=== PATIENT | female | born 1935 | race Caucasian/White ===

== ENCOUNTER 2017-11-04 09:06 | Observation (INO) | payer OTHER ==
[2017-11-04 09:49] LABS: Absolute Lymphocytes (CBC) 2.8 K/uL (0.7-4.9); Absolute Monocytes 0.6 K/uL (0.1-1.3); Absolute Neutrophil 5.5 K/uL (1.8-8.0); Basophils % 1.1 % (0-1.3); Eosinophils % 2.1 % (0-4.4); Hematocrit 38.8 % (36.0-45.0); Lymphocytes % 30.4 % (15.3-44.8); MCH 32.3 pg (27.0-35.0); MCV 93.9 fL (80-100); MPV 10.6 fL (7.6-11.3); Monocytes % 6.3 % (3.3-12.3); RBC Red Blood Cell Count 4.13 M/uL (3.86-4.86)
[2017-11-04 10:21] LABS: Bilirubin Direct 0.1 mg/dL (0-0.2); Bilirubin Total 0.7 mg/dL (0.2-1.0); Potassium 4.9 mmol/L (3.5-5.1); Protein, Total 7.3 g/dL (6.4-8.2)
--- NOTE | 2017-11-04 11:09 | RAD REPORT ---
EXAM DESCRIPTION: CT - Abdomen Pelvis W Contrast - 11/04/2017 10:52 am CLINICAL HISTORY: Abdominal pain, bloody stools, history of diverticulitis, hemorrhoids and renal ca lculi. Patient is status post hysterectomy, ovarian cyst removal and bladder suspension COMPARISON: CT study November 2016 TECHNIQUE: Biphasic, helical CT imaging of the abdomen and pelvis was performed following 100 ml non -ionic IV contrast. No oral contrast given. All CT scans are performed using dose optimization technique as appropriate and may include automated exposure control or mA/KV adjustment according to patient size. FINDINGS: No acute lung base pleural or parenchymal process. No pericardial effusion seen. Again not ed is the very large hiatal hernia with the majority of the stomach intrathoracic. This is similar to the examination of 11 months earlier. The liver, spleen, and pancreas show no suspicious findings. Gallbladder and biliary tree are also wi thout suspicious finding. Symmetric renal function is seen with no hydronephrosis or suspicious renal mass. Patient has numerou s variably sized cysts throughout the kidneys. A few have mildly complex characteristics. No clear ch clifford from almost 1 year earlier. No urinary bladder abnormality. Uterus is absent. Ovaries may be abs ent or obscured by the pelvic floor bowel pattern. An ovarian based mass is not suspected. No wall thickening or mass seen in the herniated and intraabdominal portions of the stomach. No dilat ed small bowel loops. There is a loop of small bowel that is herniated into the left inguinal canal. This matches the examination of 1 year earlier. No wall thickening, edema or other findings of an acu te nature. Patient has a large amount of stool throughout the colon. Patient has a very tortuous and redundant r ectosigmoid colon with very extensive diverticulosis. No clearly defined diverticulitis. Mild mucosal level inflammatory changes could be occult on this study. The hiatal hernia contains a very small po rtion of the left-side transverse colon. No acute process. No free air, free fluid or inflammatory stranding. No mass or bulky lymphadenopathy. No adrenal abno rmality. Disc and bony degenerative changes are present. No pathologic bone process or significant change from comparison. IMPRESSION: Very extensive diverticulosis within an extremely tortuous and redundant rectosigmoid co yoav. An active colon process is not seen though more mild mucosal level inflammatory process could be occu lt on this study. Very large hiatal hernia containing most of the stomach and a small portion of the transverse colon. Left inguinal hernia contains a short segment of small bowel. Neither hernia shows evidence for an ac ashlyn process in the findings are stable from comparison.
--- NOTE | 2017-11-04 11:37 | EDPHYS ---
Physician Documentation [facility] Name: Kevin Andujar Age: 82 yrs Sex: Female : 1935 Arrival Date: 11/04/2017 Time: 09:09 Bed 20 Private MD: Gold Florence ED Physician Justin Khalil HPI: 11/04 16:46 This 82 yrs old Female presents to ER via Ambulatory with complaints of kdr Rectal Bleeding. 16:46 The patient presents to the emergency department with bleeding from the rectum/anus, kdr that is mild. Onset: The symptoms/episode began/occurred suddenly, this morning, This is a chronic, intermittent problem that is again recurrent. Her stools have had dark blood but minor rectal pain. She has hemorrhoids . Context: the patient has no known special context relating to the rectal area complaint(s). Modifying factors: The symptoms are alleviated by nothing, The symptoms are aggravated by nothing. Associate signs and symptoms: Pertinent positives: abdominal pain in the abdomen diffusely. The patient has experienced similar episodes in the past, chronically. The patient has not recently seen a physician. Historical: - Allergies: 09:24 No Known Allergies; sv - Home Meds: 09:24 amlodipine 10 mg tab 1 tab once daily for Hypertension [Active]; valsartan 160 mg Oral sv tab 1 tab once daily for Hypertension [Active]; 09:29 tamsulosin 0.4 mg Oral cp24 1 cap once daily for Urolithiasis [Active]; tw2 - PMHx: 09:24 Diverticulitis; hemorrhoids; Hypertension; Urolithiasis; sv - PSHx: 09:24 Hysterectomy; Tonsillectomy; Bladder suspension; ovarian cyst removed from R ovary; L sv arm leasion; - Immunization history:: Adult Immunizations up to date. - Social history:: Smoking status: Patient/guardian denies using tobacco. - Ebola Screening: : No symptoms or risks identified at this time. ROS: 16:46 Constitutional: Negative for fever, chills, and weight loss, Eyes: Negative for injury, kdr pain, redness, and discharge, Neck: Negative for injury, pain, and swelling, Cardiovascular: Negative for chest pain, palpitations, and edema, Respiratory: Negative for shortness of breath, cough, wheezing, and pleuritic chest pain, Back: Negative for injury and pain, : Negative for injury, bleeding, discharge, and swelling, MS/Extremity: Negative for injury and deformity, Skin: Negative for injury, rash, and discoloration, Neuro: Negative for headache, weakness, numbness, tingling, and seizure activity. Psych: Negative for depression, anxiety, suicide ideation, homicidal ideation, and hallucinations, Allergy/Immunology: Negative for hives, rash, and allergies, Endocrine: Negative for neck swelling, polydipsia, polyuria, polyphagia, and marked weight changes, Hematologic/Lymphatic: Negative for swollen nodes, abnormal bleeding, and unusual bruising. 16:46 Abdomen/GI: Positive for abdominal pain, rectal bleeding, Negative for nausea and vomiting, nausea, vomiting, and diarrhea, abdominal distension, dysphagia, hematemesis, black/tarry stool, rectal pain, bowel incontinence. Exam: 16:46 Constitutional: This is a well developed, well nourished patient who is awake, alert, kdr and in no acute distress. Head/Face: Normocephalic, atraumatic. Eyes: Pupils equal round and reactive to light, extra-ocular motions intact. Lids and lashes normal. Conjunctiva and sclera are non-icteric and not injected. Cornea within normal limits. Periorbital areas with no swelling, redness, or edema. Neck: Trachea midline, no thyromegaly or masses palpated, and no cervical lymphadenopathy. Supple, full range of motion without nuchal rigidity, or vertebral point tenderness. No Meningismus. Chest/axilla: Normal chest wall appearance and motion. Nontender with no deformity. No lesions are appreciated. Cardiovascular: Regular rate and rhythm with a normal S1 and S2. No gallops, murmurs, or rubs. Normal PMI, no JVD. No pulse deficits. Respiratory: Lungs have equal breath sounds bilaterally, clear to auscultation and percussion. No rales, rhonchi or wheezes noted. No increased work of breathing, no retractions or nasal flaring. Back: No spinal tenderness. No costovertebral tenderness. Full range of motion. Skin: Warm, dry with normal turgor. Normal color with no rashes, no lesions, and no evidence of cellulitis. MS/ Extremity: Pulses equal, no cyanosis. Neurovascular intact. Full, normal range of motion. Neuro: Awake and alert, GCS 15, oriented to person, place, time, and situation. Cranial nerves II-XII grossly intact. Motor strength 5/5 in all extremities. Sensory grossly intact. Cerebellar exam normal. Normal gait. Psych: Awake, alert, with orientation to person, place and time. Behavior, mood, and affect are within normal limits. 16:46 Abdomen/GI: Inspection: abdomen appears normal, Bowel sounds: normal, active, Palpation: soft, nontender, in all quadrants, Rectal exam: rectal tone normal, Stool: brown, guaiac positive. Vital Signs: 09:24 BP 159 / 111; Pulse 96; Resp 18; Temp 98.5; Pulse Ox 96% ; Weight 49.9 kg; Height 5 ft. sv 2 in. (157.48 cm); Pain 0/10; 09:28 BP 146 / 74; Pulse 90; Resp 19; Pulse Ox 95% on R/A; tw2 11:14 BP 150 / 65; Pulse 96; Resp 17; Pulse Ox 97% on R/A; aj 13:16 BP 151 / 77; Pulse 78; Resp 18; Pulse Ox 98% on R/A; aj 09:24 Body Mass Index 20.12 (49.90 kg, 157.48 cm) sv MDM: 11:36 Patient medically screened. kdr 16:46 Data reviewed: vital signs, nurses notes, lab test result(s), radiologic studies. kdr Counseling: I had a detailed discussion with the patient and/or guardian regarding: the historical points, exam findings, and any diagnostic results supporting the discharge/admit diagnosis, lab results, radiology results, the need for further work-up and treatment in the hospital. 11/04 09:23 Order name: Amylase, Serum; Complete Time: 11:28 kdr 11/04 09:23 Order name: Basic Metabolic Panel; Complete Time: 11:28 kdr 11/04 09:23 Order name: CBC with Diff; Complete Time: 11:28 kdr 11/04 09:23 Order name: Creatinine for Radiology; Complete Time: 11:28 kdr 11/04 09:23 Order name: Hepatic Function; Complete Time: 11:28 kdr 11/04 09:23 Order name: Lipase; Complete Time: 11:28 kdr 11/04 09:23 Order name: Urine Microscopic Only kdr 11/04 11:54 Order name: Urine Dipstick--Ancillary (enter results) eb 11/04 11:59 Order name: Basic Metabolic Panel EDMS 11/04 11:59 Order name: Basic Metabolic Panel EDMS 11/04 11:59 Order name: Basic Metabolic Panel EDMS 11/04 11:59 Order name: Basic Metabolic Panel EDMS 11/04 11:59 Order name: Magnesium EDMS 11/04 11:59 Order name: Magnesium EDMS 11/04 09:23 Order name: IV Saline Lock; Complete Time: 09:30 kdr 11/04 09:23 Order name: Labs collected and sent; Complete Time: 09:30 kdr 11/04 09:23 Order name: Urine Dipstick-Ancillary (obtain specimen); Complete Time: 11:27 kdr 11/04 09:41 Order name: CT Abd/Pelvis - W/Contrast; Complete Time: 11:28 kdr 11/04 11:59 Order name: Magnesium EDMS 11/04 11:59 Order name: Magnesium EDMS 11/04 11:59 Order name: Full Liquid EDMS 11/04 11:59 Order name: Urinalysis EDMS 11/04 11:59 Order name: CBC with Automated Diff EDMS 11/04 11:59 Order name: CBC with Automated Diff EDMS 11/04 11:59 Order name: CBC with Automated Diff EDMS 11/04 11:59 Order name: CBC with Automated Diff EDMS 11/04 12:00 Order name: Urine Culture EDMS Administered Medications: No medications were administered Disposition: 11/04/17 11:36 Hospitalization ordered by Wilder Galaviz for Observation. Preliminary diagnosis is Rectal bleeding, abdominal pain, GI bleeding. - Bed requested for Telemetry/MedSurg (observation). - Status is Observation. aj - Condition is Fair. - Problem is an acute exacerbation. - Symptoms are unchanged. UTI on Admission? No Signatures: Dispatcher [employer] EDMS Roma Davila RN RN sv Woody, Diana, RN RN dw Myers, Amanda, RN RN aj Rittger, Kevin, MD MD kdr Wise, Tara, RN RN tw2 Corrections: (The following items were deleted from the chart) 13:01 11:36 Hospitalization Ordered by Wilder Galaviz DO for Observation. Preliminary monica diagnosis is Rectal bleeding, abdominal pain, GI bleeding. Bed requested for Telemetry/MedSurg (observation). Status is Observation. Condition is Fair. Problem is an acute exacerbation. Symptoms are unchanged. UTI on Admission? No. kdr 13:43 13:01 11/04/2017 11:36 Hospitalization Ordered by Wilder Galaviz DO for Observation. aj Preliminary diagnosis is Rectal bleeding, abdominal pain, GI bleeding. Bed requested for Telemetry/MedSurg (observation). Status is Observation. Condition is Fair. Problem is an acute exacerbation. Symptoms are unchanged. UTI on Admission? No. dw
--- NOTE | 2017-11-04 11:37 | ER ---
Nurse's Notes [facility] Name: Kevin Andujar Age: 82 yrs Sex: Female : 1935 Arrival Date: 11/04/2017 Time: 09:09 Bed 20 Private MD: Gold Florence Diagnosis: Rectal bleeding, abdominal pain, GI bleeding Presentation: 11/04 09:17 Presenting complaint: Patient states: intermittent bloody stool x "couple weeks" , sv "dark" in color. Increased flatulence, c/o dizziness. Transition of care: patient was not received from another setting of care. Onset of symptoms was September 2017. Care prior to arrival: None. 09:17 Method Of Arrival: Ambulatory sv 09:17 Acuity: NOE 3 sv 09:28 Risk Assessment: Do you want to hurt yourself or someone else? Patient reports no tw2 desire to harm self or others. Initial Sepsis Screen: Does the patient meet any 2 criteria? No. Patient's initial sepsis screen is negative. Does the patient have a suspected source of infection? No. Patient's initial sepsis screen is negative. Historical: - Allergies: 09:24 No Known Allergies; sv - Home Meds: 09:24 amlodipine 10 mg tab 1 tab once daily for Hypertension [Active]; valsartan 160 mg Oral sv tab 1 tab once daily for Hypertension [Active]; 09:29 tamsulosin 0.4 mg Oral cp24 1 cap once daily for Urolithiasis [Active]; tw2 - PMHx: 09:24 Diverticulitis; hemorrhoids; Hypertension; Urolithiasis; sv - PSHx: 09:24 Hysterectomy; Tonsillectomy; Bladder suspension; ovarian cyst removed from R ovary; L sv arm leasion; - Immunization history:: Adult Immunizations up to date. - Social history:: Smoking status: Patient/guardian denies using tobacco. - Ebola Screening: : No symptoms or risks identified at this time. Screenin:28 Abuse screen: Denies threats or abuse. Nutritional screening: No deficits noted. tw2 Tuberculosis screening: No symptoms or risk factors identified. Fall Risk None identified. Assessment: 09:40 General: Appears in no apparent distress. comfortable, Behavior is calm, cooperative, aj appropriate for age. Pain: Denies pain. Neuro: Level of Consciousness is awake, alert, obeys commands, Oriented to person, place, time, situation, Appropriate for age. Cardiovascular: Denies chest pain. Respiratory: Airway is patent Respiratory effort is even, unlabored, Respiratory pattern is regular, symmetrical. GI: Abdomen is flat, non-distended, Reports cramping, bloody stool. Derm: Skin is intact, is healthy with good turgor, Skin is pink, warm \\T\\ dry. normal. 11:42 Reassessment: Dr. Galaviz at bedside at this time. tw2 13:25 Reassessment: Patient appears in no apparent distress at this time. No changes from aj previously documented assessment. Patient and/or family updated on plan of care and expected duration. Pain level reassessed. Patient is alert, oriented x 3, equal unlabored respirations, skin warm/dry/pink. Vital Signs: 09:24 BP 159 / 111; Pulse 96; Resp 18; Temp 98.5; Pulse Ox 96% ; Weight 49.9 kg; Height 5 ft. sv 2 in. (157.48 cm); Pain 0/10; 09:28 BP 146 / 74; Pulse 90; Resp 19; Pulse Ox 95% on R/A; tw2 11:14 BP 150 / 65; Pulse 96; Resp 17; Pulse Ox 97% on R/A; aj 13:16 BP 151 / 77; Pulse 78; Resp 18; Pulse Ox 98% on R/A; aj 09:24 Body Mass Index 20.12 (49.90 kg, 157.48 cm) sv ED Course: 09:09 Patient arrived in ED. mr 09:09 Gold Florence MD is Private Physician. mr 09:09 Justin Khalil MD is Attending Physician. kdr 09:17 Arm band placed on right wrist. Patient placed in an exam room, on a stretcher. sv 09:23 Triage completed. sv 09:28 Placed in gown. Bed in low position. Call light in reach. Side rails up X 1. Cardiac tw2 monitor on. Pulse ox on. NIBP on. Warm blanket given. 09:40 Sol Mcdonnell, GEETHA is Primary Nurse. aj 09:40 Initial lab(s) drawn, by ct, sent to lab. Inserted saline lock: 20 gauge in right aj antecubital area, using aseptic technique. Blood collected. 10:[address] via wheelchair. 2 10:51 CT completed. Patient tolerated procedure well. Patient moved back from CT. 2 10:52 CT Abd/Pelvis - W/Contrast In Process Unspecified. EDMS 11:27 Urine Microscopic Only Sent. 5 11:27 Urine collected: clean catch specimen, clear. [facility] 11:35 Wilder Galaviz DO is Hospitalizing Provider. kdr 13:25 No provider procedures requiring assistance completed. Patient admitted, IV remains in aj place. Administered Medications: No medications were administered Outcome: 11:36 Decision to Hospitalize by Provider. kdr 13:25 Admitted to Med/surg aj 13:25 Condition: good 13:25 Instructed on the need for admit. 13:43 Patient left the ED. aj Signatures: Dispatcher [employer] EDRoma Rosales, RN Sol Martínez RN RN aj Rittger, Kevin, MD MD [facility] Kathleen Davila Tara, RN RN tw2 Martinez, Maria [facility] Farnaz Dorantes 2
[2017-11-04] MEDS ORDERED: TRAMADOL HCL 50 MG TAB PO PRN (11:53)
[2017-11-04] MEDS ORDERED: ONDANSETRON 4 MG/2 ML VIAL IV PRN (11:53)
[2017-11-04] MEDS ORDERED: HYDROCODONE/APAP 7.5/325 MG TAB PO PRN (11:53)
[2017-11-04 11:58] LABS: Urine Bacteria 20-50 /HPF (<20); Urine Culture Reflex Order REFLEXED
--- NOTE | 2017-11-04 12:40 | P.HP ---
Certification for Inpatient Patient admitted to: Observation With expected LOS: <2 Midnights Patient will require the following post-hospital care: None Practitioner: I am a practitioner with admitting privileges, knowledge of patient current condition, hospital course, and medical plan of care. Services: Services provided to patient in accordance with Admission requirements found in Title 42 Section 412.3 of the Code of Federal Regulations Patient History Date of Service: 11/04/17 Primary Care Provider: Dr. Florence; GI-Dr. Donohue/Dr. Walter Reason for admission: Melena History of Present Illness: 82-year-old female presented emergency room with melena. Patient reports melena over the past week. She also reports some episodes of cramping to the abdominal region last week. Patient reports a history of severe diverticulitis and diverticulosis. She was last seen by GI about a year ago. She was last hospitalized for diverticulitis about a year ago. Patient not feeling well. She denied any significant nausea, vomiting. No rectal bleeding was noted. She came to the ER for further evaluation. In the ER patient was evaluated. Hemoglobin 13.3. White count 9.1. Sodium 141 , potassium 4.9, BUN of 38, creatinine 1.2 with a GFR 43. Glucose 109. Lipase 397, amylase 80. CT abdomen showed extensive diverticulosis. No definitive diverticulitis was noted showed bacteria. The patient has a large hiatal hernia. Left inguinal hernia noted. The patient was admitted for further evaluation. When I saw the patient ER, she appeared comfortable. No significant abdominal pain noted. No nausea vomiting noted. Patient with history of diverticulosis and diverticulitis in the past. She reports seen by a GI. Her last colonoscopy was a year ago. She also saw all surgery in the past for possible need for colectomy. Surgery did not recommend colectomy at that time. Patient with history of hypertension, GERD with hiatal hernia. She does not smoke or drink. Allergies No Known Drug Allergies Allergy (Verified 11/30/16 02:56) Unknown No Know Allergy (Uncoded 11/30/16 03:08) Unknown Home medications list reviewed: Yes Home Medications: Amlodipine Besylate 10 mg PO DAILY 03/05/16 Tamsulosin [Flomax*] 0.4 mg PO BEDTIME 03/05/16 Valsartan [Diovan*] 160 mg PO DAILY 03/05/16 Ciprofloxacin HCl [Cipro 500 MG Tablet] 500 mg PO BID #20 tab 12/01/16 metroNIDAZOLE [Flagyl] 500 mg PO Q8H #30 tablet 12/01/16 - Past Medical/Surgical History Diabetic: No -: Diverticulosis, history diverticulitis -: HTN -: History of bladder retention, status post bladder suspension -: Frequent UTI -: GERD with hiatal hernia -: Hemorrhoids -: Chronic renal disease -: Bladder suspension -: Hysterectomy -: Removal of cyst to the right ovary -: Removal of cyst to the left wrist -: Tonsillectomy Psychosocial/ Personal History: Patient is a . She lives by herself. She has 2 children. - Family History Mother -: Lung disease, GI disease Notes: diverticulosis Father Notes: of nephritis at age of 45 - Social History Smoking Status: Never smoker Alcohol use: No CD- Drugs: No Caffeine use: Yes Place of Residence: Home Review of Systems General: Weakness, As per HPI Eyes: Unremarkable ENT: Unremarkable Respiratory: Unremarkable Cardiovascular: Unremarkable Gastrointestinal: Abdominal Pain, Melena, As per HPI Genitourinary: Frequency, Incontinence, As per HPI Musculoskeletal: Unremarkable Integumentary: Unremarkable Neurological: Unremarkable Lymphatics: Unremarkable Physical Examination - Physical Exam General: Alert, In no apparent distress, Oriented x3, Cooperative HEENT: Atraumatic, Normocephalic, PERRLA, Mucous membr. moist/pink Neck: Supple, No Thyromegaly Respiratory: Clear to auscultation bilaterally, Normal air movement Cardiovascular: Normal pulses, Regular rate/rhythm Gastrointestinal: Normal bowel sounds, Soft and benign, Non-distended, No ascites, No tenderness, No masses, No rebound, No guarding Musculoskeletal: No erythema, No tenderness, No warmth Integumentary: No tenderness/swelling, No erythema, No warmth, No cyanosis Neurological: Normal speech, Normal strength at 5/5 x4 extr, Normal tone, Normal affect - Studies Laboratory Data (last 24 hrs) 11/04/17 09:30: Creatinine 1.20 11/04/17 09:30: WBC 9.1, Hgb 13.3, Hct 38.8, Plt Count 232 11/04/17 09:30: Sodium 141, Potassium 4.9, BUN 38 H, Creatinine 1.20, Glucose 109 H, Total Bilirubin 0.7, AST 21, ALT 21, Alkaline Phosphatase 87, Amylase 80 , Lipase 397 H Assessment and Plan - Problems (Diagnosis) (1) Melena Current Visit: Yes Status: Acute Plan: Melena likely related to her diverticulosis. CT scan shows no diverticulitis but will start IV antibiotic therapy. Will provide IV fluids. Will monitor closely. Anticipate discharge tomorrow if without any significant pain or melena. Hemoglobin stable at this time. Patient will likely need to follow up with GI as an outpatient. Patient has seen surgery in the past. Surgery did not recommend intervention. Patient does not desire any surgical intervention. (2) Diverticulitis Current Visit: Yes Status: Suspected Plan: Patient may have mild diverticulitis. Will start IV antibiotic therapy. Will monitor closely. Continue IV fluids. (3) Hiatal hernia with GERD Current Visit: Yes Status: Chronic Plan: Will provide PPI. (4) Chronic renal disease Current Visit: Yes Status: Acute Plan: Acute on chronic renal disease. Will monitor closely. Will provide IV fluids. Qualifiers: Chronic kidney disease stage: stage 3 (moderate) Qualified Code(s): N18.3 - Chronic kidney disease, stage 3 (moderate) (5) Diverticulosis Onset Date: 11/30/16 Current Visit: No Status: Chronic Plan: Patient has known history of diverticulosis. CT scan reviewed. Continue as above. Anticipate discharge tomorrow. Qualifiers: Diverticulosis bleeding: diverticulosis without bleeding (6) UTI (urinary tract infection) Current Visit: No Status: Acute Plan: Will cover with IV antibiotic therapy. Will send for urine culture. Qualifiers: Urinary tract infection type: site unspecified Hematuria presence: without hematuria Qualified Code(s): N39.0 - Urinary tract infection, site not specified (7) HTN (hypertension) Onset Date: 11/30/16 Current Visit: No Status: Chronic Plan: Will provide medication. Qualifiers: Hypertension type: essential hypertension Discharge Plan: Home Plan to discharge in: 24 Hours - Advance Directives Does patient have a Living Will: Yes Does patient have a Durable POA for Healthcare: Yes - Code Status/Comfort Care Code Status Assessed: Yes (Patient wishes to be DNR) Time Spent Managing Pts Care (In Minutes): 55
[2017-11-04 12:42] LABS: Urine Blood 2+ (NEG); Urine Glucose NEGATIVE (NEG); Urine Protein 1+ (NEG); Urine Specific Gravity 1.005 (1.005-1.030); Urine pH 5.5 (5.0-7.0)
[2017-11-04] MEDS: CIPROFLOXACIN 400mg IV 400 MG/200 ML BAG IV SCH ×2 (14:13→21:28)
[2017-11-04] MEDS: METRONIDAZOLE 500mg IVPB 500 MG/100 ML BAG IV SCH ×2 (14:14→17:00)
[2017-11-04] MEDS: ENOXAPARIN 30 MG/0.3 ML SQ SCH (14:15)
[2017-11-04] MEDS: NA CHLORIDE 0.9% 1,000 ML IV SCH ×2 (14:15→21:28)
[2017-11-04] MEDS: ACETAMINOPHEN 500 MG TAB PO PRN ×2 (14:27→23:13)
[2017-11-04 16:32] VITALS: BMI 20.1
[2017-11-04] MEDS ORDERED: AMLODIPINE 10 MG TAB PO SCH (21:00)
[2017-11-05] MEDS: METRONIDAZOLE 500mg IVPB 500 MG/100 ML BAG IV SCH ×2 (00:09→10:21)
[2017-11-05 00:36] VITALS: O2SAT 94
[2017-11-05] MEDS: ACETAMINOPHEN 500 MG TAB PO PRN (05:04)
[2017-11-05 05:27] LABS: Absolute Lymphocytes (CBC) 2.8 K/uL (0.7-4.9); Absolute Monocytes 0.8 K/uL (0.1-1.3); Absolute Neutrophil 5.8 K/uL (1.8-8.0); Basophils % 0.6 % (0-1.3); Eosinophils % 1.9 % (0-4.4); Hematocrit 38.9 % (36.0-45.0); Lymphocytes % 29.3 % (15.3-44.8); MCV 94.8 fL (80-100); MPV 10.5 fL (7.6-11.3); Monocytes % 7.9 % (3.3-12.3)
[2017-11-05 05:31] LABS: Magnesium 2.1 mg/dL (1.8-2.4); Potassium 4.2 mmol/L (3.5-5.1)
[2017-11-05] MEDS ORDERED: PANTOPRAZOLE 40MG TABLET PO SCH (07:30)
[2017-11-05] MEDS: NA CHLORIDE 0.9% 1,000 ML IV SCH (08:00)
[2017-11-05] MEDS ORDERED: AMLODIPINE 10 MG TAB PO SCH (09:00)
[2017-11-05 09:04] VITALS: BP 131/60; TEMP 97.4
--- NOTE | 2017-11-05 10:04 | P.DS ---
Admission Date: 11/04/17 Discharge Date: 11/05/17 Primary Care Provider: Dr. Florence; GI-Dr. Donohue/Dr. Walter Disposition: ROUTINE DISCHARGE Discharge Condition: GOOD Reason for Admission: Melena Procedures: CT Scan: COMPARISON: CT study November 2016 TECHNIQUE: Biphasic, helical CT imaging of the abdomen and pelvis was performed following 100 ml non-ionic IV contrast. No oral contrast given. All CT scans are performed using dose optimization technique as appropriate and may include automated exposure control or mA/KV adjustment according to patient size. FINDINGS: No acute lung base pleural or parenchymal process. No pericardial effusion seen. Again noted is the very large hiatal hernia with the majority of the stomach intrathoracic. This is similar to the examination of 11 months earlier. The liver, spleen, and pancreas show no suspicious findings. Gallbladder and biliary tree are also without suspicious finding. Symmetric renal function is seen with no hydronephrosis or suspicious renal mass. Patient has numerous variably sized cysts throughout the kidneys. A few have mildly complex characteristics. No clear change from almost 1 year earlier. No urinary bladder abnormality. Uterus is absent. Ovaries may be absent or obscured by the pelvic floor bowel pattern. An ovarian based mass is not suspected. No wall thickening or mass seen in the herniated and intraabdominal portions of the stomach. No dilated small bowel loops. There is a loop of small bowel that is herniated into the left inguinal canal. This matches the examination of 1 year earlier. No wall thickening, edema or other findings of an acute nature. Patient has a large amount of stool throughout the colon. Patient has a very tortuous and redundant rectosigmoid colon with very extensive diverticulosis. No clearly defined diverticulitis. Mild mucosal level inflammatory changes could be occult on this study. The hiatal hernia contains a very small portion of the left-side transverse colon. No acute process. No free air, free fluid or inflammatory stranding. No mass or bulky lymphadenopathy. No adrenal abnormality. Disc and bony degenerative changes are present. No pathologic bone process or significant change from comparison. IMPRESSION: Very extensive diverticulosis within an extremely tortuous and redundant rectosigmoid colon. An active colon process is not seen though more mild mucosal level inflammatory process could be occult on this study. Very large hiatal hernia containing most of the stomach and a small portion of the transverse colon. Left inguinal hernia contains a short segment of small bowel. Neither hernia shows evidence for an acute process in the findings are stable from comparison. - Problems (1) Melena Onset Date: 11/05/17 Current Visit: Yes Status: Acute (2) Diverticulitis Onset Date: 11/05/17 Current Visit: Yes Status: Suspected (3) Hiatal hernia with GERD Onset Date: 11/05/17 Current Visit: Yes Status: Chronic (4) Chronic renal disease Onset Date: 11/05/17 Current Visit: Yes Status: Acute Qualifiers: Chronic kidney disease stage: stage 2 (mild) Qualified Code(s): N18.2 - Chronic kidney disease, stage 2 (mild) (5) Diverticulosis Onset Date: 11/30/16 Current Visit: No Status: Chronic Qualifiers: Diverticulosis bleeding: diverticulosis without bleeding (6) UTI (urinary tract infection) Onset Date: 11/05/17 Current Visit: Yes Status: Suspected Qualifiers: Urinary tract infection type: site unspecified Hematuria presence: without hematuria Qualified Code(s): N39.0 - Urinary tract infection, site not specified (7) HTN (hypertension) Onset Date: 11/30/16 Current Visit: No Status: Chronic Qualifiers: Hypertension type: essential hypertension Brief History of Present Illness: 82-year-old female presented emergency room with melena. Patient reports melena over the past week. She also reports some episodes of cramping to the abdominal region last week. Patient reports a history of severe diverticulitis and diverticulosis. She was last seen by GI about a year ago. She was last hospitalized for diverticulitis about a year ago. Patient not feeling well. She denied any significant nausea, vomiting. No rectal bleeding was noted. She came to the ER for further evaluation. In the ER patient was evaluated. Hemoglobin 13.3. White count 9.1. Sodium 141 , potassium 4.9, BUN of 38, creatinine 1.2 with a GFR 43. Glucose 109. Lipase 397, amylase 80. CT abdomen showed extensive diverticulosis. No definitive diverticulitis was noted showed bacteria. The patient has a large hiatal hernia. Left inguinal hernia noted. The patient was admitted for further evaluation. When I saw the patient ER, she appeared comfortable. No significant abdominal pain noted. No nausea vomiting noted. Patient with history of diverticulosis and diverticulitis in the past. She reports seen by a GI. Her last colonoscopy was a year ago. She also saw all surgery in the past for possible need for colectomy. Surgery did not recommend colectomy at that time. Patient with history of hypertension, GERD with hiatal hernia. She does not smoke or drink. Hospital Course: During the course of her stay patient reported no further melena, abdominal pain or nausea and vomiting. CT scan did not show any diverticulitis. Patient has significant history of diverticulosis. CT scan revealed this along with a large hiatal hernia. Patient was started on antibiotic therapy. White count remained normal. Hemoglobin remained within normal range. Due to her history, the patient will continue with antibiotics at discharge. At discharge she will continue with Cipro 500 mg twice daily and Flagyl 500 mg 3 times a day for 10 days. Recommendation is for the patient follow up with her GI specialist in 2- 4 weeks. Patient may require colonoscopy in 4-6 weeks to further address her condition. Patient has seen surgery in the past. No surgical intervention was recommended at that time. Education on diverticulitis will be provided. Recommendation is to recheck lab-CBC, BMP in 2-4 weeks to monitor her progress. Patient has hypertension. Patient takes Norvasc and valsartan. I will discontinue valsartan at discharge, as this has been recalled. Patient will continue with Norvasc 10 mg daily at discharge. Recommendation is to maintain blood pressures less 150/80. Further adjustment can be done by her PCP. Patient has a large hiatal hernia. Patient likely has GERD is well. Patient will continue with Protonix 40 mg 1 pill once daily. Recommendation is for the patient follow up with GI as an outpatient to further evaluate. Patient presented with acute on chronic renal disease. This is likely from mild dehydration. This improved. Recommendation is to recheck lab-BMP in 1-2 weeks to monitor progress. Recommendation is for the patient to follow up with nephrology as an outpatient to monitor. UTI was suspected. Urine culture shows mixed jose alfredo. Patient did not report any significant symptoms of UTI. No need for antibiotics at this time. Patient will need to have her PCP follow up on urine culture results. Patient takes Flomax 0.4 mg daily, I suspect for urinary retention. This can be continued. Further adjustment can be done by her PCP or urology. Vital Signs/Physical Exam: Temp Pulse Resp BP Pulse Ox 97.4 F 79 17 131/60 93 11/05/17 08:00 11/05/17 08:00 11/05/17 08:00 11/05/17 08:00 11/05/17 08:00 General: Alert, In no apparent distress, Oriented x3, Cooperative HEENT: Atraumatic Neck: Supple Respiratory: Clear to auscultation bilaterally, Normal air movement Cardiovascular: Normal pulses, Regular rate/rhythm Gastrointestinal: Normal bowel sounds, Soft and benign, Non-distended, No tenderness, No masses, No rebound, No guarding Musculoskeletal: No erythema, No tenderness, No warmth Integumentary: No tenderness/swelling, No erythema, No warmth, No cyanosis Neurological: Normal speech, Normal strength at 5/5 x4 extr, Normal tone, Normal affect Laboratory Data at Discharge: WBC 9.7 K/uL (4.3-10.9) 11/05/17 04:33 Hgb 13.1 g/dL (12.0-15.0) 11/05/17 04:33 Hct 38.9 % (36.0-45.0) 11/05/17 04:33 Plt Count 230 K/uL (152-406) 11/05/17 04:33 Sodium 143 mmol/L (136-145) 11/05/17 04:33 Potassium 4.2 mmol/L (3.5-5.1) 11/05/17 04:33 BUN 23 mg/dL (7-18) H 11/05/17 04:33 Creatinine 1.10 mg/dL (0.55-1.3) 11/05/17 04:33 Glucose 105 mg/dL (74-106) 11/05/17 04:33 Magnesium 2.1 mg/dL (1.8-2.4) 11/05/17 04:33 Total Bilirubin 0.7 mg/dL (0.2-1.0) 11/04/17 09:30 AST 21 U/L (15-37) 11/04/17 09:30 ALT 21 U/L (12-78) 11/04/17 09:30 Alkaline Phosphatase 87 U/L (45-117) 11/04/17 09:30 Amylase 80 U/L (25-115) 11/04/17 09:30 Lipase 397 U/L (73-393) H 11/04/17 09:30 Home Medications: Amlodipine Besylate 10 mg PO BEDTIME 03/05/16 Tamsulosin [Flomax*] 0.4 mg PO DAILY 03/05/16 Ciprofloxacin HCl [Cipro 500 MG Tablet] 500 mg PO BID #14 tab 11/05/17 Pantoprazole [Protonix Tab*] 40 mg PO DAILY #30 tab 11/05/17 metroNIDAZOLE [Flagyl] 500 mg PO Q8H #21 tablet 11/05/17 New Medications: Ciprofloxacin HCl [Cipro 500 MG Tablet] 500 mg PO BID #14 tab metroNIDAZOLE [Flagyl] 500 mg PO Q8H #21 tablet Pantoprazole [Protonix Tab*] 40 mg PO DAILY #30 tab Patient Discharge Instructions: 1. Patient will need a follow up with her PCP in 1 week to follow up this hospitalization. 2. Patient presented with melena , abdominal pain or nausea and vomiting. CT scan did not show any significant diverticulitis. Patient has significant history of diverticulosis. CT scan also revealed a large hiatal hernia. Patient was started on antibiotic therapy for early diverticulitis. White count remained normal. Hemoglobin was within normal range. Due to her history, the patient will continue with antibiotics at discharge. At discharge she will continue with Cipro 500 mg twice daily and Flagyl 500 mg 3 times a day for 10 days. Recommendation is for the patient follow up with her GI specialist in 2-4 weeks. Patient may require colonoscopy in 4-6 weeks to further address her condition. Patient has seen surgery in the past. No surgical intervention was recommended at that time. Education on diverticulitis will be provided. Recommendation is to recheck lab-CBC, BMP in 2 -4 weeks to monitor her progress. 3. Patient has hypertension. Patient takes Norvasc and valsartan. I will discontinue valsartan at discharge, as this has been recalled. Patient will continue with Norvasc 10 mg daily at discharge. Recommendation is to maintain blood pressures less 150/80. Further adjustment can be done by her PCP. 4. Patient has a large hiatal hernia. Patient likely has GERD is well. Patient will continue with Protonix 40 mg 1 pill once daily. Recommendation is for the patient follow up with GI as an outpatient to further evaluate. 5. Patient presented with acute on chronic renal disease. This is likely from mild dehydration. This improved. Recommendation is to recheck lab-BMP in 1-2 weeks to monitor progress. Recommendation is for the patient to follow up with nephrology as an outpatient to monitor. 6. UTI was suspected. Urine culture shows mixed jose alfredo. Patient did not report any significant symptoms of UTI. No need for antibiotics at this time. Recommendation is for the patient to have her PCP follow up on urine culture results. Patient takes Flomax 0.4 mg daily, I suspect for urinary retention. This can be continued. Further adjustment can be done by her PCP or urology. Diet: AHA Activity: Fall precautions Time spent managing pt's care (in minutes): 55
[2017-11-05] MEDS: ENOXAPARIN 30 MG/0.3 ML SQ SCH (10:20)
[2017-11-05] MEDS: CIPROFLOXACIN 400mg IV 400 MG/200 ML BAG IV SCH (10:20)
== END 2017-11-05 11:53 | disposition home or self-care (01) ==
LOC: ER 09:06 → ERHOLD 11:33 → 4TH 13:26
PROVIDERS: ADMIT Family Medicine; ATTEND Family Medicine
DX: K92.1 Melena (principal); K44.9 Diaphragmatic hernia without obstruction or gangrene; K21.9 Gastro-esophageal reflux disease without esophagitis; N18.2 Chronic kidney disease, stage 2 (mild); K57.30 Diverticulosis of large intestine without perforation or abscess without bleeding; N39.0 Urinary tract infection, site not specified; I12.9 Hypertensive chronic kidney disease with stage 1 through stage 4 chronic kidney disease, or unspecified chronic kidney disease
CPT/HCPCS: 36415; 74177; 80048 ×2; 80076; 82150; 83690; 83735; 85025 ×2; 87086; 87088; 99285; G0378 ×2; J0744 ×3; J1650 ×2; J2405; J7030 ×2; Q9967; 81003; 81015

== ENCOUNTER 2018-12-19 08:36 | Emergency (ER) | payer OTHER ==
[2018-12-19 09:19] LABS: Absolute Lymphocytes (CBC) 2.1 K/uL (0.7-4.9); Basophils % 1.2 % (0-1.3); Hematocrit 36.8 % (36.0-45.0); Lymphocytes % 25.5 % (15.3-44.8); MPV 10.4 fL (7.6-11.3); RBC Red Blood Cell Count 3.95 M/uL (3.86-4.86)
[2018-12-19 09:35] LABS: Albumin 3.7 g/dL (3.4-5.0); Bilirubin Direct 0.2 mg/dL (0-0.2); Bilirubin Total 0.7 mg/dL (0.2-1.0); Potassium 4.1 mmol/L (3.5-5.1); Protein, Total 6.8 g/dL (6.4-8.2)
--- NOTE | 2018-12-19 11:41 | ER ---
Nurse's Notes [facility] Name: Kevin Andujar Age: 83 yrs Sex: Female : 1935 Arrival Date: 12/19/2018 Time: 08:39 Bed 6 Private MD: Gold Florence Diagnosis: Rectal Bleeding Presentation: 12/19 08:56 Presenting complaint: Dark and bright red blood in stool today. Denies pain. On Cipro hb and Flagyl for diverticulitis. Transition of care: patient was not received from another setting of care. Onset of symptoms was December 19, 2018. Risk Assessment: Do you want to hurt yourself or someone else? Patient reports no desire to harm self or others. Initial Sepsis Screen: Does the patient meet any 2 criteria? No. Patient's initial sepsis screen is negative. Does the patient have a suspected source of infection? No. Patient's initial sepsis screen is negative. Care prior to arrival: None. 08:56 Method Of Arrival: Ambulatory hb 08:56 Acuity: NOE 3 hb Historical: - Allergies: 08:57 No Known Allergies; hb - Home Meds: 08:57 amlodipine 10 mg tab 1 tab once daily for Hypertension [Active]; tamsulosin 0.4 mg Oral hb cp24 1 cap once daily for Urolithiasis [Active]; valsartan 160 mg Oral tab 1 tab once daily for Hypertension [Active]; - PMHx: 08:57 Diverticulitis; hemorrhoids; Hypertension; Urolithiasis; hb - PSHx: 08:57 Hysterectomy; Tonsillectomy; Bladder suspension; ovarian cyst removed from R ovary; L hb arm leasion; - Immunization history:: Adult Immunizations up to date. - Social history:: Smoking status: Patient/guardian denies using tobacco. - Ebola Screening: : No symptoms or risks identified at this time. Screenin:30 Abuse screen: Denies threats or abuse. Denies injuries from another. Nutritional sv screening: No deficits noted. Tuberculosis screening: No symptoms or risk factors identified. Fall Risk None identified. Assessment: 09:30 General: Appears in no apparent distress. comfortable, well groomed, well developed, sv Behavior is calm, cooperative, appropriate for age. Pain: Denies pain. Neuro: Level of Consciousness is awake, alert, obeys commands, Oriented to person, place, time, situation, Moves all extremities. Full function Gait is steady. Respiratory: Airway is patent Respiratory effort is even, unlabored, Respiratory pattern is regular, symmetrical. GI: Reports rectal bleeding. Derm: Skin is pink, warm \T\ dry. 10:30 Reassessment: Patient appears in no apparent distress at this time. No changes from sv previously documented assessment. Patient and/or family updated on plan of care and expected duration. Pain level reassessed. Patient is alert, oriented x 3, equal unlabored respirations, skin warm/dry/pink. 12:43 Reassessment: Patient appears in no apparent distress at this time. No changes from sv previously documented assessment. Patient and/or family updated on plan of care and expected duration. Pain level reassessed. Patient is alert, oriented x 3, equal unlabored respirations, skin warm/dry/pink. Vital Signs: 08:57 BP 137 / 91; Pulse 97; Resp 16; Temp 97.9; Pulse Ox 95% on R/A; Weight 47.17 kg; Height hb 5 ft. 2 in. (157.48 cm); Pain 0/10; 10:25 BP 130 / 74; Pulse 73; Resp 17; Pulse Ox 97% on R/A; jb1 11:42 BP 125 / 86; Pulse 75; Resp 16; Pulse Ox 95% ; sv 12:40 BP 122 / 88; Pulse 77; Resp 16; Pulse Ox 99% ; sv 08:57 Body Mass Index 19.02 (47.17 kg, 157.48 cm) hb ED Course: 08:39 Patient arrived in ED. as 08:39 Gold Florence MD is Private Physician. as 08:50 Justin Khalil MD is Attending Physician. kdr 08:54 Roma Davila, GEETHA is Primary Nurse. hb 08:57 Triage completed. hb 08:57 Arm band placed on. hb 09:30 Patient has correct armband on for positive identification. Placed in gown. Bed in low sv position. Call light in reach. Pulse ox on. NIBP on. Door closed. Warm blanket given. Head of bed elevated. 09:35 Missed attempt(s): 20 gauge in right forearm. Bleeding controlled, band aid applied, sv catheter tip intact. 09:40 Inserted saline lock: 20 gauge in right forearm, using aseptic technique. Blood sv collected. Flushed right forearm with 5 ml normal saline. 10:50 ED physician to see patient. sv 11:36 Gold Florence MD is Referral Physician. kdr 11:57 Ivan Donohue MD is Referral Physician. kdr 12:43 No provider procedures requiring assistance completed. IV discontinued, intact, sv bleeding controlled, No redness/swelling at site. Pressure dressing applied. Administered Medications: No medications were administered Outcome: 11:37 Discharge ordered by MD. kdr 12:43 Discharged to home ambulatory, with family. sv 12:43 Condition: stable 12:43 Discharge instructions given to patient, Instructed on discharge instructions, follow up and referral plans. Demonstrated understanding of instructions, follow-up care. 13:06 Patient left the ED. hb Signatures: Sukumar Espinoza1 Roma Davila, RN RN sv Justin Khalil MD MD kdr Indy Birch as Ijeoma Novoa, RN RN hb
--- NOTE | 2018-12-19 11:42 | EDPHYS ---
Physician Documentation [facility] Name: Kevin Andujar Age: 83 yrs Sex: Female : 1935 Arrival Date: 12/19/2018 Time: 08:39 Bed 6 Private MD: Gold Florence ED Physician Justin Khalil HPI: 12/19 11:38 This 83 yrs old Female presents to ER via Ambulatory with complaints of kdr Rectal Bleeding. 11:38 The patient presents to the emergency department with bleeding from the rectum/anus, kdr that is mild. Onset: The symptoms/episode began/occurred at an unknown time. This has been an ongoing problem for some time - she has been seeing Dr. Arzate for treatment. They had asked her to see a GI doctor in [place] for further treatment. Context: the patient Polyp on a recent Colonoscopy . Modifying factors: The symptoms are alleviated by nothing, The symptoms are aggravated by nothing. Associate signs and symptoms: Pertinent positives: diarrhea, lower GI bleeding, in toilet bowl, Pertinent negatives: abdominal pain, constipation, dysuria, fever, vomiting. The patient has experienced similar episodes in the past, chronically. The patient has been recently seen by a physician: Dr. Donohue. Historical: - Allergies: 08:57 No Known Allergies; hb - Home Meds: 08:57 amlodipine 10 mg tab 1 tab once daily for Hypertension [Active]; tamsulosin 0.4 mg Oral hb cp24 1 cap once daily for Urolithiasis [Active]; valsartan 160 mg Oral tab 1 tab once daily for Hypertension [Active]; - PMHx: 08:57 Diverticulitis; hemorrhoids; Hypertension; Urolithiasis; hb - PSHx: 08:57 Hysterectomy; Tonsillectomy; Bladder suspension; ovarian cyst removed from R ovary; L hb arm leasion; - Immunization history:: Adult Immunizations up to date. - Social history:: Smoking status: Patient/guardian denies using tobacco. - Ebola Screening: : No symptoms or risks identified at this time. ROS: 11:38 Constitutional: Negative for fever, chills, and weight loss, Eyes: Negative for injury, kdr pain, redness, and discharge, ENT: Negative for injury, pain, and discharge, Neck: Negative for injury, pain, and swelling, Cardiovascular: Negative for chest pain, palpitations, and edema, Respiratory: Negative for shortness of breath, cough, wheezing, and pleuritic chest pain, Back: Negative for injury and pain, : Negative for injury, bleeding, discharge, and swelling, MS/Extremity: Negative for injury and deformity, Skin: Negative for injury, rash, and discoloration, Neuro: Negative for headache, weakness, numbness, tingling, and seizure activity. Psych: Negative for depression, anxiety, suicide ideation, homicidal ideation, and hallucinations, Allergy/Immunology: Negative for hives, rash, and allergies, Endocrine: Negative for neck swelling, polydipsia, polyuria, polyphagia, and marked weight changes, Hematologic/Lymphatic: Negative for swollen nodes, abnormal bleeding, and unusual bruising. 11:38 Abdomen/GI: Positive for diarrhea, rectal bleeding, Negative for nausea and vomiting, constipation, abdominal distension, anorexia, hematemesis, black/tarry stool, bowel incontinence. Exam: 11:38 Constitutional: This is a well developed, well nourished patient who is awake, alert, kdr and in no acute distress. Head/Face: Normocephalic, atraumatic. Eyes: Pupils equal round and reactive to light, extra-ocular motions intact. Lids and lashes normal. Conjunctiva and sclera are non-icteric and not injected. Cornea within normal limits. Periorbital areas with no swelling, redness, or edema. Neck: Trachea midline, no thyromegaly or masses palpated, and no cervical lymphadenopathy. Supple, full range of motion without nuchal rigidity, or vertebral point tenderness. No Meningismus. Chest/axilla: Normal chest wall appearance and motion. Nontender with no deformity. No lesions are appreciated. Cardiovascular: Regular rate and rhythm with a normal S1 and S2. No gallops, murmurs, or rubs. Normal PMI, no JVD. No pulse deficits. Respiratory: Lungs have equal breath sounds bilaterally, clear to auscultation and percussion. No rales, rhonchi or wheezes noted. No increased work of breathing, no retractions or nasal flaring. Back: No spinal tenderness. No costovertebral tenderness. Full range of motion. Skin: Warm, dry with normal turgor. Normal color with no rashes, no lesions, and no evidence of cellulitis. MS/ Extremity: Pulses equal, no cyanosis. Neurovascular intact. Full, normal range of motion. Neuro: Awake and alert, GCS 15, oriented to person, place, time, and situation. Cranial nerves II-XII grossly intact. Motor strength 5/5 in all extremities. Sensory grossly intact. Cerebellar exam normal. Normal gait. Psych: Awake, alert, with orientation to person, place and time. Behavior, mood, and affect are within normal limits. 11:38 Abdomen/GI: Inspection: abdomen appears normal, Bowel sounds: normal, Palpation: abdomen is soft and non-tender, soft, nontender. Vital Signs: 08:57 BP 137 / 91; Pulse 97; Resp 16; Temp 97.9; Pulse Ox 95% on R/A; Weight 47.17 kg; Height hb 5 ft. 2 in. (157.48 cm); Pain 0/10; 10:25 BP 130 / 74; Pulse 73; Resp 17; Pulse Ox 97% on R/A; jb1 11:42 BP 125 / 86; Pulse 75; Resp 16; Pulse Ox 95% ; sv 12:40 BP 122 / 88; Pulse 77; Resp 16; Pulse Ox 99% ; sv 08:57 Body Mass Index 19.02 (47.17 kg, 157.48 cm) hb MDM: 11:00 Data reviewed: vital signs, nurses notes. ED course: D/w Dr. Donohue [employer] - they will confer kdr about patient in office for plan of care.. 11:37 Patient medically screened. kdr 12/19 08:51 Order name: Basic Metabolic Panel; Complete Time: 10:56 kdr 12/19 08:51 Order name: CBC with Diff; Complete Time: 10:56 kdr 12/19 08:51 Order name: Creatinine for Radiology; Complete Time: 10:56 kdr 12/19 08:51 Order name: Hepatic Function; Complete Time: 10:56 kdr 12/19 08:51 Order name: Lipase; Complete Time: 10:56 kdr 12/19 08:51 Order name: Type And Screen; Complete Time: 10:56 kdr 12/19 08:51 Order name: IV Saline Lock; Complete Time: 10:18 kdr 12/19 08:51 Order name: Labs collected and sent; Complete Time: 10:18 kdr Administered Medications: No medications were administered Disposition: 12/19/18 11:37 Discharged to Home. Impression: Rectal Bleeding. - Condition is Stable. - Discharge Instructions: Diarrhea, Adult, [id number], Rectal Bleeding, [id number]. - Medication Reconciliation Form, Thank You Letter, Antibiotic Education, Prescription Opioid Use form. - Follow up: Gold Florence MD; When: 2 - 3 days; Reason: If symptoms return, Further diagnostic work-up, Recheck today's complaints, Continuance of care, Re-evaluation by your physician. Follow up: Ivan Donohue MD; When: 1 - 2 days; Reason: If symptoms return, Further diagnostic work-up, Recheck today's complaints, Continuance of care, Re-evaluation by your physician. - Problem is an ongoing problem. - Symptoms are unchanged. - Notes: Follow-up as soon as possible with Dr. Miles in [place] at [phone] Signatures: Dispatcher [employer] EDVT Justin Khalil MD MD kdr Ijeoma Novoa RN RN hb Corrections: (The following items were deleted from the chart) 11:58 11:37 12/19/2018 11:37 Discharged to Home. Impression: Rectal Bleeding. Condition is kdr Stable. Forms are Medication Reconciliation Form, Thank You Letter, Antibiotic Education, Prescription Opioid Use. Follow up: Gold Florence; When: 2 - 3 days; Reason: If symptoms return, Further diagnostic work-up, Recheck today's complaints, Continuance of care, Re-evaluation by your physician. Problem is an ongoing problem. Symptoms are unchanged. kdr 13:06 11:58 12/19/2018 11:37 Discharged to Home. Impression: Rectal Bleeding. Condition is hb Stable. Forms are Medication Reconciliation Form, Thank You Letter, Antibiotic Education, Prescription Opioid Use. Follow up: Gold Florence; When: 2 - 3 days; Reason: If symptoms return, Further diagnostic work-up, Recheck today's complaints, Continuance of care, Re-evaluation by your physician. Follow up: Ivan Donohue; When: 1 - 2 days; Reason: If symptoms return, Further diagnostic work-up, Recheck today's complaints, Continuance of care, Re-evaluation by your physician. Problem is an ongoing problem. Symptoms are unchanged. kdr
[2018-12-19 13:12] VITALS: TEMP 97.9
[2018-12-19 13:16] VITALS: BP 122/88; O2SAT 99
== END 2018-12-19 13:06 | disposition home or self-care (01) ==
LOC: ER 08:36
DX: K62.5 Hemorrhage of anus and rectum (principal); I10 Essential (primary) hypertension
CPT/HCPCS: 36415; 80048; 80076; 83690; 85025; 86850; 86900; 86901; 99284

== ENCOUNTER 2018-12-24 07:12 | Emergency (ER) | payer OTHER ==
[2018-12-24 07:57] LABS: Absolute Lymphocytes (CBC) 2.2 K/uL (0.7-4.9); Basophils % 1.2 % (0-1.3); Hematocrit 35.9 % (36.0-45.0); Lymphocytes % 33.5 % (15.3-44.8); MPV 10.6 fL (7.6-11.3); RBC Red Blood Cell Count 3.87 M/uL (3.86-4.86)
[2018-12-24 08:09] LABS: Albumin 3.6 g/dL (3.4-5.0); Bilirubin Direct 0.2 mg/dL (0-0.2); Bilirubin Total 0.7 mg/dL (0.2-1.0); Potassium 4.1 mmol/L (3.5-5.1); Protein, Total 6.4 g/dL (6.4-8.2)
--- NOTE | 2018-12-24 09:34 | EDPHYS ---
Physician Documentation [facility] Name: Kevin Andujar Age: 83 yrs Sex: Female : 1935 Arrival Date: 12/24/2018 Time: 07:15 Bed 6 Private MD: Gold Florence ED Physician Justin Khalil HPI: 12/24 07:40 This 83 yrs old Female presents to ER via Ambulatory with complaints of kdr Rectal Bleeding. 07:40 The patient presents to the emergency department with bleeding from the rectum/anus, kdr that is mild. Onset: The symptoms/episode began/occurred suddenly, this morning. Context: the patient has a known history of hemorrhoids, possible. Modifying factors: The symptoms are alleviated by nothing, The symptoms are aggravated by bowel movement. Associate signs and symptoms: The patient has no apparent associated signs or symptoms. The patient has experienced similar episodes in the past, a few times. The patient has been recently seen by a physician: The patient has been recently seen at the [facility] Emergency Department, last week, for similar complaints labs were performed. Historical: - Allergies: 07:34 No Known Allergies; iw - Home Meds: 07:34 amlodipine 10 mg tab 1 tab once daily for Hypertension [Active]; losartan 50 mg oral iw tab 1 tab once daily [Active]; Zofran (as hydrochloride) 4 mg Oral tab as needed [Active]; Cipro 500 mg Oral tab 1 tab every 12 hours [Active]; Flagyl 500 mg Oral tab 1 tab 3 times per day [Active]; - PMHx: 07:34 Diverticulitis; hemorrhoids; Hypertension; Urolithiasis; iw - PSHx: 07:34 Hysterectomy; Tonsillectomy; Bladder suspension; ovarian cyst removed from R ovary; L iw arm lesion removed; - Immunization history:: Adult Immunizations up to date. - Social history:: Smoking status: Patient/guardian denies using tobacco. - Ebola Screening: : Patient negative for fever greater than or equal to 101.5 degrees Fahrenheit, and additional compatible Ebola Virus Disease symptoms Patient denies exposure to infectious person Patient denies travel to an Ebola-affected area in the 21 days before illness onset No symptoms or risks identified at this time. ROS: 07:40 Constitutional: Negative for fever, chills, and weight loss, Eyes: Negative for injury, kdr pain, redness, and discharge, ENT: Negative for injury, pain, and discharge, Neck: Negative for injury, pain, and swelling, Cardiovascular: Negative for chest pain, palpitations, and edema, Respiratory: Negative for shortness of breath, cough, wheezing, and pleuritic chest pain, Back: Negative for injury and pain, : Negative for injury, bleeding, discharge, and swelling, MS/Extremity: Negative for injury and deformity, Skin: Negative for injury, rash, and discoloration, Neuro: Negative for headache, weakness, numbness, tingling, and seizure activity. Psych: Negative for depression, anxiety, suicide ideation, homicidal ideation, and hallucinations, Allergy/Immunology: Negative for hives, rash, and allergies, Endocrine: Negative for neck swelling, polydipsia, polyuria, polyphagia, and marked weight changes, Hematologic/Lymphatic: Negative for swollen nodes, abnormal bleeding, and unusual bruising. 07:40 Abdomen/GI: Positive for rectal pain, rectal bleeding. Exam: 07:40 Constitutional: This is a well developed, well nourished patient who is awake, alert, kdr and in no acute distress. Head/Face: Normocephalic, atraumatic. Eyes: Pupils equal round and reactive to light, extra-ocular motions intact. Lids and lashes normal. Conjunctiva and sclera are non-icteric and not injected. Cornea within normal limits. Periorbital areas with no swelling, redness, or edema. Neck: Trachea midline, no thyromegaly or masses palpated, and no cervical lymphadenopathy. Supple, full range of motion without nuchal rigidity, or vertebral point tenderness. No Meningismus. Chest/axilla: Normal chest wall appearance and motion. Nontender with no deformity. No lesions are appreciated. Cardiovascular: Regular rate and rhythm with a normal S1 and S2. No gallops, murmurs, or rubs. Normal PMI, no JVD. No pulse deficits. Respiratory: Lungs have equal breath sounds bilaterally, clear to auscultation and percussion. No rales, rhonchi or wheezes noted. No increased work of breathing, no retractions or nasal flaring. Back: No spinal tenderness. No costovertebral tenderness. Full range of motion. Skin: Warm, dry with normal turgor. Normal color with no rashes, no lesions, and no evidence of cellulitis. MS/ Extremity: Pulses equal, no cyanosis. Neurovascular intact. Full, normal range of motion. Neuro: Awake and alert, GCS 15, oriented to person, place, time, and situation. Cranial nerves II-XII grossly intact. Motor strength 5/5 in all extremities. Sensory grossly intact. Cerebellar exam normal. Normal gait. Psych: Awake, alert, with orientation to person, place and time. Behavior, mood, and affect are within normal limits. Vital Signs: 07:34 BP 148 / 91; Pulse 74; Resp 16 S; Temp 98.6(TE); Pulse Ox 98% on R/A; Pain 0/10; iw 08:19 BP 131 / 69; Pulse 70; Resp 16; Pulse Ox 96% ; sv 09:31 BP 142 / 84; Pulse 75; Resp 16; Pulse Ox 96% ; sv MDM: 09:33 Patient medically screened. kdr 14:16 Data reviewed: vital signs, nurses notes, lab test result(s), radiologic studies. kdr Counseling: I had a detailed discussion with the patient and/or guardian regarding: the historical points, exam findings, and any diagnostic results supporting the discharge/admit diagnosis, lab results, radiology results, the need for outpatient follow up. 12/24 07:29 Order name: Basic Metabolic Panel; Complete Time: 08:41 kdr 12/24 07:29 Order name: CBC with Diff; Complete Time: 08:41 kdr 12/24 07:29 Order name: Creatinine for Radiology; Complete Time: 08:41 kdr 12/24 07:29 Order name: Hepatic Function; Complete Time: 08:41 kdr 12/24 07:29 Order name: IV Saline Lock; Complete Time: 07:55 kdr 12/24 07:29 Order name: Labs collected and sent; Complete Time: 07:55 kdr Administered Medications: No medications were administered Disposition: 12/24/18 09:33 Discharged to Home. Impression: Hemorrhoids and perianal venous thrombosis, Rectal pain. - Condition is Stable. - Discharge Instructions: How to Take a Sitz Bath, Hemorrhoids, [id number]. - Prescriptions for Tucks - apply 1 patch by RECTAL route as directed As directed on the box; 1 box. Tramadol 50 mg Oral Tablet - take 1 tablet by ORAL route every 8 hours as needed; 12 tablet. - Medication Reconciliation Form, Thank You Letter form. - Follow up: Gold Florence MD; When: 2 - 3 days; Reason: If symptoms return, Further diagnostic work-up, Recheck today's complaints, Continuance of care, Re-evaluation by your physician. Follow up: Ivan Donohue MD; When: 2 - 3 days; Reason: If symptoms return, Further diagnostic work-up, Recheck today's complaints, Continuance of care, Re-evaluation by your physician. - Problem is new. - Symptoms have improved. - Notes: Keep your appointment this week with GI as scheduled Signatures: Dispatcher [employer] Roma Delgado RN RN sv Justin Khalil MD MD kdr Brandi Galvan RN RN iw Corrections: (The following items were deleted from the chart) 09:52 09:33 12/24/2018 09:33 Discharged to Home. Impression: Hemorrhoids and perianal venous sv thrombosis; Rectal pain. Condition is Stable. Forms are Medication Reconciliation Form, Thank You Letter, Antibiotic Education, Prescription Opioid Use. Follow up: Gold Florence; When: 2 - 3 days; Reason: If symptoms return, Further diagnostic work-up, Recheck today's complaints, Continuance of care, Re-evaluation by your physician. Follow up: Ivan Donohue; When: 2 - 3 days; Reason: If symptoms return, Further diagnostic work-up, Recheck today's complaints, Continuance of care, Re-evaluation by your physician. Problem is new. Symptoms have improved. kdr
--- NOTE | 2018-12-24 09:34 | ER ---
Nurse's Notes [facility] Name: Kevin Andujar Age: 83 yrs Sex: Female : 1935 Arrival Date: 12/24/2018 Time: 07:15 Bed 6 Private MD: Gold Florence Diagnosis: Hemorrhoids and perianal venous thrombosis;Rectal pain Presentation: 12/24 07:25 Presenting complaint: Patient states: has hx of diverticulitis and hemorrhoids, was iw seen in ER recently and started on antibiotics, this morning had an episode of diarrhea with bright red blood in it, denies abd pain. Initial Sepsis Screen: Does the patient meet any 2 criteria? No. Patient's initial sepsis screen is negative. Does the patient have a suspected source of infection? No. Patient's initial sepsis screen is negative. 07:25 Acuity: NOE 3 iw 07:26 Transition of care: patient was not received from another setting of care. Onset of sv symptoms. Risk Assessment: Do you want to hurt yourself or someone else? Patient reports no desire to harm self or others. Care prior to arrival: None. 07:26 Method Of Arrival: Ambulatory sv Historical: - Allergies: 07:34 No Known Allergies; iw - Home Meds: 07:34 amlodipine 10 mg tab 1 tab once daily for Hypertension [Active]; losartan 50 mg oral iw tab 1 tab once daily [Active]; Zofran (as hydrochloride) 4 mg Oral tab as needed [Active]; Cipro 500 mg Oral tab 1 tab every 12 hours [Active]; Flagyl 500 mg Oral tab 1 tab 3 times per day [Active]; - PMHx: 07:34 Diverticulitis; hemorrhoids; Hypertension; Urolithiasis; iw - PSHx: 07:34 Hysterectomy; Tonsillectomy; Bladder suspension; ovarian cyst removed from R ovary; L iw arm lesion removed; - Immunization history:: Adult Immunizations up to date. - Social history:: Smoking status: Patient/guardian denies using tobacco. - Ebola Screening: : Patient negative for fever greater than or equal to 101.5 degrees Fahrenheit, and additional compatible Ebola Virus Disease symptoms Patient denies exposure to infectious person Patient denies travel to an Ebola-affected area in the 21 days before illness onset No symptoms or risks identified at this time. Screenin:25 Abuse screen: Denies threats or abuse. Denies injuries from another. Nutritional sv screening: No deficits noted. Tuberculosis screening: No symptoms or risk factors identified. Fall Risk None identified. Assessment: 07:40 General: Appears in no apparent distress. comfortable, slender, Behavior is calm, sv cooperative, appropriate for age. Pain: Denies pain. Neuro: Level of Consciousness is awake, alert, obeys commands, Oriented to person, place, time, situation, Moves all extremities. Full function Gait is steady. Respiratory: Airway is patent Respiratory effort is even, unlabored, Respiratory pattern is regular, symmetrical. GI: Reports diarrhea, rectal bleeding, hemorrhoids. Derm: Skin is normal. 09:31 Reassessment: Patient appears in no apparent distress at this time. No changes from sv previously documented assessment. Patient and/or family updated on plan of care and expected duration. Pain level reassessed. Patient is alert, oriented x 3, equal unlabored respirations, skin warm/dry/pink. 09:52 Reassessment: Patient appears in no apparent distress at this time. No changes from sv previously documented assessment. Patient and/or family updated on plan of care and expected duration. Pain level reassessed. Patient is alert, oriented x 3, equal unlabored respirations, skin warm/dry/pink. Vital Signs: 07:34 BP 148 / 91; Pulse 74; Resp 16 S; Temp 98.6(TE); Pulse Ox 98% on R/A; Pain 0/10; iw 08:19 BP 131 / 69; Pulse 70; Resp 16; Pulse Ox 96% ; sv 09:31 BP 142 / 84; Pulse 75; Resp 16; Pulse Ox 96% ; sv ED Course: 07:15 Patient arrived in ED. as 07:16 Gold Florence MD is Private Physician. as 07:22 Roma Davila, GEETHA is Primary Nurse. sv 07:24 Sylvain Reynolds PA is PHCP. cp 07:24 Justin Khalil MD is Attending Physician. cp 07:24 Arm band placed on. sv 07:25 Patient has correct armband on for positive identification. Bed in low position. Call sv light in reach. Side rails up X2. Pulse ox on. NIBP on. Door closed. Head of bed elevated. 07:32 Triage completed. iw 07:40 Inserted saline lock: 20 gauge in left forearm, using aseptic technique. Blood sv collected. Flushed left forearm with 5 ml normal saline. 09:31 Served as a pharmacy operations coordinator during rectal exam. sv 09:32 Gold Florence MD is Referral Physician. kdr 09:32 Ivan Donohue MD is Referral Physician. kdr 09:52 IV discontinued, intact, bleeding controlled, No redness/swelling at site. Pressure sv dressing applied. Administered Medications: No medications were administered Outcome: 09:33 Discharge ordered by . kdr 09:52 Discharged to home ambulatory, with family. sv 09:52 Condition: stable 09:52 Discharge instructions given to patient, Instructed on discharge instructions, follow up and referral plans. medication usage, Demonstrated understanding of instructions, follow-up care, medications, Prescriptions given X 2. 09:52 Patient left the ED. sv Signatures: Roma Davila RN RN sv Rittger, Kevin, MD MD kdr Indy Birch Irene, RN RN iw Sylvain Reynolds PA PA cp
[2018-12-24 10:34] VITALS: TEMP 98.6
[2018-12-24 10:35] VITALS: O2SAT 96
[2018-12-24 10:36] VITALS: BP 142/84
== END 2018-12-24 09:52 | disposition home or self-care (01) ==
LOC: ER 07:12
DX: K64.5 Perianal venous thrombosis (principal); K64.9 Unspecified hemorrhoids; I10 Essential (primary) hypertension
CPT/HCPCS: 36415; 80048; 80076; 85025; 99284

== ENCOUNTER 2018-12-27 16:34 | Inpatient (IN) | payer OTHER ==
[2018-12-27] MEDS ORDERED: NA CHLORIDE 0.9% 1,000 ML ONE (16:57)
[2018-12-27] MEDS ORDERED: CIPROFLOXACIN 400mg IV 400 MG/200 ML BAG IV ONE (16:57)
[2018-12-27] MEDS ORDERED: METRONIDAZOLE 500mg IVPB 500 MG/100 ML BAG IV ONE (16:58)
[2018-12-27 17:17] LABS: Absolute Lymphocytes (CBC) 2.7 K/uL (0.7-4.9); Basophils % 1.1 % (0-1.3); Hematocrit 37.9 % (36.0-45.0); Lymphocytes % 33.9 % (15.3-44.8); MPV 10.9 fL (7.6-11.3); RBC Red Blood Cell Count 4.01 M/uL (3.86-4.86)
[2018-12-27 17:34] LABS: ALT/SGPT 17 U/L (12-78); AST/SGOT 16 U/L (15-37); Albumin 3.7 g/dL (3.4-5.0); Alkaline Phosphatase 92 U/L (45-117); BUN Blood Urea Nitrogen 41 mg/dL (7-18); Bicarbonate 26 mmol/L (21-32); Bilirubin Direct 0.1 mg/dL (0-0.2); Bilirubin Total 0.4 mg/dL (0.2-1.0); Glucose Level 101 mg/dL (74-106); Lipase 426 U/L (73-393); Magnesium 2.2 mg/dL (1.8-2.4); NT PRO-BNP 269 pg/mL (<450); Potassium 4.4 mmol/L (3.5-5.1); Protein, Total 6.9 g/dL (6.4-8.2); Sodium Level 141 mmol/L (136-145); Troponin (Emerg Dept Use Only) < 0.02 ng/mL (0.0-0.045)
[2018-12-27 17:37] LABS: Protime INR 0.88
[2018-12-27] MEDS ORDERED: ONDANSETRON 4 MG/2 ML VIAL ONE (18:13)
[2018-12-27] MEDS ORDERED: MORPHINE 2 MG/ML SYR ONE ×2 (18:13→20:28)
--- NOTE | 2018-12-27 18:15 | RAD REPORT ---
EXAM DESCRIPTION: CT - Abdomen Pelvis W Contrast - 12/27/2018 6:00 pm CLINICAL HISTORY: Abdominal pain COMPARISON: 2017 and 2015 TECHNIQUE: Computed axial tomography of the abdomen pelvis was obtained. 100 cc Isovue-300 was admin istered intravenously. Oral contrast was not requested which limits evaluation of bowel. All CT scans are performed using dose optimization technique as appropriate and may include automated exposure control or mA/KV adjustment according to patient size. FINDINGS: Large hiatal hernia The liver, spleen, pancreas, and adrenals appear unremarkable. Simple and complex renal cysts without significant change There is no evidence of diverticulitis. Left inguinal hernia contains nondilated small bowel Moderate amount stool within the colon IMPRESSION: Left inguinal hernia contains nondilated small bowel Large hiatal hernia
--- NOTE | 2018-12-27 18:34 | RAD REPORT ---
EXAM DESCRIPTION: Fer Single View12/27/2018 5:08 pm CLINICAL HISTORY: abd pain COMPARISON: none FINDINGS: Large hiatal hernia Lungs are hyperaerated The lungs appear clear of acute infiltrate. The heart is mildly enlarged IMPRESSION: No acute abnormalities displayed
--- NOTE | 2018-12-27 18:37 | ER ---
Nurse's Notes [facility] Name: Kevin Andujar Age: 83 yrs Sex: Female : 1935 Arrival Date: 12/27/2018 Time: 16:38 Bed 24 Private MD: Diagnosis: Abdominal tenderness;Gastrointestinal hemorrhage, unspecified-lower;Unspecified kidney failure-insufficency Presentation: 12/27 16:40 Presenting complaint: Patient states: "I was seen here the other day and I was aa5 diagnosed with hemorrhoids and I've been doing the tucks and the sitz bath and I even followed-up at the GI center yesterday and they told me to continue the sitz bath and tucks but today I started passing clots". Pt reports she has a colonoscopy scheduled. Transition of care: patient was not received from another setting of care. Onset of symptoms was November 2018. Risk Assessment: Do you want to hurt yourself or someone else? Patient reports no desire to harm self or others. Initial Sepsis Screen: Does the patient meet any 2 criteria? No. Patient's initial sepsis screen is negative. Does the patient have a suspected source of infection? No. Patient's initial sepsis screen is negative. Care prior to arrival: None. 16:40 Acuity: NOE 3 aa5 16:40 Method Of Arrival: Ambulatory aa5 Historical: - Allergies: 16:42 No Known Allergies; aa5 - Home Meds: 17:20 amlodipine 10 mg tab 1 tab once daily for Hypertension [Active]; Cipro 500 mg Oral tab mg2 1 tab every 12 hours [Active]; losartan 50 mg Oral tab 1 tab once daily [Active]; Flagyl 500 mg Oral tab 1 tab 3 times per day [Active]; tamsulosin 0.4 mg Oral cp24 1 cap once daily for Urolithiasis [Active]; Zofran (as hydrochloride) 4 mg Oral tab as needed [Active]; valsartan 160 mg Oral tab 1 tab once daily for Hypertension [Active]; - PMHx: 16:42 Diverticulitis; hemorrhoids; Hypertension; Urolithiasis; aa5 - PSHx: 16:42 Hysterectomy; Tonsillectomy; Bladder suspension; ovarian cyst removed from R ovary; L aa5 arm lesion removed; - Immunization history:: Flu vaccine is up to date. - Social history:: Smoking status: Patient/guardian denies using tobacco. - Ebola Screening: : No symptoms or risks identified at this time. - Family history:: not pertinent. Screenin:19 Abuse screen: Denies threats or abuse. Denies injuries from another. Nutritional mg2 screening: No deficits noted. Tuberculosis screening: No symptoms or risk factors identified. Fall Risk IV access (20 points). Assessment: 17:17 General: Appears in no apparent distress. comfortable, Behavior is calm, cooperative. mg2 Pain: Complains of pain in anal area. Neuro: Level of Consciousness is awake, alert, obeys commands, Oriented to person, place, time, situation. Cardiovascular: Capillary refill < 3 seconds Patient's skin is warm and dry. Respiratory: Airway is patent Respiratory effort is even, unlabored, Respiratory pattern is regular, symmetrical. GI: Reports rectal bleeding. : No signs and/or symptoms were reported regarding the genitourinary system. EENT: No deficits noted. Derm: Skin is intact, is healthy with good turgor, Skin is pink, warm \\T\\ dry. normal. Musculoskeletal: Circulation, motion, and sensation intact. Capillary refill < 3 seconds. 18:17 Reassessment: patient came back from ct scan. pain addressed. mg2 20:31 Reassessment: Morphine given for pain at this time. Reassessment: Patient and/or family ad1 updated on plan of care and expected duration. Pain level reassessed. Pain: Complains of pain in to bottom and legs and knees from arthritis. Vital Signs: 16:42 BP 156 / 91; Pulse 95; Resp 16 S; Temp 98.8(O); Pulse Ox 96% on R/A; aa5 18:18 BP 143 / 69; Pulse 94; Resp 18; Pulse Ox 96% on R/A; mg2 20:30 BP 152 / 75; Pulse 72; Resp 21; Pulse Ox 95% ; ad1 ED Course: 16:38 Patient arrived in ED. mr 16:40 Arm band placed on. aa5 16:41 Triage completed. aa5 16:50 Sylvain Mattson MD is Attending Physician. stevenson 17:00 Inserted saline lock: 20 gauge in right antecubital area, using aseptic technique. jp3 Blood collected. Patient maintains SpO2 saturation greater than 95% on room air. 17:00 Initial lab(s) drawn, by me, sent to lab. EKG done, by ED staff, reviewed by Sylvain Mattson MD T\\T\\S collected, blood band applied to patient. 17:06 Boom Patterson RN is Primary Nurse. mg2 17:07 XRAY Chest (1 view) In Process Unspecified. EDMS 17:18 Placed in gown. Bed in low position. Call light in reach. Side rails up X 1. Side rails jp3 up X2. Warm blanket given. Pillow given. Verbal reassurance given. hospital monitor on. Pulse ox on. NIBP on. 17:47 Assisted to bathroom. tr5 18:00 CT completed. Patient tolerated procedure well. Patient moved back from CT. mw3 18:02 CT Abd/Pelvis - PO and IV Contrast In Process Unspecified. EDMS 18:32 Rehan Green MD is Hospitalizing Provider. stevenson 21:35 No provider procedures requiring assistance completed. Patient admitted, IV remains in tr5 place. Administered Medications: 17:16 Drug: Flagyl 500 mg Volume: 100 ml; Route: IVPB; Rate: 200 ml/hr; Infused Over: 30 mg2 mins; Site: right antecubital; 17:17 Drug: NS 0.9% 500 ml Route: IV; Rate: bolus; Site: right antecubital; mg2 17:47 Drug: NS 0.9% 1000 ml Route: IV; Rate: 125 ml/hr; Site: right antecubital; tr5 21:36 Follow up: IV Status: Infusion continued upon admission tr5 17:47 Drug: Cipro 400 mg Volume: 200 ml; Route: IVPB; Infused Over: 60 mins; Site: right tr5 antecubital; 18:17 Drug: morphine 2 mg Route: IVP; Site: right antecubital; mg2 18:17 Drug: Zofran 4 mg Route: IVP; Site: right antecubital; mg2 20:30 Drug: morphine 2 mg Route: IVP; Site: right antecubital; ad1 Outcome: 18:36 Decision to Hospitalize by Provider. stevenson 20:42 Admitted to Med/surg accompanied by tech, family with patient, via wheelchair, room ad1 202, Report called to GEETHA Ashford 20:42 Condition: good 20:42 Instructed on the need for admit, Demonstrated understanding of instructions. 21:36 Patient left the ED. tr5 Signatures: Dispatcher [employer] EDSylvain East MD MD cha Rivera, Rosey mr Bundy, Teresa, RN RN aa5 Poornima Aviles RN RN ad1 Boom Patterson RN RN mg2 Lisa Orozco 3 Nick Hernandez 3 Sagar Garcia RN RN tr5
--- NOTE | 2018-12-27 18:38 | EDPHYS ---
Physician Documentation [facility] Name: Kevin Andujar Age: 83 yrs Sex: Female : 1935 Arrival Date: 12/27/2018 Time: 16:38 Bed 24 Private MD: ED Physician Sylvain Mattson HPI: 12/27 17:34 This 83 yrs old Female presents to ER via Ambulatory with complaints of stevenson Rectal Bleeding. 17:34 The patient presents to the emergency department with bleeding from the rectum/anus, stevenson that is mild. Onset: The symptoms/episode began/occurred 2 day(s) ago. Context: the patient has a known history of hemorrhoids. Modifying factors: The symptoms are alleviated by nothing, The symptoms are aggravated by nothing. Associate signs and symptoms: The patient has no apparent associated signs or symptoms. The patient has experienced similar episodes in the past, several times. Historical: - Allergies: 16:42 No Known Allergies; aa5 - Home Meds: 17:20 amlodipine 10 mg tab 1 tab once daily for Hypertension [Active]; Cipro 500 mg Oral tab mg2 1 tab every 12 hours [Active]; losartan 50 mg Oral tab 1 tab once daily [Active]; Flagyl 500 mg Oral tab 1 tab 3 times per day [Active]; tamsulosin 0.4 mg Oral cp24 1 cap once daily for Urolithiasis [Active]; Zofran (as hydrochloride) 4 mg Oral tab as needed [Active]; valsartan 160 mg Oral tab 1 tab once daily for Hypertension [Active]; - PMHx: 16:42 Diverticulitis; hemorrhoids; Hypertension; Urolithiasis; aa5 - PSHx: 16:42 Hysterectomy; Tonsillectomy; Bladder suspension; ovarian cyst removed from R ovary; L aa5 arm lesion removed; - Immunization history:: Flu vaccine is up to date. - Social history:: Smoking status: Patient/guardian denies using tobacco. - Ebola Screening: : No symptoms or risks identified at this time. - Family history:: not pertinent. ROS: 17:34 Constitutional: Negative for fever, chills, and weight loss, Eyes: Negative for injury, stevenson pain, redness, and discharge, ENT: Negative for injury, pain, and discharge, Neck: Negative for injury, pain, and swelling, Cardiovascular: Negative for chest pain, palpitations, and edema, Respiratory: Negative for shortness of breath, cough, wheezing, and pleuritic chest pain, Back: Negative for injury and pain, : Negative for injury, bleeding, discharge, and swelling, MS/Extremity: Negative for injury and deformity, Skin: Negative for injury, rash, and discoloration, Neuro: Negative for headache, weakness, numbness, tingling, and seizure, Psych: Negative for depression, anxiety, suicide ideation, homicidal ideation, and hallucinations, Allergy/Immunology: Negative for hives, rash, and allergies, Endocrine: Negative for neck swelling, polydipsia, polyuria, polyphagia, and marked weight changes, Hematologic/Lymphatic: Negative for swollen nodes, abnormal bleeding, and unusual bruising. 17:34 Abdomen/GI: Positive for abdominal pain, rectal bleeding. Exam: 17:34 Constitutional: This is a well developed, well nourished patient who is awake, alert, stevenson and in no acute distress. Head/Face: Normocephalic, atraumatic. Eyes: Pupils equal round and reactive to light, extra-ocular motions intact. Lids and lashes normal. Conjunctiva and sclera are non-icteric and not injected. Cornea within normal limits. Periorbital areas with no swelling, redness, or edema. ENT: Nares patent. No nasal discharge, no septal abnormalities noted. Tympanic membranes are normal and external auditory canals are clear. Oropharynx with no redness, swelling, or masses, exudates, or evidence of obstruction, uvula midline. Mucous membranes moist. Neck: Trachea midline, no thyromegaly or masses palpated, and no cervical lymphadenopathy. Supple, full range of motion without nuchal rigidity, or vertebral point tenderness. No Meningismus. Chest/axilla: Normal chest wall appearance and motion. Nontender with no deformity. No lesions are appreciated. Cardiovascular: Regular rate and rhythm with a normal S1 and S2. No gallops, murmurs, or rubs. Normal PMI, no JVD. No pulse deficits. Respiratory: Lungs have equal breath sounds bilaterally, clear to auscultation and percussion. No rales, rhonchi or wheezes noted. No increased work of breathing, no retractions or nasal flaring. Back: No spinal tenderness. No costovertebral tenderness. Full range of motion. Female : Normal external genitalia. Skin: Warm, dry with normal turgor. Normal color with no rashes, no lesions, and no evidence of cellulitis. MS/ Extremity: Pulses equal, no cyanosis. Neurovascular intact. Full, normal range of motion. Neuro: Awake and alert, GCS 15, oriented to person, place, time, and situation. Cranial nerves II-XII grossly intact. Motor strength 5/5 in all extremities. Sensory grossly intact. Cerebellar exam normal. Normal gait. Psych: Awake, alert, with orientation to person, place and time. Behavior, mood, and affect are within normal limits. 17:34 Abdomen/GI: Inspection: abdomen appears normal, Bowel sounds: normal, Palpation: mild abdominal tenderness, in the left upper quadrant and left lower quadrant. Vital Signs: 16:42 BP 156 / 91; Pulse 95; Resp 16 S; Temp 98.8(O); Pulse Ox 96% on R/A; aa5 18:18 BP 143 / 69; Pulse 94; Resp 18; Pulse Ox 96% on R/A; mg2 20:30 BP 152 / 75; Pulse 72; Resp 21; Pulse Ox 95% ; ad1 MDM: 16:50 Patient medically screened. [facility] 17:34 Data reviewed: vital signs, nurses notes, lab test result(s), EKG, radiologic studies, [facility] CT scan, plain films. 12/27 16:46 Order name: Basic Metabolic Panel; Complete Time: 17:49 [facility] 12/27 16:46 Order name: CBC with Diff; Complete Time: 17:49 [facility] 12/27 16:46 Order name: LFT's; Complete Time: 17:49 [facility] 12/27 16:46 Order name: Magnesium; Complete Time: 17:49 [facility] 12/27 16:46 Order name: NT PRO-BNP; Complete Time: 17:49 [facility] 12/27 16:46 Order name: PT-INR; Complete Time: 18:30 [facility] 12/27 16:46 Order name: Troponin (emerg Dept Use Only); Complete Time: 17:49 [facility] 12/27 16:46 Order name: Lipase; Complete Time: 17:49 [facility] 12/27 16:46 Order name: Urine Culture [facility] 12/27 16:46 Order name: Type And Screen; Complete Time: 18:30 [facility] 12/27 19:45 Order name: Basic Metabolic Panel EDMT 12/27 19:45 Order name: Basic Metabolic Panel EDMS 12/27 19:45 Order name: CBC with Automated Diff EDMS 12/27 19:45 Order name: CBC with Automated Diff EDMT 12/27 16:46 Order name: XRAY Chest (1 view); Complete Time: 19:22 [facility] 12/27 16:46 Order name: CT Abd/Pelvis - PO and IV Contrast; Complete Time: 18:30 [facility] 12/27 19:45 Order name: Hematocrit EDMS 12/27 19:45 Order name: Hematocrit EDMS 12/27 19:45 Order name: Hematocrit EDMS 12/27 19:45 Order name: Hemoglobin EDMS 12/27 19:45 Order name: Hemoglobin EDMT 12/27 19:45 Order name: Hemoglobin EDMT 12/27 19:45 Order name: Protime (+INR) EDMT 12/27 19:45 Order name: Protime (+INR) EDMT 12/27 19:45 Order name: PTT, Activated Partial Thromb EDMT 12/27 19:45 Order name: PTT, Activated Partial Thromb EDMT 12/27 20:06 Order name: Urine Dipstick--[facility]) [facility] 12/27 16:46 Order name: EKG; Complete Time: 16:48 [facility] 12/27 16:46 Order name: Cardiac monitoring; Complete Time: 17:17 [facility] 12/27 16:46 Order name: EKG - Nurse/Tech; Complete Time: 17:17 [facility] 12/27 16:46 Order name: IV Saline Lock; Complete Time: 17:17 [facility] 12/27 16:46 Order name: Labs collected and sent; Complete Time: 17:17 [facility] 12/27 16:46 Order name: O2 Per Protocol; Complete Time: 17:17 [facility] 12/27 16:46 Order name: O2 Sat Monitoring; Complete Time: 17:17 [facility] 12/27 19:44 Order name: CONS Pharmacy Consult [facility] 12/27 19:44 Order name: CONS Physician Consult [facility] 12/27 19:44 Order name: NPO [facility] 12/27 19:44 Order name: EKG Electrocardiogram [facility] 12/27 19:44 Order name: EKG Electrocardiogram [facility] 12/27 19:44 Order name: EKG Electrocardiogram [facility] 12/27 19:45 Order name: EKG Electrocardiogram [facility] 12/27 19:45 Order name: EKG Electrocardiogram EDMT 12/27 19:45 Order name: EKG Electrocardiogram EDMS 12/27 19:45 Order name: EKG Electrocardiogram EDMS 12/27 19:45 Order name: EKG Electrocardiogram EDMS 12/27 19:45 Order name: EKG Electrocardiogram EDMS 12/27 19:45 Order name: EKG Electrocardiogram EDMS 12/27 19:45 Order name: EKG Electrocardiogram EDMS Administered Medications: 17:16 Drug: Flagyl 500 mg Volume: 100 ml; Route: IVPB; Rate: 200 ml/hr; Infused Over: 30 mg2 mins; Site: right antecubital; 17:17 Drug: NS 0.9% 500 ml Route: IV; Rate: bolus; Site: right antecubital; mg2 17:47 Drug: NS 0.9% 1000 ml Route: IV; Rate: 125 ml/hr; Site: right antecubital; tr5 21:36 Follow up: IV Status: Infusion continued upon admission tr5 17:47 Drug: Cipro 400 mg Volume: 200 ml; Route: IVPB; Infused Over: 60 mins; Site: right tr5 antecubital; 18:17 Drug: morphine 2 mg Route: IVP; Site: right antecubital; mg2 18:17 Drug: Zofran 4 mg Route: IVP; Site: right antecubital; mg2 20:30 Drug: morphine 2 mg Route: IVP; Site: right antecubital; ad1 Disposition: 12/27/18 18:36 Hospitalization ordered by Rehan Green for Inpatient Admission. Preliminary diagnosis are Abdominal tenderness, Gastrointestinal hemorrhage, unspecified - lower, Unspecified kidney failure - insufficency. - Bed requested for Telemetry/MedSurg (Inpatient). - Status is Inpatient Admission. tr5 - Condition is Stable. - Problem is new. - Symptoms have improved. UTI on Admission? No Signatures: Dispatcher [employer] EDMT Sylvain Mattson MD MD cha Calderon, Audri RN RN aa5 Poornima Aviles RN RN ad1 Enmanuel Souza mw2 Boom Patterson RN RN mg2 Sagar Garcia RN RN tr5 Corrections: (The following items were deleted from the chart) 19:59 18:36 Hospitalization Ordered by Rehan Green MD for Inpatient Admission. Preliminary mw2 diagnosis is Abdominal tenderness; Gastrointestinal hemorrhage, unspecified - lower; Unspecified kidney failure - insufficency. Bed requested for Telemetry/MedSurg (Inpatient). Status is Inpatient Admission. Condition is Stable. Problem is new. Symptoms have improved. UTI on Admission? No. stevenson 21:36 19:59 12/27/2018 18:36 Hospitalization Ordered by Rehan Green MD for Inpatient tr5 Admission. Preliminary diagnosis is Abdominal tenderness; Gastrointestinal hemorrhage, unspecified - lower; Unspecified kidney failure - insufficency. Bed requested for Telemetry/MedSurg (Inpatient). Status is Inpatient Admission. Condition is Stable. Problem is new. Symptoms have improved. UTI on Admission? No. mw2
[2018-12-27] MEDS ORDERED: ACETAMINOPHEN 500 MG TAB PO PRN (19:37)
[2018-12-27] MEDS ORDERED: SODIUM CHLORIDE 0.9% 10ML INJ IV PRN (19:37)
[2018-12-27] MEDS ORDERED: NA CHLORIDE 0.9% 250 ML IV SCH (20:00)
[2018-12-27 20:13] LABS: Urine Glucose NEGATIVE (NEG)
[2018-12-27 20:14] LABS: Urine Blood 2+ (NEG); Urine Protein 1+ (NEG)
[2018-12-27] MEDS: NA CHLORIDE 0.9% 1,000 ML IV SCH (21:54)
[2018-12-27 21:55] VITALS: BMI 18.8
[2018-12-27] MEDS: PANTOPRAZOLE 40 MG INJ IVP SCH (21:55)
[2018-12-28 01:16] LABS: Hematocrit 31.3 % (36.0-45.0)
[2018-12-28] MEDS ORDERED: INFLUENZA VACCINE (for 3y+) 0.5 ML DOSE IMVAC ONE (06:00)
[2018-12-28 06:03] LABS: Absolute Lymphocytes (CBC) 1.2 K/uL (0.7-4.9); Basophils % 0.9 % (0-1.3); Hematocrit 31.9 % (36.0-45.0); Lymphocytes % 21.7 % (15.3-44.8); MPV 10.2 fL (7.6-11.3); RBC Red Blood Cell Count 3.41 M/uL (3.86-4.86)
[2018-12-28] MEDS: NA CHLORIDE 0.9% 1,000 ML IV SCH (06:07)
[2018-12-28 06:15] LABS: Protime INR 0.96
[2018-12-28 06:19] LABS: Potassium 4.6 mmol/L (3.5-5.1)
[2018-12-28] MEDS: MORPHINE 2 MG/ML SYR IV PRN (07:53)
--- NOTE | 2018-12-28 08:17 | P.HP ---
Certification for Inpatient Patient admitted to: Inpatient With expected LOS: >2 Midnights Patient will require the following post-hospital care: None Practitioner: I am a practitioner with admitting privileges, knowledge of patient current condition, hospital course, and medical plan of care. Services: Services provided to patient in accordance with Admission requirements found in Title 42 Section 412.3 of the Code of Federal Regulations Patient History Date of Service: 12/27/18 Reason for admission: Lower GI bleeding History of Present Illness: Patient is an 83-year-old female who comes into the hospital with lower GI bleeding. This been going on for the last week and half. She followed up at that GI center. She was started on antibiotics. She was also advised to take Sitz baths. This helped her hemorrhoidal bleeding. However, this afternoon she started noticing bright red blood again. She decided to come into the emergency room for further evaluation. This is her 2nd or 3rd visit in the emergency room. She has continued to have some bleeding. Spoke to GI and they plan on doing a colonoscopy on Saturday morning. They want her admitted for further observation and treatment of the lower GI bleeding. Allergies No Known Drug Allergies Allergy (Verified 12/27/18 22:01) Unknown No Know Allergy (Uncoded 11/30/16 03:08) Unknown No Known Allergi Allergy (Uncoded 11/04/17 13:47) Unknown Home Medications: Amlodipine [Norvasc*] 1 tab PO DAILY 12/27/18 Losartan Potassium 1 tab PO DAILY 12/27/18 - Past Medical/Surgical History Has patient received pneumonia vaccine in the past: Yes Diabetic: No -: Diverticulosis, history diverticulitis -: HTN -: History of bladder retention, status post bladder suspension -: Frequent UTI -: GERD with hiatal hernia -: Hemorrhoids -: Chronic renal disease -: Bladder suspension -: Hysterectomy -: Removal of cyst to the right ovary -: Removal of cyst to the left wrist -: Tonsillectomy Psychosocial/ Personal History: Patient is a . She lives by herself. She has 2 children. - Family History Mother Medical History: Lung disease, GI disease Notes: diverticulosis Father Notes: of nephritis at age of 45 - Social History Smoking Status: Never smoker Alcohol use: No CD- Drugs: No Caffeine use: Yes Place of Residence: Home Review of Systems 10-point ROS is otherwise unremarkable Physical Examination - Vital Signs Temperature: 97.5 F Blood Pressure: 129/71 Pulse: 74 Respirations: 18 Pulse Ox (%): 97 - Physical Exam General: Alert, In no apparent distress, Oriented x3 HEENT: Atraumatic, PERRLA, Mucous membr. moist/pink, EOMI, Sclerae nonicteric Neck: Supple, 2+ carotid pulse no bruit, No LAD, Without JVD or thyroid abnormality Respiratory: Clear to auscultation bilaterally, Normal air movement Cardiovascular: Regular rate/rhythm, Normal S1 S2, No murmurs Gastrointestinal: Normal bowel sounds, Soft and benign, Non-distended, No tenderness Musculoskeletal: No clubbing, No swelling, No tenderness Integumentary: No rashes Neurological: Normal gait, Normal speech, Normal strength at 5/5 x4 extr, Normal tone, Sensation intact, Cranial nerves 3-12 intact, Normal affect Lymphatics: No axilla or inguinal lymphadenopathy - Studies Laboratory Data (last 24 hrs) 12/27/18 17:00: PT 10.4, INR 0.88 12/27/18 17:00: WBC 8.1 D, Hgb 12.7, Hct 37.9, Plt Count 250 12/27/18 17:00: Sodium 141, Potassium 4.4, BUN 41 H, Creatinine 1.33 H, Glucose 101, Magnesium 2.2, Total Bilirubin 0.4, AST 16, ALT 17, Alkaline Phosphatase 92 , Lipase 426 H Assessment & Plan - Problems (Diagnosis) (1) Lower GI bleeding Current Visit: Yes Status: Acute (2) Bleeding hemorrhoid Current Visit: Yes Status: Acute (3) Diverticulosis Onset Date: 11/30/16 Current Visit: No Status: Chronic (4) HTN (hypertension) Onset Date: 11/30/16 Current Visit: No Status: Chronic Qualifiers: (5) Diverticulitis Onset Date: 11/05/17 Current Visit: No Status: Suspected - Plan 1. Continue with IV hydration and IV Protonix 2. Continue with IV antibiotics 3. Continue with pain control 4. NPO 5. GI consultation; possible colonoscopy in a.m.; prep per GI 6. Serial H&H, and we will monitor CBC, BMP, LFTs and lipase along with electrolytes. 7. GI and DVT prophylaxis Discharge Plan: Home Plan to discharge in: Greater than 2 days - Advance Directives Does patient have a Living Will: Yes Does patient have a Durable POA for Healthcare: Yes - Code Status/Comfort Care Code Status Assessed: Yes Code Status: Full Code Critical Care: No Time Spent Managing PTS Care (In Minutes): 45
[2018-12-28] MEDS: PANTOPRAZOLE 40 MG INJ IVP SCH ×2 (08:22→20:15)
[2018-12-28] MEDS: NACHLORIDE 0.45% 1,000 ML IV SCH ×2 (08:33→22:29)
--- NOTE | 2018-12-28 09:04 | EKG ---
Test Date: 2018-12-27 Test Time: 17:12:36 Table Hand: OTIS MEASUREMENT RESULTS: Intervals: Rate: 95 KS: 188 QRSD: 74 QT: 332 QTc: 417 [place]: P: 61 KS: 188 QRS: 70 T: 67 INTERPRETIVE STATEMENTS: Normal sinus rhythm Normal ECG Compared to ECG 03/04/2016 23:01:16 Sinus arrhythmia no longer present Electronically Signed On 12-28-18 09:03:27 CDT by Papito Mensah
--- NOTE | 2018-12-28 12:56 | P.PN ---
Subjective Date of Service: 12/28/18 Chief Complaint: Lower GI bleeding Subjective: No new changes Patient seen and examined at bedside. No family at bedside. Chart reviewed and case discussed with nursing staff. Denies any further bleeding in the stool at this time. Continues to complain of not feeling well Review of Systems 10-point ROS is otherwise unremarkable Physical Examination - Vital Signs Temperature: 97.5 F Blood Pressure: 129/71 Pulse: 74 Respirations: 18 Pulse Ox (%): 97 - Physical Exam General: Alert, In no apparent distress, Oriented x3 HEENT: Atraumatic, PERRLA, EOMI Neck: Supple, JVD not distended Respiratory: Clear to auscultation bilaterally, Normal air movement Cardiovascular: Regular rate/rhythm, Normal S1 S2 Gastrointestinal: Normal bowel sounds, No tenderness Musculoskeletal: No tenderness Integumentary: No rashes Neurological: Normal speech, Normal tone, Normal affect Lymphatics: No axilla or inguinal lymphadenopathy - Studies Laboratory Data (last 24 hrs) 12/27/18 17:00: PT 10.4, INR 0.88 12/27/18 17:00: WBC 8.1 D, Hgb 12.7, Hct 37.9, Plt Count 250 12/27/18 17:00: Sodium 141, Potassium 4.4, BUN 41 H, Creatinine 1.33 H, Glucose 101, Magnesium 2.2, Total Bilirubin 0.4, AST 16, ALT 17, Alkaline Phosphatase 92 , Lipase 426 H Assessment And Plan - Plan 1. Continue with IV hydration and IV Protonix 2. Continue with IV antibiotics 3. Continue with pain control 4. NPO 5. GI consultation; possible colonoscopy in a.m.; prep per GI 6. Serial H&H, and we will monitor CBC, BMP, LFTs and lipase along with electrolytes. 7. GI and DVT prophylaxis
[2018-12-28] MEDS ORDERED: GOLYTELY 4000 ML PO SCH (15:00)
[2018-12-28] MEDS: ONDANSETRON 4 MG/2 ML VIAL IV PRN (20:15)
[2018-12-29] MEDS ORDERED: GOLYTELY 4000 ML PO SCH (07:24)
[2018-12-29] MEDS ORDERED: FLEET ENEMA ADULT PR ONE (07:25)
[2018-12-29] MEDS: PANTOPRAZOLE 40 MG INJ IVP SCH ×2 (09:00→20:54)
[2018-12-29] MEDS: MORPHINE 2 MG/ML SYR IV PRN (09:57)
[2018-12-29] MEDS: ONDANSETRON 4 MG/2 ML VIAL IV PRN (10:01)
--- NOTE | 2018-12-29 11:08 | P.PN ---
Subjective Date of Service: 12/29/18 Chief Complaint: Lower GI bleeding Subjective: No new changes Patient seen and examined at bedside. No family at bedside. Chart reviewed and case discussed with nursing staff. Denies any further bleeding in the stool at this time. Continues to complain of not feeling well, working on colon prep Review of Systems 10-point ROS is otherwise unremarkable Physical Examination - Vital Signs Temperature: 98.1 F Blood Pressure: 144/76 Pulse: 70 Respirations: 18 Pulse Ox (%): 94 - Physical Exam General: Alert, In no apparent distress, Oriented x3 HEENT: Atraumatic, PERRLA, EOMI Neck: Supple, JVD not distended Respiratory: Clear to auscultation bilaterally, Normal air movement Cardiovascular: Regular rate/rhythm, Normal S1 S2 Gastrointestinal: Normal bowel sounds, No tenderness Musculoskeletal: No tenderness Integumentary: No rashes Neurological: Normal speech, Normal tone, Normal affect Lymphatics: No axilla or inguinal lymphadenopathy Assessment And Plan - Plan 1. Continue with IV hydration and IV Protonix 2. Continue with IV antibiotics 3. Continue with pain control 4. NPO 5. GI consultation; colonoscopy pending today. 6. Serial H&H, and we will monitor CBC, BMP, LFTs and lipase along with electrolytes. 7. GI and DVT prophylaxis
[2018-12-29] MEDS: NACHLORIDE 0.45% 1,000 ML IV SCH (11:40)
[2018-12-29 12:13] LABS: Absolute Lymphocytes (CBC) 0.9 K/uL (0.7-4.9); Basophils % 0.9 % (0-1.3); Lymphocytes % 15.8 % (15.3-44.8); MPV 10.6 fL (7.6-11.3); RBC Red Blood Cell Count 3.76 M/uL (3.86-4.86)
[2018-12-29 12:20] LABS: Potassium 4.5 mmol/L (3.5-5.1)
[2018-12-30] MEDS: NACHLORIDE 0.45% 1,000 ML IV SCH ×3 (00:01→16:03)
[2018-12-30] MEDS ORDERED: FLEET ENEMA ADULT PR ONE (03:00)
[2018-12-30 05:47] LABS: Basophils % 0.9 % (0-1.3); Hematocrit 31.9 % (36.0-45.0); Lymphocytes % 16.1 % (15.3-44.8)
[2018-12-30 06:36] LABS: Potassium 4.2 mmol/L (3.5-5.1)
[2018-12-30] MEDS ORDERED: D5 0.9 NS 1,000 ML IV ONE (07:34)
[2018-12-30] MEDS ORDERED: LIDOCAINE 1% MPF 30 ML VIAL ONE (07:52)
[2018-12-30] MEDS ORDERED: PROPOFOL 200 MG/20 ML VIAL IV ONE ×2 (07:52→08:50)
[2018-12-30] MEDS ORDERED: EPINEPHRINE/PF 1 MG/ML AMP ONE (07:58)
[2018-12-30] MEDS ORDERED: NA CHLORIDE 0.9% 1,000 ML ONE (08:06)
[2018-12-30] MEDS ORDERED: GLYCOPYRROLATE 0.2 MG/ML SYR ONE (08:36)
[2018-12-30] MEDS ORDERED: ONDANSETRON 4 MG/2 ML VIAL ONE (09:24)
[2018-12-30] MEDS: MORPHINE 2 MG/ML SYR IV PRN (10:19)
[2018-12-30] MEDS: PANTOPRAZOLE 40 MG INJ IVP SCH ×2 (10:19→21:36)
[2018-12-30] MEDS ORDERED: SIMETHICONE 80 MG TAB PO PRN (13:29)
--- NOTE | 2018-12-30 13:34 | P.PN ---
Subjective Date of Service: 12/30/18 Chief Complaint: Lower GI bleeding Patient seen and examined at bedside. No family at bedside. Chart reviewed and case discussed with nursing staff. Denies any further bleeding in the stool at this time. s/p colonoscopy; complaining of abdominal pain and gas. Review of Systems 10-point ROS is otherwise unremarkable Physical Examination - Vital Signs Temperature: 98.6 F Blood Pressure: 135/69 Pulse: 97 Respirations: 18 Pulse Ox (%): 91 - Physical Exam General: Alert, In no apparent distress, Oriented x3 HEENT: Atraumatic, PERRLA, EOMI Neck: Supple, JVD not distended Respiratory: Clear to auscultation bilaterally, Normal air movement Cardiovascular: Regular rate/rhythm, Normal S1 S2 Gastrointestinal: Normal bowel sounds, Tenderness Musculoskeletal: No tenderness Integumentary: No rashes Neurological: Normal speech, Normal tone, Normal affect Lymphatics: No axilla or inguinal lymphadenopathy - Studies Microbiology Data (last 24 hrs): 12/27/18 19:55 Clean Catch Urine [place] Count - Final <10,000 CFU/ML. 12/27/18 19:55 Clean Catch Urine - Final MIXED JAY. Assessment And Plan - Plan 1. Continue with IV hydration and IV Protonix 2. Continue with IV antibiotics 3. Continue with pain control 4. Full liquid diet. 5. GI consultation; s/p colonoscopy - colonoscopy with a large sigmoid mass. Discussed case with Dr. Walter and Dr. Shelton - patient will FU with Dr. Walter for biopsy results and then she may need general surgery follow up as an outpatient. 6. Serial H&H, and we will monitor CBC, BMP, LFTs and lipase along with electrolytes. 7. GI and DVT prophylaxis Disposition: Pending symptomatic improvement; anticipate discharge home tomorrow.
--- NOTE | 2018-12-30 18:58 | OP ---
Surgeon: Bogdan Walter MD Procedure To Be Performed: Colonoscopy. Performing Physician: Bogdan Walter MD Indication For Procedure: Persistent rectal bleeding. Plan For Anesthesia: Monitored anesthesia care. Complexity: Average. Technique: After obtaining informed consent from the patient, explaining risks and complications, wh ich include but are not limited to bleeding, infection, perforation, and anesthesia complication. Pa tient was placed in the left lateral position. Sedation was given. From then on, digital rectal exa m was performed. Subsequently, scope inserted into the rectum and carefully advanced up till the cec um. The cecum was identified by the appendiceal orifice and ileocecal valve. Scope was gradually wi thdrawn while trying to examine the mucosa. The exam was limited due to poor prep in the whole colon . Also, there was significant redundancy. Scope withdrawal time was 8 minutes. Findings: Digital rectal exam revealed medium-sized external hemorrhoids. Extensive diverticulosis seen from the sigmoid to the transverse colon. Numerous large mouth diverticula were visualized as w ell as numerous medium and large diverticula were visualized. The visualization in most of the colon was not good. However, in the distal sigmoid colon, an area of tattoo was seen immediately adjacent to it masslike lesion versus polyp was seen. It is unclear if this is malignant or a very large joie yp due to the acute angulation in that region, however, I was not able to find a definitive base. Al so, it seemed to involve part of a diverticulum. First, we did attempt to see if this could be resec renee; however, due to the tortuosity and deformity and diverticulosis, was not able to have a good vie w. I do a partial resection with snare at least to get a tissue diagnosis. Also, I proceeded to tat too the lesion both proximal and distal area so that we have a pretty clear marking. Retroflexion re vealed grade 2 internal hemorrhoids. Complications: None. Tolerance To Anesthesia: Excellent. Postoperative Diagnosis: Sigmoid mass versus very large polyp, unable to be resected due to proximit y to diverticula and tortuosity. Plan: 1.Await pathology results. 2.Would consult Surgery for them to give input in regard to this. US/JHONATHANL Voice ID: [id number] Report ID: [id number]
[2018-12-31] MEDS: NACHLORIDE 0.45% 1,000 ML IV SCH ×2 (03:40→06:42)
[2018-12-31 05:55] LABS: Absolute Lymphocytes (CBC) 1.3 K/uL (0.7-4.9); Basophils % 0.9 % (0-1.3); Lymphocytes % 13.8 % (15.3-44.8); MPV 10.4 fL (7.6-11.3); RBC Red Blood Cell Count 3.26 M/uL (3.86-4.86)
[2018-12-31 06:19] LABS: Potassium 3.8 mmol/L (3.5-5.1)
[2018-12-31] MEDS: PANTOPRAZOLE 40 MG INJ IVP SCH (08:56)
[2018-12-31 10:24] VITALS: O2SAT 93
[2018-12-31 12:50] VITALS: BP 183/84; TEMP 98.7
--- NOTE | 2019-01-09 14:17 | P.DS ---
Admission Date: 12/27/18 Discharge Date: 12/31/18 Disposition: ROUTINE DISCHARGE Discharge Condition: GOOD Reason for Admission: Lower GI bleeding Consultations: Dr. Walter Procedures: Colonoscopy Brief History of Present Illness: Patient is an 83-year-old female who comes into the hospital with lower GI bleeding. This been going on for the last week and half. She followed up at that GI center. She was started on antibiotics. She was also advised to take Sitz baths. This helped her hemorrhoidal bleeding. However, this afternoon she started noticing bright red blood again. She decided to come into the emergency room for further evaluation. This is her 2nd or 3rd visit in the emergency room. She has continued to have some bleeding. Spoke to GI and they plan on doing a colonoscopy on Saturday morning. They want her admitted for further observation and treatment of the lower GI bleeding. Hospital Course: Patient was admitted for observation of her GI bleed. GI was consulted. Patient underwent a colonoscopy. colonoscopy with a large sigmoid mass. Discussed case with Dr. Walter and Dr. Shelton - patient will FU with Dr. Walter for biopsy results and then she may need general surgery follow up as an outpatient. She otherwise did well throughout the stay. She was tolerating a PO diet prior to discharge and she was hemodynamically stable. Her symptoms had resolved. Her diagnosis and treatment plan was explained to her, all questions were answered. She verbalized understanding She was cleared for discharge by GI. She was then discharged in a safe and stable manner. She will follow up with GI for further interventions/management. She may also require general surgery. Information for Dr. Shelton provided to patient. Vital Signs/Physical Exam: Temp Pulse Resp BP Pulse Ox 98.7 F 81 16 183/84 H 93 12/31/18 12:00 12/31/18 12:00 12/31/18 12:00 12/31/18 12:00 12/31/18 12:00 General: Alert, In no apparent distress, Oriented x3 HEENT: Atraumatic, PERRLA, EOMI Neck: Supple, JVD not distended Respiratory: Clear to auscultation bilaterally, Normal air movement Cardiovascular: Regular rate/rhythm, Normal S1 S2 Gastrointestinal: Normal bowel sounds, No tenderness Musculoskeletal: No tenderness Integumentary: No rashes Neurological: Normal speech, Normal tone, Normal affect Lymphatics: No axilla or inguinal lymphadenopathy Laboratory Data at Discharge: WBC 9.5 K/uL (4.3-10.9) D 12/31/18 05:31 Hgb 10.4 g/dL (12.0-15.0) L 12/31/18 05:31 Hct 30.0 % (36.0-45.0) L 12/31/18 05:31 Plt Count 196 K/uL (152-406) 12/31/18 05:31 PT 11.3 SECONDS (9.5-12.5) 12/28/18 05:54 INR 0.96 12/28/18 05:54 APTT 27.5 SECONDS (24.3-36.9) 12/28/18 05:54 Sodium 140 mmol/L (136-145) 12/31/18 05:31 Potassium 3.8 mmol/L (3.5-5.1) 12/31/18 05:31 BUN 13 mg/dL (7-18) 12/31/18 05:31 Creatinine 0.99 mg/dL (0.55-1.3) 12/31/18 05:31 Glucose 85 mg/dL (74-106) 12/31/18 05:31 Magnesium 2.2 mg/dL (1.8-2.4) 12/27/18 17:00 Total Bilirubin 0.4 mg/dL (0.2-1.0) 12/27/18 17:00 AST 16 U/L (15-37) 12/27/18 17:00 ALT 17 U/L (12-78) 12/27/18 17:00 Alkaline Phosphatase 92 U/L (45-117) 12/27/18 17:00 Lipase 426 U/L (73-393) H 12/27/18 17:00 Home Medications: Amlodipine [Norvasc*] 1 tab PO DAILY 12/27/18 Losartan Potassium 1 tab PO DAILY 12/27/18 Pantoprazole [Protonix Tab] 40 mg PO DAILY #30 tab 12/31/18 New Medications: Pantoprazole [Protonix Tab] 40 mg PO DAILY #30 tab Patient Discharge Instructions: Please call and schedule an appointment to follow up with Dr. Walter in 2-3 days. Please follow up with your primary care physician in 1 week. Return to the ER for worsening symptoms. Diet: as tolerated Activity: Ad luli Followup: Gold Florence MD [Primary Care Provider] - Bogdan Walter MD [ACTIVE - CAN ADMIT] - Time spent managing pt's care (in minutes): 55
== END 2018-12-31 13:05 | disposition home or self-care (01) | DRG 395 ==
LOC: ER 16:34 → 2ND 20:47
PROVIDERS: ADMIT Hospitalist; ATTEND Hospitalist
PROC: 0DBN8ZX Excision of Sigmoid Colon, Via Natural or Artificial Opening Endoscopic, Diagnostic (ICD-10-PCS; principal; 2018-12-30 08:00)
DX: K63.89 Other specified diseases of intestine (principal); I10 Essential (primary) hypertension; K57.30 Diverticulosis of large intestine without perforation or abscess without bleeding; K64.8 Other hemorrhoids
CPT/HCPCS: 36415; 71045; 74177; 80048; 80076; 81003; 82962; 83690; 83735; 83880; 84484; 85014; 85018; 85025; 85610; 85730; 86850; 86900; 86901; 87086; 87088; 88305; 90471; 93005; 96361; 96374; 96375; 99285; C9113; J0171; J0744; J2270; J2405; J2704; J7030; Q2035; Q9967

== ENCOUNTER 2019-04-11 16:09 | Emergency (ER) | payer OTHER ==
--- OUTSIDE RECORDS SUMMARY | 2019-04-11 16:12 | XMS REPORT ---
:1935 [facility] Address [address] [place] [address] Care Team Providers Name Role Phone ASHWINI ELI Unavailable Unavailable Problems This patient has no known problems. Allergies, Adverse Reactions, Alerts This patient has no known allergies or adverse reactions. Medications This patient has no known medications. Results Test Description Test Time Test Comments Text Results Atomic Results Result Comments CBC W/PLT COUNT & AUTO DIFFERENTIAL 2019-03-30 14:26:00 Test Item Value Reference Range Comments WHITE BLOOD CELL COUNT (BEAKER) (test qjuq=129) 9.0 K/ L 3.5-10.5 RED BLOOD CELL COUNT (BEAKER) (test ifip=631) 4.23 M/ L 3.93-5.22 HEMOGLOBIN (BEAKER) (test tisy=860) 13.3 GM/DL 11.2-15.7 HEMATOCRIT (BEAKER) (test aamy=970) 40.1 % 34.1-44.9 MEAN CORPUSCULAR VOLUME (BEAKER) (test auup=493) 94.8 fL 79.4-94.8 MEAN CORPUSCULAR HEMOGLOBIN (BEAKER) (test jajd=982) 31.4 pg 25.6-32.2 MEAN CORPUSCULAR HEMOGLOBIN CONC (BEAKER) (test iuoc=243) 33.2 GM/DL 32.2- 35.5 RED CELL DISTRIBUTION WIDTH (BEAKER) (test jhnv=894) 12.3 % 11.7-14.4 PLATELET COUNT (BEAKER) (test qsrv=513) 294 K/CU MM 150-450 MEAN PLATELET VOLUME (BEAKER) (test fsix=737) 11.4 fL 9.4-12.3 NUCLEATED RED BLOOD CELLS (BEAKER) (test ignl=456) 0 /100 WBC 0-0 NEUTROPHILS RELATIVE PERCENT (BEAKER) (test uifn=157) 72 % LYMPHOCYTES RELATIVE PERCENT (BEAKER) (test nntm=079) 19 % MONOCYTES RELATIVE PERCENT (BEAKER) (test fvkq=773) 7 % EOSINOPHILS RELATIVE PERCENT (BEAKER) (test yozg=912) 1 % BASOPHILS RELATIVE PERCENT (BEAKER) (test ycht=322) 1 % NEUTROPHILS ABSOLUTE COUNT (BEAKER) (test wmvu=841) 6.53 K/ L 1.56-6.13 LYMPHOCYTES ABSOLUTE COUNT (BEAKER) (test qxtw=955) 1.70 K/ L 1.18-3.74 MONOCYTES ABSOLUTE COUNT (BEAKER) (test winr=840) 0.65 K/ L 0.24-0.36 EOSINOPHILS ABSOLUTE COUNT (BEAKER) (test wcxg=462) 0.05 K/ L 0.04-0.36 BASOPHILS ABSOLUTE COUNT (BEAKER) (test qwez=923) 0.05 K/ L 0.01-0.08 IMMATURE GRANULOCYTES-RELATIVE PERCENT (BEAKER) (test 0 % 0-1 arnd=1717) HEPATIC FUNCTION [id number] 11:28:00 Test Item Value Reference Range Comments TOTAL PROTEIN (BEAKER) (test hwja=305) 7.0 gm/dL 6.0-8.3 ALBUMIN (BEAKER) (test aaqe=4810) 4.1 g/dL 3.5-5.0 BILIRUBIN TOTAL (BEAKER) (test osod=641) 0.7 mg/dL 0.2-1.2 BILIRUBIN DIRECT (BEAKER) (test jbig=164) 0.2 mg/dL 0.1-0.5 ALKALINE PHOSPHATASE (BEAKER) (test bofs=877) 86 U/L 40-150 AST (SGOT) (BEAKER) (test ibmv=443) 21 U/L 5-34 ALT (SGPT) (BEAKER) (test hdsq=816) 13 U/L 6-55 [id number] 11:28:00 Test Item Value Reference Range Comments LIPASE (BEAKER) (test ywfw=452) 153 U/L 8-78 BASIC METABOLIC [id number] 11:27:00 Test Item Value Reference Range Comments SODIUM (BEAKER) (test 142 meq/L 136-145 kxzx=131) POTASSIUM (BEAKER) (test 4.6 meq/L 3.5-5.1 bntk=920) CHLORIDE (BEAKER) (test 104 meq/L 98-107 jlzn=360) CO2 (BEAKER) (test 28 meq/L 22-29 waxz=822) BLOOD UREA NITROGEN 27 mg/dL 7-21 (BEAKER) (test hjhz=315) CREATININE (BEAKER) 1.10 mg/dL 0.57-1.25 (test ykce=462) GLUCOSE RANDOM (BEAKER) 109 mg/dL 70-105 (test jxky=219) CALCIUM (BEAKER) (test 10.1 mg/dL 8.4-10.2 vhoq=148) EGFR (BEAKER) (test 47 mL/min/1.73 sq m INSUFFICIENT CLINICAL DATA jced=3111) TO CALCULATE ESTIMATED GFR. PT/[id number] 11:19:00 Test Item Value Reference Range Comments PROTIME (BEAKER) (test clbl=181) 12.4 seconds 11.9-14.2 INR (BEAKER) (test iiku=971) 1.0 <=5.9 PARTIAL THROMBOPLASTIN TIME (BEAKER) (test 27.3 seconds 22.5-36.0 fycd=357) Effective 08/27/2018: PT Reference Range ChangeNew: 11.9-14.2 Previous: 11.7- 14.7RECOMMENDED COUMADIN/WARFARIN INR THERAPY RANGESSTANDARD DOSE: 2.0-3.0 Includes: PROPHYLAXIS for venous thrombosis, systemic embolization; TREATMENT for venous thrombosis and/or pulmonary embolus.HIGH RISK: Target INR is2.5-3.5 for patients wiht mechanical heart valves.RAD, ABDOMEN SERIES W/ UPRIGHT PA [id number] 10:43:00Reason for exam:->ABDOMINAL PAINReason for exam:-> RECTAL BLEEDINGFINAL REPORT RAD, ABDOMEN SERIES W/ UPRIGHT PA CHEST CLINICAL INDICATION: ABDOMINAL PAINRECTAL BLEEDING COMPARISON: None FINDINGS: An upright view the chest and upright and supine views of the abdomen. Frontal view of the chest reveals no free subdiaphragmatic air. There is no focal consolidation. The costophrenic sulci are clear. Mediastinal contours are unremarkable. There is no bowel dilation. Moderate colonic stool burden is present. There is no visible pneumatosis. Advanced scoliotic deformity noted in the lumbar spine. IMPRESSION: Nonobstructed bowel gas pattern. Unremarkable frontal view of the chest. Signed: JR Maxim, Harsha Vincent Verified Date/Time: 03/30/2019 10:43:48 Reading Location: [facility] Radiology Reading Room
[2019-04-11 17:14] LABS: Absolute Lymphocytes (CBC) 1.8 K/uL (0.7-4.9); Basophils % 1.5 % (0-1.3); Hematocrit 37.7 % (36.0-45.0); MPV 10.4 fL (7.6-11.3); RBC Red Blood Cell Count 4.03 M/uL (3.86-4.86)
[2019-04-11 17:29] LABS: Protime INR 0.87
[2019-04-11 17:42] LABS: ALT/SGPT 30 U/L (12-78); AST/SGOT 23 U/L (15-37); Albumin 3.7 g/dL (3.4-5.0); Alkaline Phosphatase 82 U/L (45-117); BUN Blood Urea Nitrogen 39 mg/dL (7-18); Bicarbonate 26 mmol/L (21-32); Bilirubin Direct < 0.1 mg/dL (0-0.2); Bilirubin Total 0.5 mg/dL (0.2-1.0); Glucose Level 94 mg/dL (74-106); Potassium 4.5 mmol/L (3.5-5.1); Protein, Total 6.9 g/dL (6.4-8.2); Sodium Level 144 mmol/L (136-145)
--- NOTE | 2019-04-11 18:06 | EDPHYS ---
Physician Documentation [facility] Name: Kevin Andujar Age: 83 yrs Sex: Female : 1935 Arrival Date: 04/11/2019 Time: 16:11 Bed 14 Private MD: Gold Florence ED Physician Geoff [address] HPI: 04/11 16:58 This 83 yrs old Female presents to ER via Ambulatory with complaints of GI rn Bleeding. 16:58 The patient presents to the emergency department with rectal bleeding, a small amount, rn on toilet paper. Onset: The symptoms/episode began/occurred 1 week(s) ago. Abdominal pain: none is appreciated. Modifying factors: The symptoms are alleviated by nothing. Severity of symptoms: At their worst the symptoms were very mild in the emergency department the symptoms are unchanged. The patient has experienced similar episodes in the past. The patient has been recently seen by a physician:. Reports seen last week for mild rectal bleeding at [facility], told hemorrhoidal bleeding but given abx because of her diverticulitis hx, still taking abx, requests that bloodwork be drawn to compare because still having rectal bleed only when wiping, small amount. No abd pain.. Historical: - Allergies: 16:21 No Known Drug Allergies; sv - PMHx: 16:21 Diverticulitis; hemorrhoids; Hypertension; Urolithiasis; sv - PSHx: 16:21 Hysterectomy; Tonsillectomy; Bladder suspension; ovarian cyst removed from R ovary; L sv arm lesion removed; - Immunization history:: Flu vaccine status is unknown. - Social history:: Smoking status: unknown. - Ebola Screening: : No symptoms or risks identified at this time. - Family history:: not pertinent. - Hospitalizations: : No recent hospitalization is reported. ROS: 16:58 Constitutional: Negative for fever, chills, and weight loss, Cardiovascular: Negative rn for chest pain, palpitations, and edema, Respiratory: Negative for shortness of breath, cough, wheezing, and pleuritic chest pain, Abdomen/GI: Negative for abdominal pain, nausea, vomiting, diarrhea, and constipation, Back: Negative for injury and pain, MS/Extremity: Negative for injury and deformity, Skin: Negative for injury, rash, and discoloration, Neuro: Negative for headache, weakness, numbness, tingling, and seizure. Exam: 16:58 Constitutional: This is a well developed, well nourished patient who is awake, alert, rn and in no acute distress. Head/Face: Normocephalic, atraumatic. ENT: MMM Cardiovascular: Tachycardic, regular Respiratory: No increased work of breathing, no retractions or nasal flaring. Abdomen/GI: soft, non-tender Skin: Warm, dry with normal turgor. Normal color with no rashes, no lesions, and no evidence of cellulitis. MS/ Extremity: Pulses equal, no cyanosis. Neurovascular intact. Full, normal range of motion. Equal circumference. Neuro: Awake and alert, GCS 15, oriented to person, place, time, and situation. Cranial nerves II-XII grossly intact. Motor strength 5/5 in all extremities. Sensory grossly intact. Cerebellar exam normal. Vital Signs: 16:21 BP 137 / 83; Pulse 107; Resp 16; Temp 98.5(TE); Pulse Ox 95% ; Weight 47.17 kg; Height sv 5 ft. 2 in. (157.48 cm); 19:06 BP 125 / 78; Pulse 89; Resp 18; Temp 98; Pulse Ox 100% on R/A; mg2 16:21 Body Mass Index 19.02 (47.17 kg, 157.48 cm) sv MDM: 16:29 Patient medically screened. rn 18:02 Differential diagnosis: diverticulitis, hemorrhoids. Data reviewed: vital signs, nurses rn notes, lab test result(s), and as a result, I will discharge patient. Counseling: I had a detailed discussion with the patient and/or guardian regarding: the historical points, exam findings, and any diagnostic results supporting the discharge/admit diagnosis, lab results, the need for outpatient follow up, to return to the emergency department if symptoms worsen or persist or if there are any questions or concerns that arise at home. Special discussion: I discussed with the patient/guardian in detail that at this point there is no indication for admission to the hospital. It is understood, however, that if the symptoms persist or worsen the patient needs to return immediately for re-evaluation. ED course: Normal hemoglobin, bleeding most likely from external hemorrhoids, recommend still take abx and pcp f/u.. 04/11 16:39 Order name: CBC with Diff rn 04/11 16:39 Order name: Basic Metabolic Panel; Complete Time: 17:45 rn 04/11 16:39 Order name: Protime (+inr); Complete Time: 17:45 rn 04/11 16:39 Order name: Ptt, Activated; Complete Time: 17:45 rn 04/11 16:39 Order name: LFT's; Complete Time: 17:45 rn 04/11 16:40 Order name: CBC with Automated Diff; Complete Time: 17:45 EDWA 04/11 16:39 Order name: IV Start; Complete Time: 16:56 rn Administered Medications: 18:14 Drug: NS 0.9% 500 ml Route: IV; Rate: bolus; Site: left antecubital; mg2 19:05 Follow up: Response: No adverse reaction; IV Status: Completed infusion; IV Intake: mg2 500ml Disposition: 04/11/19 18:06 Discharged to Home. Impression: Bleeding hemorrhoids. - Condition is Stable. - Discharge Instructions: Hemorrhoids. - Medication Reconciliation Form, Thank You Letter, Antibiotic Education, Prescription Opioid Use form. - Follow up: Private Physician; When: As needed; Reason: Recheck today's complaints, Re-evaluation by your physician. - Problem is new. - Symptoms have improved. Signatures: Dispatcher [employer] EDRoma Rosales RN RN sv Nieto, Roman, MD MD rn Gardose, Michele, RN RN mg2 Corrections: (The following items were deleted from the chart) 19:07 18:06 04/11/2019 18:06 Discharged to Home. Impression: Bleeding hemorrhoids. Condition mg2 is Stable. Forms are Medication Reconciliation Form, Thank You Letter, Antibiotic Education, Prescription Opioid Use. Follow up: Private Physician; When: As needed; Reason: Recheck today's complaints, Re-evaluation by your physician. Problem is new. Symptoms have improved. rn
--- NOTE | 2019-04-11 18:06 | ER ---
Nurse's Notes [facility] Name: Kevin Andujar Age: 83 yrs Sex: Female : 1935 Arrival Date: 04/11/2019 Time: 16:11 Bed 14 Private MD: Gold Florence Diagnosis: Bleeding hemorrhoids Presentation: 04/11 16:18 Presenting complaint: Patient states: reports that she was at [facility] for rectal sv bleeding and discharged, states she is still having "some" rectal bleeding and her stools are partly white as well, bleeding is noted on her wipe only when she has a BM. c/o LLQ pain, dizziness. Has been on antibiotics as well since then. Transition of care: patient was not received from another setting of care. Onset of symptoms was April 2019. Care prior to arrival: None. 16:18 Method Of Arrival: Ambulatory sv 16:18 Acuity: NOE 3 sv 16:22 Initial Sepsis Screen: Does the patient meet any 2 criteria? HR > 90 bpm. No. Patient's sv initial sepsis screen is negative. Does the patient have a suspected source of infection? No. Patient's initial sepsis screen is negative. 16:58 Risk Assessment: Do you want to hurt yourself or someone else? Patient reports no mg2 desire to harm self or others. Historical: - Allergies: 16:21 No Known Drug Allergies; sv - PMHx: 16:21 Diverticulitis; hemorrhoids; Hypertension; Urolithiasis; sv - PSHx: 16:21 Hysterectomy; Tonsillectomy; Bladder suspension; ovarian cyst removed from R ovary; L sv arm lesion removed; - Immunization history:: Flu vaccine status is unknown. - Social history:: Smoking status: unknown. - Ebola Screening: : No symptoms or risks identified at this time. - Family history:: not pertinent. - Hospitalizations: : No recent hospitalization is reported. Screenin:41 Abuse screen: Denies threats or abuse. Denies injuries from another. Nutritional mg2 screening: No deficits noted. Tuberculosis screening: No symptoms or risk factors identified. Fall Risk IV access (20 points). Assessment: 16:41 General: Appears in no apparent distress. comfortable, Behavior is calm, cooperative. mg2 Pain: Denies pain. Neuro: Level of Consciousness is awake, alert, obeys commands, Oriented to person, place, time, situation. Cardiovascular: Capillary refill < 3 seconds Patient's skin is warm and dry. Respiratory: Airway is patent Respiratory effort is even, unlabored, Respiratory pattern is regular, symmetrical. GI: Reports rectal bleeding. : No signs and/or symptoms were reported regarding the genitourinary system. EENT: No signs and/or symptoms were reported regarding the EENT system. Derm: Skin is intact, is healthy with good turgor, Skin is pink, warm \\T\\ dry. normal. Musculoskeletal: Circulation, motion, and sensation intact. Capillary refill < 3 seconds. Vital Signs: 16:21 BP 137 / 83; Pulse 107; Resp 16; Temp 98.5(TE); Pulse Ox 95% ; Weight 47.17 kg; Height sv 5 ft. 2 in. (157.48 cm); 19:06 BP 125 / 78; Pulse 89; Resp 18; Temp 98; Pulse Ox 100% on R/A; mg2 16:21 Body Mass Index 19.02 (47.17 kg, 157.48 cm) sv ED Course: 16:11 Patient arrived in ED. ag5 16:11 Gold Florence MD is Private Physician. ag5 16:20 Triage completed. sv 16:21 Arm band placed on. sv 16:29 Geoff Aguilar MD is Attending Physician. rn 16:33 Boom Patterson, GEETHA is Primary Nurse. mg2 16:42 Patient has correct armband on for positive identification. mg2 16:57 No provider procedures requiring assistance completed. Inserted saline lock: 20 gauge [facility] Blood collected. by Ayad Callahan. 17:02 Initial lab(s) drawn, by wa, sent to lab. Inserted saline lock: 22 gauge in left 5 antecubital area, using aseptic technique. Blood collected. 17:03 CBC with Automated Diff Sent. [facility] 17:03 LFT's Sent. [facility] 17:03 Protime (+inr) Sent. [facility] 17:03 Ptt, Activated Sent. [facility] 17:03 Basic Metabolic Panel Sent. [facility] 17:03 CBC with Diff Sent. [facility] 19:06 IV discontinued, intact, bleeding controlled, No redness/swelling at site. Pressure mg2 dressing applied. Administered Medications: 18:14 Drug: NS 0.9% 500 ml Route: IV; Rate: bolus; Site: left antecubital; mg2 19:05 Follow up: Response: No adverse reaction; IV Status: Completed infusion; IV Intake: mg2 500ml Intake: 19:05 IV: 500ml; Total: 500ml. mg2 Outcome: 18:06 Discharge ordered by . rn 19:06 Discharged to home ambulatory. mg2 19:06 Condition: stable 19:06 Discharge instructions given to patient, Instructed on discharge instructions, follow up and referral plans. Demonstrated understanding of instructions, follow-up care. 19:07 Patient left the ED. mg2 Signatures: Roma Davila RN RN sv Geoff Aguilar MD MD rn Martinez, Maria 5 Boom Patterson RN RN mg2 Desi Valdivia ag5 Corrections: (The following items were deleted from the chart) 16:21 16:18 Presenting complaint: Patient states: reports that she was at [facility] for sv rectal bleeding and discharged, states she is still having "some" rectal bleeding and her stools are partly white as well. c/o LLQ pain. Has been on antibiotics as well since then. sv 16:23 16:18 Presenting complaint: Patient states: reports that she was at [facility] for sv rectal bleeding and discharged, states she is still having "some" rectal bleeding and her stools are partly white as well, bleeding is noted on her wipe only when she has a BM. c/o LLQ pain. Has been on antibiotics as well since then. sv 16:23 16:21 Pulse 107bpm; Resp 16bpm; Pulse Ox 95%; Temp 98.5F Temporal; 47.17 kg; Height 5 sv ft. 2 in.; BMI: 19.0; sv
[2019-04-11] MEDS ORDERED: NA CHLORIDE 0.9% 500 ML ONE (18:13)
[2019-04-11 19:18] VITALS: BP 125/78; TEMP 98; O2SAT 100
== END 2019-04-11 19:07 | disposition home or self-care (01) ==
LOC: ER 16:09
DX: K64.9 Unspecified hemorrhoids (principal); I10 Essential (primary) hypertension
CPT/HCPCS: 85025; 80048; 36415; 85610; 80076; 85730; 96360; 99283; J7040

== ENCOUNTER 2019-05-10 12:18 | Emergency (ER) | payer OTHER ==
--- OUTSIDE RECORDS SUMMARY | 2019-05-10 12:20 | XMS REPORT ---
:1935 [facility] Address [address] [place] [address] Care Team Providers Name Role Phone PRAVEEN GEORGIE BARROS Unavailable Unavailable ASHWINI ELI Unavailable Unavailable Problems This patient has no known problems. Allergies, Adverse Reactions, Alerts This patient has no known allergies or adverse reactions. Medications This patient has no known medications. Results Test Description Test Time Test Comments Text Results Atomic Results Result Comments CARCINOEMBRYONIC ANTIGEN (CEA) 2019-05-07 19:31:00 Test Item Value Reference Range Comments CARCINOEMBRYONIC ANTIGEN (BEAKER) (test zmxm=413) 3.6 ng/mL 0.0-5.0 [employer] ID - JORDYN [id number] 17:04:00 Test Item Value Reference Range Comments MAGNESIUM (BEAKER) (test pgkt=677) 1.9 mg/dL 1.6-2.6 [employer] ID - BSBASIC METABOLIC [id number] 17:04:00 Test Item Value Reference Range Comments SODIUM (BEAKER) (test 147 meq/L 136-145 ytwg=126) POTASSIUM (BEAKER) (test 3.7 meq/L 3.5-5.1 djzi=204) CHLORIDE (BEAKER) (test 109 meq/L 98-107 keta=614) CO2 (BEAKER) (test 25 meq/L 22-29 daec=810) BLOOD UREA NITROGEN 31 mg/dL 7-21 (BEAKER) (test ijmn=011) CREATININE (BEAKER) (test 1.05 mg/dL 0.57-1.25 rfwc=367) GLUCOSE RANDOM (BEAKER) 84 mg/dL 70-105 (test jbkw=965) CALCIUM (BEAKER) (test 9.1 mg/dL 8.4-10.2 fuqh=729) EGFR (BEAKER) (test 50 mL/min/1.73 sq m ESTIMATED GFR IS NOT pvyw=6566) ACCURATE CREATININE CLEARANCE IN PREDICTING GLOMERULAR FILTRATION RATE. ESTIMATED GFR IS NOT APPLICABLE FOR DIALYSIS PATIENTS. [employer] ID - BSHEPATIC FUNCTION [id number] 17:04:00 Test Item Value Reference Range Comments TOTAL PROTEIN (BEAKER) (test axwa=577) 5.7 gm/dL 6.0-8.3 ALBUMIN (BEAKER) (test pbiw=2522) 3.6 g/dL 3.5-5.0 BILIRUBIN TOTAL (BEAKER) (test njmj=438) 0.5 mg/dL 0.2-1.2 BILIRUBIN DIRECT (BEAKER) (test czqn=417) 0.2 mg/dL 0.1-0.5 ALKALINE PHOSPHATASE (BEAKER) (test ofvt=150) 73 U/L 40-150 AST (SGOT) (BEAKER) (test uats=055) 14 U/L 5-34 ALT (SGPT) (BEAKER) (test zkgx=738) 11 U/L 6-55 [employer] ID - [id number] 16:56:00 Test Item Value Reference Range Comments PROTIME (BEAKER) (test qufp=721) 13.9 seconds 11.9-14.2 INR (BEAKER) (test qbnp=244) 1.1 <=5.9 Effective 08/27/2018: PT Reference Range ChangeNew: 11.9-14.2 Previous: 11.7- 14.7RECOMMENDED COUMADIN/WARFARIN INR THERAPY RANGESSTANDARD DOSE: 2.0-3.0 Includes: PROPHYLAXIS for venous thrombosis, systemic embolization; TREATMENT for venous thrombosis and/or pulmonary embolus.HIGH RISK: Target INR is2.5-3.5 for patients wiht mechanical heart valves.[id number] 16:56:00 Test Item Value Reference Range Comments PARTIAL THROMBOPLASTIN TIME (BEAKER) (test 26.1 seconds 22.5-36.0 indk=248) CBC W/PLT COUNT & AUTO [id number] 16:43:00 Test Item Value Reference Range Comments WHITE BLOOD CELL COUNT (BEAKER) (test yldj=675) 7.8 K/ L 3.5-10.5 RED BLOOD CELL COUNT (BEAKER) (test beut=454) 3.61 M/ L 3.93-5.22 HEMOGLOBIN (BEAKER) (test haoc=036) 11.2 GM/DL 11.2-15.7 HEMATOCRIT (BEAKER) (test uenf=847) 33.5 % 34.1-44.9 MEAN CORPUSCULAR VOLUME (BEAKER) (test anpm=130) 92.8 fL 79.4-94.8 MEAN CORPUSCULAR HEMOGLOBIN (BEAKER) (test 31.0 pg 25.6-32.2 eino=729) MEAN CORPUSCULAR HEMOGLOBIN CONC (BEAKER) (test 33.4 GM/DL 32.2-35.5 hbtg=825) RED CELL DISTRIBUTION WIDTH (BEAKER) (test 12.1 % 11.7-14.4 vujr=963) PLATELET COUNT (BEAKER) (test oiwd=865) 212 K/CU MM 150-450 MEAN PLATELET VOLUME (BEAKER) (test cnsz=414) 11.7 fL 9.4-12.3 NUCLEATED RED BLOOD CELLS (BEAKER) (test 0 /100 WBC 0-0 tefr=747) NEUTROPHILS RELATIVE PERCENT (BEAKER) (test 77 % pnrl=866) LYMPHOCYTES RELATIVE PERCENT (BEAKER) (test 16 % jaea=649) MONOCYTES RELATIVE PERCENT (BEAKER) (test 6 % dvzd=112) EOSINOPHILS RELATIVE PERCENT (BEAKER) (test 0 % wfgt=211) BASOPHILS RELATIVE PERCENT (BEAKER) (test 1 % rprk=084) NEUTROPHILS ABSOLUTE COUNT (BEAKER) (test 6.01 K/ L 1.56-6.13 zmhc=583) LYMPHOCYTES ABSOLUTE COUNT (BEAKER) (test 1.24 K/ L 1.18-3.74 nylg=887) MONOCYTES ABSOLUTE COUNT (BEAKER) (test 0.46 K/ L 0.24-0.36 jmcu=773) EOSINOPHILS ABSOLUTE COUNT (BEAKER) (test 0.03 K/ L 0.04-0.36 comx=930) BASOPHILS ABSOLUTE COUNT (BEAKER) (test 0.04 K/ L 0.01-0.08 gjly=987) IMMATURE GRANULOCYTES-RELATIVE PERCENT (BEAKER) 1 % 0-1 (test kvrf=5571) CBC W/PLT COUNT & AUTO [id number] 14:26:00 Test Item Value Reference Range Comments WHITE BLOOD CELL COUNT (BEAKER) (test gdfb=357) 9.0 K/ L 3.5-10.5 RED BLOOD CELL COUNT (BEAKER) (test kchc=578) 4.23 M/ L 3.93-5.22 HEMOGLOBIN (BEAKER) (test sgml=647) 13.3 GM/DL 11.2-15.7 HEMATOCRIT (BEAKER) (test iazq=797) 40.1 % 34.1-44.9 MEAN CORPUSCULAR VOLUME (BEAKER) (test bngk=971) 94.8 fL 79.4-94.8 MEAN CORPUSCULAR HEMOGLOBIN (BEAKER) (test 31.4 pg 25.6-32.2 mjaq=824) MEAN CORPUSCULAR HEMOGLOBIN CONC (BEAKER) (test 33.2 GM/DL 32.2-35.5 iuaf=150) RED CELL DISTRIBUTION WIDTH (BEAKER) (test 12.3 % 11.7-14.4 kyau=723) PLATELET COUNT (BEAKER) (test akhq=076) 294 K/CU MM 150-450 MEAN PLATELET VOLUME (BEAKER) (test nato=223) 11.4 fL 9.4-12.3 NUCLEATED RED BLOOD CELLS (BEAKER) (test 0 /100 WBC 0-0 leps=329) NEUTROPHILS RELATIVE PERCENT (BEAKER) (test 72 % hiql=936) LYMPHOCYTES RELATIVE PERCENT (BEAKER) (test 19 % nwkh=719) MONOCYTES RELATIVE PERCENT (BEAKER) (test 7 % yfzy=177) EOSINOPHILS RELATIVE PERCENT (BEAKER) (test 1 % nvpp=214) BASOPHILS RELATIVE PERCENT (BEAKER) (test 1 % dgsg=470) NEUTROPHILS ABSOLUTE COUNT (BEAKER) (test 6.53 K/ L 1.56-6.13 drjv=342) LYMPHOCYTES ABSOLUTE COUNT (BEAKER) (test 1.70 K/ L 1.18-3.74 gwfz=804) MONOCYTES ABSOLUTE COUNT (BEAKER) (test 0.65 K/ L 0.24-0.36 ised=372) EOSINOPHILS ABSOLUTE COUNT (BEAKER) (test 0.05 K/ L 0.04-0.36 rfay=117) BASOPHILS ABSOLUTE COUNT (BEAKER) (test 0.05 K/ L 0.01-0.08 ewae=681) IMMATURE GRANULOCYTES-RELATIVE PERCENT (BEAKER) 0 % 0-1 (test icet=0351) HEPATIC FUNCTION [id number] 11:28:00 Test Item Value Reference Range Comments TOTAL PROTEIN (BEAKER) (test awch=685) 7.0 gm/dL 6.0-8.3 ALBUMIN (BEAKER) (test eujt=8536) 4.1 g/dL 3.5-5.0 BILIRUBIN TOTAL (BEAKER) (test yfzm=916) 0.7 mg/dL 0.2-1.2 BILIRUBIN DIRECT (BEAKER) (test gkme=372) 0.2 mg/dL 0.1-0.5 ALKALINE PHOSPHATASE (BEAKER) (test cywp=023) 86 U/L 40-150 AST (SGOT) (BEAKER) (test mxvf=676) 21 U/L 5-34 ALT (SGPT) (BEAKER) (test wgzs=386) 13 U/L 6-55 [id number] 11:28:00 Test Item Value Reference Range Comments LIPASE (BEAKER) (test npqv=987) 153 U/L 8-78 BASIC METABOLIC [id number] 11:27:00 Test Item Value Reference Range Comments SODIUM (BEAKER) (test 142 meq/L 136-145 fjng=127) POTASSIUM (BEAKER) (test 4.6 meq/L 3.5-5.1 qxqf=749) CHLORIDE (BEAKER) (test 104 meq/L 98-107 wkly=771) CO2 (BEAKER) (test 28 meq/L 22-29 armz=448) BLOOD UREA NITROGEN 27 mg/dL 7-21 (BEAKER) (test pwbl=080) CREATININE (BEAKER) 1.10 mg/dL 0.57-1.25 (test ztmk=356) GLUCOSE RANDOM (BEAKER) 109 mg/dL 70-105 (test bttp=868) CALCIUM (BEAKER) (test 10.1 mg/dL 8.4-10.2 sppp=575) EGFR (BEAKER) (test 47 mL/min/1.73 sq m INSUFFICIENT CLINICAL DATA slwc=2289) TO CALCULATE ESTIMATED GFR. PT/[id number] 11:19:00 Test Item Value Reference Range Comments PROTIME (BEAKER) (test fsdc=937) 12.4 seconds 11.9-14.2 INR (BEAKER) (test aqus=995) 1.0 <=5.9 PARTIAL THROMBOPLASTIN TIME (BEAKER) (test 27.3 seconds 22.5-36.0 mqxp=335) Effective 08/27/2018: PT Reference Range ChangeNew: 11.9-14.2 Previous: 11.7- 14.7RECOMMENDED COUMADIN/WARFARIN INR THERAPY RANGESSTANDARD DOSE: 2.0-3.0 Includes: PROPHYLAXIS for venous thrombosis, systemic embolization; TREATMENT for venous thrombosis and/or pulmonary embolus.HIGH RISK: Target INR is2.5-3.5 for patients wiht mechanical heart valves.RAD, ABDOMEN SERIES W/ UPRIGHT PA [id number] 10:43:00Reason for exam:->ABDOMINAL PAINReason for exam:-> RECTAL [...] frontal view of the chest. Signed: JR Pan Robert MDReport Verified Date/Time: 03/30/2019 10:43:48 Reading Location: [facility] Radiology Reading Room
[2019-05-10 13:23] LABS: Absolute Lymphocytes (CBC) 1.1 K/uL (0.7-4.9); Basophils % 0.9 % (0-1.3); Hematocrit 36.1 % (36.0-45.0); Lymphocytes % 16.6 % (15.3-44.8); MPV 10.8 fL (7.6-11.3)
[2019-05-10 13:38] LABS: Potassium 4.1 mmol/L (3.5-5.1)
--- NOTE | 2019-05-10 14:40 | RAD REPORT ---
EXAM DESCRIPTION: CTAbdomen Pelvis W Contrast - 05/10/2019 2:31 pm CLINICAL HISTORY: Abdominal pain. ABD PAIN COMPARISON: Abdomen Pelvis W Contrast dated 12/27/2018; Abdomen Pelvis W Contrast dated 11/04/2017; Abdomen Pelvis W Contrast dated 11/30/2016; Abdomen Pelvis W Contrast dated 09/17/2016 TECHNIQUE: Biphasic CT imaging of the abdomen and pelvis was performed with 100 ml non-ionic IV cont rast. All CT scans are performed using dose optimization technique as appropriate and may include automated exposure control or mA/KV adjustment according to patient size. FINDINGS: The lung bases are clear.Large hiatal hernia. The liver demonstrates mild fatty infiltration. No aggressive liver lesion seen. No biliary dilatatio n. The spleen and pancreas appear unremarkable. Multiple cysts are present in both kidneys without hy dronephrosis. Very redundant colon is present. There is marked diverticulosis identified. Significant retained stoo l is also present throughout the colon. The appendix is not identified as a discrete structure, alfaro ananda, no secondary findings of appendicitis are identified. No evidence of significant lymphadenopat hy. Left-sided inguinal hernia containing a short segment of the small intestine noted. Prominent degenerative spondylosis of the lumbar spine. IMPRESSION: Very redundant colon with significant diverticulosis and retained stool. Further assessm ent of the colon is not possible by CT. An acute process is not identified in the abdomen or pelvis. Large hiatal hernia.
[2019-05-10] MEDS ORDERED: NA CHLORIDE 0.9% 500 ML ONE (14:46)
--- NOTE | 2019-05-10 14:51 | ER ---
Nurse's Notes [facility] Name: Kevin Andujar Age: 84 yrs Sex: Female : 1935 Arrival Date: 05/10/2019 Time: 12:20 Bed 13 Private MD: Gold Florence Diagnosis: Gastrointestinal hemorrhage, unspecified;Hemorrhoids and perianal venous thrombosis Presentation: 05/10 12:29 Presenting complaint: Patient states: Had a colonoscopy done last and was told ss that she had a polyp that was too large to remove and she needed colorectal surgery. Pt was told that she should stay in the hospital to have the procedure the next day but she refused and went home to get a few things done. Pt had blood in stool this morning and is just wants to make sure that it's not a large enough amount to be concerned and that it is safe to wait for her surgery on 05/25. Transition of care: patient was not received from another setting of care. Onset of symptoms was May 10, 2019. Risk Assessment: Do you want to hurt yourself or someone else? Patient reports no desire to harm self or others. Initial Sepsis Screen: Does the patient meet any 2 criteria? No. Patient's initial sepsis screen is negative. Does the patient have a suspected source of infection? No. Patient's initial sepsis screen is negative. Care prior to arrival: None. 12:29 Method Of Arrival: Ambulatory 12:29 Acuity: NOE 3 ss Historical: - Allergies: 12:28 No Known Allergies; ss - Home Meds: 12:28 amlodipine 10 mg tab 1 tab once daily for Hypertension [Active]; Cipro 500 mg Oral tab ss 1 tab every 12 hours [Active]; Flagyl 500 mg Oral tab 1 tab 3 times per day [Active]; losartan 50 mg Oral tab 1 tab once daily [Active]; tamsulosin 0.4 mg Oral cp24 1 cap once daily for Urolithiasis [Active]; valsartan 160 mg Oral tab 1 tab once daily for Hypertension [Active]; Zofran (as hydrochloride) 4 mg Oral tab as needed [Active]; - PMHx: 12:28 Diverticulitis; hemorrhoids; Hypertension; Urolithiasis; ss - PSHx: 12:28 Hysterectomy; Tonsillectomy; Bladder suspension; ovarian cyst removed from R ovary; L ss arm lesion removed; - Immunization history:: Adult Immunizations up to date. - Coronavirus screen:: The patient has NOT traveled to [place], [place], or [place] in the past 14 days. Proceed with normal triage process as indicated. - Social history:: Smoking status: Patient denies any tobacco usage or history of. - Ebola Screening: : Patient denies exposure to infectious person Patient denies travel to an Ebola-affected area in the 21 days before illness onset. Screenin:35 Abuse screen: Denies threats or abuse. Nutritional screening: No deficits noted. rb1 Tuberculosis screening: No symptoms or risk factors identified. Fall Risk None identified. Assessment: 12:35 General: Appears in no apparent distress. comfortable, slender, Behavior is calm, rb1 cooperative, Denies fever. Pain: Denies pain. Neuro: Level of Consciousness is awake, alert, obeys commands, Oriented to person, place, time, situation. Cardiovascular: Capillary refill < 3 seconds is brisk in bilateral fingers. Respiratory: Airway is patent Respiratory effort is even, unlabored, Respiratory pattern is regular, symmetrical. GI: Reports Last bowel movement was this morning, stool was hard and pt. reports blood in stool. : No signs and/or symptoms were reported regarding the genitourinary system. Derm: Skin is pink, warm \T\ dry. Musculoskeletal: Range of motion: intact in all extremities. 13:35 Reassessment: Patient and/or family updated on plan of care and expected duration. Pain vc level reassessed. Patient is alert, oriented x 3, equal unlabored respirations, skin warm/dry/pink. Patient denies pain at this time. 14:35 Reassessment: Patient and/or family updated on plan of care and expected duration. Pain vc level reassessed. Patient is alert, oriented x 3, equal unlabored respirations, skin warm/dry/pink. Patient denies pain at this time. 15:35 Reassessment: Patient and/or family updated on plan of care and expected duration. Pain vc level reassessed. Patient is alert, oriented x 3, equal unlabored respirations, skin warm/dry/pink. Patient denies pain at this time. Neuro: Level of Consciousness is awake, alert, obeys commands, Oriented to person, place, time, situation. Vital Signs: 12:28 BP 140 / 79; Pulse 89; Resp 18; Temp 98.1(TE); Pulse Ox 98% on R/A; Weight 45.81 kg; ss Height 5 ft. 2 in. (157.48 cm); Pain 0/10; 13:21 BP 139 / 79; Pulse 80; Resp 18; Temp 98.3(TE); Pulse Ox 97% on R/A; mh5 13:30 BP 143 / 70; Pulse 85; Resp 18; Pulse Ox 96% on R/A; vc 14:23 BP 128 / 82; Pulse 79; Resp 17; Temp 98.0(TE); Pulse Ox 96% on R/A; mh5 15:28 BP 151 / 86; Pulse 94; Resp 17; Temp 98.2(TE); Pulse Ox 96% on R/A; mh5 12:28 Body Mass Index 18.47 (45.81 kg, 157.48 cm) ss ED Course: 12:20 Patient arrived in ED. as 12:20 Gold Florence MD is Private Physician. as 12:28 Arm band placed on left wrist. ss 12:32 Triage completed. ss 12:35 Patient has correct armband on for positive identification. Bed in low position. Call rb1 light in reach. Side rails up X 1. Pulse ox on. NIBP on. Warm blanket given. 12:36 Janki Sow FNP-C is PHCP. kb 12:36 Geoff Aguilar MD is Attending Physician. kb 12:37 Tracie Watt, GEETHA is Primary Nurse. rb1 13:00 Report given to GEETHA Doe. rb1 14:48 CT In Process Unspecified. EDMS 15:58 No provider procedures requiring assistance completed. IV discontinued, intact, vc bleeding controlled, No redness/swelling at site. Pressure dressing applied. Administered Medications: 14:48 Drug: NS 0.9% 500 ml Route: IV; Rate: bolus; Site: right antecubital; vc 15:18 Follow up: IV Status: Completed infusion; IV Intake: 500ml vc Intake: 15:18 IV: 500ml; Total: 500ml. vc Outcome: 14:50 Discharge ordered by . kb 15:59 Discharged to home ambulatory, with family. vc 15:59 Condition: good 15:59 Discharge instructions given to patient, family, Instructed on discharge instructions, follow up and referral plans. Demonstrated understanding of instructions, follow-up care. 16:02 Patient left the ED. vc Signatures: Dispatcher [employer] Janki Yeager, HARRIETT-Sea LORENZANA-Indy Carter Shelby, GEETHA RN Tracie Watt RN RN [facility] Kathleen Birch [facility] Brook Abraham RN RN vc
--- NOTE | 2019-05-10 14:51 | EDPHYS ---
Physician Documentation [facility] Name: Kevin Andujar Age: 84 yrs Sex: Female : 1935 Arrival Date: 05/10/2019 Time: 12:20 Bed 13 Private MD: [facility] [place] ED Physician Geoff Aguilar HPI: 05/10 13:23 This 84 yrs old Female presents to ER via Ambulatory with complaints of GI kb Bleeding. 13:21 Pt reports she had a colonoscopy on . She has had some cramping since then, no kb BM yesterday so she was constipated and had to strain to have a BM today. States she noticed blood in the toilet after that. Son reports he called pt's colorectal surgeon and was told to bring her in to make sure her blood counts are good. Pt is scheduled for surgery on 05/25. 13:23 The patient presents to the emergency department with rectal bleeding, a small amount, kb bright red blood with bowel movement. Onset: The symptoms/episode began/occurred this morning. Abdominal pain: none is appreciated. Modifying factors: The symptoms are alleviated by nothing, the symptoms are aggravated by nothing. Associated signs and symptoms:. Severity of symptoms: At their worst the symptoms were mild moderate in the emergency department the symptoms have improved. The patient has experienced similar episodes in the past, a few times. The patient has not recently seen a physician. Historical: - Allergies: 12:28 No Known Allergies; ss - Home Meds: 12:28 amlodipine 10 mg tab 1 tab once daily for Hypertension [Active]; Cipro 500 mg Oral tab ss 1 tab every 12 hours [Active]; Flagyl 500 mg Oral tab 1 tab 3 times per day [Active]; losartan 50 mg Oral tab 1 tab once daily [Active]; tamsulosin 0.4 mg Oral cp24 1 cap once daily for Urolithiasis [Active]; valsartan 160 mg Oral tab 1 tab once daily for Hypertension [Active]; Zofran (as hydrochloride) 4 mg Oral tab as needed [Active]; - PMHx: 12:28 Diverticulitis; hemorrhoids; Hypertension; Urolithiasis; ss - PSHx: 12:28 Hysterectomy; Tonsillectomy; Bladder suspension; ovarian cyst removed from R ovary; L ss arm lesion removed; - Immunization history:: Adult Immunizations up to date. - Coronavirus screen:: The patient has NOT traveled to [place], [place], or [place] in the past 14 days. Proceed with normal triage process as indicated. - Social history:: Smoking status: Patient denies any tobacco usage or history of. - Ebola Screening: : Patient denies exposure to infectious person Patient denies travel to an Ebola-affected area in the 21 days before illness onset. ROS: 13:26 Constitutional: Negative for fever, chills, and weight loss, ENT: Negative for injury, kb pain, and discharge, Neck: Negative for injury, pain, and swelling, Cardiovascular: Negative for chest pain, palpitations, and edema, Respiratory: Negative for shortness of breath, cough, wheezing, and pleuritic chest pain, Back: Negative for injury and pain, : Negative for injury, bleeding, discharge, and swelling, MS/Extremity: Negative for injury and deformity, Skin: Negative for injury, rash, and discoloration, Neuro: Negative for headache, weakness, numbness, tingling, and seizure. 13:26 Abdomen/GI: Positive for rectal bleeding. Exam: 13:26 Constitutional: This is a well developed, well nourished patient who is awake, alert, kb and in no acute distress. Head/Face: Normocephalic, atraumatic. Neck: Trachea midline, no thyromegaly or masses palpated, and no cervical lymphadenopathy. Supple, full range of motion without nuchal rigidity, or vertebral point tenderness. No Meningismus. Chest/axilla: Normal chest wall appearance and motion. Nontender with no deformity. No lesions are appreciated. Cardiovascular: Regular rate and rhythm with a normal S1 and S2. No gallops, murmurs, or rubs. Normal PMI, no JVD. No pulse deficits. Respiratory: Lungs have equal breath sounds bilaterally, clear to auscultation and percussion. No rales, rhonchi or wheezes noted. No increased work of breathing, no retractions or nasal flaring. Abdomen/GI: Soft, non-tender, with normal bowel sounds. No distension or tympany. No guarding or rebound. No evidence of tenderness throughout. Skin: Warm, dry with normal turgor. Normal color with no rashes, no lesions, and no evidence of cellulitis. MS/ Extremity: Pulses equal, no cyanosis. Neurovascular intact. Full, normal range of motion. Neuro: Awake and alert, GCS 15, oriented to person, place, time, and situation. Cranial nerves II-XII grossly intact. Motor strength 5/5 in all extremities. Sensory grossly intact. Cerebellar exam normal. Normal gait. 13:53 Abdomen/GI: Rectal exam: rectal tone normal, Stool: guaiac positive, claribel muniz hemorrhoid(s), external, with associated bleeding, with inflammation, without thrombosis, without pain. Vital Signs: 12:28 BP 140 / 79; Pulse 89; Resp 18; Temp 98.1(TE); Pulse Ox 98% on R/A; Weight 45.81 kg; ss Height 5 ft. 2 in. (157.48 cm); Pain 0/10; 13:21 BP 139 / 79; Pulse 80; Resp 18; Temp 98.3(TE); Pulse Ox 97% on R/A; mh5 13:30 BP 143 / 70; Pulse 85; Resp 18; Pulse Ox 96% on R/A; vc 14:23 BP 128 / 82; Pulse 79; Resp 17; Temp 98.0(TE); Pulse Ox 96% on R/A; mh5 15:28 BP 151 / 86; Pulse 94; Resp 17; Temp 98.2(TE); Pulse Ox 96% on R/A; mh5 12:28 Body Mass Index 18.47 (45.81 kg, 157.48 cm) ss MDM: 12:36 Patient medically screened. kb 13:21 Data reviewed: vital signs, nurses notes. Data interpreted: Pulse oximetry: on room air kb is 98 %. Interpretation: normal. 13:52 ED course: Pt now reports some intermittent pain to lower abd that started today. . kb 14:48 Data reviewed: lab test result(s), radiologic studies, CT scan. 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 ED course: Discussed pt history, exam and diagnostics with ERP. Agrees with outpatient follow up with colorectal surgeon. . 02/09 12:50 Order name: CBC with Diff; Complete Time: 13:26 kb 05/10 12:50 Order name: Basic Metabolic Panel; Complete Time: 13:51 kb 05/10 12:50 Order name: IV Start; Complete Time: 13:19 kb 05/10 13:52 Order name: CT Abd/Pelvis - IV Contrast Only kb 05/10 14:45 Order name: CT EDMS Administered Medications: 14:48 Drug: NS 0.9% 500 ml Route: IV; Rate: bolus; Site: right antecubital; vc 15:18 Follow up: IV Status: Completed infusion; IV Intake: 500ml vc Disposition: 17:40 Co-signature as Attending Physician, Geoff Aguilar MD. rn Disposition: 05/10/19 14:50 Discharged to Home. Impression: Gastrointestinal hemorrhage, unspecified, Hemorrhoids and perianal venous thrombosis. - Condition is Stable. - Discharge Instructions: Hemorrhoids, Fusg-bn-Tvkm, Rectal Bleeding, Ygxx-yf-Sfos. - Medication Reconciliation Form, Thank You Letter, Antibiotic Education, Prescription Opioid Use form. - Follow up: Private Physician; When: 2 - 3 days; Reason: Recheck today's complaints, Continuance of care, Re-evaluation by your physician. Follow up: Emergency Department; When: As needed; Reason: Worsening of condition. Signatures: Dispatcher [employer] EDJanki Mathis, COMPLIANCE ADVISOR-C COMPLIANCE ADVISOR-Ckb Geoff Aguilar MD MD rn Smirch, Shelby, RN RN ss Brook Abraham RN RN vc Corrections: (The following items were deleted from the chart) 16:02 14:50 05/10/2019 14:50 Discharged to Home. Impression: Gastrointestinal hemorrhage, vc unspecified; Hemorrhoids and perianal venous thrombosis. Condition is Stable. Forms are Medication Reconciliation Form, Thank You Letter, Antibiotic Education, Prescription Opioid Use. Follow up: Private Physician; When: 2 - 3 days; Reason: Recheck today's complaints, Continuance of care, Re-evaluation by your physician. Follow up: Emergency Department; When: As needed; Reason: Worsening of condition. kb
[2019-05-10 16:11] VITALS: O2SAT 96
[2019-05-10 16:13] VITALS: BP 151/86; TEMP 98.2
== END 2019-05-10 16:02 | disposition home or self-care (01) ==
LOC: ER 12:18
DX: K92.2 Gastrointestinal hemorrhage, unspecified (principal); K64.9 Unspecified hemorrhoids; K64.5 Perianal venous thrombosis; I10 Essential (primary) hypertension
CPT/HCPCS: 85025; 80048; 36415; 74177; 99284; J7040

== ENCOUNTER 2019-05-11 09:47 | Emergency (ER) | payer OTHER ==
--- OUTSIDE RECORDS SUMMARY | 2019-05-11 09:50 | XMS REPORT ---
:1935 [facility] Address [address] [place] [address] Care Team Providers Name Role Phone DORAPITAENRIQUE GEORGIE BARROS Unavailable Unavailable ASHWINI ELI Unavailable Unavailable Problems This patient has no known problems. Allergies, Adverse Reactions, Alerts This patient has no known allergies or adverse reactions. Medications This patient has no known medications. Results Test Description Test Time Test Comments Text Results Atomic Results Result Comments CARCINOEMBRYONIC ANTIGEN (CEA) 2019-05-07 19:31:00 Test Item Value Reference Range Comments CARCINOEMBRYONIC ANTIGEN (BEAKER) (test kyjx=256) 3.6 ng/mL 0.0-5.0 Weight Loss Physician ID - JORDYN [id number] 17:04:00 Test Item Value Reference Range Comments MAGNESIUM (BEAKER) (test rpor=155) 1.9 mg/dL 1.6-2.6 Weight Loss Physician ID - BSBASIC METABOLIC [id number] 17:04:00 Test Item Value Reference Range Comments SODIUM (BEAKER) (test 147 meq/L 136-145 hino=438) POTASSIUM (BEAKER) (test 3.7 meq/L 3.5-5.1 npnw=753) CHLORIDE (BEAKER) (test 109 meq/L 98-107 rjkw=820) CO2 (BEAKER) (test 25 meq/L 22-29 sqqe=371) BLOOD UREA NITROGEN 31 mg/dL 7-21 (BEAKER) (test mjpa=147) CREATININE (BEAKER) (test 1.05 mg/dL 0.57-1.25 ukdf=699) GLUCOSE RANDOM (BEAKER) 84 mg/dL 70-105 (test pule=797) CALCIUM (BEAKER) (test 9.1 mg/dL 8.4-10.2 igjj=398) EGFR (BEAKER) (test 50 mL/min/1.73 sq m ESTIMATED GFR IS NOT venb=9318) ACCURATE CREATININE CLEARANCE IN PREDICTING GLOMERULAR FILTRATION RATE. ESTIMATED GFR IS NOT APPLICABLE FOR DIALYSIS PATIENTS. Weight Loss Physician ID - BSHEPATIC FUNCTION [id number] 17:04:00 Test Item Value Reference Range Comments TOTAL PROTEIN (BEAKER) (test zuro=821) 5.7 gm/dL 6.0-8.3 ALBUMIN (BEAKER) (test qwxb=9548) 3.6 g/dL 3.5-5.0 BILIRUBIN TOTAL (BEAKER) (test kpuv=183) 0.5 mg/dL 0.2-1.2 BILIRUBIN DIRECT (BEAKER) (test vfei=781) 0.2 mg/dL 0.1-0.5 ALKALINE PHOSPHATASE (BEAKER) (test ezxk=982) 73 U/L 40-150 AST (SGOT) (BEAKER) (test dofi=370) 14 U/L 5-34 ALT (SGPT) (BEAKER) (test fubt=757) 11 U/L 6-55 Weight Loss Physician ID - BSPROTHROMBIN [id number] 16:56:00 Test Item Value Reference Range Comments PROTIME (BEAKER) (test hmqe=290) 13.9 seconds 11.9-14.2 INR (BEAKER) (test wamo=888) 1.1 <=5.9 Effective 08/27/2018: PT Reference Range ChangeNew: 11.9-14.2 Previous: 11.7- 14.7RECOMMENDED COUMADIN/WARFARIN INR THERAPY RANGESSTANDARD DOSE: 2.0-3.0 Includes: PROPHYLAXIS for venous thrombosis, systemic embolization; TREATMENT for venous thrombosis and/or pulmonary embolus.HIGH RISK: Target INR is2.5-3.5 for patients wiht mechanical heart valves.[id number] 16:56:00 Test Item Value Reference Range Comments PARTIAL THROMBOPLASTIN TIME (BEAKER) (test 26.1 seconds 22.5-36.0 mdwc=556) CBC W/PLT COUNT & AUTO [id number] 16:43:00 Test Item Value Reference Range Comments WHITE BLOOD CELL COUNT (BEAKER) (test ecwd=576) 7.8 K/ L 3.5-10.5 RED BLOOD CELL COUNT (BEAKER) (test yzei=047) 3.61 M/ L 3.93-5.22 HEMOGLOBIN (BEAKER) (test lmne=920) 11.2 GM/DL 11.2-15.7 HEMATOCRIT (BEAKER) (test grhy=686) 33.5 % 34.1-44.9 MEAN CORPUSCULAR VOLUME (BEAKER) (test ndyr=637) 92.8 fL 79.4-94.8 MEAN CORPUSCULAR HEMOGLOBIN (BEAKER) (test 31.0 pg 25.6-32.2 bzjf=690) MEAN CORPUSCULAR HEMOGLOBIN CONC (BEAKER) (test 33.4 GM/DL 32.2-35.5 hjcj=362) RED CELL DISTRIBUTION WIDTH (BEAKER) (test 12.1 % 11.7-14.4 zapp=578) PLATELET COUNT (BEAKER) (test ewpf=932) 212 K/CU MM 150-450 MEAN PLATELET VOLUME (BEAKER) (test umjg=212) 11.7 fL 9.4-12.3 NUCLEATED RED BLOOD CELLS (BEAKER) (test 0 /100 WBC 0-0 xfvj=027) NEUTROPHILS RELATIVE PERCENT (BEAKER) (test 77 % lgge=283) LYMPHOCYTES RELATIVE PERCENT (BEAKER) (test 16 % dmoy=554) MONOCYTES RELATIVE PERCENT (BEAKER) (test 6 % lutu=239) EOSINOPHILS RELATIVE PERCENT (BEAKER) (test 0 % rnfa=114) BASOPHILS RELATIVE PERCENT (BEAKER) (test 1 % uous=627) NEUTROPHILS ABSOLUTE COUNT (BEAKER) (test 6.01 K/ L 1.56-6.13 oqiq=237) LYMPHOCYTES ABSOLUTE COUNT (BEAKER) (test 1.24 K/ L 1.18-3.74 affg=784) MONOCYTES ABSOLUTE COUNT (BEAKER) (test 0.46 K/ L 0.24-0.36 vvqz=596) EOSINOPHILS ABSOLUTE COUNT (BEAKER) (test 0.03 K/ L 0.04-0.36 cliv=806) BASOPHILS ABSOLUTE COUNT (BEAKER) (test 0.04 K/ L 0.01-0.08 lkhq=494) IMMATURE GRANULOCYTES-RELATIVE PERCENT (BEAKER) 1 % 0-1 (test xwfi=8683) CBC W/PLT COUNT & AUTO [id number] 14:26:00 Test Item Value Reference Range Comments WHITE BLOOD CELL COUNT (BEAKER) (test mjqv=462) 9.0 K/ L 3.5-10.5 RED BLOOD CELL COUNT (BEAKER) (test ifxo=341) 4.23 M/ L 3.93-5.22 HEMOGLOBIN (BEAKER) (test aysn=411) 13.3 GM/DL 11.2-15.7 HEMATOCRIT (BEAKER) (test yjyw=933) 40.1 % 34.1-44.9 MEAN CORPUSCULAR VOLUME (BEAKER) (test jdwe=049) 94.8 fL 79.4-94.8 MEAN CORPUSCULAR HEMOGLOBIN (BEAKER) (test 31.4 pg 25.6-32.2 jkbq=636) MEAN CORPUSCULAR HEMOGLOBIN CONC (BEAKER) (test 33.2 GM/DL 32.2-35.5 dvqc=507) RED CELL DISTRIBUTION WIDTH (BEAKER) (test 12.3 % 11.7-14.4 jxcd=218) PLATELET COUNT (BEAKER) (test nyqx=482) 294 K/CU MM 150-450 MEAN PLATELET VOLUME (BEAKER) (test qqwo=560) 11.4 fL 9.4-12.3 NUCLEATED RED BLOOD CELLS (BEAKER) (test 0 /100 WBC 0-0 yyat=588) NEUTROPHILS RELATIVE PERCENT (BEAKER) (test 72 % bgco=425) LYMPHOCYTES RELATIVE PERCENT (BEAKER) (test 19 % aadd=695) MONOCYTES RELATIVE PERCENT (BEAKER) (test 7 % uxey=885) EOSINOPHILS RELATIVE PERCENT (BEAKER) (test 1 % rpfy=922) BASOPHILS RELATIVE PERCENT (BEAKER) (test 1 % swfu=092) NEUTROPHILS ABSOLUTE COUNT (BEAKER) (test 6.53 K/ L 1.56-6.13 butq=696) LYMPHOCYTES ABSOLUTE COUNT (BEAKER) (test 1.70 K/ L 1.18-3.74 gksb=728) MONOCYTES ABSOLUTE COUNT (BEAKER) (test 0.65 K/ L 0.24-0.36 jwyl=880) EOSINOPHILS ABSOLUTE COUNT (BEAKER) (test 0.05 K/ L 0.04-0.36 hgul=468) BASOPHILS ABSOLUTE COUNT (BEAKER) (test 0.05 K/ L 0.01-0.08 snjn=894) IMMATURE GRANULOCYTES-RELATIVE PERCENT (BEAKER) 0 % 0-1 (test jstb=5407) HEPATIC FUNCTION [id number] 11:28:00 Test Item Value Reference Range Comments TOTAL PROTEIN (BEAKER) (test myxp=826) 7.0 gm/dL 6.0-8.3 ALBUMIN (BEAKER) (test ludx=0038) 4.1 g/dL 3.5-5.0 BILIRUBIN TOTAL (BEAKER) (test xylk=902) 0.7 mg/dL 0.2-1.2 BILIRUBIN DIRECT (BEAKER) (test jjbr=082) 0.2 mg/dL 0.1-0.5 ALKALINE PHOSPHATASE (BEAKER) (test rptw=593) 86 U/L 40-150 AST (SGOT) (BEAKER) (test ujxv=223) 21 U/L 5-34 ALT (SGPT) (BEAKER) (test wtsq=070) 13 U/L 6-55 [id number] 11:28:00 Test Item Value Reference Range Comments LIPASE (BEAKER) (test rvxn=269) 153 U/L 8-78 BASIC METABOLIC [id number] 11:27:00 Test Item Value Reference Range Comments SODIUM (BEAKER) (test 142 meq/L 136-145 nyyd=281) POTASSIUM (BEAKER) (test 4.6 meq/L 3.5-5.1 smbw=454) CHLORIDE (BEAKER) (test 104 meq/L 98-107 eoga=004) CO2 (BEAKER) (test 28 meq/L 22-29 prse=048) BLOOD UREA NITROGEN 27 mg/dL 7-21 (BEAKER) (test xkkz=268) CREATININE (BEAKER) 1.10 mg/dL 0.57-1.25 (test wyuz=859) GLUCOSE RANDOM (BEAKER) 109 mg/dL 70-105 (test mopa=536) CALCIUM (BEAKER) (test 10.1 mg/dL 8.4-10.2 khzx=293) EGFR (BEAKER) (test 47 mL/min/1.73 sq m INSUFFICIENT CLINICAL DATA hknu=3946) TO CALCULATE ESTIMATED GFR. [id number] 11:19:00 Test Item Value Reference Range Comments PROTIME (BEAKER) (test ofzz=082) 12.4 seconds 11.9-14.2 INR (BEAKER) (test fubz=909) 1.0 <=5.9 PARTIAL THROMBOPLASTIN TIME (BEAKER) (test 27.3 seconds 22.5-36.0 uqxi=005) Effective 08/27/2018: PT Reference Range ChangeNew: 11.9-14.2 Previous: 11.7- 14.7RECOMMENDED COUMADIN/WARFARIN INR THERAPY RANGESSTANDARD DOSE: 2.0-3.0 Includes: PROPHYLAXIS for venous thrombosis, systemic embolization; TREATMENT for venous thrombosis and/or pulmonary embolus.HIGH RISK: Target INR is2.5-3.5 for patients wiht mechanical heart valves.RAD, ABDOMEN SERIES W/ UPRIGHT PA [id number] 10:43:00Reason for exam:->ABDOMINAL PAINReason for exam:-> RECTAL [...] MDReport Verified Date/Time: 03/30/2019 10:43:48 Reading Location: [facility] Reading Room
[2019-05-11] MEDS ORDERED: NA CHLORIDE 0.9% 1,000 ML ONE (10:40)
[2019-05-11] MEDS ORDERED: METRONIDAZOLE 500mg IVPB 500 MG/100 ML BAG IV ONE (10:41)
[2019-05-11] MEDS ORDERED: CEFTRIAXONE/SWI 1gm 1 GM/10 ML SYR ONE (10:41)
[2019-05-11 11:03] LABS: Absolute Lymphocytes (CBC) 1.6 K/uL (0.7-4.9); Basophils % 0.9 % (0-1.3); Hematocrit 38.5 % (36.0-45.0); Lymphocytes % 21.8 % (15.3-44.8); MPV 10.9 fL (7.6-11.3); RBC Red Blood Cell Count 4.14 M/uL (3.86-4.86)
[2019-05-11 11:23] LABS: Albumin 3.7 g/dL (3.4-5.0); Bilirubin Direct 0.2 mg/dL (0-0.2); Bilirubin Total 0.7 mg/dL (0.2-1.0); Potassium 4.2 mmol/L (3.5-5.1); Protein, Total 6.8 g/dL (6.4-8.2)
--- NOTE | 2019-05-11 13:14 | RAD REPORT ---
EXAM DESCRIPTION: CT - Abdomen Pelvis W Contrast - 05/11/2019 12:56 pm CLINICAL HISTORY: Abdominal pain COMPARISON: May 10, 2019 TECHNIQUE: Computed axial tomography of the abdomen pelvis was obtained. 100 cc [id number] was admin istered intravenously. Oral contrast was given All CT scans are performed using dose optimization technique as appropriate and may include automated exposure control or mA/KV adjustment according to patient size. FINDINGS: A large hiatal hernia containing stomach and transverse colon Liver, spleen, pancreas and adrenals unremarkable. Bilateral renal cysts are unchanged There is no evidence of diverticulitis. The colon is redundant. The area of narrowing involves the as cending colon. On the prior exam this appears normal so this likely represent spasm Bilateral inguinal hernias contain nondilated bowel IMPRESSION: No acute abnormality is displayed.
--- NOTE | 2019-05-11 14:12 | EDPHYS ---
Physician Documentation [facility] Name: Kevin Andujar Age: 84 yrs Sex: Female : 1935 Arrival Date: 05/11/2019 Time: 09:50 Bed 3 Private MD: ED Physician Rehan Felix HPI: 05/11 14:09 This 84 yrs old Female presents to ER via Wheelchair with complaints of GI ma2 Bleeding. 14:09 The patient presents to the emergency department with rectal bleeding. Onset: The ma2 symptoms/episode began/occurred gradually. Abdominal pain: located in the umbilical area. Associated signs and symptoms: Pertinent negatives: chest pain, dizziness at rest, dizziness when standing. Severity of symptoms: At their worst the symptoms were mild in the emergency department the symptoms are unchanged. The patient has not experienced similar symptoms in the past, The patient has experienced similar episodes in the past, a few times. she had colonoscopy 4 days ago and scheduled to see colorctal surgeon tomorrow, here for abd pain, no gi bleeding . Historical: - Allergies: 10:18 No Known Allergies; iw - Home Meds: 10:18 amlodipine 10 mg tab 1 tab once daily for Hypertension [Active]; Cipro 500 mg Oral tab iw 1 tab every 12 hours [Active]; Flagyl 500 mg Oral tab 1 tab 3 times per day [Active]; losartan 50 mg Oral tab 1 tab once daily [Active]; tamsulosin 0.4 mg Oral cp24 1 cap once daily for Urolithiasis [Active]; valsartan 160 mg Oral tab 1 tab once daily for Hypertension [Active]; Zofran (as hydrochloride) 4 mg Oral tab as needed [Active]; - PMHx: 10:18 Diverticulitis; hemorrhoids; Hypertension; Urolithiasis; iw - PSHx: 10:18 Hysterectomy; Bladder suspension; Tonsillectomy; ovarian cyst removed from R ovary; L iw arm lesion removed; - Immunization history:: Adult Immunizations. - Coronavirus screen:: The patient has NOT traveled to [place], [place], or [place] in the past 14 days. Proceed with normal triage process as indicated. - Social history:: Patient/guardian denies using alcohol, street drugs, The patient lives with family, Smoking status: Patient denies any tobacco usage or history of. - Family history:: not pertinent. - Ebola Screening: : Patient negative for fever greater than or equal to 101.5 degrees Fahrenheit, and additional compatible Ebola Virus Disease symptoms Patient denies exposure to infectious person Patient denies travel to an Ebola-affected area in the 21 days before illness onset No symptoms or risks identified at this time. ROS: 14:09 Constitutional: Negative for fever, chills, and weight loss. ma2 14:09 All other systems are negative. Exam: 14:09 Constitutional: This is a well developed, well nourished patient who is awake, alert, ma2 and in no acute distress. Eyes: Pupils equal round and reactive to light, extra-ocular motions intact. Lids and lashes normal. Conjunctiva and sclera are non-icteric and not injected. Cornea within normal limits. Periorbital areas with no swelling, redness, or edema. ENT: Nares patent. No nasal discharge, no septal abnormalities noted. Tympanic membranes are normal and external auditory canals are clear. Oropharynx with no redness, swelling, or masses, exudates, or evidence of obstruction, uvula midline. Mucous membranes moist. Chest/axilla: Normal chest wall appearance and motion. Nontender with no deformity. No lesions are appreciated. Cardiovascular: Regular rate and rhythm with a normal S1 and S2. No gallops, murmurs, or rubs. Normal PMI, no JVD. No pulse deficits. Respiratory: Lungs have equal breath sounds bilaterally, clear to auscultation and percussion. No rales, rhonchi or wheezes noted. No increased work of breathing, no retractions or nasal flaring. Abdomen/GI: Soft, non-tender, with normal bowel sounds. No distension or tympany. No guarding or rebound. No evidence of tenderness throughout. Vital Signs: 10:18 BP 141 / 90; Pulse 78; Resp 16; Temp 97.5; Pulse Ox 96% on R/A; Weight 45.81 kg; Height iw 5 ft. 2 in. (157.48 cm); Pain 6/10; 11:15 BP 141 / 84; Pulse 96; Resp 16; Pulse Ox 99% on R/A; Pain 3/10; em 13:17 BP 129 / 69; Pulse 93; Resp 16; Pulse Ox 97% on R/A; Pain 2/10; em 14:00 BP 131 / 81; Pulse 84; Resp 16; Pulse Ox 95% on R/A; Pain 3/10; em 10:18 Body Mass Index 18.47 (45.81 kg, 157.48 cm) iw MDM: 10:20 Patient medically screened. ma2 14:09 Differential diagnosis: gastritis, diverticulitis, hemorrhoids, varices. Data reviewed: [facility] vital signs, nurses notes. Counseling: I had a detailed discussion with the patient and/or guardian regarding: the historical points, exam findings, and any diagnostic results supporting the discharge/admit diagnosis, the presence of at least one elevated blood pressure reading (>120/80) during this emergency department visit, the need for outpatient follow up. Response to treatment: the patient's symptoms have markedly improved after treatment. 05/11 10:23 Order name: Basic Metabolic Panel [facility] 05/11 10:23 Order name: CBC with Diff [facility] 05/11 10:23 Order name: Creatinine for Radiology [facility] 05/11 10:23 Order name: Hepatic Function [facility] 05/11 10:23 Order name: Lipase [facility] 05/11 10:23 Order name: Type And Screen [facility] 05/11 10:33 Order name: CT Abd/Pelvis - PO and IV Contrast [facility] 05/11 11:05 Order name: CBC with Automated Diff; Complete Time: 11:40 EDMS 05/11 11:17 Order name: Creatinine (Radiology Only); Complete Time: 11:40 EDMS 05/11 11:23 Order name: Basic Metabolic Panel; Complete Time: 11:40 EDMS 05/11 11:23 Order name: Liver (Hepatic) Function; Complete Time: 11:40 EDMS 05/11 11:23 Order name: Lipase; Complete Time: 11:40 EDMS 05/11 11:43 Order name: Type and Screen; Complete Time: 13:08 EDMS 05/11 13:51 Order name: CT; Complete Time: 14:08 EDMS 05/11 10:23 Order name: IV Saline Lock; Complete Time: 11:10 [facility] 05/11 10:23 Order name: Labs collected and sent; Complete Time: 11:10 ma2 05/11 10:33 Order name: Urine Dipstick-Ancillary (obtain specimen); Complete Time: 11:09 [facility] Administered Medications: 10:45 Drug: Rocephin 1 grams Route: IV; Rate: calculated rate; Site: right forearm; em 10:45 Drug: NS 0.9% 1000 ml Route: IV; Rate: 1 bolus; Site: right forearm; em 12:08 Follow up: Response: No adverse reaction; IV Status: Completed infusion; IV Intake: sg 1000ml 10:48 Drug: Flagyl 500 mg Volume: 100 ml; Route: IVPB; Rate: 200 ml/hr; Infused Over: 30 em mins; Site: right forearm; 12:08 Follow up: Response: No adverse reaction; IV Status: Completed infusion sg 11:14 Not Given (Physician Discretion): Gastrografin Liquid 60 ml PO once em Disposition: 05/11/19 14:11 Discharged to Home. Impression: Diverticulosis of both small and large intestine without perforation or abscess with bleeding. - Condition is Stable. - Discharge Instructions: Diverticulosis. - Prescriptions for Flagyl 500 mg Oral Tablet - take 4 tablet by ORAL route one time for 1 day; 4 tablet. Cipro 500 mg Oral Tablet - take 1 tablet by ORAL route every 12 hours for 7 days; 14 tablet. - Medication Reconciliation Form, Thank You Letter, Antibiotic Education, Prescription Opioid Use form. - Follow up: Private Physician; When: Tomorrow; Reason: Continuance of care. Signatures: Dispatcher [employer] Loco Shane RN RN em Brandi Galvan RN RN Rehan Felix MD MD ma2 Ashwin Smith RN sg Corrections: (The following items were deleted from the chart) 14:49 14:11 05/11/2019 14:11 Discharged to Home. Impression: Diverticulosis of both small and em large intestine without perforation or abscess with bleeding. Condition is Stable. Prescriptions for Flagyl 500 mg Oral Tablet - take 4 tablet by ORAL route one time for 1 day; 4 tablet, Cipro 500 mg Oral Tablet - take 1 tablet by ORAL route every 12 hours for 7 days; 14 tablet. and Forms are Medication Reconciliation Form, Thank You Letter, Antibiotic Education, Prescription Opioid Use. Follow up: Private Physician; When: Tomorrow; Reason: Continuance of care. hernan
--- NOTE | 2019-05-11 14:12 | ER ---
Nurse's Notes [facility] Name: Kevin Andujar Age: 84 yrs Sex: Female : 1935 Arrival Date: 05/11/2019 Time: 09:50 Bed 3 Private MD: Diagnosis: Diverticulosis of both small and large intestine without perforation or abscess with bleeding Presentation: 05/11 10:15 Presenting complaint: Patient states: was in here yesterday for GI bleeding , was told iw she has hemorrhoids, still having bleeding and thinks it's her diverticulitis, also has pain in lower abd, described as cramping and gas, pt states she is having dark bleeding every time she goes to the bathroom and feels weak and dizzy. Transition of care: patient was not received from another setting of care. Onset of symptoms was May 11, 2019. Risk Assessment: Do you want to hurt yourself or someone else? Patient reports no desire to harm self or others. Initial Sepsis Screen: Does the patient meet any 2 criteria? No. Patient's initial sepsis screen is negative. Does the patient have a suspected source of infection? No. Patient's initial sepsis screen is negative. Care prior to arrival: None. 10:15 Method Of Arrival: Wheelchair iw 10:15 Acuity: NOE 3 iw Historical: - Allergies: 10:18 No Known Allergies; iw - Home Meds: 10:18 amlodipine 10 mg tab 1 tab once daily for Hypertension [Active]; Cipro 500 mg Oral tab iw 1 tab every 12 hours [Active]; Flagyl 500 mg Oral tab 1 tab 3 times per day [Active]; losartan 50 mg Oral tab 1 tab once daily [Active]; tamsulosin 0.4 mg Oral cp24 1 cap once daily for Urolithiasis [Active]; valsartan 160 mg Oral tab 1 tab once daily for Hypertension [Active]; Zofran (as hydrochloride) 4 mg Oral tab as needed [Active]; - PMHx: 10:18 Diverticulitis; hemorrhoids; Hypertension; Urolithiasis; iw - PSHx: 10:18 Hysterectomy; Bladder suspension; Tonsillectomy; ovarian cyst removed from R ovary; L iw arm lesion removed; - Immunization history:: Adult Immunizations. - Coronavirus screen:: The patient has NOT traveled to [place], [place], or [place] in the past 14 days. Proceed with normal triage process as indicated. - Social history:: Patient/guardian denies using alcohol, street drugs, The patient lives with family, Smoking status: Patient denies any tobacco usage or history of. - Family history:: not pertinent. - Ebola Screening: : Patient negative for fever greater than or equal to 101.5 degrees Fahrenheit, and additional compatible Ebola Virus Disease symptoms Patient denies exposure to infectious person Patient denies travel to an Ebola-affected area in the 21 days before illness onset No symptoms or risks identified at this time. Screenin:30 Abuse screen: Denies threats or abuse. Nutritional screening: No deficits noted. em Tuberculosis screening: No symptoms or risk factors identified. Fall Risk None identified. Assessment: 10:30 General: Appears in no apparent distress. comfortable, slender, well groomed, well em developed, Behavior is calm, cooperative, appropriate for age. Pain: Complains of pain in abdomen Pain currently is 3 out of 10 on a pain scale. Neuro: Level of Consciousness is awake, alert, obeys commands, Oriented to person, place, time, situation, Appropriate for age. Cardiovascular: Capillary refill < 3 seconds Patient's skin is warm and dry. Respiratory: Airway is patent Respiratory effort is even, unlabored, Respiratory pattern is regular, symmetrical. GI: Abdomen is flat, Bowel sounds present X 4 quads. Abd is soft X 4 quads Abdomen is tender to palpation X 4 quads. Reports cramping, rectal bleeding, hemorrhoids. Derm: Skin is intact, is thin, Skin is pink, warm \T\ dry. Musculoskeletal: Capillary refill < 3 seconds, Range of motion: intact in all extremities. 11:08 Reassessment: finished drinking PO contrast, tolerated well, CT notified. em 12:29 Reassessment: Patient appears in no apparent distress at this time. Patient and/or em family updated on plan of care and expected duration. Pain level reassessed. Patient is alert, oriented x 3, equal unlabored respirations, skin warm/dry/pink. 13:30 Reassessment: Patient appears in no apparent distress at this time. Patient and/or em family updated on plan of care and expected duration. Pain level reassessed. Patient is alert, oriented x 3, equal unlabored respirations, skin warm/dry/pink. 14:48 Reassessment: Patient appears in no apparent distress at this time. Patient and/or em family updated on plan of care and expected duration. Pain level reassessed. Patient is alert, oriented x 3, equal unlabored respirations, skin warm/dry/pink. Vital Signs: 10:18 BP 141 / 90; Pulse 78; Resp 16; Temp 97.5; Pulse Ox 96% on R/A; Weight 45.81 kg; Height iw 5 ft. 2 in. (157.48 cm); Pain 6/10; 11:15 BP 141 / 84; Pulse 96; Resp 16; Pulse Ox 99% on R/A; Pain 3/10; em 13:17 BP 129 / 69; Pulse 93; Resp 16; Pulse Ox 97% on R/A; Pain 2/10; em 14:00 BP 131 / 81; Pulse 84; Resp 16; Pulse Ox 95% on R/A; Pain 3/10; em 10:18 Body Mass Index 18.47 (45.81 kg, 157.48 cm) iw ED Course: 09:50 Patient arrived in ED. fj1 10:17 Triage completed. iw 10:20 Rehan Felix MD is Attending Physician. ma2 10:25 Loco Veronica, GEETHA is Primary Nurse. em 10:30 Patient has correct armband on for positive identification. Placed in gown. Bed in low em position. Call light in reach. Side rails up X2. Pulse ox on. NIBP on. 10:45 Initial lab(s) drawn, by me, sent to lab. T\T\S collected, blood band applied to patient. em Inserted saline lock: 22 gauge in right forearm, using aseptic technique. Blood collected. 11:40 Assisted to bathroom. sg 12:47 Assisted to bathroom. pt reports bright red blood from bottom after wiping, ,Dr.Alzahri arguello notified. 14:48 No provider procedures requiring assistance completed. IV discontinued, intact, em bleeding controlled, No redness/swelling at site. Pressure dressing applied. Administered Medications: 10:45 Drug: Rocephin 1 grams Route: IV; Rate: calculated rate; Site: right forearm; em 10:45 Drug: NS 0.9% 1000 ml Route: IV; Rate: 1 bolus; Site: right forearm; em 12:08 Follow up: Response: No adverse reaction; IV Status: Completed infusion; IV Intake: sg 1000ml 10:48 Drug: Flagyl 500 mg Volume: 100 ml; Route: IVPB; Rate: 200 ml/hr; Infused Over: 30 em mins; Site: right forearm; 12:08 Follow up: Response: No adverse reaction; IV Status: Completed infusion sg 11:14 Not Given (Physician Discretion): Gastrografin Liquid 60 ml PO once em Intake: 12:08 IV: 1000ml; Total: 1000ml. sg Outcome: 14:11 Discharge ordered by MD. becerra 14:48 Discharged to home ambulatory, with family. em 14:48 Condition: good 14:48 Discharge instructions given to patient, family, Instructed on discharge instructions, follow up and referral plans. no drinking with medication, medication usage, Demonstrated understanding of instructions, follow-up care, medications, Prescriptions given X 2. 14:49 Patient left the ED. em Signatures: Ashwin Smith RN RN Loco Veronica RN RN em Williams, Irene, RN RN Rehan Felix MD MD ma2 James, Frank fj1
[2019-05-11 15:18] VITALS: TEMP 97.5
[2019-05-11 15:22] VITALS: BP 131/81; O2SAT 95
== END 2019-05-11 14:49 | disposition home or self-care (01) ==
LOC: ER 09:47
DX: K57.30 Diverticulosis of large intestine without perforation or abscess without bleeding (principal); K57.10 Diverticulosis of small intestine without perforation or abscess without bleeding; I10 Essential (primary) hypertension
CPT/HCPCS: 96365; 85025; 80048; 36415; 86900; 86850; 86901; 80076; 83690; 74177; 96375; 99284; Q9967; J0696; J7030

== ENCOUNTER 2019-07-02 14:38 | Inpatient (IN) | payer OTHER ==
--- NOTE | 2019-07-09 13:58 | R.PREADM ---
SCREENING DATE AND TIME 07/01/2019 15:32 (CDT) ANTICIPATED REHAB ADMISSION DATE 07/03/2019 REFERRING FACILITY [facility] REFERRAL DATE AND TIME 07/01/2019 15:32 (CDT) ACUTE ADMIT DATE 06/21/2019 Previous Rehabilitation(s): No. REFERRING PHYSICIAN DR. VICKI RIVAS REHAB FACILITY [facility] CLINICAL LIAISON Cece Hernandez PHYSICIAN REVIEWER Dr. Ryan Medina M.D. [facility]# [id number] [id number] NAME YAMILKA GIORDANO ADDRESS [address] [place] [address] [place]IP [id number] DATE OF 1935 AGE 84 SSN# [id number] GENDER female MARITAL STATUS RACE white PREF. LANGUAGE (IF NON-ARMENIAN) [place] ADMIT FROM [facility] ([facility]) PRE-HOSPITAL LIVING SETTING 01 - Home (private home/apt. board/care, assisted living, shelter, transitional living) HOME TYPE AND DETAILS Type of home: single family house # of steps within the residence: 0 # of steps to enter the residence: 0 PRE-HOSPITAL LIVING WITH Alone FAMILY SUPPORT Yes PRIMARY FAMILY CONTACT NAME LANEY JOHNS PRIMARY FAMILY CONTACT PHONE PRIMARY FAMILY CONTACT RELATIONSHIP son PHONE PRIMARY FAMILY CONTACT ON ADM.? no IS PRIMARY FAMILY CONTACT AUTH. REP.? no 1ST EMERGENCY CONTACT LANEY JOHNS 1ST CONTACT PHONE 1ST CONTACT RELATIONSHIP son PHONE 1ST CONTACT ON ADM. no IS 1ST CONTACT AUTH. REP.? no PHONE 2ND CONTACT ON ADM.? no PATIENT EMPLOYMENT STATUS Retired (for age) PATIENT EMPLOYER No Employer PAYOR INFORMATION: 1ST PAYOR NAME MEDICARE 1ST PAYOR PHONE 1ST PAYOR INJURY/ILLNESS DUE TO ACCIDENT? No ANOTHER REPUBLICAN RESPONSIBLE? No PRIMARY REHAB/ACUTE DIAGNOSIS: BOWEL RESECTION/BOWEL OBSTRUCTION ONSET DATE 05/25/2019 REHAB IMPAIRMENT CATEGORY (GÓMEZ): 20 Miscellaneous (Misc) does NOT meet 60% rule PRIMARY DIAGNOSIS-RELATED SURGERIES: ROBOTIC LOW ANTERIOR BOWEL RESECTION, W/ COLO-RECTAL ANASTOMOSIS, SPLENIC FLEXURE MOBILIZATION, EN BL OC LEFT OOPHORECTOMY AND INCISIONAL VAC PLACEMENT. IR DRAINAGE OF NEW LARGE PERIPANCREATIC FLUID COLLECTION. PLACEMENT OF PERCUTANEOUS DRAINAGE CATHETER. SUMMARY OF ACUTE HOSPITALIZATION: Pt. is a 84 yo Right-handed white female. On 05/25/2019 she was admitted to [facility] with diagnosis BOWEL RESECTION/BOWEL OBSTRUCTION. Her impairment category is Debility 16 - Debility (16). Pre-morbidly, Pt. was independent/mod-I in Locomotion, Transfers Control, Self-Care, and Endurance; a nd she had good Safety Awareness, Social Cognition, Sphincter Control, Communication, Endurance, and Balance. Currently, she has deficits of Locomotion, Balance, Transfers Control, Self-Care, Endurance, Safety A wareness, Social Cognition, and Sphincter Control. Pt. is now referred to [facility] for acute in-patient rehabilitation in order to maximize patient's functional independence in activities of daily living, strength, ROM, and mobi lity. Patient has realistic goal of being discharged at assistance level 6-Odell to reside at Home with Fam martha/Relatives. Mrs. Yamilka Giordano is an 84 year old female who prior to her current illness lived at home, in a private one story home with no steps, independently. Mrs. Giordano was independent and active both in the community and in the household. Mrs. Giordano was also driving. Mrs. Giordano underwent a scheduled robotic low anterior bowel resection on 05/25/19 with colo-rectal anastomosis, splenic flexure mobilization, en bloc left oophorectomy, and incisional VAC placement and was taken to PACU for recovery. Mrs. Giordano was reintubated due to hypotension in PACU. Pt was extubated 05/27/19. Abdominal CT performed 05/29/19 revealed a high-grade small bowel obstruction. At that time NGT was placed and and TPN was later started 05/30. Subsequent SBFT on 05/31 showed passage of contrast into colon and NGT was removed. A repeat CTAP obtained 06/09 revealed a new large peripancreatic fluid collection and Mrs. Giordano underwent IR drainage 06/10 with positive fluid amylase consistent with pancreas leak. A percutaneous drainage catheter was placed. Mrs. Giordano was discharged to LTAC facility 06/20 to continue TPN for severe protein-caloric malnutrition. At this time Mrs. Giordano was afebrile with normal vitals, making adequate urine output via indwelling catheter, and tolerating a GI soft diet. Patient has now completed her TPN therapy, is medically stable but in need of 24-hour nursing, doctor supervision and oversight while receiving active and ongoing intensive (PT, OT and/or SPT). The patient is reasonably expected to participate in 3 hours of therapy a day/15 hours per week and receive care with intensive interdisciplinary approach. COVID-19 screening performed with nurse caring for patient at [facility]. She denies patient having any new onset of fever, cough, difficulty breathing, sore throat, body aches or non-allergy nasal congestion in the past 24 hours. Patient has not traveled outside of [place] in the past 14 days. Patient has had no contact with someone who has a confirmed diagnosis of or is under investigation for COVID-19 in the past 14 days. PAST MEDICAL HISTORY Feeling of incomplete bladder emptying (R39.14) UTI anxiety HTN Diverticulitis GERD MEDICATION ALLERGIES: No Known Drug Allergies (NKDA) ENVIRONMENTAL ALLERGIES: - Substance Allergies None Known - Other Allergies None Known CODE STATUS: Full code WEIGHT/HEIGHT/BMI: WEIGHT 114 lbs HEIGHT 5' 2" BMI 20.8 DIET: - Diet Type Regular - Diet - Solid Texture Regular - Diet - Liquid Texture Regular - Tube Feed N/A SKIN DIAGRAM: on Abdomen; extent - small; stage - NS(Not Stageable). Treatment - Per Physician's Orders. REVIEW OF SYSTEMS: - Gen Alert and awake Lying in bed No apparent distress Oriented to: person, time, and place - Vital Signs Temperature: 98.1 F SBP/DBP: 136/72 Pulse: 97 Resp: 20 Vital signs stable, afebrile - CVS RRR VITAL SIGNS Temperature: 98.1 F SBP/DBP: 136/72 Pulse: 97 Resp: 20 Vital signs stable, afebrile MEDICATIONS/TREATMENT: Other- See attached MAR (Medication Administration Record). CURRENT SPHINCTER CONTROL: Pre-hospital bladder status: incontinent # of bladder accidents in the last 7 days prior to screenin Pre-hospital bowel status: continent # of bowel accidents in the last 7 days prior to screenin Last Bowel Movement Date: 07/01/2019 CURRENT LOCOMOTION STATUS: distance walked 100 feet QI SCORES: - Self-Care A. Eating 05-Setup or clean-up assistance B. Oral hygiene 05-Setup or clean-up assistance C. Toileting hygiene 01-Dependent E. Shower/bathe self 03-Partial/moderate assistance F. Upper body dressing 04-Supervision or touching assistance G. Lower body dressing 03-Partial/moderate assistance H. Putting on/taking off footwear 02-Substantial/maximal assistance - Mobility A. Roll left and right 04-Supervision or touching assistance B. Sit to lying 04-Supervision or touching assistance C. Lying to sitting on side of bed 04-Supervision or touching assistance D. Sit to stand 04-Supervision or touching assistance E. Chair/tde-nt-wlutq transfer 04-Supervision or touching assistance F. Toilet transfer 04-Supervision or touching assistance G. Car transfer 88-Not attempted due to medical condition or safety concerns I. Walk 10 feet 03-Partial/moderate assistance E. Chair/jhf-lo-eilwg transfer 03-Partial/moderate assistance K. Walk 150 feet 88-Not attempted due to medical condition or safety concerns L. Walking 10 feet on uneven surfaces 88-Not attempted due to medical condition or safety concerns M. 1 step (curb) 88-Not attempted due to medical condition or safety concerns N. 4 steps 88-Not attempted due to medical condition or safety concerns O. 12 steps 88-Not attempted due to medical condition or safety concerns P. Picking up object 88-Not attempted due to medical condition or safety concerns R. Wheel 50 feet with two turns S. Wheel 150 feet - Bladder and Bowel Bladder continence 4-Always incontinent Bowel continence 9-Not rated - Endurance Poor - Balance Poor - Safety Awareness Poor CURRENT FUNC. DEFICITS: Self-Care, Mobility, Endurance, Balance, and Safety Awareness HISTORY OF FALLS. HAS THE PATIENT HAD TWO OR MORE FALLS IN THE PAST YEAR OR ANY FALL WITH INJURY IN T HE PAST YEAR?: Yes PRIOR SURGERY. DID THE PATIENT HAVE MAJOR SURGERY DURING THE 100 DAYS PRIOR TO ADMISSION?: No THERAPY NOTES FROM ACUTE CARE: Attached. SPECIAL NEEDS: - Safety Concerns Skin breakdown precautions needed due to skin breakdown risk PATIENT NEEDS ACTIVE AND ONGOING THERAPEUTIC INTERVENTION OF MULTIPLE THERAPY DISCIPLINES, INCLUDING: - Dietary and Nutrition Adequate Nutrition. Nutritional Education. Nutritional Supplements. PATIENT NEEDS CLOSE MEDICAL SUPERVISION BY A REHABILITATION PHYSICIAN FOR: Coordination of Treatment Team Wound Care PATIENT REQUIRES 24X7 REHAB NURSING FOR MEDICAL AND FUNCTIONAL MGT. OF THE FOLLOWING DEFICITS: Disease Management Medication Management Patient/Family Education Providing Safe Environment Skin Integrity PATIENT REQUIRES INTENSIVE, COORDINATED INTERDISCIPLINARY APPROACH TO REHAB: Arranging Home Equipment/Services Discharge Planning Family Intervention/Training Freezer Unloader/Case Management PATIENT REHAB POTENTIAL: Mickey GIORDANO is able and expected to receive 3 hours of individualized therapy daily on at least 5 of e very 7 days Mickey SALAZARs prognosis for significant practical improvement within a reasonable period of time appea rs Good Expected level of measurable improvement will be of a practical value to Mickey GIORDANO's functional [place] or adaptations to impairments Has a viable Discharge Plan Medically appropriate; condition is sufficiently stable to participate in intensive rehab program DISCHARGE PLAN: - Estimated Length of Stay (days) 13. - Consensus on plan Discharge plan has been discussed with primary caregiver. Patient/Family is in agreement with the konstantin n. Primary caregiver is in agreement with the plan. - Patient/Family Goals Return home independently. - Planned Living Setting Upon Discharge Home, to live alone. RECOMMENDED CARE LEVEL: IRF RECOMMENDATION DETAILS: Recommended Admission to Comprehensive Rehabilitation Program to Increase Functional [place] SCREENER'S COMPLETENESS CONFIRMATION: - Screening Confirmation The patient data collection on this preadmission screening form is finished PHYSICIANS REVIEW AND ADMISSION DETERMINATION Admit - Based on my review of the Pre-Admission Screening results, in my medical judgment and experie nce, I concur with the findings and recommend admission to [facility], as this patient requires an IRF level of care. SIGNATURE PANEL: Clinical Liaison - [electronically] signed by Leeanna Pritchard Medical Housekeeper on 07/09/2019 at 13:52 (C DT) Physician Reviewer - [electronically] signed by Dr. Ryan Medina M.D. on 07/09/2019 at 13:57 (CDT )
--- OUTSIDE RECORDS SUMMARY | 2019-07-09 18:39 | XMS REPORT ---
:1935 Author Organization [facility] t Address [facility] [address] [place] [address] Care Team Providers Name Role Phone DANG Unavailable Unavailable OTHMAN, OTHMAN ALI Unavailable Unavailable SREEDHAR, ABDULLAHI Unavailable Unavailable Problems This patient has no known problems. Allergies, Adverse Reactions, Alerts This patient has no known allergies or adverse reactions. Medications This patient has no known medications. Results Test Description Test Time Test Comments Text Results Atomic Results Result Comments POCT-GLUCOSE METER 2019-06-21 12:33:00 Test Item Value Reference Range Comments POC-GLUCOSE METER (BEAKER) 134 mg/dL 70-110 : ADELITA RENEE AT [address] (test code = 1538) [place], [address]: Op erator/Keno Writer ID = [id number] for PRINCESS KISHAN [id number] 06:02:00 Test Item Value Reference Range Comments PREALBUMIN (BEAKER) (test code = 586) 23 mg/dL 14-45 Ammunition Officer ID - PIAYA [id number] 05:57:00 Test Item Value Reference Range Comments TRIGLYCERIDES (BEAKER) (test code = 540) 37 mg/dL TRIGLYCERIDE REFERENCE RANGELow Risk <150Borderline Risk 150-199High Risk 200-499Very High Risk>=500Operator ID - PIAYA [id number] 05:57:00 Test Item Value Reference Range Comments MAGNESIUM (BEAKER) (test code = 627) 2.2 mg/dL 1.6-2.6 Ammunition Officer ID - PIAYA [id number] 05:57:00 Test Item Value Reference Range Comments PHOSPHORUS (BEAKER) (test code = 604) 2.9 mg/dL 2.3-4.7 Ammunition Officer ID - PIAYA LBASIC METABOLIC [id number] 05:57:00 Test Item Value Reference Range Comments SODIUM (BEAKER) (test 138 meq/L 136-145 code = 381) POTASSIUM (BEAKER) (test 3.5 meq/L 3.5-5.1 code = 379) CHLORIDE (BEAKER) (test 102 meq/L 98-107 code = 382) CO2 (BEAKER) (test code = 29 meq/L 22-29 355) BLOOD UREA NITROGEN 71 mg/dL 7-21 (BEAKER) (test code = 354) CREATININE (BEAKER) (test 0.82 mg/dL 0.57-1.25 code = 358) GLUCOSE RANDOM (BEAKER) 109 mg/dL 70-105 (test code = 652) CALCIUM (BEAKER) (test 8.9 mg/dL 8.4-10.2 code = 697) EGFR (BEAKER) (test code 66 mL/min/1.73 sq m EST IMATED GFR IS NOT = 1092) ACCURATE CREA TININE CLEARANCE IN PRE DICTING GLOMERULAR FILTR ATION RATE. ESTIMATED GFR IS NOT APPLICABLE F OR DIALYSIS PATIENT S. Ammunition Officer ID - PIAYA LHEPATIC FUNCTION [id number] 05:57:00 Test Item Value Reference Range Comments TOTAL PROTEIN (BEAKER) (test code = 770) 4.5 gm/dL 6.0-8.3 ALBUMIN (BEAKER) (test code = 1145) 2.2 g/dL 3.5-5.0 BILIRUBIN TOTAL (BEAKER) (test code = 377) 0.3 mg/dL 0.2-1 .2 BILIRUBIN DIRECT (BEAKER) (test code = 706) 0.1 mg/dL 0.1- 0.5 ALKALINE PHOSPHATASE (BEAKER) (test code = 346) 103 U/L 40-150 AST (SGOT) (BEAKER) (test code = 353) 12 U/L 5-34 ALT (SGPT) (BEAKER) (test code = 347) 13 U/L 6-55 Ammunition Officer ID - PIAYA LC-REACTIVE [id number] 05:57:00 Test Item Value Reference Range Comments C-REACTIVE PROTEIN (BEAKER) (test code = 676) 1.49 mg/dL 0. 00-0.50 Ammunition Officer ID - PIAYA LPT/[id number] 05:47:00 Test Item Value Reference Range Comments PROTIME (BEAKER) (test code = 759) 14.4 seconds 11.9-14.2 INR (BEAKER) (test code = 370) 1.2 <=5.9 PARTIAL THROMBOPLASTIN TIME (BEAKER) (test code 29.3 seconds 22.5-36.0 = 760) Effective 08/27/2018: PT Reference Range ChangeNew: 11.9-14.2 Previous: 11.7- 14.7RECOMMENDED COUMADIN/WARFARIN INR THERAPY RANGESSTANDARD DOSE: 2.0-3.0 Includes: PROPHYLAXIS for venous thrombosis, systemic embolization; TREATMENT for venous thrombosis and/or pulmonary embolus.HIGH RISK: Target INR is2.5-3.5 for patients wiht mechanical heart valves.CBC W/PLT COUNT & AUTO [id number] 05:29:00 Test Item Value Reference Range Comments WHITE BLOOD CELL COUNT (BEAKER) (test code = 9.4 K/ L 3.5 -10.5 775) RED BLOOD CELL COUNT (BEAKER) (test code = 761) 2.83 M/ L 3.93-5.22 HEMOGLOBIN (BEAKER) (test code = 410) 8.2 GM/DL 11.2-15.7 HEMATOCRIT (BEAKER) (test code = 411) 26.1 % 34.1-44.9 MEAN CORPUSCULAR VOLUME (BEAKER) (test code = 92.2 fL 79 .4-94.8 753) MEAN CORPUSCULAR HEMOGLOBIN (BEAKER) (test code 29.0 pg 25.6-32.2 = 751) MEAN CORPUSCULAR HEMOGLOBIN CONC (BEAKER) (test 31.4 GM/DL 32.2-35.5 code = 752) RED CELL DISTRIBUTION WIDTH (BEAKER) (test code 15.0 % 11.7-14.4 = 412) PLATELET COUNT (BEAKER) (test code = 756) 272 K/CU MM 150-45 0 MEAN PLATELET VOLUME (BEAKER) (test code = 754) 12.3 fL 9.4-12.3 NUCLEATED RED BLOOD CELLS (BEAKER) (test code = 0 /100 WBC 0-0 413) NEUTROPHILS RELATIVE PERCENT (BEAKER) (test code 72 % = 429) LYMPHOCYTES RELATIVE PERCENT (BEAKER) (test code 11 % = 430) MONOCYTES RELATIVE PERCENT (BEAKER) (test code = 9 % 431) EOSINOPHILS RELATIVE PERCENT (BEAKER) (test code 3 % = 432) BASOPHILS RELATIVE PERCENT (BEAKER) (test code = 0 % 437) NEUTROPHILS ABSOLUTE COUNT (BEAKER) (test code = 6.78 K/ L 1.56-6.13 670) LYMPHOCYTES ABSOLUTE COUNT (BEAKER) (test code = 1.06 K/ L 1.18-3.74 414) MONOCYTES ABSOLUTE COUNT (BEAKER) (test code = 0.85 K/ L 0 .24-0.36 415) EOSINOPHILS ABSOLUTE COUNT (BEAKER) (test code = 0.27 K/ L 0.04-0.36 416) BASOPHILS ABSOLUTE COUNT (BEAKER) (test code = 0.04 K/ L 0 .01-0.08 417) IMMATURE GRANULOCYTES-RELATIVE PERCENT (BEAKER) 4 % 0-1 (test code = 2801) POCT-GLUCOSE [id number] 05:23:00 Test Item Value Reference Range Comments POC-GLUCOSE METER (BEAKER) 112 mg/dL 70-110 : ADELITA RENEE AT [address] (test code = 1538) [facility], [address]: Ammunition Officer/Technic shanthi ID = [id number] for CHIKA, PADMINI NANCY POCT-GLUCOSE [id number] 23:11:00 Test Item Value Reference Range Comments POC-GLUCOSE METER (BEAKER) 121 mg/dL 70-110 : ADELITA RENEE AT [address] (test code = 1538) [facility], [address]: Ammunition Officer/Technic shanthi ID = [id number] for CHIKA, PADMINI NANCY POCT-GLUCOSE [id number] 17:33:00 Test Item Value Reference Range Comments POC-GLUCOSE METER (BEAKER) 136 mg/dL 70-110 : ADELITA RENEE AT [address] (test code = 1538) [facility], [address]: Ammunition Officer/Technic shanthi ID = [id number] for ALVARENGA, ISABE L POCT-GLUCOSE [id number] 12:24:00 Test Item Value Reference Range Comments POC-GLUCOSE METER (BEAKER) 119 mg/dL 70-110 : ADELITA RENEE AT [address] (test code = 1538) [facility], [address]: Ammunition Officer/Technic shanthi ID = [id number] for KATTY ALVARENGA CBC W/PLT COUNT & AUTO [id number] 10:43:00 Test Item Value Reference Range Comments WHITE BLOOD CELL COUNT (BEAKER) (test code = 10.5 K/ L 3.5 -10.5 775) RED BLOOD CELL COUNT (BEAKER) (test code = 761) 2.78 M/ L 3.93-5.22 HEMOGLOBIN (BEAKER) (test code = 410) 8.3 GM/DL 11.2-15.7 HEMATOCRIT (BEAKER) (test code = 411) 25.8 % 34.1-44.9 MEAN CORPUSCULAR VOLUME (BEAKER) (test code = 92.8 fL 79 .4-94.8 753) MEAN CORPUSCULAR HEMOGLOBIN (BEAKER) (test code 29.9 pg 25.6-32.2 = 751) MEAN CORPUSCULAR HEMOGLOBIN CONC (BEAKER) (test 32.2 GM/DL 32.2-35.5 code = 752) RED CELL DISTRIBUTION WIDTH (BEAKER) (test code 15.0 % 11.7-14.4 = 412) PLATELET COUNT (BEAKER) (test code = 756) 297 K/CU MM 150-45 0 MEAN PLATELET VOLUME (BEAKER) (test code = 754) 12.5 fL 9.4-12.3 NUCLEATED RED BLOOD CELLS (BEAKER) (test code = 0 /100 WBC 0-0 413) (CELLAVISION MANUAL DIFF)2019-06-20 10:43:00 Test Item Value Reference Range Comments NEUTROPHILS - REL (CELLAVISION)(BEAKER) (test code 86 % = 2816) LYMPHOCYTES - REL (CELLAVISION)(BEAKER) (test code 6 % = 2817) MONOCYTES - REL (CELLAVISION)(BEAKER) (test code = 3 % 2818) EOSINOPHILS - REL (CELLAVISION)(BEAKER) (test code 1 % = 2819) BANDS - REL (CELLAVISION)(BEAKER) (test code = 4 % 0 -10 2826) NEUTROPHILS - ABS (CELLAVISION)(BEAKER) (test code 9.03 K/ul 1.56-6.13 = 2830) LYMPHOCYTES - ABS (CELLAVISION)(BEAKER) (test code 0.63 K/ul 1.18-3.74 = 2831) MONOCYTES - ABS (CELLAVISION)(BEAKER) (test code = 0.32 K/uL 0.24-0.36 2832) EOSINOPHILS - ABS (CELLAVISION)(BEAKER) (test code 0.11 K/uL 0.04-0.36 = 2834) BANDS - ABS (CELLAVISION)(BEAKER) (test code = 0.42 K/uL 0 .00-0.80 2840) TOTAL COUNTED (BEAKER) (test code = 1351) 100 WBC MORPHOLOGY (BEAKER) (test code = 487) Normal LARGE PLT(BEAKER) (test code = 2156) Present POLYCHROMATOPHILLIC RBCS(BEAKER) (test code = 478) 1+ few ARTIFACT (CELLAVISION)(BEAKER) (test code = 3432) Present PLATELET CONCENTRATION (CELLAVISION)(BEAKER) (test Adequate code = 3438) Ammunition Officer ID - Trudi Tidwell comments: Slide comments:[id number] 05:52:00 Test Item Value Reference Range Comments PROTIME (BEAKER) (test code = 759) 14.3 seconds 11.9-14.2 INR (BEAKER) (test code = 370) 1.1 <=5.9 PARTIAL THROMBOPLASTIN TIME (BEAKER) (test code 31.1 seconds 22.5-36.0 = 760) Effective 08/27/2018: PT Reference Range ChangeNew: 11.9-14.2 Previous: 11.7- 14.7RECOMMENDED COUMADIN/WARFARIN INR THERAPY RANGESSTANDARD DOSE: 2.0-3.0 Includes: PROPHYLAXIS for venous thrombosis, systemic embolization; TREATMENT for venous thrombosis and/or pulmonary embolus.HIGH RISK: Target INR is2.5-3.5 for patients wiht mechanical heart valves.[id number] 05:46:00 Test Item Value Reference Range Comments PHOSPHORUS (BEAKER) (test code = 604) 2.8 mg/dL 2.3-4.7 Ammunition Officer ID - YSOSI [id number] 05:46:00 Test Item Value Reference Range Comments MAGNESIUM (BEAKER) (test code = 627) 2.2 mg/dL 1.6-2.6 Ammunition Officer ID - YOSSI MBASIC METABOLIC [id number] 05:46:00 Test Item Value Reference Range Comments SODIUM (BEAKER) (test 137 meq/L 136-145 code = 381) POTASSIUM (BEAKER) (test 3.5 meq/L 3.5-5.1 code = 379) CHLORIDE (BEAKER) (test 102 meq/L 98-107 code = 382) CO2 (BEAKER) (test code = 29 meq/L 22-29 355) BLOOD UREA NITROGEN 74 mg/dL 7-21 (BEAKER) (test code = 354) CREATININE (BEAKER) (test 0.79 mg/dL 0.57-1.25 code = 358) GLUCOSE RANDOM (BEAKER) 125 mg/dL 70-105 (test code = 652) CALCIUM (BEAKER) (test 8.7 mg/dL 8.4-10.2 code = 697) EGFR (BEAKER) (test code 69 mL/min/1.73 sq m EST IMATED GFR IS NOT = 1092) ACCURATE CREA TININE CLEARANCE IN PRE DICTING GLOMERULAR FILTR ATION RATE. ESTIMATED GFR IS NOT APPLICABLE F OR DIALYSIS PATIENT S. Ammunition Officer ID - YOSSI MPOCT-GLUCOSE [id number] 05:42:00 Test Item Value Reference Range Comments POC-GLUCOSE METER (BEAKER) 141 mg/dL 70-110 : ADELITA RENEE AT [facility] [address] [facility] (test code = 1538) [facility], [address]: Ammunition Officer/Technic shanthi ID = [id number] for PADMINI FARRA POCT-GLUCOSE [id number] 23:49:00 Test Item Value Reference Range Comments POC-GLUCOSE METER (BEAKER) 123 mg/dL 70-110 : ADELITA RENEE AT [facility] [address] [facility] (test code = 1538) [facility], [address]: Ammunition Officer/Technic shanthi ID = [id number] for PADMINI FARR NANCY POCT-GLUCOSE [id number] 16:59:00 Test Item Value Reference Range Comments POC-GLUCOSE METER (BEAKER) 136 mg/dL 70-110 : ADELITA RENEE AT [place] [id number] [facility] (test code = 1538) [facility], [address]: Ammunition Officer/Technic shanthi ID = [id number] for BELKIS PEREZ BLOOD [id number] 12:19:00 Test Item Value Reference Range Comments CULTURE (BEAKER) (test code = 1095) No growth in 5 days POCT-GLUCOSE [id number] 11:29:00 Test Item Value Reference Range Comments POC-GLUCOSE METER (BEAKER) 110 mg/dL 70-110 : ADELITA RENEE AT [facility] [address] (test code = 1538) [facility], [address]: Ammunition Officer/Technic shanthi ID = [id number] for BELKIS PEREZ CBC W/PLT COUNT & AUTO [id number] 08:59:00 Test Item Value Reference Range Comments WHITE BLOOD CELL COUNT (BEAKER) (test code = 14.4 K/ L 3.5 -10.5 775) RED BLOOD CELL COUNT (BEAKER) (test code = 761) 2.92 M/ L 3.93-5.22 HEMOGLOBIN (BEAKER) (test code = 410) 8.5 GM/DL 11.2-15.7 HEMATOCRIT (BEAKER) (test code = 411) 27.3 % 34.1-44.9 MEAN CORPUSCULAR VOLUME (BEAKER) (test code = 93.5 fL 79 .4-94.8 753) MEAN CORPUSCULAR HEMOGLOBIN (BEAKER) (test code 29.1 pg 25.6-32.2 = 751) MEAN CORPUSCULAR HEMOGLOBIN CONC (BEAKER) (test 31.1 GM/DL 32.2-35.5 code = 752) RED CELL DISTRIBUTION WIDTH (BEAKER) (test code 15.1 % 11.7-14.4 = 412) PLATELET COUNT (BEAKER) (test code = 756) 335 K/CU MM 150-45 0 MEAN PLATELET VOLUME (BEAKER) (test code = 754) 12.6 fL 9.4-12.3 NUCLEATED RED BLOOD CELLS (BEAKER) (test code = 0 /100 WBC 0-0 413) (CELLAVISION MANUAL DIFF)2019-06-19 08:59:00 Test Item Value Reference Range Comments NEUTROPHILS - REL (CELLAVISION)(BEAKER) (test 84 % code = 2816) LYMPHOCYTES - REL (CELLAVISION)(BEAKER) (test 9 % code = 2817) MONOCYTES - REL (CELLAVISION)(BEAKER) (test code 4 % = 2818) EOSINOPHILS - REL (CELLAVISION)(BEAKER) (test 1 % code = 2819) METAMYELOCYTES - REL (CELLAVISION)(BEAKER) (test 1 % 0-0 code = 2821) BANDS - REL (CELLAVISION)(BEAKER) (test code = 1 % 0 -10 2826) NEUTROPHILS - ABS (CELLAVISION)(BEAKER) (test 12.10 K/ul 1. 56-6.13 code = 2830) LYMPHOCYTES - ABS (CELLAVISION)(BEAKER) (test 1.30 K/ul 1. 18-3.74 code = 2831) MONOCYTES - ABS (CELLAVISION)(BEAKER) (test code 0.58 K/uL 0.24-0.36 = 2832) EOSINOPHILS - ABS (CELLAVISION)(BEAKER) (test 0.14 K/uL 0. 04-0.36 code = 2834) METAMYELOCYTES - ABS (CELLAVISION)(BEAKER) (test 0.14 K/uL 0.00-0.00 code = 2836) BANDS - ABS (CELLAVISION)(BEAKER) (test code = 0.14 K/uL 0 .00-0.80 2840) TOTAL COUNTED (BEAKER) (test code = 1351) 100 SMUDGE CELLS (BEAKER) (test code = 1371) Present GIANT PLATELETS (BEAKER) (test code = 313) Present ANISOCYTOSIS (BEAKER) (test code = 961) 1+ few MICROCYTES (BEAKER) (test code = 965) 1+ few PLATELET CONCENTRATION (CELLAVISION)(BEAKER) Adequate (test code = 3438) Ammunition Officer ID - Julio Santos comments: Slide comments:POCT-GLUCOSE [id number] 06:10:00 Test Item Value Reference Range Comments POC-GLUCOSE METER (BEAKER) 134 mg/dL 70-110 : ADELITA RENEE AT [facility] [address] (test code = 1538) [place], [address]: Ammunition Officer/Technic shanthi ID = [id number] for CHIKA, PADMINI NANCY [id number] 04:42:00 Test Item Value Reference Range Comments MAGNESIUM (BEAKER) (test code = 2.1 mg/dL 1.6-2.6 Specimen slightly hemolyzed 627) Ammunition Officer JUAN SY [id number] 04:42:00 Test Item Value Reference Range Comments PHOSPHORUS (BEAKER) (test code 2.7 mg/dL 2.3-4.7 S pecimen slightly hemolyzed = 604) Ammunition Officer JUAN SY MBASIC METABOLIC [id number] 04:42:00 Test Item Value Reference Range Comments SODIUM (BEAKER) (test 137 meq/L 136-145 code = 381) POTASSIUM (BEAKER) (test 3.9 meq/L 3.5-5.1 Specime n slightly code = 379) hemolyzed CHLORIDE (BEAKER) (test 103 meq/L 98-107 code = 382) CO2 (BEAKER) (test code = 26 meq/L 22-29 355) BLOOD UREA NITROGEN 74 mg/dL 7-21 (BEAKER) (test code = 354) CREATININE (BEAKER) (test 0.87 mg/dL 0.57-1.25 Specim en slightly code = 358) hemolyzed GLUCOSE RANDOM (BEAKER) 109 mg/dL 70-105 (test code = 652) CALCIUM (BEAKER) (test 8.7 mg/dL 8.4-10.2 code = 697) EGFR (BEAKER) (test code 62 mL/min/1.73 sq m EST IMATED GFR IS NOT = 1092) ACCURATE CREA TININE CLEARANCE IN PRE DICTING GLOMERULAR FILTR ATION RATE. ESTIMATED GFR IS NOT APPLICABLE F OR DIALYSIS PATIENT S. Ammunition Officer ID Roderick SY MPT/[id number] 04:41:00 Test Item Value Reference Range Comments PROTIME (BEAKER) (test code = 759) 14.3 seconds 11.9-14.2 INR (BEAKER) (test code = 370) 1.1 <=5.9 PARTIAL THROMBOPLASTIN TIME (BEAKER) (test code 32.1 seconds 22.5-36.0 = 760) Effective 08/27/2018: PT Reference Range ChangeNew: 11.9-14.2 Previous: 11.7- 14.7RECOMMENDED COUMADIN/WARFARIN INR THERAPY RANGESSTANDARD DOSE: 2.0-3.0 Includes: PROPHYLAXIS for venous thrombosis, systemic embolization; TREATMENT for venous thrombosis and/or pulmonary embolus.HIGH RISK: Target INR is2.5-3.5 for patients wiht mechanical heart valves.POCT-GLUCOSE [id number] 01:13:00 Test Item Value Reference Range Comments POC-GLUCOSE METER (BEAKER) 141 mg/dL 70-110 : ADELITA RENEE AT [facility] [address] [facility] (test code = 1538) [facility], [address]: Ammunition Officer/Technic shanthi ID = [id number] for PADMINI FARR POCT-GLUCOSE [id number] 18:19:00 Test Item Value Reference Range Comments POC-GLUCOSE METER (BEAKER) 130 mg/dL 70-110 : ADELITA RENEE AT [address] (test code = 1538) [facility], [address]: Ammunition Officer/Technic shanthi ID = [id number] for KATTY ALVARENGA CT, ABDOMEN - PELVIS, PANCREAS [id number] 13:25:00Anesthesia:->None FINAL REPORT ABDOMINAL AND PELVIS CT DATED 06/18/2019 COMPARISON: June 11, 2019 CLINICAL INFORMATION: s/p robotic LAR c/b pancreatic fistula TECHNIQUE: Axial images of the abdomen and pelvis were obtained from diaphragm to the pubic symphysis without GI or intravenous contrast. This exam was performed according to our departmental dose-optimization program, which includes automated exposure control, adjustment of the mA and/or kV according to patient size and/or use of interactive reconstruction technique. COMMENT: There is small bilateral pleural effusion with bibasilar subsegmental atelectasis. A large hiatal hernia is present. There is interval decrease in size of the pseudocysts the region of the tail of the pancreas, left lateroconal fascia, and left pararenal space for drainage catheter placement. Pancreas is normal in caliber. No pancreatic duct dilatation seen.Liver and spleen are normal in size without focal abnormality. Gallbladder is contracted. No gallstone or biliary dilatation is noted. There adrenals are unremarkable. Both kidneys are normal in size. Hyperdense lesions are seen in both kidneys consistent with hemorrhagic renal cyst and is stable since prior examination. Diverticular disease is seen in the large bowel without diverticulitis. The small bowel is normal in caliber. Appendix is not visualized. A left renal hernia is seen with herniation a segment of the bowel. Uterus is surgically absent. Both ovaries are not seen. IMPRESSION: 1. Interval decrease the in size of a cirrhosis is seen in the upper abdomen.2. Bilateral pleural effusion with bibasilar subsegmental atelectasis.3. Hiatal hernia.4. Hemorrhagic bilateral renal cysts.5. Di verticulosis without diverticulitis. Signed: Daphne Alford MDReport Verified Date/Time: 06/18/2019 13:25:11 Reading Location: [facility] B1 C013Y CT Body Reading Room -GLUCOSE [id number] 12:13:00 Test Item Value Reference Range Comments POC-GLUCOSE METER (BEAKER) 181 mg/dL 70-110 : ADELITA RENEE AT [facility] [address] [facility] (test code = 1538) [facility], [address]: Ammunition Officer/Technic shanthi ID = [id number] for KATTY ALVARENGA L CBC W/PLT COUNT & AUTO [id number] 10:15:00 Test Item Value Reference Range Comments WHITE BLOOD CELL COUNT (BEAKER) (test code = 13.7 K/ L 3.5 -10.5 775) RED BLOOD CELL COUNT (BEAKER) (test code = 761) 3.11 M/ L 3.93-5.22 HEMOGLOBIN (BEAKER) (test code = 410) 8.8 GM/DL 11.2-15.7 HEMATOCRIT (BEAKER) (test code = 411) 28.5 % 34.1-44.9 MEAN CORPUSCULAR VOLUME (BEAKER) (test code = 91.6 fL 79 .4-94.8 753) MEAN CORPUSCULAR HEMOGLOBIN (BEAKER) (test code 28.3 pg 25.6-32.2 = 751) MEAN CORPUSCULAR HEMOGLOBIN CONC (BEAKER) (test 30.9 GM/DL 32.2-35.5 code = 752) RED CELL DISTRIBUTION WIDTH (BEAKER) (test code 15.1 % 11.7-14.4 = 412) PLATELET COUNT (BEAKER) (test code = 756) 356 K/CU MM 150-45 0 MEAN PLATELET VOLUME (BEAKER) (test code = 754) 12.0 fL 9.4-12.3 NUCLEATED RED BLOOD CELLS (BEAKER) (test code = 0 /100 WBC 0-0 413) (CELLAVISION MANUAL DIFF)2019-06-18 10:15:00 Test Item Value Reference Range Comments NEUTROPHILS - REL (CELLAVISION)(BEAKER) (test 88 % code = 2816) LYMPHOCYTES - REL (CELLAVISION)(BEAKER) (test 5 % code = 2817) MONOCYTES - REL (CELLAVISION)(BEAKER) (test code 1 % = 2818) EOSINOPHILS - REL (CELLAVISION)(BEAKER) (test 3 % code = 2819) BASOPHILS - REL (CELLAVISION)(BEAKER) (test code 1 % = 2820) MYELOCYTES - REL (CELLAVISION)(BEAKER) (test code 2 % 0-0 = 2822) NEUTROPHILS - ABS (CELLAVISION)(BEAKER) (test 12.06 K/ul 1. 56-6.13 code = 2830) LYMPHOCYTES - ABS (CELLAVISION)(BEAKER) (test 0.69 K/ul 1. 18-3.74 code = 2831) MONOCYTES - ABS (CELLAVISION)(BEAKER) (test code 0.14 K/uL 0.24-0.36 = 2832) EOSINOPHILS - ABS (CELLAVISION)(BEAKER) (test 0.41 K/uL 0. 04-0.36 code = 2834) BASOPHILS - ABS (CELLAVISION)(BEAKER) (test code 0.14 K/uL 0.01-0.08 = 2835) MYELOCYTES-ABS (CELLAVISION)(BEAKER) (test code = 0.27 K/uL 0.00-0.00 2837) TOTAL COUNTED (BEAKER) (test code = 1351) 100 PLT MORPHOLOGY (BEAKER) (test code = 486) Normal TOXIC GRANULATION (BEAKER) (test code = 771) Present HYPOCHROMIA (BEAKER) (test code = 963) 1+ few ANISOCYTOSIS (BEAKER) (test code = 961) 1+ few ARTIFACT (CELLAVISION)(BEAKER) (test code = 3432) Present PLATELET CONCENTRATION (CELLAVISION)(BEAKER) Adequate (test code = 3438) Ammunition Officer ID - Yanet Huertas comments: Slide comments:[id number] 07:45:00 Test Item Value Reference Range Comments PHOSPHORUS (BEAKER) (test code = 604) 2.8 mg/dL 2.3-4.7 Ammunition Officer ID - NELLIE [id number] 07:45:00 Test Item Value Reference Range Comments MAGNESIUM (BEAKER) (test code = 627) 2.1 mg/dL 1.6-2.6 Ammunition Officer ID - NELLIE FBASIC METABOLIC [id number] 07:45:00 Test Item Value Reference Range Comments SODIUM (BEAKER) (test 134 meq/L 136-145 code = 381) POTASSIUM (BEAKER) (test 3.7 meq/L 3.5-5.1 code = 379) CHLORIDE (BEAKER) (test 102 meq/L 98-107 code = 382) CO2 (BEAKER) (test code = 25 meq/L 22-29 355) BLOOD UREA NITROGEN 68 mg/dL 7-21 (BEAKER) (test code = 354) CREATININE (BEAKER) (test 0.79 mg/dL 0.57-1.25 code = 358) GLUCOSE RANDOM (BEAKER) 150 mg/dL 70-105 (test code = 652) CALCIUM (BEAKER) (test 8.6 mg/dL 8.4-10.2 code = 697) EGFR (BEAKER) (test code 69 mL/min/1.73 sq m EST IMATED GFR IS NOT = 1092) ACCURATE CREA TININE CLEARANCE IN PRE DICTING GLOMERULAR FILTR ATION RATE. ESTIMATED GFR IS NOT APPLICABLE F OR DIALYSIS PATIENT S. Ammunition Officer ID - NELLIE [id number] 06:24:00 Test Item Value Reference Range Comments PROTIME (BEAKER) (test code = 759) 14.6 seconds 11.9-14.2 INR (BEAKER) (test code = 370) 1.2 <=5.9 PARTIAL THROMBOPLASTIN TIME (BEAKER) (test code 31.2 seconds 22.5-36.0 = 760) Effective 08/27/2018: PT Reference Range ChangeNew: 11.9-14.2 Previous: 11.7- 14.7RECOMMENDED COUMADIN/WARFARIN INR THERAPY RANGESSTANDARD DOSE: 2.0-3.0 Includes: PROPHYLAXIS for venous thrombosis, systemic embolization; TREATMENT for venous thrombosis and/or pulmonary embolus.HIGH RISK: Target INR is2.5-3.5 for patients wiht mechanical heart valves.POCT-GLUCOSE [id number] 06:16:00 Test Item Value Reference Range Comments POC-GLUCOSE METER (BEAKER) 143 mg/dL 70-110 : ADELITA RENEE AT [address] (test code = 1538) [facility], [address]: Ammunition Officer/Technic shanthi ID = [id number] for GREGOR ZHANG POCT-GLUCOSE [id number] 01:18:00 Test Item Value Reference Range Comments POC-GLUCOSE METER (BEAKER) 156 mg/dL 70-110 : ADELITA RENEE AT [address] (test code = 1538) [facility], [address]: Ammunition Officer/Technic shanthi ID = [id number] for GREGOR ZHANG ANAEROBIC [id number] 19:12:00 Test Item Value Reference Range Comments CULTURE (BEAKER) (test code = 1095) No anaerobes isolated POCT-GLUCOSE [id number] 18:03:00 Test Item Value Reference Range Comments POC-GLUCOSE METER (BEAKER) 110 mg/dL 70-110 : ADELITA RENEE AT [address] (test code = 1538) [facility], [address]: Ammunition Officer/Technic shanthi ID = [id number] for Paul Avila POCT-GLUCOSE [id number] 12:42:00 Test Item Value Reference Range Comments POC-GLUCOSE METER (BEAKER) 183 mg/dL 70-110 : ADELITA RENEE AT [address] (test code = 1538) [facility], [address]: Ammunition Officer/Technic shanthi ID = [id number] for Paul Avila VANCOMYCIN LEVEL, [id number] 11:55:00 Test Item Value Reference Range Comments VANCOMYCIN TROUGH (BEAKER) (test code = 522) 19.4 ug/mL 10. 0-20.0 Ammunition Officer ID - MARY [facility] W/PLT COUNT & AUTO [id number] 10:14:00 Test Item Value Reference Range Comments WHITE BLOOD CELL COUNT (BEAKER) (test code = 16.5 K/ L 3.5 -10.5 775) RED BLOOD CELL COUNT (BEAKER) (test code = 761) 3.21 M/ L 3.93-5.22 HEMOGLOBIN (BEAKER) (test code = 410) 9.2 GM/DL 11.2-15.7 HEMATOCRIT (BEAKER) (test code = 411) 29.5 % 34.1-44.9 MEAN CORPUSCULAR VOLUME (BEAKER) (test code = 91.9 fL 79 .4-94.8 753) MEAN CORPUSCULAR HEMOGLOBIN (BEAKER) (test code 28.7 pg 25.6-32.2 = 751) MEAN CORPUSCULAR HEMOGLOBIN CONC (BEAKER) (test 31.2 GM/DL 32.2-35.5 code = 752) RED CELL DISTRIBUTION WIDTH (BEAKER) (test code 15.2 % 11.7-14.4 = 412) PLATELET COUNT (BEAKER) (test code = 756) 370 K/CU MM 150-45 0 MEAN PLATELET VOLUME (BEAKER) (test code = 754) 12.0 fL 9.4-12.3 NUCLEATED RED BLOOD CELLS (BEAKER) (test code = 0 /100 WBC 0-0 413) (CELLAVISION MANUAL DIFF)2019-06-17 10:14:00 Test Item Value Reference Range Comments NEUTROPHILS - REL (CELLAVISION)(BEAKER) (test 85 % code = 2816) LYMPHOCYTES - REL (CELLAVISION)(BEAKER) (test 4 % code = 2817) MONOCYTES - REL (CELLAVISION)(BEAKER) (test code 6 % = 2818) BASOPHILS - REL (CELLAVISION)(BEAKER) (test code 1 % = 2820) METAMYELOCYTES - REL (CELLAVISION)(BEAKER) (test 3 % 0-0 code = 2821) MYELOCYTES - REL (CELLAVISION)(BEAKER) (test code 1 % 0-0 = 2822) NEUTROPHILS - ABS (CELLAVISION)(BEAKER) (test 14.03 K/ul 1. 56-6.13 code = 2830) LYMPHOCYTES - ABS (CELLAVISION)(BEAKER) (test 0.66 K/ul 1. 18-3.74 code = 2831) MONOCYTES - ABS (CELLAVISION)(BEAKER) (test code 0.99 K/uL 0.24-0.36 = 2832) BASOPHILS - ABS (CELLAVISION)(BEAKER) (test code 0.17 K/uL 0.01-0.08 = 2835) METAMYELOCYTES - ABS (CELLAVISION)(BEAKER) (test 0.50 K/uL 0.00-0.00 code = 2836) MYELOCYTES-ABS (CELLAVISION)(BEAKER) (test code = 0.17 K/uL 0.00-0.00 2837) TOTAL COUNTED (BEAKER) (test code = 1351) 100 PLT MORPHOLOGY (BEAKER) (test code = 486) Normal TOXIC GRANULATION (BEAKER) (test code = 771) Present HYPOCHROMIA (BEAKER) (test code = 963) 1+ few ANISOCYTOSIS (BEAKER) (test code = 961) 1+ few ARTIFACT (CELLAVISION)(BEAKER) (test code = 3432) Present PLATELET CONCENTRATION (CELLAVISION)(BEAKER) Adequate (test code = 3438) Ammunition Officer ID - Yanet Huertas comments: Slide comments:POCT-GLUCOSE [id number] 05:38:00 Test Item Value Reference Range Comments POC-GLUCOSE METER (BEAKER) 150 mg/dL 70-110 : ADELITA RENEE AT [facility] [address] [facility] (test code = 1538) [facility], [address]: Ammunition Officer/Technic shanthi ID = [id number] for Parson, I lcibeth [id number] 05:32:00 Test Item Value Reference Range Comments MAGNESIUM (BEAKER) (test code = 2.0 mg/dL 1.6-2.6 Specimen slightly hemolyzed 627) Ammunition Officer ID - YOSSI [id number] 05:32:00 Test Item Value Reference Range Comments PHOSPHORUS (BEAKER) (test code 2.5 mg/dL 2.3-4.7 S pecimen slightly hemolyzed = 604) Ammunition Officer ID - YOSSI MBASIC METABOLIC [id number] 05:32:00 Test Item Value Reference Range Comments SODIUM (BEAKER) (test 138 meq/L 136-145 code = 381) POTASSIUM (BEAKER) (test 4.1 meq/L 3.5-5.1 Specime n slightly code = 379) hemolyzed CHLORIDE (BEAKER) (test 107 meq/L 98-107 code = 382) CO2 (BEAKER) (test code = 26 meq/L 22-29 355) BLOOD UREA NITROGEN 67 mg/dL 7-21 (BEAKER) (test code = 354) CREATININE (BEAKER) (test 0.83 mg/dL 0.57-1.25 Specim en slightly code = 358) hemolyzed GLUCOSE RANDOM (BEAKER) 112 mg/dL 70-105 (test code = 652) CALCIUM (BEAKER) (test 9.0 mg/dL 8.4-10.2 code = 697) EGFR (BEAKER) (test code 65 mL/min/1.73 sq m EST IMATED GFR IS NOT = 1092) ACCURATE CREA TININE CLEARANCE IN PRE DICTING GLOMERULAR FILTR ATION RATE. ESTIMATED GFR IS NOT APPLICABLE F OR DIALYSIS PATIENT S. Ammunition Officer ID - YOSSI MPT/[id number] 04:58:00 Test Item Value Reference Range Comments PROTIME (BEAKER) (test code = 759) 14.6 seconds 11.9-14.2 INR (BEAKER) (test code = 370) 1.2 <=5.9 PARTIAL THROMBOPLASTIN TIME (BEAKER) (test code 31.1 seconds 22.5-36.0 = 760) Effective 08/27/2018: PT Reference Range ChangeNew: 11.9-14.2 Previous: 11.7- 14.7RECOMMENDED COUMADIN/WARFARIN INR THERAPY RANGESSTANDARD DOSE: 2.0-3.0 Includes: PROPHYLAXIS for venous thrombosis, systemic embolization; TREATMENT for venous thrombosis and/or pulmonary embolus.HIGH RISK: Target INR is2.5-3.5 for patients wiht mechanical heart valves.POCT-GLUCOSE [id number] 00:03:00 Test Item Value Reference Range Comments POC-GLUCOSE METER (BEAKER) 149 mg/dL 70-110 : ADELITA RENEE AT [facility] [address] (test code = 1538) [place], [address]: Ammunition Officer/Technic shanthi ID = [id number] for Parson, I lcibeth POCT-GLUCOSE [id number] 17:50:00 Test Item Value Reference Range Comments POC-GLUCOSE METER (BEAKER) 158 mg/dL 70-110 : ADELITA RIOS AT [facility] [address] (test code = 1538) [facility], [address]: Ammunition Officer/Technic shanthi ID = [id number] for PRIN MARY GOODEN POCT-GLUCOSE [id number] 13:03:00 Test Item Value Reference Range Comments POC-GLUCOSE METER (BEAKER) 146 mg/dL 70-110 : ADELITA RIOS AT [facility] [address] (test code = 1538) [facility], [address]: Ammunition Officer/Technic shanthi ID = [id number] for PRIN MARY GOODEN CBC W/PLT COUNT & AUTO [id number] 09:53:00 Test Item Value Reference Range Comments WHITE BLOOD CELL COUNT (BEAKER) (test code = 21.2 K/ L 3.5 -10.5 775) RED BLOOD CELL COUNT (BEAKER) (test code = 761) 3.04 M/ L 3.93-5.22 HEMOGLOBIN (BEAKER) (test code = 410) 9.0 GM/DL 11.2-15.7 HEMATOCRIT (BEAKER) (test code = 411) 28.2 % 34.1-44.9 MEAN CORPUSCULAR VOLUME (BEAKER) (test code = 92.8 fL 79 .4-94.8 753) MEAN CORPUSCULAR HEMOGLOBIN (BEAKER) (test code 29.6 pg 25.6-32.2 = 751) MEAN CORPUSCULAR HEMOGLOBIN CONC (BEAKER) (test 31.9 GM/DL 32.2-35.5 code = 752) RED CELL DISTRIBUTION WIDTH (BEAKER) (test code 15.5 % 11.7-14.4 = 412) PLATELET COUNT (BEAKER) (test code = 756) 352 K/CU MM 150-45 0 MEAN PLATELET VOLUME (BEAKER) (test code = 754) 12.2 fL 9.4-12.3 NUCLEATED RED BLOOD CELLS (BEAKER) (test code = 0 /100 WBC 0-0 413) (CELLAVISION MANUAL DIFF)2019-06-16 09:53:00 Test Item Value Reference Range Comments NEUTROPHILS - REL (CELLAVISION)(BEAKER) (test 84 % code = 2816) LYMPHOCYTES - REL (CELLAVISION)(BEAKER) (test 5 % code = 2817) MONOCYTES - REL (CELLAVISION)(BEAKER) (test code 4 % = 2818) EOSINOPHILS - REL (CELLAVISION)(BEAKER) (test 2 % code = 2819) METAMYELOCYTES - REL (CELLAVISION)(BEAKER) (test 2 % 0-0 code = 2821) MYELOCYTES - REL (CELLAVISION)(BEAKER) (test code 2 % 0-0 = 2822) BANDS - REL (CELLAVISION)(BEAKER) (test code = 1 % 0 -10 2826) NEUTROPHILS - ABS (CELLAVISION)(BEAKER) (test 17.81 K/ul 1. 56-6.13 code = 2830) LYMPHOCYTES - ABS (CELLAVISION)(BEAKER) (test 1.06 K/ul 1. 18-3.74 code = 2831) MONOCYTES - ABS (CELLAVISION)(BEAKER) (test code 0.85 K/uL 0.24-0.36 = 2832) EOSINOPHILS - ABS (CELLAVISION)(BEAKER) (test 0.42 K/uL 0. 04-0.36 code = 2834) METAMYELOCYTES - ABS (CELLAVISION)(BEAKER) (test 0.42 K/uL 0.00-0.00 code = 2836) MYELOCYTES-ABS (CELLAVISION)(BEAKER) (test code = 0.42 K/uL 0.00-0.00 2837) BANDS - ABS (CELLAVISION)(BEAKER) (test code = 0.21 K/uL 0 .00-0.80 2840) TOTAL COUNTED (BEAKER) (test code = 1351) 100 WBC MORPHOLOGY (BEAKER) (test code = 487) Normal GIANT PLATELETS (BEAKER) (test code = 313) Present POLYCHROMATOPHILLIC RBCS(BEAKER) (test code = 1+ few 478) HYPOCHROMIA (BEAKER) (test code = 963) 1+ few ANISOCYTOSIS (BEAKER) (test code = 961) 1+ few OVALOCYTES (BEAKER) (test code = 477) 1+ few ARTIFACT (CELLAVISION)(BEAKER) (test code = 3432) Present PLATELET CONCENTRATION (CELLAVISION)(BEAKER) Adequate (test code = 3438) Ammunition Officer ID - Nellie Soto comments: Slide comments:POCT-GLUCOSE METER 2019-06-16 06:15:00 Test Item Value Reference Range Comments POC-GLUCOSE METER (BEAKER) 166 mg/dL 70-110 : ADELITA RENEE AT [facility] [address] (test code = 1538) [place], [address]: Ammunition Officer/Technic shanthi ID = [id number] for HOLGUIN, STAC Y [id number] 05:25:00 Test Item Value Reference Range Comments PHOSPHORUS (BEAKER) (test code = 604) 2.8 mg/dL 2.3-4.7 Ammunition Officer ID - YOSSI [id number] 05:25:00 Test Item Value Reference Range Comments MAGNESIUM (BEAKER) (test code = 627) 2.2 mg/dL 1.6-2.6 Ammunition Officer ID - YOSSI MBASIC METABOLIC [id number] 05:25:00 Test Item Value Reference Range Comments SODIUM (BEAKER) (test 136 meq/L 136-145 code = 381) POTASSIUM (BEAKER) (test 3.6 meq/L 3.5-5.1 code = 379) CHLORIDE (BEAKER) (test 104 meq/L 98-107 code = 382) CO2 (BEAKER) (test code = 23 meq/L 22-29 355) BLOOD UREA NITROGEN 67 mg/dL 7-21 (BEAKER) (test code = 354) CREATININE (BEAKER) (test 0.83 mg/dL 0.57-1.25 code = 358) GLUCOSE RANDOM (BEAKER) 165 mg/dL 70-105 (test code = 652) CALCIUM (BEAKER) (test 8.6 mg/dL 8.4-10.2 code = 697) EGFR (BEAKER) (test code 65 mL/min/1.73 sq m EST IMATED GFR IS NOT = 1092) ACCURATE CREA TININE CLEARANCE IN PRE DICTING GLOMERULAR FILTR ATION RATE. ESTIMATED GFR IS NOT APPLICABLE F OR DIALYSIS PATIENT S. Ammunition Officer ID - YOSSI MPT/[id number] 04:37:00 Test Item Value Reference Range Comments PROTIME (BEAKER) (test code = 759) 14.6 seconds 11.9-14.2 INR (BEAKER) (test code = 370) 1.2 <=5.9 PARTIAL THROMBOPLASTIN TIME (BEAKER) (test code 31.4 seconds 22.5-36.0 = 760) Effective 08/27/2018: PT Reference Range ChangeNew: 11.9-14.2 Previous: 11.7- 14.7RECOMMENDED COUMADIN/WARFARIN INR THERAPY RANGESSTANDARD DOSE: 2.0-3.0 Includes: PROPHYLAXIS for venous thrombosis, systemic embolization; TREATMENT for venous thrombosis and/or pulmonary embolus.HIGH RISK: Target INR is2.5-3.5 for patients wiht mechanical heart valves.POCT-GLUCOSE [id number] 23:59:00 Test Item Value Reference Range Comments POC-GLUCOSE METER (BEAKER) 192 mg/dL 70-110 : ADELITA ROIS AT [address] (test code = 1538) [facility], [address]: Ammunition Officer/Technic shanthi ID = [id number] for DB HOLGUIN Y POCT-GLUCOSE [id number] 18:36:00 Test Item Value Reference Range Comments POC-GLUCOSE METER (BEAKER) 170 mg/dL 70-110 : ADELITA RENEE AT [address] (test code = 1538) [facility], [address]: Ammunition Officer/Technic shanthi ID = [id number] for PRIN MARY GOODEN POCT-GLUCOSE [id number] 12:08:00 Test Item Value Reference Range Comments POC-GLUCOSE METER (BEAKER) 171 mg/dL 70-110 : ADELITA RIOS AT [address] (test code = 1538) [facility], [address]: Ammunition Officer/Technic shanthi ID = [id number] for PRIN MARY GOODEN CBC W/PLT COUNT & AUTO [id number] 10:15:00 Test Item Value Reference Range Comments WHITE BLOOD CELL COUNT (BEAKER) (test code = 20.5 K/ L 3.5 -10.5 775) RED BLOOD CELL COUNT (BEAKER) (test code = 761) 3.32 M/ L 3.93-5.22 HEMOGLOBIN (BEAKER) (test code = 410) 9.2 GM/DL 11.2-15.7 HEMATOCRIT (BEAKER) (test code = 411) 30.3 % 34.1-44.9 MEAN CORPUSCULAR VOLUME (BEAKER) (test code = 91.3 fL 79 .4-94.8 753) MEAN CORPUSCULAR HEMOGLOBIN (BEAKER) (test code 27.7 pg 25.6-32.2 = 751) MEAN CORPUSCULAR HEMOGLOBIN CONC (BEAKER) (test 30.4 GM/DL 32.2-35.5 code = 752) RED CELL DISTRIBUTION WIDTH (BEAKER) (test code 15.7 % 11.7-14.4 = 412) PLATELET COUNT (BEAKER) (test code = 756) 402 K/CU MM 150-45 0 MEAN PLATELET VOLUME (BEAKER) (test code = 754) 12.3 fL 9.4-12.3 NUCLEATED RED BLOOD CELLS (BEAKER) (test code = 0 /100 WBC 0-0 413) (CELLAVISION MANUAL DIFF)2019-06-15 10:15:00 Test Item Value Reference Range Comments NEUTROPHILS - REL (CELLAVISION)(BEAKER) (test 90 % code = 2816) LYMPHOCYTES - REL (CELLAVISION)(BEAKER) (test 2 % code = 2817) MONOCYTES - REL (CELLAVISION)(BEAKER) (test code 3 % = 2818) MYELOCYTES - REL (CELLAVISION)(BEAKER) (test code 1 % 0-0 = 2822) BANDS - REL (CELLAVISION)(BEAKER) (test code = 2 % 0 -10 2826) ATYPICAL LYMPHOCYTES - REL (CELLAVISION)(BEAKER) 2 % 0-0 (test code = 2829) NEUTROPHILS - ABS (CELLAVISION)(BEAKER) (test 18.45 K/ul 1. 56-6.13 code = 2830) LYMPHOCYTES - ABS (CELLAVISION)(BEAKER) (test 0.41 K/ul 1. 18-3.74 code = 2831) MONOCYTES - ABS (CELLAVISION)(BEAKER) (test code 0.62 K/uL 0.24-0.36 = 2832) MYELOCYTES-ABS (CELLAVISION)(BEAKER) (test code = 0.21 K/uL 0.00-0.00 2837) BANDS - ABS (CELLAVISION)(BEAKER) (test code = 0.41 K/uL 0 .00-0.80 2840) ATYPICAL LYMPHOCYTES - ABS (CELLAVISION)(BEAKER) 0.41 K/uL 0.00-0.00 (test code = 2858) TOTAL COUNTED (BEAKER) (test code = 1351) 100 RBC MORPHOLOGY (BEAKER) (test code = 762) Normal WBC MORPHOLOGY (BEAKER) (test code = 487) Normal PLT MORPHOLOGY (BEAKER) (test code = 486) Normal ANISOCYTOSIS (BEAKER) (test code = 961) 1+ few MICROCYTES (BEAKER) (test code = 965) 1+ few ARTIFACT (CELLAVISION)(BEAKER) (test code = 3432) Present PLATELET CONCENTRATION (CELLAVISION)(BEAKER) Adequate (test code = 3438) Ammunition Officer ID Roderick Rosario OverholtUser comments: Slide comments:[id number] 07:03:00 Test Item Value Reference Range Comments MAGNESIUM (BEAKER) (test code = 2.3 mg/dL 1.6-2.6 Specimen slightly hemolyzed 627) Ammunition Officer ID Roderick GOULD [id number] 07:03:00 Test Item Value Reference Range Comments PHOSPHORUS (BEAKER) (test code 3.2 mg/dL 2.3-4.7 S pecimen slightly hemolyzed = 604) Ammunition Officer ID Roderick GOULD FBASIC METABOLIC [id number] 07:03:00 Test Item Value Reference Range Comments SODIUM (BEAKER) (test 134 meq/L 136-145 code = 381) POTASSIUM (BEAKER) (test 3.8 meq/L 3.5-5.1 Specime n slightly code = 379) hemolyzed CHLORIDE (BEAKER) (test 102 meq/L 98-107 code = 382) CO2 (BEAKER) (test code = 23 meq/L 22-29 355) BLOOD UREA NITROGEN 60 mg/dL 7-21 (BEAKER) (test code = 354) CREATININE (BEAKER) (test 0.83 mg/dL 0.57-1.25 Specim en slightly code = 358) hemolyzed GLUCOSE RANDOM (BEAKER) 195 mg/dL 70-105 (test code = 652) CALCIUM (BEAKER) (test 8.8 mg/dL 8.4-10.2 code = 697) EGFR (BEAKER) (test code 65 mL/min/1.73 sq m EST IMATED GFR IS NOT = 1092) ACCURATE CREA TININE CLEARANCE IN PRE DICTING GLOMERULAR FILTR ATION RATE. ESTIMATED GFR IS NOT APPLICABLE F OR DIALYSIS PATIENT S. Ammunition Officer ID - NELLIE FVANCOMYCIN LEVEL, [id number] 06:33:00 Test Item Value Reference Range Comments VANCOMYCIN RANDOM (AFIA) (test code = 523) 18.2 ug/mL Reference Range: No NormalsOperator ID - NELLIE FPT/[id number] 06:32:00 Test Item Value Reference Range Comments PROTIME (BEAKER) (test code = 759) 14.5 seconds 11.9-14.2 INR (BEAKER) (test code = 370) 1.2 <=5.9 PARTIAL THROMBOPLASTIN TIME (ROSELINEAKER) (test code 31.2 seconds 22.5-36.0 = 760) Effective 08/27/2018: PT Reference Range ChangeNew: 11.9-14.2 Previous: 11.7- 14.7RECOMMENDED COUMADIN/WARFARIN INR THERAPY RANGESSTANDARD DOSE: 2.0-3.0 Includes: PROPHYLAXIS for venous thrombosis, systemic embolization; TREATMENT for venous thrombosis and/or pulmonary embolus.HIGH RISK: Target INR is2.5-3.5 for patients wiht mechanical heart valves.POCT-GLUCOSE [id number] 06:22:00 Test Item Value Reference Range Comments POC-GLUCOSE METER (BEAKER) 182 mg/dL 70-110 : ADELITA RIOS AT [address] (test code = 1538) [facility], [address]: Ammunition Officer/Technic shanthi ID = [id number] for HOLGUIN, STAC Y POCT-GLUCOSE [id number] 00:16:00 Test Item Value Reference Range Comments POC-GLUCOSE METER (BEAKER) 183 mg/dL 70-110 : ADELITA RIOS AT [address] (test code = 1538) [facility], [address]: Ammunition Officer/Technic shanthi ID = [id number] for HOLGUIN, STAC Y BLOOD [id number] 19:00:00 Test Item Value Reference Range Comments CULTURE (BEAKER) (test code = 1095) No growth in 5 days POCT-GLUCOSE [id number] 17:50:00 Test Item Value Reference Range Comments POC-GLUCOSE METER (BEAKER) 151 mg/dL 70-110 : ADELITA RENEE AT [facility] [address] [facility] (test code = 1538) [facility], [address]: Ammunition Officer/Technic shanthi ID = [id number] for PRIN MARY GOODEN BODY FLUID CULTURE + GRAM [id number] 14:34:00 Test Item Value Reference Range Comments CULTURE (BEAKER) (test code = No growth 1095) GRAM STAIN RESULT (BEAKER) (test No White blood cells seen code = 1123) GRAM STAIN RESULT (BEAKER) (test No organisms seen code = 17183) POCT-GLUCOSE [id number] 13:21:00 Test Item Value Reference Range Comments POC-GLUCOSE METER (BEAKER) 143 mg/dL 70-110 : ADELITA RENEE AT [facility] [address] [facility] (test code = 1538) [facility], [address]: Ammunition Officer/Technic shanthi ID = [id number] for PRIN MARY GOODEN CBC W/PLT COUNT & AUTO [id number] 08:06:00 Test Item Value Reference Range Comments WHITE BLOOD CELL COUNT (BEAKER) (test code = 22.6 K/ L 3.5 -10.5 775) RED BLOOD CELL COUNT (BEAKER) (test code = 761) 3.24 M/ L 3.93-5.22 HEMOGLOBIN (BEAKER) (test code = 410) 9.5 GM/DL 11.2-15.7 HEMATOCRIT (BEAKER) (test code = 411) 29.1 % 34.1-44.9 MEAN CORPUSCULAR VOLUME (BEAKER) (test code = 89.8 fL 79 .4-94.8 753) MEAN CORPUSCULAR HEMOGLOBIN (BEAKER) (test code 29.3 pg 25.6-32.2 = 751) MEAN CORPUSCULAR HEMOGLOBIN CONC (BEAKER) (test 32.6 GM/DL 32.2-35.5 code = 752) RED CELL DISTRIBUTION WIDTH (BEAKER) (test code 16.1 % 11.7-14.4 = 412) PLATELET COUNT (BEAKER) (test code = 756) 408 K/CU MM 150-45 0 MEAN PLATELET VOLUME (BEAKER) (test code = 754) 12.3 fL 9.4-12.3 NUCLEATED RED BLOOD CELLS (BEAKER) (test code = 0 /100 WBC 0-0 413) (CELLAVISION MANUAL DIFF)2019-06-14 08:06:00 Test Item Value Reference Range Comments NEUTROPHILS - REL (CELLAVISION)(BEAKER) (test 78 % code = 2816) LYMPHOCYTES - REL (CELLAVISION)(BEAKER) (test 6 % code = 2817) MONOCYTES - REL (CELLAVISION)(BEAKER) (test code 5 % = 2818) METAMYELOCYTES - REL (CELLAVISION)(BEAKER) (test 6 % 0-0 code = 2821) MYELOCYTES - REL (CELLAVISION)(BEAKER) (test 1 % 0-0 code = 2822) PROMYELOCYTES - REL (CELLAVSION)(BEAKER) (test 1 % 0 -0 code = 2825) BANDS - REL (CELLAVISION)(BEAKER) (test code = 2 % 0 -10 2826) ATYPICAL LYMPHOCYTES - REL (CELLAVISION)(BEAKER) 1 % 0-0 (test code = 2829) NEUTROPHILS - ABS (CELLAVISION)(BEAKER) (test 17.63 K/ul 1. 56-6.13 code = 2830) LYMPHOCYTES - ABS (CELLAVISION)(BEAKER) (test 1.36 K/ul 1. 18-3.74 code = 2831) MONOCYTES - ABS (CELLAVISION)(BEAKER) (test code 1.13 K/uL 0.24-0.36 = 2832) METAMYELOCYTES - ABS (CELLAVISION)(BEAKER) (test 1.36 K/uL 0.00-0.00 code = 2836) MYELOCYTES-ABS (CELLAVISION)(BEAKER) (test code 0.23 K/uL 0.00-0.00 = 2837) PROMYELOCYTES - ABS (CELLAVISION)(BEAKER) (test 0.23 K/uL 0.00-0.00 code = 2838) BANDS - ABS (CELLAVISION)(BEAKER) (test code = 0.45 K/uL 0 .00-0.80 2840) ATYPICAL LYMPHOCYTES - ABS (CELLAVISION)(BEAKER) 0.23 K/uL 0.00-0.00 (test code = 2858) TOTAL COUNTED (BEAKER) (test code = 1351) 100 SMUDGE CELLS (BEAKER) (test code = 1371) Present GIANT PLATELETS (BEAKER) (test code = 313) Present POLYCHROMATOPHILLIC RBCS(BEAKER) (test code = 1+ few 478) ANISOCYTOSIS (BEAKER) (test code = 961) 1+ few POIKILOCYTES (BEAKER) (test code = 966) 2+ moderate CHOLO CELLS (BEAKER) (test code = 474) 1+ few PLATELET CONCENTRATION (CELLAVISION)(BEAKER) Adequate (test code = 3438) Ammunition Officer ID - Gaby Ashley comments: Slide comments:[id number] 05:45:00 Test Item Value Reference Range Comments PREALBUMIN (BEAKER) (test code = 586) 14 mg/dL 14-45 Ammunition Officer ID - YOSSI [id number] 05:41:00 Test Item Value Reference Range Comments TRIGLYCERIDES (BEAKER) (test code = 540) 75 mg/dL TRIGLYCERIDE REFERENCE RANGELow Risk <150Borderline Risk 150-199High Risk 200-499Very High Risk>=500Operator ID - YOSSI [id number] 05:41:00 Test Item Value Reference Range Comments MAGNESIUM (BEAKER) (test code = 627) 2.4 mg/dL 1.6-2.6 Ammunition Officer ID - YOSSI [id number] 05:41:00 Test Item Value Reference Range Comments PHOSPHORUS (BEAKER) (test code = 604) 2.6 mg/dL 2.3-4.7 Ammunition Officer ID - YOSSI MBASIC METABOLIC [id number] 05:41:00 Test Item Value Reference Range Comments SODIUM (BEAKER) (test 133 meq/L 136-145 code = 381) POTASSIUM (BEAKER) (test 3.5 meq/L 3.5-5.1 code = 379) CHLORIDE (BEAKER) (test 102 meq/L 98-107 code = 382) CO2 (BEAKER) (test code = 21 meq/L 22-29 355) BLOOD UREA NITROGEN 53 mg/dL 7-21 (BEAKER) (test code = 354) CREATININE (BEAKER) (test 0.78 mg/dL 0.57-1.25 code = 358) GLUCOSE RANDOM (BEAKER) 152 mg/dL 70-105 (test code = 652) CALCIUM (BEAKER) (test 8.6 mg/dL 8.4-10.2 code = 697) EGFR (BEAKER) (test code 70 mL/min/1.73 sq m EST IMATED GFR IS NOT = 1092) ACCURATE CREA TININE CLEARANCE IN PRE DICTING GLOMERULAR FILTR ATION RATE. ESTIMATED GFR IS NOT APPLICABLE F OR DIALYSIS PATIENT S. Ammunition Officer ID - YOSSI MHEPATIC FUNCTION [id number] 05:41:00 Test Item Value Reference Range Comments TOTAL PROTEIN (BEAKER) (test code = 770) 4.7 gm/dL 6.0-8.3 ALBUMIN (BEAKER) (test code = 1145) 2.1 g/dL 3.5-5.0 BILIRUBIN TOTAL (BEAKER) (test code = 377) 0.5 mg/dL 0.2-1 .2 BILIRUBIN DIRECT (BEAKER) (test code = 706) 0.2 mg/dL 0.1- 0.5 ALKALINE PHOSPHATASE (BEAKER) (test code = 346) 130 U/L 40-150 AST (SGOT) (BEAKER) (test code = 353) 26 U/L 5-34 ALT (SGPT) (BEAKER) (test code = 347) 42 U/L 6-55 Ammunition Officer ID - YOSSI MC-REACTIVE [id number] 05:41:00 Test Item Value Reference Range Comments C-REACTIVE PROTEIN (BEAKER) (test code = 676) 9.67 mg/dL 0. 00-0.50 Ammunition Officer ID - YOSSI [id number]/[id number] 05:26:00 Test Item Value Reference Range Comments PROTIME (BEAKER) (test code = 759) 14.8 seconds 11.9-14.2 INR (BEAKER) (test code = 370) 1.2 <=5.9 PARTIAL THROMBOPLASTIN TIME (BEAKER) (test code 32.8 seconds 22.5-36.0 = 760) Effective 08/27/2018: PT Reference Range ChangeNew: 11.9-14.2 Previous: 11.7- 14.7RECOMMENDED COUMADIN/WARFARIN INR THERAPY RANGESSTANDARD DOSE: 2.0-3.0 Includes: PROPHYLAXIS for venous thrombosis, systemic embolization; TREATMENT for venous thrombosis and/or pulmonary embolus.HIGH RISK: Target INR is2.5-3.5 for patients wiht mechanical heart valves.VANCOMYCIN LEVEL, [id number] 23:10:00 Test Item Value Reference Range Comments VANCOMYCIN TROUGH (BEAKER) (test code = 522) 30.2 ug/mL 10. 0-20.0 Ammunition Officer ID - JORDYN EPOCT-GLUCOSE [id number] 18:33:00 Test Item Value Reference Range Comments POC-GLUCOSE METER (BEAKER) 171 mg/dL 70-110 : ADELITA RENEE AT [address] (test code = 1538) [facility], [address]: Ammunition Officer/Technic shanthi ID = [id number] for Diana Mcduffie POCT-GLUCOSE [id number] 12:56:00 Test Item Value Reference Range Comments POC-GLUCOSE METER (BEAKER) 163 mg/dL 70-110 : ADELITA RENEE AT [address] (test code = 1538) [facility], [address]: Ammunition Officer/Technic shanthi ID = [id number] for Diana Mcduffie CBC W/PLT COUNT & AUTO [id number] 09:40:00 Test Item Value Reference Range Comments WHITE BLOOD CELL COUNT (BEAKER) (test code = 22.5 K/ L 3.5 -10.5 775) RED BLOOD CELL COUNT (BEAKER) (test code = 761) 3.31 M/ L 3.93-5.22 HEMOGLOBIN (BEAKER) (test code = 410) 9.5 GM/DL 11.2-15.7 HEMATOCRIT (BEAKER) (test code = 411) 29.1 % 34.1-44.9 MEAN CORPUSCULAR VOLUME (BEAKER) (test code = 87.9 fL 79 .4-94.8 753) MEAN CORPUSCULAR HEMOGLOBIN (BEAKER) (test code 28.7 pg 25.6-32.2 = 751) MEAN CORPUSCULAR HEMOGLOBIN CONC (BEAKER) (test 32.6 GM/DL 32.2-35.5 code = 752) RED CELL DISTRIBUTION WIDTH (BEAKER) (test code 16.1 % 11.7-14.4 = 412) PLATELET COUNT (BEAKER) (test code = 756) 428 K/CU MM 150-45 0 MEAN PLATELET VOLUME (BEAKER) (test code = 754) 12.0 fL 9.4-12.3 NUCLEATED RED BLOOD CELLS (BEAKER) (test code = 0 /100 WBC 0-0 413) (CELLAVISION MANUAL DIFF)[id number] 09:40:00 Test Item Value Reference Range Comments NEUTROPHILS - REL (CELLAVISION)(BEAKER) (test 81 % code = 2816) LYMPHOCYTES - REL (CELLAVISION)(BEAKER) (test 2 % code = 2817) MONOCYTES - REL (CELLAVISION)(BEAKER) (test code 5 % = 2818) EOSINOPHILS - REL (CELLAVISION)(BEAKER) (test 1 % code = 2819) METAMYELOCYTES - REL (CELLAVISION)(BEAKER) (test 5 % 0-0 code = 2821) MYELOCYTES - REL (CELLAVISION)(BEAKER) (test code 3 % 0-0 = 2822) BANDS - REL (CELLAVISION)(BEAKER) (test code = 2 % 0 -10 2826) ATYPICAL LYMPHOCYTES - REL (CELLAVISION)(BEAKER) 1 % 0-0 (test code = 2829) NEUTROPHILS - ABS (CELLAVISION)(BEAKER) (test 18.23 K/ul 1. 56-6.13 code = 2830) LYMPHOCYTES - ABS (CELLAVISION)(BEAKER) (test 0.45 K/ul 1. 18-3.74 code = 2831) MONOCYTES - ABS (CELLAVISION)(BEAKER) (test code 1.13 K/uL 0.24-0.36 = 2832) EOSINOPHILS - ABS (CELLAVISION)(BEAKER) (test 0.23 K/uL 0. 04-0.36 code = 2834) METAMYELOCYTES - ABS (CELLAVISION)(BEAKER) (test 1.13 K/uL 0.00-0.00 code = 2836) MYELOCYTES-ABS (CELLAVISION)(BEAKER) (test code = 0.68 K/uL 0.00-0.00 2837) BANDS - ABS (CELLAVISION)(BEAKER) (test code = 0.45 K/uL 0 .00-0.80 2840) ATYPICAL LYMPHOCYTES - ABS (CELLAVISION)(BEAKER) 0.23 K/uL 0.00-0.00 (test code = 2858) TOTAL COUNTED (BEAKER) (test code = 1351) 100 PLT MORPHOLOGY (BEAKER) (test code = 486) Normal TOXIC GRANULATION (BEAKER) (test code = 771) Present POLYCHROMATOPHILLIC RBCS(BEAKER) (test code = 1+ few 478) ANISOCYTOSIS (BEAKER) (test code = 961) 1+ few ARTIFACT (CELLAVISION)(BEAKER) (test code = 3432) Present PLATELET CONCENTRATION (CELLAVISION)(BEAKER) Adequate (test code = 3438) Ammunition Officer ID - Yanet Huertas comments: Slide comments:POCT-GLUCOSE [id number] 07:07:00 Test Item Value Reference Range Comments POC-GLUCOSE METER (BEAKER) 162 mg/dL 70-110 : ADELITA RENEE AT [facility] [address] [facility] (test code = 1538) [facility], [address]: Ammunition Officer/Technic shanthi ID = [id number] for GREGOR ZHANG [id number] 05:35:00 Test Item Value Reference Range Comments PHOSPHORUS (BEAKER) (test code = 604) 2.5 mg/dL 2.3-4.7 Ammunition Officer ID - YOSSI [id number] 05:35:00 Test Item Value Reference Range Comments MAGNESIUM (BEAKER) (test code = 627) 2.0 mg/dL 1.6-2.6 Ammunition Officer ID - YOSSI MBASIC METABOLIC [id number] 05:35:00 Test Item Value Reference Range Comments SODIUM (BEAKER) (test 135 meq/L 136-145 code = 381) POTASSIUM (BEAKER) (test 3.6 meq/L 3.5-5.1 code = 379) CHLORIDE (BEAKER) (test 107 meq/L 98-107 code = 382) CO2 (BEAKER) (test code = 20 meq/L 22-29 355) BLOOD UREA NITROGEN 52 mg/dL 7-21 (BEAKER) (test code = 354) CREATININE (BEAKER) (test 0.79 mg/dL 0.57-1.25 code = 358) GLUCOSE RANDOM (BEAKER) 165 mg/dL 70-105 (test code = 652) CALCIUM (BEAKER) (test 8.4 mg/dL 8.4-10.2 code = 697) EGFR (BEAKER) (test code 69 mL/min/1.73 sq m EST IMATED GFR IS NOT = 1092) ACCURATE CREA TININE CLEARANCE IN PRE DICTING GLOMERULAR FILTR ATION RATE. ESTIMATED GFR IS NOT APPLICABLE F OR DIALYSIS PATIENT S. Ammunition Officer ID - YOSSI MPT/[id number] 05:32:00 Test Item Value Reference Range Comments PROTIME (BEAKER) (test code = 759) 14.9 seconds 11.9-14.2 INR (BEAKER) (test code = 370) 1.2 <=5.9 PARTIAL THROMBOPLASTIN TIME (BEAKER) (test code 30.6 seconds 22.5-36.0 = 760) Effective 08/27/2018: PT Reference Range ChangeNew: 11.9-14.2 Previous: 11.7- 14.7RECOMMENDED COUMADIN/WARFARIN INR THERAPY RANGESSTANDARD DOSE: 2.0-3.0 Includes: PROPHYLAXIS for venous thrombosis, systemic embolization; TREATMENT for venous thrombosis and/or pulmonary embolus.HIGH RISK: Target INR is2.5-3.5 for patients wiht mechanical heart valves.POCT-GLUCOSE [id number] 23:54:00 Test Item Value Reference Range Comments POC-GLUCOSE METER (BEAKER) 175 mg/dL 70-110 : ADELITA RIOS AT [address] (test code = 1538) [facility], [address]: Ammunition Officer/Technic shanthi ID = [id number] for GREGOR ZHANG POCT-GLUCOSE [id number] 18:25:00 Test Item Value Reference Range Comments POC-GLUCOSE METER (BEAKER) 182 mg/dL 70-110 : ADELITA RENEE AT [facility] [address] [facility] (test code = 1538) [facility], [address]: Ammunition Officer/Technic shanthi ID = [id number] for KATTY ALVARENGA POCT-GLUCOSE [id number] 13:26:00 Test Item Value Reference Range Comments POC-GLUCOSE METER (BEAKER) 176 mg/dL 70-110 : ADELITA RENEE AT [facility] [address] (test code = 1538) [place], [address]: Ammunition Officer/Technic shanthi ID = [id number] for BELKIS PEREZ CBC W/PLT COUNT & AUTO [id number] 12:41:00 Test Item Value Reference Range Comments WHITE BLOOD CELL COUNT (BEAKER) (test code = 23.4 K/ L 3.5 -10.5 775) RED BLOOD CELL COUNT (BEAKER) (test code = 761) 2.33 M/ L 3.93-5.22 HEMOGLOBIN (BEAKER) (test code = 410) 6.7 GM/DL 11.2-15.7 HEMATOCRIT (BEAKER) (test code = 411) 21.3 % 34.1-44.9 MEAN CORPUSCULAR VOLUME (BEAKER) (test code = 91.4 fL 79 .4-94.8 753) MEAN CORPUSCULAR HEMOGLOBIN (BEAKER) (test code 28.8 pg 25.6-32.2 = 751) MEAN CORPUSCULAR HEMOGLOBIN CONC (BEAKER) (test 31.5 GM/DL 32.2-35.5 code = 752) RED CELL DISTRIBUTION WIDTH (BEAKER) (test code 17.1 % 11.7-14.4 = 412) PLATELET COUNT (BEAKER) (test code = 756) 401 K/CU MM 150-45 0 MEAN PLATELET VOLUME (BEAKER) (test code = 754) 12.2 fL 9.4-12.3 NUCLEATED RED BLOOD CELLS (BEAKER) (test code = 0 /100 WBC 0-0 413) (CELLAVISION MANUAL DIFF)2019-06-12 12:41:00 Test Item Value Reference Range Comments NEUTROPHILS - REL (CELLAVISION)(BEAKER) (test 80 % code = 2816) LYMPHOCYTES - REL (CELLAVISION)(BEAKER) (test 2 % code = 2817) MONOCYTES - REL (CELLAVISION)(BEAKER) (test code 7 % = 2818) EOSINOPHILS - REL (CELLAVISION)(BEAKER) (test 1 % code = 2819) METAMYELOCYTES - REL (CELLAVISION)(BEAKER) (test 2 % 0-0 code = 2821) MYELOCYTES - REL (CELLAVISION)(BEAKER) (test code 6 % 0-0 = 2822) BANDS - REL (CELLAVISION)(BEAKER) (test code = 2 % 0 -10 2826) NEUTROPHILS - ABS (CELLAVISION)(BEAKER) (test 18.72 K/ul 1. 56-6.13 code = 2830) LYMPHOCYTES - ABS (CELLAVISION)(BEAKER) (test 0.47 K/ul 1. 18-3.74 code = 2831) MONOCYTES - ABS (CELLAVISION)(BEAKER) (test code 1.64 K/uL 0.24-0.36 = 2832) EOSINOPHILS - ABS (CELLAVISION)(BEAKER) (test 0.23 K/uL 0. 04-0.36 code = 2834) METAMYELOCYTES - ABS (CELLAVISION)(BEAKER) (test 0.47 K/uL 0.00-0.00 code = 2836) MYELOCYTES-ABS (CELLAVISION)(BEAKER) (test code = 1.40 K/uL 0.00-0.00 2837) BANDS - ABS (CELLAVISION)(BEAKER) (test code = 0.47 K/uL 0 .00-0.80 2840) TOTAL COUNTED (BEAKER) (test code = 1351) 100 RBC MORPHOLOGY (BEAKER) (test code = 762) Normal SMUDGE CELLS (BEAKER) (test code = 1371) Present GIANT PLATELETS (BEAKER) (test code = 313) Present ARTIFACT (CELLAVISION)(BEAKER) (test code = 3432) Present PLATELET CONCENTRATION (CELLAVISION)(BEAKER) Adequate (test code = 3438) Ammunition Officer ID - Gaby Ashley comments: Slide comments:[id number] 06:07:00 Test Item Value Reference Range Comments PHOSPHORUS (BEAKER) (test code = 604) 3.1 mg/dL 2.3-4.7 Ammunition Officer ID - YOSSI [id number] 06:07:00 Test Item Value Reference Range Comments MAGNESIUM (BEAKER) (test code = 627) 2.3 mg/dL 1.6-2.6 Ammunition Officer ID Roderick SY MBASIC METABOLIC [id number] 06:07:00 Test Item Value Reference Range Comments SODIUM (BEAKER) (test 136 meq/L 136-145 code = 381) POTASSIUM (BEAKER) (test 4.0 meq/L 3.5-5.1 code = 379) CHLORIDE (BEAKER) (test 108 meq/L 98-107 code = 382) CO2 (BEAKER) (test code = 21 meq/L 22-29 355) BLOOD UREA NITROGEN 55 mg/dL 7-21 (BEAKER) (test code = 354) CREATININE (BEAKER) (test 0.88 mg/dL 0.57-1.25 code = 358) GLUCOSE RANDOM (BEAKER) 193 mg/dL 70-105 (test code = 652) CALCIUM (BEAKER) (test 8.2 mg/dL 8.4-10.2 code = 697) EGFR (BEAKER) (test code 61 mL/min/1.73 sq m EST IMATED GFR IS NOT = 1092) ACCURATE CREA TININE CLEARANCE IN PRE DICTING GLOMERULAR FILTR ATION RATE. ESTIMATED GFR IS NOT APPLICABLE F OR DIALYSIS PATIENT S. Ammunition Officer ID - YOSSI MPT/[id number] 05:57:00 Test Item Value Reference Range Comments PROTIME (BEAKER) (test code = 759) 15.2 seconds 11.9-14.2 INR (BEAKER) (test code = 370) 1.2 <=5.9 PARTIAL THROMBOPLASTIN TIME (BEAKER) (test code 31.6 seconds 22.5-36.0 = 760) Effective 08/27/2018: PT Reference Range ChangeNew: 11.9-14.2 Previous: 11.7- 14.7RECOMMENDED COUMADIN/WARFARIN INR THERAPY RANGESSTANDARD DOSE: 2.0-3.0 Includes: PROPHYLAXIS for venous thrombosis, systemic embolization; TREATMENT for venous thrombosis and/or pulmonary embolus.HIGH RISK: Target INR is2.5-3.5 for patients wiht mechanical heart valves.POCT-GLUCOSE [id number] 05:04:00 Test Item Value Reference Range Comments POC-GLUCOSE METER (BEAKER) 178 mg/dL 70-110 : ADELITA RENEE AT [facility] [address] (test code = 1538) [facility], [address]: Ammunition Officer/Technic shanthi ID = [id number] for PADMINI FARR POCT-GLUCOSE [id number] 00:19:00 Test Item Value Reference Range Comments POC-GLUCOSE METER (BEAKER) 197 mg/dL 70-110 : ADELITA RENEE AT [facility] [address] (test code = 1538) [facility], [address]: Ammunition Officer/Technic shanthi ID = [id number] for PADMINI FARR CT, DRAINAGE W/ CATH [id number] 20:01:00Please send fluid for cultures and drain amylase (ordered). Thank you!Reason for exam:->peripancreatic fluid collectionAnesthesia:->NoneFINAL REPORT CT- guided drainage catheter placement dated 06/11/2019 Name of practitioner performing procedure:Daphne Alford M.D. Names of assistant basketball coach:None Procedure: Drainage catheter placement into the peripancreatic pseudocyst Pre-procedure diagnosis:Peripancreatic pseudocyst Post-procedure diagnosis:Peripancreatic pseudocyst Specimens removed:10 cc of cloudy fluid removed Estimated blood loss:None Complication:None Sedation: Moderate sedation was administered. 1 mg of Versed and 50 mcg fentanyl IV was used for moderate sedation monitored under my direction. Total intraservice time of the sedation was 20 minutes. The patient's vital signs were monitored throughout the procedure and recorded in the patient's medical record by the nurse. Anesthesia: 1% Xylocaine local anesthesia. Graft/Implants:None Technique: This exam was performed according to our departmental dose-optimization program, which includes automated exposure control, adjustment of the mA and/or kV according to patient size and/or use of interactive reconstruction technique. After obtaining informed consent, CT- guided contrast placement into the pelvic perinephric fluid collection was performed under usual sterile technique. After placing introducer needle and guidewire, the tract was dilated with a 6 and 8 Ghanaian dilators. An 8 Ghanaian drainage catheter was placed. This catheter was left in place, secured skin with suture, and connected to bulb suction. Impression: Successful CT-guided drainage placement into the mid abdominal peripancreatic pseudocyst. Signed: Daphne Alford MDReport Verified Date/Time: 06/11/2019 20:01:30 Reading Location: [address] Body Reading Room AMYLASE, BODY [id number] 18:57:00 Test Item Value Reference Range Comments AMYLASE FLUID (BEAKER) (test code = 350) > U/L Absence of reference range indicates that normals have not been defined.Assay performance has not been validated for this type of specimen.POCT-GLUCOSE METER 2019-06-11 12:40:00 Test Item Value Reference Range Comments POC-GLUCOSE METER (BEAKER) 197 mg/dL 70-110 : ADELITA RENEE AT [facility] [address] [facility] (test code = 1538) [place], [address]: Ammunition Officer/Technic shanthi ID = [id number] for BELKIS PEREZ CBC W/PLT COUNT & AUTO [id number] 10:41:00 Test Item Value Reference Range Comments WHITE BLOOD CELL COUNT (BEAKER) (test code = 28.7 K/ L 3.5 -10.5 775) RED BLOOD CELL COUNT (BEAKER) (test code = 761) 2.51 M/ L 3.93-5.22 HEMOGLOBIN (BEAKER) (test code = 410) 7.1 GM/DL 11.2-15.7 HEMATOCRIT (BEAKER) (test code = 411) 22.8 % 34.1-44.9 MEAN CORPUSCULAR VOLUME (BEAKER) (test code = 90.8 fL 79 .4-94.8 753) MEAN CORPUSCULAR HEMOGLOBIN (BEAKER) (test code 28.3 pg 25.6-32.2 = 751) MEAN CORPUSCULAR HEMOGLOBIN CONC (BEAKER) (test 31.1 GM/DL 32.2-35.5 code = 752) RED CELL DISTRIBUTION WIDTH (BEAKER) (test code 17.2 % 11.7-14.4 = 412) PLATELET COUNT (BEAKER) (test code = 756) 445 K/CU MM 150-45 0 MEAN PLATELET VOLUME (BEAKER) (test code = 754) 11.7 fL 9.4-12.3 NUCLEATED RED BLOOD CELLS (BEAKER) (test code = 0 /100 WBC 0-0 413) (CELLAVISION MANUAL DIFF)2019-06-11 10:41:00 Test Item Value Reference Range Comments NEUTROPHILS - REL (CELLAVISION)(BEAKER) (test 78 % code = 2816) LYMPHOCYTES - REL (CELLAVISION)(BEAKER) (test 3 % code = 2817) MONOCYTES - REL (CELLAVISION)(BEAKER) (test code 8 % = 2818) METAMYELOCYTES - REL (CELLAVISION)(BEAKER) (test 3 % 0-0 code = 2821) MYELOCYTES - REL (CELLAVISION)(BEAKER) (test code 4 % 0-0 = 2822) PROMYELOCYTES - REL (CELLAVSION)(BEAKER) (test 1 % 0 -0 code = 2825) BANDS - REL (CELLAVISION)(BEAKER) (test code = 3 % 0 -10 2826) NEUTROPHILS - ABS (CELLAVISION)(BEAKER) (test 22.39 K/ul 1. 56-6.13 code = 2830) LYMPHOCYTES - ABS (CELLAVISION)(BEAKER) (test 0.86 K/ul 1. 18-3.74 code = 2831) MONOCYTES - ABS (CELLAVISION)(BEAKER) (test code 2.30 K/uL 0.24-0.36 = 2832) METAMYELOCYTES - ABS (CELLAVISION)(BEAKER) (test 0.86 K/uL 0.00-0.00 code = 2836) MYELOCYTES-ABS (CELLAVISION)(BEAKER) (test code = 1.15 K/uL 0.00-0.00 2837) PROMYELOCYTES - ABS (CELLAVISION)(BEAKER) (test 0.29 K/uL 0.00-0.00 code = 2838) BANDS - ABS (CELLAVISION)(BEAKER) (test code = 0.86 K/uL 0 .00-0.80 2840) TOTAL COUNTED (BEAKER) (test code = 1351) 100 PLT MORPHOLOGY (BEAKER) (test code = 486) Normal TOXIC GRANULATION (BEAKER) (test code = 771) Present HYPOCHROMIA (BEAKER) (test code = 963) 1+ few ANISOCYTOSIS (BEAKER) (test code = 961) 1+ few ARTIFACT (CELLAVISION)(BEAKER) (test code = 3432) Present PLATELET CONCENTRATION (CELLAVISION)(BEAKER) Adequate (test code = 3438) Ammunition Officer ID - Yanet Huertas comments: Slide comments:[id number] 06:38:00 Test Item Value Reference Range Comments PHOSPHORUS (BEAKER) (test code = 604) 3.2 mg/dL 2.3-4.7 Ammunition Officer ID - AVERY [id number] 06:38:00 Test Item Value Reference Range Comments MAGNESIUM (BEAKER) (test code = 627) 2.3 mg/dL 1.6-2.6 Ammunition Officer ID - AVERY WBASIC METABOLIC [id number] 06:38:00 Test Item Value Reference Range Comments SODIUM (BEAKER) (test 137 meq/L 136-145 code = 381) POTASSIUM (BEAKER) (test 4.4 meq/L 3.5-5.1 code = 379) CHLORIDE (BEAKER) (test 108 meq/L 98-107 code = 382) CO2 (BEAKER) (test code = 19 meq/L 22-29 355) BLOOD UREA NITROGEN 53 mg/dL 7-21 (BEAKER) (test code = 354) CREATININE (BEAKER) (test 0.95 mg/dL 0.57-1.25 code = 358) GLUCOSE RANDOM (BEAKER) 182 mg/dL 70-105 (test code = 652) CALCIUM (BEAKER) (test 8.3 mg/dL 8.4-10.2 code = 697) EGFR (BEAKER) (test code 56 mL/min/1.73 sq m EST IMATED GFR IS NOT = 1092) ACCURATE CREA TININE CLEARANCE IN PRE DICTING GLOMERULAR FILTR ATION RATE. ESTIMATED GFR IS NOT APPLICABLE F OR DIALYSIS PATIENT S. Ammunition Officer ID - AVERY WPOCT-GLUCOSE [id number] 05:47:00 Test Item Value Reference Range Comments POC-GLUCOSE METER (BEAKER) 177 mg/dL 70-110 : ADELITA RENEE AT [facility] [address] (test code = 1538) [place], [address]: Ammunition Officer/Technic shanthi ID = [id number] for PADMINI FARR PT/[id number] 05:14:00 Test Item Value Reference Range Comments PROTIME (BEAKER) (test code = 759) 16.4 seconds 11.9-14.2 INR (BEAKER) (test code = 370) 1.4 <=5.9 PARTIAL THROMBOPLASTIN TIME (AFIA) (test code 31.7 seconds 22.5-36.0 = 760) Effective 08/27/2018: PT Reference Range ChangeNew: 11.9-14.2 Previous: 11.7- 14.7RECOMMENDED COUMADIN/WARFARIN INR THERAPY RANGESSTANDARD DOSE: 2.0-3.0 Includes: PROPHYLAXIS for venous thrombosis, systemic embolization; TREATMENT for venous thrombosis and/or pulmonary embolus.HIGH RISK: Target INR is2.5-3.5 for patients wiht mechanical heart valves.POCT-GLUCOSE [id number] 23:51:00 Test Item Value Reference Range Comments POC-GLUCOSE METER (AFIA) 185 mg/dL 70-110 : ADELITA RENEE AT [facility] [address] [facility] (test code = 1538) [facility], [address]: Ammunition Officer/Technic shanthi ID = [id number] for PADMINI FARR CT, [id number] 21:27:00PO contrast pleaseFINAL REPORT TECHNIQUE: CT of the abdomen and pelvis WITH intravenous contrast and WITHOUT oral contrast. Dose modulation, iterative reconstruction, and/or weight- based adjustment of the mA/kV was utilized to reduce the radiation dose to as low as reasonably achievable. INDICATION: evaluate for infectious processes. COMPARISON: CT from 06/04/2019. FINDINGS: LOWER THORAX: Small right and likely moderate sized left pleural effusions with bibasilar atelectasis. But nodular opacities in the right middle lobe are similar to the prior chest CT and measure up to 0.6 cm. Elevation of the left mid diaphragm. HEPATOBILIARY: No focal hepatic lesions. Gallbladder is unremarkable. No biliary ductal dilatation.SPLEEN: No splenomegaly.PANCREAS: No focal masses or ductal dilatation. ADRENALS: No adrenal nodules.KIDNEYS/URETERS: A stone in the left upper pole measures 0.2 cm and is nonobstructing. Stones in the right kidney measure up to 0.2 cm in the right lower pole and are nonobstructing. There are several bilateral renal cysts which measure up to 2.2 cm in the right lower pole. Additional indeterminate lesions measure 1.2 cm in the left upper pole and 1.7 cm in the right upper pole. The left ureteral urothelium is mildly thickened, likely reactive to the adjacent fluid collections. PELVIC ORGANS/BLADDER: Prior hysterectomy. PERITONEUM/RETROPERITONEUM: A left indirect inguinal hernia contains a nonobstructed loop of small bowel. An extensive fluid collection in the left upper quadrant is multiloculated and has increased in size. 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 GI TRACT: Prior low anterior resection with anastomosis. The inflammatory changes adjacent to the rectum are likely postsurgical. A large hiatal hernia is partially visualized. 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 Leftward convex curvature of the lumbar spine with moderate degenerative disc changes. Old, healed right parasymphyseal pubic bone fracture., Healed right inferior pubic ramus fracture. IMPRESSION: 1.There is a multiloculated fluid collection in the left upper quadrant which extends down the left retroperitoneum. 2.The nodular densities in the right middle lobe may be due to aspiration. Given the nodularity, consider a follow-up chest CT in 6-12 months to document resolution. 3.There are indeterminate renal lesions in both renal upper poles. Further evaluation with a CT of the abdomen with and without intravenous contrast, renal mass protocol, is recommended on a nonemergent basis. 4.A left indirect inguinal hernia containsa nonobstructed loop of small bowel. 5.A large hiatal hernia is partially visualized. 6.There are small right and moderate left pleural effusions with bilateral atelectasis. Signed: Brenda Nunez MDReportVerified Date/Time: 06/10/2019 21:27:15 Reading Location: [facility] [id number] Consult Reading Room Zohra ctronically signed by: BRENDA NUNEZ MD on 06/10/2019 09:27 [facility] MET[facility]OLIC [id number] 21:01:00 Test Item Value Reference Range Comments SODIUM (BEAKER) (test 137 meq/L 136-145 code = 381) POTASSIUM (BEAKER) (test 4.7 meq/L 3.5-5.1 code = 379) CHLORIDE (BEAKER) (test 107 meq/L 98-107 code = 382) CO2 (BEAKER) (test code = 25 meq/L 22-29 355) BLOOD UREA NITROGEN 53 mg/dL 7-21 (BEAKER) (test code = 354) CREATININE (BEAKER) (test 0.98 mg/dL 0.57-1.25 code = 358) GLUCOSE RANDOM (BEAKER) 191 mg/dL 70-105 (test code = 652) CALCIUM (BEAKER) (test 8.2 mg/dL 8.4-10.2 code = 697) EGFR (BEAKER) (test code 54 mL/min/1.73 sq m EST IMATED GFR IS NOT = 1092) ACCURATE CREA TININE CLEARANCE IN PRE DICTING GLOMERULAR FILTR ATION RATE. ESTIMATED GFR IS NOT APPLICABLE F OR DIALYSIS PATIENT S. Ammunition Officer ID - DBPROTHROMBIN TIME/[id number] 20:49:00 Test Item Value Reference Range Comments PROTIME (BEAKER) (test code = 759) 17.0 seconds 11.9-14.2 INR (BEAKER) (test code = 370) 1.4 <=5.9 Effective 08/27/2018: PT Reference Range ChangeNew: 11.9-14.2 Previous: 11.7- 14.7RECOMMENDED COUMADIN/WARFARIN INR THERAPY RANGESSTANDARD DOSE: 2.0-3.0 Includes: PROPHYLAXIS for venous thrombosis, systemic embolization; TREATMENT for venous thrombosis and/or pulmonary embolus.HIGH RISK: Target INR is2.5-3.5 for patients wiht mechanical heart valves.POCT-GLUCOSE [id number] 17:30:00 Test Item Value Reference Range Comments POC-GLUCOSE METER (BEAKER) 158 mg/dL 70-110 : ADELITA RENEE AT [facility] [address] [facility] (test code = 1538) [facility], [address]: Ammunition Officer/Technic shanthi ID = [id number] for WINSTON ANAYA BASIC METABOLIC [id number] 12:29:00 Test Item Value Reference Range Comments SODIUM (BEAKER) (test 139 meq/L 136-145 code = 381) POTASSIUM (BEAKER) (test 4.8 meq/L 3.5-5.1 Specime n slightly code = 379) hemolyzed CHLORIDE (BEAKER) (test 108 meq/L 98-107 code = 382) CO2 (BEAKER) (test code = 24 meq/L 22-29 355) BLOOD UREA NITROGEN 52 mg/dL 7-21 (BEAKER) (test code = 354) CREATININE (BEAKER) (test 1.03 mg/dL 0.57-1.25 Specim en slightly code = 358) hemolyzed GLUCOSE RANDOM (BEAKER) 199 mg/dL 70-105 (test code = 652) CALCIUM (BEAKER) (test 8.1 mg/dL 8.4-10.2 code = 697) EGFR (BEAKER) (test code 51 mL/min/1.73 sq m EST IMATED GFR IS NOT = 1092) ACCURATE CREA TININE CLEARANCE IN PRE DICTING GLOMERULAR FILTR ATION RATE. ESTIMATED GFR IS NOT APPLICABLE F OR DIALYSIS PATIENT S. Ammunition Officer ID - YOSSI MPOCT-GLUCOSE [id number] 10:57:00 Test Item Value Reference Range Comments POC-GLUCOSE METER (BEAKER) 233 mg/dL 70-110 : ADELITA RENEE AT [facility] [address] [facility] (test code = 1538) [facility], [address]: Ammunition Officer/Technic shanthi ID = [id number] for HÉCTOR WINSTON CBC W/PLT COUNT & AUTO [id number] 08:38:00 Test Item Value Reference Range Comments WHITE BLOOD CELL COUNT (BEAKER) (test code = 28.5 K/ L 3.5 -10.5 775) RED BLOOD CELL COUNT (BEAKER) (test code = 761) 2.64 M/ L 3.93-5.22 HEMOGLOBIN (BEAKER) (test code = 410) 7.7 GM/DL 11.2-15.7 HEMATOCRIT (BEAKER) (test code = 411) 23.4 % 34.1-44.9 MEAN CORPUSCULAR VOLUME (BEAKER) (test code = 88.6 fL 79 .4-94.8 753) MEAN CORPUSCULAR HEMOGLOBIN (BEAKER) (test code 29.2 pg 25.6-32.2 = 751) MEAN CORPUSCULAR HEMOGLOBIN CONC (BEAKER) (test 32.9 GM/DL 32.2-35.5 code = 752) RED CELL DISTRIBUTION WIDTH (BEAKER) (test code 17.4 % 11.7-14.4 = 412) PLATELET COUNT (BEAKER) (test code = 756) 430 K/CU MM 150-45 0 MEAN PLATELET VOLUME (BEAKER) (test code = 754) 11.7 fL 9.4-12.3 NUCLEATED RED BLOOD CELLS (BEAKER) (test code = 0 /100 WBC 0-0 413) (CELLAVISION MANUAL DIFF)2019-06-10 08:38:00 Test Item Value Reference Range Comments NEUTROPHILS - REL (CELLAVISION)(BEAKER) (test 80 % code = 2816) LYMPHOCYTES - REL (CELLAVISION)(BEAKER) (test 3 % code = 2817) MONOCYTES - REL (CELLAVISION)(BEAKER) (test code 6 % = 2818) METAMYELOCYTES - REL (CELLAVISION)(BEAKER) (test 2 % 0-0 code = 2821) MYELOCYTES - REL (CELLAVISION)(BEAKER) (test code 3 % 0-0 = 2822) PROMYELOCYTES - REL (CELLAVSION)(BEAKER) (test 1 % 0 -0 code = 2825) BANDS - REL (CELLAVISION)(BEAKER) (test code = 3 % 0 -10 2826) ATYPICAL LYMPHOCYTES - REL (CELLAVISION)(BEAKER) 2 % 0-0 (test code = 2829) NEUTROPHILS - ABS (CELLAVISION)(BEAKER) (test 22.80 K/ul 1. 56-6.13 code = 2830) LYMPHOCYTES - ABS (CELLAVISION)(BEAKER) (test 0.86 K/ul 1. 18-3.74 code = 2831) MONOCYTES - ABS (CELLAVISION)(BEAKER) (test code 1.71 K/uL 0.24-0.36 = 2832) METAMYELOCYTES - ABS (CELLAVISION)(BEAKER) (test 0.57 K/uL 0.00-0.00 code = 2836) MYELOCYTES-ABS (CELLAVISION)(BEAKER) (test code = 0.86 K/uL 0.00-0.00 2837) PROMYELOCYTES - ABS (CELLAVISION)(BEAKER) (test 0.29 K/uL 0.00-0.00 code = 2838) BANDS - ABS (CELLAVISION)(BEAKER) (test code = 0.86 K/uL 0 .00-0.80 2840) ATYPICAL LYMPHOCYTES - ABS (CELLAVISION)(BEAKER) 0.57 K/uL 0.00-0.00 (test code = 2858) TOTAL COUNTED (BEAKER) (test code = 1351) 100 RBC MORPHOLOGY (BEAKER) (test code = 762) Normal WBC MORPHOLOGY (BEAKER) (test code = 487) Normal PLT MORPHOLOGY (BEAKER) (test code = 486) Normal ARTIFACT (CELLAVISION)(BEAKER) (test code = 3432) Present PLATELET CONCENTRATION (CELLAVISION)(BEAKER) Adequate (test code = 3438) Ammunition Officer ID - Rosario OverholtUser comments: Slide comments:RAD, CHEST, 1 VIEW, NON [id number] 08:00:00Reason for exam:->evaluate for pulmonary edemaShould this be performed at the bedside?->YesFINAL REPORT RAD, CHEST, 1 VIEW, NON DEPT INDICATION: evaluate for pulmonary edema COMPARISON: Prior day's exam FINDINGS: Portable frontal view of the chest. IMPRESSION: Support Lines: PICC tip overlies the intracaval junction Lungs and pleura: Increased airspace and pleural opacities. No pneumothorax.Heart and mediastinum: Stable contours. Stable surgical changes.Additionalfindings: None. Signed: Belinda Durán Verified Date/Time: 06/10/2019 08:00:14 Reading Location: [facility] Radiology Reading Room POCT-GLUCOSE METER 2019-06-10 05:43:00 Test Item Value Reference Range Comments POC-GLUCOSE METER (BEAKER) 114 mg/dL 70-110 : ADELITA RENEE AT [facility] [address] [facility] (test code = 1538) [place], [address]: Ammunition Officer/Technic shanthi ID = [id number] for DIANA SHAH [id number] 03:51:00 Test Item Value Reference Range Comments PHOSPHORUS (BEAKER) (test code = 604) 3.9 mg/dL 2.3-4.7 Ammunition Officer ID - YOSSI [id number] 03:51:00 Test Item Value Reference Range Comments MAGNESIUM (BEAKER) (test code = 627) 2.2 mg/dL 1.6-2.6 Ammunition Officer ID - YOSSI MBASIC METABOLIC [id number] 03:51:00 Test Item Value Reference Range Comments SODIUM (BEAKER) (test 139 meq/L 136-145 code = 381) POTASSIUM (BEAKER) (test 4.8 meq/L 3.5-5.1 code = 379) CHLORIDE (BEAKER) (test 109 meq/L 98-107 code = 382) CO2 (BEAKER) (test code = 24 meq/L 22-29 355) BLOOD UREA NITROGEN 48 mg/dL 7-21 (BEAKER) (test code = 354) CREATININE (BEAKER) (test 0.91 mg/dL 0.57-1.25 code = 358) GLUCOSE RANDOM (BEAKER) 133 mg/dL 70-105 (test code = 652) CALCIUM (BEAKER) (test 8.3 mg/dL 8.4-10.2 code = 697) EGFR (BEAKER) (test code 59 mL/min/1.73 sq m EST IMATED GFR IS NOT = 1092) ACCURATE CREA TININE CLEARANCE IN PRE DICTING GLOMERULAR FILTR ATION RATE. ESTIMATED GFR IS NOT APPLICABLE F OR DIALYSIS PATIENT S. Ammunition Officer ID - YOSSI [id number] 03:43:00 Test Item Value Reference Range Comments PROTIME (BEAKER) (test code = 759) 15.8 seconds 11.9-14.2 INR (BEAKER) (test code = 370) 1.3 <=5.9 PARTIAL THROMBOPLASTIN TIME (BEAKER) (test code 30.0 seconds 22.5-36.0 = 760) Effective 08/27/2018: PT Reference Range ChangeNew: 11.9-14.2 Previous: 11.7- 14.7RECOMMENDED COUMADIN/WARFARIN INR THERAPY RANGESSTANDARD DOSE: 2.0-3.0 Includes: PROPHYLAXIS for venous thrombosis, systemic embolization; TREATMENT for venous thrombosis and/or pulmonary embolus.HIGH RISK: Target INR is2.5-3.5 for patients wiht mechanical heart valves.POCT-GLUCOSE [id number] 02:42:00 Test Item Value Reference Range Comments POC-GLUCOSE METER (BEAKER) 177 mg/dL 70-110 : ADELITA RENEE AT [place] [address] [address] (test code = 1538) [facility], [address]: Ammunition Officer/Technic shanthi ID = [id number] for DIANA SHAH POCT-GLUCOSE [id number] 00:56:00 Test Item Value Reference Range Comments POC-GLUCOSE METER (BEAKER) 130 mg/dL 70-110 : ADELITA RENEE AT [facility] [address] (test code = 1538) [facility], [address]: Ammunition Officer/Technic shanthi ID = [id number] for DIANA SHAH BASIC METABOLIC [id number] 22:14:00 Test Item Value Reference Range Comments SODIUM (BEAKER) (test 139 meq/L 136-145 code = 381) POTASSIUM (BEAKER) (test 5.3 meq/L 3.5-5.1 code = 379) CHLORIDE (BEAKER) (test 109 meq/L 98-107 code = 382) CO2 (BEAKER) (test code = 23 meq/L 22-29 355) BLOOD UREA NITROGEN 50 mg/dL 7-21 (BEAKER) (test code = 354) CREATININE (BEAKER) (test 0.95 mg/dL 0.57-1.25 code = 358) GLUCOSE RANDOM (BEAKER) 136 mg/dL 70-105 (test code = 652) CALCIUM (BEAKER) (test 8.0 mg/dL 8.4-10.2 code = 697) EGFR (BEAKER) (test code 56 mL/min/1.73 sq m EST IMATED GFR IS NOT = 1092) ACCURATE CREA TININE CLEARANCE IN PRE DICTING GLOMERULAR FILTR ATION RATE. ESTIMATED GFR IS NOT APPLICABLE F OR DIALYSIS PATIENT S. Ammunition Officer ID - DBBLOOD [id number] 20:00:00 Test Item Value Reference Range Comments CULTURE (BEAKER) (test code = 1095) No growth in 5 days BLOOD [id number] 20:00:00 Test Item Value Reference Range Comments CULTURE (BEAKER) (test code = 1095) No growth in 5 days VANCOMYCIN LEVEL, [id number] 19:44:00 Test Item Value Reference Range Comments VANCOMYCIN TROUGH (BEAKER) (test code = 522) 11.6 ug/mL 10. 0-20.0 Ammunition Officer ID - [id number] 18:57:00 Test Item Value Reference Range Comments HAPTOGLOBIN (BEAKER) (test code = 366) 421 mg/dL 14-258 Ammunition Officer ID - DBPOCT-GLUCOSE [id number] 18:28:00 Test Item Value Reference Range Comments POC-GLUCOSE METER (BEAKER) 193 mg/dL 70-110 : ADELITA RENEE AT [facility] [address] (test code = 1538) [place], [address]: Ammunition Officer/Technic shanthi ID = [id number] for ANNA RUIZ I URINALYSIS W/ REFLEX URINE [id number] 17:28:00 Test Item Value Reference Range Comments COLOR (BEAKER) (test code = 470) Light Yellow CLARITY (BEAKER) (test code = 469) Clear SPECIFIC GRAVITY UA (BEAKER) (test code = 468) 1.011 1 .001-1.035 PH UA (BEAKER) (test code = 467) 6.5 5.0-8.0 PROTEIN UA (BEAKER) (test code = 464) 50 mg/dL Negative GLUCOSE UA (BEAKER) (test code = 365) 150 mg/dL Negative KETONES UA (BEAKER) (test code = 371) Negative Negative BILIRUBIN UA (BEAKER) (test code = 462) Negative Negative BLOOD UA (BEAKER) (test code = 461) Small Negative NITRITE UA (BEAKER) (test code = 465) Negative Negative LEUKOCYTE ESTERASE UA (BEAKER) (test code = Negative Nega tive 466) UROBILINOGEN UA (BEAKER) (test code = 463) 0.2 mg/dL 0.2-1 .0 RBC UA (BEAKER) (test code = 519) 19 /HPF WBC UA (BEAKER) (test code = 520) 3 /HPF SQUAMOUS EPITHELIAL (BEAKER) (test code = 516) < /HPF YEAST (BEAKER) (test code = 1585) Moderate SOURCE(BEAKER) (test code = 3645) Ammunition Officer ID - [auto]Ammunition Officer ID - techBASIC METABOLIC [id number] 16:34:00 Test Item Value Reference Range Comments SODIUM (BEAKER) (test 139 meq/L 136-145 code = 381) POTASSIUM (BEAKER) (test 5.6 meq/L 3.5-5.1 Specime n slightly code = 379) hemolyzed CHLORIDE (BEAKER) (test 109 meq/L 98-107 code = 382) CO2 (BEAKER) (test code = 25 meq/L 22-29 355) BLOOD UREA NITROGEN 49 mg/dL 7-21 (BEAKER) (test code = 354) CREATININE (BEAKER) (test 0.98 mg/dL 0.57-1.25 Specim en slightly code = 358) hemolyzed GLUCOSE RANDOM (BEAKER) 170 mg/dL 70-105 (test code = 652) CALCIUM (BEAKER) (test 8.0 mg/dL 8.4-10.2 code = 697) EGFR (BEAKER) (test code 54 mL/min/1.73 sq m EST IMATED GFR IS NOT = 1092) ACCURATE CREA TININE CLEARANCE IN PRE DICTING GLOMERULAR FILTR ATION RATE. ESTIMATED GFR IS NOT APPLICABLE F OR DIALYSIS PATIENT S. Ammunition Officer ID - BSLACTATE DEHYDROGENASE (LDH)2019-06-09 16:00:00 Test Item Value Reference Range Comments LACTATE DEHYDROGENASE (BEAKER) 426 U/L 125-220 S pecimen slightly hemolyzed (test code = 635) Ammunition Officer ID - BS(CELLAVISION MANUAL DIFF)2019-06-09 15:14:00 Test Item Value Reference Range Comments NEUTROPHILS - REL (CELLAVISION)(BEAKER) (test 64 % code = 2816) LYMPHOCYTES - REL (CELLAVISION)(BEAKER) (test 5 % code = 2817) MONOCYTES - REL (CELLAVISION)(BEAKER) (test code 9 % = 2818) METAMYELOCYTES - REL (CELLAVISION)(BEAKER) (test 8 % 0-0 code = 2821) MYELOCYTES - REL (CELLAVISION)(BEAKER) (test code 3 % 0-0 = 2822) BANDS - REL (CELLAVISION)(BEAKER) (test code = 10 % 0 -10 2826) NEUTROPHILS - ABS (CELLAVISION)(BEAKER) (test 16.51 K/ul 1. 56-6.13 code = 2830) LYMPHOCYTES - ABS (CELLAVISION)(BEAKER) (test 1.29 K/ul 1. 18-3.74 code = 2831) MONOCYTES - ABS (CELLAVISION)(BEAKER) (test code 2.32 K/uL 0.24-0.36 = 2832) METAMYELOCYTES - ABS (CELLAVISION)(BEAKER) (test 2.06 K/uL 0.00-0.00 code = 2836) MYELOCYTES-ABS (CELLAVISION)(BEAKER) (test code = 0.77 K/uL 0.00-0.00 2837) BANDS - ABS (CELLAVISION)(BEAKER) (test code = 2.58 K/uL 0 .00-0.80 2840) TOTAL COUNTED (BEAKER) (test code = 1351) 100 RBC MORPHOLOGY (BEAKER) (test code = 762) Normal GIANT PLATELETS (BEAKER) (test code = 313) Present VACUOLATED NEUTROPHILS (BEAKER) (test code = 483) Present ARTIFACT (CELLAVISION)(BEAKER) (test code = 3432) Present PLATELET CONCENTRATION (CELLAVISION)(BEAKER) Increased (test code = 3438) Ammunition Officer ID - MazinPaulette comments: Slide comments:CBC W/PLT COUNT & AUTO [id number] 15:14:00 Test Item Value Reference Range Comments WHITE BLOOD CELL COUNT (BEAKER) (test code = 25.8 K/ L 3.5 -10.5 775) RED BLOOD CELL COUNT (BEAKER) (test code = 761) 2.54 M/ L 3.93-5.22 HEMOGLOBIN (BEAKER) (test code = 410) 8.0 GM/DL 11.2-15.7 HEMATOCRIT (BEAKER) (test code = 411) 23.3 % 34.1-44.9 MEAN CORPUSCULAR VOLUME (BEAKER) (test code = 91.7 fL 79 .4-94.8 753) MEAN CORPUSCULAR HEMOGLOBIN (BEAKER) (test code 31.5 pg 25.6-32.2 = 751) MEAN CORPUSCULAR HEMOGLOBIN CONC (BEAKER) (test 34.3 GM/DL 32.2-35.5 code = 752) RED CELL DISTRIBUTION WIDTH (BEAKER) (test code 18.3 % 11.7-14.4 = 412) PLATELET COUNT (BEAKER) (test code = 756) 423 K/CU MM 150-45 0 MEAN PLATELET VOLUME (BEAKER) (test code = 754) 12.4 fL 9.4-12.3 NUCLEATED RED BLOOD CELLS (BEAKER) (test code = 0 /100 WBC 0-0 413) POCT-GLUCOSE [id number] 12:21:00 Test Item Value Reference Range Comments POC-GLUCOSE METER (BEAKER) 201 mg/dL 70-110 : ADELITA RENEE AT [facility] [address] (test code = 1538) [place], [address]: Ammunition Officer/Technic shanthi ID = [id number] for ANNA RUIZ I CBC W/PLT COUNT & AUTO [id number] 07:10:00 Test Item Value Reference Range Comments WHITE BLOOD CELL COUNT (BEAKER) (test code = 27.2 K/ L 3.5 -10.5 775) RED BLOOD CELL COUNT (BEAKER) (test code = 761) 2.29 M/ L 3.93-5.22 HEMOGLOBIN (BEAKER) (test code = 410) 6.7 GM/DL 11.2-15.7 HEMATOCRIT (BEAKER) (test code = 411) 21.2 % 34.1-44.9 MEAN CORPUSCULAR VOLUME (BEAKER) (test code = 92.6 fL 79 .4-94.8 753) MEAN CORPUSCULAR HEMOGLOBIN (BEAKER) (test code 29.3 pg 25.6-32.2 = 751) MEAN CORPUSCULAR HEMOGLOBIN CONC (BEAKER) (test 31.6 GM/DL 32.2-35.5 code = 752) RED CELL DISTRIBUTION WIDTH (BEAKER) (test code 16.2 % 11.7-14.4 = 412) PLATELET COUNT (BEAKER) (test code = 756) 425 K/CU MM 150-45 0 MEAN PLATELET VOLUME (BEAKER) (test code = 754) 12.4 fL 9.4-12.3 NUCLEATED RED BLOOD CELLS (BEAKER) (test code = 0 /100 WBC 0-0 413) (CELLAVISION MANUAL DIFF)2019-06-09 07:10:00 Test Item Value Reference Range Comments NEUTROPHILS - REL (CELLAVISION)(BEAKER) (test 72 % code = 2816) LYMPHOCYTES - REL (CELLAVISION)(BEAKER) (test 7 % code = 2817) MONOCYTES - REL (CELLAVISION)(BEAKER) (test code 13 % = 2818) METAMYELOCYTES - REL (CELLAVISION)(BEAKER) (test 4 % 0-0 code = 2821) MYELOCYTES - REL (CELLAVISION)(BEAKER) (test 2 % 0-0 code = 2822) PROMYELOCYTES - REL (CELLAVSION)(BEAKER) (test 2 % 0 -0 code = 2825) NEUTROPHILS - ABS (CELLAVISION)(BEAKER) (test 19.58 K/ul 1. 56-6.13 code = 2830) LYMPHOCYTES - ABS (CELLAVISION)(BEAKER) (test 1.90 K/ul 1. 18-3.74 code = 2831) MONOCYTES - ABS (CELLAVISION)(BEAKER) (test code 3.54 K/uL 0.24-0.36 = 2832) METAMYELOCYTES - ABS (CELLAVISION)(BEAKER) (test 1.09 K/uL 0.00-0.00 code = 2836) MYELOCYTES-ABS (CELLAVISION)(BEAKER) (test code 0.54 K/uL 0.00-0.00 = 2837) PROMYELOCYTES - ABS (CELLAVISION)(BEAKER) (test 0.54 K/uL 0.00-0.00 code = 2838) TOTAL COUNTED (BEAKER) (test code = 1351) 100 SMUDGE CELLS (BEAKER) (test code = 1371) Present GIANT PLATELETS (BEAKER) (test code = 313) Present POLYCHROMATOPHILLIC RBCS(BEAKER) (test code = 1+ few 478) HYPOCHROMIA (BEAKER) (test code = 963) 2+ moderate ANISOCYTOSIS (BEAKER) (test code = 961) 1+ few POIKILOCYTES (BEAKER) (test code = 966) 1+ few ELLIPTOCYTES (BEAKER) (test code = 962) 1+ few OVALOCYTES (BEAKER) (test code = 477) 1+ few CHOLO CELLS (BEAKER) (test code = 474) 2+ moderate PLATELET CONCENTRATION (CELLAVISION)(BEAKER) Increased (test code = 3438) Ammunition Officer ID - Nellie Soto comments: Slide comments:RAD, CHEST, 1 VIEW, NON [id number] 05:14:00Reason for exam:->evaluate for pulmonary edemaShould this be performed at the bedside?->YesFINAL REPORT RAD, CHEST, 1 VIEW, NON DEPT INDICATION: evaluate for pulmonary edema COMPARISON: Prior day's exam FINDINGS: Portable frontal view of the chest. IMPRESSION: Support Lines: Stable right PICC Lungs and pleura: Unchanged airspace and pleural opacities. No pneumothorax.Heart and mediastinum: Stable contours. Additional findings: None. Signed: Daphne Gardner MDReport Verified Date/Time: 06/09/2019 05:14:59 [id number] 04:35:00 Test Item Value Reference Range Comments PHOSPHORUS (BEAKER) (test code = 604) 4.2 mg/dL 2.3-4.7 Ammunition Officer ID - YOSSI [id number] 04:35:00 Test Item Value Reference Range Comments MAGNESIUM (BEAKER) (test code = 627) 2.3 mg/dL 1.6-2.6 Ammunition Officer ID - YOSSI MBASIC METABOLIC [id number] 04:35:00 Test Item Value Reference Range Comments SODIUM (BEAKER) (test 141 meq/L 136-145 code = 381) POTASSIUM (BEAKER) (test 5.1 meq/L 3.5-5.1 code = 379) CHLORIDE (BEAKER) (test 110 meq/L 98-107 code = 382) CO2 (BEAKER) (test code = 23 meq/L 22-29 355) BLOOD UREA NITROGEN 49 mg/dL 7-21 (BEAKER) (test code = 354) CREATININE (BEAKER) (test 0.97 mg/dL 0.57-1.25 code = 358) GLUCOSE RANDOM (BEAKER) 176 mg/dL 70-105 (test code = 652) CALCIUM (BEAKER) (test 8.6 mg/dL 8.4-10.2 code = 697) EGFR (BEAKER) (test code 55 mL/min/1.73 sq m EST IMATED GFR IS NOT = 1092) ACCURATE CREA TININE CLEARANCE IN PRE DICTING GLOMERULAR FILTR ATION RATE. ESTIMATED GFR IS NOT APPLICABLE F OR DIALYSIS PATIENT S. Ammunition Officer ID - YOSSI [id number] 04:26:00 Test Item Value Reference Range Comments PROTIME (BEAKER) (test code = 759) 15.9 seconds 11.9-14.2 INR (BEAKER) (test code = 370) 1.3 <=5.9 PARTIAL THROMBOPLASTIN TIME (BEAKER) (test code 29.9 seconds 22.5-36.0 = 760) Effective 08/27/2018: PT Reference Range ChangeNew: 11.9-14.2 Previous: 11.7- 14.7RECOMMENDED COUMADIN/WARFARIN INR THERAPY RANGESSTANDARD DOSE: 2.0-3.0 Includes: PROPHYLAXIS for venous thrombosis, systemic embolization; TREATMENT for venous thrombosis and/or pulmonary embolus.HIGH RISK: Target INR is2.5-3.5 for patients wiht mechanical heart valves.CALCIUM, [id number] 03:50:00 Test Item Value Reference Range Comments CALCIUM IONIZED (BEAKER) (test code = 698) 1.19 mmol/L 1.12- 1.27 PH, BLOOD (BEAKER) (test code = 1810) 7.47 POCT-GLUCOSE [id number] 00:40:00 Test Item Value Reference Range Comments POC-GLUCOSE METER (BEAKER) 167 mg/dL 70-110 : ADELITA RENEE AT [facility] [address] [facility] (test code = 1538) [facility], [address]: Ammunition Officer/Technic shanthi ID = [id number] for Giuseppe Dunlap BASIC METABOLIC [id number] 21:58:00 Test Item Value Reference Range Comments SODIUM (BEAKER) (test 144 meq/L 136-145 code = 381) POTASSIUM (BEAKER) (test 4.4 meq/L 3.5-5.1 code = 379) CHLORIDE (BEAKER) (test 116 meq/L 98-107 code = 382) CO2 (BEAKER) (test code = 21 meq/L 22-29 355) BLOOD UREA NITROGEN 43 mg/dL 7-21 (BEAKER) (test code = 354) CREATININE (BEAKER) (test 0.78 mg/dL 0.57-1.25 code = 358) GLUCOSE RANDOM (BEAKER) 133 mg/dL 70-105 (test code = 652) CALCIUM (BEAKER) (test 6.6 mg/dL 8.4-10.2 code = 697) EGFR (BEAKER) (test code 70 mL/min/1.73 sq m EST IMATED GFR IS NOT = 1092) ACCURATE CREA TININE CLEARANCE IN PRE DICTING GLOMERULAR FILTR ATION RATE. ESTIMATED GFR IS NOT APPLICABLE F OR DIALYSIS PATIENT S. Ammunition Officer ID - BSBASIC METABOLIC [id number] 18:46:00 Test Item Value Reference Range Comments SODIUM (BEAKER) (test 140 meq/L 136-145 code = 381) POTASSIUM (BEAKER) (test 5.1 meq/L 3.5-5.1 code = 379) CHLORIDE (BEAKER) (test 110 meq/L 98-107 code = 382) CO2 (BEAKER) (test code = 23 meq/L 22-29 355) BLOOD UREA NITROGEN 49 mg/dL 7-21 (BEAKER) (test code = 354) CREATININE (BEAKER) (test 0.99 mg/dL 0.57-1.25 code = 358) GLUCOSE RANDOM (BEAKER) 200 mg/dL 70-105 (test code = 652) CALCIUM (BEAKER) (test 7.7 mg/dL 8.4-10.2 code = 697) EGFR (BEAKER) (test code 53 mL/min/1.73 sq m EST IMATED GFR IS NOT = 1092) ACCURATE CREA TININE CLEARANCE IN PRE DICTING GLOMERULAR FILTR ATION RATE. ESTIMATED GFR IS NOT APPLICABLE F OR DIALYSIS PATIENT S. Ammunition Officer ID - BSPOCT-GLUCOSE [id number] 18:06:00 Test Item Value Reference Range Comments POC-GLUCOSE METER (BEAKER) 203 mg/dL 70-110 : ADELITA RENEE AT [facility] [address] [facility] (test code = 1538) [place], [address]: Ammunition Officer/Technic shanthi ID = [id number] for GERARDO STORY POCT-GLUCOSE [id number] 11:43:00 Test Item Value Reference Range Comments POC-GLUCOSE METER (BEAKER) 172 mg/dL 70-110 : Not ified RN/MD: TESTED AT (test code = 1538) [facility] [address] [facility], [address]: Ammunition Officer/ Keno Writer ID = [id number] for MERLINE MAX CBC W/PLT COUNT & AUTO [id number] 10:50:00 Test Item Value Reference Range Comments WHITE BLOOD CELL COUNT (BEAKER) (test code = 25.7 K/ L 3.5 -10.5 775) RED BLOOD CELL COUNT (BEAKER) (test code = 761) 2.46 M/ L 3.93-5.22 HEMOGLOBIN (BEAKER) (test code = 410) 7.3 GM/DL 11.2-15.7 HEMATOCRIT (BEAKER) (test code = 411) 22.6 % 34.1-44.9 MEAN CORPUSCULAR VOLUME (BEAKER) (test code = 91.9 fL 79 .4-94.8 753) MEAN CORPUSCULAR HEMOGLOBIN (BEAKER) (test code 29.7 pg 25.6-32.2 = 751) MEAN CORPUSCULAR HEMOGLOBIN CONC (BEAKER) (test 32.3 GM/DL 32.2-35.5 code = 752) RED CELL DISTRIBUTION WIDTH (BEAKER) (test code 15.9 % 11.7-14.4 = 412) PLATELET COUNT (BEAKER) (test code = 756) 361 K/CU MM 150-45 0 MEAN PLATELET VOLUME (BEAKER) (test code = 754) 12.3 fL 9.4-12.3 NUCLEATED RED BLOOD CELLS (BEAKER) (test code = 0 /100 WBC 0-0 413) (CELLAVISION MANUAL DIFF)2019-06-08 10:50:00 Test Item Value Reference Range Comments NEUTROPHILS - REL (CELLAVISION)(BEAKER) (test 77 % code = 2816) LYMPHOCYTES - REL (CELLAVISION)(BEAKER) (test 1 % code = 2817) MONOCYTES - REL (CELLAVISION)(BEAKER) (test code 8 % = 2818) EOSINOPHILS - REL (CELLAVISION)(BEAKER) (test 2 % code = 2819) METAMYELOCYTES - REL (CELLAVISION)(BEAKER) (test 4 % 0-0 code = 2821) MYELOCYTES - REL (CELLAVISION)(BEAKER) (test code 3 % 0-0 = 2822) BANDS - REL (CELLAVISION)(BEAKER) (test code = 5 % 0 -10 2826) NEUTROPHILS - ABS (CELLAVISION)(BEAKER) (test 19.79 K/ul 1. 56-6.13 code = 2830) LYMPHOCYTES - ABS (CELLAVISION)(BEAKER) (test 0.26 K/ul 1. 18-3.74 code = 2831) MONOCYTES - ABS (CELLAVISION)(BEAKER) (test code 2.06 K/uL 0.24-0.36 = 2832) EOSINOPHILS - ABS (CELLAVISION)(BEAKER) (test 0.51 K/uL 0. 04-0.36 code = 2834) METAMYELOCYTES - ABS (CELLAVISION)(BEAKER) (test 1.03 K/uL 0.00-0.00 code = 2836) MYELOCYTES-ABS (CELLAVISION)(BEAKER) (test code = 0.77 K/uL 0.00-0.00 2837) BANDS - ABS (CELLAVISION)(BEAKER) (test code = 1.29 K/uL 0 .00-0.80 2840) TOTAL COUNTED (BEAKER) (test code = 1351) 100 RBC MORPHOLOGY (BEAKER) (test code = 762) Normal WBC MORPHOLOGY (BEAKER) (test code = 487) Normal PLT MORPHOLOGY (BEAKER) (test code = 486) Normal ARTIFACT (CELLAVISION)(BEAKER) (test code = 3432) Present PLATELET CONCENTRATION (CELLAVISION)(BEAKER) Adequate (test code = 3438) Ammunition Officer ID - Rosario OverholtUser comments: Slide comments:C. DIFFICILE GDH TOXIN 2019-06-08 10:35:00 Test Item Value Reference Range Comments CDT TOXIN (test code = Negative Negative [id number]) CDT GDH ANTIGEN (test code = Negative Negative No indication of Clostridium [id number]) difficile infect ion and no colonization. D iscontinue enteric isolatio n and therapy. Testing performed by [employer] Rapid Cassette Assay. For GDH, published sensitivity of the assay is 98.7% compared to cytotoxicity testing. For Toxin AB, published sensitivity is 87.8% and specificity 99.4% compared to cytotoxicity testing.Verification of kit performance was done by the [facility] Microbiology Lab prior to clinical use.POCT-GLUCOSE [id number] 06:20:00 Test Item Value Reference Range Comments POC-GLUCOSE METER (BEAKER) 178 mg/dL 70-110 : ADELITA RIOS AT [facility] [address] (test code = 1538) [place], [address]: Ammunition Officer/Technic shanthi ID = [id number] for TASHA LAYTON BASIC METABOLIC [id number] 06:01:00 Test Item Value Reference Range Comments SODIUM (BEAKER) (test 142 meq/L 136-145 code = 381) POTASSIUM (BEAKER) (test 5.0 meq/L 3.5-5.1 code = 379) CHLORIDE (BEAKER) (test 112 meq/L 98-107 code = 382) CO2 (BEAKER) (test code = 22 meq/L 22-29 355) BLOOD UREA NITROGEN 52 mg/dL 7-21 (BEAKER) (test code = 354) CREATININE (BEAKER) (test 0.99 mg/dL 0.57-1.25 code = 358) GLUCOSE RANDOM (BEAKER) 159 mg/dL 70-105 (test code = 652) CALCIUM (BEAKER) (test 7.9 mg/dL 8.4-10.2 code = 697) EGFR (BEAKER) (test code 53 mL/min/1.73 sq m EST IMATED GFR IS NOT = 1092) ACCURATE CREA TININE CLEARANCE IN PRE DICTING GLOMERULAR FILTR ATION RATE. ESTIMATED GFR IS NOT APPLICABLE F OR DIALYSIS PATIENT S. Ammunition Officer ID - SHANON [id number] 05:56:00 Test Item Value Reference Range Comments PHOSPHORUS (BEAKER) (test code = 604) 4.2 mg/dL 2.3-4.7 Ammunition Officer ID - SHANON [id number] 05:56:00 Test Item Value Reference Range Comments MAGNESIUM (BEAKER) (test code = 627) 2.5 mg/dL 1.6-2.6 Ammunition Officer ID - SHANON LRAD, CHEST, 1 VIEW, NON [id number] 05:14:00Reason for exam:->evaluate for pulmonary edemaShould this be performed at the bedside?->YesFINAL REPORT RAD, CHEST, 1 VIEW, NON DEPT INDICATION: evaluate for pulmonary edema COMPARISON: Prior day's exam FINDINGS: Portable frontal view of the chest. IMPRESSION: Support Lines: Stable. Lungs and pleura: Unchanged scattered parenchymal opacities compatible with edema and bilateral left greater than right small pleural effusions. No pneumothorax.Heart and mediastinum: Stable contours. Additional findings: None. Signed: Daphne Gardner MDReport Verified Date/Time: 06/08/2019 05:14:39 PT/APTT 2019-06-08 04:39:00 Test Item Value Reference Range Comments PROTIME (BEAKER) (test code = 759) 15.6 seconds 11.9-14.2 INR (BEAKER) (test code = 370) 1.3 <=5.9 PARTIAL THROMBOPLASTIN TIME (BEAKER) (test code 27.6 seconds 22.5-36.0 = 760) Effective 08/27/2018: PT Reference Range ChangeNew: 11.9-14.2 Previous: 11.7- 14.7RECOMMENDED COUMADIN/WARFARIN INR THERAPY RANGESSTANDARD DOSE: 2.0-3.0 Includes: PROPHYLAXIS for venous thrombosis, systemic embolization; TREATMENT for venous thrombosis and/or pulmonary embolus.HIGH RISK: Target INR is2.5-3.5 for patients wiht mechanical heart valves.POCT-GLUCOSE [id number] 00:12:00 Test Item Value Reference Range Comments POC-GLUCOSE METER (BEAKER) 205 mg/dL 70-110 : ADELITA RENEE AT [facility] [address] [facility] (test code = 1538) [facility], [address]: Ammunition Officer/Technic shanthi ID = [id number] for TASHA LAYTON [employer] MET[employer]OLIC [id number] 21:51:00 Test Item Value Reference Range Comments SODIUM (BEAKER) (test 139 meq/L 136-145 code = 381) POTASSIUM (BEAKER) (test 4.6 meq/L 3.5-5.1 code = 379) CHLORIDE (BEAKER) (test 111 meq/L 98-107 code = 382) CO2 (BEAKER) (test code = 21 meq/L 22-29 355) BLOOD UREA NITROGEN 52 mg/dL 7-21 (BEAKER) (test code = 354) CREATININE (BEAKER) (test 1.02 mg/dL 0.57-1.25 code = 358) GLUCOSE RANDOM (BEAKER) 211 mg/dL 70-105 (test code = 652) CALCIUM (BEAKER) (test 7.8 mg/dL 8.4-10.2 code = 697) EGFR (BEAKER) (test code 52 mL/min/1.73 sq m EST IMATED GFR IS NOT = 1092) ACCURATE CREA TININE CLEARANCE IN PRE DICTING GLOMERULAR FILTR ATION RATE. ESTIMATED GFR IS NOT APPLICABLE F OR DIALYSIS PATIENT S. Ammunition Officer ID - DBPOCT-GLUCOSE [id number] 18:32:00 Test Item Value Reference Range Comments POC-GLUCOSE METER (BEAKER) 194 mg/dL 70-110 : ADELITA RENEE AT [facility] [address] (test code = 1538) [facility], [address]: Ammunition Officer/Technic shanthi ID = [id number] for FLORI MORGAN [employer]IC MET[employer]OLIC [id number] 15:14:00 Test Item Value Reference Range Comments SODIUM (BEAKER) (test 141 meq/L 136-145 code = 381) POTASSIUM (BEAKER) (test 4.6 meq/L 3.5-5.1 code = 379) CHLORIDE (BEAKER) (test 112 meq/L 98-107 code = 382) CO2 (BEAKER) (test code = 21 meq/L 22-29 355) BLOOD UREA NITROGEN 51 mg/dL 7-21 (BEAKER) (test code = 354) CREATININE (BEAKER) (test 0.97 mg/dL 0.57-1.25 code = 358) GLUCOSE RANDOM (BEAKER) 159 mg/dL 70-105 (test code = 652) CALCIUM (BEAKER) (test 7.8 mg/dL 8.4-10.2 code = 697) EGFR (BEAKER) (test code 55 mL/min/1.73 sq m EST IMATED GFR IS NOT = 1092) ACCURATE CREA TININE CLEARANCE IN PRE DICTING GLOMERULAR FILTR ATION RATE. ESTIMATED GFR IS NOT APPLICABLE F OR DIALYSIS PATIENT S. Ammunition Officer ID - PIAYA LCBC W/PLT COUNT & AUTO [id number] 14:07:00 Test Item Value Reference Range Comments WHITE BLOOD CELL COUNT (BEAKER) (test code = 21.9 K/ L 3.5 -10.5 775) RED BLOOD CELL COUNT (BEAKER) (test code = 761) 2.46 M/ L 3.93-5.22 HEMOGLOBIN (BEAKER) (test code = 410) 7.7 GM/DL 11.2-15.7 HEMATOCRIT (BEAKER) (test code = 411) 23.4 % 34.1-44.9 MEAN CORPUSCULAR VOLUME (BEAKER) (test code = 95.1 fL 79 .4-94.8 753) MEAN CORPUSCULAR HEMOGLOBIN (BEAKER) (test code 31.3 pg 25.6-32.2 = 751) MEAN CORPUSCULAR HEMOGLOBIN CONC (BEAKER) (test 32.9 GM/DL 32.2-35.5 code = 752) RED CELL DISTRIBUTION WIDTH (BEAKER) (test code 16.2 % 11.7-14.4 = 412) PLATELET COUNT (BEAKER) (test code = 756) 307 K/CU MM 150-45 0 MEAN PLATELET VOLUME (BEAKER) (test code = 754) 12.5 fL 9.4-12.3 NUCLEATED RED BLOOD CELLS (BEAKER) (test code = 0 /100 WBC 0-0 413) (CELLAVISION MANUAL DIFF)2019-06-07 14:07:00 Test Item Value Reference Range Comments NEUTROPHILS - REL (CELLAVISION)(BEAKER) (test 76 % code = 2816) LYMPHOCYTES - REL (CELLAVISION)(BEAKER) (test 7 % code = 2817) MONOCYTES - REL (CELLAVISION)(BEAKER) (test code 7 % = 2818) EOSINOPHILS - REL (CELLAVISION)(BEAKER) (test 1 % code = 2819) METAMYELOCYTES - REL (CELLAVISION)(BEAKER) (test 3 % 0-0 code = 2821) MYELOCYTES - REL (CELLAVISION)(BEAKER) (test code 2 % 0-0 = 2822) BANDS - REL (CELLAVISION)(BEAKER) (test code = 2 % 0 -10 2826) ATYPICAL LYMPHOCYTES - REL (CELLAVISION)(BEAKER) 2 % 0-0 (test code = 2829) NEUTROPHILS - ABS (CELLAVISION)(BEAKER) (test 16.64 K/ul 1. 56-6.13 code = 2830) LYMPHOCYTES - ABS (CELLAVISION)(BEAKER) (test 1.53 K/ul 1. 18-3.74 code = 2831) MONOCYTES - ABS (CELLAVISION)(BEAKER) (test code 1.53 K/uL 0.24-0.36 = 2832) EOSINOPHILS - ABS (CELLAVISION)(BEAKER) (test 0.22 K/uL 0. 04-0.36 code = 2834) METAMYELOCYTES - ABS (CELLAVISION)(BEAKER) (test 0.66 K/uL 0.00-0.00 code = 2836) MYELOCYTES-ABS (CELLAVISION)(BEAKER) (test code = 0.44 K/uL 0.00-0.00 2837) BANDS - ABS (CELLAVISION)(BEAKER) (test code = 0.44 K/uL 0 .00-0.80 2840) ATYPICAL LYMPHOCYTES - ABS (CELLAVISION)(BEAKER) 0.44 K/uL 0.00-0.00 (test code = 2858) TOTAL COUNTED (BEAKER) (test code = 1351) 100 RBC MORPHOLOGY (BEAKER) (test code = 762) Normal WBC MORPHOLOGY (BEAKER) (test code = 487) Normal PLT MORPHOLOGY (BEAKER) (test code = 486) Normal POCT-GLUCOSE [id number] 13:31:00 Test Item Value Reference Range Comments POC-GLUCOSE METER (BEAKER) 185 mg/dL 70-110 : ADEL[facility] RENEE AT [facility] [address] [facility] (test code = 1538) [facility], [address]: Ammunition Officer/Technic shanthi ID = [id number] for FLORI MORGAN CBC W/PLT COUNT & AUTO [id number] 08:17:00 Test Item Value Reference Range Comments WHITE BLOOD CELL COUNT (BEAKER) (test code = 22.3 K/ L 3.5 -10.5 775) RED BLOOD CELL COUNT (BEAKER) (test code = 761) 2.41 M/ L 3.93-5.22 HEMOGLOBIN (BEAKER) (test code = 410) 7.1 GM/DL 11.2-15.7 HEMATOCRIT (BEAKER) (test code = 411) 22.1 % 34.1-44.9 MEAN CORPUSCULAR VOLUME (BEAKER) (test code = 91.7 fL 79 .4-94.8 753) MEAN CORPUSCULAR HEMOGLOBIN (BEAKER) (test code 29.5 pg 25.6-32.2 = 751) MEAN CORPUSCULAR HEMOGLOBIN CONC (BEAKER) (test 32.1 GM/DL 32.2-35.5 code = 752) RED CELL DISTRIBUTION WIDTH (BEAKER) (test code 15.7 % 11.7-14.4 = 412) PLATELET COUNT (BEAKER) (test code = 756) 272 K/CU MM 150-45 0 MEAN PLATELET VOLUME (BEAKER) (test code = 754) 12.5 fL 9.4-12.3 NUCLEATED RED BLOOD CELLS (BEAKER) (test code = 0 /100 WBC 0-0 413) (CELLAVISION MANUAL DIFF)2019-06-07 08:17:00 Test Item Value Reference Range Comments NEUTROPHILS - REL (CELLAVISION)(BEAKER) (test 87 % code = 2816) MONOCYTES - REL (CELLAVISION)(BEAKER) (test code 6 % = 2818) MYELOCYTES - REL (CELLAVISION)(BEAKER) (test 3 % 0-0 code = 2822) BANDS - REL (CELLAVISION)(BEAKER) (test code = 4 % 0 -10 2826) NEUTROPHILS - ABS (CELLAVISION)(BEAKER) (test 19.40 K/ul 1. 56-6.13 code = 2830) MONOCYTES - ABS (CELLAVISION)(BEAKER) (test code 1.34 K/uL 0.24-0.36 = 2832) MYELOCYTES-ABS (CELLAVISION)(BEAKER) (test code 0.67 K/uL 0.00-0.00 = 2837) BANDS - ABS (CELLAVISION)(BEAKER) (test code = 0.89 K/uL 0 .00-0.80 2840) TOTAL COUNTED (BEAKER) (test code = 1351) 100 SMUDGE CELLS (BEAKER) (test code = 1371) Present GIANT PLATELETS (BEAKER) (test code = 313) Present ANISOCYTOSIS (BEAKER) (test code = 961) 2+ moderate MACROCYTES (BEAKER) (test code = 964) 2+ moderate PLATELET CONCENTRATION (CELLAVISION)(BEAKER) Adequate (test code = 3438) Ammunition Officer ID - Julio Santos comments: Slide comments:[id number] 05:28:00 Test Item Value Reference Range Comments PREALBUMIN (BEAKER) (test code = 586) 8 mg/dL 14-45 Ammunition Officer ID - SHANON LBASIC METABOLIC [id number] 05:06:00 Test Item Value Reference Range Comments SODIUM (BEAKER) (test 141 meq/L 136-145 code = 381) POTASSIUM (BEAKER) (test 4.0 meq/L 3.5-5.1 code = 379) CHLORIDE (BEAKER) (test 110 meq/L 98-107 code = 382) CO2 (BEAKER) (test code = 23 meq/L 22-29 355) BLOOD UREA NITROGEN 52 mg/dL 7-21 (BEAKER) (test code = 354) CREATININE (BEAKER) (test 1.05 mg/dL 0.57-1.25 code = 358) GLUCOSE RANDOM (BEAKER) 171 mg/dL 70-105 (test code = 652) CALCIUM (BEAKER) (test 7.5 mg/dL 8.4-10.2 code = 697) EGFR (BEAKER) (test code 50 mL/min/1.73 sq m EST IMATED GFR IS NOT = 1092) ACCURATE CREA TININE CLEARANCE IN PRE DICTING GLOMERULAR FILTR ATION RATE. ESTIMATED GFR IS NOT APPLICABLE F OR DIALYSIS PATIENT S. Ammunition Officer ID - SHANON [id number] 04:47:00 Test Item Value Reference Range Comments TRIGLYCERIDES (BEAKER) (test code = 540) 159 mg/dL TRIGLYCERIDE REFERENCE RANGELow Risk <150Borderline Risk 150-199High Risk 200-499Very High Risk>=500Operator ID - PIAYA [id number] 04:47:00 Test Item Value Reference Range Comments MAGNESIUM (BEAKER) (test code = 627) 2.4 mg/dL 1.6-2.6 Ammunition Officer ID - PICARMEN [id number] 04:47:00 Test Item Value Reference Range Comments PHOSPHORUS (BEAKER) (test code = 604) 4.0 mg/dL 2.3-4.7 Ammunition Officer ID - PICARMEN LHEPATIC FUNCTION [id number] 04:47:00 Test Item Value Reference Range Comments TOTAL PROTEIN (BEAKER) (test code = 770) 4.5 gm/dL 6.0-8.3 ALBUMIN (BEAKER) (test code = 1145) 2.2 g/dL 3.5-5.0 BILIRUBIN TOTAL (BEAKER) (test code = 377) 0.4 mg/dL 0.2-1 .2 BILIRUBIN DIRECT (BEAKER) (test code = 706) 0.2 mg/dL 0.1- 0.5 ALKALINE PHOSPHATASE (BEAKER) (test code = 346) 81 U/L 40-150 AST (SGOT) (BEAKER) (test code = 353) 50 U/L 5-34 ALT (SGPT) (BEAKER) (test code = 347) 44 U/L 6-55 Ammunition Officer ID - SHANON [id number] 04:46:00 Test Item Value Reference Range Comments PROTIME (BEAKER) (test code = 759) 15.7 seconds 11.9-14.2 INR (BEAKER) (test code = 370) 1.3 <=5.9 PARTIAL THROMBOPLASTIN TIME (BEAKER) (test code 28.6 seconds 22.5-36.0 = 760) Effective 08/27/2018: PT Reference Range ChangeNew: 11.9-14.2 Previous: 11.7- 14.7RECOMMENDED COUMADIN/WARFARIN INR THERAPY RANGESSTANDARD DOSE: 2.0-3.0 Includes: PROPHYLAXIS for venous thrombosis, systemic embolization; TREATMENT for venous thrombosis and/or pulmonary embolus.HIGH RISK: Target INR is2.5-3.5 for patients wiht mechanical heart valves.RAD, CHEST, 1 VIEW, NON [id number] 03:20:00Reason for exam:->evaluate for pulmonary edemaShould this be performed at the bedside?->YesFINAL REPORT RAD, CHEST, 1 VIEW, NON DEPT INDICATION: evaluate for pulmonary edema COMPARISON: Prior day's exam FINDINGS: Portable frontal view of the chest. IMPRESSION: Support Lines: Stable right PICC Lungs and pleura: Unchanged scattered bibasilar parenchymal opacities andsmall left pleural effusion. No pneumothorax.Heart and mediastinum: Stable contours. Additional findings: None. Signed: Daphne Gardner MDReport Verified Date/Time: 06/07/2019 03:20:09 POCT-GLUCOSE [id number] 23:59:00 Test Item Value Reference Range Comments POC-GLUCOSE METER (BEAKER) 167 mg/dL 70-110 : ADELITA RENEE AT [facility] [address] [facility] (test code = 1538) [facility], [address]: Ammunition Officer/Technic shanthi ID = [id number] for MEHREEN, SENRAINE BASIC METABOLIC [id number] 21:20:00 Test Item Value Reference Range Comments SODIUM (BEAKER) (test 141 meq/L 136-145 code = 381) POTASSIUM (BEAKER) (test 3.9 meq/L 3.5-5.1 code = 379) CHLORIDE (BEAKER) (test 108 meq/L 98-107 code = 382) CO2 (BEAKER) (test code = 23 meq/L 22-29 355) BLOOD UREA NITROGEN 55 mg/dL 7-21 (BEAKER) (test code = 354) CREATININE (BEAKER) (test 1.07 mg/dL 0.57-1.25 code = 358) GLUCOSE RANDOM (BEAKER) 169 mg/dL 70-105 (test code = 652) CALCIUM (BEAKER) (test 7.6 mg/dL 8.4-10.2 code = 697) EGFR (BEAKER) (test code 49 mL/min/1.73 sq m EST IMATED GFR IS NOT = 1092) ACCURATE CREA TININE CLEARANCE IN PRE DICTING GLOMERULAR FILTR ATION RATE. ESTIMATED GFR IS NOT APPLICABLE F OR DIALYSIS PATIENT S. Ammunition Officer ID - YOSSI MC-REACTIVE [id number] 21:16:00 Test Item Value Reference Range Comments C-REACTIVE PROTEIN (BEAKER) (test code = 676) 19.41 mg/dL 0. 00-0.50 Ammunition Officer ID - YOSSI MVANCOMYCIN LEVEL, [id number] 19:05:00 Test Item Value Reference Range Comments VANCOMYCIN TROUGH (BEAKER) (test code = 522) 10.4 ug/mL 10. 0-20.0 Ammunition Officer ID - YOSSI MPOCT-GLUCOSE [id number] 18:34:00 Test Item Value Reference Range Comments POC-GLUCOSE METER (BEAKER) 154 mg/dL 70-110 : ADELITA RENEE AT [facility] [address] (test code = 1538) [place], [address]: Ammunition Officer/Technic shanthi ID = [id number] for FLORI MORGAN OCCULT BLOOD, [id number] 17:57:00 Test Item Value Reference Range Comments FECAL OCCULT BLOOD (BEAKER) (test code = 618) Positive Ne gative [id number] 14:45:00 Test Item Value Reference Range Comments AMYLASE (BEAKER) (test code = 349) 209 U/L 25-125 Ammunition Officer ID - [id number] 14:45:00 Test Item Value Reference Range Comments LIPASE (BEAKER) (test code = 749) 100 U/L 8-78 Ammunition Officer ID - ROSIANGCOMPREHENSIVE METABOLIC [id number] 13:36:00 Test Item Value Reference Range Comments TOTAL PROTEIN (BEAKER) 4.7 gm/dL 6.0-8.3 (test code = 770) ALBUMIN (BEAKER) (test 2.4 g/dL 3.5-5.0 code = 1145) ALKALINE PHOSPHATASE 66 U/L 40-150 (BEAKER) (test code = 346) BILIRUBIN TOTAL (BEAKER) 0.5 mg/dL 0.2-1.2 (test code = 377) SODIUM (BEAKER) (test code 141 meq/L 136-145 = 381) POTASSIUM (BEAKER) (test 3.9 meq/L 3.5-5.1 code = 379) CHLORIDE (BEAKER) (test 108 meq/L 98-107 code = 382) CO2 (BEAKER) (test code = 22 meq/L 22-29 355) BLOOD UREA NITROGEN 45 mg/dL 7-21 (BEAKER) (test code = 354) CREATININE (BEAKER) (test 1.07 mg/dL 0.57-1.25 code = 358) GLUCOSE RANDOM (BEAKER) 178 mg/dL 70-105 (test code = 652) CALCIUM (BEAKER) (test 7.7 mg/dL 8.4-10.2 code = 697) AST (SGOT) (BEAKER) (test 36 U/L 5-34 code = 353) ALT (SGPT) (BEAKER) (test 30 U/L 6-55 code = 347) EGFR (BEAKER) (test code = 49 mL/min/1.73 sq m E STIMATED GFR IS NOT 1092) ACCURATE CREA TININE CLEARANCE IN PRE DICTING GLOMERULAR FILTR ATION RATE. ESTIMATED GFR IS NOT APPLICABLE F OR DIALYSIS PATIENT S. Ammunition Officer ID - ROSIANGOperator ID - YOSSI MBASIC METABOLIC [id number] 13:12:00 Test Item Value Reference Range Comments SODIUM (BEAKER) (test 140 meq/L 136-145 code = 381) POTASSIUM (BEAKER) (test 3.9 meq/L 3.5-5.1 code = 379) CHLORIDE (BEAKER) (test 108 meq/L 98-107 code = 382) CO2 (BEAKER) (test code = 23 meq/L 22-29 355) BLOOD UREA NITROGEN 43 mg/dL 7-21 (BEAKER) (test code = 354) CREATININE (BEAKER) (test 1.06 mg/dL 0.57-1.25 code = 358) GLUCOSE RANDOM (BEAKER) 179 mg/dL 70-105 (test code = 652) CALCIUM (BEAKER) (test 7.6 mg/dL 8.4-10.2 code = 697) EGFR (BEAKER) (test code 49 mL/min/1.73 sq m EST IMATED GFR IS NOT = 1092) ACCURATE CREA TININE CLEARANCE IN PRE DICTING GLOMERULAR FILTR ATION RATE. ESTIMATED GFR IS NOT APPLICABLE F OR DIALYSIS PATIENT S. CBC (HEMOGRAM ONLY)2019-06-06 12:38:00 Test Item Value Reference Range Comments WHITE BLOOD CELL COUNT (BEAKER) (test code = 21.8 K/ L 3.5 -10.5 775) RED BLOOD CELL COUNT (BEAKER) (test code = 761) 2.71 M/ L 3.93-5.22 HEMOGLOBIN (BEAKER) (test code = 410) 8.1 GM/DL 11.2-15.7 HEMATOCRIT (BEAKER) (test code = 411) 25.0 % 34.1-44.9 MEAN CORPUSCULAR VOLUME (BEAKER) (test code = 92.3 fL 79 .4-94.8 753) MEAN CORPUSCULAR HEMOGLOBIN (BEAKER) (test code 29.9 pg 25.6-32.2 = 751) MEAN CORPUSCULAR HEMOGLOBIN CONC (BEAKER) (test 32.4 GM/DL 32.2-35.5 code = 752) RED CELL DISTRIBUTION WIDTH (BEAKER) (test code 14.8 % 11.7-14.4 = 412) PLATELET COUNT (BEAKER) (test code = 756) 240 K/CU MM 150-45 0 MEAN PLATELET VOLUME (BEAKER) (test code = 754) 12.4 fL 9.4-12.3 NUCLEATED RED BLOOD CELLS (BEAKER) (test code = 0 /100 WBC 0-0 413) POCT-GLUCOSE [id number] 12:24:00 Test Item Value Reference Range Comments POC-GLUCOSE METER (BEAKER) 160 mg/dL 70-110 : ADELITA RENEE AT [facility] [address] [facility] (test code = 1538) [facility], [address]: Ammunition Officer/Technic shanthi ID = [id number] for FLORI MORGAN KELLY CBC W/PLT COUNT & AUTO [id number] 07:10:00 Test Item Value Reference Range Comments WHITE BLOOD CELL COUNT (BEAKER) (test code = 22.3 K/ L 3.5 -10.5 775) RED BLOOD CELL COUNT (BEAKER) (test code = 761) 2.09 M/ L 3.93-5.22 HEMOGLOBIN (BEAKER) (test code = 410) 6.5 GM/DL 11.2-15.7 HEMATOCRIT (BEAKER) (test code = 411) 19.5 % 34.1-44.9 MEAN CORPUSCULAR VOLUME (BEAKER) (test code = 93.3 fL 79 .4-94.8 753) MEAN CORPUSCULAR HEMOGLOBIN (BEAKER) (test code 31.1 pg 25.6-32.2 = 751) MEAN CORPUSCULAR HEMOGLOBIN CONC (BEAKER) (test 33.3 GM/DL 32.2-35.5 code = 752) RED CELL DISTRIBUTION WIDTH (BEAKER) (test code 14.5 % 11.7-14.4 = 412) PLATELET COUNT (BEAKER) (test code = 756) 214 K/CU MM 150-45 0 MEAN PLATELET VOLUME (BEAKER) (test code = 754) 12.6 fL 9.4-12.3 NUCLEATED RED BLOOD CELLS (BEAKER) (test code = 0 /100 WBC 0-0 413) (CELLAVISION MANUAL DIFF)2019-06-06 07:10:00 Test Item Value Reference Range Comments NEUTROPHILS - REL (CELLAVISION)(BEAKER) (test 85 % code = 2816) LYMPHOCYTES - REL (CELLAVISION)(BEAKER) (test 3 % code = 2817) MONOCYTES - REL (CELLAVISION)(BEAKER) (test code 4 % = 2818) METAMYELOCYTES - REL (CELLAVISION)(BEAKER) (test 1 % 0-0 code = 2821) BANDS - REL (CELLAVISION)(BEAKER) (test code = 7 % 0 -10 2826) NEUTROPHILS - ABS (CELLAVISION)(BEAKER) (test 18.96 K/ul 1. 56-6.13 code = 2830) LYMPHOCYTES - ABS (CELLAVISION)(BEAKER) (test 0.67 K/ul 1. 18-3.74 code = 2831) MONOCYTES - ABS (CELLAVISION)(BEAKER) (test code 0.89 K/uL 0.24-0.36 = 2832) METAMYELOCYTES - ABS (CELLAVISION)(BEAKER) (test 0.22 K/uL 0.00-0.00 code = 2836) BANDS - ABS (CELLAVISION)(BEAKER) (test code = 1.56 K/uL 0 .00-0.80 2840) TOTAL COUNTED (BEAKER) (test code = 1351) 100 WBC MORPHOLOGY (BEAKER) (test code = 487) Normal GIANT PLATELETS (BEAKER) (test code = 313) Present LARGE PLT(BEAKER) (test code = 2156) Present POLYCHROMATOPHILLIC RBCS(BEAKER) (test code = 1+ few 478) HYPOCHROMIA (BEAKER) (test code = 963) 1+ few ANISOCYTOSIS (BEAKER) (test code = 961) 1+ few MACROCYTES (BEAKER) (test code = 964) 1+ few POIKILOCYTES (BEAKER) (test code = 966) 1+ few OVALOCYTES (BEAKER) (test code = 477) 1+ few ARTIFACT (CELLAVISION)(BEAKER) (test code = 3432) Present PLATELET CONCENTRATION (CELLAVISION)(BEAKER) Adequate (test code = 3438) Ammunition Officer ID - Risa Santos comments: Slide comments:RAD, CHEST, 1 VIEW, NON [id number] 07:06:00Reason for exam:->evaluate for pulmonary edemaShould this be performed at the bedside?->YesFINAL REPORT RAD, CHEST, 1 VIEW, NON DEPT INDICATION: evaluate for pulmonary edema COMPARISON: Prior day's exam FINDINGS: Portable frontal view of the chest. IMPRESSION: Support Lines: Unchanged right PICC. Lungs and pleura: Unchanged interstitial and pleural opacities. No pneumothorax.Heart and mediastinum: Stable contours. Additional findings: None. Signed: JR Pan Robert MDReport Verified Date/Time: 06/06/2019 07:06:37 Reading Location: [address] Neuro Reading Room BASIC METABOLIC [id number] 04:12:00 Test Item Value Reference Range Comments SODIUM (BEAKER) (test 140 meq/L 136-145 code = 381) POTASSIUM (BEAKER) (test 3.6 meq/L 3.5-5.1 code = 379) CHLORIDE (BEAKER) (test 106 meq/L 98-107 code = 382) CO2 (BEAKER) (test code = 26 meq/L 22-29 355) BLOOD UREA NITROGEN 44 mg/dL 7-21 (BEAKER) (test code = 354) CREATININE (BEAKER) (test 1.09 mg/dL 0.57-1.25 code = 358) GLUCOSE RANDOM (BEAKER) 160 mg/dL 70-105 (test code = 652) CALCIUM (BEAKER) (test 7.5 mg/dL 8.4-10.2 code = 697) EGFR (BEAKER) (test code 48 mL/min/1.73 sq m EST IMATED GFR IS NOT = 1092) ACCURATE CREA TININE CLEARANCE IN PRE DICTING GLOMERULAR FILTR ATION RATE. ESTIMATED GFR IS NOT APPLICABLE F OR DIALYSIS PATIENT S. Ammunition Officer ID - YOSSI [id number] 03:47:00 Test Item Value Reference Range Comments PHOSPHORUS (BEAKER) (test code = 604) 4.0 mg/dL 2.3-4.7 Ammunition Officer ID - YOSSI [id number] 03:47:00 Test Item Value Reference Range Comments MAGNESIUM (BEAKER) (test code = 627) 2.3 mg/dL 1.6-2.6 Ammunition Officer ID - YOSSI [id number] 03:47:00 Test Item Value Reference Range Comments PROTIME (BEAKER) (test code = 759) 15.9 seconds 11.9-14.2 INR (BEAKER) (test code = 370) 1.3 <=5.9 PARTIAL THROMBOPLASTIN TIME (BEAKER) (test code 29.7 seconds 22.5-36.0 = 760) Effective 08/27/2018: PT Reference Range ChangeNew: 11.9-14.2 Previous: 11.7- 14.7RECOMMENDED COUMADIN/WARFARIN INR THERAPY RANGESSTANDARD DOSE: 2.0-3.0 Includes: PROPHYLAXIS for venous thrombosis, systemic embolization; TREATMENT for venous thrombosis and/or pulmonary embolus.HIGH RISK: Target INR is2.5-3.5 for patients wiht mechanical heart valves.POCT-GLUCOSE [id number] 00:37:00 Test Item Value Reference Range Comments POC-GLUCOSE METER (BEAKER) 174 mg/dL 70-110 : ADELITA RENEE AT [facility] [address] [facility] (test code = 1538) [facility], [address]: Ammunition Officer/Technic shanthi ID = [id number] for MEHREEN, SENORA [id number] 20:33:00 Test Item Value Reference Range Comments AMYLASE (BEAKER) (test code = 239 U/L 25-125 Sp ecimen slightly hemolyzed 349) Ammunition Officer ID - JORDYN [id number] 20:33:00 Test Item Value Reference Range Comments LIPASE (BEAKER) (test code = 749) 102 U/L 8-78 Ammunition Officer ID - JORDYN EBASIC METABOLIC [id number] 20:01:00 Test Item Value Reference Range Comments SODIUM (BEAKER) (test 141 meq/L 136-145 code = 381) POTASSIUM (BEAKER) (test 3.7 meq/L 3.5-5.1 code = 379) CHLORIDE (BEAKER) (test 106 meq/L 98-107 code = 382) CO2 (BEAKER) (test code = 27 meq/L 22-29 355) BLOOD UREA NITROGEN 42 mg/dL 7-21 (BEAKER) (test code = 354) CREATININE (BEAKER) (test 1.12 mg/dL 0.57-1.25 code = 358) GLUCOSE RANDOM (BEAKER) 192 mg/dL 70-105 (test code = 652) CALCIUM (BEAKER) (test 7.6 mg/dL 8.4-10.2 code = 697) EGFR (BEAKER) (test code 46 mL/min/1.73 sq m EST IMATED GFR IS NOT = 1092) ACCURATE CREA TININE CLEARANCE IN PRE DICTING GLOMERULAR FILTR ATION RATE. ESTIMATED GFR IS NOT APPLICABLE F OR DIALYSIS PATIENT S. Ammunition Officer ID - JORDYN ERESPIRATORY PANEL [id number] 19:17:00 Test Item Value Reference Range Comments HUMAN METAPNEUMOVIRUS (BEAKER) (test Not detected Not detecte d, Equivocal code = 2683) RHINOVIRUS (BEAKER) (test code = 2684) Not detected Not detec renee, Equivocal INFLUENZA A (BEAKER) (test code = 2685) Not detected Not dete cted, Equivocal INFLUENZA A (NO SUBTYPE) (test code = 3606) INFLUENZA A SUBTYPE H1 (BEAKER) (test code = 2686) INFLUENZA A SUBTYPE H3 (BEAKER) (test code = 2687) INFLUENZA A SUBTYPE H1-2009 (BEAKER) (test code = 3198) INFLUENZA B (BEAKER) (test code = 2688) Not detected Not dete cted, Equivocal RESPIRATORY SYNCYTIAL VIRUS (BEAKER) Not detected Not detecte d, Equivocal (test code = 3199) PARAINFLUENZA VIRUS 1 (BEAKER) (test Not detected Not detecte d, Equivocal code = 2691) PARAINFLUENZA VIRUS 2 (BEAKER) (test Not detected Not detecte d, Equivocal code = 2692) PARAINFLUENZA VIRUS 3 (BEAKER) (test Not detected Not detecte d, Equivocal code = 2693) PARAINFLUENZA VIRUS 4 (BEAKER) (test Not detected Not detecte d, Equivocal code = 3200) ADENOVIRUS (BEAKER) (test code = 2694) Not detected Not detec renee, Equivocal CORONAVIRUS 229E (BEAKER) (test code = Not detected Not detec renee, Equivocal 3201) CORONAVIRUS HKU1 (BEAKER) (test code = Not detected Not detec renee, Equivocal 3202) CORONAVIRUS NL63 (BEAKER) (test code = Not detected Not detec renee, Equivocal 3203) CORONAVIRUS OC43 (BEAKER) (test code = Not detected Not detec renee, Equivocal 3204) BORDETELLA PERTUSSIS (BEAKER) (test Not detected Not detected , Equivocal code = 3205) CHLAMYDOPHILA PNEUMONIAE (BEAKER) (test Not detected Not dete cted, Equivocal code = 3206) MYCOPLASMA PNEUMONIAE (BEAKER) (test Not detected Not detecte d, Equivocal code = 3207) Other viruses and bacteria not targeted by this PCR panel cannot be excluded; therefore clinical correlation and follow up of serology, culture results, and other molecular studies is required. The results are not intended to be used as the sole means for clinical diagnosis or patient management decisions. This sample was tested at the [facility] using the [employer]Array Respiratory Panel. It is FDA cleared and has been verified and approved by the [facility] for clinical use on nasopharyngeal swab specimens.The performance of the FilmArrayRP has not been established in individuals who received influenza vaccine. Recent administration ofa nasal influenza vaccine may cause false positive results for Influenza A and/orInfluenza B.RESPIRATORY PANEL [id number] 17:56:00 Test Item Value Reference Range Comments HUMAN METAPNEUMOVIRUS (BEAKER) (test Not detected Not detecte d, Equivocal code = 2683) RHINOVIRUS (BEAKER) (test code = 2684) Not detected Not detec renee, Equivocal INFLUENZA A (BEAKER) (test code = 2685) Not detected Not dete cted, Equivocal INFLUENZA A (NO SUBTYPE) (test code = 3606) INFLUENZA A SUBTYPE H1 (BEAKER) (test code = 2686) INFLUENZA A SUBTYPE H3 (BEAKER) (test code = 2687) INFLUENZA A SUBTYPE H1-2009 (BEAKER) (test code = 3198) INFLUENZA B (BEAKER) (test code = 2688) Not detected Not dete cted, Equivocal RESPIRATORY SYNCYTIAL VIRUS (BEAKER) Not detected Not detecte d, Equivocal (test code = 3199) PARAINFLUENZA VIRUS 1 (BEAKER) (test Not detected Not detecte d, Equivocal code = 2691) PARAINFLUENZA VIRUS 2 (BEAKER) (test Not detected Not detecte d, Equivocal code = 2692) PARAINFLUENZA VIRUS 3 (BEAKER) (test Not detected Not detecte d, Equivocal code = 2693) PARAINFLUENZA VIRUS 4 (BEAKER) (test Not detected Not detecte d, Equivocal code = 3200) ADENOVIRUS (BEAKER) (test code = 2694) Not detected Not detec renee, Equivocal CORONAVIRUS 229E (BEAKER) (test code = Not detected Not detec renee, Equivocal 3201) CORONAVIRUS HKU1 (BEAKER) (test code = Not detected Not detec renee, Equivocal 3202) CORONAVIRUS NL63 (BEAKER) (test code = Not detected Not detec renee, Equivocal 3203) CORONAVIRUS OC43 (BEAKER) (test code = Not detected Not detec renee, Equivocal 3204) BORDETELLA PERTUSSIS (BEAKER) (test Not detected Not detected , Equivocal code = 3205) CHLAMYDOPHILA PNEUMONIAE (BEAKER) (test Not detected Not dete cted, Equivocal code = 3206) MYCOPLASMA PNEUMONIAE (BEAKER) (test Not detected Not detecte d, Equivocal code = 3207) Other viruses and bacteria not targeted by this PCR panel cannot be excluded; therefore clinical correlation and follow up of serology, culture results, and other molecular studies is required. The results are not intended to be used as the sole means for clinical diagnosis or patient management decisions. This sample was tested at the [facility] using the [employer] Respiratory Panel. It is FDA cleared and has been verified and approved by the [facility] for clinical use on nasopharyngeal swab specimens.The performance of the FilmArrayRP has not been established in individuals who received influenza vaccine. Recent administration ofa nasal influenza vaccine may cause false positive results for Influenza A and/orInfluenza B.BASIC METABOLIC [id number] 16:34:00 Test Item Value Reference Range Comments SODIUM (BEAKER) (test 140 meq/L 136-145 code = 381) POTASSIUM (BEAKER) (test 4.2 meq/L 3.5-5.1 Specime n slightly code = 379) hemolyzed CHLORIDE (BEAKER) (test 106 meq/L 98-107 code = 382) CO2 (BEAKER) (test code = 26 meq/L 22-29 355) BLOOD UREA NITROGEN 40 mg/dL 7-21 (BEAKER) (test code = 354) CREATININE (BEAKER) (test 1.12 mg/dL 0.57-1.25 Specim en slightly code = 358) hemolyzed GLUCOSE RANDOM (BEAKER) 124 mg/dL 70-105 (test code = 652) CALCIUM (BEAKER) (test 8.2 mg/dL 8.4-10.2 code = 697) EGFR (BEAKER) (test code 46 mL/min/1.73 sq m EST IMATED GFR IS NOT = 1092) ACCURATE CREA TININE CLEARANCE IN PRE DICTING GLOMERULAR FILTR ATION RATE. ESTIMATED GFR IS NOT APPLICABLE F OR DIALYSIS PATIENT S. Ammunition Officer ID - JORDYN CURIELDillon INFLUENZA A&B [id number] 15:55:00 Test Item Value Reference Range Comments RAPID INFLUENZA A AG (BEAKER) (test code = Negative Negat george, Inconclusive 1622) RAPID INFLUENZA B AG (BEAKER) (test code = Negative Negat george, Inconclusive 1623) CBC W/PLT COUNT & AUTO [id number] 13:43:00 Test Item Value Reference Range Comments WHITE BLOOD CELL COUNT (BEAKER) (test code = 27.9 K/ L 3.5 -10.5 775) RED BLOOD CELL COUNT (BEAKER) (test code = 761) 2.43 M/ L 3.93-5.22 HEMOGLOBIN (BEAKER) (test code = 410) 7.8 GM/DL 11.2-15.7 HEMATOCRIT (BEAKER) (test code = 411) 23.9 % 34.1-44.9 MEAN CORPUSCULAR VOLUME (BEAKER) (test code = 98.4 fL 79 .4-94.8 753) MEAN CORPUSCULAR HEMOGLOBIN (BEAKER) (test code 32.1 pg 25.6-32.2 = 751) MEAN CORPUSCULAR HEMOGLOBIN CONC (BEAKER) (test 32.6 GM/DL 32.2-35.5 code = 752) RED CELL DISTRIBUTION WIDTH (BEAKER) (test code 15.0 % 11.7-14.4 = 412) PLATELET COUNT (BEAKER) (test code = 756) 214 K/CU MM 150-45 0 MEAN PLATELET VOLUME (BEAKER) (test code = 754) 12.9 fL 9.4-12.3 NUCLEATED RED BLOOD CELLS (BEAKER) (test code = 0 /100 WBC 0-0 413) POCT-GLUCOSE [id number] 13:40:00 Test Item Value Reference Range Comments POC-GLUCOSE METER (BEAKER) 170 mg/dL 70-110 : [facility] [address] [facility] (test code = 1538) [place], [address]: Ammunition Officer/Technic shanthi ID = [id number] for RITESH URIBE BLOOD GAS, [id number] 13:21:00 Test Item Value Reference Range Comments PH VENOUS (BEAKER) (test code = 701) 7.33 7.32-7.42 PCO2 VENOUS (BEAKER) (test code = 755) 50 mmHg 41-51 PO2 VENOUS (BEAKER) (test code = 702) 42 mmHg 25-40 O2 SATURATION VENOUS (BEAKER) (test code = 703) 72.6 % 40.0-70.0 HCO3 VENOUS (BEAKER) (test code = 705) 26 mmol/L 21-29 BASE EXCESS VENOUS (BEAKER) (test code = 704) -0.4 mmol/L -2 .0-3.0 PATIENT TEMPERATURE (BEAKER) (test code = 1818) 37.4 C FIO2 (BEAKER) (test code = 1819) 21.0 % TISSUE [id number] 11:49:00Surgical Pathology Report Case: [id number] Authorizing Provider: Mohsen Dang MD Collected: 05/25/2019 1124 Ordering Location: [facility] PERIOPERATIVE Received: 05/25/2019 1132 SERVICES Pathologist: Edward Iverson MD Specimens: A) - Large Intestine, Colon - Rectosigmoid, Sigmoid, Upper Rectum for Show and Tell B) -Large Intestine, NOS, Distal Anastomotic Ring A. COLON, SIGMOID, RO BOTIC-ASSISTED LAPAROSCOPIC LOW ANTERIOR RESECTION:TUBULOVILLOUS ADENOMA, 4 CM, COMPLETELY EXCISED.NEGATIVE FOR HIGH GRADE DYSPLASIA OR INVASIVE CARCINOMA.DIVERTICULAR DISEASE WITH SEROSAL ADHESIONS TOADNEXA AND OVARY.SURGICAL MARGINS ARE UNINVOLVED BY TUBULOVILLOUS ADENOMA.TWENTY FOUR BENIGN LYMPH NODES (0/24)B. COLON, DISTAL ANASTOMOTIC RING:CONGESTED BENIGN COLONIC TISSUE. Signing Pathologist Direct Phone Line: [phone] signed by Edward Iverson MD on 06/05/2019 at 11:49 [id number] and postop diagnosis: mass of colon. Procedure: Robotic laparoscopy-assisted low anterior resection.A. Large intestine, colon - rectosigmoid. Sigmoid, upper rectum; large intestinePart A is received fresh for intraoperative consultation labeled with the patient's name, accession number and "rectosigmoid colon" with the additional description "sigmoid, upper rectum for show and tell" and consists of a 29 cm long and 2.5 cm in diameter segment of colon with a 3.0 x 1.5 x 1.0 cm attached ovary and a 15.0 x 5.0 x 1.0 cm attached fat.The serosa is horan-pink per surgeon designated area abutting the attached ovary that was adhesed to the pelvic wall. Tattoo dye is present proxi luanne and distally to the mass. On opening, a 4.0 x 2.5 cm fungating, polypoid lesion 18.5 cm from the proximal margin, 5.5 cm from the distal margin is seen, and 5.0 cm from the mesenteric margin. Thedistal margin includes a 5.0 cm staple line. The tumor projects 1.7 cm into the lumen of the colon. On cross sectioning, the tumor is 2.5 cm thick and does not appear to grossly penetrate through the wall into the attached fat. In sections overlying the attached ovary, the tumor does not appear to penetrate through the colonic wall.The remaining mucosa is horan with the normal folds. Multiple lymph nodes within the attached fat, from 0.2 x 0.2 x 0.2 to 1.5 x 0.8 x 0.5 cm, are identified. The cut surface of the largest lymph node displays a nodular, hemorrhagic cut surface. [employer] Hand sections aresubmitted.Multiple diverticula are identified throughout the specimen. [employer] Hand sections are submitted.Ink code:Blue-area per surgeon adhesed to pelvic wallSection code:A1, proximal margin A2, distal margin A3-A4, mesenteric margin, yellow machado proximal, red machado distal A5, ovarian/adenxal marginA6-A7, contiguous section of lesion overlying ovary, full-thickness sectionA8-A9, contiguous full-thickness sections of ujrnajL20, full-thickness section of gxewreF22, full-thickness section of azmslbT52, full-thickness section of axblvgF92, proximal uninvolved ftdliR93, distal uninvolved znbfmM05, medical service representative section diverticulum A16, largest lymph node ajxkazbpithhI98, two possible lymph hrfcaQ25, three possible lymph yyvsaE28, five possible lymph bvlxfQ33, six possible lymph nodesJP/ewAfter initial microscopic review, the following additional cassettes were submitted:A21-A23, 5 lymph node candidates in each cassette.A24-A35, remainder of area of adhesions inked blue (A25-A26 contiguous sections, A27-A29 and A30- A32 contiguous mirrored sections)Part B is received in formalin labeled with the patient's name, accession number and "colon, NOS" with the additional description "distal anastomotic ring" and consists of a 0.7 cm long x 1.4 x 1.0 cm ring of large intestine. The margin is inked blue and the specimen is radially sectioned. [employer] Hand sections are submitted in cassette B1. BRUNO /plSshimon and tell is requested by Dr. Dang. PART A1, INTRAOPERATIVE GROSS EXAM:COLON, RECTOSIGMOID, LOW ANTERIOR SECTION: - DISTAL MARGIN GROSSLY NEGATIVE FOR TUMORReported by Dr. Iverson to Dr. Dang at 11:47 a.m., on May 25, 2019.Performed.[facility], Department of Pathology,[address] [place] [id number], [facility], [facility], [address] [place] [id number], [facility], [facility] of [facility], [address] [place] [id number], OBW, CHEST, 1 VIEW, NON DEPT 2019-06-05 08:40:00Reason for exam:->evaluate for pulmonary edemaShould this be performed at the bedside?->YesFINAL REPORT RAD, CHEST, 1 VIEW, NON DEPT INDICATION: evaluate for pulmonary edema COMPARISON: Prior day's exam FINDINGS: Portable frontal view of the chest. IMPRESSION: Support Lines: PICC tip overlies the atriocaval junction Lungs and pleura: Bilateral effusions and adjacent compressive atelectasis No pneumothorax.Heart and mediastinum: Stable contours. Stable surgical changes.Additional findings: None. Signed: Belinda Durán MDRepjevon Verified Date/Time: 06/05/2019 08:40:29 Reading Location: [facility] Radiology Reading Room CBC W/PLT COUNT & AUTO [id number] 07:43:00 Test Item Value Reference Range Comments WHITE BLOOD CELL COUNT 28.3 K/ L 3.5-10.5 (BEAKER) (test code = 775) RED BLOOD CELL COUNT (BEAKER) 2.40 M/ L 3.93-5.22 (test code = 761) HEMOGLOBIN (BEAKER) (test 7.4 GM/DL 11.2-15.7 code = 410) HEMATOCRIT (BEAKER) (test 22.5 % 34.1-44.9 code = 411) MEAN CORPUSCULAR VOLUME 93.8 fL 79.4-94.8 Discorda nt MCV results (BEAKER) (test code = 753) vadim red to previous results; clinica l correlation requ ired. MEAN CORPUSCULAR HEMOGLOBIN 30.8 pg 25.6-32.2 (BEAKER) (test code = 751) MEAN CORPUSCULAR HEMOGLOBIN 32.9 GM/DL 32.2-35.5 CONC (BEAKER) (test code = 752) RED CELL DISTRIBUTION WIDTH 14.5 % 11.7-14.4 (BEAKER) (test code = 412) PLATELET COUNT (BEAKER) (test 191 K/CU MM 150-450 code = 756) MEAN PLATELET VOLUME (BEAKER) 12.9 fL 9.4-12.3 (test code = 754) NUCLEATED RED BLOOD CELLS 0 /100 WBC 0-0 (BEAKER) (test code = 413) (CELLAVISION MANUAL DIFF)2019-06-05 07:43:00 Test Item Value Reference Range Comments NEUTROPHILS - REL (CELLAVISION)(BEAKER) (test 92 % code = 2816) LYMPHOCYTES - REL (CELLAVISION)(BEAKER) (test 1 % code = 2817) MONOCYTES - REL (CELLAVISION)(BEAKER) (test code 3 % = 2818) METAMYELOCYTES - REL (CELLAVISION)(BEAKER) (test 1 % 0-0 code = 2821) BANDS - REL (CELLAVISION)(BEAKER) (test code = 3 % 0 -10 2826) NEUTROPHILS - ABS (CELLAVISION)(BEAKER) (test 26.04 K/ul 1. 56-6.13 code = 2830) LYMPHOCYTES - ABS (CELLAVISION)(BEAKER) (test 0.28 K/ul 1. 18-3.74 code = 2831) MONOCYTES - ABS (CELLAVISION)(BEAKER) (test code 0.85 K/uL 0.24-0.36 = 2832) METAMYELOCYTES - ABS (CELLAVISION)(BEAKER) (test 0.28 K/uL 0.00-0.00 code = 2836) BANDS - ABS (CELLAVISION)(BEAKER) (test code = 0.85 K/uL 0 .00-0.80 2840) TOTAL COUNTED (BEAKER) (test code = 1351) 100 WBC MORPHOLOGY (BEAKER) (test code = 487) Normal PLT MORPHOLOGY (BEAKER) (test code = 486) Normal ANISOCYTOSIS (BEAKER) (test code = 961) 1+ few MICROCYTES (BEAKER) (test code = 965) 1+ few ARTIFACT (CELLAVISION)(BEAKER) (test code = 3432) Present PLATELET CONCENTRATION (CELLAVISION)(BEAKER) Adequate (test code = 3438) Ammunition Officer ID - Rosario OverholtUser comments: Slide comments:[id number] 06:05:00 Test Item Value Reference Range Comments PROTIME (BEAKER) (test code = 759) 15.6 seconds 11.9-14.2 INR (BEAKER) (test code = 370) 1.3 <=5.9 PARTIAL THROMBOPLASTIN TIME (BEAKER) (test code 32.3 seconds 22.5-36.0 = 760) Effective 08/27/2018: PT Reference Range ChangeNew: 11.9-14.2 Previous: 11.7- 14.7RECOMMENDED COUMADIN/WARFARIN INR THERAPY RANGESSTANDARD DOSE: 2.0-3.0 Includes: PROPHYLAXIS for venous thrombosis, systemic embolization; TREATMENT for venous thrombosis and/or pulmonary embolus.HIGH RISK: Target INR is2.5-3.5 for patients wiht mechanical heart valves.BASIC METABOLIC [id number] 05:45:00 Test Item Value Reference Range Comments SODIUM (BEAKER) (test 141 meq/L 136-145 code = 381) POTASSIUM (BEAKER) (test 3.4 meq/L 3.5-5.1 code = 379) CHLORIDE (BEAKER) (test 103 meq/L 98-107 code = 382) CO2 (BEAKER) (test code = 31 meq/L 22-29 355) BLOOD UREA NITROGEN 39 mg/dL 7-21 (BEAKER) (test code = 354) CREATININE (BEAKER) (test 1.08 mg/dL 0.57-1.25 code = 358) GLUCOSE RANDOM (BEAKER) 134 mg/dL 70-105 (test code = 652) CALCIUM (BEAKER) (test 7.6 mg/dL 8.4-10.2 code = 697) EGFR (BEAKER) (test code 48 mL/min/1.73 sq m EST IMATED GFR IS NOT = 1092) ACCURATE CREA TININE CLEARANCE IN PRE DICTING GLOMERULAR FILTR ATION RATE. ESTIMATED GFR IS NOT APPLICABLE F OR DIALYSIS PATIENT S. Ammunition Officer ID - YOSSI [id number] 05:20:00 Test Item Value Reference Range Comments PHOSPHORUS (BEAKER) (test code = 604) 3.5 mg/dL 2.3-4.7 Ammunition Officer ID - YOSSI [id number] 05:20:00 Test Item Value Reference Range Comments MAGNESIUM (BEAKER) (test code = 627) 2.1 mg/dL 1.6-2.6 Ammunition Officer ID - YOSSI [facility]BC (HEMOGRAM ONLY)2019-06-04 19:17:00 Test Item Value Reference Range Comments WHITE BLOOD CELL COUNT (BEAKER) (test code = 28.7 K/ L 3.5 -10.5 775) RED BLOOD CELL COUNT (BEAKER) (test code = 761) 2.53 M/ L 3.93-5.22 HEMOGLOBIN (BEAKER) (test code = 410) 8.2 GM/DL 11.2-15.7 HEMATOCRIT (BEAKER) (test code = 411) 25.4 % 34.1-44.9 MEAN CORPUSCULAR VOLUME (BEAKER) (test code = 100.4 fL 79 .4-94.8 753) MEAN CORPUSCULAR HEMOGLOBIN (BEAKER) (test code 32.4 pg 25.6-32.2 = 751) MEAN CORPUSCULAR HEMOGLOBIN CONC (BEAKER) (test 32.3 GM/DL 32.2-35.5 code = 752) RED CELL DISTRIBUTION WIDTH (BEAKER) (test code 15.5 % 11.7-14.4 = 412) PLATELET COUNT (BEAKER) (test code = 756) 182 K/CU MM 150-45 0 MEAN PLATELET VOLUME (BEAKER) (test code = 754) 13.2 fL 9.4-12.3 NUCLEATED RED BLOOD CELLS (BEAKER) (test code = 0 /100 WBC 0-0 413) BASIC METABOLIC [id number] 18:21:00 Test Item Value Reference Range Comments SODIUM (BEAKER) (test 138 meq/L 136-145 code = 381) POTASSIUM (BEAKER) (test 3.7 meq/L 3.5-5.1 Specime n slightly code = 379) hemolyzed CHLORIDE (BEAKER) (test 100 meq/L 98-107 code = 382) CO2 (BEAKER) (test code = 28 meq/L 22-29 355) BLOOD UREA NITROGEN 38 mg/dL 7-21 (BEAKER) (test code = 354) CREATININE (BEAKER) (test 1.09 mg/dL 0.57-1.25 Specim en slightly code = 358) hemolyzed GLUCOSE RANDOM (BEAKER) 157 mg/dL 70-105 (test code = 652) CALCIUM (BEAKER) (test 7.4 mg/dL 8.4-10.2 code = 697) EGFR (BEAKER) (test code 48 mL/min/1.73 sq m EST IMATED GFR IS NOT = 1092) ACCURATE CREA TININE CLEARANCE IN PRE DICTING GLOMERULAR FILTR ATION RATE. ESTIMATED GFR IS NOT APPLICABLE F OR DIALYSIS PATIENT S. Ammunition Officer ID - BSURINALYSIS W/ REFLEX URINE [id number] 18:13:00 Test Item Value Reference Range Comments COLOR (BEAKER) (test code = 470) Light Yellow CLARITY (BEAKER) (test code = 469) Clear SPECIFIC GRAVITY UA (BEAKER) (test code = 468) 1.029 1 .001-1.035 PH UA (BEAKER) (test code = 467) 8.5 5.0-8.0 PROTEIN UA (BEAKER) (test code = 464) 70 mg/dL Negative GLUCOSE UA (BEAKER) (test code = 365) Negative Negative KETONES UA (BEAKER) (test code = 371) Negative Negative BILIRUBIN UA (BEAKER) (test code = 462) Negative Negative BLOOD UA (BEAKER) (test code = 461) Moderate Negative NITRITE UA (BEAKER) (test code = 465) Negative Negative LEUKOCYTE ESTERASE UA (BEAKER) (test code = Negative Nega tive 466) UROBILINOGEN UA (BEAKER) (test code = 463) 0.2 mg/dL 0.2-1 .0 RBC UA (BEAKER) (test code = 519) 14 /HPF WBC UA (BEAKER) (test code = 520) 3 /HPF BACTERIA (BEAKER) (test code = 517) Rare SQUAMOUS EPITHELIAL (BEAKER) (test code = 516) < /HPF SOURCE(BEAKER) (test code = 2795) Ammunition Officer ID - [auto]Ammunition Officer ID - techPOCT-GLUCOSE [id number] 17:31:00 Test Item Value Reference Range Comments POC-GLUCOSE METER (BEAKER) 131 mg/dL 70-110 : ADEL[facility] RENEE AT [facility] [address] [facility] (test code = 1538) [place], [address]: Ammunition Officer/Technic shanthi ID = [id number] for HENRIQUEZKYAW IVIA CT, [id number] 17:08:00IV and PO contrastFINAL REPORT CT, CHEST, WITH CONTRAST, CT, ABDOMEN \\T\\ PELVIS, WITH IV CONTRAST INDICATION: Pneumonia COMPARISON: CT abdomen pelvis dated 05/29/2019 TECHNIQUE: Post contrast axially oriented images were obtained from the thoracic inlet through the pelvis. Coronal and sagittal reformats were provided. DOSE REDUCTION: Dose modulation, iterative reconstruction, and/or weight-based adjustment of the mA/kV was utilized to reduce the radiation dose to as low as reasonably achievable. FINDINGS: Chest:Lungs and Pleura: Small right and moderate left pleural effusion with adjacent consolidative airspace opacities in the bilateral lower lobe favored represent atelectasis. Scattered bilateral Tree-in-bud groundglass airspace opacities predominantly in the right upper lobe and right middle lobe concerning for atypical infection. Mild centrilobular emphysematous changes. No pneumothorax. Airspace opacities limits evaluation for suspicious pulmonary nodules.Central airways: Patent.Mediastinum: No adenopathy. Heterogeneous appearance of bilateral thyroid glands with 1.6 cm left thyroid nodule associated coarse calcification. Moderate hiatal hernia with thickening of the distal esophageal wall, incompletely evaluated on this examination.Heart and pericardium: Normal.Great vessels: Normal in caliber Right upper extremity PICC with tip terminating in the cavoatrial junction. Regional skeletal structures: Intact. Abdomen and Pelvis:Liver: No parenchymal abnormality.Gallbladder and biliary tree: The gallbladder is contracted. No ductal dilation or stones.Pancreas: No acute findings.Spleen: Subcentimeter splenic lesion is too small to characterize and remains indeterminate.Adrenal Glands: No acute findings.Kidneys and ureters: Multiple subcentimeter hypodense bilateral renal lesions are again seen, incompletely characterized on this examination. Right lower pole simple renal cyst measuring 1.5 cm right upper pole isodense 1.6 cm nodule is indeterminate. No nephrolithiasis. No hydronep hrosis or hydroureter.Bladder and reproductive organs: The bladder is decompressed with Fang catheter present. Gas in the anterior bladder lumen may be related to instrumentation. Postsurgical changesof a hysterectomy. No suspicious adnexal lesions. Stomach and Duodenum: No acute findings.Small and l arge intestine: Postsurgical changes of the lower anterior resection with surgical chain sutures therectosigmoid junction. There is thickening of the wall of the descending colon, somewhat improved inthe interval. Interval resolution of the previously seen distended loops of small bowel throughout the abdomen. Small bowel containing left inguinal hernia.Appendix: Not identified.Major vascular structures: Normal aortic caliber. 5 mm calcified splenic artery aneurysm.Peritoneum and retroperitoneum: New organizing fluid collections in the left upper quadrant, adjacent to the anterior aspect of the left kidney and inferior pancreas measuring 5.8 x 4.0 cm medially and 4.5 x 2.8 cm laterally. Inflammatory changes extend into the left paracolic gutter. No definite extraluminal contrast material is identified no pneumoperitoneum.. Skeleton: Multilevel degenerative changes of the lumbar spine. No acute fracture or aggressive osseous lesion. Severe degenerative changes of the right hip.. AdditionalFindings: Total body anasarca. Surgical skin darlene over the anterior pelvis. Minimal subcutaneous emphysema over the left lateral anterior abdominal wall may be postsurgical however correlate clinically. IMPRESSION:Small right and moderate left pleural effusion with adjacent consolidative airspace o pacities in the bilateral lower lobe favored represent atelectasis. Scattered bilateral Vuwa-du-vhnnsehfixuwki airspace opacities predominantly in the right upper lobe and right middle lobe concerning for atypical infection such as aspiration. 1.6 cm left thyroid nodule associated coarse calcification recommend further evaluation with dedicated thyroid ultrasound on a nonemergent basis.. Moderatehiatal hernia with thickening of the distal esophageal wall, concerning for esophagitis. Correlate clinically. Right upper pole isodense 1.6 cm nodule is indeterminate however recommend further evaluation dedicated renal protocol cross-sectional imaging to exclude renal cell carcinoma.. Postsurgicalchanges of the lower anterior resection with interval improvement in wall thickening of the descending colon, and resolution of the previously seen distended loops of small bowel throughout the abdomen. New organizing fluid collections in the left upper quadrant, adjacent to the anterior aspect of the left kidney and inferior pancreas measuring 5.8 x 4.0 cm medially and 4.5 x 2.8 cm laterally. Inflammatory changes extend into the left paracolic gutter. Fluid collections are likely not drainable currently however recommend continued close attention on follow-up imaging. Signed: Lisa Page [facility] Verified Date/Time: 06/04/2019 17:08:30 CT, CHEST, WITH [id number] 17:08:00 Anesthesia:->NoneFINAL REPORT CT, CHEST, WITH CONTRAST, CT, ABDOMEN \\T\\ PELVIS, WITH IV CONTRAST INDICATION: Pneumonia COMPARISON: CT abdomen pelvis dated 05/29/2019 TECHNIQUE: Post contrast axially oriented images were obtained from the thoracic inlet through the pelvis. Coronal and sagittal reformats were provided. DOSE REDUCTION: Dose modulation, iterative reconstruction, and/or weight-basedadjustment of the mA/kV was utilized to reduce the radiation dose to as low as reasonably achievable. FINDINGS: Chest:Lungs and Pleura: Small right and moderate left pleural effusion with adjacent consolidative airspace opacities in the bilateral lower lobe favored represent atelectasis. Scattered bilateral Tree-in-bud groundglass airspace opacities predominantly in the right upper lobe and right middle lobe concerning for atypical infection. Mild centrilobular emphysematous changes. No pneumothorax. Airspace opacities limits evaluation for suspicious pulmonary nodules.Central airways: Patent.Mediastinum: No adenopathy. Heterogeneous appearance of bilateral thyroid glands with 1.6 cm left thyroid nodule associated coarse calcification. Moderate hiatal hernia with thickening of the distal esophageal wall, incompletely evaluated on this examination.Heart and pericardium: Normal.Great vessels: Normal in caliber Right upper extremity PICC with tip terminating in the cavoatrial junction. Regional skeletal structures: Intact. Abdomen and Pelvis:Liver: No parenchymal abnormality.Gallbladder and biliary tree: The gallbladder is contracted. No ductal dilation or stones.Pancreas: No acute findings.Spleen: Subcentimeter splenic lesion is too small to characterize and remains indeterminate.Adrenal Glands: No acute findings.Kidneys and ureters: Multiple subcentimeter hypodense bilateral renal lesions are again seen, incompletely characterized on this examination. Right lower pole simple renal cyst measuring 1.5 cm right upper pole isodense 1.6 cm nodule is indeterminate. No nephrolithiasis. No hydronephrosis or hydroureter.Bladder and reproductive organs: The bladder is decompressed with Fang catheter present. Gas in the anterior bladder lumen may be related to instrumentation. Postsurgical changesof a hysterectomy. No suspicious adnexal lesions. Stomach and Duodenum: No acute findings.Small and large intestine: Postsurgical changes of the lower anterior resection with surgical chain sutures therectosigmoid junction. There is thickening of the wall of the descending colon, somewhat improved inthe interval. Interval resolution of the previously seen distended loops of small bowel throughout the abdomen. Small bowel containing left inguinal hernia.Appendix: Not identified.Major vascular struct ures: Normal aortic caliber. 5 mm calcified splenic artery aneurysm.Peritoneum and retroperitoneum: New organizing fluid collections in the left upper quadrant, adjacent to the anterior aspect of the left kidney and inferior pancreas measuring 5.8 x 4.0 cm medially and 4.5 x 2.8 cm laterally. Inflammat ory changes extend into the left paracolic gutter. No definite extraluminal contrast material is identified no pneumoperitoneum.. Skeleton: Multilevel degenerative changes of the lumbar spine. No acute fracture or aggressive osseous lesion. Severe degenerative changes of the right hip.. Additional Findings: Total body anasarca. Surgical skin darlene over the anterior pelvis. Minimal subcutaneous emphysema over the left lateral anterior abdominal wall may be postsurgical however correlate clinically. IMPRESSION:Small right and moderate left pleural effusion with adjacent consolidative airspace opacities in the bilateral lower lobe favored represent atelectasis. Scattered bilateral Ujng-cf-wqqrfnmagxadpk airspace opacities predominantly in the right upper lobe and right middle lobe concerning for atypical infection such as aspiration. 1.6 cm left thyroid nodule associated coarse calcification recommend further evaluation with dedicated thyroid ultrasound on a nonemergent basis.. Moderate hiatal hernia with thickening of the distal esophageal wall, concerning for esophagitis. Correlate clinically. Right upper pole isodense 1.6 cm nodule is indeterminate however recommend further evaluation dedicated renal protocol cross-sectional imaging to exclude renal cell carcinoma.. Postsurgicalchanges of the lower anterior resection with interval improvement in wall thickening of the descending colon, and resolution of the previously seen distended loops of small bowel throughout the abdomen. New organizing fluid collections in the left upper quadrant, adjacent to the anterior aspect of the left kidney and inferior pancreas measuring 5.8 x 4.0 cm medially and 4.5 x 2.8 cm laterally. Inflammatory changes extend into the left paracolic gutter. Fluid collections are likely not drainable currently however recommend continued close attention on follow-up imaging. Signed: Lisa Page [facility] Verified Date/Time: 06/04/2019 17:08:30 [facility] METABOLIC [id number] 15:26:00 Test Item Value Reference Range Comments SODIUM (BEAKER) (test 144 meq/L 136-145 code = 381) POTASSIUM (BEAKER) (test 3.6 meq/L 3.5-5.1 code = 379) CHLORIDE (BEAKER) (test 103 meq/L 98-107 code = 382) CO2 (BEAKER) (test code = 35 meq/L 22-29 355) BLOOD UREA NITROGEN 37 mg/dL 7-21 (BEAKER) (test code = 354) CREATININE (BEAKER) (test 1.18 mg/dL 0.57-1.25 code = 358) GLUCOSE RANDOM (BEAKER) 140 mg/dL 70-105 (test code = 652) CALCIUM (BEAKER) (test 7.6 mg/dL 8.4-10.2 code = 697) EGFR (BEAKER) (test code 44 mL/min/1.73 sq m EST IMATED GFR IS NOT = 1092) ACCURATE CREA TININE CLEARANCE IN PRE DICTING GLOMERULAR FILTR ATION RATE. ESTIMATED GFR IS NOT APPLICABLE F OR DIALYSIS PATIENT S. Ammunition Officer ID - AAHAMIDBASIC METABOLIC [id number] 13:54:00 Test Item Value Reference Range Comments SODIUM (BEAKER) (test 132 meq/L 136-145 code = 381) POTASSIUM (BEAKER) (test 6.5 meq/L 3.5-5.1 Specime n slightly code = 379) hemolyzed CHLORIDE (BEAKER) (test 94 meq/L 98-107 code = 382) CO2 (BEAKER) (test code = 27 meq/L 22-29 355) BLOOD UREA NITROGEN 34 mg/dL 7-21 (BEAKER) (test code = 354) CREATININE (BEAKER) (test 1.47 mg/dL 0.57-1.25 Specim en slightly code = 358) hemolyzed GLUCOSE RANDOM (BEAKER) 785 mg/dL 70-105 (test code = 652) CALCIUM (BEAKER) (test 6.9 mg/dL 8.4-10.2 code = 697) EGFR (BEAKER) (test code 34 mL/min/1.73 sq m EST IMATED GFR IS NOT = 1092) ACCURATE CREA TININE CLEARANCE IN PRE DICTING GLOMERULAR FILTR ATION RATE. ESTIMATED GFR IS NOT APPLICABLE F OR DIALYSIS PATIENT S. Ammunition Officer ID - [id number] 13:48:00 Test Item Value Reference Range Comments MAGNESIUM (BEAKER) (test code = 2.5 mg/dL 1.6-2.6 Specimen slightly hemolyzed 627) Ammunition Officer ID - AAHAMIDPOCT-GLUCOSE [id number] 11:57:00 Test Item Value Reference Range Comments POC-GLUCOSE METER (BEAKER) 161 mg/dL 70-110 : ADELITA RENEE AT [facility] [address] (test code = 1538) [place], [address]: Ammunition Officer/Technic shanthi ID = [id number] for KYAW HENRIQUEZ CBC (HEMOGRAM ONLY)2019-06-04 11:25:00 Test Item Value Reference Range Comments WHITE BLOOD CELL COUNT (BEAKER) (test code = 27.8 K/ L 3.5 -10.5 775) RED BLOOD CELL COUNT (BEAKER) (test code = 761) 2.56 M/ L 3.93-5.22 HEMOGLOBIN (BEAKER) (test code = 410) 8.2 GM/DL 11.2-15.7 HEMATOCRIT (BEAKER) (test code = 411) 25.0 % 34.1-44.9 MEAN CORPUSCULAR VOLUME (BEAKER) (test code = 97.7 fL 79 .4-94.8 753) MEAN CORPUSCULAR HEMOGLOBIN (BEAKER) (test code 32.0 pg 25.6-32.2 = 751) MEAN CORPUSCULAR HEMOGLOBIN CONC (BEAKER) (test 32.8 GM/DL 32.2-35.5 code = 752) RED CELL DISTRIBUTION WIDTH (BEAKER) (test code 14.8 % 11.7-14.4 = 412) PLATELET COUNT (BEAKER) (test code = 756) 195 K/CU MM 150-45 0 MEAN PLATELET VOLUME (BEAKER) (test code = 754) 12.7 fL 9.4-12.3 NUCLEATED RED BLOOD CELLS (BEAKER) (test code = 0 /100 WBC 0-0 413) (CELLAVISION MANUAL DIFF)2019-06-04 07:47:00 Test Item Value Reference Range Comments NEUTROPHILS - REL (CELLAVISION)(BEAKER) (test 94 % code = 2816) LYMPHOCYTES - REL (CELLAVISION)(BEAKER) (test 3 % code = 2817) MONOCYTES - REL (CELLAVISION)(BEAKER) (test code 3 % = 2818) NEUTROPHILS - ABS (CELLAVISION)(BEAKER) (test 22.94 K/ul 1. 56-6.13 code = 2830) LYMPHOCYTES - ABS (CELLAVISION)(BEAKER) (test 0.73 K/ul 1. 18-3.74 code = 2831) MONOCYTES - ABS (CELLAVISION)(BEAKER) (test code 0.73 K/uL 0.24-0.36 = 2832) TOTAL COUNTED (BEAKER) (test code = 1351) 100 PLT MORPHOLOGY (BEAKER) (test code = 486) Normal TOXIC GRANULATION (BEAKER) (test code = 771) Present POLYCHROMATOPHILLIC RBCS(BEAKER) (test code = 1+ few 478) HYPOCHROMIA (BEAKER) (test code = 963) 1+ few MACROCYTES (BEAKER) (test code = 964) 1+ few ARTIFACT (CELLAVISION)(BEAKER) (test code = 3432) Present PLATELET CONCENTRATION (CELLAVISION)(BEAKER) Adequate (test code = 3438) Ammunition Officer ID - [id number] ID - Yanet Huertas comments: Slide comments:RAD, CHEST, 1 VIEW, NON [id number] 06:17:00Reason for exam:->evaluate for pulmonary edemaShould this be performed at the bedside?->YesFINAL REPORT RAD, CHEST, 1 VIEW, NON DEPT INDICATION: evaluate for pulmonary edema COMPARISON: Prior day's exam FINDINGS: Portable frontal view of the chest. IMPRESSION: Support Lines: Stable right PICC Lungs and pleura: Unchanged airspace and pleural opacities. No pneumothorax.Heart and mediastinum: Stable contours. Additional findings: None. Signed: Daphne Gardner MDReport Verified Date/Time: 06/04/2019 06:17:19 POCT-GLUCOSE [id number] 06:13:00 Test Item Value Reference Range Comments POC-GLUCOSE METER (BEAKER) 160 mg/dL 70-110 : ADELITA RENEE AT [facility] [address] [facility] (test code = 1538) [facility], [address]: Ammunition Officer/Technic shanthi ID = [id number] for GBOBOH, OVIG UE BASIC METABOLIC [id number] 04:38:00 Test Item Value Reference Range Comments SODIUM (BEAKER) (test 144 meq/L 136-145 code = 381) POTASSIUM (BEAKER) (test 3.1 meq/L 3.5-5.1 code = 379) CHLORIDE (BEAKER) (test 98 meq/L 98-107 code = 382) CO2 (BEAKER) (test code = 39 meq/L 22-29 355) BLOOD UREA NITROGEN 37 mg/dL 7-21 (BEAKER) (test code = 354) CREATININE (BEAKER) (test 1.20 mg/dL 0.57-1.25 code = 358) GLUCOSE RANDOM (BEAKER) 173 mg/dL 70-105 (test code = 652) CALCIUM (BEAKER) (test 7.4 mg/dL 8.4-10.2 code = 697) EGFR (BEAKER) (test code 43 mL/min/1.73 sq m EST IMATED GFR IS NOT = 1092) ACCURATE CREA TININE CLEARANCE IN PRE DICTING GLOMERULAR FILTR ATION RATE. ESTIMATED GFR IS NOT APPLICABLE F OR DIALYSIS PATIENT S. Ammunition Officer ID - AVERY [id number] 04:26:00 Test Item Value Reference Range Comments PHOSPHORUS (BEAKER) (test code = 604) 3.7 mg/dL 2.3-4.7 Ammunition Officer ID - AVERY [id number] 04:26:00 Test Item Value Reference Range Comments MAGNESIUM (BEAKER) (test code = 627) 2.0 mg/dL 1.6-2.6 Ammunition Officer ID - AVERY [id number] 04:19:00 Test Item Value Reference Range Comments PROTIME (BEAKER) (test code = 759) 15.3 seconds 11.9-14.2 INR (BEAKER) (test code = 370) 1.2 <=5.9 PARTIAL THROMBOPLASTIN TIME (BEAKER) (test code 28.8 seconds 22.5-36.0 = 760) Effective 08/27/2018: PT Reference Range ChangeNew: 11.9-14.2 Previous: 11.7- 14.7RECOMMENDED COUMADIN/WARFARIN INR THERAPY RANGESSTANDARD DOSE: 2.0-3.0 Includes: PROPHYLAXIS for venous thrombosis, systemic embolization; TREATMENT for venous thrombosis and/or pulmonary embolus.HIGH RISK: Target INR is2.5-3.5 for patients wiht mechanical heart valves.CBC W/PLT COUNT & AUTO [id number] 04:10:00 Test Item Value Reference Range Comments WHITE BLOOD CELL COUNT (BEAKER) (test code = 24.1 K/ L 3.5 -10.5 775) RED BLOOD CELL COUNT (BEAKER) (test code = 761) 2.05 M/ L 3.93-5.22 HEMOGLOBIN (BEAKER) (test code = 410) 6.3 GM/DL 11.2-15.7 HEMATOCRIT (BEAKER) (test code = 411) 20.2 % 34.1-44.9 MEAN CORPUSCULAR VOLUME (BEAKER) (test code = 98.5 fL 79 .4-94.8 753) MEAN CORPUSCULAR HEMOGLOBIN (BEAKER) (test code 30.7 pg 25.6-32.2 = 751) MEAN CORPUSCULAR HEMOGLOBIN CONC (BEAKER) (test 31.2 GM/DL 32.2-35.5 code = 752) RED CELL DISTRIBUTION WIDTH (BEAKER) (test code 13.6 % 11.7-14.4 = 412) PLATELET COUNT (BEAKER) (test code = 756) 176 K/CU MM 150-45 0 MEAN PLATELET VOLUME (BEAKER) (test code = 754) 13.1 fL 9.4-12.3 NUCLEATED RED BLOOD CELLS (BEAKER) (test code = 0 /100 WBC 0-0 413) BASIC METABOLIC [id number] 19:15:00 Test Item Value Reference Range Comments SODIUM (BEAKER) (test 145 meq/L 136-145 code = 381) POTASSIUM (BEAKER) (test 3.5 meq/L 3.5-5.1 code = 379) CHLORIDE (BEAKER) (test 97 meq/L 98-107 code = 382) CO2 (BEAKER) (test code = 41 meq/L 22-29 355) BLOOD UREA NITROGEN 36 mg/dL 7-21 (BEAKER) (test code = 354) CREATININE (BEAKER) (test 1.16 mg/dL 0.57-1.25 code = 358) GLUCOSE RANDOM (BEAKER) 170 mg/dL 70-105 (test code = 652) CALCIUM (BEAKER) (test 7.7 mg/dL 8.4-10.2 code = 697) EGFR (BEAKER) (test code 44 mL/min/1.73 sq m EST IMATED GFR IS NOT = 1092) ACCURATE CREA TININE CLEARANCE IN PRE DICTING GLOMERULAR FILTR ATION RATE. ESTIMATED GFR IS NOT APPLICABLE F OR DIALYSIS PATIENT S. Ammunition Officer ID - [id number] 19:14:00 Test Item Value Reference Range Comments PHOSPHORUS (BEAKER) (test code = 604) 4.0 mg/dL 2.3-4.7 Ammunition Officer ID - [id number] 19:14:00 Test Item Value Reference Range Comments MAGNESIUM (BEAKER) (test code = 627) 2.1 mg/dL 1.6-2.6 Ammunition Officer ID - DBPOCT-GLUCOSE [id number] 18:38:00 Test Item Value Reference Range Comments POC-GLUCOSE METER (BEAKER) 160 mg/dL 70-110 : ADELITA RENEE AT [facility] [address] [facility] (test code = 1538) [facility], [address]: Ammunition Officer/Technic shanthi ID = [id number] for KATIE HUSTON BASIC METABOLIC [id number] 18:13:00 Test Item Value Reference Range Comments SODIUM (BEAKER) (test 142 meq/L 136-145 code = 381) POTASSIUM (BEAKER) (test 5.4 meq/L 3.5-5.1 Specime n moderately code = 379) hemolyzed CHLORIDE (BEAKER) (test 95 meq/L 98-107 code = 382) CO2 (BEAKER) (test code = 39 meq/L 22-29 355) BLOOD UREA NITROGEN 33 mg/dL 7-21 (BEAKER) (test code = 354) CREATININE (BEAKER) (test 1.28 mg/dL 0.57-1.25 Specim en moderately code = 358) hemolyzed GLUCOSE RANDOM (BEAKER) 567 mg/dL 70-105 (test code = 652) CALCIUM (BEAKER) (test 7.5 mg/dL 8.4-10.2 code = 697) EGFR (BEAKER) (test code 40 mL/min/1.73 sq m EST IMATED GFR IS NOT = 1092) ACCURATE CREA TININE CLEARANCE IN PRE DICTING GLOMERULAR FILTR ATION RATE. ESTIMATED GFR IS NOT APPLICABLE F OR DIALYSIS PATIENT S. Ammunition Officer ID - BAKARIGBLOOD [id number] 18:01:00 Test Item Value Reference Range Comments CULTURE (BEAKER) (test code = 1095) No growth in 5 days BLOOD [id number] 18:01:00 Test Item Value Reference Range Comments CULTURE (BEAKER) (test code = 1095) No growth in 5 days URINALYSIS W/ REFLEX URINE [id number] 13:09:00 Test Item Value Reference Range Comments COLOR (BEAKER) (test code = 470) Yellow CLARITY (BEAKER) (test code = 469) Hazy SPECIFIC GRAVITY UA (BEAKER) (test code = 468) 1.015 1 .001-1.035 PH UA (BEAKER) (test code = 467) 6.5 5.0-8.0 PROTEIN UA (BEAKER) (test code = 464) 100 mg/dL Negative GLUCOSE UA (BEAKER) (test code = 365) 200 mg/dL Negative KETONES UA (BEAKER) (test code = 371) Negative Negative BILIRUBIN UA (BEAKER) (test code = 462) Negative Negative BLOOD UA (BEAKER) (test code = 461) Moderate Negative NITRITE UA (BEAKER) (test code = 465) Negative Negative LEUKOCYTE ESTERASE UA (BEAKER) (test code = 466) Negative Negative UROBILINOGEN UA (BEAKER) (test code = 463) 0.2 mg/dL 0.2-1 .0 RBC UA (BEAKER) (test code = 519) 3 /HPF WBC UA (BEAKER) (test code = 520) 3 /HPF SQUAMOUS EPITHELIAL (BEAKER) (test code = 516) 1 /HPF HYALINE CASTS (BEAKER) (test code = 514) 1 /LPF SOURCE(BEAKER) (test code = 2795) Ammunition Officer ID - [auto]Ammunition Officer ID - hankPOCT-GLUCOSE [id number] 12:43:00 Test Item Value Reference Range Comments POC-GLUCOSE METER (BEAKER) 229 mg/dL 70-110 : ADELITA RENEE AT [facility] [address] (test code = 1538) [place], [address]: Ammunition Officer/Technic shanthi ID = [id number] for KATIE HUSTON CBC W/PLT COUNT & AUTO [id number] 06:12:00 Test Item Value Reference Range Comments WHITE BLOOD CELL COUNT (BEAKER) (test code = 20.8 K/ L 3.5 -10.5 775) RED BLOOD CELL COUNT (BEAKER) (test code = 761) 2.50 M/ L 3.93-5.22 HEMOGLOBIN (BEAKER) (test code = 410) 7.6 GM/DL 11.2-15.7 HEMATOCRIT (BEAKER) (test code = 411) 25.5 % 34.1-44.9 MEAN CORPUSCULAR VOLUME (BEAKER) (test code = 102.0 fL 79 .4-94.8 753) MEAN CORPUSCULAR HEMOGLOBIN (BEAKER) (test code 30.4 pg 25.6-32.2 = 751) MEAN CORPUSCULAR HEMOGLOBIN CONC (BEAKER) (test 29.8 GM/DL 32.2-35.5 code = 752) RED CELL DISTRIBUTION WIDTH (BEAKER) (test code 13.6 % 11.7-14.4 = 412) PLATELET COUNT (BEAKER) (test code = 756) 235 K/CU MM 150-45 0 MEAN PLATELET VOLUME (BEAKER) (test code = 754) 12.6 fL 9.4-12.3 NUCLEATED RED BLOOD CELLS (BEAKER) (test code = 0 /100 WBC 0-0 413) NEUTROPHILS RELATIVE PERCENT (BEAKER) (test code 85 % = 429) LYMPHOCYTES RELATIVE PERCENT (BEAKER) (test code 6 % = 430) MONOCYTES RELATIVE PERCENT (BEAKER) (test code = 6 % 431) EOSINOPHILS RELATIVE PERCENT (BEAKER) (test code 1 % = 432) BASOPHILS RELATIVE PERCENT (BEAKER) (test code = 0 % 437) NEUTROPHILS ABSOLUTE COUNT (BEAKER) (test code = 17.69 K/ L 1.56-6.13 670) LYMPHOCYTES ABSOLUTE COUNT (BEAKER) (test code = 1.14 K/ L 1.18-3.74 414) MONOCYTES ABSOLUTE COUNT (BEAKER) (test code = 1.18 K/ L 0 .24-0.36 415) EOSINOPHILS ABSOLUTE COUNT (BEAKER) (test code = 0.15 K/ L 0.04-0.36 416) BASOPHILS ABSOLUTE COUNT (BEAKER) (test code = 0.03 K/ L 0 .01-0.08 417) IMMATURE GRANULOCYTES-RELATIVE PERCENT (BEAKER) 3 % 0-1 (test code = 2801) RAD, CHEST, 1 VIEW, NON [id number] 05:47:00Reason for exam:->evaluate for pulmonary edemaShould this be performed at the bedside?->YesFINAL REPORT RAD, CHEST, 1 VIEW, NON DEPT INDICATION: evaluate for pulmonary edema COMPARISON: June 02, 2019 FINDINGS: Portable frontal view of the chest. IMPRESSION: Support Lines: Removal of enteric tube. Stable right PICC. Lungs and pleura: Airspace and pleural opacities are unchanged. No pneumothorax.Heart and mediastinum: Stable contours. Additional findings: None. Signed: Chas Hampton MDReport Verified Date/Time: 06/03/2019 05:47:02 PT/APTT 2019-06-03 05:41:00 Test Item Value Reference Range Comments PROTIME (BEAKER) (test code = 759) 14.1 seconds 11.9-14.2 INR (BEAKER) (test code = 370) 1.1 <=5.9 PARTIAL THROMBOPLASTIN TIME (BEAKER) (test code 27.3 seconds 22.5-36.0 = 760) Effective 08/27/2018: PT Reference Range ChangeNew: 11.9-14.2 Previous: 11.7- 14.7RECOMMENDED COUMADIN/WARFARIN INR THERAPY RANGESSTANDARD DOSE: 2.0-3.0 Includes: PROPHYLAXIS for venous thrombosis, systemic embolization; TREATMENT for venous thrombosis and/or pulmonary embolus.HIGH RISK: Target INR is2.5-3.5 for patients wiht mechanical heart valves.BASIC METABOLIC [id number] 05:40:00 Test Item Value Reference Range Comments SODIUM (BEAKER) (test 154 meq/L 136-145 code = 381) POTASSIUM (BEAKER) (test 3.7 meq/L 3.5-5.1 Specime n slightly code = 379) hemolyzed CHLORIDE (BEAKER) (test 103 meq/L 98-107 code = 382) CO2 (BEAKER) (test code = 46 meq/L 22-29 355) BLOOD UREA NITROGEN 29 mg/dL 7-21 (BEAKER) (test code = 354) CREATININE (BEAKER) (test 1.01 mg/dL 0.57-1.25 Specim en slightly code = 358) hemolyzed GLUCOSE RANDOM (BEAKER) 226 mg/dL 70-105 (test code = 652) CALCIUM (BEAKER) (test 8.1 mg/dL 8.4-10.2 code = 697) EGFR (BEAKER) (test code 52 mL/min/1.73 sq m EST IMATED GFR IS NOT = 1092) ACCURATE CREA TININE CLEARANCE IN PRE DICTING GLOMERULAR FILTR ATION RATE. ESTIMATED GFR IS NOT APPLICABLE F OR DIALYSIS PATIENT S. Ammunition Officer ID - AVERY [id number] 05:25:00 Test Item Value Reference Range Comments MAGNESIUM (BEAKER) (test code = 2.0 mg/dL 1.6-2.6 Specimen slightly hemolyzed 627) Ammunition Officer ID - AVERY [id number] 05:25:00 Test Item Value Reference Range Comments PHOSPHORUS (BEAKER) (test code 3.4 mg/dL 2.3-4.7 S pecimen slightly hemolyzed = 604) Ammunition Officer ID - AVERY WBASIC METABOLIC [id number] 22:12:00 Test Item Value Reference Range Comments SODIUM (BEAKER) (test 156 meq/L 136-145 code = 381) POTASSIUM (BEAKER) (test 3.9 meq/L 3.5-5.1 code = 379) CHLORIDE (BEAKER) (test 104 meq/L 98-107 code = 382) CO2 (BEAKER) (test code = 46 meq/L 22-29 355) BLOOD UREA NITROGEN 29 mg/dL 7-21 (BEAKER) (test code = 354) CREATININE (BEAKER) (test 1.01 mg/dL 0.57-1.25 code = 358) GLUCOSE RANDOM (BEAKER) 179 mg/dL 70-105 (test code = 652) CALCIUM (BEAKER) (test 8.1 mg/dL 8.4-10.2 code = 697) EGFR (BEAKER) (test code 52 mL/min/1.73 sq m EST IMATED GFR IS NOT = 1092) ACCURATE CREA TININE CLEARANCE IN PRE DICTING GLOMERULAR FILTR ATION RATE. ESTIMATED GFR IS NOT APPLICABLE F OR DIALYSIS PATIENT S. Ammunition Officer ID - [id number] 21:51:00 Test Item Value Reference Range Comments MAGNESIUM (BEAKER) (test code = 627) 2.2 mg/dL 1.6-2.6 Ammunition Officer ID - [id number] 21:51:00 Test Item Value Reference Range Comments PHOSPHORUS (BEAKER) (test code = 604) 3.2 mg/dL 2.3-4.7 Ammunition Officer ID - BSCALCIUM, [id number] 21:38:00 Test Item Value Reference Range Comments CALCIUM IONIZED (BEAKER) (test code = 698) 0.94 mmol/L 1.12- 1.27 PH, BLOOD (BEAKER) (test code = 1810) 7.54 POCT-GLUCOSE [id number] 18:01:00 Test Item Value Reference Range Comments POC-GLUCOSE METER (BEAKER) 165 mg/dL 70-110 : ADELITA RENEE AT [facility] [address] [facility] (test code = 1538) [facility], [address]: Ammunition Officer/Technic shanthi ID = [id number] for JACK ZHANG [id number] 17:56:00 Test Item Value Reference Range Comments MAGNESIUM (BEAKER) (test code = 2.1 mg/dL 1.6-2.6 Specimen slightly hemolyzed 627) Ammunition Officer ID - [id number] 17:56:00 Test Item Value Reference Range Comments PHOSPHORUS (BEAKER) (test code 3.7 mg/dL 2.3-4.7 S pecimen slightly hemolyzed = 604) Ammunition Officer ID - BSBASIC METABOLIC [id number] 16:52:00 Test Item Value Reference Range Comments SODIUM (BEAKER) (test 159 meq/L 136-145 code = 381) POTASSIUM (BEAKER) (test 4.4 meq/L 3.5-5.1 Specime n slightly code = 379) hemolyzed CHLORIDE (BEAKER) (test 105 meq/L 98-107 code = 382) CO2 (BEAKER) (test code = 48 meq/L 22-29 355) BLOOD UREA NITROGEN 31 mg/dL 7-21 (BEAKER) (test code = 354) CREATININE (BEAKER) (test 0.99 mg/dL 0.57-1.25 Specim en slightly code = 358) hemolyzed GLUCOSE RANDOM (BEAKER) 223 mg/dL 70-105 (test code = 652) CALCIUM (BEAKER) (test 8.2 mg/dL 8.4-10.2 code = 697) EGFR (BEAKER) (test code 53 mL/min/1.73 sq m EST IMATED GFR IS NOT = 1092) ACCURATE CREA TININE CLEARANCE IN PRE DICTING GLOMERULAR FILTR ATION RATE. ESTIMATED GFR IS NOT APPLICABLE F OR DIALYSIS PATIENT S. Ammunition Officer ID - BSFL, UGI, AIR CONTRAST, WITH SMALL [id number] 12:53:00 Reason for exam:->obstructionFINAL REPORT Small bowel follow through: Comparison: CT dated May 29, 2019Clinical History: Obstruction After Gastrografin was given orally, multiple images were obtained over the abdomen. FINDINGS: There is a large hiatal hernia. Stomach is distended. An NG tube has been placed. A catheter projects over the pelvis. Multiple images were obtained with contrast in the small bowel. The colon was visualized in 60 minutes. There is mild dilation of proximal small bowel. The small bowel is decompressed. Findings may reflect low-grade obstruction. There is nonspecific distention of the colon. Fluoro time: Zero minutes Number of images obtained: Nine Impression: Mild dilation of proximal small bowel may reflect low-grade small bowel obstruction. Large hiatal hernia. Stomach is distended. Signed: Bertram Umanzor MDReport Verified Date/Time: 06/02/2019 12:53:53 Reading Location: [facility] [id number] Ortho Consult Reading Room BASIC METABOLIC [id number] 12:35:00 Test Item Value Reference Range Comments SODIUM (BEAKER) (test 158 meq/L 136-145 code = 381) POTASSIUM (BEAKER) (test 4.5 meq/L 3.5-5.1 code = 379) CHLORIDE (BEAKER) (test 105 meq/L 98-107 code = 382) CO2 (BEAKER) (test code = 47 meq/L 22-29 355) BLOOD UREA NITROGEN 30 mg/dL 7-21 (BEAKER) (test code = 354) CREATININE (BEAKER) (test 0.96 mg/dL 0.57-1.25 code = 358) GLUCOSE RANDOM (BEAKER) 220 mg/dL 70-105 (test code = 652) CALCIUM (BEAKER) (test 8.5 mg/dL 8.4-10.2 code = 697) EGFR (BEAKER) (test code 55 mL/min/1.73 sq m EST IMATED GFR IS NOT = 1092) ACCURATE CREA TININE CLEARANCE IN PRE DICTING GLOMERULAR FILTR ATION RATE. ESTIMATED GFR IS NOT APPLICABLE F OR DIALYSIS PATIENT S. Ammunition Officer ID - NTPPOCT-GLUCOSE [id number] 12:01:00 Test Item Value Reference Range Comments POC-GLUCOSE METER (BEAKER) 197 mg/dL 70-110 : ADELITA RENEE AT [address] (test code = 1538) [facility], [address]: Ammunition Officer/Technic shanthi ID = [id number] for JACK ZHANG RAD, CHEST, 1 VIEW, NON [id number] 08:53:00Reason for exam:->evaluate for pulmonary edemaShould this be performed at the bedside?->YesFINAL REPORT RAD, CHEST, 1 VIEW, NON DEPT INDICATION: evaluate for pulmonary edema COMPARISON: Prior day's exam FINDINGS: Portable frontal view of the chest. IMPRESSION: Limited by patient rotation.Support Lines: Stable. Lungs and pleura: Unchanged airspace and pleural opacities. No pneumothorax.Heart and mediastinum: Stable contours. Stable surgical changes.Additional findings: Enteric contrast in the stomach has moved retrograde into the retrocardiac region, suggesting thepresence of sliding hiatal hernia. Signed: JR Maxim, Harsha HEBERTepjevon Verified Date/Time: 06/02/2019 08:53:36 Reading Location: [address] Neuro Reading Room POCT- GLUCOSE [id number] 06:15:00 Test Item Value Reference Range Comments POC-GLUCOSE METER (BEAKER) 216 mg/dL 70-110 : ADELITA RENEE AT [address] (test code = 1538) [facility], 7 7030: Ammunition Officer/Technic shanthi ID = [id number] for TASHA LAYTON CBC W/PLT COUNT & AUTO [id number] 05:17:00 Test Item Value Reference Range Comments WHITE BLOOD CELL COUNT 15.1 K/ L 3.5-10.5 (BEAKER) (test code = 775) RED BLOOD CELL COUNT (BEAKER) 2.47 M/ L 3.93-5.22 (test code = 761) HEMOGLOBIN (BEAKER) (test 7.8 GM/DL 11.2-15.7 code = 410) HEMATOCRIT (BEAKER) (test 25.4 % 34.1-44.9 code = 411) MEAN CORPUSCULAR VOLUME 102.8 fL 79.4-94.8 Discorda nt MCV results (BEAKER) (test code = 753) vadim red to previous results; clinica l correlation requ ired. MEAN CORPUSCULAR HEMOGLOBIN 31.6 pg 25.6-32.2 (BEAKER) (test code = 751) MEAN CORPUSCULAR HEMOGLOBIN 30.7 GM/DL 32.2-35.5 CONC (BEAKER) (test code = 752) RED CELL DISTRIBUTION WIDTH 13.1 % 11.7-14.4 (BEAKER) (test code = 412) PLATELET COUNT (BEAKER) (test 208 K/CU MM 150-450 code = 756) MEAN PLATELET VOLUME (BEAKER) 12.6 fL 9.4-12.3 (test code = 754) NUCLEATED RED BLOOD CELLS 0 /100 WBC 0-0 (BEAKER) (test code = 413) NEUTROPHILS RELATIVE PERCENT 86 % (BEAKER) (test code = 429) LYMPHOCYTES RELATIVE PERCENT 4 % (BEAKER) (test code = 430) MONOCYTES RELATIVE PERCENT 7 % (BEAKER) (test code = 431) EOSINOPHILS RELATIVE PERCENT 0 % (BEAKER) (test code = 432) BASOPHILS RELATIVE PERCENT 0 % (BEAKER) (test code = 437) NEUTROPHILS ABSOLUTE COUNT 12.96 K/ L 1.56-6.13 (BEAKER) (test code = 670) LYMPHOCYTES ABSOLUTE COUNT 0.66 K/ L 1.18-3.74 (BEAKER) (test code = 414) MONOCYTES ABSOLUTE COUNT 1.08 K/ L 0.24-0.36 (BEAKER) (test code = 415) EOSINOPHILS ABSOLUTE COUNT 0.03 K/ L 0.04-0.36 (BEAKER) (test code = 416) BASOPHILS ABSOLUTE COUNT 0.02 K/ L 0.01-0.08 (BEAKER) (test code = 417) IMMATURE 2 % 0-1 GRANULOCYTES-RELATIVE PERCENT (BEAKER) (test code = 2801) BASIC METABOLIC [id number] 05:03:00 Test Item Value Reference Range Comments SODIUM (BEAKER) (test 162 meq/L 136-145 code = 381) POTASSIUM (BEAKER) (test 3.2 meq/L 3.5-5.1 code = 379) CHLORIDE (BEAKER) (test 107 meq/L 98-107 code = 382) CO2 (BEAKER) (test code = 49 meq/L 22-29 355) BLOOD UREA NITROGEN 31 mg/dL 7-21 (BEAKER) (test code = 354) CREATININE (BEAKER) (test 0.99 mg/dL 0.57-1.25 code = 358) GLUCOSE RANDOM (BEAKER) 294 mg/dL 70-105 (test code = 652) CALCIUM (BEAKER) (test 8.5 mg/dL 8.4-10.2 code = 697) EGFR (BEAKER) (test code 53 mL/min/1.73 sq m EST IMATED GFR IS NOT = 1092) ACCURATE CREA TININE CLEARANCE IN PRE DICTING GLOMERULAR FILTR ATION RATE. ESTIMATED GFR IS NOT APPLICABLE F OR DIALYSIS PATIENT S. Ammunition Officer ID - AVERY [id number] 05:03:00 Test Item Value Reference Range Comments PHOSPHORUS (BEAKER) (test code = 604) 1.1 mg/dL 2.3-4.7 Ammunition Officer ID - AVERY [id number] 04:55:00 Test Item Value Reference Range Comments MAGNESIUM (BEAKER) (test code = 627) 2.1 mg/dL 1.6-2.6 Ammunition Officer ID - AVERY WPT/[id number] 04:49:00 Test Item Value Reference Range Comments PROTIME (BEAKER) (test code = 759) 14.3 seconds 11.9-14.2 INR (BEAKER) (test code = 370) 1.1 <=5.9 PARTIAL THROMBOPLASTIN TIME (BEAKER) (test code 28.2 seconds 22.5-36.0 = 760) Effective 08/27/2018: PT Reference Range ChangeNew: 11.9-14.2 Previous: 11.7- 14.7RECOMMENDED COUMADIN/WARFARIN INR THERAPY RANGESSTANDARD DOSE: 2.0-3.0 Includes: PROPHYLAXIS for venous thrombosis, systemic embolization; TREATMENT for venous thrombosis and/or pulmonary embolus.HIGH RISK: Target INR is2.5-3.5 for patients wiht mechanical heart valves.POCT-GLUCOSE [id number] 00:15:00 Test Item Value Reference Range Comments POC-GLUCOSE METER (BEAKER) 224 mg/dL 70-110 : ADELITA RENEE AT [facility] [address] (test code = 1538) [facility], [address]: Ammunition Officer/Technic shanthi ID = [id number] for TASHA LAYTON BASIC METABOLIC [id number] 23:24:00 Test Item Value Reference Range Comments SODIUM (BEAKER) (test 164 meq/L 136-145 code = 381) POTASSIUM (BEAKER) (test 3.0 meq/L 3.5-5.1 code = 379) CHLORIDE (BEAKER) (test 108 meq/L 98-107 code = 382) CO2 (BEAKER) (test code = 43 meq/L 22-29 355) BLOOD UREA NITROGEN 32 mg/dL 7-21 (BEAKER) (test code = 354) CREATININE (BEAKER) (test 1.00 mg/dL 0.57-1.25 code = 358) GLUCOSE RANDOM (BEAKER) 225 mg/dL 70-105 (test code = 652) CALCIUM (BEAKER) (test 9.0 mg/dL 8.4-10.2 code = 697) EGFR (BEAKER) (test code 53 mL/min/1.73 sq m EST IMATED GFR IS NOT = 1092) ACCURATE CREA TININE CLEARANCE IN PRE DICTING GLOMERULAR FILTR ATION RATE. ESTIMATED GFR IS NOT APPLICABLE F OR DIALYSIS PATIENT S. Ammunition Officer ID - DBBASI METABOLIC [id number] 16:27:00 Test Item Value Reference Range Comments SODIUM (BEAKER) (test 158 meq/L 136-145 code = 381) POTASSIUM (BEAKER) (test 3.5 meq/L 3.5-5.1 code = 379) CHLORIDE (BEAKER) (test 105 meq/L 98-107 code = 382) CO2 (BEAKER) (test code = 47 meq/L 22-29 355) BLOOD UREA NITROGEN 33 mg/dL 7-21 (BEAKER) (test code = 354) CREATININE (BEAKER) (test 1.00 mg/dL 0.57-1.25 code = 358) GLUCOSE RANDOM (BEAKER) 166 mg/dL 70-105 (test code = 652) CALCIUM (BEAKER) (test 8.8 mg/dL 8.4-10.2 code = 697) EGFR (BEAKER) (test code 53 mL/min/1.73 sq m EST IMATED GFR IS NOT = 1092) ACCURATE CREA TININE CLEARANCE IN PRE DICTING GLOMERULAR FILTR ATION RATE. ESTIMATED GFR IS NOT APPLICABLE F OR DIALYSIS PATIENT S. Ammunition Officer ID - BSLACTIC ACID, [id number] 16:11:00 Test Item Value Reference Range Comments LACTATE BLOOD VENOUS (2) (BEAKER) (test code = 0.7 mmol/L 0 .5-2.2 6412) Ammunition Officer ID - BSPOCT-GLUCOSE [id number] 14:15:00 Test Item Value Reference Range Comments POC-GLUCOSE METER (BEAKER) 114 mg/dL 70-110 : ADELITA RENEE AT [facility] [address] [facility] (test code = 1538) [place], [address]: Ammunition Officer/Technic shanthi ID = [id number] for KYAW HENRIQUEZ BASIC METABOLIC [id number] 05:50:00 Test Item Value Reference Range Comments SODIUM (BEAKER) (test 159 meq/L 136-145 code = 381) POTASSIUM (BEAKER) (test 3.5 meq/L 3.5-5.1 code = 379) CHLORIDE (BEAKER) (test 106 meq/L 98-107 code = 382) CO2 (BEAKER) (test code = 48 meq/L 22-29 355) BLOOD UREA NITROGEN 37 mg/dL 7-21 (BEAKER) (test code = 354) CREATININE (BEAKER) (test 1.04 mg/dL 0.57-1.25 code = 358) GLUCOSE RANDOM (BEAKER) 191 mg/dL 70-105 (test code = 652) CALCIUM (BEAKER) (test 9.2 mg/dL 8.4-10.2 code = 697) EGFR (BEAKER) (test code 50 mL/min/1.73 sq m EST IMATED GFR IS NOT = 1092) ACCURATE CREA TININE CLEARANCE IN PRE DICTING GLOMERULAR FILTR ATION RATE. ESTIMATED GFR IS NOT APPLICABLE F OR DIALYSIS PATIENT S. Ammunition Officer ID - YOSSI [id number] 05:43:00 Test Item Value Reference Range Comments PHOSPHORUS (BEAKER) (test code = 604) 2.2 mg/dL 2.3-4.7 Ammunition Officer ID - YOSSI [id number] 05:43:00 Test Item Value Reference Range Comments MAGNESIUM (BEAKER) (test code = 627) 2.1 mg/dL 1.6-2.6 Ammunition Officer ID - YOSSI MCBC W/PLT COUNT & AUTO [id number] 05:17:00 Test Item Value Reference Range Comments WHITE BLOOD CELL COUNT (BEAKER) (test code = 12.9 K/ L 3.5 -10.5 775) RED BLOOD CELL COUNT (BEAKER) (test code = 761) 2.60 M/ L 3.93-5.22 HEMOGLOBIN (BEAKER) (test code = 410) 8.1 GM/DL 11.2-15.7 HEMATOCRIT (BEAKER) (test code = 411) 25.6 % 34.1-44.9 MEAN CORPUSCULAR VOLUME (BEAKER) (test code = 98.5 fL 79 .4-94.8 753) MEAN CORPUSCULAR HEMOGLOBIN (BEAKER) (test code 31.2 pg 25.6-32.2 = 751) MEAN CORPUSCULAR HEMOGLOBIN CONC (BEAKER) (test 31.6 GM/DL 32.2-35.5 code = 752) RED CELL DISTRIBUTION WIDTH (BEAKER) (test code 13.1 % 11.7-14.4 = 412) PLATELET COUNT (BEAKER) (test code = 756) 207 K/CU MM 150-45 0 MEAN PLATELET VOLUME (BEAKER) (test code = 754) 12.1 fL 9.4-12.3 NUCLEATED RED BLOOD CELLS (BEAKER) (test code = 0 /100 WBC 0-0 413) NEUTROPHILS RELATIVE PERCENT (BEAKER) (test code 84 % = 429) LYMPHOCYTES RELATIVE PERCENT (BEAKER) (test code 6 % = 430) MONOCYTES RELATIVE PERCENT (BEAKER) (test code = 8 % 431) EOSINOPHILS RELATIVE PERCENT (BEAKER) (test code 0 % = 432) BASOPHILS RELATIVE PERCENT (BEAKER) (test code = 0 % 437) NEUTROPHILS ABSOLUTE COUNT (BEAKER) (test code = 10.85 K/ L 1.56-6.13 670) LYMPHOCYTES ABSOLUTE COUNT (BEAKER) (test code = 0.71 K/ L 1.18-3.74 414) MONOCYTES ABSOLUTE COUNT (BEAKER) (test code = 0.97 K/ L 0 .24-0.36 415) EOSINOPHILS ABSOLUTE COUNT (BEAKER) (test code = 0.01 K/ L 0.04-0.36 416) BASOPHILS ABSOLUTE COUNT (BEAKER) (test code = 0.02 K/ L 0 .01-0.08 417) IMMATURE GRANULOCYTES-RELATIVE PERCENT (BEAKER) 3 % 0-1 (test code = 2801) [id number] 05:15:00 Test Item Value Reference Range Comments PROTIME (BEAKER) (test code = 759) 14.3 seconds 11.9-14.2 INR (BEAKER) (test code = 370) 1.1 <=5.9 PARTIAL THROMBOPLASTIN TIME (BEAKER) (test code 26.7 seconds 22.5-36.0 = 760) Effective 08/27/2018: PT Reference Range ChangeNew: 11.9-14.2 Previous: 11.7- 14.7RECOMMENDED COUMADIN/WARFARIN INR THERAPY RANGESSTANDARD DOSE: 2.0-3.0 Includes: PROPHYLAXIS for venous thrombosis, systemic embolization; TREATMENT for venous thrombosis and/or pulmonary embolus.HIGH RISK: Target INR is2.5-3.5 for patients wiht mechanical heart valves.RAD, CHEST, 1 VIEW, NON [id number] 04:37:00Reason for exam:->evaluate for pulmonary edemaShould this be performed at the bedside?->YesFINAL REPORT RAD, CHEST, 1 VIEW, NON DEPT INDICATION: evaluate for pulmonary edema COMPARISON: Prior day's exam FINDINGS: Portable frontal view of the chest. IMPRESSION: Support Lines: Stable. Lungs and pleura: Unchanged airspace and pleural opacities. No pneumothorax.Heart and mediastinum: Stable contours. Additional findings: None. Signed: Lisa Pageort Verified Date/Time: 06/01/2019 04:37:06 -GLUCOSE [id number] 00:38:00 Test Item Value Reference Range Comments POC-GLUCOSE METER (BEAKER) 139 mg/dL 70-110 : ADELITA RENEE AT [address] (test code = 1538) [facility], [address]: Ammunition Officer/Technic shanthi ID = [id number] for CHRISTIANE JARA POCT-GLUCOSE [id number] 18:44:00 Test Item Value Reference Range Comments POC-GLUCOSE METER (BEAKER) 84 mg/dL 70-110 : ADELITA RENEE AT [address] (test code = 1538) [facility], [address]: Ammunition Officer/Technic shanthi ID = [id number] for KATIE HUSTON [id number] 14:05:00 Test Item Value Reference Range Comments PHOSPHORUS (BEAKER) (test code = 604) 2.0 mg/dL 2.3-4.7 Ammunition Officer ID - GORDO [id number] 14:05:00 Test Item Value Reference Range Comments MAGNESIUM (BEAKER) (test code = 627) 2.1 mg/dL 1.6-2.6 Ammunition Officer ID - GORDO CBASIC METABOLIC [id number] 14:05:00 Test Item Value Reference Range Comments SODIUM (BEAKER) (test 154 meq/L 136-145 code = 381) POTASSIUM (BEAKER) (test 3.8 meq/L 3.5-5.1 code = 379) CHLORIDE (BEAKER) (test 107 meq/L 98-107 code = 382) CO2 (BEAKER) (test code = 32 meq/L 22-29 355) BLOOD UREA NITROGEN 33 mg/dL 7-21 (BEAKER) (test code = 354) CREATININE (BEAKER) (test 1.00 mg/dL 0.57-1.25 code = 358) GLUCOSE RANDOM (BEAKER) 84 mg/dL 70-105 (test code = 652) CALCIUM (BEAKER) (test 9.4 mg/dL 8.4-10.2 code = 697) EGFR (AFIA) (test code 53 mL/min/1.73 sq m EST IMATED GFR IS NOT = 1092) ACCURATE CREA TININE CLEARANCE IN PRE DICTING GLOMERULAR FILTR ATION RATE. ESTIMATED GFR IS NOT APPLICABLE F OR DIALYSIS PATIENT S. Ammunition Officer ID - GORDO CPOCT-GLUCOSE [id number] 12:30:00 Test Item Value Reference Range Comments POC-GLUCOSE METER (AFIA) 89 mg/dL 70-110 : ADELITA RENEE AT [facility] [address] (test code = 1538) [place], [address]: Ammunition Officer/Technic shanthi ID = [id number] for KATIE HUSTON, CHEST, 1 VIEW, NON [id number] 10:13:00Reason for exam:->check picc placementShould this be performed at the bedside?->YesFINAL REPORT History: Pulmonary edema. FINDINGS: Compared with May 31, 2019, the heart and mediastinum are stable. As before, the heart is mildly enlarged. Sqqbc-ly-ekwrmbnx bilateral pleural effusions persists. More focal opacity seen in the lung bases, possibly atelectasis. Right upper extremity PICC line in place, its tip overlies the cavoatrial junction. Nasogastric tube is again noted, the distal tip which is not visible. Bones are unremarkable. IMPRESSION: 1. New right upper extremity PICC line appears in expected position. No pneumothorax. 2. Persistent focal lower lobe airspace opacity and probable moderate bilateral pleural effusions. Signed: Waleska Mojica MDReportVerified Date/Time: 05/31/2019 10:13:41 Reading Location: [facility] C0T Transitional Reading Room [id number] 08:56:00 Test Item Value Reference Range Comments PREALBUMIN (AFIA) (test code = 586) 11 mg/dL 14-45 Ammunition Officer ID - GORDO [id number] 07:54:00 Test Item Value Reference Range Comments TRIGLYCERIDES (AFIA) (test code = 540) 105 mg/dL TRIGLYCERIDE REFERENCE RANGELow Risk <150Borderline Risk 150-199High Risk 200-499Very High Risk>=500Operator ID - GORDO CRAD, CHEST, 1 VIEW, NON DEPT 2019-05-31 07:25:00Reason for exam:->evaluate for pulmonary edemaShould this be performed at the bedside?->YesFINAL REPORT History: Pulmonary edema. FINDINGS: Compared with 05/30/2019, theheart and mediastinum are stable. Mild lung edema persist. Small to moderate bilateral pleural effusi ons are unchanged. No pneumothorax. Nasogastric tube is again noted, its distal tip is not visible on this radiograph. Bones are diffusely osteopenic but otherwise unremarkable. IMPRESSION: 1. Stable chest. Mild lung edema persists. Signed: Waleska Mojica MDReport Verified Date/Time: 05/31/2019 07:25:27 Reading Location: [address] Transitional Reading Room BASIC METABOLIC [id number] 05:03:00 Test Item Value Reference Range Comments SODIUM (BEAKER) (test 156 meq/L 136-145 code = 381) POTASSIUM (BEAKER) (test 3.3 meq/L 3.5-5.1 code = 379) CHLORIDE (BEAKER) (test 108 meq/L 98-107 code = 382) CO2 (BEAKER) (test code = 37 meq/L 22-29 355) BLOOD UREA NITROGEN 34 mg/dL 7-21 (BEAKER) (test code = 354) CREATININE (BEAKER) (test 1.08 mg/dL 0.57-1.25 code = 358) GLUCOSE RANDOM (BEAKER) 100 mg/dL 70-105 (test code = 652) CALCIUM (BEAKER) (test 9.6 mg/dL 8.4-10.2 code = 697) EGFR (BEAKER) (test code 48 mL/min/1.73 sq m EST IMATED GFR IS NOT = 1092) ACCURATE CREA TININE CLEARANCE IN PRE DICTING GLOMERULAR FILTR ATION RATE. ESTIMATED GFR IS NOT APPLICABLE F OR DIALYSIS PATIENT S. Ammunition Officer ID - YOSSI [id number] 05:01:00 Test Item Value Reference Range Comments PHOSPHORUS (BEAKER) (test code = 604) 2.6 mg/dL 2.3-4.7 Ammunition Officer ID - YOSSI [id number] 05:01:00 Test Item Value Reference Range Comments MAGNESIUM (BEAKER) (test code = 627) 2.0 mg/dL 1.6-2.6 Ammunition Officer ID - YOSSI MCBC W/PLT COUNT & AUTO [id number] 04:54:00 Test Item Value Reference Range Comments WHITE BLOOD CELL COUNT (BEAKER) (test code = 11.4 K/ L 3.5 -10.5 775) RED BLOOD CELL COUNT (BEAKER) (test code = 761) 2.71 M/ L 3.93-5.22 HEMOGLOBIN (BEAKER) (test code = 410) 8.4 GM/DL 11.2-15.7 HEMATOCRIT (BEAKER) (test code = 411) 26.0 % 34.1-44.9 MEAN CORPUSCULAR VOLUME (BEAKER) (test code = 95.9 fL 79 .4-94.8 753) MEAN CORPUSCULAR HEMOGLOBIN (BEAKER) (test code 31.0 pg 25.6-32.2 = 751) MEAN CORPUSCULAR HEMOGLOBIN CONC (BEAKER) (test 32.3 GM/DL 32.2-35.5 code = 752) RED CELL DISTRIBUTION WIDTH (BEAKER) (test code 13.2 % 11.7-14.4 = 412) PLATELET COUNT (BEAKER) (test code = 756) 210 K/CU MM 150-45 0 MEAN PLATELET VOLUME (BEAKER) (test code = 754) 12.3 fL 9.4-12.3 NUCLEATED RED BLOOD CELLS (BEAKER) (test code = 0 /100 WBC 0-0 413) NEUTROPHILS RELATIVE PERCENT (BEAKER) (test code 84 % = 429) LYMPHOCYTES RELATIVE PERCENT (BEAKER) (test code 6 % = 430) MONOCYTES RELATIVE PERCENT (BEAKER) (test code = 8 % 431) EOSINOPHILS RELATIVE PERCENT (BEAKER) (test code 0 % = 432) BASOPHILS RELATIVE PERCENT (BEAKER) (test code = 0 % 437) NEUTROPHILS ABSOLUTE COUNT (BEAKER) (test code = 9.56 K/ L 1.56-6.13 670) LYMPHOCYTES ABSOLUTE COUNT (BEAKER) (test code = 0.70 K/ L 1.18-3.74 414) MONOCYTES ABSOLUTE COUNT (BEAKER) (test code = 0.90 K/ L 0 .24-0.36 415) EOSINOPHILS ABSOLUTE COUNT (BEAKER) (test code = 0.01 K/ L 0.04-0.36 416) BASOPHILS ABSOLUTE COUNT (BEAKER) (test code = 0.02 K/ L 0 .01-0.08 417) IMMATURE GRANULOCYTES-RELATIVE PERCENT (BEAKER) 1 % 0-1 (test code = 2801) [id number] 04:54:00 Test Item Value Reference Range Comments PROTIME (BEAKER) (test code = 759) 13.9 seconds 11.9-14.2 INR (BEAKER) (test code = 370) 1.1 <=5.9 PARTIAL THROMBOPLASTIN TIME (BEAKER) (test code 30.1 seconds 22.5-36.0 = 760) Effective 08/27/2018: PT Reference Range ChangeNew: 11.9-14.2 Previous: 11.7- 14.7RECOMMENDED COUMADIN/WARFARIN INR THERAPY RANGESSTANDARD DOSE: 2.0-3.0 Includes: PROPHYLAXIS for venous thrombosis, systemic embolization; TREATMENT for venous thrombosis and/or pulmonary embolus.HIGH RISK: Target INR is2.5-3.5 for patients wiht mechanical heart valves.POCT-GLUCOSE [id number] 22:18:00 Test Item Value Reference Range Comments POC-GLUCOSE METER (BEAKER) 91 mg/dL 70-110 : ADELITA RENEE AT [address] (test code = 1538) [facility], [address]: Ammunition Officer/Technic shanthi ID = [id number] for Ja Baltazar POCT-GLUCOSE [id number] 18:42:00 Test Item Value Reference Range Comments POC-GLUCOSE METER (BEAKER) 84 mg/dL 70-110 : ADELITA RENEE AT [address] (test code = 1538) [facility], [address]: Ammunition Officer/Technic shanthi ID = [id number] for KATIE HUSTON POCT-GLUCOSE [id number] 13:13:00 Test Item Value Reference Range Comments POC-GLUCOSE METER (BEAKER) 99 mg/dL 70-110 : ADELITA RENEE AT [address] (test code = 1538) [facility], [address]: Ammunition Officer/Technic shanthi ID = [id number] for KATIE HUSTON RAD, CHEST, 1 VIEW, NON [id number] 12:04:00Reason for exam:->evaluate for pulmonary edemaShould this be performed at the bedside?->YesFINAL REPORT Technique: Single view of the chest COMPARISON: 05/29/2019 FINDINGS: Increased interstitial markings bilateral may represent vascular congestion. Small to moderate pleural effusions, left greater than right. No pneumothorax. Interval placement of a nasogastric tube which projects below the diaphragm. Cardiac silhouette is prominent. No acute skeletal abnormality. Sig megan: Eric Snoweport Verified Date/Time: 05/30/2019 12:04:45 Reading Location: [place] [address] Transitional Reading Room RAD, ABDOMEN/KUB, 1 VIEW [id number] 09:28:00Reason for exam:->evaluate bowel distension post NGT placementShould this be performed at the bedside?->YesFINAL REPORT History: Bowel distention, nasogastric tube placement. FINDINGS:Compared with 05/29/2019, supine of view of the abdomen again demonstrates mildly dilated gas- filled loops of small bowel in the lower abdomen. Moderate colonic gas and minimal stool are present. Nasogastric tube tip overlies expected location of the gastric body. There is no visible free air. Moderatebilateral pleural effusions are suspected. Drainage catheter is seen overlying the right lower pelvis. Surgical darlene are noted in this area as well. Overall, there has been no significant change in the bowel gas pattern since the previous day's study. IMPRESSION: 1. Stable abdomen since the previous day's study. Mildly dilated gas-filled small bowel loops persist consistent with patient's known bowel obstruction is described by recent CT of the abdomen performed yesterday. Signed: Waleska Mojica Verified Date/Time: 05/30/2019 09:28:32 Reading Location: [address] Consult Reading Room [id number] 07:47:00 Test Item Value Reference Range Comments PHOSPHORUS (BEAKER) (test code = 604) 2.7 mg/dL 2.3-4.7 Ammunition Officer ID - GORDO [id number] 07:47:00 Test Item Value Reference Range Comments MAGNESIUM (BEAKER) (test code = 627) 2.2 mg/dL 1.6-2.6 Ammunition Officer ID - GORDO CBASIC METABOLIC [id number] 07:47:00 Test Item Value Reference Range Comments SODIUM (BEAKER) (test 148 meq/L 136-145 code = 381) POTASSIUM (BEAKER) (test 3.7 meq/L 3.5-5.1 code = 379) CHLORIDE (BEAKER) (test 109 meq/L 98-107 code = 382) CO2 (BEAKER) (test code = 25 meq/L 22-29 355) BLOOD UREA NITROGEN 30 mg/dL 7-21 (BEAKER) (test code = 354) CREATININE (BEAKER) (test 1.08 mg/dL 0.57-1.25 code = 358) GLUCOSE RANDOM (BEAKER) 98 mg/dL 70-105 (test code = 652) CALCIUM (BEAKER) (test 9.6 mg/dL 8.4-10.2 code = 697) EGFR (BEAKER) (test code 48 mL/min/1.73 sq m EST IMATED GFR IS NOT = 1092) ACCURATE CREA TININE CLEARANCE IN PRE DICTING GLOMERULAR FILTR ATION RATE. ESTIMATED GFR IS NOT APPLICABLE F OR DIALYSIS PATIENT S. Ammunition Officer ID - GORDO [id number] 05:32:00 Test Item Value Reference Range Comments PROTIME (BEAKER) (test code = 759) 13.9 seconds 11.9-14.2 INR (BEAKER) (test code = 370) 1.1 <=5.9 PARTIAL THROMBOPLASTIN TIME (BEAKER) (test code 30.3 seconds 22.5-36.0 = 760) Effective 08/27/2018: PT Reference Range ChangeNew: 11.9-14.2 Previous: 11.7- 14.7RECOMMENDED COUMADIN/WARFARIN INR THERAPY RANGESSTANDARD DOSE: 2.0-3.0 Includes: PROPHYLAXIS for venous thrombosis, systemic embolization; TREATMENT for venous thrombosis and/or pulmonary embolus.HIGH RISK: Target INR is2.5-3.5 for patients wiht mechanical heart valves.CBC W/PLT COUNT & AUTO [id number] 05:17:00 Test Item Value Reference Range Comments WHITE BLOOD CELL COUNT (BEAKER) (test code = 12.6 K/ L 3.5 -10.5 775) RED BLOOD CELL COUNT (BEAKER) (test code = 761) 2.80 M/ L 3.93-5.22 HEMOGLOBIN (BEAKER) (test code = 410) 8.9 GM/DL 11.2-15.7 HEMATOCRIT (BEAKER) (test code = 411) 26.8 % 34.1-44.9 MEAN CORPUSCULAR VOLUME (BEAKER) (test code = 95.7 fL 79 .4-94.8 753) MEAN CORPUSCULAR HEMOGLOBIN (BEAKER) (test code 31.8 pg 25.6-32.2 = 751) MEAN CORPUSCULAR HEMOGLOBIN CONC (BEAKER) (test 33.2 GM/DL 32.2-35.5 code = 752) RED CELL DISTRIBUTION WIDTH (BEAKER) (test code 13.2 % 11.7-14.4 = 412) PLATELET COUNT (BEAKER) (test code = 756) 250 K/CU MM 150-45 0 MEAN PLATELET VOLUME (BEAKER) (test code = 754) 11.7 fL 9.4-12.3 NUCLEATED RED BLOOD CELLS (BEAKER) (test code = 0 /100 WBC 0-0 413) NEUTROPHILS RELATIVE PERCENT (BEAKER) (test code 86 % = 429) LYMPHOCYTES RELATIVE PERCENT (BEAKER) (test code 5 % = 430) MONOCYTES RELATIVE PERCENT (BEAKER) (test code = 8 % 431) EOSINOPHILS RELATIVE PERCENT (BEAKER) (test code 0 % = 432) BASOPHILS RELATIVE PERCENT (BEAKER) (test code = 0 % 437) NEUTROPHILS ABSOLUTE COUNT (BEAKER) (test code = 10.85 K/ L 1.56-6.13 670) LYMPHOCYTES ABSOLUTE COUNT (BEAKER) (test code = 0.60 K/ L 1.18-3.74 414) MONOCYTES ABSOLUTE COUNT (BEAKER) (test code = 1.02 K/ L 0 .24-0.36 415) EOSINOPHILS ABSOLUTE COUNT (BEAKER) (test code = 0.01 K/ L 0.04-0.36 416) BASOPHILS ABSOLUTE COUNT (BEAKER) (test code = 0.03 K/ L 0 .01-0.08 417) IMMATURE GRANULOCYTES-RELATIVE PERCENT (BEAKER) 1 % 0-1 (test code = 2801) POCT-GLUCOSE [id number] 22:03:00 Test Item Value Reference Range Comments POC-GLUCOSE METER (BEAKER) 102 mg/dL 70-110 : ADELITA RENEE AT [facility] [address] [facility] (test code = 1538) [facility], [address]: Ammunition Officer/Technic shanthi ID = [id number] for Ja Baltazar POCT-GLUCOSE [id number] 18:20:00 Test Item Value Reference Range Comments POC-GLUCOSE METER (BEAKER) 122 mg/dL 70-110 : ADELITA RENEE AT [facility] [address] [place] [address] (test code = 1538) [facility], [address]: Ammunition Officer/Technic shanthi ID = [id number] for KATIE HUSTON RAD, ABDOMEN/KUB, 1 VIEW [id number] 16:49:00Please note: per CT scan, partial stomach has herniated into chestReason for exam:->evaluate for NGT placement FINAL REPORT TECHNIQUE: Supine radiographs of the abdomen dated 05/29/2019 HISTORY: Evaluate for NG tube placement Comparison: Abdominal radiograph performed earlier the same day IMPRESSION:Enteric tube is seen with the tip in the region of the stomach. There is stable distentionof the stomach. No change in dilated loops of small bowel concerning for obstruction. No free intraperitoneal air. Subcutaneous emphysema is again visualized. Signed: Bharti Neireport Verified Date/Time: 05/29/2019 16:49:27 Reading Location: [address] Transitional Reading Room URINALYSIS W/ REFLEX URINE [id number] 15:22:00 Test Item Value Reference Range Comments COLOR (BEAKER) (test code = 470) Yellow CLARITY (BEAKER) (test code = 469) Clear SPECIFIC GRAVITY UA (BEAKER) (test code = 468) 1.041 1 .001-1.035 PH UA (BEAKER) (test code = 467) 5.5 5.0-8.0 PROTEIN UA (BEAKER) (test code = 464) 100 mg/dL Negative GLUCOSE UA (BEAKER) (test code = 365) Negative Negative KETONES UA (BEAKER) (test code = 371) 80 mg/dL Negative BILIRUBIN UA (BEAKER) (test code = 462) Negative Negative BLOOD UA (BEAKER) (test code = 461) Moderate Negative NITRITE UA (BEAKER) (test code = 465) Negative Negative LEUKOCYTE ESTERASE UA (BEAKER) (test code = 466) Negative Negative UROBILINOGEN UA (BEAKER) (test code = 463) 0.2 mg/dL 0.2-1 .0 RBC UA (BEAKER) (test code = 519) 12 /HPF WBC UA (BEAKER) (test code = 520) 3 /HPF MUCUS (BEAKER) (test code = 1574) Occasional SQUAMOUS EPITHELIAL (BEAKER) (test code = 516) 1 /HPF SOURCE(BEAKER) (test code = 2795) Ammunition Officer ID - [auto]Ammunition Officer ID - techRAD, ABDOMEN/KUB, 1 VIEW [id number] 15:21:00Reason for exam:->NGT placementFINAL REPORT RAD, ABDOMEN/KUB, 1 VIEW AP CLINICAL INDICATION: NGT placement COMPARISON: None TECHNIQUE: Single, frontal radiograph of the abdomen. IMPRESSION: The examinationis limited by patient positioning and linear artifact. A nasogastric tube projects down the right mainstem bronchus near the right base. Careful removal is advised. These findings were communicated to the nurse caring for the patient at the time of dictation. Signed: JR Maxim, Harsha Vincent V erified Date/Time: 05/29/2019 15:21:28 Reading Location: [facility] Radiology Reading Room VANCOMYCIN LEVEL, [id number] 13:13:00 Test Item Value Reference Range Comments VANCOMYCIN TROUGH (BEAKER) (test code = 522) 11.1 ug/mL 10. 0-20.0 Ammunition Officer ID - SHANON LCT, CHEST WITH IV CONTRAST- PE TEST [id number] 12:56:00FINAL REPORT CT of the chest, pulmonary embolism protocol, and CT of the abdomen and pelvis, with contrast Clinical History: Tachycardia, hypoxia, shortness of breath Technique: Precontrast axial images at the level of the pulmonary outflow tract are obtained for the purpose of contrast bolus tracking. Postcontrast axial images of the chest are subsequently obtained with optimal pulmonary arterial enhancement followed by delayed postcontrast images. Coronal reformatted images are obtained. CT of the abdomen and pelvis is also obtained after intravenous contrast administration. This exam was performed according to our departmental dose optimization program which includes automated exposure control, adjustment of the mA and/or kV according to patient's size and/or use of iterative reconstructive technique. Comparison Film: Radiograph dated May 29, 2019 Discussion: No filling defects are identified within the pulmonary arteries to suggest acute pulmonary embolism. There is no supraclavicular, axillary, mediastinal or hilar lymphadenopathy. Heart is mildly enlarged. No pericardial effusion. Esophagus is distended. There is a large hiatal hernia, which is massively distended, anteriorly displacing the heart. There are small to moderate bilateral pleural effusions, with bilateral lower lobe atelectasis. There are several small foci of groundglass opacities in the right lung, which may be infectious or inflammatory etiology. A bleb is seen in the medial left upper lobe. Central airways appear patent. No liver lesion is identified. No biliary ductal dilatation,gallbladder appears normal. Spleen contains a few calcified granulomas. The pancreas, and adrenal glands are also unremarkable. Kidneys are atrophic. At the right upper pole, there is a 1.5 cm lesion, unclear whether it represents a enhancing mass versus hyperdense cyst. A similarly indeterminate lesion is seen in the interpolar left kidney, measuring 1.1 cm. There is no hydronephrosis or radiopaque stone. Multiple loops of small bowel are distended, and distal small bowel is decompressed. Findings are compatible with high-grade small bowel obstruction. A transition point is identified in mid to lower central abdomen (axial image 53, coronal image 37). Patient is also status post recent low anterior resection. Rectal contrast has been administered. There is no evidence of stricture at the anastomosis, no contrast extravasation. Note is made of mild colonic diverticulosis. Colon is essentially decompressed. In the pelvis, bladder is decompressed. Uterus is absent. No adnexal mass. There is a right lower quadrant catheter, no associated fluid collection. There is no free intraperitoneal air. No ascites or lymphadenopathy. There is subcutaneous emphysema in the anterior chest, and abdominal pelvic wall, extending to the inguinal region bilaterally. There is anasarca. Osseous structures demonstrate degenerative changes. Bony mineralization is decreased. There is a chronic fracture deformity of the right superior pubic ramus. Impression: Findings compatible with high-grade small bowel obstruction. A transition point is noted in the mid small bowel in central abdomen. Markedly distended stomach, including the herniated portion in lower chest, causing anterior displacement of the heart. No PE is identified. Small to moderate bilateral pleural effusions. There is bilateral lower lobe atelectasis/consolidation. Small foci of groundglass opacities in the right lung are likely infectious or inflammatory in etiology. Status post low anterior resection. No contrast extravasation. No anastomotic stricture. There is mild colonic diverticulosis. Anasarca. Subcutaneous emphysema in anterior chest, abdomen and pelvic wall. Kidneys appear atrophic. There is a indeterminate lesion in each kidney that may represent hyperdense cyst versus enhancing mass. Suggest correlation with dedicated renal mass prot ocol CT or MRI when clinically appropriate. Signed: Bertram Umanzor MDReport Verified Date/Time: 05/29/2019 12:56:19 Reading Location: [address] Ortho Consult Reading Room CT, [id number] 12:56:00Rectal contrastFINAL REPORT CT of the chest, pulmonary embolism protocol, and CT of the abdomen and pelvis, with contrast Clinical History: Tachycardia, hypoxia, shortness of breath Technique: Precontrast axial images at the level of the pulmonary outflow tract are obtained for the purpose of contrast bolus tracking. Postcontrast axial images of the chest are subsequently obtained with optimal pulmonary arterial enhancement followed by delayed postcontrast images. Coronal reformatted images are obtained. CT of the abdomen and pelvis is also obtained after intravenous contrast administration. This exam was performed according to our departmental dose optimization program which includes automated exposure control, adjustment of the mA and/or kV according to patient's size and/or use of iterative reconstructive technique. Comparison Film: Radiograph dated May 29, 2019 Discussion: No filling defects are identified within the pulmonary arteries to suggest acute pulmonary embolism. There is no supraclavicular, axillary, mediastinal or hilar lymphadenopathy. Heart is mildly enlarged. No pericardial effusion. Esophagus is distended. There is a large hiatal hernia, which is massively distended, anteriorly displacing the heart. There are small to moderate bilateral pleural effusions, with bilateral lower lobe atelectasis. There are several small foci of groundglass opacities in the right lung, which may be infectious or inflammatory etiology. A bleb is seen in the medial left upper lobe. Central airways appear patent. No liver lesion is identified. No biliary ductal dilatation,gallbladder appears normal. Spleen contains a few calcified granulomas. The pancreas, and adrenal glands are also unremarkable. Kidneys are atrophic. At the right upper pole, there is a 1.5 cm lesion, unclear whether it represents a enhancing mass versus hyperdense cyst. A similarly indeterminate lesion is seen in the interpolar left kidney, measuring 1.1 cm. There is no hydronephrosis or radiopaque stone. Multiple loops of small bowel are distended, and distal small bowel is decompressed. Findings are compatible with high-grade small bowel obstruction. A transition point is identified in mid to lower central abdomen (axial image 53, coronal image 37). Patient is also status post recent low anterior resection. Rectal contrast has been administered. There is no evidence of stricture at the anastomosis, no contrast extravasation. Note is made of mild colonic diverticulosis. Colon is essentially decompressed. In the pelvis, bladder is decompressed. Uterus is absent. No adnexal mass. There is a right lower quadrant catheter, no associated fluid collection. There is no free intraperitoneal air. No ascites or lymphadenopathy. There is subcutaneous emphysema in the anterior chest, and abdominal pelvic wall, extending to the inguinal region bilaterally. There is anasarca. Osseous structures demonstrate degenerative changes. Bony mineralization is decreased. There is a chronic fracture deformity of the right superior pubic ramus. Impression: Findings compatible with high-grade small bowel obstruction. A transition point is noted in the mid small bowel in central abdomen. Markedly distended stomach, including the herniated portion in lower chest, causing anterior displacement of the heart. No PE is identified. Small to moderate bilateral pleural effusions. There is bilateral lower lobe atelectasis /consolidation. Small foci of groundglass opacities in the right lung are likely infectious or inflammatory in etiology. Status post low anterior resection. No contrast extravasation. No anastomotic stricture. There is mild colonic diverticulosis. Anasarca. Subcutaneous emphysema in anterior chest, abdomen and pelvic wall. Kidneys appear atrophic. There is a indeterminate lesion in each kidney that may represent hyperdense cyst versus enhancing mass. Suggest correlation with dedicated renal mass protocol CT or MRI when clinically appropriate. Signed: Bertram Umanzor MDReport Verified Date/Time: 05/29/2019 12:56:19 Reading Location: [place] [id number] Ortho Consult Reading Room POCT-GLUCOSE [id number] 12:43:00 Test Item Value Reference Range Comments POC-GLUCOSE METER (BEAKER) 104 mg/dL 70-110 : ADELITA RENEE AT [facility] [address] [facility] (test code = 1538) [facility], [address]: Ammunition Officer/Technic shanthi ID = [id number] for KATIE HUSTON BRONCHIAL CULTURE + GRAM [id number] 11:23:00 Test Item Value Reference Range Comments CULTURE (BEAKER) (test code = 1095) See comment GRAM STAIN RESULT (BEAKER) (test code = 1+ WBCs 1123) GRAM STAIN RESULT (BEAKER) (test code = No organisms seen 72920) RAD, ABDOMEN/KUB, 1 VIEW [id number] 10:14:00Reason for exam:->evaluate for ileusFINAL REPORT Technique: Supine radiographs of the abdomen dated 05/29/2019 HISTORY: Evaluate for ileus. COMPARISON: Abdominal radiographs dated 03/30/2019 IMPRESSION:Surgical drain is seen in the right lower quadrant. Subcutaneous emphysema is seen along the lateral abdominal abraham and both proximal thighs. Mildly dilated loops of small bowel are seen in the lower abdomen measuring up to 4.2 cm. No free intraperitoneal air. Scoliosis of the lumbar spine is visualized. Signed: Bharti Neri MDReport Verified Date/Time: 05/29/2019 10:14:44 Reading Location: [place] [id number] Transitional Reading Room POCT-GLUCOSE [id number] 10:05:00 Test Item Value Reference Range Comments POC-GLUCOSE METER (BEAKER) 108 mg/dL 70-110 : ADELITA RENEE AT [facility] [address] (test code = 1538) [place], [address]: Ammunition Officer/Technic shanthi ID = [id number] for KATIE HUSTON TROPONIN [id number] 09:47:00 Test Item Value Reference Range Comments TROPONIN I (BEAKER) (test code = 397) 0.04 ng/mL 0.00-0.03 Troponin I (TnI) levels must be interpreted in the context of the presenting symptoms and the clinical findings. Elevated TnI levels indicate myocardial damage, but are not specific for ischemic heart disease. Elevated TnI levels are seen in patients with other cardiac conditions (including myocarditis and congestive heart failure), and slight TnI elevations occur in patients with other conditions, including sepsis, renal failure, acidosis, acute neurological disease, and persistent tachyarrhythmia.Ammunition Officer ID - PIAYA LRAD, CHEST, 1 VIEW, NON [id number] 07:41:00Reason for exam:->intubatedShould this be performed at the bedside?->YesFINAL REPORT RAD, CHEST, 1 VIEW, NON DEPT INDICATION: intubated COMPARISON: Prior day's exam FINDINGS: Portable frontal view of the chest. IMPRESSION: Support Lines: Left IJ ce ntral venous catheter has been removed. Lungs and pleura: Unchanged airspace and pleural opacities. No pneumothorax.Heart and mediastinum: Stable contours. Additional findings: Evolving subcutaneous emphysema bilaterally over the hemithoraces. Signed: JR Pan Robert MDReport Verified Date/Time: 05/29/2019 07:41:28 Reading Location: [facility] Radiology Reading Room BLOOD GAS, [id number] 05:24:00 Test Item Value Reference Range Comments PH VENOUS (BEAKER) (test code = 701) 7.40 7.32-7.42 PCO2 VENOUS (BEAKER) (test code = 755) 37 mmHg 41-51 PO2 VENOUS (BEAKER) (test code = 702) 74 mmHg 25-40 O2 SATURATION VENOUS (BEAKER) (test code = 703) 95.0 % 40.0-70.0 HCO3 VENOUS (BEAKER) (test code = 705) 22 mmol/L 21-29 BASE EXCESS VENOUS (BEAKER) (test code = 704) -2.0 mmol/L -2 .0-3.0 PATIENT TEMPERATURE (BEAKER) (test code = 1818) 37.0 C FIO2 (BEAKER) (test code = 1819) 100.0 % [id number] 04:54:00 Test Item Value Reference Range Comments MAGNESIUM (BEAKER) (test code = 2.1 mg/dL 1.6-2.6 Specimen slightly hemolyzed 627) Ammunition Officer ID Roderick CLAUDIO [id number] 04:54:00 Test Item Value Reference Range Comments PHOSPHORUS (BEAKER) (test code 2.7 mg/dL 2.3-4.7 S pecimen slightly hemolyzed = 604) Ammunition Officer JUAN CLAUDIO LBASIC METABOLIC [id number] 04:54:00 Test Item Value Reference Range Comments SODIUM (BEAKER) (test 143 meq/L 136-145 code = 381) POTASSIUM (BEAKER) (test 4.1 meq/L 3.5-5.1 Specime n slightly code = 379) hemolyzed CHLORIDE (BEAKER) (test 109 meq/L 98-107 code = 382) CO2 (BEAKER) (test code = 21 meq/L 22-29 355) BLOOD UREA NITROGEN 21 mg/dL 7-21 (BEAKER) (test code = 354) CREATININE (BEAKER) (test 0.89 mg/dL 0.57-1.25 Specim en slightly code = 358) hemolyzed GLUCOSE RANDOM (BEAKER) 105 mg/dL 70-105 (test code = 652) CALCIUM (BEAKER) (test 9.5 mg/dL 8.4-10.2 code = 697) EGFR (BEAKER) (test code 60 mL/min/1.73 sq m EST IMATED GFR IS NOT = 1092) ACCURATE CREA TININE CLEARANCE IN PRE DICTING GLOMERULAR FILTR ATION RATE. ESTIMATED GFR IS NOT APPLICABLE F OR DIALYSIS PATIENT S. Ammunition Officer JUAN CLAUDIO LCBC W/PLT COUNT & AUTO [id number] 04:39:00 Test Item Value Reference Range Comments WHITE BLOOD CELL COUNT (BEAKER) (test code = 15.7 K/ L 3.5 -10.5 775) RED BLOOD CELL COUNT (BEAKER) (test code = 761) 2.96 M/ L 3.93-5.22 HEMOGLOBIN (BEAKER) (test code = 410) 9.3 GM/DL 11.2-15.7 HEMATOCRIT (BEAKER) (test code = 411) 28.8 % 34.1-44.9 MEAN CORPUSCULAR VOLUME (BEAKER) (test code = 97.3 fL 79 .4-94.8 753) MEAN CORPUSCULAR HEMOGLOBIN (BEAKER) (test code 31.4 pg 25.6-32.2 = 751) MEAN CORPUSCULAR HEMOGLOBIN CONC (BEAKER) (test 32.3 GM/DL 32.2-35.5 code = 752) RED CELL DISTRIBUTION WIDTH (BEAKER) (test code 13.2 % 11.7-14.4 = 412) PLATELET COUNT (BEAKER) (test code = 756) 159 K/CU MM 150-45 0 MEAN PLATELET VOLUME (BEAKER) (test code = 754) 12.5 fL 9.4-12.3 NUCLEATED RED BLOOD CELLS (BEAKER) (test code = 0 /100 WBC 0-0 413) NEUTROPHILS RELATIVE PERCENT (BEAKER) (test code 93 % = 429) LYMPHOCYTES RELATIVE PERCENT (BEAKER) (test code 2 % = 430) MONOCYTES RELATIVE PERCENT (BEAKER) (test code = 4 % 431) EOSINOPHILS RELATIVE PERCENT (BEAKER) (test code 0 % = 432) BASOPHILS RELATIVE PERCENT (BEAKER) (test code = 0 % 437) NEUTROPHILS ABSOLUTE COUNT (BEAKER) (test code = 14.50 K/ L 1.56-6.13 670) LYMPHOCYTES ABSOLUTE COUNT (BEAKER) (test code = 0.37 K/ L 1.18-3.74 414) MONOCYTES ABSOLUTE COUNT (BEAKER) (test code = 0.64 K/ L 0 .24-0.36 415) EOSINOPHILS ABSOLUTE COUNT (BEAKER) (test code = 0.00 K/ L 0.04-0.36 416) BASOPHILS ABSOLUTE COUNT (BEAKER) (test code = 0.03 K/ L 0 .01-0.08 417) IMMATURE GRANULOCYTES-RELATIVE PERCENT (BEAKER) 1 % 0-1 (test code = 2801) [id number] 04:37:00 Test Item Value Reference Range Comments PROTIME (BEAKER) (test code = 759) 14.0 seconds 11.9-14.2 INR (BEAKER) (test code = 370) 1.1 <=5.9 PARTIAL THROMBOPLASTIN TIME (BEAKER) (test code 33.1 seconds 22.5-36.0 = 760) Effective 08/27/2018: PT Reference Range ChangeNew: 11.9-14.2 Previous: 11.7- 14.7RECOMMENDED COUMADIN/WARFARIN INR THERAPY RANGESSTANDARD DOSE: 2.0-3.0 Includes: PROPHYLAXIS for venous thrombosis, systemic embolization; TREATMENT for venous thrombosis and/or pulmonary embolus.HIGH RISK: Target INR is2.5-3.5 for patients wiht mechanical heart valves.POCT-GLUCOSE [id number] 01:37:00 Test Item Value Reference Range Comments POC-GLUCOSE METER (BEAKER) 95 mg/dL 70-110 : ADELITA RENEE AT [address] (test code = 1538) [facility], [address]: Ammunition Officer/Technic shanthi ID = [id number] for Giuseppe Dunlap haashley POCT-GLUCOSE [id number] 17:55:00 Test Item Value Reference Range Comments POC-GLUCOSE METER (BEAKER) 100 mg/dL 70-110 : ADELITA RENEE AT [address] (test code = 1538) [facility], [address]: Ammunition Officer/Technic shanthi ID = [id number] for HENRIQUEZ, OL IVIA POCT-GLUCOSE [id number] 15:11:00 Test Item Value Reference Range Comments POC-GLUCOSE METER (BEAKER) 117 mg/dL 70-110 : ADELITA RENEE AT [address] (test code = 1538) [facility], [address]: Ammunition Officer/Technic shanthi ID = [id number] for HENRIQUEZ, OL IVIA POCT-GLUCOSE [id number] 11:56:00 Test Item Value Reference Range Comments POC-GLUCOSE METER (BEAKER) 63 mg/dL 70-110 : ADELITA RENEE AT [address] (test code = 1538) [facility], [address]: Ammunition Officer/Technic shanthi ID = [id number] for KYAW HENRIQUEZ POCT-GLUCOSE [id number] 09:28:00 Test Item Value Reference Range Comments POC-GLUCOSE METER (BEAKER) 66 mg/dL 70-110 : ADELITA RENEE AT [facility] [address] (test code = 1538) [facility], [address]: Ammunition Officer/Technic shanthi ID = [id number] for Giuseppe Dunlap RAD, CHEST, 1 VIEW, NON [id number] 08:47:00Reason for exam:- >intubatedShould this be performed at the bedside?->YesFINAL REPORT Comparison: 05/27/2019 TECHNIQUE: Single view of the chest FINDINGS: Interval removal of endotracheal tube and nasogastric tube. Left internal jugular central line isstable. Bilateral interstitial and airspace opacities and pleural effusions are stable. There is subcutaneous emphysema. Cardiac silhouette is enlarged. No acute skeletal abnormality. Signed: Eric [facility] Verified Date/Time: 05/28/2019 08:47:01 Reading Location: [facility] Radiology Reading Room [id number] 04:25:00 Test Item Value Reference Range Comments PHOSPHORUS (BEAKER) (test code = 604) 3.0 mg/dL 2.3-4.7 Ammunition Officer ID - SHANON [id number] 04:25:00 Test Item Value Reference Range Comments MAGNESIUM (BEAKER) (test code = 627) 2.2 mg/dL 1.6-2.6 Ammunition Officer ID - PICARMEN LBASIC METABOLIC [id number] 04:25:00 Test Item Value Reference Range Comments SODIUM (BEAKER) (test 142 meq/L 136-145 code = 381) POTASSIUM (BEAKER) (test 4.0 meq/L 3.5-5.1 code = 379) CHLORIDE (BEAKER) (test 113 meq/L 98-107 code = 382) CO2 (BEAKER) (test code = 22 meq/L 22-29 355) BLOOD UREA NITROGEN 20 mg/dL 7-21 (BEAKER) (test code = 354) CREATININE (BEAKER) (test 0.76 mg/dL 0.57-1.25 code = 358) GLUCOSE RANDOM (BEAKER) 68 mg/dL 70-105 (test code = 652) CALCIUM (BEAKER) (test 8.5 mg/dL 8.4-10.2 code = 697) EGFR (BEAKER) (test code 72 mL/min/1.73 sq m EST IMATED GFR IS NOT = 1092) ACCURATE CREA TININE CLEARANCE IN PRE DICTING GLOMERULAR FILTR ATION RATE. ESTIMATED GFR IS NOT APPLICABLE F OR DIALYSIS PATIENT S. Ammunition Officer ID - SHANON [id number] 04:25:00 Test Item Value Reference Range Comments AMYLASE (BEAKER) (test code = 349) 146 U/L 25-125 Ammunition Officer ID - SHANON [id number] 04:25:00 Test Item Value Reference Range Comments LIPASE (ROSELINEAKER) (test code = 749) 102 U/L 8-78 Ammunition Officer ID - SHANON [id number] 03:54:00 Test Item Value Reference Range Comments PROTIME (BEAKER) (test code = 759) 14.5 seconds 11.9-14.2 INR (BEAKER) (test code = 370) 1.2 <=5.9 PARTIAL THROMBOPLASTIN TIME (BEAKER) (test code 35.3 seconds 22.5-36.0 = 760) Effective 08/27/2018: PT Reference Range ChangeNew: 11.9-14.2 Previous: 11.7- 14.7RECOMMENDED COUMADIN/WARFARIN INR THERAPY RANGESSTANDARD DOSE: 2.0-3.0 Includes: PROPHYLAXIS for venous thrombosis, systemic embolization; TREATMENT for venous thrombosis and/or pulmonary embolus.HIGH RISK: Target INR is2.5-3.5 for patients wiht mechanical heart valves.CBC W/PLT COUNT & AUTO [id number] 03:54:00 Test Item Value Reference Range Comments WHITE BLOOD CELL COUNT (BEAKER) (test code = 12.2 K/ L 3.5 -10.5 775) RED BLOOD CELL COUNT (BEAKER) (test code = 761) 2.66 M/ L 3.93-5.22 HEMOGLOBIN (BEAKER) (test code = 410) 8.2 GM/DL 11.2-15.7 HEMATOCRIT (BEAKER) (test code = 411) 25.9 % 34.1-44.9 MEAN CORPUSCULAR VOLUME (BEAKER) (test code = 97.4 fL 79 .4-94.8 753) MEAN CORPUSCULAR HEMOGLOBIN (BEAKER) (test code 30.8 pg 25.6-32.2 = 751) MEAN CORPUSCULAR HEMOGLOBIN CONC (BEAKER) (test 31.7 GM/DL 32.2-35.5 code = 752) RED CELL DISTRIBUTION WIDTH (BEAKER) (test code 13.2 % 11.7-14.4 = 412) PLATELET COUNT (BEAKER) (test code = 756) 160 K/CU MM 150-45 0 MEAN PLATELET VOLUME (BEAKER) (test code = 754) 12.1 fL 9.4-12.3 NUCLEATED RED BLOOD CELLS (BEAKER) (test code = 0 /100 WBC 0-0 413) NEUTROPHILS RELATIVE PERCENT (BEAKER) (test code 88 % = 429) LYMPHOCYTES RELATIVE PERCENT (BEAKER) (test code 5 % = 430) MONOCYTES RELATIVE PERCENT (BEAKER) (test code = 5 % 431) EOSINOPHILS RELATIVE PERCENT (BEAKER) (test code 0 % = 432) BASOPHILS RELATIVE PERCENT (BEAKER) (test code = 0 % 437) NEUTROPHILS ABSOLUTE COUNT (BEAKER) (test code = 10.75 K/ L 1.56-6.13 670) LYMPHOCYTES ABSOLUTE COUNT (BEAKER) (test code = 0.61 K/ L 1.18-3.74 414) MONOCYTES ABSOLUTE COUNT (BEAKER) (test code = 0.66 K/ L 0 .24-0.36 415) EOSINOPHILS ABSOLUTE COUNT (BEAKER) (test code = 0.03 K/ L 0.04-0.36 416) BASOPHILS ABSOLUTE COUNT (BEAKER) (test code = 0.04 K/ L 0 .01-0.08 417) IMMATURE GRANULOCYTES-RELATIVE PERCENT (BEAKER) 1 % 0-1 (test code = 2801) POCT-GLUCOSE [id number] 18:59:00 Test Item Value Reference Range Comments POC-GLUCOSE METER (BEAKER) 87 mg/dL 70-110 : ADELITA RENEE AT [facility] [address] (test code = 1538) [facility], [address]: Ammunition Officer/Technic shanthi ID = [id number] for DIANA ALBERT CBC W/PLT COUNT & AUTO [id number] 12:08:00 Test Item Value Reference Range Comments WHITE BLOOD CELL COUNT (BEAKER) (test code = 9.0 K/ L 3.5 -10.5 775) RED BLOOD CELL COUNT (BEAKER) (test code = 761) 2.61 M/ L 3.93-5.22 HEMOGLOBIN (BEAKER) (test code = 410) 8.0 GM/DL 11.2-15.7 HEMATOCRIT (BEAKER) (test code = 411) 25.2 % 34.1-44.9 MEAN CORPUSCULAR VOLUME (BEAKER) (test code = 96.6 fL 79 .4-94.8 753) MEAN CORPUSCULAR HEMOGLOBIN (BEAKER) (test code 30.7 pg 25.6-32.2 = 751) MEAN CORPUSCULAR HEMOGLOBIN CONC (BEAKER) (test 31.7 GM/DL 32.2-35.5 code = 752) RED CELL DISTRIBUTION WIDTH (BEAKER) (test code 13.3 % 11.7-14.4 = 412) PLATELET COUNT (BEAKER) (test code = 756) 174 K/CU MM 150-45 0 MEAN PLATELET VOLUME (BEAKER) (test code = 754) 11.5 fL 9.4-12.3 NUCLEATED RED BLOOD CELLS (BEAKER) (test code = 0 /100 WBC 0-0 413) NEUTROPHILS RELATIVE PERCENT (BEAKER) (test code 86 % = 429) LYMPHOCYTES RELATIVE PERCENT (BEAKER) (test code 6 % = 430) MONOCYTES RELATIVE PERCENT (BEAKER) (test code = 7 % 431) EOSINOPHILS RELATIVE PERCENT (BEAKER) (test code 0 % = 432) BASOPHILS RELATIVE PERCENT (BEAKER) (test code = 0 % 437) NEUTROPHILS ABSOLUTE COUNT (BEAKER) (test code = 7.75 K/ L 1.56-6.13 670) LYMPHOCYTES ABSOLUTE COUNT (BEAKER) (test code = 0.52 K/ L 1.18-3.74 414) MONOCYTES ABSOLUTE COUNT (BEAKER) (test code = 0.67 K/ L 0 .24-0.36 415) EOSINOPHILS ABSOLUTE COUNT (BEAKER) (test code = 0.01 K/ L 0.04-0.36 416) BASOPHILS ABSOLUTE COUNT (BEAKER) (test code = 0.03 K/ L 0 .01-0.08 417) IMMATURE GRANULOCYTES-RELATIVE PERCENT (BEAKER) 1 % 0-1 (test code = 2801) POCT-GLUCOSE [id number] 12:03:00 Test Item Value Reference Range Comments POC-GLUCOSE METER (BEAKER) 77 mg/dL 70-110 : ADELITA RENEE AT [place] [id number] [facility] (test code = 1538) [facility], [address]: Ammunition Officer/Technic shanthi ID = [id number] for DIANA ALBERT RAD, CHEST, 1 VIEW, NON [id number] 09:12:00Reason for exam:- >intubatedShould this be performed at the bedside?->YesFINAL REPORT RAD, CHEST, 1 VIEW, NON DEPT INDICATION: intubated COMPARISON: Prior day's exam FINDINGS: Portable frontal view of the chest. IMPRESSION: Limited by underpenetration.Support Lines: Stable. Lungs and pleura: Increasing interstitial markings may reflect worsening edema or be artifactual due to technique. Trace left effusion suspected. There is apical pleural capping on the left. No pneumothorax.Heart and mediastinum: Stable contours.Additional findings: Involving subcutaneous emphysema bilaterally. Signed: JR Pan Robert MDReport Verified Date/Time: 05/27/2019 09:12:00 Reading Location: [facility] Radiology Reading Room POCT-GLUCOSE [id number] 06:00:00 Test Item Value Reference Range Comments POC-GLUCOSE METER (BEAKER) 83 mg/dL 70-110 : ADELITA RENEE AT [address] (test code = 1538) [facility], [address]: Ammunition Officer/Technic shanthi ID = [id number] for MAREK CHRISTIANE CBC W/PLT COUNT & AUTO [id number] 04:16:00 Test Item Value Reference Range Comments WHITE BLOOD CELL COUNT (BEAKER) (test code = 10.1 K/ L 3.5 -10.5 775) RED BLOOD CELL COUNT (BEAKER) (test code = 761) 2.38 M/ L 3.93-5.22 HEMOGLOBIN (BEAKER) (test code = 410) 7.5 GM/DL 11.2-15.7 HEMATOCRIT (BEAKER) (test code = 411) 23.2 % 34.1-44.9 MEAN CORPUSCULAR VOLUME (BEAKER) (test code = 97.5 fL 79 .4-94.8 753) MEAN CORPUSCULAR HEMOGLOBIN (BEAKER) (test code 31.5 pg 25.6-32.2 = 751) MEAN CORPUSCULAR HEMOGLOBIN CONC (BEAKER) (test 32.3 GM/DL 32.2-35.5 code = 752) RED CELL DISTRIBUTION WIDTH (BEAKER) (test code 13.3 % 11.7-14.4 = 412) PLATELET COUNT (BEAKER) (test code = 756) 192 K/CU MM 150-45 0 MEAN PLATELET VOLUME (BEAKER) (test code = 754) 12.0 fL 9.4-12.3 NUCLEATED RED BLOOD CELLS (BEAKER) (test code = 0 /100 WBC 0-0 413) NEUTROPHILS RELATIVE PERCENT (BEAKER) (test code 82 % = 429) LYMPHOCYTES RELATIVE PERCENT (BEAKER) (test code 10 % = 430) MONOCYTES RELATIVE PERCENT (BEAKER) (test code = 7 % 431) EOSINOPHILS RELATIVE PERCENT (BEAKER) (test code 0 % = 432) BASOPHILS RELATIVE PERCENT (BEAKER) (test code = 0 % 437) NEUTROPHILS ABSOLUTE COUNT (BEAKER) (test code = 8.24 K/ L 1.56-6.13 670) LYMPHOCYTES ABSOLUTE COUNT (BEAKER) (test code = 1.04 K/ L 1.18-3.74 414) MONOCYTES ABSOLUTE COUNT (BEAKER) (test code = 0.74 K/ L 0 .24-0.36 415) EOSINOPHILS ABSOLUTE COUNT (BEAKER) (test code = 0.01 K/ L 0.04-0.36 416) BASOPHILS ABSOLUTE COUNT (BEAKER) (test code = 0.03 K/ L 0 .01-0.08 417) IMMATURE GRANULOCYTES-RELATIVE PERCENT (BEAKER) 0 % 0-1 (test code = 2801) [id number] 04:03:00 Test Item Value Reference Range Comments PHOSPHORUS (BEAKER) (test code = 604) 2.0 mg/dL 2.3-4.7 Ammunition Officer ID - YOSSI [id number] 04:03:00 Test Item Value Reference Range Comments MAGNESIUM (BEAKER) (test code = 627) 1.9 mg/dL 1.6-2.6 Ammunition Officer ID - YOSSI MBASIC METABOLIC [id number] 04:03:00 Test Item Value Reference Range Comments SODIUM (BEAKER) (test 145 meq/L 136-145 code = 381) POTASSIUM (BEAKER) (test 3.8 meq/L 3.5-5.1 code = 379) CHLORIDE (BEAKER) (test 116 meq/L 98-107 code = 382) CO2 (BEAKER) (test code = 25 meq/L 22-29 355) BLOOD UREA NITROGEN 20 mg/dL 7-21 (BEAKER) (test code = 354) CREATININE (BEAKER) (test 0.82 mg/dL 0.57-1.25 code = 358) GLUCOSE RANDOM (BEAKER) 94 mg/dL 70-105 (test code = 652) CALCIUM (BEAKER) (test 8.4 mg/dL 8.4-10.2 code = 697) EGFR (BEAKER) (test code 66 mL/min/1.73 sq m EST IMATED GFR IS NOT = 1092) ACCURATE CREA TININE CLEARANCE IN PRE DICTING GLOMERULAR FILTR ATION RATE. ESTIMATED GFR IS NOT APPLICABLE F OR DIALYSIS PATIENT S. Ammunition Officer ID - YOSSI [id number] 03:54:00 Test Item Value Reference Range Comments PROTIME (BEAKER) (test code = 759) 15.3 seconds 11.9-14.2 INR (BEAKER) (test code = 370) 1.2 <=5.9 PARTIAL THROMBOPLASTIN TIME (BEAKER) (test code 33.3 seconds 22.5-36.0 = 760) Effective 08/27/2018: PT Reference Range ChangeNew: 11.9-14.2 Previous: 11.7- 14.7RECOMMENDED COUMADIN/WARFARIN INR THERAPY RANGESSTANDARD DOSE: 2.0-3.0 Includes: PROPHYLAXIS for venous thrombosis, systemic embolization; TREATMENT for venous thrombosis and/or pulmonary embolus.HIGH RISK: Target INR is2.5-3.5 for patients wiht mechanical heart valves.BLOOD GAS, [id number] 03:52:00 Test Item Value Reference Range Comments PH VENOUS (BEAKER) (test code = 701) 7.39 7.32-7.42 PCO2 VENOUS (BEAKER) (test code = 755) 44 mmHg 41-51 PO2 VENOUS (BEAKER) (test code = 702) 68 mmHg 25-40 O2 SATURATION VENOUS (BEAKER) (test code = 703) 93.4 % 40.0-70.0 HCO3 VENOUS (BEAKER) (test code = 705) 26 mmol/L 21-29 BASE EXCESS VENOUS (BEAKER) (test code = 704) 0.8 mmol/L -2 .0-3.0 PATIENT TEMPERATURE (BEAKER) (test code = 1818) 37.0 C POCT-GLUCOSE [id number] 00:14:00 Test Item Value Reference Range Comments POC-GLUCOSE METER (BEAKER) 89 mg/dL 70-110 : ADELITA RENEE AT [facility] [address] [facility] (test code = 1538) [facility], [address]: Ammunition Officer/Technic shanthi ID = [id number] for DIANA SHAH [id number] 23:52:00 Test Item Value Reference Range Comments PHOSPHORUS (BEAKER) (test code = 604) 2.3 mg/dL 2.3-4.7 Ammunition Officer ID - [id number] 23:52:00 Test Item Value Reference Range Comments MAGNESIUM (BEAKER) (test code = 627) 2.0 mg/dL 1.6-2.6 Ammunition Officer ID - DBBASIC METABOLIC [id number] 23:52:00 Test Item Value Reference Range Comments SODIUM (BEAKER) (test 144 meq/L 136-145 code = 381) POTASSIUM (BEAKER) (test 3.7 meq/L 3.5-5.1 code = 379) CHLORIDE (BEAKER) (test 116 meq/L 98-107 code = 382) CO2 (BEAKER) (test code = 22 meq/L 22-29 355) BLOOD UREA NITROGEN 20 mg/dL 7-21 (BEAKER) (test code = 354) CREATININE (BEAKER) (test 0.79 mg/dL 0.57-1.25 code = 358) GLUCOSE RANDOM (BEAKER) 99 mg/dL 70-105 (test code = 652) CALCIUM (BEAKER) (test 8.2 mg/dL 8.4-10.2 code = 697) EGFR (BEAKER) (test code 69 mL/min/1.73 sq m EST IMATED GFR IS NOT = 1092) ACCURATE CREA TININE CLEARANCE IN PRE DICTING GLOMERULAR FILTR ATION RATE. ESTIMATED GFR IS NOT APPLICABLE F OR DIALYSIS PATIENT S. Ammunition Officer ID - DBHEMOGLOBIN AND [id number] 23:18:00 Test Item Value Reference Range Comments HEMOGLOBIN (BEAKER) (test code = 410) 7.7 GM/DL 11.2-15.7 HEMATOCRIT (BEAKER) (test code = 411) 23.6 % 34.1-44.9 Ammunition Officer ID - [id number], [id number] 23:09:00 Test Item Value Reference Range Comments CALCIUM IONIZED (BEAKER) (test code = 698) 1.17 mmol/L 1.12- 1.27 PH, BLOOD (BEAKER) (test code = 1810) 7.40 POCT-GLUCOSE [id number] 18:40:00 Test Item Value Reference Range Comments POC-GLUCOSE METER (BEAKER) 92 mg/dL 70-110 : ADELITA RENEE AT [address] (test code = 1538) [facility], [address]: Ammunition Officer/Technic shanthi ID = [id number] for KATIE HUSTON POCT-GLUCOSE [id number] 13:08:00 Test Item Value Reference Range Comments POC-GLUCOSE METER (BEAKER) 93 mg/dL 70-110 : ADELITA RENEE AT [address] (test code = 1538) [facility], [address]: Ammunition Officer/Technic shanthi ID = [id number] for KATIE HUSTON RAD, CHEST, 1 VIEW, NON [id number] 10:19:00Reason for exam:- >intubatedShould this be performed at the bedside?->YesFINAL REPORT RAD, CHEST, 1 VIEW, NON DEPT INDICATION: intubated COMPARISON: Prior day's exam FINDINGS: Portable frontal view of the chest. IMPRESSION: Support Lines: Stable. Nasogastric tube side port projects well above the GE junction, similar to the prior examination.Lungsand pleura: Increasing right basilar congestion and small right effusion. Left lung is clear. No pneumothorax.Heart and mediastinum: Contours are grossly stable. No distinct surgical changes are identified over the mediastinal shadows, however the air-fluid level seen in the examination of March 30, 2019 is no longer present. This represents either sequela of hernia repair or collapse of a large sliding hiatal hernia.Additional findings: Subcutaneous emphysema noted along the thoracic abraham bilaterally. Correlation for recent abdominal surgical intervention advised. Signed: JR Maxim, Harsha MDReport Verified Date/Time: 05/26/2019 10:19:35 Reading Location: [facility] [id number] 03:59:00 Test Item Value Reference Range Comments PHOSPHORUS (BEAKER) (test code = 604) 3.7 mg/dL 2.3-4.7 Ammunition Officer ID - YOSSI [id number] 03:59:00 Test Item Value Reference Range Comments MAGNESIUM (BEAKER) (test code = 627) 2.2 mg/dL 1.6-2.6 Ammunition Officer ID - YOSSI MBASIC METABOLIC [id number] 03:59:00 Test Item Value Reference Range Comments SODIUM (BEAKER) (test 146 meq/L 136-145 code = 381) POTASSIUM (BEAKER) (test 4.0 meq/L 3.5-5.1 code = 379) CHLORIDE (BEAKER) (test 115 meq/L 98-107 code = 382) CO2 (BEAKER) (test code = 23 meq/L 22-29 355) BLOOD UREA NITROGEN 21 mg/dL 7-21 (BEAKER) (test code = 354) CREATININE (BEAKER) (test 0.80 mg/dL 0.57-1.25 code = 358) GLUCOSE RANDOM (BEAKER) 113 mg/dL 70-105 (test code = 652) CALCIUM (BEAKER) (test 8.5 mg/dL 8.4-10.2 code = 697) EGFR (BEAKER) (test code 68 mL/min/1.73 sq m EST IMATED GFR IS NOT = 1092) ACCURATE CREA TININE CLEARANCE IN PRE DICTING GLOMERULAR FILTR ATION RATE. ESTIMATED GFR IS NOT APPLICABLE F OR DIALYSIS PATIENT S. Ammunition Officer ID - YOSSI [id number] 03:59:00 Test Item Value Reference Range Comments AMYLASE (BEAKER) (test code = 349) 148 U/L 25-125 Ammunition Officer ID - YOSSI [id number] 03:59:00 Test Item Value Reference Range Comments LIPASE (BEAKER) (test code = 749) 153 U/L 8-78 Ammunition Officer ID - YOSSI MTROPONIN [id number] 03:59:00 Test Item Value Reference Range Comments TROPONIN I (BEAKER) (test code = 397) 0.05 ng/mL 0.00-0.03 Troponin I (TnI) levels must be interpreted in the context of the presenting symptoms and the clinical findings. Elevated TnI levels indicate myocardial damage, but are not specific for ischemic heart disease. Elevated TnI levels are seen in patients with other cardiac conditions (including myocarditis and congestive heart failure), and slight TnI elevations occur in patients with other conditions, including sepsis, renal failure, acidosis, acute neurological disease, and persistent tachyarrhythmia.Ammunition Officer ID - YOSSI [id number] 03:52:00 Test Item Value Reference Range Comments PROTIME (BEAKER) (test code = 759) 14.4 seconds 11.9-14.2 INR (BEAKER) (test code = 370) 1.2 <=5.9 PARTIAL THROMBOPLASTIN TIME (BEAKER) (test code 27.5 seconds 22.5-36.0 = 760) Effective 08/27/2018: PT Reference Range ChangeNew: 11.9-14.2 Previous: 11.7- 14.7RECOMMENDED COUMADIN/WARFARIN INR THERAPY RANGESSTANDARD DOSE: 2.0-3.0 Includes: PROPHYLAXIS for venous thrombosis, systemic embolization; TREATMENT for venous thrombosis and/or pulmonary embolus.HIGH RISK: Target INR is2.5-3.5 for patients wiht mechanical heart valves.BLOOD GAS, [id number] 03:40:00 Test Item Value Reference Range Comments PH ARTERIAL (BEAKER) (test code = 383) 7.37 7.35-7.45 PCO2 ARTERIAL (BEAKER) (test code = 384) 44 mmHg 35-45 PO2 ARTERIAL (BEAKER) (test code = 385) 114 mmHg 80-90 O2 SATURATION ARTERIAL (BEAKER) (test code = 98.1 % 96. 0-97.0 386) HCO3 ARTERIAL (BEAKER) (test code = 388) 25 mmol/L 21-29 BASE EXCESS ARTERIAL (BEAKER) (test code = 387) -0.7 mmol/L -2.0-3.0 PATIENT TEMPERATURE (BEAKER) (test code = 1818) 36.5 C FIO2 (BEAKER) (test code = 1819) 60.0 % CBC W/PLT COUNT & AUTO [id number] 03:38:00 Test Item Value Reference Range Comments WHITE BLOOD CELL COUNT (BEAKER) (test code = 7.9 K/ L 3.5 -10.5 775) RED BLOOD CELL COUNT (BEAKER) (test code = 761) 2.88 M/ L 3.93-5.22 HEMOGLOBIN (BEAKER) (test code = 410) 9.0 GM/DL 11.2-15.7 HEMATOCRIT (BEAKER) (test code = 411) 27.9 % 34.1-44.9 MEAN CORPUSCULAR VOLUME (BEAKER) (test code = 96.9 fL 79 .4-94.8 753) MEAN CORPUSCULAR HEMOGLOBIN (BEAKER) (test code 31.3 pg 25.6-32.2 = 751) MEAN CORPUSCULAR HEMOGLOBIN CONC (BEAKER) (test 32.3 GM/DL 32.2-35.5 code = 752) RED CELL DISTRIBUTION WIDTH (BEAKER) (test code 12.7 % 11.7-14.4 = 412) PLATELET COUNT (BEAKER) (test code = 756) 191 K/CU MM 150-45 0 MEAN PLATELET VOLUME (BEAKER) (test code = 754) 11.6 fL 9.4-12.3 NUCLEATED RED BLOOD CELLS (BEAKER) (test code = 0 /100 WBC 0-0 413) NEUTROPHILS RELATIVE PERCENT (BEAKER) (test code 90 % = 429) LYMPHOCYTES RELATIVE PERCENT (BEAKER) (test code 7 % = 430) MONOCYTES RELATIVE PERCENT (BEAKER) (test code = 4 % 431) EOSINOPHILS RELATIVE PERCENT (BEAKER) (test code 0 % = 432) BASOPHILS RELATIVE PERCENT (BEAKER) (test code = 0 % 437) NEUTROPHILS ABSOLUTE COUNT (BEAKER) (test code = 7.02 K/ L 1.56-6.13 670) LYMPHOCYTES ABSOLUTE COUNT (BEAKER) (test code = 0.51 K/ L 1.18-3.74 414) MONOCYTES ABSOLUTE COUNT (BEAKER) (test code = 0.30 K/ L 0 .24-0.36 415) EOSINOPHILS ABSOLUTE COUNT (BEAKER) (test code = 0.00 K/ L 0.04-0.36 416) BASOPHILS ABSOLUTE COUNT (BEAKER) (test code = 0.01 K/ L 0 .01-0.08 417) IMMATURE GRANULOCYTES-RELATIVE PERCENT (BEAKER) 0 % 0-1 (test code = 2801) POCT-GLUCOSE [id number] 00:01:00 Test Item Value Reference Range Comments POC-GLUCOSE METER (BEAKER) 105 mg/dL 70-110 : ADELITA RENEE AT [facility] [address] [facility] (test code = 1538) [facility], [address]: Ammunition Officer/Technic shanthi ID = [id number] for Cesar Moseley [id number] 23:26:00 Test Item Value Reference Range Comments PHOSPHORUS (BEAKER) (test code = 604) 4.0 mg/dL 2.3-4.7 Ammunition Officer ID - [id number] 23:26:00 Test Item Value Reference Range Comments MAGNESIUM (BEAKER) (test code = 627) 1.6 mg/dL 1.6-2.6 Ammunition Officer ID - BSBASIC METABOLIC [id number] 23:26:00 Test Item Value Reference Range Comments SODIUM (BEAKER) (test 146 meq/L 136-145 code = 381) POTASSIUM (BEAKER) (test 3.8 meq/L 3.5-5.1 code = 379) CHLORIDE (BEAKER) (test 115 meq/L 98-107 code = 382) CO2 (BEAKER) (test code = 23 meq/L 22-29 355) BLOOD UREA NITROGEN 23 mg/dL 7-21 (BEAKER) (test code = 354) CREATININE (BEAKER) (test 0.84 mg/dL 0.57-1.25 code = 358) GLUCOSE RANDOM (BEAKER) 135 mg/dL 70-105 (test code = 652) CALCIUM (BEAKER) (test 8.4 mg/dL 8.4-10.2 code = 697) EGFR (BEAKER) (test code 64 mL/min/1.73 sq m EST IMATED GFR IS NOT = 1092) ACCURATE CREA TININE CLEARANCE IN PRE DICTING GLOMERULAR FILTR ATION RATE. ESTIMATED GFR IS NOT APPLICABLE F OR DIALYSIS PATIENT S. Ammunition Officer ID - BSLACTIC ACID, [id number] 23:23:00 Test Item Value Reference Range Comments LACTATE BLOOD ARTERIAL (2) (BEAKER) (test code = 0.8 mmol/L 0.5-2.2 2874) Ammunition Officer ID - BSHEMOGLOBIN AND [id number] 23:05:00 Test Item Value Reference Range Comments HEMOGLOBIN (BEAKER) (test code = 410) 8.9 GM/DL 11.2-15.7 HEMATOCRIT (BEAKER) (test code = 411) 27.0 % 34.1-44.9 Ammunition Officer ID - [id number] GAS, [id number] 23:03:00 Test Item Value Reference Range Comments PH ARTERIAL (BEAKER) (test code = 383) 7.34 7.35-7.45 PCO2 ARTERIAL (BEAKER) (test code = 384) 45 mmHg 35-45 PO2 ARTERIAL (BEAKER) (test code = 385) 206 mmHg 80-90 O2 SATURATION ARTERIAL (BEAKER) (test code = 99.3 % 96. 0-97.0 386) HCO3 ARTERIAL (BEAKER) (test code = 388) 24 mmol/L 21-29 BASE EXCESS ARTERIAL (BEAKER) (test code = 387) -2.0 mmol/L -2.0-3.0 PATIENT TEMPERATURE (BEAKER) (test code = 1818) 36.5 C FIO2 (BEAKER) (test code = 1819) 60.0 % TROPONIN [id number] 19:33:00 Test Item Value Reference Range Comments TROPONIN I (BEAKER) (test code = 397) 0.04 ng/mL 0.00-0.03 Troponin I (TnI) levels must be interpreted in the context of the presenting symptoms and the clinical findings. Elevated TnI levels indicate myocardial damage, but are not specific for ischemic heart disease. Elevated TnI levels are seen in patients with other cardiac conditions (including myocarditis and congestive heart failure), and slight TnI elevations occur in patients with other conditions, including sepsis, renal failure, acidosis, acute neurological disease, and persistent tachyarrhythmia.Ammunition Officer JUAN COBB EBASIC METABOLIC [id number] 19:25:00 Test Item Value Reference Range Comments SODIUM (BEAKER) (test 146 meq/L 136-145 code = 381) POTASSIUM (BEAKER) (test 3.8 meq/L 3.5-5.1 code = 379) CHLORIDE (BEAKER) (test 114 meq/L 98-107 code = 382) CO2 (BEAKER) (test code = 21 meq/L 22-29 355) BLOOD UREA NITROGEN 23 mg/dL 7-21 (BEAKER) (test code = 354) CREATININE (BEAKER) (test 1.06 mg/dL 0.57-1.25 code = 358) GLUCOSE RANDOM (BEAKER) 164 mg/dL 70-105 (test code = 652) CALCIUM (BEAKER) (test 8.8 mg/dL 8.4-10.2 code = 697) EGFR (BEAKER) (test code 49 mL/min/1.73 sq m EST IMATED GFR IS NOT = 1092) ACCURATE CREA TININE CLEARANCE IN PRE DICTING GLOMERULAR FILTR ATION RATE. ESTIMATED GFR IS NOT APPLICABLE F OR DIALYSIS PATIENT S. Ammunition Officer JUAN COBB [id number] 19:24:00 Test Item Value Reference Range Comments MAGNESIUM (BEAKER) (test code 1.5 mg/dL 1.6-2.6 Sp ecimen moderately hemolyzed = 627) Ammunition Officer ID - JORDYN [id number] 19:24:00 Test Item Value Reference Range Comments PHOSPHORUS (BEAKER) (test code 3.8 mg/dL 2.3-4.7 S pecimen moderately hemolyzed = 604) Ammunition Officer ID Roderick COBB EPROTHROMBIN TIME/[id number] 19:21:00 Test Item Value Reference Range Comments PROTIME (BEAKER) (test code = 759) 14.6 seconds 11.9-14.2 INR (BEAKER) (test code = 370) 1.2 <=5.9 Effective 08/27/2018: PT Reference Range ChangeNew: 11.9-14.2 Previous: 11.7- 14.7RECOMMENDED COUMADIN/WARFARIN INR THERAPY RANGESSTANDARD DOSE: 2.0-3.0 Includes: PROPHYLAXIS for venous thrombosis, systemic embolization; TREATMENT for venous thrombosis and/or pulmonary embolus.HIGH RISK: Target INR is2.5-3.5 for patients wiht mechanical heart valves.CBC (HEMOGRAM ONLY)[id number] 19:13:00 Test Item Value Reference Range Comments WHITE BLOOD CELL COUNT (BEAKER) (test code = 14.0 K/ L 3.5 -10.5 775) RED BLOOD CELL COUNT (BEAKER) (test code = 761) 3.06 M/ L 3.93-5.22 HEMOGLOBIN (BEAKER) (test code = 410) 9.6 GM/DL 11.2-15.7 HEMATOCRIT (BEAKER) (test code = 411) 29.2 % 34.1-44.9 MEAN CORPUSCULAR VOLUME (BEAKER) (test code = 95.4 fL 79 .4-94.8 753) MEAN CORPUSCULAR HEMOGLOBIN (BEAKER) (test code 31.4 pg 25.6-32.2 = 751) MEAN CORPUSCULAR HEMOGLOBIN CONC (BEAKER) (test 32.9 GM/DL 32.2-35.5 code = 752) RED CELL DISTRIBUTION WIDTH (BEAKER) (test code 12.6 % 11.7-14.4 = 412) PLATELET COUNT (BEAKER) (test code = 756) 212 K/CU MM 150-45 0 MEAN PLATELET VOLUME (BEAKER) (test code = 754) 11.3 fL 9.4-12.3 NUCLEATED RED BLOOD CELLS (BEAKER) (test code = 0 /100 WBC 0-0 413) BLOOD GAS, [id number] 19:10:00 Test Item Value Reference Range Comments PH ARTERIAL (BEAKER) (test code = 383) 7.32 7.35-7.45 PCO2 ARTERIAL (BEAKER) (test code = 384) 45 mmHg 35-45 PO2 ARTERIAL (BEAKER) (test code = 385) 150 mmHg 80-90 O2 SATURATION ARTERIAL (BEAKER) (test code = 98.8 % 96. 0-97.0 386) HCO3 ARTERIAL (BEAKER) (test code = 388) 22 mmol/L 21-29 BASE EXCESS ARTERIAL (BEAKER) (test code = 387) -3.8 mmol/L -2.0-3.0 PATIENT TEMPERATURE (BEAKER) (test code = 1818) 36.5 C FIO2 (BEAKER) (test code = 1819) 60.0 % BLOOD GAS, [id number] 17:31:00 Test Item Value Reference Range Comments PH ARTERIAL (BEAKER) (test code = 383) 7.31 7.35-7.45 PCO2 ARTERIAL (BEAKER) (test code = 384) 46 mmHg 35-45 PO2 ARTERIAL (BEAKER) (test code = 385) 188 mmHg 80-90 O2 SATURATION ARTERIAL (BEAKER) (test code = 99.2 % 96. 0-97.0 386) HCO3 ARTERIAL (BEAKER) (test code = 388) 23 mmol/L 21-29 BASE EXCESS ARTERIAL (BEAKER) (test code = 387) -3.8 mmol/L -2.0-3.0 PATIENT TEMPERATURE (BEAKER) (test code = 1818) 36.4 C FIO2 (BEAKER) (test code = 1819) 50.0 % RAD, CHEST, 1 VIEW, NON [id number] 16:26:00Reason for exam:->central line insertionShould this be performed at the bedside?->YesFINAL REPORT Chest, one view History: Central line insertion Comparison: 03/30 Findings:Satisfactory position of endotracheal tube. Left internal jugular central venous catheter terminates in the superior vena cava. No pneumothorax is apparent. Nasogastric tube terminates either within a hiatal hernia or gastric pull-through. The lungs are clear. No pleural effusion. Normal size heart. Impression:Lines and life support tubes as described above. Signed: Raza Hernandez MDReport Verified Date/Time: 05/25/2019 16:26:34 Reading Location: [facility] Radiology Reading Room TROPONIN [id number] 15:47:00 Test Item Value Reference Range Comments TROPONIN I (BEAKER) (test code = 397) < ng/mL 0.00-0.03 Troponin I (TnI) levels must be interpreted in the context of the presenting symptoms and the clinical findings. Elevated TnI levels indicate myocardial damage, but are not specific for ischemic heart disease. Elevated TnI levels are seen in patients with other cardiac conditions (including myocarditis and congestive heart failure), and slight TnI elevations occur in patients with other conditions, including sepsis, renal failure, acidosis, acute neurological disease, and persistent tachyarrhythmia.Sidra COBB ECOMPREHENSIVE METABOLIC [id number] 15:41:00 Test Item Value Reference Range Comments TOTAL PROTEIN (BEAKER) 5.0 gm/dL 6.0-8.3 Specimen moderately (test code = 770) hemolyzed ALBUMIN (BEAKER) (test 3.6 g/dL 3.5-5.0 Specimen moderately code = 1145) hemolyzed ALKALINE PHOSPHATASE 38 U/L 40-150 (BEAKER) (test code = 346) BILIRUBIN TOTAL (BEAKER) 0.5 mg/dL 0.2-1.2 Specime n moderately (test code = 377) hemolyzed SODIUM (BEAKER) (test code 147 meq/L 136-145 = 381) POTASSIUM (BEAKER) (test 3.6 meq/L 3.5-5.1 Specime n moderately code = 379) hemolyzed CHLORIDE (BEAKER) (test 113 meq/L 98-107 code = 382) CO2 (BEAKER) (test code = 24 meq/L 22-29 355) BLOOD UREA NITROGEN 24 mg/dL 7-21 (BEAKER) (test code = 354) CREATININE (BEAKER) (test 1.35 mg/dL 0.57-1.25 Specim en moderately code = 358) hemolyzed GLUCOSE RANDOM (BEAKER) 127 mg/dL 70-105 (test code = 652) CALCIUM (BEAKER) (test 8.5 mg/dL 8.4-10.2 code = 697) AST (SGOT) (BEAKER) (test 16 U/L 5-34 Specim en moderately code = 353) hemolyzed ALT (SGPT) (BEAKER) (test 10 U/L 6-55 Specim en moderately code = 347) hemolyzed EGFR (BEAKER) (test code = 37 mL/min/1.73 sq m E STIMATED GFR IS NOT 1092) ACCURATE CREA TININE CLEARANCE IN PRE DICTING GLOMERULAR FILTR ATION RATE. ESTIMATED GFR IS NOT APPLICABLE F OR DIALYSIS PATIENT S. Sidra COBB ECBC W/PLT COUNT & AUTO [id number] 15:23:00 Test Item Value Reference Range Comments WHITE BLOOD CELL COUNT (BEAKER) (test code = 9.6 K/ L 3.5 -10.5 775) RED BLOOD CELL COUNT (BEAKER) (test code = 761) 2.58 M/ L 3.93-5.22 HEMOGLOBIN (BEAKER) (test code = 410) 8.0 GM/DL 11.2-15.7 HEMATOCRIT (BEAKER) (test code = 411) 24.6 % 34.1-44.9 MEAN CORPUSCULAR VOLUME (BEAKER) (test code = 95.3 fL 79 .4-94.8 753) MEAN CORPUSCULAR HEMOGLOBIN (BEAKER) (test code 31.0 pg 25.6-32.2 = 751) MEAN CORPUSCULAR HEMOGLOBIN CONC (BEAKER) (test 32.5 GM/DL 32.2-35.5 code = 752) RED CELL DISTRIBUTION WIDTH (BEAKER) (test code 12.4 % 11.7-14.4 = 412) PLATELET COUNT (BEAKER) (test code = 756) 167 K/CU MM 150-45 0 MEAN PLATELET VOLUME (BEAKER) (test code = 754) 11.4 fL 9.4-12.3 NUCLEATED RED BLOOD CELLS (BEAKER) (test code = 0 /100 WBC 0-0 413) NEUTROPHILS RELATIVE PERCENT (BEAKER) (test code 92 % = 429) LYMPHOCYTES RELATIVE PERCENT (BEAKER) (test code 3 % = 430) MONOCYTES RELATIVE PERCENT (BEAKER) (test code = 4 % 431) EOSINOPHILS RELATIVE PERCENT (BEAKER) (test code 0 % = 432) BASOPHILS RELATIVE PERCENT (BEAKER) (test code = 0 % 437) NEUTROPHILS ABSOLUTE COUNT (BEAKER) (test code = 8.84 K/ L 1.56-6.13 670) LYMPHOCYTES ABSOLUTE COUNT (BEAKER) (test code = 0.33 K/ L 1.18-3.74 414) MONOCYTES ABSOLUTE COUNT (BEAKER) (test code = 0.38 K/ L 0 .24-0.36 415) EOSINOPHILS ABSOLUTE COUNT (BEAKER) (test code = 0.00 K/ L 0.04-0.36 416) BASOPHILS ABSOLUTE COUNT (BEAKER) (test code = 0.02 K/ L 0 .01-0.08 417) IMMATURE GRANULOCYTES-RELATIVE PERCENT (BEAKER) 0 % 0-1 (test code = 2801) BLOOD GAS, [id number] 15:12:00 Test Item Value Reference Range Comments PH ARTERIAL (BEAKER) (test code = 383) 7.28 7.35-7.45 PCO2 ARTERIAL (BEAKER) (test code = 384) 54 mmHg 35-45 PO2 ARTERIAL (BEAKER) (test code = 385) 166 mmHg 80-90 O2 SATURATION ARTERIAL (BEAKER) (test code = 98.9 % 96. 0-97.0 386) HCO3 ARTERIAL (BEAKER) (test code = 388) 25 mmol/L 21-29 BASE EXCESS ARTERIAL (BEAKER) (test code = 387) -1.9 mmol/L -2.0-3.0 PATIENT TEMPERATURE (BEAKER) (test code = 1818) 37.0 C FIO2 (BEAKER) (test code = 1819) 100.0 % POCT-GLUCOSE [id number] 14:47:00 Test Item Value Reference Range Comments POC-GLUCOSE METER (BEAKER) 116 mg/dL 70-110 : Not ified RN/MD: TESTED AT (test code = 1538) [facility] [address], [address]: [employer] Officer/ Keno Writer ID = [id number] for GUY BANSAL BLOOD GAS, [id number] 14:39:00 Test Item Value Reference Range Comments PH ARTERIAL (BEAKER) (test code = 383) 7.27 7.35-7.45 PCO2 ARTERIAL (BEAKER) (test code = 384) 49 mmHg 35-45 PO2 ARTERIAL (BEAKER) (test code = 385) 206 mmHg 80-90 O2 SATURATION ARTERIAL (BEAKER) (test code = 99.3 % 96. 0-97.0 386) HCO3 ARTERIAL (BEAKER) (test code = 388) 22 mmol/L 21-29 BASE EXCESS ARTERIAL (BEAKER) (test code = 387) -4.9 mmol/L -2.0-3.0 PATIENT TEMPERATURE (BEAKER) (test code = 1818) 35.5 C FIO2 (BEAKER) (test code = 1819) 40.0 % CBC W/PLT COUNT & AUTO [id number] 14:20:00 Test Item Value Reference Range Comments WHITE BLOOD CELL COUNT (BEAKER) (test code = 11.3 K/ L 3.5 -10.5 775) RED BLOOD CELL COUNT (BEAKER) (test code = 761) 2.60 M/ L 3.93-5.22 HEMOGLOBIN (BEAKER) (test code = 410) 8.3 GM/DL 11.2-15.7 HEMATOCRIT (BEAKER) (test code = 411) 25.1 % 34.1-44.9 MEAN CORPUSCULAR VOLUME (BEAKER) (test code = 96.5 fL 79 .4-94.8 753) MEAN CORPUSCULAR HEMOGLOBIN (BEAKER) (test code 31.9 pg 25.6-32.2 = 751) MEAN CORPUSCULAR HEMOGLOBIN CONC (BEAKER) (test 33.1 GM/DL 32.2-35.5 code = 752) RED CELL DISTRIBUTION WIDTH (BEAKER) (test code 12.4 % 11.7-14.4 = 412) PLATELET COUNT (BEAKER) (test code = 756) 156 K/CU MM 150-45 0 MEAN PLATELET VOLUME (BEAKER) (test code = 754) 10.5 fL 9.4-12.3 NUCLEATED RED BLOOD CELLS (BEAKER) (test code = 0 /100 WBC 0-0 413) NEUTROPHILS RELATIVE PERCENT (BEAKER) (test code 92 % = 429) LYMPHOCYTES RELATIVE PERCENT (BEAKER) (test code 4 % = 430) MONOCYTES RELATIVE PERCENT (BEAKER) (test code = 3 % 431) EOSINOPHILS RELATIVE PERCENT (BEAKER) (test code 0 % = 432) BASOPHILS RELATIVE PERCENT (BEAKER) (test code = 0 % 437) NEUTROPHILS ABSOLUTE COUNT (BEAKER) (test code = 10.35 K/ L 1.56-6.13 670) LYMPHOCYTES ABSOLUTE COUNT (BEAKER) (test code = 0.48 K/ L 1.18-3.74 414) MONOCYTES ABSOLUTE COUNT (BEAKER) (test code = 0.37 K/ L 0 .24-0.36 415) EOSINOPHILS ABSOLUTE COUNT (BEAKER) (test code = 0.01 K/ L 0.04-0.36 416) BASOPHILS ABSOLUTE COUNT (BEAKER) (test code = 0.02 K/ L 0 .01-0.08 417) IMMATURE GRANULOCYTES-RELATIVE PERCENT (BEAKER) 0 % 0-1 (test code = 2801) BLOOD GAS, [id number] 12:07:00 Test Item Value Reference Range Comments PH ARTERIAL (BEAKER) (test code = 383) 7.33 7.35-7.45 PCO2 ARTERIAL (BEAKER) (test code = 384) 45 mmHg 35-45 PO2 ARTERIAL (BEAKER) (test code = 385) 197 mmHg 80-90 O2 SATURATION ARTERIAL (BEAKER) (test code = 99.3 % 96. 0-97.0 386) HCO3 ARTERIAL (BEAKER) (test code = 388) 24 mmol/L 21-29 BASE EXCESS ARTERIAL (BEAKER) (test code = 387) -2.4 mmol/L -2.0-3.0 PATIENT TEMPERATURE (BEAKER) (test code = 1818) 37.0 C FIO2 (BEAKER) (test code = 1819) 50.0 % POTASSIUM-STAT [id number] 12:07:00 Test Item Value Reference Range Comments POTASSIUM (BEAKER) (test code = 379) 3.2 meq/L 3.6-5.5 GLUCOSE-STAT [id number] 12:07:00 Test Item Value Reference Range Comments GLUCOSE RANDOM (BEAKER) (test code = 652) 148 mg/dL 70-110 HGB/HCT (H&H) - STAT [id number] 12:07:00 Test Item Value Reference Range Comments HEMOGLOBIN (BEAKER) (test code = 410) 10.1 g/dL 12.0-15.0 HEMATOCRIT (BEAKER) (test code = 411) 30.0 % 36.0-45.0 PH, [id number] 12:07:00 Test Item Value Reference Range Comments PH ARTERIAL (BEAKER) (test code = 383) 7.33 7.35-7.45 SODIUM NA-STAT [id number] 12:06:00 Test Item Value Reference Range Comments SODIUM (BEAKER) (test code = 381) 143 meq/L 135-148 CALCIUM, [id number] 11:40:00 Test Item Value Reference Range Comments CALCIUM IONIZED (BEAKER) (test code = 698) 1.10 mmol/L 1.12- 1.27 PH, BLOOD (BEAKER) (test code = 1810) 7.19 CALCIUM, [id number] 11:37:00 Test Item Value Reference Range Comments CALCIUM IONIZED (BEAKER) (test code = 698) 1.10 mmol/L 1.12- 1.27 PH, BLOOD (BEAKER) (test code = 1810) 7.19 BLOOD GAS, [id number] 11:14:00 Test Item Value Reference Range Comments PH ARTERIAL (BEAKER) (test code = 383) 7.19 7.35-7.45 PCO2 ARTERIAL (BEAKER) (test code = 384) 60 mmHg 35-45 PO2 ARTERIAL (BEAKER) (test code = 385) 229 mmHg 80-90 O2 SATURATION ARTERIAL (BEAKER) (test code = 99.3 % 96. 0-97.0 386) HCO3 ARTERIAL (BEAKER) (test code = 388) 23 mmol/L 21-29 BASE EXCESS ARTERIAL (BEAKER) (test code = 387) -6.1 mmol/L -2.0-3.0 PATIENT TEMPERATURE (BEAKER) (test code = 1818) 37.0 C FIO2 (BEAKER) (test code = 1819) 50.0 % PH, [id number] 11:13:00 Test Item Value Reference Range Comments PH ARTERIAL (BEAKER) (test code = 383) 7.19 7.35-7.45 POTASSIUM-STAT [id number] 11:12:00 Test Item Value Reference Range Comments POTASSIUM (BEAKER) (test code = 379) 3.3 meq/L 3.6-5.5 GLUCOSE-STAT [id number] 11:12:00 Test Item Value Reference Range Comments GLUCOSE RANDOM (BEAKER) (test code = 652) 130 mg/dL 70-110 HGB/HCT (H&H) - STAT [id number] 11:12:00 Test Item Value Reference Range Comments HEMOGLOBIN (BEAKER) (test code = 410) 10.9 g/dL 12.0-15.0 HEMATOCRIT (BEAKER) (test code = 411) 32.0 % 36.0-45.0 SODIUM NA-STAT [id number] 11:05:00 Test Item Value Reference Range Comments SODIUM (BEAKER) (test code = 381) 140 meq/L 135-148 TISSUE [id number] 15:12:00Surgical Pathology Report Case: [id number] Authorizing Provider: Darwin Miles Collected: 05/07/2019 1442 MD Michelle Ordering Location: [facility] Endoscopy Received: 05/08/2019 0821 Services Pathologist: Juanita Norman MD Specimen: Large Intestine, Colon - Left/Descending, biopsy of mass COLON, LEFT/DESCENDING, BIOPSIES OF MASS- COLON MUCOSA WITH LOW GRADE DYSPLASIA- see comment Signing Pathologist Dire ct Phone Line: [phone] signed by Juanita Norman MD on 05/12/2019 at 3:12 PMNo high grade dysplasia or carcinoma is seen in the sampled tissue. 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 Considering this information, the biopsy could be superficial and focal sampling of a tubular adenoma with an invasive carcinoma or could just be a large tubular adenoma. [id number] and postop diagnosis: Adenomatous polyp of sigmoid colon Per endoscopy report dated 05/07/2019: Likely malignant partially obstructing tumor in the sigmoid colonA. Large intestine, colon, left/descending biopsy of massReceived in formalin labeled with the patient's name, accession number and "large intestine, colon - left/descending" are three horan-pink tissues ranging from 0.2 to 0.4 cm in greatest dimension. The specimen is submittedin toto following filtration in cassette A1. KM/plMicroscopic examination is performed and the findings are incorporated in the diagnostic line.CARCINOEMBRYONIC ANTIGEN (CEA) 2019-05-07 19:31:00 Test Item Value Reference Range Comments CARCINOEMBRYONIC ANTIGEN (BEAKER) (test code = 3.6 ng/mL 0 .0-5.0 685) Ammunition Officer ID - JORDYN [id number] 17:04:00 Test Item Value Reference Range Comments MAGNESIUM (BEAKER) (test code = 627) 1.9 mg/dL 1.6-2.6 Ammunition Officer ID - BASIC METABOLIC [id number] 17:04:00 Test Item Value Reference Range Comments SODIUM (BEAKER) (test 147 meq/L 136-145 code = 381) POTASSIUM (BEAKER) (test 3.7 meq/L 3.5-5.1 code = 379) CHLORIDE (BEAKER) (test 109 meq/L 98-107 code = 382) CO2 (BEAKER) (test code = 25 meq/L 22-29 355) BLOOD UREA NITROGEN 31 mg/dL 7-21 (BEAKER) (test code = 354) CREATININE (BEAKER) (test 1.05 mg/dL 0.57-1.25 code = 358) GLUCOSE RANDOM (BEAKER) 84 mg/dL 70-105 (test code = 652) CALCIUM (BEAKER) (test 9.1 mg/dL 8.4-10.2 code = 697) EGFR (BEAKER) (test code 50 mL/min/1.73 sq m EST IMATED GFR IS NOT = 1092) ACCURATE CREA TININE CLEARANCE IN PRE DICTING GLOMERULAR FILTR ATION RATE. ESTIMATED GFR IS NOT APPLICABLE F OR DIALYSIS PATIENT S. Ammunition Officer ID - BSHEPATIC FUNCTION [id number] 17:04:00 Test Item Value Reference Range Comments TOTAL PROTEIN (BEAKER) (test code = 770) 5.7 gm/dL 6.0-8.3 ALBUMIN (BEAKER) (test code = 1145) 3.6 g/dL 3.5-5.0 BILIRUBIN TOTAL (BEAKER) (test code = 377) 0.5 mg/dL 0.2-1 .2 BILIRUBIN DIRECT (BEAKER) (test code = 706) 0.2 mg/dL 0.1- 0.5 ALKALINE PHOSPHATASE (BEAKER) (test code = 346) 73 U/L 40-150 AST (SGOT) (BEAKER) (test code = 353) 14 U/L 5-34 ALT (SGPT) (BEAKER) (test code = 347) 11 U/L 6-55 Ammunition Officer ID - BSPROTHROMBIN [id number] 16:56:00 Test Item Value Reference Range Comments PROTIME (BEAKER) (test code = 759) 13.9 seconds 11.9-14.2 INR (BEAKER) (test code = 370) 1.1 <=5.9 Effective 08/27/2018: PT Reference Range ChangeNew: 11.9-14.2 Previous: 11.7- 14.7RECOMMENDED COUMADIN/WARFARIN INR THERAPY RANGESSTANDARD DOSE: 2.0-3.0 Includes: PROPHYLAXIS for venous thrombosis, systemic embolization; TREATMENT for venous thrombosis and/or pulmonary embolus.HIGH RISK: Target INR is2.5-3.5 for patients wiht mechanical heart valves.[id number] 16:56:00 Test Item Value Reference Range Comments PARTIAL THROMBOPLASTIN TIME (BEAKER) (test code 26.1 seconds 22.5-36.0 = 760) CBC W/PLT COUNT & AUTO [id number] 16:43:00 Test Item Value Reference Range Comments WHITE BLOOD CELL COUNT (BEAKER) (test code = 7.8 K/ L 3.5 -10.5 775) RED BLOOD CELL COUNT (BEAKER) (test code = 761) 3.61 M/ L 3.93-5.22 HEMOGLOBIN (BEAKER) (test code = 410) 11.2 GM/DL 11.2-15.7 HEMATOCRIT (BEAKER) (test code = 411) 33.5 % 34.1-44.9 MEAN CORPUSCULAR VOLUME (BEAKER) (test code = 92.8 fL 79 .4-94.8 753) MEAN CORPUSCULAR HEMOGLOBIN (BEAKER) (test code 31.0 pg 25.6-32.2 = 751) MEAN CORPUSCULAR HEMOGLOBIN CONC (BEAKER) (test 33.4 GM/DL 32.2-35.5 code = 752) RED CELL DISTRIBUTION WIDTH (BEAKER) (test code 12.1 % 11.7-14.4 = 412) PLATELET COUNT (BEAKER) (test code = 756) 212 K/CU MM 150-45 0 MEAN PLATELET VOLUME (BEAKER) (test code = 754) 11.7 fL 9.4-12.3 NUCLEATED RED BLOOD CELLS (BEAKER) (test code = 0 /100 WBC 0-0 413) NEUTROPHILS RELATIVE PERCENT (BEAKER) (test code 77 % = 429) LYMPHOCYTES RELATIVE PERCENT (BEAKER) (test code 16 % = 430) MONOCYTES RELATIVE PERCENT (BEAKER) (test code = 6 % 431) EOSINOPHILS RELATIVE PERCENT (BEAKER) (test code 0 % = 432) BASOPHILS RELATIVE PERCENT (BEAKER) (test code = 1 % 437) NEUTROPHILS ABSOLUTE COUNT (BEAKER) (test code = 6.01 K/ L 1.56-6.13 670) LYMPHOCYTES ABSOLUTE COUNT (BEAKER) (test code = 1.24 K/ L 1.18-3.74 414) MONOCYTES ABSOLUTE COUNT (BEAKER) (test code = 0.46 K/ L 0 .24-0.36 415) EOSINOPHILS ABSOLUTE COUNT (BEAKER) (test code = 0.03 K/ L 0.04-0.36 416) BASOPHILS ABSOLUTE COUNT (BEAKER) (test code = 0.04 K/ L 0 .01-0.08 417) IMMATURE GRANULOCYTES-RELATIVE PERCENT (BEAKER) 1 % 0-1 (test code = 2801) CBC W/PLT COUNT & AUTO [id number] 14:26:00 Test Item Value Reference Range Comments WHITE BLOOD CELL COUNT (BEAKER) (test code = 9.0 K/ L 3.5 -10.5 775) RED BLOOD CELL COUNT (BEAKER) (test code = 761) 4.23 M/ L 3.93-5.22 HEMOGLOBIN (BEAKER) (test code = 410) 13.3 GM/DL 11.2-15.7 HEMATOCRIT (BEAKER) (test code = 411) 40.1 % 34.1-44.9 MEAN CORPUSCULAR VOLUME (BEAKER) (test code = 94.8 fL 79 .4-94.8 753) MEAN CORPUSCULAR HEMOGLOBIN (BEAKER) (test code 31.4 pg 25.6-32.2 = 751) MEAN CORPUSCULAR HEMOGLOBIN CONC (BEAKER) (test 33.2 GM/DL 32.2-35.5 code = 752) RED CELL DISTRIBUTION WIDTH (BEAKER) (test code 12.3 % 11.7-14.4 = 412) PLATELET COUNT (BEAKER) (test code = 756) 294 K/CU MM 150-45 0 MEAN PLATELET VOLUME (BEAKER) (test code = 754) 11.4 fL 9.4-12.3 NUCLEATED RED BLOOD CELLS (BEAKER) (test code = 0 /100 WBC 0-0 413) NEUTROPHILS RELATIVE PERCENT (BEAKER) (test code 72 % = 429) LYMPHOCYTES RELATIVE PERCENT (BEAKER) (test code 19 % = 430) MONOCYTES RELATIVE PERCENT (BEAKER) (test code = 7 % 431) EOSINOPHILS RELATIVE PERCENT (BEAKER) (test code 1 % = 432) BASOPHILS RELATIVE PERCENT (BEAKER) (test code = 1 % 437) NEUTROPHILS ABSOLUTE COUNT (BEAKER) (test code = 6.53 K/ L 1.56-6.13 670) LYMPHOCYTES ABSOLUTE COUNT (BEAKER) (test code = 1.70 K/ L 1.18-3.74 414) MONOCYTES ABSOLUTE COUNT (BEAKER) (test code = 0.65 K/ L 0 .24-0.36 415) EOSINOPHILS ABSOLUTE COUNT (BEAKER) (test code = 0.05 K/ L 0.04-0.36 416) BASOPHILS ABSOLUTE COUNT (BEAKER) (test code = 0.05 K/ L 0 .01-0.08 417) IMMATURE GRANULOCYTES-RELATIVE PERCENT (BEAKER) 0 % 0-1 (test code = 2801) HEPATIC FUNCTION [id number] 11:28:00 Test Item Value Reference Range Comments TOTAL PROTEIN (BEAKER) (test code = 770) 7.0 gm/dL 6.0-8.3 ALBUMIN (BEAKER) (test code = 1145) 4.1 g/dL 3.5-5.0 BILIRUBIN TOTAL (BEAKER) (test code = 377) 0.7 mg/dL 0.2-1 .2 BILIRUBIN DIRECT (BEAKER) (test code = 706) 0.2 mg/dL 0.1- 0.5 ALKALINE PHOSPHATASE (BEAKER) (test code = 346) 86 U/L 40-150 AST (SGOT) (BEAKER) (test code = 353) 21 U/L 5-34 ALT (SGPT) (BEAKER) (test code = 347) 13 U/L 6-55 [id number] 11:28:00 Test Item Value Reference Range Comments LIPASE (BEAKER) (test code = 749) 153 U/L 8-78 BASIC METABOLIC [id number] 11:27:00 Test Item Value Reference Range Comments SODIUM (BEAKER) (test 142 meq/L 136-145 code = 381) POTASSIUM (BEAKER) (test 4.6 meq/L 3.5-5.1 code = 379) CHLORIDE (BEAKER) (test 104 meq/L 98-107 code = 382) CO2 (BEAKER) (test code 28 meq/L 22-29 = 355) BLOOD UREA NITROGEN 27 mg/dL 7-21 (BEAKER) (test code = 354) CREATININE (BEAKER) 1.10 mg/dL 0.57-1.25 (test code = 358) GLUCOSE RANDOM (BEAKER) 109 mg/dL 70-105 (test code = 652) CALCIUM (BEAKER) (test 10.1 mg/dL 8.4-10.2 code = 697) EGFR (BEAKER) (test code 47 mL/min/1.73 sq m INS UFFICIENT CLINICAL DATA = 1092) TO CALCULATE EST IMATED GFR. [id number] 11:19:00 Test Item Value Reference Range Comments PROTIME (BEAKER) (test code = 759) 12.4 seconds 11.9-14.2 INR (BEAKER) (test code = 370) 1.0 <=5.9 PARTIAL THROMBOPLASTIN TIME (BEAKER) (test code 27.3 seconds 22.5-36.0 = 760) Effective 08/27/2018: PT Reference Range ChangeNew: 11.9-14.2 Previous: 11.7- 14.7RECOMMENDED COUMADIN/WARFARIN INR THERAPY RANGESSTANDARD DOSE: 2.0-3.0 Includes: PROPHYLAXIS for venous thrombosis, systemic embolization; TREATMENT for venous thrombosis and/or pulmonary embolus.HIGH RISK: Target INR is2.5-3.5 for patients wiht mechanical heart valves.RAD, ABDOMEN SERIES W/ UPRIGHT PA [id number] 10:43:00Reason for exam:->ABDOMINAL PAINReason for exam:- >RECTAL BLEEDINGFINAL REPORT RAD, ABDOMEN SERIES W/ UPRIGHT [...] lumbar spine. IMPRESSION: Nonobstructed bowel gas pattern. Unr emarkable frontal view of the chest. Signed: JR Pan Robert MDReport Verified Date/Time: 03/30/2019 10:43:48 Reading Location: [facility] Radiology Reading Room
--- OUTSIDE RECORDS SUMMARY | 2019-07-09 18:40 | XMS REPORT | Summary of Care ---
:1935 Author Organization [facility] [place] [address] Care Team Providers Name Role Phone Unavailable Primary Care Provider Unavailable Reason for Visit Reason Comments Post-op Follow-up Encounter Details Date Type Department Care Team Description 07/01/2019 Office Visit [facility] Mohsen Johnston MD Post-op Follow-up [id number] [place] [address] [address] [facility] [phone] 7[address] Floor, [address] [place] [address] Allergies No Known Allergiesdocumented as of this encounter (statuses as of 07/07/2019) Medications Medication Sig Dispensed Refills Start Date End Date Status Na Sulfate-K Sulfate-Mg [SUPREP] Take as 1 Bottle 0 9 Active Sulf (SUPREP BOWEL PREP directed. KIT) 17.5-3.13-1.6 GM/177ML SOLN losartan (COZAAR) 50 MG Take 50 mg by 0 Active tablet mouth daily. amlodipine-atorvastatat Take 1 Tab by 0 Active in (CADUET) 2.5-10 MG mouth daily. per tablet pantoprazole (PROTONIX) Take 40 mg by 0 Active 40 MG tablet mouth daily. Acetaminophen (TYLENOL Take by mouth. 0 Active 8 HOUR OR) ciprofloxacin (CIPRO) TAKE 1 TABLET BY 0 04/03/2019 Active 500 MG tablet MOUTH TWICE DAILY FOR 10 DAYS metronidazole (FLAGYL) Take 500 mg by 0 Active 500 MG tablet mouth 3 times daily. neomycin (MYCIFRADIN) Take 2 tablets by 6 Tab 0 05/12/2019 Active 500 MG mouth at 1:00PM, tabletIndications: 4:00 PM, and 7:00 Malignant neoplasm of PM the day prior sigmoid colon (HCCode) to your surgery metronidazole (FLAGYL) Take 1 tablet by 3 Tab 0 05/12/2019 Active 500 MG mouth at 1:00 PM, tabletIndications: 4:00 PM, and 7:00 Malignant neoplasm of PM the day prior sigmoid colon (HCCode) to your surgery Na Sulfate-K Sulfate-Mg Take as directed 354 mL 1 0 Active Sulf (SUPREP BOWEL PREP KIT) 17.5-3.13-1.6 GM/177ML SOLNIndications: Malignant neoplasm of sigmoid colon (HCCode) documented as of this encounter (statuses as of 07/07/2019) Active Problems Not on filedocumented as of this encounter (statuses as of 07/07/2019) Social History Tobacco Use Types Packs/Day Years Used Date Never Smoker Smokeless Tobacco: Never Used Alcohol Use Drinks/Week oz/Week Comments Never Alcohol Habits Answer Date Recorded How often do you have a drink containing alcohol? Never 03/18/2019 How many drinks containing alcohol do you have on a typical Not asked day when you are drinking? How often do you have six or more drinks on one occasion? No t asked Sex Assigned at Date Recorded Not on file Job Start Date Occupation Industry Not on file Not on file Not on file Travel History Travel Start Travel End No recent travel history available. documented as of this encounter Last Filed Vital Signs Vital Sign Reading Time Taken Comments Blood Pressure 116/63 07/01/2019 2:26 PM CDT Pulse 74 07/01/2019 2:26 PM CDT Temperature - - Respiratory Rate 16 07/01/2019 2:26 PM CDT Oxygen Saturation - - Inhaled Oxygen Concentration - - Weight - - Height - - Body Mass Index - - documented in this encounter Progress Notes Olena Mcpherson PA - 07/01/2019 9:15 AM CDT Department of Surgery Division of Colorectal Surgery Chief Complaint Patient presents with Post-op Follow-up Kevin Andujar is a 84 y.o. Kevin Andujar is a 84 y.o. female with a PMH significant for anxiety, HTN, diverticulitis, and GERD presents to [facility] for cancer in sigmoid colon. She is s/p robotic low anterior resection with colo-rectal anastomosis and en bloc left oophorectomy on 05/25/19. Pathology shows TVA (w/o HGD or malignancy), diverticular disease, marginsnegative, and 0/24 positive for malignancy. Of note, patient underwent a CTAP in the hospital due topersistent leukocytosis showed a new large peripancreatic fluid collection, underwent IR drainage 06/10 with positive fluid amylase (>13K) c/w pancreas leak. She is doing well post operatively. For the past 48-72 hours her drain output has ranged from 30-75mL. She denies any abdominal pain. She states she is eating and drinking minimally but is able to tolerate it without nausea and vomiting. She is also on TPN. She admits to constipation and is taking miralax. She denies fever and chills. She is working with PT daily. Vitals: 07/01/19 1426 BP: 116/63 Pulse: 74 Resp: 16 General: well developed, well nourished, no acute distress, laying on stretcher Neuro: AAO x 3, no focal deficits noted HEENT: NCAT, EOMI, no scleral icterus, MMM Neck: supple, normal ROM Chest: nonlabored respirations on room air, clear to auscultation bilaterally CV: RRR Abdomen: soft, NT, ND, drain in place, well healed laparoscopic and pfannenstiel incision site - no erythema, induration, and discharge : terry in place Ext: no edema or deformity, PICC line in RUQ Skin: warm and dry; no rashes, nodules, or pallor noted Pathology: DIAGNOSIS A. COLON, SIGMOID, ROBOTIC-ASSISTED LAPAROSCOPIC LOW ANTERIOR RESECTION: TUBULOVILLOUS ADENOMA, 4 CM, COMPLETELY EXCISED. NEGATIVE FOR HIGH GRADE DYSPLASIA OR INVASIVE CARCINOMA. DIVERTICULAR DISEASE WITH SEROSAL ADHESIONS TO ADNEXA AND OVARY. SURGICAL MARGINS ARE UNINVOLVED BY TUBULOVILLOUS ADENOMA. TWENTY FOUR BENIGN LYMPH NODES (0/24) B. COLON, DISTAL ANASTOMOTIC RING: CONGESTED BENIGN COLONIC TISSUE. Assessment/Plan: Kevin Andujar is a 84 y.o. female with a PMH significant for anxiety, HTN, diverticulitis, and GERD presents to [facility] for evaluation and management of colon cancer. Patient initially underwent a colonoscopy and was found to have a sigmoid polyp that was unable to be removed due to tortuous colon and location in diverticulosis area. Biopsy showed TVA. She was referred to Dr. Miles for EMR which could not be completed due to the likelihood of malignancy. Previous Work Up: - Colonoscopy (05/07/19) - moderate diverticulosis in sigmoid colon and a partially obstructing tumor in the sigmoid colon - biopsied, not tattooed. Pathology showed colonic mucosa with LGD (comment: thebiopsy could be superficial and focal sampling of a tubular adenoma with an invasive carcinoma or could just be a large tubular adenoma) - CEA (05/07/19) - 3.8 - CT AP (05/11/19) - no mets on imaging (we do not have the final read of scan) - CT Chest (05/22/19) - no metastasis seen - Robotic low anterior resection with colo-rectal anastomosis and en bloc left oophorectomy on 05/25/19. Pathology shows TVA (w/o HGD or malignancy), diverticular disease, margins negative, and 0/24 positive for malignancy. * Pathology was reviewed with the patient. * Keep the drain in place until output is 10- 20 mL / day. * Continue TPN until PO intake is adequate. * She will return to clinic in 1 week for possible drain removal. In the meantime, she may call the clinic with any questions or concerns. Olena Mcpherson PA-C I agree with the documentation and note by the physician restaurant assistant manager. Mohsen Oro M.D. Gaming Floor Supervisor and Chief of Colorectal Surgery [facility] documented in this encounter Plan of Treatment Health Maintenance Due Date Last Done Comments TETANUS SHOT (ADULT) 1950 MEDICARE AWV (Initial) 04/01/1999 FALL SCREEN 1999 OSTEOPOROSIS SCREENING 1999 PNEUMOVAX >=65 (PPSV23) 1999 PREVNAR >= 65 (PCV13) 1999 FLU VACCINE > 6 MONTHS 10/31/2019 documented as of this encounter Results Not on filedocumented in this encounter Visit Diagnoses Diagnosis Adenomatous polyp of sigmoid colon - Danica delgado documented in this encounter Insurance Payer Benefit Plan / Subscriber ID Effective Dates Phone Addre ss Type Group MEDICARE MEDICARE PART A xxxxxxxxxxx 1999-Present [address] Medicare [place] [address] documented as of this encounter
--- OUTSIDE RECORDS SUMMARY | 2019-07-09 18:40 | XMS REPORT | Summary of Care ---
:1935 Author Organization [facility] [place] [address] Care Team Providers Name Role Phone Unavailable Primary Care Provider Unavailable Reason for Visit Reason Comments Medical Concern Encounter Details Date Type Department Care Team Description 07/07/2019 Office Visit [facility], Arely Wilson edical Concern Medicine Urology [address] [place] [address] 10th Floor, [address], [place] [address] [place], [place] [id number] Allergies No Known Allergiesdocumented as of this [...] Sign Reading Time Taken Comments Blood Pressure 126/72 07/07/2019 10:44 AM CDT Pulse 85 07/07/2019 10:44 AM CDT Temperature 36.1 C (97 F) 07/07/2019 10:44 AM CDT Respiratory Rate - - Oxygen Saturation - - Inhaled Oxygen Concentration - - Weight - - Height - - Body Mass Index - - documented in this encounter Progress Notes Jonathan White MA - 07/07/2019 11:10 AM CDTReview of Systems Constitutional: Positive for activity change, appetite change, chills, fatigue and fever. Eyes: Negative. Respiratory: Negative. Cardiovascular: Negative. Gastrointestinal: Positive for anal bleeding, blood in stool and diarrhea. Endocrine: Negative. Genitourinary: Positive for difficulty urinating and urgency. Musculoskeletal: Negative. Allergic/Immunologic: Negative. Neurological: Negative. Rishi Alicia MD - 07/07/2019 10:00 AM CDT Referring Physician Self Referral No address on file Patient Name: Kevin Andujar :1935 [facility] ID#:[id number] Ms. Andujar is a 84 y.o. year old female who present to me for evaluation. Pt hospitalized at [facility] 05/2019 where she underwent resection of rectosigmoid mass. Postop patient had voiding issues andwas sent to [facility] for rehab. Catheter last changed one week ago. Pt with h/o recurrent UTI's. Has had vaginal mesh surgery in past. Past Medical History: Diagnosis Date Allergies Anxiety Arthritis Cataract Diverticulitis GERD (gastroesophageal reflux disease) Hypertension Osteoporosis Recurrent UTI Varicose vein of leg Past Surgical History: Procedure Laterality Date HX APPENDECTOMY HX BLADDER SUSPENSION 2009 HX HYSTERECTOMY Medications Outpatient Medications Prior to Visit Medication Sig Dispense Refill Acetaminophen (TYLENOL 8 HOUR OR) Take by mouth. amlodipine-atorvastatatin Take 1 Tab by mouth daily. ciprofloxacin TAKE 1 TABLET BY MOUTH TWICE DAILY FOR 10 DAYS losartan Take 50 mg by mouth daily. metronidazole Take 500 mg by mouth 3 times daily. metronidazole Take 1 tablet by mouth at 1:00 PM, 4:00 PM, and 7:00 PM the day prior to your surgery 3 Tab 0 Na Sulfate-K Sulfate-Mg Sulf Take as directed 354 mL 1 Na Sulfate-K Sulfate-Mg Sulf [SUPREP] Take as directed. 1 Bottle 0 neomycin Take 2 tablets by mouth at 1:00PM, 4:00 PM, and 7:00 PM the day prior to your surgery 6Tab 0 pantoprazole Take 40 mg by mouth daily. No facility-administered medications prior to visit. Current Outpatient Medications: Acetaminophen (TYLENOL 8 HOUR OR), Take by mouth., Disp: , Rfl: amlodipine-atorvastatatin (CADUET) 2.5-10 MG per tablet, Take 1 Tab by mouth daily., Disp: , Rfl: ciprofloxacin (CIPRO) 500 MG tablet, TAKE 1 TABLET BY MOUTH TWICE DAILY FOR 10 DAYS, Disp: , Rfl: losartan (COZAAR) 50 MG tablet, Take 50 mg by mouth daily., Disp: , Rfl: metronidazole (FLAGYL) 500 MG tablet, Take 500 mg by mouth 3 times daily., Disp: , Rfl: metronidazole (FLAGYL) 500 MG tablet, Take 1 tablet by mouth at 1:00 PM, 4:00 PM, and 7:00 PM the day prior to your surgery, Disp: 3 Tab, Rfl: 0 Na Sulfate-K Sulfate-Mg Sulf (SUPREP BOWEL PREP KIT) 17.5-3.13-1.6 GM/177ML SOLN, Take as directed, Disp: 354 mL, Rfl: 1 Na Sulfate-K Sulfate-Mg Sulf (SUPREP BOWEL PREP KIT) 17.5-3.13-1.6 GM/177ML SOLN, [SUPREP] Takeas directed., Disp: 1 Bottle, Rfl: 0 neomycin (MYCIFRADIN) 500 MG tablet, Take 2 tablets by mouth at 1:00PM, 4:00 PM, and 7:00 PM the day prior to your surgery, Disp: 6 Tab, Rfl: 0 pantoprazole (PROTONIX) 40 MG tablet, Take 40 mg by mouth daily., Disp: , Rfl: Social History Socioeconomic History Marital status: Spouse name: Not on file Number of children: Not on file Years of education: Not on file Highest education level: Not on file Occupational History Not on file Social Needs Financial resource strain: Not on file Food insecurity: Worry: Not on file Inability: Not on file Transportation needs: Medical: Not on file Non-medical: Not on file Tobacco Use Smoking status: Never Smoker Smokeless tobacco: Never Used Substance and Sexual Activity Alcohol use: Never Frequency: Never Drug use: Never Sexual activity: Not on file Lifestyle Physical activity: Days per week: Not on file Minutes per session: Not on file Stress: Not on file Relationships Social connections: Talks on phone: Not on file Gets together: Not on file Attends alevism service: Not on file Active member of club or organization: Not on file Attends meetings of clubs or organizations: Not on file Relationship status: Not on file Intimate partner violence: Fear of current or ex partner: Not on file Emotionally abused: Not on file Physically abused: Not on file Forced sexual activity: Not on file Other Topics Concerns: Not on file Social History Narrative Not on file family history includes Nephrolithiasis in her father. No Known Allergies Review of Systems: Constitutional: Positive for activity change, appetite change, chills, fatigue and fever. Eyes: Negative. Respiratory: Negative. Cardiovascular: Negative. Gastrointestinal: Positive for anal bleeding, blood in stool and diarrhea. Endocrine: Negative. Genitourinary: Positive for difficulty urinating and urgency. Musculoskeletal: Negative. Allergic/Immunologic: Negative. Neurological: Negative. Physical Exam: Vitals: see in note above GENERAL: Well developed, well nourished, in no acute distress HEAD: Normocephalic and atraumatic CHEST Regular respiratory rate CV Regular rate and rhythm ABDOMEN: Soft and non-tender without masses, BACK: No CVAT PELVIC EXAM Vulva: Normal appearance, normal hair distribution, no lesions or masses. Urethra: Normal, no masses, non-tender, no discharge, indwelling terry catheter draining clear yellow urine. Bladder: Normal, no masses, non-tender, non-distended. Vagina: Vaginal atrophy, ruggated, physiologic discharge, no lesions, no masses visualized althoughdifficult to perform exam with patient in stretcher and large fecal soilage. EXTREMITIES: No clubbing, cyanosis, edema, or deformity SKIN: Intact without lesions or rashes NEURO: DUBOSE well. Patient alert and oriented x3. PSYCH: Alert and cooperative; normal mood and affect; normal attention span and concentration Most Recent Labs: Results for orders placed or performed in visit on 06/05/19 (from the past 4032 hour(s)) RESPIRATORY PATHOGEN PANEL Collection Time: 06/05/19 3:20 PM Result Value Ref Range HUMAN METAPNEUMOVIRUS Not detected Not detected, Equivocal RHINOVIRUS Not detected Not detected, Equivocal INFLUENZA A Not detected Not detected, Equivocal INFLUENZA A (NO SUBTYPE) INFLUENZA A SUBTYPE H1 INFLUENZA A SUBTYPE H3 INFLUENZA A SUBTYPE H1-2009 INFLUENZA B Not detected Not detected, Equivocal RSV Not detected Not detected, Equivocal PARAINFLUENZA 1 Not detected Not detected, Equivocal PARAINFLUENZA 2 Not detected Not detected, Equivocal PARAINFLUENZA 3 Not detected Not detected, Equivocal PARAINFLUENZA VIRUS 4 Not detected Not detected, Equivocal ADENOVIRUS Not detected Not detected, Equivocal CORONAVIRUS 229E Not detected Not detected, Equivocal CORONAVIRUS HKU1 Not detected Not detected, Equivocal CORONAVIRUS NL63 Not detected Not detected, Equivocal CORONAVIRUS OC43 Not detected Not detected, Equivocal BORDETELLA PERTUSSIS Not detected Not detected, Equivocal CHLAMYDOPHILA PNEUMONIAE Not detected Not detected, Equivocal MYCOPLASMA PNEUMONIAE Not detected Not detected, Equivocal Results for orders placed or performed in visit on 05/25/19 (from the past 4032 hour(s)) SURGICAL PATHOLOGY REPORT Collection Time: 05/25/19 11:24 AM Result Value Ref Range CASE REPORT Surgical Pathology Report Case: [id number] Authorizing Provider: Mohsen Oro MD Collected: 05/25/2019 1124 Ordering Location: [facility] PERIOPERATIVE Received: 05/25/2019 1132 SERVICES Pathologist: Edward Iverson MD Specimens: A) - Large Intestine, Colon - Rectosigmoid, Sigmoid, Upper Rectum for Show and Tell B) - Large Intestine, NOS, Distal Anastomotic Ring DIAGNOSIS A. COLON, SIGMOID, ROBOTIC-ASSISTED LAPAROSCOPIC LOW ANTERIOR RESECTION: TUBULOVILLOUS ADENOMA, 4 CM, COMPLETELY EXCISED. NEGATIVE FOR HIGH GRADE DYSPLASIA OR INVASIVE CARCINOMA. DIVERTICULAR DISEASE WITH SEROSAL ADHESIONS TO ADNEXA AND OVARY. SURGICAL MARGINS ARE UNINVOLVED BY TUBULOVILLOUS ADENOMA. TWENTY FOUR BENIGN LYMPH NODES (0/24) B. COLON, DISTAL ANASTOMOTIC RING: CONGESTED BENIGN COLONIC TISSUE. Signing Pathologist Direct Phone Line: [phone] CLINICAL HISTORY Pre and postop diagnosis: mass of colon. Procedure: Robotic laparoscopy-assisted low anterior resection. SPECIMEN SOURCE A. Large intestine, colon - rectosigmoid. Sigmoid, upper rectum; large intestine GROSS DESCRIPTION Part A is received fresh for intraoperative consultation labeled with the patient's name, accession number and "rectosigmoid colon" with the additional description "sigmoid, upper rectum for show and tell" and consists of a 29 cm long and 2.5 cm in diameter segment of colon with a 3.0 x 1.5 x 1.0 cm attached ovary and a 15.0 x 5.0 x 1.0 cm attached fat. The serosa is horan-pink per surgeon designated area abutting the attached ovary that was adhesed to the pelvic wall. Tattoo dye is present proximally and distally to the mass. On opening, a 4.0 x 2.5 cm fungating, polypoid lesion 18.5 cm from the proximal margin, 5.5 cm from the distal margin is seen, and 5.0 cm from the mesenteric margin. The distal margin includes a 5.0 cm staple line. The tumor projects 1.7 cm into the lumen of the colon. On cross sectioning, the tumor is 2.5 cm thick and does not appear to grossly penetrate through the wall into the attached fat. In sections overlying the attached ovary, th e tumor does not appear to penetrate through the colonic wall. The remaining mucosa is horan with the normal folds. Multiple lymph nodes within the attached fat, from 0.2 x 0.2 x 0.2 to 1.5 x 0.8 x 0.5 cm, are identified. The cut surface of the largest lymph node displays a nodular, hemorrhagic cut surface. Waiter/Waitress Counter sections are submitted. Multiple diverticula are identified throughout the specimen. Waiter/Waitress Counter sections are submitted. Ink code: Blue-area per surgeon adhesed to pelvic wall Section code: A1, proximal margin A2, distal margin A3-A4, mesenteric margin, yellow machado proximal, red machado distal A5, ovarian/adenxal margin A6-A7, contiguous section of lesion overlying ovary, full-thickness section A8-A9, contiguous full-thickness sections of lesion A10, full-thickness section of lesion A11, full-thickness section of lesion A12, full-thickness section of lesion A13, proximal uninvolved colon A14, distal uninvolved colon A15, represe ntative section diverticulum A16, largest lymph node quadrisected A17, two possible lymph nodes A18, three possible lymph nodes A19, five possible lymph nodes A20, six possible lymph nodes BRUNO/ew After initial microscopic review, the following additional cassettes were submitted: A21-A23, 5 lymph node candidates in each cassette. A24-A35, remainder of area of adhesions inked blue (A25-A26 contiguous sections, A27-A29 and A30-A32 contiguous mirrored sections) Part B is received in formalin labeled with the patient's name, accession number and "colon, NOS" with the additional description "distal anastomotic ring" and consists of a 0.7 cm long x 1.4 x 1.0 cm ring of large intestine. The margin is inked blue and the specimen is radially sectioned. Waiter/Waitress Counter sections are submitted in cassette B1. BRUNO/pl INTRAOPERATIVE CONSULTATION Show and tell is requested by Dr. Oro. PART A1, INTRAOPERATIVE GROSS EXAM: COLON, RECTOSIGMOID, LOW ANTERIOR SECTION: - DISTAL MARGIN GROSSLY NEGATIVE FOR TUMOR Reported by Dr. Iverson to Dr. Oro at 11:47 a.m., on May 25, 2019. MICROSCOPIC DESCRIPTION Performed. GROSS ASSESSMENT [facility], Department of Pathology, [address] [place] [id number], TECHNICAL COMPONENT [facility], Department of Pathology, [address] [place] [address], PROFESSIONAL COMPONENT [facility], Department of Pathology, [address] [place] [address], RESPIRATORY PATHOGEN PANEL Collection Time: 06/05/19 2:53 PM Result Value Ref Range HUMAN METAPNEUMOVIRUS Not detected Not detected, Equivocal RHINOVIRUS Not detected Not detected, Equivocal INFLUENZA A Not detected Not detected, Equivocal INFLUENZA A (NO SUBTYPE) INFLUENZA A SUBTYPE H1 INFLUENZA A SUBTYPE H3 INFLUENZA A SUBTYPE H1-2009 INFLUENZA B Not detected Not detected, Equivocal RSV Not detected Not detected, Equivocal PARAINFLUENZA 1 Not detected Not detected, Equivocal PARAINFLUENZA 2 Not detected Not detected, Equivocal PARAINFLUENZA 3 Not detected Not detected, Equivocal PARAINFLUENZA VIRUS 4 Not detected Not detected, Equivocal ADENOVIRUS Not detected Not detected, Equivocal CORONAVIRUS 229E Not detected Not detected, Equivocal CORONAVIRUS HKU1 Not detected Not detected, Equivocal CORONAVIRUS NL63 Not detected Not detected, Equivocal CORONAVIRUS OC43 Not detected Not detected, Equivocal BORDETELLA PERTUSSIS Not detected Not detected, Equivocal CHLAMYDOPHILA PNEUMONIAE Not detected Not detected, Equivocal MYCOPLASMA PNEUMONIAE Not detected Not detected, Equivocal Results for orders placed or performed in visit on 05/07/19 (from the past 4032 hour(s)) PATHOLOGY TISSUE Collection Time: 05/07/19 2:42 PM Result Value Ref Range CASE REPORT Surgical Pathology Report Case: [id number] Authorizing Provider: Darwin Miles Collected: 05/07/2019 144Kayode Martinez MD Ordering Location: [facility] Endoscopy Received: 05/08/2019 0821 Services Pathologist: Juanita Norman MD Specimen: Large Intestine, Colon - Left/Descending, biopsy of mass DIAGNOSIS COLON, LEFT/DESCENDING, BIOPSIES OF MASS - COLON MUCOSA WITH LOW GRADE DYSPLASIA - see comment Signing Pathologist Direct Phone Line: [phone] NOSIS COMMENT No high grade dysplasia or carcinoma is seen in the sampled tissue. 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 Considering this information, the biopsy could be superficial and focal sampling of a tubular adenoma with an invasive carcinoma or could just be a large tubular adenoma. 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 Large intestine, colon, left/descending biopsy of mass GROSS DESCRIPTION Received in formalin labeled with the patient's name, accession number and "large intestine, colon - left/descending" are three horan-pink tissues ranging from 0.2 to 0.4 cm in greatest dimension. The specimen is submitted in toto following filtration in cassette A1. KM/pl MICROSCOPIC DESCRIPTION Microscopic examination is performed and the findings are incorporated in the diagnostic line. Most Recent Imaging: No images are attached to the encounter. Assessment: 1. Incomplete emptying 2. Recurrent UTI's Plan: 1. Florajen/ellura info, Rx estrace 3x/wk 2. Order for CIC TID in rehab hospital and record pvr's 3. RTC 6-8 wks with pvr and pelvic exam without catheter in place. documented in this encounter Plan of Treatment Health Maintenance Due Date Last Done Comments TETANUS SHOT (ADULT) 1950 MEDICARE AWV (Initial) 04/01/1999 FALL SCREEN 1999 OSTEOPOROSIS SCREENING 1999 PNEUMOVAX >=65 (PPSV23) 1999 PREVNAR >= 65 (PCV13) 1999 FLU VACCINE > 6 MONTHS 10/31/2019 documented as of this encounter Results Not on filedocumented in this encounter Visit Diagnoses Diagnosis Incomplete bladder emptying - Primary documented in this encounter Insurance Payer Benefit Plan / Subscriber ID Effective Dates Phone Addre ss Type Group MEDICARE MEDICARE PART A xxxxxxxxxxx 1999-Present [address] Medicare & [place] [address] documented as of this encounter
--- OUTSIDE RECORDS SUMMARY | 2019-07-09 18:40 | XMS REPORT | Summary of Care ---
:1935 Author Organization [facility] [place] [address] Care Team Providers Name Role Phone Unavailable Primary Care Provider Unavailable Reason for Referral Radiology Services (Routine) Status Reason Specialty Diagnoses / Referred By Contact Refe rred To Contact Procedures Pending Radiology Diagnoses Malignant neoplasm of sigmoid colon (HCCode) Olena Mcpherson PA Procedures CT CHEST WO CONTRAST [address] [place], [place] [address] Phone: Reason for Visit Reason Comments Initial Consultation Consult, Test & Treat (Routine) Status Reason Specialty Diagnoses / Referred By Referred To Procedures Contact Contact Authorization Not Colon and Diagnoses NOV discuss sx Mn Cc General Mohsen Oro, Needed Rectal Surgery Procedures GEN SURG NEW OFFICE VISIT Surgery MD / General [address], [place], [place] [address] [address] [place] Phone: [phone] Phone: Encounter Details Date Type Department Care Team Description 05/12/2019 Office Visit [facility] Mohsen Johnston MD [facility] Gabriel Mireles [address] [facility] [place] [address] [facility] [phone] [facility] Floor, [address] [place] [address] Allergies No Known Allergiesdocumented as of this encounter (statuses as of 06/03/2019) Medications Medication Sig Dispensed Refills Start Date End Date Status Na Sulfate-K [SUPREP] Take 1 Bottle 0 03/18/2019 Ac tive Sulfate-Mg Sulf as directed. (SUPREP BOWEL PREP KIT) 17.5-3.13-1.6 GM/177ML SOLN losartan (COZAAR) Take 50 mg by 0 Active 50 MG tablet mouth daily. amlodipine-atorvas Take 1 Tab by 0 Active tatatin (CADUET) mouth daily. 2.5-10 MG per tablet pantoprazole Take 40 mg by 0 Act george (PROTONIX) 40 MG mouth daily. tablet Acetaminophen Take by 0 Active (TYLENOL 8 HOUR mouth. OR) ciprofloxacin TAKE 1 TABLET 0 04/03/2019 A ctive (CIPRO) 500 MG BY MOUTH tablet TWICE DAILY FOR 10 DAYS metronidazole Take 500 mg 0 Acti ve (FLAGYL) 500 MG by mouth 3 tablet times daily. neomycin Take 2 6 Tab 0 05/12/2019 Active (MYCIFRADIN) 500 tablets by MG mouth at tabletIndications: 1:00PM, 4:00 Malignant neoplasm PM, and 7:00 of sigmoid colon PM the day (HCCode) prior to your surgery metronidazole Take 1 tablet 3 Tab 0 05/12/2019 A ctive (FLAGYL) 500 MG by mouth at tabletIndications: 1:00 PM, 4:00 Malignant neoplasm PM, and 7:00 of sigmoid colon PM the day (HCCode) prior to your surgery Na Sulfate-K Take as 354 mL 1 05/12/2019 Active Sulfate-Mg Sulf directed (SUPREP BOWEL PREP KIT) 17.5-3.13-1.6 GM/177ML SOLNIndications: Malignant neoplasm of sigmoid colon (HCCode) losartan (COZAAR) Take 50 mg by 0 03/26/2019 02 Discontinued 50 MG tablet mouth. 0 (*Dupli atiya medication ) documented as of this encounter (statuses as of 06/03/2019) Active Problems Not on filedocumented as of this encounter (statuses as of 06/03/2019) Social History Tobacco Use Types Packs/Day Years [...] Sign Reading Time Taken Comments Blood Pressure 137/84 05/12/2019 9:57 AM MANAGER POWER Pulse 89 05/12/2019 9:57 AM MANAGER POWER Temperature 36.8 C (98.2 F) 05/12/2019 9:57 AM MANAGER POWER Respiratory Rate 16 05/12/2019 9:57 AM MANAGER POWER Oxygen Saturation - - Inhaled Oxygen Concentration - - Weight 47.8 kg (105 lb 6.4 oz) 05/12/2019 9:57 AM MANAGER POWER Height 157.5 cm (5' 2") 05/12/2019 9:57 AM MANAGER POWER Body Mass Index 19.28 05/12/2019 9:57 AM MANAGER POWER documented in this encounter Progress Notes Mohsen Oro MD - 05/12/2019 11:45 AM CST Department of Surgery Division of Colorectal Surgery Chief Complaint Patient presents with Initial Consultation Kevin Andujar is a 84 y.o. female with a PMH significant for anxiety, HTN, diverticulitis, and GERD presents to [facility] Colorectal Surgery Clinic for evaluation and management of colon cancer. Patient initially underwent a colonoscopy and was found to have a sigmoid polyp that was unable to be removed due to tortuous colon and location in diverticulosis area. Biopsy showed TVA. She was referred to Dr. Miles for EMR which could not be completed due to the likelihood of malignancy. She admits toweight loss but is unsure the amount and over what time frame. She admits to generalized abdominal pain, constipation, diarrhea, rectal pain, and rectal bleeding. Of note, patient has presented to [facility] ED due to the rectal bleeding. She denies a family history of IBD and colon/rectal cancer. Previous Work Up: - Colonoscopy (05/07/19) - [...] not have the final read of scan) Review of Systems Constitutional: Positive for malaise/fatigue and weight loss. Sweats HENT: Dental problems Eyes: Itching, vision changes, cataracts Respiratory: Negative. Cardiovascular: Blood pressure problems Gastrointestinal: Positive for abdominal pain, blood in stool, constipation, diarrhea and heartburn. Hemorrhoids, rectal pain Genitourinary: Urinating at night Musculoskeletal: Positive for myalgias. Arthritis, stiffness Skin: Negative. Neurological: Positive for dizziness, tremors and weakness. Endo/Heme/Allergies: Negative. Psychiatric/Behavioral: Negative. Past Medical History: Diagnosis Date Allergies Anxiety Arthritis Cataract Diverticulitis GERD (gastroesophageal reflux disease) Hypertension Osteoporosis Recurrent UTI Varicose vein of leg Past Surgical History: Procedure Laterality Date HX APPENDECTOMY HX BLADDER SUSPENSION 2009 HX HYSTERECTOMY Family History Problem Relation Name Age of Onset Nephrolithiasis Father Social History Tobacco Use Smoking status: Never Smoker Smokeless tobacco: Never Used Substance Use Topics Alcohol use: Never Frequency: Never Drug use: Never Current Outpatient Medications on File Prior to Visit Medication Sig Dispense Refill Acetaminophen (TYLENOL 8 HOUR OR) Take by mouth. amlodipine-atorvastatatin (CADUET) 2.5-10 MG per tablet Take 1 Tab by mouth daily. ciprofloxacin (CIPRO) 500 MG tablet TAKE 1 TABLET BY MOUTH TWICE DAILY FOR 10 DAYS losartan (COZAAR) 50 MG tablet Take 50 mg by mouth daily. metronidazole (FLAGYL) 500 MG tablet Take 500 mg by mouth 3 times daily. Na Sulfate-K Sulfate-Mg Sulf (SUPREP BOWEL PREP KIT) 17.5-3.13-1.6 GM/177ML SOLN [SUPREP] Take as directed. 1 Bottle 0 pantoprazole (PROTONIX) 40 MG tablet Take 40 mg by mouth daily. No current facility-administered medications on file prior to visit. No Known Allergies Vitals: 05/12/19 0957 BP: 137/84 Pulse: 89 Resp: 16 Temp: 98.2 F (36.8 C) Weight: 105 lb 6.4 oz (47.8 kg) Height: 5' 2" (1.575 m) Physical Exam Constitutional: She is oriented to person, place, and time and well-developed, well-nourished, and in no distress. HENT: Head: Normocephalic and atraumatic. Mouth/Throat: Oropharynx is clear and moist. Eyes: Conjunctivae and EOM are normal. Neck: Normal range of motion. Neck supple. Cardiovascular: Normal rate and regular rhythm. Pulmonary/Chest: Breath sounds normal. No respiratory distress. She exhibits no tenderness. Abdominal: Soft. She exhibits no distension and no mass. There is no abdominal tenderness. Musculoskeletal: Normal range of motion. General: No deformity or edema. Neurological: She is alert and oriented to person, place, and time. Skin: Skin is warm and dry. Imaging/Labs: CEA (05/07/19) CEA, SERUM 3.6 0.0 - 5.0 ng/mL Final Colonoscopy (05/07/19) Findings: - A large amount of stool was found in the rectum, precluding visualization. - A fungating partially obstructing large mass was found in the sigmoid colon. The mass was partially circumferential (involving one-half of the lumen circumference). The mass measured three cm in length. Oozing was present. Biopsies were taken with a cold forceps for histology. - Multiple small and large-mouthed diverticula were found in the sigmoid colon. There was no evidence of diverticular bleeding. Impression: - Stool in the rectum. - Likely malignant partially obstructing tumor in the sigmoid colon. Removal was not done given the high likelihoodof cancer and poor prep. Biopsied. - Moderate diverticulosis in the sigmoid colon. There was no evidence of diverticular bleeding. Pathology: DIAGNOSIS COLON, LEFT/DESCENDING, BIOPSIES OF MASS - COLON MUCOSA WITH LOW GRADE DYSPLASIA COMMENT No high grade dysplasia or carcinoma is seen in the sampled tissue. 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 Considering this information, the biopsy could be superficial and focal sampling of a tubular adenoma with an invasive carcinoma or could just be a large tubular adenoma. Assessment/Plan: Kevin Andujar is a 84 y.o. female with a PMH significant for anxiety, HTN, diverticulitis, and GERD presents to [facility] Colorectal Surgery Clinic for evaluation and [...] not have the final read of scan) * Order a CT Chest for completion of staging. * Request cardiac clearance from Dr. Rehan Rodriguez * We will schedule the patient for a robotic LAR. Risks and benefits of the procedure were discussed. She states understanding and would like to proceed forward. Surgery consent form was signed and placed into patients chart. * She will return to clinic 2 weeks post op. In the meantime, she may call the clinic with any questions or concerns. Procedure(s), expectations, possible complication(s), and alternatives to surgery/ansesthesia discussed with patient and spouse and they agree as presented. The patient and I discussed the risks of Abdominal surgery with bowel resection, which include , conversion from laparoscopic to open surgery, anastomotic leak, bowel obstruction, injury to adjacent bowel or other organs including the spleen, possible fistula formation, possible colostomy or ileostomy, bleeding, injury to urethra and/or ureter, renal failure (acute or chronic), sexual dysfunction including erectile dysfunction, retrograde e jaculation, infertility or decreased fertility, possible parastomal hernia, possible intra-abdominalabscess formation, possible superficial wound infection, wound dehiscence, and formation of incisional hernia. In those cases where a tumor is present, another risk includes the inablility to remove the tumor. Other possibilities include pulmonary embolism, pneumonia, deep venous thrombosis formation,requiring further surgery, possible recurrence of tumor symptoms, or anastomotic stricture. Olena Mcpherson PA-C I saw and examined the patient, discussed the disease process and treatment with the patient. I haveedited the note for accuracy and agree with the documentation and note by the physician speech and language assistant. Thank you for this referral to the [facility] Colorectal Surgery Program. Please feel free to call us at [phone] for any questions. We look forward to taking care of this patient mutually. Mohsen Oro M.D. Guest Services Lead and Chief of Colorectal Surgery [facility] documented in this encounter Plan of Treatment Date Type Specialty Care Team Description 06/10/2019 Office Visit General Surgery Mohsen Oro MD [address] [place], [place] [address] [phone] Name Type Priority Associated Diagnoses Order S chedule CT CHEST WO CONTRAST Imaging Routine Malignant neoplasm o f 1 Occurrences starting sigmoid colon (HCCode) 05/12 until 12/11/2019 Health Maintenance Due Date Last Done Comments TETANUS SHOT (ADULT) 1950 MEDICARE AWV (Initial) 04/01/1999 FALL SCREEN 1999 OSTEOPOROSIS SCREENING 1999 PNEUMOVAX >=65 (PPSV23) 1999 PREVNAR >= 65 (PCV13) 1999 FLU VACCINE > 6 MONTHS 10/30/2018 documented as of this encounter Results Not on filedocumented in this encounter Visit Diagnoses Diagnosis Malignant neoplasm of sigmoid colon (HCC ode) - Primary Malignant neoplasm of sigmoid colon documented in this encounter Insurance Payer Benefit Plan / Subscriber ID Effective Dates Phone Addre ss Type Group MEDICARE MEDICARE PART A xxxxxxxxxxx 1999-Present [address] Medicare [place] [address] documented as of this encounter
--- OUTSIDE RECORDS SUMMARY | 2019-07-09 18:40 | XMS REPORT | Summary of Care ---
:1935 Author Organization [facility] [place] [address] Care Team Providers Name Role Phone Unavailable Primary Care Provider Unavailable Reason for Visit Reason Comments Post-op Follow-up Encounter Details Date Type Department Care Team Description 07/07/2019 Office Visit [facility] Mohsen Johnston MD Post-op Follow-up [address] [place] [address] [address] [facility] [phone] 7th Floor, [address] [place] [address] Allergies No Known Allergiesdocumented as of [...] of this encounter Last Filed Vital Signs Not on filedocumented in this encounter Progress Notes Mohsen Oro MD - 07/07/2019 9:00 AM CDT Department of Surgery Division of Colorectal Surgery Chief Complaint Patient presents with Post-op Follow-up Kevin Andujar is a 84 y.o. Kevin Andujar is a 84 y.o. female with a PMH significant for anxiety, HTN, diverticulitis, and GERD presents to [facility] Col[facility] Clinic for cancer in sigmoid colon. She is s/p robotic low anterior resection with colo-rectal anastomosis and en bloc left oophorectomy on 05/25/19. Pathology shows TVA (w/o HGD or malignancy), diverticular disease, marginsnegative, and 0/24 positive for malignancy. Of note, patient underwent a CTAP in the hospital due topjacqueistent leukocytosis showed a new large peripancreatic fluid collection, underwent IR drainage 06/10 with positive fluid amylase (>13K) c/w pancreas leak. She is doing well post operatively. Her drain output is 10-15mL / day. She is tolerating a regular diet and is no longer on TPN per [facility]. She denies nausea and vomiting. She has 3 semi formed bowel movements daily. She denies fever an chills. She continues with PT / OT. Terry in place and has an appointment with Urology today. CT AP on 06/29 showed a small fluid collection that is resolving. General: well developed, well nourished, no acute distress Neuro: AAO x 3, no focal deficits noted HEENT: NCAT, EOMI, no scleral icterus, MMM Neck: supple, normal ROM Chest: nonlabored respirations on room air, clear to auscultation bilaterally CV: RRR Abdomen: soft, NT, ND, well healed incision sites, drain in LUQ : terry catheter in place Ext: moves all 4 extremities without difficulty, no edema or deformity, PICC in RUE Skin: warm and dry; no rashes, nodules, [...] anxiety, HTN, diverticulitis, and GERD presents to [facility] Col[facility] Clinic for evaluation and management of colon cancer. Patient initially underwent a colonoscopy and was found to have a sigmoid polyp that was unable to be removed due to tortuous colon and location in diverticulosis area. Biopsy showed TVA. She was referred to Dr. Miles for EMR which could not be completed due to the likelihood of malignancy. Previous WorkUp: - Colonoscopy (05/07/19) - moderate diverticulosis in sigmoid colon and a partially obstructing tumor in the sigmoid colon - biopsied, not tattooed. Pathology showed colonic mucosa with LGD (comment: the biopsy could be superficial and focal sampling of a tubular adenoma with an invasive carcinoma or could just be a large tubular adenoma) - CEA (05/07/19) - 3.8 - CT AP (05/11/19) - no mets on imaging(we do not have the final read of scan) - CT Chest (05/22/19) - no metastasis seen - Robotic low anterior resection with colo-rectal anastomosis and en bloc left oophorectomy on 05/25/19. 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 So, she had a large rectosigmoid polyp without invasive disease. PLAN: * Pancreatic leak: Drain was removed bedside without complication. Would monitor for fever, nausea, vomiting or abdominal pain. If occurs pls get a CT A/P with iv contrast ang have her FU with us. * Diarrhea: This might be her baseline. She is claiming some solid stool mixed with liquid. C diff is unlikely. She is to begin taking 15-30 grams of fiber daily. If still need to control the stools after that, may start low dose imodium daily. * PICC line: Due to adequate PO intake the PICC line may be removed at [facility] if not needed for anyother purpose. * Urinary retention: She will see Urology today for management of terry catheter. Will leave furthermanagement of urinary retention to them. * Further follow up: She may return to clinic on an as needed basis. She may get a colonoscopy for surveillance in 3-5 years but considering her age she may want to forego that. No Fu needed unless having active issues as mentioned above. In the meantime, she may call the clinic with any questions or concerns. May be discharged from [facility] if no other issues are present. Pls discuss social situationwith family. Olena Mcpherson PA-C I saw and examined the patient, discussed the disease process and treatment with the patient. I haveedited the note for accuracy and agree with the documentation and note by the physician inventory control assistant. Thank you for this referral to the [facility] Colorectal Surgery Program. Please feel free to call us at for any questions. We look forward to taking care of this patient mutually. Mohsen Oro M.D. Wood Grinder Operator and Chief of Colorectal Surgery [facility] documented in this encounter Plan of Treatment Date Type Specialty Care Team Description 07/07/2019 Office Visit Urology Elbert Alicia MD [address] [facility] 10TH FLOOR, [address] [place], [place] [address] [phone] Health Maintenance Due Date Last Done Comments TETANUS SHOT (ADULT) 1950 MEDICARE AWV (Initial) 04/01/1999 FALL SCREEN 1999 OSTEOPOROSIS SCREENING 1999 PNEUMOVAX >=65 (PPSV23) 1999 PREVNAR >= 65 (PCV13) 1999 FLU VACCINE > 6 MONTHS 10/31/2019 documented as of this encounter Results Not on filedocumented in this encounter Visit Diagnoses Diagnosis Adenomatous polyp of sigmoid colon - Danica danny 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
[2019-07-09] MEDS ORDERED: ONDANSETRON 4 MG (ODT) TAB PO PRN (18:55)
[2019-07-09] MEDS ORDERED: SIMETHICONE 80 MG TAB PO PRN (19:04)
[2019-07-09] MEDS ORDERED: CEPACOL LOZENGES PO PRN (19:05)
[2019-07-09] MEDS ORDERED: D50W 25 GM/50 ML SYRINGE/VIAL IV PRN (19:07)
[2019-07-09] MEDS ORDERED: GLUCAGON 1 MG/VIAL IM PRN (19:07)
[2019-07-09 20:23] LABS: Urine Appearance CLEAR; Urine Bilirubin NEGATIVE (NEG); Urine Blood 3+ (NEG); Urine Color YELLOW; Urine Glucose NEGATIVE (NEG); Urine Protein 2+ (NEG); Urine Urobilinogen 0.2 mg/dL (0.2-1.0)
[2019-07-09 20:31] LABS: Urine Bacteria <20 /HPF (<20); Urine RBC <5 /HPF (NONE SEEN)
[2019-07-09] MEDS: ENSURE ENLIVE 237 ML CAN PO SCH (20:31)
[2019-07-09] MEDS: POLYETHYL GLY 3350 17 GM/DOSE PO SCH (20:31)
[2019-07-09 20:32] LABS: Urine Amorphous Sediment 1+ /HPF (NONE SEEN); Urine Culture Reflex Order NOT NEEDED; Urine Mucus 1+ /HPF (NONE SEEN)
[2019-07-09] MEDS: INSULIN -REGULAR HUMAN 50 UNIT/0.5 ML ML SQ SCH (21:00)
[2019-07-09] MEDS: ACETAMINOPHEN 325 MG TABLET PO PRN (21:45)
[2019-07-09] MEDS ORDERED: IPRATROPIUM BROM 0.5MG/2.5ML NEB PRN (22:14)
[2019-07-10] MEDS: METOPROLOL TAR 25 MG TAB PO SCH ×2 (05:34→18:00)
[2019-07-10 06:58] LABS: Basophils % 1.3 % (0-1.3); Hematocrit 26.3 % (36.0-45.0); Lymphocytes % 19.9 % (15.3-44.8); MPV 9.5 fL (7.6-11.3)
[2019-07-10] MEDS: PANTOPRAZOLE 40MG TABLET PO SCH ×2 (07:01→17:46)
[2019-07-10 07:29] LABS: Magnesium 1.9 mg/dL (1.8-2.4); Potassium 3.8 mmol/L (3.5-5.1); Prealbumin 17.9 mg/dL (20-40)
[2019-07-10] MEDS: INSULIN -REGULAR HUMAN 50 UNIT/0.5 ML ML SQ SCH ×4 (07:30→20:52)
[2019-07-10] MEDS ORDERED: levoFLOXacin 500 MG TAB PO SCH (08:00)
[2019-07-10 08:21] LABS: Blood Morphology Comment NOT SEEN (NOT SEEN); Platelet Estimate ADEQ; Urine White Blood Cell Casts OK
[2019-07-10] MEDS ORDERED: IPRATROPIUM 200 PUFF/12.9 GM INH IH SCH (09:00)
[2019-07-10] MEDS: POLYETHYL GLY 3350 17 GM/DOSE PO SCH ×2 (09:06→19:22)
[2019-07-10] MEDS: ENOXAPARIN 30 MG/0.3 ML SQ SCH (09:06)
[2019-07-10] MEDS: IPRATROPIUM 200 PUFF/12.9 GM INH IH SCH ×2 (09:07→19:22)
[2019-07-10] MEDS: THIAMINE HCL 100 MG TABLET PO SCH (09:07)
[2019-07-10] MEDS: TAMSULOSIN 0.4 MG SR CAP PO SCH (09:07)
[2019-07-10] MEDS: ENSURE ENLIVE 237 ML CAN PO SCH ×2 (09:09→19:24)
[2019-07-10] MEDS: LIDOCAINE 4% PATCH TOP SCH (09:22)
--- NOTE | 2019-07-10 10:19 | P.RH.PN ---
Estimated Length of Stay: 10 Expected Discharge Date: 07/18/19 Discharge Disposition Plan: Home Family Support: Yes [facility] Goal: Mobility, Transfers, Self Care Vital Signs: Last Vital Signs Temp 98.5 F 07/09/19 20:00 Pulse 74 07/10/19 05:35 Resp 18 07/09/19 20:00 BP 105/69 07/10/19 05:35 Pulse Ox 95 07/09/19 20:00 Laboratory: Laboratory Last Values WBC 5.2 K/uL (4.3-10.9) 07/10/19 06:06 RBC 3.00 M/uL (3.86-4.86) L 07/10/19 06:06 Hgb 8.7 g/dL (12.0-15.0) L 07/10/19 06:06 Hct 26.3 % (36.0-45.0) L 07/10/19 06:06 MCV 87.7 fL (80-100) D 07/10/19 06:06 MCH 28.9 pg (27.0-35.0) 07/10/19 06:06 MCHC 32.9 g/dL (32.0-36.0) 07/10/19 06:06 RDW 15.4 % (12.1-15.2) H 07/10/19 06:06 Plt Count 349 K/uL (152-406) 07/10/19 06:06 MPV 9.5 fL (7.6-11.3) 07/10/19 06:06 Neutrophils % 66.1 % (41.7-73.7) 07/10/19 06:06 Lymphocytes % 19.9 % (15.3-44.8) 07/10/19 06:06 Monocytes % 9.5 % (3.3-12.3) 07/10/19 06:06 Eosinophils % 3.2 % (0-4.4) 07/10/19 06:06 Basophils % 1.3 % (0-1.3) 07/10/19 06:06 Absolute Neutrophils 3.4 K/uL (1.8-8.0) 07/10/19 06:06 Absolute Lymphocytes 1.0 K/uL (0.7-4.9) 07/10/19 06:06 Absolute Monocytes 0.5 K/uL (0.1-1.3) 07/10/19 06:06 Absolute Eosinophils 0.2 K/uL (0-0.5) 07/10/19 06:06 Absolute Basophils 0.1 K/uL (0-0.5) 07/10/19 06:06 Morphology Comment Not seen (NOT SEEN) 07/10/19 06:06 Sodium 149 mmol/L (136-145) H 07/10/19 06:06 Potassium 3.8 mmol/L (3.5-5.1) 07/10/19 06:06 Chloride 116 mmol/L (98-107) H 07/10/19 06:06 Carbon Dioxide 27 mmol/L (21-32) 07/10/19 06:06 BUN 32 mg/dL (7-18) H 07/10/19 06:06 Creatinine 1.23 mg/dL (0.55-1.3) 07/10/19 06:06 Estimated GFR 41 mL/min (=/>90) L 07/10/19 06:06 Glucose 94 mg/dL (74-106) 07/10/19 06:06 POC Glucose 77 mg/dl (65-120) 07/10/19 07:43 Calcium 8.6 mg/dL (8.5-10.1) 07/10/19 06:06 Magnesium 1.9 mg/dL (1.8-2.4) 07/10/19 06:06 Albumin 2.0 g/dL (3.4-5.0) L 07/10/19 06:06 Prealbumin 17.9 mg/dL (20-40) L 07/10/19 06:06 Urine Color Yellow 07/09/19 19:17 Urine Appearance Clear 07/09/19 19:17 Urine pH 5.0 (5.0-7.0) 07/09/19 19:17 Ur Specific Webb 1.010 (1.005-1.030) 07/09/19 19:17 Glucose (UA)(Auto) Negative (NEG) 07/09/19 19:17 Urine Ketones Negative (NEG) 07/09/19 19:17 Urine Blood 3+ (NEG) H 07/09/19 19:17 Urine Nitrite Negative (NEG) 07/09/19 19:17 Urine Bilirubin Negative (NEG) 07/09/19 19:17 Urine Urobilinogen 0.2 mg/dL (0.2-1.0) 07/09/19 19:17 Ur Leukocyte Esterase Negative (NEG) 07/09/19 19:17 Urine RBC <5 /HPF (NONE SEEN) 07/09/19 19:17 Urine WBC <5 /HPF (<5) 07/09/19 19:17 Ur Squamous Epith Cells <5 /HPF (NONE SEEN) 07/09/19 19:17 Amorphous Sediment 1+ /HPF (NONE SEEN) 07/09/19 19:17 Urine Bacteria <20 /HPF (<20) 07/09/19 19:17 Urine Mucus 1+ /HPF (NONE SEEN) 07/09/19 19:17 Urine Culture Reflexed Not needed 07/09/19 19:17 Urine Total Protein 2+ (NEG) H 07/09/19 19:17 Weight: 114 lb Physician Update: Labs reviewed and are stable except for a possible UTI. Cultures are pending. She is upset about having meat on her breakfast plate today due to Lent. She has arthritis in her knees and mild gait limitation. Will put pain patches on her knees. She walked 90' with contact guard assistance. Summary: Patient's care plan and termite treater goals have been reviewed and revised as necessary. Please see the Rehabilitation Signature page for all necessary signatures.
--- NOTE | 2019-07-10 13:25 | R.HP ---
FACILITY: [facility] ENCOUNTER DATE AND TIME: 07/10/2019 13:18 (CDT) MR#: [id number] NAME YAMILKA ANDUJAR ADDRESS: [address] [place] [address]: [place] STATE: [place]IP [id number] PHONE: DATE OF : 1935 AGE: 84 SSN# [id number] GENDER: Female DEXTERITY Right-handed MARITAL STATUS RACE White PRE-HOSPITAL LIVING SETTING 01 - Home (private home/apt. board/care, assisted living, fpc, transitional living) PRE-HOSPITAL LIVING WITH Alone ENCOUNTER PHYSICIAN: Dr. Ryan Medina M.D. REFERRING DOCTOR: DR. VICKI RIVAS DATE OF ADMISSION: 07/09/2019 18:23 (CDT) REFERRING FACILITY [facility] HOME TYPE AND DETAILS: Type of home: single family house # of steps within the residence: 0 # of steps to enter the residence: 0 ONSET DATE: 05/25/2019 PRIMARY DIAGNOSIS-RELATED SURGERIES: ROBOTIC LOW ANTERIOR BOWEL RESECTION, W/ COLO-RECTAL ANASTOMOSIS, SPLENIC FLEXURE MOBILIZATION, EN BL OC LEFT OOPHORECTOMY AND INCISIONAL VAC PLACEMENT. IR DRAINAGE OF NEW LARGE PERIPANCREATIC FLUID COLLECTION. PLACEMENT OF PERCUTANEOUS DRAINAGE CATHETER. HISTORY OF PRESENT ILLNESS (HPI): Pt. is a 84 yo Right-handed white female. On 05/25/2019 she was admitted to [facility] with diagnosis BOWEL RESECTION/BOWEL OBSTRUCTION. Her impairment category is Debility 16 - Debility (16). Pre-morbidly, Pt. was independent/mod-I in Locomotion, Transfers Control, Self-Care, and Endurance; a nd she had good Safety Awareness, Social Cognition, Sphincter Control, Communication, Endurance, and Balance. Currently, she has deficits of Locomotion, Balance, Transfers Control, Self-Care, Endurance, Safety A wareness, Social Cognition, and Sphincter Control. Pt. is now referred to [facility] for acute in-patient rehabilitation in order to maximize patient's functional independence in activities of daily living, strength, ROM, and mobi lity. Patient has realistic goal of being discharged at assistance level 6-Odell to reside at Home with Fam martha/Relatives. Mrs. Yamilka Andujar is an 84 year old female who prior to her current illness lived at home, in a private one story home with no steps, independently. Mrs. Andujar was independent and active both in the community and in the household. Mrs. Andujar was also driving. Mrs. Andujar underwent a scheduled robotic low anterior bowel resection on 05/25/19 with colo-rectal anastomosis, splenic flexure mobilization, en bloc left oophorectomy, and incisional VAC placement and was taken to PACU for recovery. Mrs. Andujar was reintubated due to hypotension in PACU. Pt was extubated 05/27/19. Abdominal CT performed 05/29/19 revealed a high-grade small bowel obstruction. At that time NGT was placed and and TPN was later started 05/30. Subsequent SBFT on 05/31 showed passage of contrast into colon and NGT was removed. A repeat CTAP obtained 06/09 revealed a new large peripancreatic fluid collection and Mrs. Andujar underwent IR drainage 06/10 with positive fluid amylase consistent with pancreas leak. A percutaneous drainage catheter was placed. Mrs. Andujar was discharged to [facility] facility [facility]/20 to continue TPN for severe protein-caloric malnutrition. At this time Mrs. Andujar was afebrile with normal vitals, making adequate urine output via indwelling catheter, and tolerating a GI soft diet. Patient has now completed her TPN therapy, is medically stable but in need of 24-hour nursing, doctor supervision and oversight while receiving active and ongoing intensive (PT, OT and/or SPT). The patient is reasonably expected to participate in 3 hours of therapy a day/15 hours per week and receive care with intensive interdisciplinary approach. COVID-19 screening performed with nurse caring for patient at LTAC. She denies patient having any new onset of fever, cough, difficulty breathing, sore throat, body aches or non-allergy nasal congestion in the past 24 hours. Patient has not traveled outside of [place] in the past 14 days. Patient has had no contact with someone who has a confirmed diagnosis of or is under investigation for COVID-19 in the past 14 days. MEDICATION ALLERGIES: No Known Drug Allergies (NKDA) ENVIRONMENTAL ALLERGIES: - Substance Allergies None Known - Other Allergies None Known PAST MEDICAL HISTORY: Feeling of incomplete bladder emptying (R39.14) UTI anxiety HTN Diverticulitis GERD FAMILY HISTORY: Family history is not contributory. SOCIAL HISTORY: - Home Living Alone REVIEW OF SYSTEMS: - Gen No Chills Fatigue No Fever - Eyes No Double Vision No itchiness - ENMT No Difficulty Swallowing - CVS No Chest Discomfort No Chest Pain No Fatigue No Weight Gain - Resp No Cough No Shortness of Breath - GI Continent No Abdominal Pain Constipation No Diarrhea - Continent No Kidney Pain No Painful Urination No Urinary Urgency - MSK No Joint Pain Muscle Cramps No Stiffness - Skin No Itching No Rash No Suspicious Lesions - Neuro Coordination Difficulty No Difficulty with Concentration No Memory Loss No Seizures Weakness - Psych No Anxiety No Depression No HIV Exposure No Persistent Infections No Seasonal Allergies - Endo No Cold/Heat Intolerance No Excessive Hunger No Excessive Thirst No Excessive Urination PHYSICAL EXAM - Gen Alert and awake Lying in bed No apparent distress Oriented to: person, time, and place - Skin No skin breakdown. Normacephalic - Eyes No abnormalities - ENMT No abnormalities - Neck No abnormalities - CVS RRR - Chest No abnormalities - Resp Clear to auscultation - Abd Soft - GI Non distended Deferred - No abnormalities - Ext No significant edema - MSK Unremarkable - Neuro No focal deficits - Psych No abnormalities VITAL SIGNS Temperature: 98.1 F SBP/DBP: 136/72 Pulse: 97 Resp: 20 NURSING: - Shower allowing shower ACTIVITIES OOB only with supervision QI SCORES: - Self-Care A. Eating 05-Setup or clean-up assistance B. Oral hygiene 05-Setup or clean-up assistance C. Toileting hygiene 01-Dependent E. Shower/bathe self 03-Partial/moderate assistance F. Upper body dressing 04-Supervision or touching assistance G. Lower body dressing 03-Partial/moderate assistance H. Putting on/taking off footwear 02-Substantial/maximal assistance - Mobility A. Roll left and right 04-Supervision or touching assistance B. Sit to lying 04-Supervision or touching assistance C. Lying to sitting on side of bed 04-Supervision or touching assistance D. Sit to stand 04-Supervision or touching assistance E. Chair/xjr-rg-iairg transfer 04-Supervision or touching assistance F. Toilet transfer 04-Supervision or touching assistance G. Car transfer 88-Not attempted due to medical condition or safety concerns I. Walk 10 feet 03-Partial/moderate assistance E. Chair/rmy-ay-chipi transfer 03-Partial/moderate assistance K. Walk 150 feet 88-Not attempted due to medical condition or safety concerns L. Walking 10 feet on uneven surfaces 88-Not attempted due to medical condition or safety concerns M. 1 step (curb) 88-Not attempted due to medical condition or safety concerns N. 4 steps 88-Not attempted due to medical condition or safety concerns O. 12 steps 88-Not attempted due to medical condition or safety concerns P. Picking up object 88-Not attempted due to medical condition or safety concerns R. Wheel 50 feet with two turns S. Wheel 150 feet - Bladder and Bowel Bladder continence 4-Always incontinent Bowel continence 9-Not rated - Endurance Poor - Balance Poor - Safety Awareness Poor CURRENT FUNC. DEFICITS: Self-Care, Mobility, Endurance, Balance, and Safety Awareness MEDICATIONS: - Other See attached MAR (Medication Administration Record) ASSESSMENT: Pt. is a 84 yo Right-handed white female.On 05/25/2019 she was admitted to [facility] with diagnosis BOW EL RESECTION/BOWEL OBSTRUCTION.Her impairment category is Debility 16 - Debility (16).Pre-morbidly, Pt. was independent/mod-I in Locomotion, Transfers Control, Self-Care, and Endurance; and she had goo d Safety Awareness, Social Cognition, Sphincter Control, Communication, Endurance, and Balance.Curren tly, she has deficits of Locomotion, Balance, Transfers Control, Self-Care, Endurance, Safety Awarene ss, Social Cognition, and Sphincter Control.Pt. is now referred to [facility] for acute in-patient rehabilitation in order to maximize patient's functional independence in activit ies of daily living, strength, ROM, and mobility.- Rehab Goal Patient has realistic goal of being discharged at assistance level 6-Odell to reside at Home with Fam martha/Relatives. Mrs. Yamilka Andujar is an 84 year old female who prior to her current illness lived at home, in a private one story home with no steps, independently. Mrs. Andujar was independent and active both in the community and in the household. Mrs. Andujar was also driving. Mrs. Andujar underwent a scheduled robotic low anterior bowel resection on 05/25/19 with colo-rectal anastomosis, splenic flexure mobilization, en bloc left oophorectomy, and incisional VAC placement and was taken to PACU for recovery. Mrs. Andujar was reintubated due to hypotension in PACU. Pt was extubated 05/27/19. Abdominal CT performed 05/29/19 revealed a high-grade small bowel obstruction. At that time NGT was placed and and TPN was later started 05/30. Subsequent SBFT on 05/31 showed passage of contrast into colon and NGT was removed. A repeat CTAP obtained 06/09 revealed a new large peripancreatic fluid collection and Mrs. Andujar underwent IR drainage 06/10 with positive fluid amylase consistent with pancreas leak. A percutaneous drainage catheter was placed. Mrs. Andujar was discharged to [facility] facility 06/20 to continue TPN for severe protein-caloric malnutrition. At this time Mrs. Andujar was afebrile with normal vitals, making adequate urine output via indwelling catheter, and tolerating a GI soft diet. Patient has now completed her TPN therapy, is medically stable but in need of 24-hour nursing, doctor supervision and oversight while receiving active and ongoing intensive (PT, OT and/or SPT). The patient is reasonably expected to participate in 3 hours of therapy a day/15 hours per week and receive care with intensive interdisciplinary approach. COVID-19 screening performed with nurse caring for patient at [facility]. She denies patient having any new onset of fever, cough, difficulty breathing, sore throat, body aches or non-allergy nasal congestion in the past 24 hours. Patient has not traveled outside of [place] in the past 14 days. Patient has had no contact with someone who has a confirmed diagnosis of or is under investigation for COVID-19 in the past 14 days.REHAB PLAN: - Physical Therapy Gait dysfunction - to improve, our physical therapists will perform initial evaluation of pt's status upon admission and devise an individualized program for Gait Training, and Wheel Chair mobility Inability to transfer - to improve, our physical therapists will perform initial evaluation of pt's s tatus upon admission and devise an individualized program for Bed mobility Need for home safety evaluation - to improve, our physical therapists will perform initial evaluation of pt's status upon admission and devise an individualized program for Home Evaluation Need in caregiver upon discharge - to improve, our physical therapists will perform initial evaluatio n of pt's status upon admission and devise an individualized program for Caregiver Training New precaution - to improve, our physical therapists will perform initial evaluation of pt's status u tanner admission and devise an individualized program for Patient precaution education Edema - to improve, our physical therapists will perform initial evaluation of pt's status upon admi ssion and devise an individualized program for Elevation Training, and Lymphedema Therapy Poor balance - to improve, our physical therapists will perform initial evaluation of pt's status upo n admission and devise an individualized program for Balance Training Poor endurance - to improve, our physical therapists will perform initial evaluation of pt's status u tanner admission and devise an individualized program for Endurance Training Weakness - to improve, our physical therapists will perform initial evaluation of pt's status upon ad mission and devise an individualized program for Aquatic Therapy, Neuromuscular Reeducation, and Stre ngthening Achieving independence - to improve, our physical therapists will perform initial evaluation of pt's status upon admission and devise an individualized program for Community Reintegration Activities - Occupational Therapy ADL deficits - to improve, our occupation therapists will perform initial evaluation of pt's status u tanner admission and devise an individualized program for Bathing, Bed mobility, Community Reintegration , Cooking, Dressing, Eating, Fine Motor Skills, Grooming, Homemaking, Kitchen Mobility, Laundry, Vanessa ent Education, Safety Awareness, Splinting - Positioning, Transfers(Toilet, Tub, Shower), and Wheel C hair Management Cognitive deficits - to improve, our occupation therapists will perform initial evaluation of pt's st atus upon admission and devise an individualized program for Cognition - orientation Need for clinical care coordinator - to improve, our occupation therapists will perform initial evaluation of pt's s tatus upon admission and devise an individualized program for Caregiver Training Weakness - to improve, our occupation therapists will perform initial evaluation of pt's status upon admission and devise an individualized program for Aquatic Therapy, Balance, Endurance, UE ROM, and U E strengthening MEDICAL PLAN: - Diet Type Start Regular - Diet - Liquid Texture Start Regular - Tube Feed Start N/A - Other See attached MAR (Medication Administration Record) - Diet - Solid Texture Regular - Shower shower DISCHARGE PLAN: - Estimated Length of Stay (days) 13. - Consensus on plan Discharge plan has been discussed with primary caregiver. Patient/Family is in agreement with the konstantin n. Primary caregiver is in agreement with the plan. - Patient/Family Goals Return home independently. - Planned Living Setting Upon Discharge Home, to live alone. SIGNATURE PANEL: (CDT)
--- NOTE | 2019-07-10 13:33 | PAPE ---
PATIENT: [facility] MR# [id number] REFERRING DOCTOR DR. VICKI RIVAS EVALUATION DATE AND TIME 07/10/2019 13:29 (CDT) NAME YAMILKA GIORDANO DATE OF 1935 AGE 84 PHONE SSN# [id number] GENDER female EVALUATING PHYSICIAN Dr. Ryan Medina M.D. ADMISSION DIAGNOSIS: BOWEL RESECTION/BOWEL OBSTRUCTION ONSET DATE 05/25/2019 STATUS CHANGE EVALUATION: No change in Functional or Medical Status is identified compared with Pre-Admission screening. PATIENT NEEDS CLOSE MEDICAL SUPERVISION BY A REHABILITATION PHYSICIAN FOR: Coordination of Treatment Team Wound Care PATIENT REQUIRES 24X7 REHAB NURSING FOR MEDICAL AND FUNCTIONAL MGT. OF THE FOLLOWING DEFICITS: Disease Management Medication Management Patient/Family Education Providing Safe Environment Skin Integrity PATIENT REQUIRES INTENSIVE, COORDINATED INTERDISCIPLINARY APPROACH TO REHAB: Arranging Home Equipment/Services Discharge Planning Family Intervention/Training Cutting Machine Offbearer/Case Management LIST OF IDENTIFIED AND POTENTIAL PROBLEMS: Alteration in leisure activities Infection, Actual or Potential Mobility Impaired Pain, Alteration in Comfort Self Care Deficit Skin Integrity, Actual or Potential Urinary Tract Infection (UTI), Actual or Potential PATIENT COULD BE AT RISK FOR COMPLICATIONS FROM ADVERSE MEDICAL CONDITIONS DUE TO HIS/HER COMORBIDITI ES AND THE RIGORS OF THE INTENSIVE REHABILLITATION PROGRAM. METHODS OR INTERVENTIONS TO AVOID COMPLIC ATIONS INCLUDE: - Bleeding Assess lab values and manage abnormalities. Nursing to teach precautions for anti-coagulation therapy . Wound to be assessed every shift. - Infection Clinical staff to assess and manage the signs and symptoms of infection including fever, redness, war mth, etc. - Urinary Tract Infection - Falls Patient will be evaluated for Fall Precautions and will be placed on Fall Precautions as indicated pe r protocol. - Skin Breakdown Nursing will assess skin daily using assessment tool and will place on Skin Breakdown Precautions as indicated per protocol. - Pain Clinical staff may employ non-medication methods such as massage, distraction, decrease stimulus, etc . as needed. Clinical staff will assess patient's pain level every shift per protocol to assess and e nsure pain management effectiveness. Medications will be given and the pain level re-assessed. PRELIMINARY PLAN OF CARE: - Physical Therapy Patient needs Physical Therapy for a daily minimum of 1.5 hours at least 5 out of 7 days, to improve: Mobility, Strengthening, Transfers, Stretching, ROM, Endurance, Ability to manage stairs, Gait, and Balance. - Speech Therapy Patient needs Speech Therapy for a daily minimum of 0.5 hours at least 5 out of 7 days, to improve: S wallowing, Cognition, Language Skills, and Compensatory Strategies. - Rehabilitation Nursing Patient requires 24x7 Rehabilitation Nursing for: Pain Issues, Identifying and preventing risk factor s, Monitoring and reporting current medical conditions, Assisting with ambulation and transfer, Sherly ting with all ADL-s, Teaching patients about disease process and medications, Family teaching, Provid ing safe environment, Bowel and Bladder Issues, Skin Integrity, and Medication Management. Patient needs Cutting Machine Offbearer and/or Case Management for: Discharge Planning, Arranging Home Equipmen t or Services, and Family Interventions. - Dietary and Nutrition Services Patient needs Dietary and Nutrition Services for: Adequate Nutrition, Nutritional Supplements, and Nu tritional Education. - Occupational Therapy Patient needs Occupational Therapy for a daily minimum of 1.5 hours at least 5 out of 7 days, to impr ove Activities of Daily Living, including: Eating, Grooming, Bathing, Dressing, Toileting, Toilet Tra nsfers, Community Reintegration, Higher functional activities, Adaptive Equipment, Splinting, Househo ld Tasks, and Other activities as determined. QI SCORES: - Self-Care A. Eating 05-Setup or clean-up assistance B. Oral hygiene 05-Setup or clean-up assistance C. Toileting hygiene 01-Dependent E. Shower/bathe self 03-Partial/moderate assistance F. Upper body dressing 04-Supervision or touching assistance G. Lower body dressing 03-Partial/moderate assistance H. Putting on/taking off footwear 02-Substantial/maximal assistance - Mobility A. Roll left and right 04-Supervision or touching assistance B. Sit to lying 04-Supervision or touching assistance C. Lying to sitting on side of bed 04-Supervision or touching assistance D. Sit to stand 04-Supervision or touching assistance E. Chair/evh-ca-onaeu transfer 04-Supervision or touching assistance F. Toilet transfer 04-Supervision or touching assistance G. Car transfer 88-Not attempted due to medical condition or safety concerns I. Walk 10 feet 03-Partial/moderate assistance E. Chair/prf-as-zjvmd transfer 03-Partial/moderate assistance K. Walk 150 feet 88-Not attempted due to medical condition or safety concerns L. Walking 10 feet on uneven surfaces 88-Not attempted due to medical condition or safety concerns M. 1 step (curb) 88-Not attempted due to medical condition or safety concerns N. 4 steps 88-Not attempted due to medical condition or safety concerns O. 12 steps 88-Not attempted due to medical condition or safety concerns P. Picking up object 88-Not attempted due to medical condition or safety concerns R. Wheel 50 feet with two turns S. Wheel 150 feet - Bladder and Bowel Bladder continence 4-Always incontinent Bowel continence 9-Not rated - Endurance Poor - Balance Poor - Safety Awareness Poor POTENTIAL FUNCTIONAL GOALS FOR PATIENT TO ACHIEVE BY DISCHARGE: - Safety Precaution Patient will remain free from falls or injury at time of discharge. - Bed Mobility Patient will perform bed mobility at 4-[place] level of assistance. - Transfers Patient will complete transfers from bed to chair at 4-[place] level of assistance. - Mobility Patient will ambulate 150 ft with 4-[place] level of assistance with RW. PATIENT REHAB POTENTIAL Mickey GIORDANO is able and expected to receive 3 hours of individualized therapy daily on at least 5 of e very 7 days Mickey GIORDANO's prognosis for significant practical improvement within a reasonable period of time appea rs Good Expected level of measurable improvement will be of a practical value to Mickey GIORDANO's functional capa city or adaptations to impairments Has a viable Discharge Plan Medically appropriate; condition is sufficiently stable to participate in intensive rehab program DISCHARGE PLAN: - Estimated Length of Stay (days) 13. - Consensus on plan Discharge plan has been discussed with primary caregiver. Patient/Family is in agreement with the konstantin n. Primary caregiver is in agreement with the plan. - Patient/Family Goals Return home independently. - Planned Living Setting Upon Discharge Home, to live alone. SIGNATURE PANEL: (CDT)
[2019-07-10] MEDS ORDERED: MELATONIN 3 MG TABLET PO PRN (18:55)
[2019-07-10] MEDS ORDERED: TRAZODONE 50 MG TABLET PO PRN (18:56)
--- NOTE | 2019-07-11 02:36 | FAST ---
SHIFT START DATE/TIME: 07/10/2019 19:00 (CDT) SHIFT END DATE/TIME: 07/11/2019 07:00 (CDT) NAME YAMILKA GIORDANO DATE OF : 1935 DATE OF ADMISSION: 07/09/2019 18:23 (CDT) PHONE: AGE: 84 N# [id number] GENDER: Female ENCOUNTER PHYSICIAN: Dr. Ryan Medina M.D. ADMISSION DIAGNOSIS: - Debility 16 - Debility (16) BOWEL RESECTION/BOWEL OBSTRUCTION. EATING: Not assessed/no information CODE: - ORAL HYGIENE: Not assessed/no information CODE: - TOILETING HYGIENE: Not assessed/no information CODE: - BATHING: Not assessed/no information CODE: - DRESSING - UPPER BODY: Not assessed/no information CODE: - DRESSING - LOWER BODY: Not assessed/no information CODE: - PUTTING ON/TAKING OFF FOOTWEAR: Not assessed/no information CODE: - ROLL LEFT AND RIGHT: ROLL LEFT AND RIGHT - STEP 1: Does the patient complete the activity by him/herself with no assistance (physical, verbal/nonverbal cueing, setup/clean-up)? No. ROLL LEFT AND RIGHT - STEP 2: Does the patient need only setup/clean-up assistance from one helper? No. ROLL LEFT AND RIGHT - STEP 3: Does the patient need only verbal/nonverbal cueing or touching/steadying/contact guard assistance fro m one helper? No. ROLL LEFT AND RIGHT - STEP 4: Does the patient need physical assistance - for example lifting or trunk support from one helper - wi th the helper providing less than half of the effort? Yes. 1. [id number] ADMISSION PERFORMANCE: Partial/moderate assistance CODE: 03 SIT TO LYING: Not assessed/no information CODE: - LYING TO SITTING: Not assessed/no information CODE: - SIT TO STAND: Not assessed/no information CODE: - TRANSFERS: BED, CHAIR: Not assessed/no information CODE: - TRANSFER TOILET: Not assessed/no information CODE: - TRANSFERS: CAR: Not assessed/no information CODE: - WALK 10 FEET: Not assessed/no information CODE: - 1 STEP (CURB): Not assessed/no information CODE: - PICKING UP OBJECT: Not assessed/no information CODE: - DOES THE PATIENT USE A WHEELCHAIR/SCOOTER? CODE: EXPR WHEEL 50 FEET WITH TWO TURNS: Not assessed/no information CODE: - INDICATE THE TYPE OF WHEELCHAIR/SCOOTER USED: CODE: EXPR WHEEL 150 FEET: Not assessed/no information CODE: - INDICATE THE TYPE OF WHEELCHAIR/SCOOTER USED: CODE: EXPR BLADDER AND BOWEL: H350. BLADDER CONTINENCE (3-DAY ASSESSMENT PERIOD): Not applicable (e.g., indwelling catheter) CODE: 9 H400. BOWEL CONTINENCE (3-DAY ASSESSMENT PERIOD): Always continent CODE: 0
[2019-07-11] MEDS: METOPROLOL TAR 25 MG TAB PO SCH ×2 (05:09→17:04)
[2019-07-11] MEDS: ENOXAPARIN 30 MG/0.3 ML SQ SCH (07:21)
[2019-07-11] MEDS: INSULIN -REGULAR HUMAN 50 UNIT/0.5 ML ML SQ SCH ×4 (07:30→20:41)
[2019-07-11] MEDS: ENSURE ENLIVE 237 ML CAN PO SCH ×3 (08:00→20:00)
[2019-07-11] MEDS ORDERED: levoFLOXacin 250 MG TAB PO SCH (08:00)
[2019-07-11] MEDS ORDERED: FLORAJEN PO SCH (08:00)
[2019-07-11] MEDS: THIAMINE HCL 100 MG TABLET PO SCH (09:31)
[2019-07-11] MEDS: POLYETHYL GLY 3350 17 GM/DOSE PO SCH ×3 (09:31→20:40)
[2019-07-11] MEDS: LIDOCAINE 4% PATCH TOP SCH (09:31)
[2019-07-11] MEDS: LACTOBACILLUS/ACIDOPHILUS TAB PO SCH (09:31)
[2019-07-11] MEDS: FE SULF/FA/VIT B COMP & C TAB PO SCH (09:32)
[2019-07-11] MEDS: PANTOPRAZOLE 40MG TABLET PO SCH ×2 (09:32→17:05)
[2019-07-11] MEDS: IPRATROPIUM 200 PUFF/12.9 GM INH IH SCH ×2 (09:32→20:41)
[2019-07-11] MEDS: TAMSULOSIN 0.4 MG SR CAP PO SCH (09:32)
[2019-07-11] MEDS: SMZ./TMP. 800/160 MG TABLET PO SCH ×2 (12:00→20:40)
[2019-07-11] MEDS: ACETAMINOPHEN 325 MG TABLET PO PRN (20:41)
[2019-07-12] MEDS: METOPROLOL TAR 25 MG TAB PO SCH ×2 (05:43→17:05)
[2019-07-12] MEDS: INSULIN -REGULAR HUMAN 50 UNIT/0.5 ML ML SQ SCH ×4 (07:30→20:16)
[2019-07-12] MEDS: ENOXAPARIN 30 MG/0.3 ML SQ SCH (07:54)
[2019-07-12] MEDS: PANTOPRAZOLE 40MG TABLET PO SCH ×2 (07:54→17:05)
[2019-07-12] MEDS: TAMSULOSIN 0.4 MG SR CAP PO SCH (07:55)
[2019-07-12] MEDS: LACTOBACILLUS/ACIDOPHILUS TAB PO SCH (07:55)
[2019-07-12] MEDS: THIAMINE HCL 100 MG TABLET PO SCH (07:55)
[2019-07-12] MEDS: SMZ./TMP. 800/160 MG TABLET PO SCH ×2 (07:55→20:10)
[2019-07-12] MEDS: FE SULF/FA/VIT B COMP & C TAB PO SCH (07:55)
[2019-07-12] MEDS: ENSURE ENLIVE 237 ML CAN PO SCH ×2 (07:56→20:00)
[2019-07-12] MEDS: LIDOCAINE 4% PATCH TOP SCH (07:57)
[2019-07-12] MEDS: POLYETHYL GLY 3350 17 GM/DOSE PO SCH ×4 (07:57→20:11)
[2019-07-12] MEDS: IPRATROPIUM 200 PUFF/12.9 GM INH IH SCH ×2 (08:00→20:10)
--- NOTE | 2019-07-12 14:44 | FAST ---
SHIFT START DATE/TIME: 07/12/2019 07:00 (CDT) SHIFT END DATE/TIME: 07/12/2019 19:00 (CDT) NAME YAMILKA GIORDANO DATE OF : 1935 DATE OF ADMISSION: 07/09/2019 18:23 (CDT) PHONE: AGE: 84 N# [id number] GENDER: Female ENCOUNTER PHYSICIAN: Dr. Ryan Medina M.D. ADMISSION DIAGNOSIS: - Debility 16 - Debility (16) BOWEL RESECTION/BOWEL OBSTRUCTION. EATING: EATING - STEP 1: Does the patient complete the activity by him/herself with no assistance (physical, verbal/nonverbal cueing, setup/clean-up)? No. EATING - STEP 2: Does the patient need only setup/clean-up assistance from one helper? No. EATING - STEP 3: Does the patient need only verbal/nonverbal cueing or touching/steadying/contact guard assistance fro m one helper? Yes. 1. [id number] ADMISSION PERFORMANCE: Supervision or touching assistance CODE: 04 ORAL HYGIENE: ORAL HYGIENE - STEP 1: Does the patient complete the activity by him/herself with no assistance (physical, verbal/nonverbal cueing, setup/clean-up)? No. ORAL HYGIENE - STEP 2: Does the patient need only setup/clean-up assistance from one helper? Yes. 1. [id number] ADMISSION PERFORMANCE: Setup or clean-up assistance CODE: 05 TOILETING HYGIENE: TOILETING HYGIENE - STEP 1: Does the patient complete the activity by him/herself with no assistance (physical, verbal/nonverbal cueing, setup/clean-up)? No. TOILETING HYGIENE - STEP 2: Does the patient need only setup/clean-up assistance from one helper? No. TOILETING HYGIENE - STEP 3: Does the patient need only verbal/nonverbal cueing or touching/steadying/contact guard assistance fro m one helper? No. TOILETING HYGIENE - STEP 4: Does the patient need physical assistance - for example lifting or trunk support from one helper - wi th the helper providing less than half of the effort? No. TOILETING HYGIENE - STEP 5: Does the patient need physical assistance - for example lifting or trunk support from one helper - wi th the helper providing more than half of the effort? Yes. 1. [id number] ADMISSION PERFORMANCE: Substantial/maximal assistance CODE: 02 BATHING: Not assessed/no information CODE: - DRESSING - UPPER BODY: Not assessed/no information CODE: - DRESSING - LOWER BODY: Not assessed/no information CODE: - PUTTING ON/TAKING OFF FOOTWEAR: FOOTWEAR - STEP 1: Does the patient complete the activity by him/herself with no assistance (physical, verbal/nonverbal cueing, setup/clean-up)? No. FOOTWEAR - STEP 2: Does the patient need only setup/clean-up assistance from one helper? No. FOOTWEAR - STEP 3: Does the patient need only verbal/nonverbal cueing or touching/steadying/contact guard assistance fro m one helper? No. FOOTWEAR - STEP 4: Does the patient need physical assistance - for example lifting or trunk support from one helper - wi th the helper providing less than half of the effort? Yes. 1. [id number] ADMISSION PERFORMANCE: Partial/moderate assistance CODE: 03 ROLL LEFT AND RIGHT: ROLL LEFT AND RIGHT - STEP 1: Does the patient complete the activity by him/herself with no assistance (physical, verbal/nonverbal cueing, setup/clean-up)? No. ROLL LEFT AND RIGHT - STEP 2: Does the patient need only setup/clean-up assistance from one helper? No. ROLL LEFT AND RIGHT - STEP 3: Does the patient need only verbal/nonverbal cueing or touching/steadying/contact guard assistance fro m one helper? No. ROLL LEFT AND RIGHT - STEP 4: Does the patient need physical assistance - for example lifting or trunk support from one helper - wi th the helper providing less than half of the effort? Yes. 1. [id number] ADMISSION PERFORMANCE: Partial/moderate assistance CODE: 03 SIT TO LYING: SIT TO LYING - STEP 1: Does the patient complete the activity by him/herself with no assistance (physical, verbal/nonverbal cueing, setup/clean-up)? No. SIT TO LYING - STEP 2: Does the patient need only setup/clean-up assistance from one helper? No. SIT TO LYING - STEP 3: Does the patient need only verbal/nonverbal cueing or touching/steadying/contact guard assistance fro m one helper? No. SIT TO LYING - STEP 4: Does the patient need physical assistance - for example lifting or trunk support from one helper - wi th the helper providing less than half of the effort? Yes. 1. [id number] ADMISSION PERFORMANCE: Partial/moderate assistance CODE: 03 LYING TO SITTING: LYING TO SITTING ON SIDE OF BED - STEP 1: Does the patient complete the activity by him/herself with no assistance (physical, verbal/nonverbal cueing, setup/clean-up)? No. LYING TO SITTING ON SIDE OF BED - STEP 2: Does the patient need only setup/clean-up assistance from one helper? No. LYING TO SITTING ON SIDE OF BED - STEP 3: Does the patient need only verbal/nonverbal cueing or touching/steadying/contact guard assistance fro m one helper? No. LYING TO SITTING ON SIDE OF BED - STEP 4: Does the patient need physical assistance - for example lifting or trunk support from one helper - wi th the helper providing less than half of the effort? Yes. 1. [id number] ADMISSION PERFORMANCE: Partial/moderate assistance CODE: 03 SIT TO STAND: SIT TO STAND - STEP 1: Does the patient complete the activity by him/herself with no assistance (physical, verbal/nonverbal cueing, setup/clean-up)? No. SIT TO STAND - STEP 2: Does the patient need only setup/clean-up assistance from one helper? No. SIT TO STAND - STEP 3: Does the patient need only verbal/nonverbal cueing or touching/steadying/contact guard assistance fro m one helper? No. SIT TO STAND - STEP 4: Does the patient need physical assistance - for example lifting or trunk support from one helper - wi th the helper providing less than half of the effort? Yes. 1. [id number] ADMISSION PERFORMANCE: Partial/moderate assistance CODE: 03 TRANSFERS: BED, CHAIR: CHAIR/[id number] TRANSFER - STEP 1: Does the patient complete the activity by him/herself with no assistance (physical, verbal/nonverbal cueing, setup/clean-up)? No. CHAIR/[id number] TRANSFER - STEP 2: Does the patient need only setup/clean-up assistance from one helper? No. CHAIR/[id number] TRANSFER - STEP 3: Does the patient need only verbal/nonverbal cueing or touching/steadying/contact guard assistance fro m one helper? No. CHAIR/[id number] TRANSFER - STEP 4: Does the patient need physical assistance - for example lifting or trunk support from one helper - wi th the helper providing less than half of the effort? Yes. 1. [id number] ADMISSION PERFORMANCE: Partial/moderate assistance CODE: 03 TRANSFER TOILET: TOILET TRANSFER - STEP 1: Does the patient complete the activity by him/herself with no assistance (physical, verbal/nonverbal cueing, setup/clean-up)? No. TOILET TRANSFER - STEP 2: Does the patient need only setup/clean-up assistance from one helper? No. TOILET TRANSFER - STEP 3: Does the patient need only verbal/nonverbal cueing or touching/steadying/contact guard assistance fro m one helper? No. TOILET TRANSFER - STEP 4: Does the patient need physical assistance - for example lifting or trunk support from one helper - wi th the helper providing less than half of the effort? Yes. 1. [id number] ADMISSION PERFORMANCE: Partial/moderate assistance CODE: 03 TRANSFERS: CAR: Not assessed/no information CODE: - WALK 10 FEET: Not assessed/no information CODE: - 1 STEP (CURB): Not assessed/no information CODE: - PICKING UP OBJECT: Not assessed/no information CODE: - DOES THE PATIENT USE A WHEELCHAIR/SCOOTER? Q1. DOES THE PATIENT USE A WHEELCHAIR/SCOOTER?: Yes CODE: 1 WHEEL 50 FEET WITH TWO TURNS: WHEEL 50 FEET WITH TWO TURNS - STEP 1: Does the patient complete the activity by him/herself with no assistance (physical, verbal/nonverbal cueing, setup/clean-up)? No. WHEEL 50 FEET WITH TWO TURNS - STEP 2: Does the patient need only setup/clean-up assistance from one helper? No. WHEEL 50 FEET WITH TWO TURNS - STEP 3: Does the patient need only verbal/nonverbal cueing or touching/steadying/contact guard assistance fro m one helper? No. WHEEL 50 FEET WITH TWO TURNS - STEP 4: Does the patient need physical assistance - for example lifting or trunk support from one helper - wi th the helper providing less than half of the effort? Yes. 1. [id number] ADMISSION PERFORMANCE: Partial/moderate assistance CODE: 03 INDICATE THE TYPE OF WHEELCHAIR/SCOOTER USED: RR1. INDICATE THE TYPE OF WHEELCHAIR/SCOOTER USED.: Manual CODE: 1 WHEEL 150 FEET: WHEEL 150 FEET - STEP 1: Does the patient complete the activity by him/herself with no assistance (physical, verbal/nonverbal cueing, setup/clean-up)? No. WHEEL 150 FEET - STEP 2: Does the patient need only setup/clean-up assistance from one helper? No. WHEEL 150 FEET - STEP 3: Does the patient need only verbal/nonverbal cueing or touching/steadying/contact guard assistance fro m one helper? No. WHEEL 150 FEET - STEP 4: Does the patient need physical assistance - for example lifting or trunk support from one helper - wi th the helper providing less than half of the effort? Yes. 1. [id number] ADMISSION PERFORMANCE: Partial/moderate assistance CODE: 03 INDICATE THE TYPE OF WHEELCHAIR/SCOOTER USED: SS1. INDICATE THE TYPE OF WHEELCHAIR/SCOOTER USED.: Manual CODE: 1 BLADDER AND BOWEL: H350. BLADDER CONTINENCE (3-DAY ASSESSMENT PERIOD): Not applicable (e.g., indwelling catheter) CODE: 9 H400. BOWEL CONTINENCE (3-DAY ASSESSMENT PERIOD): Occasionally incontinent (one episode of bowel incontinence) CODE: 1 SIGNATURE PANEL: The following modified sections: 1. [id number] Admission Performance, 1. [id number] Admission Performance, 1. BV1599E Admission Performance, 1. IU2345k Admission Performance, 1. DC8933r Admission Performance, 1. [id number] Admission Performance, 1. BI6945E Admission Performance, 1. [id number] Admission Performance , 1. [id number] Admission Performance, 1. PI6504A Admission Performance, 1. [id number] Admission Performanc e, Q1. Does the patient use a wheelchair/scooter?, 1. PI2963R Admission Performance, 1. [id number] Admis karen Performance, 1. WS8912C Admission Performance, 1. [id number] Admission Performance, 1. ST1410T Admi ssion Performance, 1. [id number] Admission Performance, RR1. Indicate the type of wheelchair/scooter use d., 1. SO1882H Admission Performance, Code, SS1. Indicate the type of wheelchair/scooter used., H400. Bowel Continence (3-day assessment period), H350. Bladder Continence (3-day assessment period) were [electronically] signed by Adriana Lee C.N.A. on SatJul 12 2019 14:43:49 [id number] ([facility])
[2019-07-12] MEDS: ACETAMINOPHEN 325 MG TABLET PO PRN (20:10)
[2019-07-13] MEDS: METOPROLOL TAR 25 MG TAB PO SCH ×2 (05:13→16:36)
[2019-07-13] MEDS: ENOXAPARIN 30 MG/0.3 ML SQ SCH (06:33)
[2019-07-13] MEDS: INSULIN -REGULAR HUMAN 50 UNIT/0.5 ML ML SQ SCH ×4 (07:30→21:00)
[2019-07-13] MEDS: POLYETHYL GLY 3350 17 GM/DOSE PO SCH ×2 (08:00→21:51)
[2019-07-13] MEDS: ENSURE ENLIVE 237 ML CAN PO SCH ×2 (08:00→21:53)
[2019-07-13] MEDS: THIAMINE HCL 100 MG TABLET PO SCH (08:34)
[2019-07-13] MEDS: IPRATROPIUM 200 PUFF/12.9 GM INH IH SCH (08:34)
[2019-07-13] MEDS: FE SULF/FA/VIT B COMP & C TAB PO SCH (08:34)
[2019-07-13] MEDS: TAMSULOSIN 0.4 MG SR CAP PO SCH (08:35)
[2019-07-13] MEDS: LACTOBACILLUS/ACIDOPHILUS TAB PO SCH (08:35)
[2019-07-13] MEDS: PANTOPRAZOLE 40MG TABLET PO SCH ×2 (08:35→16:37)
[2019-07-13] MEDS: SMZ./TMP. 800/160 MG TABLET PO SCH (08:36)
[2019-07-13] MEDS: LIDOCAINE 4% PATCH TOP SCH (09:10)
[2019-07-13] MEDS: ACETAMINOPHEN 325 MG TABLET PO PRN ×2 (09:11→21:52)
--- NOTE | 2019-07-13 18:47 | R.PN ---
ENCOUNTER DATE AND TIME: 07/13/2019 18:41 (CDT) NAME YAMILKA GIORDANO DATE OF : 1935 DATE OF ADMISSION: 07/09/2019 18:23 (CDT) BOWEL RESECTION/BOWEL OBSTRUCTIONCHIEF COMPLAINT: Debility after bowel resection. SUBJECTIVE: Pt denied any depression. Pt denied any Shortness of Breath. Glucose 86 to 113. Therapeutic exercises done with moderate assistance. VITAL SIGNS Temperature: 98.7 F SBP/DBP: 113/67 Pulse: 71 Resp: 16 MEDICATION ALLERGIES: No Known Drug Allergies (NKDA) ENVIRONMENTAL ALLERGIES: - Substance Allergies None Known - Other Allergies None Known NURSING: - Shower allowing shower ACTIVITIES OOB only with supervision THERAPIES: - Dietary and Nutrition Adequate Nutrition. Nutritional Education. Nutritional Supplements. PHYSICAL EXAM - Gen Alert and awake Lying in bed No apparent distress Oriented to: person, time, and place - Skin No skin breakdown. Normacephalic - Eyes No abnormalities - ENMT No abnormalities - Neck No abnormalities - CVS RRR - Chest No abnormalities - Resp Clear to auscultation - Abd Soft - GI Non distended Deferred - No abnormalities - Ext No significant edema - MSK Unremarkable - Neuro No focal deficits - Psych No abnormalities ASSESSMENT: Pt. is a 84 yo Right-handed white female.On 05/25/2019 she was admitted to [facility] with diagnosis BOW EL RESECTION/BOWEL OBSTRUCTION.Her impairment category is Debility 16 - Debility (16).Pre-morbidly, Pt. was independent/mod-I in Locomotion, Transfers Control, Self-Care, and Endurance; and she had goo d Safety Awareness, Social Cognition, Sphincter Control, Communication, Endurance, and Balance.Curren tly, she has deficits of Locomotion, Balance, Transfers Control, Self-Care, Endurance, Safety Awarene ss, Social Cognition, and Sphincter Control.Pt. is now referred to [facility] for acute in-patient rehabilitation in order to maximize patient's functional independence in activit ies of daily living, strength, ROM, and mobility.- Rehab Goal Patient has realistic goal of being discharged at assistance level 6-Odell to reside at Home with Fam martha/Relatives. MDM/PLAN: - Physical Therapy Gait dysfunction - to improve, our physical therapists will perform initial evaluation of pt's statu s upon admission and devise an individualized program for Gait Training, and Wheel Chair mobility Inability to transfer - to improve, our physical therapists will perform initial evaluation of pt's status upon admission and devise an individualized program for Bed mobility Need for home safety evaluation - to improve, our physical therapists will perform initial evaluatio n of pt's status upon admission and devise an individualized program for Home Evaluation Need in caregiver upon discharge - to improve, our physical therapists will perform initial evaluati on of pt's status upon admission and devise an individualized program for Caregiver Training Edema - to improve, our physical therapists will perform initial evaluation of pt's status upon admis karen and devise an individualized program for Elevation Training, and Lymphedema Therapy New precaution - to improve, our physical therapists will perform initial evaluation of pt's status upon admission and devise an individualized program for Patient precaution education Poor balance - to improve, our physical therapists will perform initial evaluation of pt's status up on admission and devise an individualized program for Balance Training Poor endurance - to improve, our physical therapists will perform initial evaluation of pt's status upon admission and devise an individualized program for Endurance Training Weakness - to improve, our physical therapists will perform initial evaluation of pt's status upon a dmission and devise an individualized program for Aquatic Therapy, Neuromuscular Reeducation, and Str engthening Achieving independence - to improve, our physical therapists will perform initial evaluation of pt's status upon admission and devise an individualized program for Community Reintegration Activities - Occupational Therapy ADL deficits - to improve, our occupation therapists will perform initial evaluation of pt's status upon admission and devise an individualized program for Bathing, Bed mobility, Community Reintegratio n, Cooking, Dressing, Eating, Fine Motor Skills, Grooming, Homemaking, Kitchen Mobility, Laundry, Pat ient Education, Safety Awareness, Splinting - Positioning, Transfers(Toilet, Tub, Shower), and Wheel Chair Management Cognitive deficits - to improve, our occupation therapists will perform initial evaluation of pt's s tatus upon admission and devise an individualized program for Cognition - orientation Need for transitional care manager - to improve, our occupation therapists will perform initial evaluation of pt's status upon admission and devise an individualized program for Caregiver Training Weakness - to improve, our occupation therapists will perform initial evaluation of pt's status upon admission and devise an individualized program for Aquatic Therapy, Balance, Endurance, UE ROM, and UE strengthening - Other See attached MAR (Medication Administration Record) - Diet Type Continue Regular - Diet - Liquid Texture Continue Regular - Tube Feed Continue N/A - Diet - Solid Texture Continue Regular - Shower allowing shower FUNCTIONAL STATUS: - Self-Care A. Eating [place] B. Grooming sup C. Bathing modA D. Dressing - [place] E. Dressing - Lower modA F. Toileting modA - Sphincter Control G. Bladder control [place] H. Bowel control [place] - Transfers Control I. Bed/Chair/Wheelchair modA J. Toilet modA K. Tub/Shower modA - Locomotion L. Walk/Wheelchair (B) modA M. Stairs Dep - Communication N. Comprehension (B) sup O. Expression (B) sup - Social Cognition P. Social Interaction [place] Q. Problem Solving modA R. Memory [place] - Endurance Fair - Balance Fair - Safety Awareness Fair QI SCORES: - Self-Care A. Eating 05-Setup or clean-up assistance B. Oral hygiene 05-Setup or clean-up assistance C. Toileting hygiene 01-Dependent E. Shower/bathe self 03-Partial/moderate assistance F. Upper body dressing 04-Supervision or touching assistance G. Lower body dressing 03-Partial/moderate assistance H. Putting on/taking off footwear 02-Substantial/maximal assistance - Mobility A. Roll left and right 04-Supervision or touching assistance B. Sit to lying 04-Supervision or touching assistance C. Lying to sitting on side of bed 04-Supervision or touching assistance D. Sit to stand 04-Supervision or touching assistance E. Chair/pbe-jx-gpyks transfer 04-Supervision or touching assistance F. Toilet transfer 04-Supervision or touching assistance G. Car transfer 88-Not attempted due to medical condition or safety concerns I. Walk 10 feet 03-Partial/moderate assistance E. Chair/bdu-kl-ihvjt transfer 03-Partial/moderate assistance K. Walk 150 feet 88-Not attempted due to medical condition or safety concerns L. Walking 10 feet on uneven surfaces 88-Not attempted due to medical condition or safety concerns M. 1 step (curb) 88-Not attempted due to medical condition or safety concerns N. 4 steps 88-Not attempted due to medical condition or safety concerns O. 12 steps 88-Not attempted due to medical condition or safety concerns P. Picking up object 88-Not attempted due to medical condition or safety concerns R. Wheel 50 feet with two turns S. Wheel 150 feet - Bladder and Bowel Bladder continence 4-Always incontinent Bowel continence 9-Not rated - Endurance Poor - Balance Poor - Safety Awareness Poor CURRENT FUNC. DEFICITS: Self-Care, Mobility, Endurance, Balance, and Safety Awareness SIGNATURE PANEL: (CDT)
[2019-07-13] MEDS: AMOX/K CLAV 500 MG TAB PO SCH (21:52)
[2019-07-14] MEDS: METOPROLOL TAR 25 MG TAB PO SCH ×2 (05:26→16:40)
[2019-07-14] MEDS: INSULIN -REGULAR HUMAN 50 UNIT/0.5 ML ML SQ SCH ×2 (07:30→11:30)
[2019-07-14] MEDS: POLYETHYL GLY 3350 17 GM/DOSE PO SCH ×2 (08:00→20:00)
[2019-07-14] MEDS: FE SULF/FA/VIT B COMP & C TAB PO SCH (08:00)
[2019-07-14] MEDS: IPRATROPIUM 200 PUFF/12.9 GM INH IH SCH ×3 (08:00→20:23)
[2019-07-14] MEDS: ENOXAPARIN 30 MG/0.3 ML SQ SCH (08:00)
[2019-07-14] MEDS: ENSURE ENLIVE 237 ML CAN PO SCH ×2 (08:00→20:25)
[2019-07-14] MEDS: PANTOPRAZOLE 40MG TABLET PO SCH ×2 (08:37→15:31)
[2019-07-14] MEDS: LIDOCAINE 4% PATCH TOP SCH (08:37)
[2019-07-14] MEDS: TAMSULOSIN 0.4 MG SR CAP PO SCH (08:38)
[2019-07-14] MEDS: THIAMINE HCL 100 MG TABLET PO SCH (08:38)
[2019-07-14] MEDS: AMOX/K CLAV 500 MG TAB PO SCH ×2 (08:38→20:23)
[2019-07-14] MEDS: LACTOBACILLUS/ACIDOPHILUS TAB PO SCH (08:38)
[2019-07-14] MEDS: ACETAMINOPHEN 325 MG TABLET PO PRN ×2 (08:39→20:24)
--- NOTE | 2019-07-14 12:10 | FAST ---
ENCOUNTER DATE AND TIME: 07/14/2019 08:00 (CDT) NAME YAMILKA GIORDANO DATE OF : 1935 DATE OF ADMISSION: 07/09/2019 18:23 (CDT) PHONE: AGE: 84 N# [id number] GENDER: Female ENCOUNTER PHYSICIAN: Dr. Ryan Medina M.D. ADMISSION DIAGNOSIS: - Debility 16 - Debility (16) BOWEL RESECTION/BOWEL OBSTRUCTION. EATING: Not assessed/no information CODE: - ORAL HYGIENE: ORAL HYGIENE - STEP 1: Does the patient complete the activity by him/herself with no assistance (physical, verbal/nonverbal cueing, setup/clean-up)? No. ORAL HYGIENE - STEP 2: Does the patient need only setup/clean-up assistance from one helper? No. ORAL HYGIENE - STEP 3: Does the patient need only verbal/nonverbal cueing or touching/steadying/contact guard assistance fro m one helper? Yes. 1. [id number] ADMISSION PERFORMANCE: Supervision or touching assistance CODE: 04 TOILETING HYGIENE: Not assessed/no information CODE: - BATHING: SHOWER/BATHE SELF - STEP 1: Does the patient complete the activity by him/herself with no assistance (physical, verbal/nonverbal cueing, setup/clean-up)? No. SHOWER/BATHE SELF - STEP 2: Does the patient need only setup/clean-up assistance from one helper? No. SHOWER/BATHE SELF - STEP 3: Does the patient need only verbal/nonverbal cueing or touching/steadying/contact guard assistance fro m one helper? Yes. 1. [id number] ADMISSION PERFORMANCE: Supervision or touching assistance CODE: 04 DRESSING - UPPER BODY: DRESSING - UPPER BODY - STEP 1: Does the patient complete the activity by him/herself with no assistance (physical, verbal/nonverbal cueing, setup/clean-up)? No. DRESSING - UPPER BODY - STEP 2: Does the patient need only setup/clean-up assistance from one helper? Yes. 1. [id number] ADMISSION PERFORMANCE: Setup or clean-up assistance CODE: 05 DRESSING - LOWER BODY: DRESSING - LOWER BODY - STEP 1: Does the patient complete the activity by him/herself with no assistance (physical, verbal/nonverbal cueing, setup/clean-up)? No. DRESSING - LOWER BODY - STEP 2: Does the patient need only setup/clean-up assistance from one helper? No. DRESSING - LOWER BODY - STEP 3: Does the patient need only verbal/nonverbal cueing or touching/steadying/contact guard assistance fro m one helper? No. DRESSING - LOWER BODY - STEP 4: Does the patient need physical assistance - for example lifting or trunk support from one helper - wi th the helper providing less than half of the effort? No. DRESSING - LOWER BODY - STEP 5: Does the patient need physical assistance - for example lifting or trunk support from one helper - wi th the helper providing more than half of the effort? Yes. 1. [id number] ADMISSION PERFORMANCE: Substantial/maximal assistance CODE: 02 PUTTING ON/TAKING OFF FOOTWEAR: FOOTWEAR - STEP 1: Does the patient complete the activity by him/herself with no assistance (physical, verbal/nonverbal cueing, setup/clean-up)? No. FOOTWEAR - STEP 2: Does the patient need only setup/clean-up assistance from one helper? No. FOOTWEAR - STEP 3: Does the patient need only verbal/nonverbal cueing or touching/steadying/contact guard assistance fro m one helper? No. FOOTWEAR - STEP 4: Does the patient need physical assistance - for example lifting or trunk support from one helper - wi th the helper providing less than half of the effort? No. FOOTWEAR - STEP 5: Does the patient need physical assistance - for example lifting or trunk support from one helper - wi th the helper providing more than half of the effort? Yes. 1. [id number] ADMISSION PERFORMANCE: Substantial/maximal assistance CODE: 02 DOES THE PATIENT USE A WHEELCHAIR/SCOOTER? CODE: EXPR INDICATE THE TYPE OF WHEELCHAIR/SCOOTER USED: CODE: EXPR INDICATE THE TYPE OF WHEELCHAIR/SCOOTER USED: CODE: EXPR BLADDER AND BOWEL: CODE: EXPR CODE: EXPR SIGNATURE PANEL: The following modified sections: 1. [id number] Admission Performance, 1. [id number] Admission Performance, 1. [id number] Admission Performance, 1. DH8083e Admission Performance, 1. JK9067i Admission Performance were [electronically] signed by EDD Morejon on SatJul 14 2019 12:09:20 [place] [id number] (Central Daylight Time)
--- NOTE | 2019-07-14 14:41 | R.PN ---
ENCOUNTER DATE AND TIME: 07/14/2019 14:15 (CDT) NAME YAMILKA GIORDANO DATE OF : 1935 DATE OF ADMISSION: 07/09/2019 18:23 (CDT) BOWEL RESECTION/BOWEL OBSTRUCTIONCHIEF COMPLAINT: Debility after bowel resection. SUBJECTIVE: Pt denied any depression. Pt denied any Shortness of Breath. Glucose 81 to 124. Will d/c repeat blood sugars. Therapeutic exercises done with moderate assistance. She denies pain or any new complaints. She is doing well with physical therapy. VITAL SIGNS Temperature: 97.9 F SBP/DBP: 121/61 Pulse: 69 Resp: 18 MEDICATION ALLERGIES: No Known Drug Allergies (NKDA) ENVIRONMENTAL ALLERGIES: - Substance Allergies None Known - Other Allergies None Known NURSING: - Shower allowing shower ACTIVITIES OOB only with supervision THERAPIES: - Dietary and Nutrition Adequate Nutrition. Nutritional Education. Nutritional Supplements. PHYSICAL EXAM - Gen Alert and awake Lying in bed No apparent distress Oriented to: person, time, and place - Skin No skin breakdown. Normacephalic - Eyes No abnormalities - ENMT No abnormalities - Neck No abnormalities - CVS RRR - Chest No abnormalities - Resp Clear to auscultation - Abd Soft - GI Non distended Deferred - No abnormalities - Ext No significant edema - MSK Unremarkable - Neuro No focal deficits - Psych No abnormalities ASSESSMENT: Pt. is a 84 yo Right-handed white female.On 05/25/2019 she was admitted to [facility] with diagnosis BOW EL RESECTION/BOWEL OBSTRUCTION.Her impairment category is Debility 16 - Debility (16).Pre-morbidly, Pt. was independent/mod-I in Locomotion, Transfers Control, Self-Care, and Endurance; and she had goo d Safety Awareness, Social Cognition, Sphincter Control, Communication, Endurance, and Balance.Curren tly, she has deficits of Locomotion, Balance, Transfers Control, Self-Care, Endurance, Safety Awarene ss, Social Cognition, and Sphincter Control.Pt. is now referred to [facility] for acute in-patient rehabilitation in order to maximize patient's functional independence in activit ies of daily living, strength, ROM, and mobility.- Rehab Goal Patient has realistic goal of being discharged at assistance level 6-Odell to reside at Home with Fam martha/Relatives. MDM/PLAN: - Physical Therapy Gait dysfunction - to improve, our physical therapists will perform initial evaluation of pt's statu s upon admission and devise an individualized program for Gait Training, and Wheel Chair mobility Inability to transfer - to improve, our physical therapists will perform initial evaluation of pt's status upon admission and devise an individualized program for Bed mobility Need for home safety evaluation - to improve, our physical therapists will perform initial evaluatio n of pt's status upon admission and devise an individualized program for Home Evaluation Need in caregiver upon discharge - to improve, our physical therapists will perform initial evaluati on of pt's status upon admission and devise an individualized program for Caregiver Training Edema - to improve, our physical therapists will perform initial evaluation of pt's status upon admi ssion and devise an individualized program for Elevation Training, and Lymphedema Therapy New precaution - to improve, our physical therapists will perform initial evaluation of pt's status upon admission and devise an individualized program for Patient precaution education Poor balance - to improve, our physical therapists will perform initial evaluation of pt's status up on admission and devise an individualized program for Balance Training Poor endurance - to improve, our physical therapists will perform initial evaluation of pt's status upon admission and devise an individualized program for Endurance Training Weakness - to improve, our physical therapists will perform initial evaluation of pt's status upon a dmission and devise an individualized program for Aquatic Therapy, Neuromuscular Reeducation, and Str engthening Achieving independence - to improve, our physical therapists will perform initial evaluation of pt's status upon admission and devise an individualized program for Community Reintegration Activities - Occupational Therapy ADL deficits - to improve, our occupation therapists will perform initial evaluation of pt's status upon admission and devise an individualized program for Bathing, Bed mobility, Community Reintegratio n, Cooking, Dressing, Eating, Fine Motor Skills, Grooming, Homemaking, Kitchen Mobility, Laundry, Pat ient Education, Safety Awareness, Splinting - Positioning, Transfers(Toilet, Tub, Shower), and Wheel Chair Management Cognitive deficits - to improve, our occupation therapists will perform initial evaluation of pt's s tatus upon admission and devise an individualized program for Cognition - orientation Need for home care aide - to improve, our occupation therapists will perform initial evaluation of pt's status upon admission and devise an individualized program for Caregiver Training Weakness - to improve, our occupation therapists will perform initial evaluation of pt's status upon admission and devise an individualized program for Aquatic Therapy, Balance, Endurance, UE ROM, and UE strengthening - Other See attached MAR (Medication Administration Record) - Diet Type Continue Regular - Diet - Liquid Texture Continue Regular - Tube Feed Continue N/A - Diet - Solid Texture Continue Regular - Shower allowing shower FUNCTIONAL STATUS: - Self-Care A. Eating [place] B. Grooming sup C. Bathing modA D. Dressing - [place] E. Dressing - Lower modA F. Toileting modA - Sphincter Control G. Bladder control [place] H. Bowel control [place] - Transfers Control I. Bed/Chair/Wheelchair modA J. Toilet modA K. Tub/Shower modA - Locomotion L. Walk/Wheelchair (B) modA M. Stairs Dep - Communication N. Comprehension (B) sup O. Expression (B) sup - Social Cognition P. Social Interaction [place] Q. Problem Solving modA R. Memory [place] - Endurance Fair - Balance Fair - Safety Awareness Fair QI SCORES: - Self-Care A. Eating 05-Setup or clean-up assistance B. Oral hygiene 05-Setup or clean-up assistance C. Toileting hygiene 01-Dependent E. Shower/bathe self 03-Partial/moderate assistance F. Upper body dressing 04-Supervision or touching assistance G. Lower body dressing 03-Partial/moderate assistance H. Putting on/taking off footwear 02-Substantial/maximal assistance - Mobility A. Roll left and right 04-Supervision or touching assistance B. Sit to lying 04-Supervision or touching assistance C. Lying to sitting on side of bed 04-Supervision or touching assistance D. Sit to stand 04-Supervision or touching assistance E. Chair/trp-gt-yifpj transfer 04-Supervision or touching assistance F. Toilet transfer 04-Supervision or touching assistance G. Car transfer 88-Not attempted due to medical condition or safety concerns I. Walk 10 feet 03-Partial/moderate assistance E. Chair/ybg-eb-pieor transfer 03-Partial/moderate assistance K. Walk 150 feet 88-Not attempted due to medical condition or safety concerns L. Walking 10 feet on uneven surfaces 88-Not attempted due to medical condition or safety concerns M. 1 step (curb) 88-Not attempted due to medical condition or safety concerns N. 4 steps 88-Not attempted due to medical condition or safety concerns O. 12 steps 88-Not attempted due to medical condition or safety concerns P. Picking up object 88-Not attempted due to medical condition or safety concerns R. Wheel 50 feet with two turns S. Wheel 150 feet - Bladder and Bowel Bladder continence 4-Always incontinent Bowel continence 9-Not rated - Endurance Poor - Balance Poor - Safety Awareness Poor CURRENT FUNC. DEFICITS: Self-Care, Mobility, Endurance, Balance, and Safety Awareness SIGNATURE PANEL: (CDT)
[2019-07-15] MEDS: METOPROLOL TAR 25 MG TAB PO SCH ×2 (05:18→17:05)
[2019-07-15] MEDS: ENOXAPARIN 30 MG/0.3 ML SQ SCH (07:10)
[2019-07-15] MEDS: PANTOPRAZOLE 40MG TABLET PO SCH ×2 (07:10→16:31)
[2019-07-15] MEDS: ENSURE ENLIVE 237 ML CAN PO SCH ×2 (08:00→20:00)
[2019-07-15] MEDS: POLYETHYL GLY 3350 17 GM/DOSE PO SCH ×2 (08:00→20:00)
[2019-07-15] MEDS: IPRATROPIUM 200 PUFF/12.9 GM INH IH SCH ×2 (08:25→20:39)
[2019-07-15] MEDS: LIDOCAINE 4% PATCH TOP SCH (08:26)
[2019-07-15] MEDS: TAMSULOSIN 0.4 MG SR CAP PO SCH (08:27)
[2019-07-15] MEDS: THIAMINE HCL 100 MG TABLET PO SCH (08:27)
[2019-07-15] MEDS: AMOX/K CLAV 500 MG TAB PO SCH ×2 (08:27→20:39)
[2019-07-15] MEDS: LACTOBACILLUS/ACIDOPHILUS TAB PO SCH (08:27)
[2019-07-15] MEDS: FE SULF/FA/VIT B COMP & C TAB PO SCH (08:28)
--- NOTE | 2019-07-15 15:32 | R.PN ---
ENCOUNTER DATE AND TIME: 07/15/2019 15:27 (CDT) NAME YAMILKA GIORDANO DATE OF : 1935 DATE OF ADMISSION: 07/09/2019 18:23 (CDT) BOWEL RESECTION/BOWEL OBSTRUCTIONCHIEF COMPLAINT: Debility after bowel resection. SUBJECTIVE: Pt denied any depression. Pt denied any Shortness of Breath. Glucose 81 to 124. Will d/c repeat blood sugars. Therapeutic exercises done with moderate assistance. She had nausea abdominal pains and 2 loose stools after breakfast earlier today. She feels better no w. VITAL SIGNS Temperature: 99.4 F SBP/DBP: 127/79 Pulse: 85 Resp: 16 MEDICATION ALLERGIES: No Known Drug Allergies (NKDA) ENVIRONMENTAL ALLERGIES: - Substance Allergies None Known - Other Allergies None Known NURSING: - Shower allowing shower ACTIVITIES OOB only with supervision THERAPIES: - Dietary and Nutrition Adequate Nutrition. Nutritional Education. Nutritional Supplements. PHYSICAL EXAM - Gen Alert and awake Lying in bed No apparent distress Oriented to: person, time, and place - Skin No skin breakdown. Normacephalic - Eyes No abnormalities - ENMT No abnormalities - Neck No abnormalities - CVS RRR - Chest No abnormalities - Resp Clear to auscultation - Abd Soft - GI Non distended Deferred - No abnormalities - Ext No significant edema - MSK Unremarkable - Neuro No focal deficits - Psych No abnormalities ASSESSMENT: Pt. is a 84 yo Right-handed white female.On 05/25/2019 she was admitted to [facility] with diagnosis BOW EL RESECTION/BOWEL OBSTRUCTION.Her impairment category is Debility 16 - Debility (16).Pre-morbidly, Pt. was independent/mod-I in Locomotion, Transfers Control, Self-Care, and Endurance; and she had goo d Safety Awareness, Social Cognition, Sphincter Control, Communication, Endurance, and Balance.Curren tly, she has deficits of Locomotion, Balance, Transfers Control, Self-Care, Endurance, Safety Awarene ss, Social Cognition, and Sphincter Control.Pt. is now referred to [facility] for acute in-patient rehabilitation in order to maximize patient's functional independence in activit ies of daily living, strength, ROM, and mobility.- Rehab Goal Patient has realistic goal of being discharged at assistance level 6-Odell to reside at Home with Fam martha/Relatives. MDM/PLAN: - Physical Therapy Gait dysfunction - to improve, our physical therapists will perform initial evaluation of pt's statu s upon admission and devise an individualized program for Gait Training, and Wheel Chair mobility Inability to transfer - to improve, our physical therapists will perform initial evaluation of pt's status upon admission and devise an individualized program for Bed mobility Need for home safety evaluation - to improve, our physical therapists will perform initial evaluatio n of pt's status upon admission and devise an individualized program for Home Evaluation Need in caregiver upon discharge - to improve, our physical therapists will perform initial evaluati on of pt's status upon admission and devise an individualized program for Caregiver Training Edema - to improve, our physical therapists will perform initial evaluation of pt's status upon admi ssion and devise an individualized program for Elevation Training, and Lymphedema Therapy New precaution - to improve, our physical therapists will perform initial evaluation of pt's status upon admission and devise an individualized program for Patient precaution education Poor balance - to improve, our physical therapists will perform initial evaluation of pt's status up on admission and devise an individualized program for Balance Training Poor endurance - to improve, our physical therapists will perform initial evaluation of pt's status upon admission and devise an individualized program for Endurance Training Weakness - to improve, our physical therapists will perform initial evaluation of pt's status upon a dmission and devise an individualized program for Aquatic Therapy, Neuromuscular Reeducation, and Str engthening Achieving independence - to improve, our physical therapists will perform initial evaluation of pt's status upon admission and devise an individualized program for Community Reintegration Activities - Occupational Therapy ADL deficits - to improve, our occupation therapists will perform initial evaluation of pt's status upon admission and devise an individualized program for Bathing, Bed mobility, Community Reintegratio n, Cooking, Dressing, Eating, Fine Motor Skills, Grooming, Homemaking, Kitchen Mobility, Laundry, Pat ient Education, Safety Awareness, Splinting - Positioning, Transfers(Toilet, Tub, Shower), and Wheel Chair Management Cognitive deficits - to improve, our occupation therapists will perform initial evaluation of pt's s tatus upon admission and devise an individualized program for Cognition - orientation Need for childcare center director - to improve, our occupation therapists will perform initial evaluation of pt's status upon admission and devise an individualized program for Caregiver Training Weakness - to improve, our occupation therapists will perform initial evaluation of pt's status upon admission and devise an individualized program for Aquatic Therapy, Balance, Endurance, UE ROM, and UE strengthening - Other See attached MAR (Medication Administration Record) - Diet Type Continue Regular - Diet - Liquid Texture Continue Regular - Tube Feed Continue N/A - Diet - Solid Texture Continue Regular - Shower allowing shower FUNCTIONAL STATUS: - Self-Care A. Eating [place] B. Grooming sup C. Bathing modA D. Dressing - [place] E. Dressing - Lower modA F. Toileting modA - Sphincter Control G. Bladder control [place] H. Bowel control [place] - Transfers Control I. Bed/Chair/Wheelchair modA J. Toilet modA K. Tub/Shower modA - Locomotion L. Walk/Wheelchair (B) modA M. Stairs Dep - Communication N. Comprehension (B) sup O. Expression (B) sup - Social Cognition P. Social Interaction [place] Q. Problem Solving modA R. Memory [place] - Endurance Fair - Balance Fair - Safety Awareness Fair QI SCORES: - Self-Care A. Eating 05-Setup or clean-up assistance B. Oral hygiene 05-Setup or clean-up assistance C. Toileting hygiene 01-Dependent E. Shower/bathe self 03-Partial/moderate assistance F. Upper body dressing 04-Supervision or touching assistance G. Lower body dressing 03-Partial/moderate assistance H. Putting on/taking off footwear 02-Substantial/maximal assistance - Mobility A. Roll left and right 04-Supervision or touching assistance B. Sit to lying 04-Supervision or touching assistance C. Lying to sitting on side of bed 04-Supervision or touching assistance D. Sit to stand 04-Supervision or touching assistance E. Chair/jyw-ks-ijbkk transfer 04-Supervision or touching assistance F. Toilet transfer 04-Supervision or touching assistance G. Car transfer 88-Not attempted due to medical condition or safety concerns I. Walk 10 feet 03-Partial/moderate assistance E. Chair/pye-oy-kzbxb transfer 03-Partial/moderate assistance K. Walk 150 feet 88-Not attempted due to medical condition or safety concerns L. Walking 10 feet on uneven surfaces 88-Not attempted due to medical condition or safety concerns M. 1 step (curb) 88-Not attempted due to medical condition or safety concerns N. 4 steps 88-Not attempted due to medical condition or safety concerns O. 12 steps 88-Not attempted due to medical condition or safety concerns P. Picking up object 88-Not attempted due to medical condition or safety concerns R. Wheel 50 feet with two turns S. Wheel 150 feet - Bladder and Bowel Bladder continence 4-Always incontinent Bowel continence 9-Not rated - Endurance Poor - Balance Poor - Safety Awareness Poor CURRENT FUNC. DEFICITS: Self-Care, Mobility, Endurance, Balance, and Safety Awareness SIGNATURE PANEL: (CDT)
[2019-07-15] MEDS: ACETAMINOPHEN 325 MG TABLET PO PRN (20:39)
[2019-07-16] MEDS: METOPROLOL TAR 25 MG TAB PO SCH ×3 (05:12→18:00)
[2019-07-16 06:11] LABS: Absolute Lymphocytes (CBC) 1.3 K/uL (0.7-4.9); Basophils % 0.8 % (0-1.3); Hematocrit 26.2 % (36.0-45.0); Lymphocytes % 21.3 % (15.3-44.8); MPV 9.2 fL (7.6-11.3); RBC Red Blood Cell Count 2.97 M/uL (3.86-4.86)
[2019-07-16 06:27] LABS: Albumin 2.1 g/dL (3.4-5.0); Potassium 4.4 mmol/L (3.5-5.1); Prealbumin 17.8 mg/dL (20-40)
[2019-07-16] MEDS: ENOXAPARIN 30 MG/0.3 ML SQ SCH (06:42)
[2019-07-16] MEDS: POLYETHYL GLY 3350 17 GM/DOSE PO SCH (08:00)
[2019-07-16] MEDS: PROMOD 30 ML DOSE PO SCH ×2 (08:00→20:04)
[2019-07-16] MEDS: ENSURE ENLIVE 237 ML CAN PO SCH ×2 (08:00→20:04)
[2019-07-16] MEDS: AMOX/K CLAV 500 MG TAB PO SCH ×2 (09:00→20:05)
[2019-07-16] MEDS: LACTOBACILLUS/ACIDOPHILUS TAB PO SCH (09:00)
[2019-07-16] MEDS: FE SULF/FA/VIT B COMP & C TAB PO SCH (09:01)
[2019-07-16] MEDS: THIAMINE HCL 100 MG TABLET PO SCH (09:01)
[2019-07-16] MEDS: TAMSULOSIN 0.4 MG SR CAP PO SCH (09:01)
[2019-07-16] MEDS: PANTOPRAZOLE 40MG TABLET PO SCH ×2 (09:01→16:51)
[2019-07-16] MEDS: IPRATROPIUM 200 PUFF/12.9 GM INH IH SCH ×2 (09:02→20:04)
[2019-07-16] MEDS ORDERED: POLYETHYL GLY 3350 17 GM/DOSE PO PRN (09:03)
[2019-07-16] MEDS: LIDOCAINE 4% PATCH TOP SCH (09:30)
--- NOTE | 2019-07-16 11:54 | FAST ---
SHIFT START DATE/TIME: 07/16/2019 07:00 (CDT) SHIFT END DATE/TIME: 07/16/2019 19:00 (CDT) NAME YAIMLKA GIORDANO DATE OF : 1935 DATE OF ADMISSION: 07/09/2019 18:23 (CDT) PHONE: AGE: 84 N# [id number] GENDER: Female ENCOUNTER PHYSICIAN: Dr. Ryan Medina M.D. ADMISSION DIAGNOSIS: - Debility 16 - Debility (16) BOWEL RESECTION/BOWEL OBSTRUCTION. EATING: EATING - STEP 1: Does the patient complete the activity by him/herself with no assistance (physical, verbal/nonverbal cueing, setup/clean-up)? No. EATING - STEP 2: Does the patient need only setup/clean-up assistance from one helper? No. EATING - STEP 3: Does the patient need only verbal/nonverbal cueing or touching/steadying/contact guard assistance fro m one helper? Yes. 1. [id number] ADMISSION PERFORMANCE: Supervision or touching assistance CODE: 04 ORAL HYGIENE: ORAL HYGIENE - STEP 1: Does the patient complete the activity by him/herself with no assistance (physical, verbal/nonverbal cueing, setup/clean-up)? No. ORAL HYGIENE - STEP 2: Does the patient need only setup/clean-up assistance from one helper? No. ORAL HYGIENE - STEP 3: Does the patient need only verbal/nonverbal cueing or touching/steadying/contact guard assistance fro m one helper? Yes. 1. [id number] ADMISSION PERFORMANCE: Supervision or touching assistance CODE: 04 TOILETING HYGIENE: TOILETING HYGIENE - STEP 1: Does the patient complete the activity by him/herself with no assistance (physical, verbal/nonverbal cueing, setup/clean-up)? No. TOILETING HYGIENE - STEP 2: Does the patient need only setup/clean-up assistance from one helper? No. TOILETING HYGIENE - STEP 3: Does the patient need only verbal/nonverbal cueing or touching/steadying/contact guard assistance fro m one helper? No. TOILETING HYGIENE - STEP 4: Does the patient need physical assistance - for example lifting or trunk support from one helper - wi th the helper providing less than half of the effort? Yes. 1. [id number] ADMISSION PERFORMANCE: Partial/moderate assistance CODE: 03 BATHING: Not assessed/no information CODE: - DRESSING - UPPER BODY: Not assessed/no information CODE: - DRESSING - LOWER BODY: Not assessed/no information CODE: - PUTTING ON/TAKING OFF FOOTWEAR: Not assessed/no information CODE: - ROLL LEFT AND RIGHT: Not assessed/no information CODE: - SIT TO LYING: Not assessed/no information CODE: - LYING TO SITTING: LYING TO SITTING ON SIDE OF BED - STEP 1: Does the patient complete the activity by him/herself with no assistance (physical, verbal/nonverbal cueing, setup/clean-up)? No. LYING TO SITTING ON SIDE OF BED - STEP 2: Does the patient need only setup/clean-up assistance from one helper? No. LYING TO SITTING ON SIDE OF BED - STEP 3: Does the patient need only verbal/nonverbal cueing or touching/steadying/contact guard assistance fro m one helper? Yes. 1. [id number] ADMISSION PERFORMANCE: Supervision or touching assistance CODE: 04 SIT TO STAND: SIT TO STAND - STEP 1: Does the patient complete the activity by him/herself with no assistance (physical, verbal/nonverbal cueing, setup/clean-up)? No. SIT TO STAND - STEP 2: Does the patient need only setup/clean-up assistance from one helper? No. SIT TO STAND - STEP 3: Does the patient need only verbal/nonverbal cueing or touching/steadying/contact guard assistance fro m one helper? Yes. 1. [id number] ADMISSION PERFORMANCE: Supervision or touching assistance CODE: 04 TRANSFERS: BED, CHAIR: CHAIR/[id number] TRANSFER - STEP 1: Does the patient complete the activity by him/herself with no assistance (physical, verbal/nonverbal cueing, setup/clean-up)? No. CHAIR/[id number] TRANSFER - STEP 2: Does the patient need only setup/clean-up assistance from one helper? No. CHAIR/[id number] TRANSFER - STEP 3: Does the patient need only verbal/nonverbal cueing or touching/steadying/contact guard assistance fro m one helper? Yes. 1. [id number] ADMISSION PERFORMANCE: Supervision or touching assistance CODE: 04 TRANSFER TOILET: TOILET TRANSFER - STEP 1: Does the patient complete the activity by him/herself with no assistance (physical, verbal/nonverbal cueing, setup/clean-up)? No. TOILET TRANSFER - STEP 2: Does the patient need only setup/clean-up assistance from one helper? No. TOILET TRANSFER - STEP 3: Does the patient need only verbal/nonverbal cueing or touching/steadying/contact guard assistance fro m one helper? Yes. 1. [id number] ADMISSION PERFORMANCE: Supervision or touching assistance CODE: 04 TRANSFERS: CAR: Not assessed/no information CODE: - WALK 10 FEET: Not assessed/no information CODE: - 1 STEP (CURB): Not assessed/no information CODE: - PICKING UP OBJECT: Not assessed/no information CODE: - DOES THE PATIENT USE A WHEELCHAIR/SCOOTER? CODE: EXPR WHEEL 50 FEET WITH TWO TURNS: Not assessed/no information CODE: - INDICATE THE TYPE OF WHEELCHAIR/SCOOTER USED: CODE: EXPR WHEEL 150 FEET: Not assessed/no information CODE: - INDICATE THE TYPE OF WHEELCHAIR/SCOOTER USED: CODE: EXPR BLADDER AND BOWEL: H350. BLADDER CONTINENCE (3-DAY ASSESSMENT PERIOD): Not applicable (e.g., indwelling catheter) CODE: 9 H400. BOWEL CONTINENCE (3-DAY ASSESSMENT PERIOD): Frequently incontinent (2 or more episodes of bowel incontinence, but at least one continent bowel mo vement) CODE: 2 SIGNATURE PANEL: The following modified sections: 1. [id number] Admission Performance, 1. [id number] Admission Performance, 1. [id number] Admission Performance, 1. [id number] Admission Performance, 1. [id number] Admission Performance, 1. [id number] Admission Performance, 1. [id number] Admission Performance, 1. [id number] Admission Performance , Code, H350. Bladder Continence (3-day assessment period), H400. Bowel Continence (3-day assessment period) were [electronically] signed by Luigi Penny on SatJul 16 2019 11:54:09 GMT-0500 (Central Day[place] ight Time)
--- NOTE | 2019-07-16 12:13 | FAST ---
ENCOUNTER DATE AND TIME: 07/16/2019 08:00 (CDT) NAME YAMILKA GIORDANO DATE OF : 1935 DATE OF ADMISSION: 07/09/2019 18:23 (CDT) PHONE: AGE: 84 N# [id number] GENDER: Female ENCOUNTER PHYSICIAN: Dr. Ryan Medina M.D. ADMISSION DIAGNOSIS: - Debility 16 - Debility (16) BOWEL RESECTION/BOWEL OBSTRUCTION. EATING: Not assessed/no information CODE: - ORAL HYGIENE: ORAL HYGIENE - STEP 1: Does the patient complete the activity by him/herself with no assistance (physical, verbal/nonverbal cueing, setup/clean-up)? No. ORAL HYGIENE - STEP 2: Does the patient need only setup/clean-up assistance from one helper? No. ORAL HYGIENE - STEP 3: Does the patient need only verbal/nonverbal cueing or touching/steadying/contact guard assistance fro m one helper? Yes. 1. [id number] ADMISSION PERFORMANCE: Supervision or touching assistance CODE: 04 TOILETING HYGIENE: Not assessed/no information CODE: - BATHING: SHOWER/BATHE SELF - STEP 1: Does the patient complete the activity by him/herself with no assistance (physical, verbal/nonverbal cueing, setup/clean-up)? No. SHOWER/BATHE SELF - STEP 2: Does the patient need only setup/clean-up assistance from one helper? No. SHOWER/BATHE SELF - STEP 3: Does the patient need only verbal/nonverbal cueing or touching/steadying/contact guard assistance fro m one helper? Yes. 1. [id number] ADMISSION PERFORMANCE: Supervision or touching assistance CODE: 04 DRESSING - UPPER BODY: DRESSING - UPPER BODY - STEP 1: Does the patient complete the activity by him/herself with no assistance (physical, verbal/nonverbal cueing, setup/clean-up)? No. DRESSING - UPPER BODY - STEP 2: Does the patient need only setup/clean-up assistance from one helper? Yes. 1. [id number] ADMISSION PERFORMANCE: Setup or clean-up assistance CODE: 05 DRESSING - LOWER BODY: DRESSING - LOWER BODY - STEP 1: Does the patient complete the activity by him/herself with no assistance (physical, verbal/nonverbal cueing, setup/clean-up)? No. DRESSING - LOWER BODY - STEP 2: Does the patient need only setup/clean-up assistance from one helper? No. DRESSING - LOWER BODY - STEP 3: Does the patient need only verbal/nonverbal cueing or touching/steadying/contact guard assistance fro m one helper? No. DRESSING - LOWER BODY - STEP 4: Does the patient need physical assistance - for example lifting or trunk support from one helper - wi th the helper providing less than half of the effort? No. DRESSING - LOWER BODY - STEP 5: Does the patient need physical assistance - for example lifting or trunk support from one helper - wi th the helper providing more than half of the effort? Yes. 1. [id number] ADMISSION PERFORMANCE: Substantial/maximal assistance CODE: 02 PUTTING ON/TAKING OFF FOOTWEAR: FOOTWEAR - STEP 1: Does the patient complete the activity by him/herself with no assistance (physical, verbal/nonverbal cueing, setup/clean-up)? No. FOOTWEAR - STEP 2: Does the patient need only setup/clean-up assistance from one helper? No. FOOTWEAR - STEP 3: Does the patient need only verbal/nonverbal cueing or touching/steadying/contact guard assistance fro m one helper? No. FOOTWEAR - STEP 4: Does the patient need physical assistance - for example lifting or trunk support from one helper - wi th the helper providing less than half of the effort? No. FOOTWEAR - STEP 5: Does the patient need physical assistance - for example lifting or trunk support from one helper - wi th the helper providing more than half of the effort? Yes. 1. [id number] ADMISSION PERFORMANCE: Substantial/maximal assistance CODE: 02 DOES THE PATIENT USE A WHEELCHAIR/SCOOTER? CODE: EXPR INDICATE THE TYPE OF WHEELCHAIR/SCOOTER USED: CODE: EXPR INDICATE THE TYPE OF WHEELCHAIR/SCOOTER USED: CODE: EXPR BLADDER AND BOWEL: CODE: EXPR CODE: EXPR SIGNATURE PANEL: The following modified sections: 1. [id number] Admission Performance, 1. [id number] Admission Performance, 1. [id number] Admission Performance, 1. [id number] Admission Performance, 1. [id number] Admission Performance were [electronically] signed by EDD Morejon on SatJul 16 2019 12:12:40 T-0500 (Central Daylight Time)
--- NOTE | 2019-07-16 17:49 | R.PN ---
ENCOUNTER DATE AND TIME: 07/16/2019 17:44 (CDT) NAME YAMILKA GIORDANO DATE OF : 1935 DATE OF ADMISSION: 07/09/2019 18:23 (CDT) BOWEL RESECTION/BOWEL OBSTRUCTIONCHIEF COMPLAINT: Debility after bowel resection. SUBJECTIVE: Pt denied any depression. Pt denied any Shortness of Breath. WBC 6.2, Hgb 8.7, Plt 287, glucose 81 to 87, prealbumin 17.8. Will d/c repeat blood sugars. Therapeut ic exercises done with moderate assistance. She had nausea abdominal pains and 2 loose stools after b reakfast earlier today. She feels better now. Ambulated 425' with contact guard assistance, using a rolling walker. VITAL SIGNS Temperature: 99.0 F SBP/DBP: 100/52 Pulse: 78 Resp: 16 MEDICATION ALLERGIES: No Known Drug Allergies (NKDA) ENVIRONMENTAL ALLERGIES: - Substance Allergies None Known - Other Allergies None Known NURSING: - Shower allowing shower ACTIVITIES OOB only with supervision THERAPIES: - Dietary and Nutrition Adequate Nutrition. Nutritional Education. Nutritional Supplements. PHYSICAL EXAM - Gen Alert and awake Lying in bed No apparent distress Oriented to: person, time, and place - Skin No skin breakdown. Normacephalic - Eyes No abnormalities - ENMT No abnormalities - Neck No abnormalities - CVS RRR - Chest No abnormalities - Resp Clear to auscultation - Abd Soft - GI Non distended Deferred - No abnormalities - Ext No significant edema - MSK Unremarkable - Neuro No focal deficits - Psych No abnormalities ASSESSMENT: Pt. is a 84 yo Right-handed white female.On 05/25/2019 she was admitted to [facility] with diagnosis BOW EL RESECTION/BOWEL OBSTRUCTION.Her impairment category is Debility 16 - Debility (16).Pre-morbidly, Pt. was independent/mod-I in Locomotion, Transfers Control, Self-Care, and Endurance; and she had goo d Safety Awareness, Social Cognition, Sphincter Control, Communication, Endurance, and Balance.Rob tlmiah, she has deficits of Locomotion, Balance, Transfers Control, Self-Care, Endurance, Safety Awarene ss, Social Cognition, and Sphincter Control.Pt. is now referred to [facility] for acute in-patient rehabilitation in order to maximize patient's functional independence in activit ies of daily living, strength, ROM, and mobility.- Rehab Goal Patient has realistic goal of being discharged at assistance level 6-Odell to reside at Home with Fam martha/Relatives. MDM/PLAN: - Physical Therapy Gait dysfunction - to improve, our physical therapists will perform initial evaluation of pt's statu s upon admission and devise an individualized program for Gait Training, and Wheel Chair mobility Inability to transfer - to improve, our physical therapists will perform initial evaluation of pt's status upon admission and devise an individualized program for Bed mobility Need for home safety evaluation - to improve, our physical therapists will perform initial evaluatio n of pt's status upon admission and devise an individualized program for Home Evaluation Need in caregiver upon discharge - to improve, our physical therapists will perform initial evaluati on of pt's status upon admission and devise an individualized program for Caregiver Training Edema - to improve, our physical therapists will perform initial evaluation of pt's status upon admi ssion and devise an individualized program for Elevation Training, and Lymphedema Therapy New precaution - to improve, our physical therapists will perform initial evaluation of pt's status upon admission and devise an individualized program for Patient precaution education Poor balance - to improve, our physical therapists will perform initial evaluation of pt's status up on admission and devise an individualized program for Balance Training Poor endurance - to improve, our physical therapists will perform initial evaluation of pt's status upon admission and devise an individualized program for Endurance Training Weakness - to improve, our physical therapists will perform initial evaluation of pt's status upon a dmission and devise an individualized program for Aquatic Therapy, Neuromuscular Reeducation, and Str engthening Achieving independence - to improve, our physical therapists will perform initial evaluation of pt's status upon admission and devise an individualized program for Community Reintegration Activities - Occupational Therapy ADL deficits - to improve, our occupation therapists will perform initial evaluation of pt's status upon admission and devise an individualized program for Bathing, Bed mobility, Community Reintegratio n, Cooking, Dressing, Eating, Fine Motor Skills, Grooming, Homemaking, Kitchen Mobility, Laundry, Pat ient Education, Safety Awareness, Splinting - Positioning, Transfers(Toilet, Tub, Shower), and Wheel Chair Management Cognitive deficits - to improve, our occupation therapists will perform initial evaluation of pt's s tatus upon admission and devise an individualized program for Cognition - orientation Need for foster care therapist - to improve, our occupation therapists will perform initial evaluation of pt's status upon admission and devise an individualized program for Caregiver Training Weakness - to improve, our occupation therapists will perform initial evaluation of pt's status upon admission and devise an individualized program for Aquatic Therapy, Balance, Endurance, UE ROM, and UE strengthening - Other See attached MAR (Medication Administration Record) - Diet Type Continue Regular - Diet - Liquid Texture Continue Regular - Tube Feed Continue N/A - Diet - Solid Texture Continue Regular - Shower allowing shower FUNCTIONAL STATUS: - Self-Care A. Eating [place] B. Grooming sup C. Bathing modA D. Dressing - [place] E. Dressing - Lower modA F. Toileting modA - Sphincter Control G. Bladder control [place] H. Bowel control [place] - Transfers Control I. Bed/Chair/Wheelchair modA J. Toilet modA K. Tub/Shower modA - Locomotion L. Walk/Wheelchair (B) modA M. Stairs Dep - Communication N. Comprehension (B) sup O. Expression (B) sup - Social Cognition P. Social Interaction [place] Q. Problem Solving modA R. Memory [place] - Endurance Fair - Balance Fair - Safety Awareness Fair QI SCORES: - Self-Care A. Eating 05-Setup or clean-up assistance B. Oral hygiene 05-Setup or clean-up assistance C. Toileting hygiene 01-Dependent E. Shower/bathe self 03-Partial/moderate assistance F. Upper body dressing 04-Supervision or touching assistance G. Lower body dressing 03-Partial/moderate assistance H. Putting on/taking off footwear 02-Substantial/maximal assistance - Mobility A. Roll left and right 04-Supervision or touching assistance B. Sit to lying 04-Supervision or touching assistance C. Lying to sitting on side of bed 04-Supervision or touching assistance D. Sit to stand 04-Supervision or touching assistance E. Chair/[id number]-ln-nqtru transfer 04-Supervision or touching assistance F. Toilet transfer 04-Supervision or touching assistance G. Car transfer 88-Not attempted due to medical condition or safety concerns I. Walk 10 feet 03-Partial/moderate assistance E. Chair/[id number]-zr-islsk transfer 03-Partial/moderate assistance K. Walk 150 feet 88-Not attempted due to medical condition or safety concerns L. Walking 10 feet on uneven surfaces 88-Not attempted due to medical condition or safety concerns M. 1 step (curb) 88-Not attempted due to medical condition or safety concerns N. 4 steps 88-Not attempted due to medical condition or safety concerns O. 12 steps 88-Not attempted due to medical condition or safety concerns P. Picking up object 88-Not attempted due to medical condition or safety concerns R. Wheel 50 feet with two turns S. Wheel 150 feet - Bladder and Bowel Bladder continence 4-Always incontinent Bowel continence 9-Not rated - Endurance Poor - Balance Poor - Safety Awareness Poor CURRENT FUNC. DEFICITS: Self-Care, Mobility, Endurance, Balance, and Safety Awareness SIGNATURE PANEL: (CDT)
[2019-07-16] MEDS: CRANBERRY FRUIT EXTRACT 200 MG CAP PO SCH (20:04)
[2019-07-16] MEDS: ACETAMINOPHEN 325 MG TABLET PO PRN (20:05)
[2019-07-17] MEDS: METOPROLOL TAR 25 MG TAB PO SCH ×2 (05:18→17:46)
[2019-07-17] MEDS: ENOXAPARIN 30 MG/0.3 ML SQ SCH (06:47)
[2019-07-17] MEDS: PANTOPRAZOLE 40MG TABLET PO SCH ×2 (06:47→16:59)
[2019-07-17] MEDS: ENSURE ENLIVE 237 ML CAN PO SCH ×2 (08:00→21:15)
[2019-07-17] MEDS: IPRATROPIUM 200 PUFF/12.9 GM INH IH SCH ×2 (08:05→20:00)
[2019-07-17] MEDS: AMOX/K CLAV 500 MG TAB PO SCH ×2 (08:06→21:15)
[2019-07-17] MEDS: CRANBERRY FRUIT EXTRACT 200 MG CAP PO SCH ×2 (08:06→21:15)
[2019-07-17] MEDS: LACTOBACILLUS/ACIDOPHILUS TAB PO SCH (08:06)
[2019-07-17] MEDS: TAMSULOSIN 0.4 MG SR CAP PO SCH (08:06)
[2019-07-17] MEDS: THIAMINE HCL 100 MG TABLET PO SCH (08:06)
[2019-07-17] MEDS: FE SULF/FA/VIT B COMP & C TAB PO SCH (08:06)
[2019-07-17] MEDS: PROMOD 30 ML DOSE PO SCH ×2 (08:07→21:15)
[2019-07-17] MEDS: LIDOCAINE 4% PATCH TOP SCH (09:07)
--- NOTE | 2019-07-17 10:14 | P.RH.PN ---
Estimated Length of Stay: 13 Expected Discharge Date: 07/21/19 Discharge Disposition Plan: Home Family Support: Yes Group Home Goal: Mobility, Transfers, Self Care Vital Signs: Last Vital Signs Temp 99.5 F 07/17/19 07:31 Pulse 73 07/17/19 07:31 Resp 16 07/17/19 07:31 BP 123/76 07/17/19 07:31 Pulse Ox 93 07/17/19 07:31 Laboratory: Laboratory Last Values WBC 6.2 K/uL (4.3-10.9) D 07/16/19 05:32 RBC 2.97 M/uL (3.86-4.86) L 07/16/19 05:32 Hgb 8.7 g/dL (12.0-15.0) L 07/16/19 05:32 Hct 26.2 % (36.0-45.0) L 07/16/19 05:32 MCV 88.4 fL (80-100) 07/16/19 05:32 MCH 29.2 pg (27.0-35.0) 07/16/19 05:32 MCHC 33.0 g/dL (32.0-36.0) 07/16/19 05:32 RDW 15.9 % (12.1-15.2) H 07/16/19 05:32 Plt Count 287 K/uL (152-406) 07/16/19 05:32 MPV 9.2 fL (7.6-11.3) 07/16/19 05:32 Neutrophils % 65.4 % (41.7-73.7) 07/16/19 05:32 Lymphocytes % 21.3 % (15.3-44.8) 07/16/19 05:32 Monocytes % 9.8 % (3.3-12.3) 07/16/19 05:32 Eosinophils % 2.7 % (0-4.4) 07/16/19 05:32 Basophils % 0.8 % (0-1.3) 07/16/19 05:32 Absolute Neutrophils 4.0 K/uL (1.8-8.0) 07/16/19 05:32 Absolute Lymphocytes 1.3 K/uL (0.7-4.9) 07/16/19 05:32 Absolute Monocytes 0.6 K/uL (0.1-1.3) 07/16/19 05:32 Absolute Eosinophils 0.2 K/uL (0-0.5) 07/16/19 05:32 Absolute Basophils 0.0 K/uL (0-0.5) 07/16/19 05:32 Morphology Comment Not seen (NOT SEEN) 07/10/19 06:06 Sodium 142 mmol/L (136-145) 07/16/19 05:32 Potassium 4.4 mmol/L (3.5-5.1) 07/16/19 05:32 Chloride 108 mmol/L (98-107) H 07/16/19 05:32 Carbon Dioxide 28 mmol/L (21-32) 07/16/19 05:32 BUN 32 mg/dL (7-18) H 07/16/19 05:32 Creatinine 1.48 mg/dL (0.55-1.3) H 07/16/19 05:32 Estimated GFR 34 mL/min (=/>90) L 07/16/19 05:32 Glucose 87 mg/dL (74-106) 07/16/19 05:32 POC Glucose 102 mg/dl (65-120) 07/14/19 11:53 Calcium 8.9 mg/dL (8.5-10.1) 07/16/19 05:32 Magnesium 1.9 mg/dL (1.8-2.4) 07/10/19 06:06 Albumin 2.1 g/dL (3.4-5.0) L 07/16/19 05:32 Prealbumin 17.8 mg/dL (20-40) L 07/16/19 05:32 Urine Color Yellow 07/09/19 19:17 Urine Appearance Clear 07/09/19 19:17 Urine pH 5.0 (5.0-7.0) 07/09/19 19:17 Ur Specific Dow 1.010 (1.005-1.030) 07/09/19 19:17 Glucose (UA)(Auto) Negative (NEG) 07/09/19 19:17 Urine Ketones Negative (NEG) 07/09/19 19:17 Urine Blood 3+ (NEG) H 07/09/19 19:17 Urine Nitrite Negative (NEG) 07/09/19 19:17 Urine Bilirubin Negative (NEG) 07/09/19 19:17 Urine Urobilinogen 0.2 mg/dL (0.2-1.0) 07/09/19 19:17 Ur Leukocyte Esterase Negative (NEG) 07/09/19 19:17 Urine RBC <5 /HPF (NONE SEEN) 07/09/19 19:17 Urine WBC <5 /HPF (<5) 07/09/19 19:17 Ur Squamous Epith Cells <5 /HPF (NONE SEEN) 07/09/19 19:17 Amorphous Sediment 1+ /HPF (NONE SEEN) 07/09/19 19:17 Urine Bacteria <20 /HPF (<20) 07/09/19 19:17 Urine Mucus 1+ /HPF (NONE SEEN) 07/09/19 19:17 Urine Culture Reflexed Not needed 07/09/19 19:17 Urine Total Protein 2+ (NEG) H 07/09/19 19:17 Weight: 100 lb 8 oz Wound Present: Yes Closed Surgical Incision Present: Yes Negative Pressure Wound Therapy Present: No Physician Update: Labs were reviewed and are stable. She has features of depression. Will start Cymbalta 20 mg daily. She is walking 150' with contact guard assistance. She is limited due to knee pain. Functional Improvement: There is mild cognitive impairment which is imapcted by significant hearing loss. 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 Please see the Rehabilitation Signature page for all necessary signatures.
[2019-07-17] MEDS ORDERED: NA CHLORIDE 0.9% 1,000 ML IV SCH (13:00)
[2019-07-17] MEDS: ACETAMINOPHEN 325 MG TABLET PO PRN (21:14)
--- NOTE | 2019-07-18 02:44 | FAST ---
SHIFT START DATE/TIME: 07/17/2019 19:00 (CDT) SHIFT END DATE/TIME: 07/18/2019 07:00 (CDT) NAME YAMILKA GIORDANO DATE OF : 1935 DATE OF ADMISSION: 07/09/2019 18:23 (CDT) PHONE: AGE: 84 N# [id number] GENDER: Female ENCOUNTER PHYSICIAN: Dr. Ryan Medina M.D. ADMISSION DIAGNOSIS: - Debility 16 - Debility (16) BOWEL RESECTION/BOWEL OBSTRUCTION. EATING: Not assessed/no information CODE: - ORAL HYGIENE: Not assessed/no information CODE: - TOILETING HYGIENE: TOILETING HYGIENE - STEP 1: Does the patient complete the activity by him/herself with no assistance (physical, verbal/nonverbal cueing, setup/clean-up)? No. TOILETING HYGIENE - STEP 2: Does the patient need only setup/clean-up assistance from one helper? No. TOILETING HYGIENE - STEP 3: Does the patient need only verbal/nonverbal cueing or touching/steadying/contact guard assistance fro m one helper? No. TOILETING HYGIENE - STEP 4: Does the patient need physical assistance - for example lifting or trunk support from one helper - wi th the helper providing less than half of the effort? Yes. 1. [id number] ADMISSION PERFORMANCE: Partial/moderate assistance CODE: 03 BATHING: Not assessed/no information CODE: - DRESSING - UPPER BODY: Not assessed/no information CODE: - DRESSING - LOWER BODY: Not assessed/no information CODE: - PUTTING ON/TAKING OFF FOOTWEAR: Not assessed/no information CODE: - ROLL LEFT AND RIGHT: ROLL LEFT AND RIGHT - STEP 1: Does the patient complete the activity by him/herself with no assistance (physical, verbal/nonverbal cueing, setup/clean-up)? No. ROLL LEFT AND RIGHT - STEP 2: Does the patient need only setup/clean-up assistance from one helper? No. ROLL LEFT AND RIGHT - STEP 3: Does the patient need only verbal/nonverbal cueing or touching/steadying/contact guard assistance fro m one helper? No. ROLL LEFT AND RIGHT - STEP 4: Does the patient need physical assistance - for example lifting or trunk support from one helper - wi th the helper providing less than half of the effort? Yes. 1. [id number] ADMISSION PERFORMANCE: Partial/moderate assistance CODE: 03 SIT TO LYING: SIT TO LYING - STEP 1: Does the patient complete the activity by him/herself with no assistance (physical, verbal/nonverbal cueing, setup/clean-up)? No. SIT TO LYING - STEP 2: Does the patient need only setup/clean-up assistance from one helper? No. SIT TO LYING - STEP 3: Does the patient need only verbal/nonverbal cueing or touching/steadying/contact guard assistance fro m one helper? Yes. 1. [id number] ADMISSION PERFORMANCE: Supervision or touching assistance CODE: 04 LYING TO SITTING: LYING TO SITTING ON SIDE OF BED - STEP 1: Does the patient complete the activity by him/herself with no assistance (physical, verbal/nonverbal cueing, setup/clean-up)? No. LYING TO SITTING ON SIDE OF BED - STEP 2: Does the patient need only setup/clean-up assistance from one helper? No. LYING TO SITTING ON SIDE OF BED - STEP 3: Does the patient need only verbal/nonverbal cueing or touching/steadying/contact guard assistance fro m one helper? Yes. 1. [id number] ADMISSION PERFORMANCE: Supervision or touching assistance CODE: 04 SIT TO STAND: SIT TO STAND - STEP 1: Does the patient complete the activity by him/herself with no assistance (physical, verbal/nonverbal cueing, setup/clean-up)? No. SIT TO STAND - STEP 2: Does the patient need only setup/clean-up assistance from one helper? No. SIT TO STAND - STEP 3: Does the patient need only verbal/nonverbal cueing or touching/steadying/contact guard assistance fro m one helper? Yes. 1. [id number] ADMISSION PERFORMANCE: Supervision or touching assistance CODE: 04 TRANSFERS: BED, CHAIR: CHAIR/[id number] TRANSFER - STEP 1: Does the patient complete the activity by him/herself with no assistance (physical, verbal/nonverbal cueing, setup/clean-up)? No. CHAIR/[id number] TRANSFER - STEP 2: Does the patient need only setup/clean-up assistance from one helper? No. CHAIR/[id number] TRANSFER - STEP 3: Does the patient need only verbal/nonverbal cueing or touching/steadying/contact guard assistance fro m one helper? Yes. 1. [id number] ADMISSION PERFORMANCE: Supervision or touching assistance CODE: 04 TRANSFER TOILET: TOILET TRANSFER - STEP 1: Does the patient complete the activity by him/herself with no assistance (physical, verbal/nonverbal cueing, setup/clean-up)? No. TOILET TRANSFER - STEP 2: Does the patient need only setup/clean-up assistance from one helper? No. TOILET TRANSFER - STEP 3: Does the patient need only verbal/nonverbal cueing or touching/steadying/contact guard assistance fro m one helper? Yes. 1. [id number] ADMISSION PERFORMANCE: Supervision or touching assistance CODE: 04 TRANSFERS: CAR: Not assessed/no information CODE: - WALK 10 FEET: Not assessed/no information CODE: - 1 STEP (CURB): Not assessed/no information CODE: - PICKING UP OBJECT: Not assessed/no information CODE: - DOES THE PATIENT USE A WHEELCHAIR/SCOOTER? CODE: EXPR WHEEL 50 FEET WITH TWO TURNS: Not assessed/no information CODE: - INDICATE THE TYPE OF WHEELCHAIR/SCOOTER USED: CODE: EXPR WHEEL 150 FEET: Not assessed/no information CODE: - INDICATE THE TYPE OF WHEELCHAIR/SCOOTER USED: CODE: EXPR BLADDER AND BOWEL: H350. BLADDER CONTINENCE (3-DAY ASSESSMENT PERIOD): Always incontinent CODE: 4 H400. BOWEL CONTINENCE (3-DAY ASSESSMENT PERIOD): Always incontinent (no episodes of continent bowel movements) CODE: 3
[2019-07-18] MEDS: METOPROLOL TAR 25 MG TAB PO SCH ×2 (05:45→16:48)
[2019-07-18 05:50] VITALS: BMI 18.0
[2019-07-18] MEDS: ENOXAPARIN 30 MG/0.3 ML SQ SCH (07:23)
[2019-07-18] MEDS: ENSURE ENLIVE 237 ML CAN PO SCH ×2 (08:00→20:25)
[2019-07-18] MEDS: PROMOD 30 ML DOSE PO SCH ×2 (09:00→20:00)
[2019-07-18] MEDS: FE SULF/FA/VIT B COMP & C TAB PO SCH (09:17)
[2019-07-18] MEDS: CRANBERRY FRUIT EXTRACT 200 MG CAP PO SCH ×2 (09:17→20:22)
[2019-07-18] MEDS: PANTOPRAZOLE 40MG TABLET PO SCH ×2 (09:17→16:48)
[2019-07-18] MEDS: LIDOCAINE 4% PATCH TOP SCH (09:17)
[2019-07-18] MEDS: AMOX/K CLAV 500 MG TAB PO SCH ×2 (09:17→20:23)
[2019-07-18] MEDS: IPRATROPIUM 200 PUFF/12.9 GM INH IH SCH ×2 (09:18→20:25)
[2019-07-18] MEDS: LACTOBACILLUS/ACIDOPHILUS TAB PO SCH (09:18)
[2019-07-18] MEDS: TAMSULOSIN 0.4 MG SR CAP PO SCH (09:18)
[2019-07-18] MEDS: THIAMINE HCL 100 MG TABLET PO SCH (09:18)
[2019-07-18] MEDS: ACETAMINOPHEN 325 MG TABLET PO PRN (20:26)
[2019-07-19] MEDS: METOPROLOL TAR 25 MG TAB PO SCH ×2 (05:15→16:53)
[2019-07-19] MEDS: ENOXAPARIN 30 MG/0.3 ML SQ SCH (07:58)
[2019-07-19] MEDS: PANTOPRAZOLE 40MG TABLET PO SCH ×2 (07:58→16:54)
[2019-07-19] MEDS: LIDOCAINE 4% PATCH TOP SCH (07:58)
[2019-07-19] MEDS: IPRATROPIUM 200 PUFF/12.9 GM INH IH SCH ×2 (07:58→21:08)
[2019-07-19] MEDS: TAMSULOSIN 0.4 MG SR CAP PO SCH (07:59)
[2019-07-19] MEDS: FE SULF/FA/VIT B COMP & C TAB PO SCH (07:59)
[2019-07-19] MEDS: LACTOBACILLUS/ACIDOPHILUS TAB PO SCH (07:59)
[2019-07-19] MEDS: ENSURE ENLIVE 237 ML CAN PO SCH ×2 (07:59→21:09)
[2019-07-19] MEDS: CRANBERRY FRUIT EXTRACT 200 MG CAP PO SCH ×2 (07:59→21:08)
[2019-07-19] MEDS: THIAMINE HCL 100 MG TABLET PO SCH (07:59)
[2019-07-19] MEDS: AMOX/K CLAV 500 MG TAB PO SCH ×2 (07:59→21:08)
[2019-07-19] MEDS: PROMOD 30 ML DOSE PO SCH ×2 (08:00→21:09)
[2019-07-19] MEDS: ACETAMINOPHEN 325 MG TABLET PO PRN ×2 (16:54→21:09)
[2019-07-20] MEDS: METOPROLOL TAR 25 MG TAB PO SCH ×2 (05:03→17:30)
[2019-07-20] MEDS: ENOXAPARIN 30 MG/0.3 ML SQ SCH (07:22)
[2019-07-20] MEDS: PROMOD 30 ML DOSE PO SCH ×2 (08:00→20:00)
[2019-07-20] MEDS: LIDOCAINE 4% PATCH TOP SCH (08:00)
[2019-07-20] MEDS: ENSURE ENLIVE 237 ML CAN PO SCH ×2 (08:00→20:00)
[2019-07-20] MEDS: IPRATROPIUM 200 PUFF/12.9 GM INH IH SCH ×2 (08:00→19:33)
[2019-07-20] MEDS: TAMSULOSIN 0.4 MG SR CAP PO SCH (08:37)
[2019-07-20] MEDS: THIAMINE HCL 100 MG TABLET PO SCH (08:37)
[2019-07-20] MEDS: CRANBERRY FRUIT EXTRACT 200 MG CAP PO SCH ×2 (08:37→19:33)
[2019-07-20] MEDS: FE SULF/FA/VIT B COMP & C TAB PO SCH (08:38)
[2019-07-20] MEDS: AMOX/K CLAV 500 MG TAB PO SCH (08:38)
[2019-07-20] MEDS: LACTOBACILLUS/ACIDOPHILUS TAB PO SCH (08:38)
[2019-07-20] MEDS: PANTOPRAZOLE 40MG TABLET PO SCH ×2 (08:38→17:21)
[2019-07-20] MEDS ORDERED: IPRATROPIUM BROM 0.5MG/2.5ML NEB PRN (09:00)
--- NOTE | 2019-07-20 12:45 | FAST ---
ENCOUNTER DATE AND TIME: 07/20/2019 08:00 (CDT) NAME YAMILKA GIORDANO DATE OF : 1935 DATE OF ADMISSION: 07/09/2019 18:23 (CDT) PHONE: AGE: 84 N# [id number] GENDER: Female ENCOUNTER PHYSICIAN: Dr. Ryan Medina M.D. ADMISSION DIAGNOSIS: - Debility 16 - Debility (16) BOWEL RESECTION/BOWEL OBSTRUCTION. EATING: Not assessed/no information CODE: - ORAL HYGIENE: ORAL HYGIENE - STEP 1: Does the patient complete the activity by him/herself with no assistance (physical, verbal/nonverbal cueing, setup/clean-up)? Yes. 1. [id number] ADMISSION PERFORMANCE: Independent CODE: 06 TOILETING HYGIENE: Not assessed/no information CODE: - BATHING: SHOWER/BATHE SELF - STEP 1: Does the patient complete the activity by him/herself with no assistance (physical, verbal/nonverbal cueing, setup/clean-up)? No. SHOWER/BATHE SELF - STEP 2: Does the patient need only setup/clean-up assistance from one helper? No. SHOWER/BATHE SELF - STEP 3: Does the patient need only verbal/nonverbal cueing or touching/steadying/contact guard assistance fro m one helper? Yes. 1. [id number] ADMISSION PERFORMANCE: Supervision or touching assistance CODE: 04 DRESSING - UPPER BODY: DRESSING - UPPER BODY - STEP 1: Does the patient complete the activity by him/herself with no assistance (physical, verbal/nonverbal cueing, setup/clean-up)? Yes. 1. [id number] ADMISSION PERFORMANCE: Independent CODE: 06 DRESSING - LOWER BODY: DRESSING - LOWER BODY - STEP 1: Does the patient complete the activity by him/herself with no assistance (physical, verbal/nonverbal cueing, setup/clean-up)? No. DRESSING - LOWER BODY - STEP 2: Does the patient need only setup/clean-up assistance from one helper? No. DRESSING - LOWER BODY - STEP 3: Does the patient need only verbal/nonverbal cueing or touching/steadying/contact guard assistance fro m one helper? Yes. 1. [id number] ADMISSION PERFORMANCE: Supervision or touching assistance CODE: 04 PUTTING ON/TAKING OFF FOOTWEAR: FOOTWEAR - STEP 1: Does the patient complete the activity by him/herself with no assistance (physical, verbal/nonverbal cueing, setup/clean-up)? No. FOOTWEAR - STEP 2: Does the patient need only setup/clean-up assistance from one helper? No. FOOTWEAR - STEP 3: Does the patient need only verbal/nonverbal cueing or touching/steadying/contact guard assistance fro m one helper? Yes. 1. [id number] ADMISSION PERFORMANCE: Supervision or touching assistance CODE: 04 DOES THE PATIENT USE A WHEELCHAIR/SCOOTER? CODE: EXPR INDICATE THE TYPE OF WHEELCHAIR/SCOOTER USED: CODE: EXPR INDICATE THE TYPE OF WHEELCHAIR/SCOOTER USED: CODE: EXPR BLADDER AND BOWEL: CODE: EXPR CODE: EXPR SIGNATURE PANEL: The following modified sections: 1. [id number] Admission Performance, 1. [id number] Admission Performance, 1. [id number] Admission Performance, 1. [id number] Admission Performance, 1. [id number] Admission Performance were [electronically] signed by EDD Morejon on SatJul 20 2019 12:44:50 GMT-0500 (Central Daylight Time)
[2019-07-20 16:49] LABS: Urine Appearance CLOUDY; Urine Bilirubin NEGATIVE (NEG); Urine Blood 2+ (NEG); Urine Color YELLOW; Urine Glucose NEGATIVE (NEG); Urine Protein 2+ (NEG); Urine Specific Gravity 1.015 (1.005-1.030); Urine Urobilinogen 0.2 mg/dL (0.2-1.0)
[2019-07-20 16:57] LABS: Urine Microscopic Reflex ORDER UMIC
[2019-07-20 17:04] LABS: Urine Bacteria <20 /HPF (<20); Urine Culture Reflex Order NOT NEEDED; Urine Mucus 2+ /HPF (NONE SEEN); Urine Yeast PRESENT (NONE SEEN)
--- NOTE | 2019-07-20 17:21 | R.PN ---
ENCOUNTER DATE AND TIME: 07/20/2019 17:17 (CDT) NAME YAMILKA GIORDANO DATE OF : 1935 DATE OF ADMISSION: 07/09/2019 18:23 (CDT) BOWEL RESECTION/BOWEL OBSTRUCTIONCHIEF COMPLAINT: Debility after bowel resection. SUBJECTIVE: Pt denied any depression. Pt denied any Shortness of Breath. WBC 6.2, Hgb 8.7, Plt 287, glucose 81 to 87, prealbumin 17.8. Will d/c repeat blood sugars. Therapeut ic exercises done with moderate assistance. She had nausea abdominal pains and 2 loose stools after b reakfast earlier today. She feels better now. Ambulated 425' with contact guard assistance, using a rolling walker. Repeat UA done 07-20-19 shows 3+ esterase, < 20 bacteria, yeast present and 2+ protein, cultures are p ending. VITAL SIGNS Temperature: 98.7 F SBP/DBP: 132/70 Pulse: 65 Resp: 16 MEDICATION ALLERGIES: No Known Drug Allergies (NKDA) ENVIRONMENTAL ALLERGIES: - Substance Allergies None Known - Other Allergies None Known NURSING: - Shower allowing shower ACTIVITIES OOB only with supervision THERAPIES: - Dietary and Nutrition Adequate Nutrition. Nutritional Education. Nutritional Supplements. PHYSICAL EXAM - Gen Alert and awake Lying in bed No apparent distress Oriented to: person, time, and place - Skin No skin breakdown. Normacephalic - Eyes No abnormalities - ENMT No abnormalities - Neck No abnormalities - CVS RRR - Chest No abnormalities - Resp Clear to auscultation - Abd Soft - GI Non distended Deferred - No abnormalities - Ext No significant edema - MSK Unremarkable - Neuro No focal deficits - Psych No abnormalities ASSESSMENT: Pt. is a 84 yo Right-handed white female.On 05/25/2019 she was admitted to [facility] with diagnosis BOW EL RESECTION/BOWEL OBSTRUCTION.Her impairment category is Debility 16 - Debility (16).Pre-morbidly, Pt. was independent/mod-I in Locomotion, Transfers Control, Self-Care, and Endurance; and she had goo d Safety Awareness, Social Cognition, Sphincter Control, Communication, Endurance, and Balance.Curren tly, she has deficits of Locomotion, Balance, Transfers Control, Self-Care, Endurance, Safety Awarene ss, Social Cognition, and Sphincter Control.Pt. is now referred to [facility] for acute in-patient rehabilitation in order to maximize patient's functional independence in activit ies of daily living, strength, ROM, and mobility.- Rehab Goal Patient has realistic goal of being discharged at assistance level 6-Odell to reside at Home with Fam martha/Relatives. MDM/PLAN: - Physical Therapy Gait dysfunction - to improve, our physical therapists will perform initial evaluation of pt's statu s upon admission and devise an individualized program for Gait Training, and Wheel Chair mobility Inability to transfer - to improve, our physical therapists will perform initial evaluation of pt's status upon admission and devise an individualized program for Bed mobility Need for home safety evaluation - to improve, our physical therapists will perform initial evaluatio n of pt's status upon admission and devise an individualized program for Home Evaluation Need in caregiver upon discharge - to improve, our physical therapists will perform initial evaluati on of pt's status upon admission and devise an individualized program for Caregiver Training Edema - to improve, our physical therapists will perform initial evaluation of pt's status upon admi ssion and devise an individualized program for Elevation Training, and Lymphedema Therapy New precaution - to improve, our physical therapists will perform initial evaluation of pt's status upon admission and devise an individualized program for Patient precaution education Poor balance - to improve, our physical therapists will perform initial evaluation of pt's status up on admission and devise an individualized program for Balance Training Poor endurance - to improve, our physical therapists will perform initial evaluation of pt's status upon admission and devise an individualized program for Endurance Training Weakness - to improve, our physical therapists will perform initial evaluation of pt's status upon a dmission and devise an individualized program for Aquatic Therapy, Neuromuscular Reeducation, and Str engthening Achieving independence - to improve, our physical therapists will perform initial evaluation of pt's status upon admission and devise an individualized program for Community Reintegration Activities - Occupational Therapy ADL deficits - to improve, our occupation therapists will perform initial evaluation of pt's status upon admission and devise an individualized program for Bathing, Bed mobility, Community Reintegratio n, Cooking, Dressing, Eating, Fine Motor Skills, Grooming, Homemaking, Kitchen Mobility, Laundry, Pat ient Education, Safety Awareness, Splinting - Positioning, Transfers(Toilet, Tub, Shower), and Wheel Chair Management Cognitive deficits - to improve, our occupation therapists will perform initial evaluation of pt's s tatus upon admission and devise an individualized program for Cognition - orientation Need for behavioral health care manager - to improve, our occupation therapists will perform initial evaluation of pt's status upon admission and devise an individualized program for Caregiver Training Weakness - to improve, our occupation therapists will perform initial evaluation of pt's status upon admission and devise an individualized program for Aquatic Therapy, Balance, Endurance, UE ROM, and UE strengthening - Other See attached MAR (Medication Administration Record) - Diet Type Continue Regular - Diet - Liquid Texture Continue Regular - Tube Feed Continue N/A - Diet - Solid Texture Continue Regular - Shower allowing shower FUNCTIONAL STATUS: - Self-Care A. Eating [place] B. Grooming sup C. Bathing modA D. Dressing - [place] E. Dressing - Lower modA F. Toileting modA - Sphincter Control G. Bladder control [place] H. Bowel control [place] - Transfers Control I. Bed/Chair/Wheelchair modA J. Toilet modA K. Tub/Shower modA - Locomotion L. Walk/Wheelchair (B) modA M. Stairs Dep - Communication N. Comprehension (B) sup O. Expression (B) sup - Social Cognition P. Social Interaction [place] Q. Problem Solving modA R. Memory [place] - Endurance Fair - Balance Fair - Safety Awareness Fair QI SCORES: - Self-Care A. Eating 05-Setup or clean-up assistance B. Oral hygiene 05-Setup or clean-up assistance C. Toileting hygiene 01-Dependent E. Shower/bathe self 03-Partial/moderate assistance F. Upper body dressing 04-Supervision or touching assistance G. Lower body dressing 03-Partial/moderate assistance H. Putting on/taking off footwear 02-Substantial/maximal assistance - Mobility A. Roll left and right 04-Supervision or touching assistance B. Sit to lying 04-Supervision or touching assistance C. Lying to sitting on side of bed 04-Supervision or touching assistance D. Sit to stand 04-Supervision or touching assistance E. Chair/jbl-sd-xheei transfer 04-Supervision or touching assistance F. Toilet transfer 04-Supervision or touching assistance G. Car transfer 88-Not attempted due to medical condition or safety concerns I. Walk 10 feet 03-Partial/moderate assistance E. Chair/and-up-usyal transfer 03-Partial/moderate assistance K. Walk 150 feet 88-Not attempted due to medical condition or safety concerns L. Walking 10 feet on uneven surfaces 88-Not attempted due to medical condition or safety concerns M. 1 step (curb) 88-Not attempted due to medical condition or safety concerns N. 4 steps 88-Not attempted due to medical condition or safety concerns O. 12 steps 88-Not attempted due to medical condition or safety concerns P. Picking up object 88-Not attempted due to medical condition or safety concerns R. Wheel 50 feet with two turns S. Wheel 150 feet - Bladder and Bowel Bladder continence 4-Always incontinent Bowel continence 9-Not rated - Endurance Poor - Balance Poor - Safety Awareness Poor CURRENT FUNC. DEFICITS: Self-Care, Mobility, Endurance, Balance, and Safety Awareness SIGNATURE PANEL: (CDT)
[2019-07-20] MEDS: ACETAMINOPHEN 325 MG TABLET PO PRN (19:33)
[2019-07-20] MEDS: ASCORBIC ACID 500 MG TABLET PO SCH (19:33)
[2019-07-21] MEDS: METOPROLOL TAR 25 MG TAB PO SCH ×2 (05:19→16:54)
[2019-07-21] MEDS: PANTOPRAZOLE 40MG TABLET PO SCH ×2 (07:30→16:56)
[2019-07-21] MEDS: LACTOBACILLUS/ACIDOPHILUS TAB PO SCH (08:00)
[2019-07-21] MEDS ORDERED: VITAMIN D 1000 UNIT TAB PO SCH (08:00)
[2019-07-21] MEDS: ENSURE ENLIVE 237 ML CAN PO SCH ×2 (08:00→19:51)
[2019-07-21] MEDS: TAMSULOSIN 0.4 MG SR CAP PO SCH (08:00)
[2019-07-21] MEDS: IPRATROPIUM 200 PUFF/12.9 GM INH IH SCH ×2 (08:00→20:52)
[2019-07-21] MEDS: VITAMIN D 5,000 UNIT CAP PO SCH (08:00)
[2019-07-21] MEDS: CRANBERRY FRUIT EXTRACT 200 MG CAP PO SCH ×2 (08:00→19:26)
[2019-07-21] MEDS: PROMOD 30 ML DOSE PO SCH ×2 (08:00→19:51)
[2019-07-21] MEDS: ENOXAPARIN 30 MG/0.3 ML SQ SCH (08:00)
[2019-07-21] MEDS: THIAMINE HCL 100 MG TABLET PO SCH (08:00)
[2019-07-21] MEDS: FE SULF/FA/VIT B COMP & C TAB PO SCH (08:00)
[2019-07-21] MEDS: ASCORBIC ACID 500 MG TABLET PO SCH ×2 (08:00→19:26)
[2019-07-21] MEDS: LIDOCAINE 4% PATCH TOP SCH (09:06)
[2019-07-21] MEDS ORDERED: IPRATROPIUM BROM 0.5MG/2.5ML NEB PRN (15:00)
[2019-07-21] MEDS ORDERED: FORMULATION-R RECTAL 30GM PR PRN (15:19)
--- NOTE | 2019-07-21 17:21 | R.PN ---
ENCOUNTER DATE AND TIME: 07/21/2019 17:17 (CDT) NAME YAMILKA GIORDANO DATE OF : 1935 DATE OF ADMISSION: 07/09/2019 18:23 (CDT) BOWEL RESECTION/BOWEL OBSTRUCTIONCHIEF COMPLAINT: Debility after bowel resection. SUBJECTIVE: Pt denied any depression. Pt denied any Shortness of Breath. WBC 6.2, Hgb 8.7, Plt 287, glucose 81 to 87, prealbumin 17.8. Will d/c repeat blood sugars. Therapeut ic exercises done with moderate assistance. She had nausea abdominal pains and 2 loose stools after b reakfast earlier today. She feels better now. Ambulated 425' with contact guard assistance, using a rolling walker. Repeat UA done 07-20-19 shows 3+ esterase, < 20 bacteria, yeast present and 2+ protein, cultures are p ending. Cultures show < 10,000 CFU with no bacterial growth. She is now on Miconazole 2% vaginally at bedtime for 3 days. VITAL SIGNS Temperature: 98.0 F SBP/DBP: 114/54 Pulse: 78 Resp: 16 MEDICATION ALLERGIES: No Known Drug Allergies (NKDA) ENVIRONMENTAL ALLERGIES: - Substance Allergies None Known - Other Allergies None Known NURSING: - Shower allowing shower ACTIVITIES OOB only with supervision THERAPIES: - Dietary and Nutrition Adequate Nutrition. Nutritional Education. Nutritional Supplements. PHYSICAL EXAM - Gen Alert and awake Lying in bed No apparent distress Oriented to: person, time, and place - Skin No skin breakdown. Normacephalic - Eyes No abnormalities - ENMT No abnormalities - Neck No abnormalities - CVS RRR - Chest No abnormalities - Resp Clear to auscultation - Abd Soft - GI Non distended Deferred - No abnormalities - Ext No significant edema - MSK Unremarkable - Neuro No focal deficits - Psych No abnormalities ASSESSMENT: Pt. is a 84 yo Right-handed white female.On 05/25/2019 she was admitted to [facility] with diagnosis BOW EL RESECTION/BOWEL OBSTRUCTION.Her impairment category is Debility 16 - Debility (16).Pre-morbidly, Pt. was independent/mod-I in Locomotion, Transfers Control, Self-Care, and Endurance; and she had goo d Safety Awareness, Social Cognition, Sphincter Control, Communication, Endurance, and Balance.Curren tly, she has deficits of Locomotion, Balance, Transfers Control, Self-Care, Endurance, Safety Awarene ss, Social Cognition, and Sphincter Control.Pt. is now referred to [facility] for acute in-patient rehabilitation in order to maximize patient's functional independence in activit ies of daily living, strength, ROM, and mobility.- Rehab Goal Patient has realistic goal of being discharged at assistance level 6-Odell to reside at Home with Fam martha/Relatives. MDM/PLAN: - Physical Therapy Gait dysfunction - to improve, our physical therapists will perform initial evaluation of pt's statu s upon admission and devise an individualized program for Gait Training, and Wheel Chair mobility Inability to transfer - to improve, our physical therapists will perform initial evaluation of pt's status upon admission and devise an individualized program for Bed mobility Need for home safety evaluation - to improve, our physical therapists will perform initial evaluatio n of pt's status upon admission and devise an individualized program for Home Evaluation Need in caregiver upon discharge - to improve, our physical therapists will perform initial evaluati on of pt's status upon admission and devise an individualized program for Caregiver Training Edema - to improve, our physical therapists will perform initial evaluation of pt's status upon admi ssion and devise an individualized program for Elevation Training, and Lymphedema Therapy New precaution - to improve, our physical therapists will perform initial evaluation of pt's status upon admission and devise an individualized program for Patient precaution education Poor balance - to improve, our physical therapists will perform initial evaluation of pt's status up on admission and devise an individualized program for Balance Training Poor endurance - to improve, our physical therapists will perform initial evaluation of pt's status upon admission and devise an individualized program for Endurance Training Weakness - to improve, our physical therapists will perform initial evaluation of pt's status upon a dmission and devise an individualized program for Aquatic Therapy, Neuromuscular Reeducation, and Str engthening Achieving independence - to improve, our physical therapists will perform initial evaluation of pt's status upon admission and devise an individualized program for Community Reintegration Activities - Occupational Therapy ADL deficits - to improve, our occupation therapists will perform initial evaluation of pt's status upon admission and devise an individualized program for Bathing, Bed mobility, Community Reintegratio n, Cooking, Dressing, Eating, Fine Motor Skills, Grooming, Homemaking, Kitchen Mobility, Laundry, Pat ient Education, Safety Awareness, Splinting - Positioning, Transfers(Toilet, Tub, Shower), and Wheel Chair Management Cognitive deficits - to improve, our occupation therapists will perform initial evaluation of pt's s tatus upon admission and devise an individualized program for Cognition - orientation Need for healthcare specialist - to improve, our occupation therapists will perform initial evaluation of pt's status upon admission and devise an individualized program for Caregiver Training Weakness - to improve, our occupation therapists will perform initial evaluation of pt's status upon admission and devise an individualized program for Aquatic Therapy, Balance, Endurance, UE ROM, and UE strengthening - Other See attached MAR (Medication Administration Record) - Diet Type Continue Regular - Diet - Liquid Texture Continue Regular - Tube Feed Continue N/A - Diet - Solid Texture Continue Regular - Shower allowing shower FUNCTIONAL STATUS: - Self-Care A. Eating [place] B. Grooming sup C. Bathing modA D. Dressing - [place] E. Dressing - Lower modA F. Toileting modA - Sphincter Control G. Bladder control [place] H. Bowel control [place] - Transfers Control I. Bed/Chair/Wheelchair modA J. Toilet modA K. Tub/Shower modA - Locomotion L. Walk/Wheelchair (B) modA M. Stairs Dep - Communication N. Comprehension (B) sup O. Expression (B) sup - Social Cognition P. Social Interaction [place] Q. Problem Solving modA R. Memory [place] - Endurance Fair - Balance Fair - Safety Awareness Fair QI SCORES: - Self-Care A. Eating 05-Setup or clean-up assistance B. Oral hygiene 05-Setup or clean-up assistance C. Toileting hygiene 01-Dependent E. Shower/bathe self 03-Partial/moderate assistance F. Upper body dressing 04-Supervision or touching assistance G. Lower body dressing 03-Partial/moderate assistance H. Putting on/taking off footwear 02-Substantial/maximal assistance - Mobility A. Roll left and right 04-Supervision or touching assistance B. Sit to lying 04-Supervision or touching assistance C. Lying to sitting on side of bed 04-Supervision or touching assistance D. Sit to stand 04-Supervision or touching assistance E. Chair/afu-mu-yofnl transfer 04-Supervision or touching assistance F. Toilet transfer 04-Supervision or touching assistance G. Car transfer 88-Not attempted due to medical condition or safety concerns I. Walk 10 feet 03-Partial/moderate assistance E. Chair/jtq-bf-bziho transfer 03-Partial/moderate assistance K. Walk 150 feet 88-Not attempted due to medical condition or safety concerns L. Walking 10 feet on uneven surfaces 88-Not attempted due to medical condition or safety concerns M. 1 step (curb) 88-Not attempted due to medical condition or safety concerns N. 4 steps 88-Not attempted due to medical condition or safety concerns O. 12 steps 88-Not attempted due to medical condition or safety concerns P. Picking up object 88-Not attempted due to medical condition or safety concerns R. Wheel 50 feet with two turns S. Wheel 150 feet - Bladder and Bowel Bladder continence 4-Always incontinent Bowel continence 9-Not rated - Endurance Poor - Balance Poor - Safety Awareness Poor CURRENT FUNC. DEFICITS: Self-Care, Mobility, Endurance, Balance, and Safety Awareness SIGNATURE PANEL: (CDT)
[2019-07-21] MEDS: ACETAMINOPHEN 325 MG TABLET PO PRN (19:26)
[2019-07-21] MEDS: MICONAZOLE 7 APPL/48 GM TUBE VAG SCH (19:27)
[2019-07-21] MEDS ORDERED: CLOTRIMAZ/BETAMETH CREAM 15GM TOP SCH (20:00)
[2019-07-22] MEDS: METOPROLOL TAR 25 MG TAB PO SCH ×2 (05:27→16:24)
[2019-07-22 06:16] LABS: Absolute Lymphocytes (CBC) 1.6 K/uL (0.7-4.9); Basophils % 0.4 % (0-1.3); Hematocrit 25.6 % (36.0-45.0); MPV 9.5 fL (7.6-11.3); RBC Red Blood Cell Count 2.88 M/uL (3.86-4.86)
[2019-07-22] MEDS: PANTOPRAZOLE 40MG TABLET PO SCH ×2 (07:22→16:25)
[2019-07-22] MEDS: CRANBERRY FRUIT EXTRACT 200 MG CAP PO SCH ×2 (07:23→19:59)
[2019-07-22] MEDS: IPRATROPIUM 200 PUFF/12.9 GM INH IH SCH ×2 (07:23→20:00)
[2019-07-22] MEDS: ENOXAPARIN 30 MG/0.3 ML SQ SCH (07:23)
[2019-07-22] MEDS: THIAMINE HCL 100 MG TABLET PO SCH (07:24)
[2019-07-22] MEDS: FE SULF/FA/VIT B COMP & C TAB PO SCH (07:24)
[2019-07-22] MEDS: VITAMIN D 5,000 UNIT CAP PO SCH (07:24)
[2019-07-22] MEDS: ASCORBIC ACID 500 MG TABLET PO SCH ×2 (07:24→19:59)
[2019-07-22] MEDS: LACTOBACILLUS/ACIDOPHILUS TAB PO SCH (07:24)
[2019-07-22] MEDS: PROMOD 30 ML DOSE PO SCH ×2 (07:25→20:00)
[2019-07-22] MEDS: ENSURE ENLIVE 237 ML CAN PO SCH ×2 (07:25→20:00)
[2019-07-22] MEDS: TAMSULOSIN 0.4 MG SR CAP PO SCH (07:26)
[2019-07-22] MEDS: LIDOCAINE 4% PATCH TOP SCH (08:38)
--- NOTE | 2019-07-22 12:37 | FAST ---
ENCOUNTER DATE AND TIME: 07/22/2019 08:00 (CDT) NAME YAMILKA GIORDANO DATE OF : 1935 DATE OF ADMISSION: 07/09/2019 18:23 (CDT) PHONE: AGE: 84 N# [id number] GENDER: Female ENCOUNTER PHYSICIAN: Dr. Ryan Medina M.D. ADMISSION DIAGNOSIS: - Debility 16 - Debility (16) BOWEL RESECTION/BOWEL OBSTRUCTION. EATING: Not assessed/no information CODE: - ORAL HYGIENE: ORAL HYGIENE - STEP 1: Does the patient complete the activity by him/herself with no assistance (physical, verbal/nonverbal cueing, setup/clean-up)? Yes. 1. [id number] ADMISSION PERFORMANCE: Independent CODE: 06 TOILETING HYGIENE: Not assessed/no information CODE: - BATHING: SHOWER/BATHE SELF - STEP 1: Does the patient complete the activity by him/herself with no assistance (physical, verbal/nonverbal cueing, setup/clean-up)? No. SHOWER/BATHE SELF - STEP 2: Does the patient need only setup/clean-up assistance from one helper? No. SHOWER/BATHE SELF - STEP 3: Does the patient need only verbal/nonverbal cueing or touching/steadying/contact guard assistance fro m one helper? Yes. 1. [id number] ADMISSION PERFORMANCE: Supervision or touching assistance CODE: 04 DRESSING - UPPER BODY: DRESSING - UPPER BODY - STEP 1: Does the patient complete the activity by him/herself with no assistance (physical, verbal/nonverbal cueing, setup/clean-up)? No. DRESSING - UPPER BODY - STEP 2: Does the patient need only setup/clean-up assistance from one helper? Yes. 1. [id number] ADMISSION PERFORMANCE: Setup or clean-up assistance CODE: 05 DRESSING - LOWER BODY: DRESSING - LOWER BODY - STEP 1: Does the patient complete the activity by him/herself with no assistance (physical, verbal/nonverbal cueing, setup/clean-up)? No. DRESSING - LOWER BODY - STEP 2: Does the patient need only setup/clean-up assistance from one helper? No. DRESSING - LOWER BODY - STEP 3: Does the patient need only verbal/nonverbal cueing or touching/steadying/contact guard assistance fro m one helper? Yes. 1. [id number] ADMISSION PERFORMANCE: Supervision or touching assistance CODE: 04 PUTTING ON/TAKING OFF FOOTWEAR: FOOTWEAR - STEP 1: Does the patient complete the activity by him/herself with no assistance (physical, verbal/nonverbal cueing, setup/clean-up)? No. FOOTWEAR - STEP 2: Does the patient need only setup/clean-up assistance from one helper? No. FOOTWEAR - STEP 3: Does the patient need only verbal/nonverbal cueing or touching/steadying/contact guard assistance fro m one helper? Yes. 1. [id number] ADMISSION PERFORMANCE: Supervision or touching assistance CODE: 04 DOES THE PATIENT USE A WHEELCHAIR/SCOOTER? CODE: EXPR INDICATE THE TYPE OF WHEELCHAIR/SCOOTER USED: CODE: EXPR INDICATE THE TYPE OF WHEELCHAIR/SCOOTER USED: CODE: EXPR BLADDER AND BOWEL: CODE: EXPR CODE: EXPR SIGNATURE PANEL: The following modified sections: 1. [id number] Admission Performance, 1. [id number] Admission Performance, 1. [id number] Admission Performance, 1. [id number] Admission Performance, 1. [id number] Admission Performance were [electronically] signed by EDD Morejon on SatJul 22 2019 12:35:43 T-0500 (Central Daylight Time)
--- NOTE | 2019-07-22 13:46 | FAST ---
ENCOUNTER DATE AND TIME: 07/22/2019 08:00 (CDT) NAME YAMILKA GIORDANO DATE OF : 1935 DATE OF ADMISSION: 07/09/2019 18:23 (CDT) PHONE: AGE: 84 N# [id number] GENDER: Female ENCOUNTER PHYSICIAN: Dr. Ryan Medina M.D. ADMISSION DIAGNOSIS: - Debility 16 - Debility (16) BOWEL RESECTION/BOWEL OBSTRUCTION. ROLL LEFT AND RIGHT: ROLL LEFT AND RIGHT - STEP 1: Does the patient complete the activity by him/herself with no assistance (physical, verbal/nonverbal cueing, setup/clean-up)? Yes. 1. [id number] ADMISSION PERFORMANCE: Independent CODE: 06 SIT TO LYING: SIT TO LYING - STEP 1: Does the patient complete the activity by him/herself with no assistance (physical, verbal/nonverbal cueing, setup/clean-up)? Yes. 1. [id number] ADMISSION PERFORMANCE: Independent CODE: 06 LYING TO SITTING: LYING TO SITTING ON SIDE OF BED - STEP 1: Does the patient complete the activity by him/herself with no assistance (physical, verbal/nonverbal cueing, setup/clean-up)? Yes. 1. [id number] ADMISSION PERFORMANCE: Independent CODE: 06 SIT TO STAND: SIT TO STAND - STEP 1: Does the patient complete the activity by him/herself with no assistance (physical, verbal/nonverbal cueing, setup/clean-up)? Yes. 1. [id number] ADMISSION PERFORMANCE: Independent CODE: 06 TRANSFERS: BED, CHAIR: CHAIR/[id number] TRANSFER - STEP 1: Does the patient complete the activity by him/herself with no assistance (physical, verbal/nonverbal cueing, setup/clean-up)? No. CHAIR/[id number] TRANSFER - STEP 2: Does the patient need only setup/clean-up assistance from one helper? Yes. 1. [id number] ADMISSION PERFORMANCE: Setup or clean-up assistance CODE: 05 TRANSFER TOILET: TOILET TRANSFER - STEP 1: Does the patient complete the activity by him/herself with no assistance (physical, verbal/nonverbal cueing, setup/clean-up)? Yes. 1. [id number] ADMISSION PERFORMANCE: Independent CODE: 06 TRANSFERS: CAR: CAR TRANSFER - STEP 1: Does the patient complete the activity by him/herself with no assistance (physical, verbal/nonverbal cueing, setup/clean-up)? No. CAR TRANSFER - STEP 2: Does the patient need only setup/clean-up assistance from one helper? Yes. 1. [id number] ADMISSION PERFORMANCE: Setup or clean-up assistance CODE: 05 WALK 10 FEET: WALK 10 FEET - STEP 1: Does the patient complete the activity by him/herself with no assistance (physical, verbal/nonverbal cueing, setup/clean-up)? No. WALK 10 FEET - STEP 2: Does the patient need only setup/clean-up assistance from one helper? Yes. 1. [id number] ADMISSION PERFORMANCE: Setup or clean-up assistance CODE: WALK 50 FEET: WALK 50 FEET - STEP 1: Does the patient complete the activity by him/herself with no assistance (physical, verbal/nonverbal cueing, setup/clean-up)? No. WALK 50 FEET - STEP 2: Does the patient need only setup/clean-up assistance from one helper? Yes. 1. [id number] ADMISSION PERFORMANCE: Setup or clean-up assistance CODE: 05 WALK 150 FEET: WALK 150 FEET - STEP 1: Does the patient complete the activity by him/herself with no assistance (physical, verbal/nonverbal cueing, setup/clean-up)? No. WALK 150 FEET - STEP 2: Does the patient need only setup/clean-up assistance from one helper? Yes. 1. [id number] ADMISSION PERFORMANCE: Setup or clean-up assistance CODE: 05 WALK 10 FEET UNEVEN: Not attempted due to medical condition or safety concerns CODE: 88 1 STEP (CURB): 1 STEP CURB - STEP 1: Does the patient complete the activity by him/herself with no assistance (physical, verbal/nonverbal cueing, setup/clean-up)? No. 1 STEP CURB - STEP 2: Does the patient need only setup/clean-up assistance from one helper? Yes. 1. [id number] ADMISSION PERFORMANCE: Setup or clean-up assistance CODE: 4 STEPS: 4 STEPS - STEP 1: Does the patient complete the activity by him/herself with no assistance (physical, verbal/nonverbal cueing, setup/clean-up)? No. 4 STEPS - STEP 2: Does the patient need only setup/clean-up assistance from one helper? Yes. 1. [id number] ADMISSION PERFORMANCE: Setup or clean-up assistance CODE: 05 12 STEPS: 12 STEPS - STEP 1: Does the patient complete the activity by him/herself with no assistance (physical, verbal/nonverbal cueing, setup/clean-up)? No. 12 STEPS - STEP 2: Does the patient need only setup/clean-up assistance from one helper? Yes. 1. [id number] ADMISSION PERFORMANCE: Setup or clean-up assistance CODE: 05 PICKING UP OBJECT: Not attempted due to medical condition or safety concerns CODE: 88 DOES THE PATIENT USE A WHEELCHAIR/SCOOTER? Q1. DOES THE PATIENT USE A WHEELCHAIR/SCOOTER?: Yes CODE: 1 WHEEL 50 FEET WITH TWO TURNS: WHEEL 50 FEET WITH TWO TURNS - STEP 1: Does the patient complete the activity by him/herself with no assistance (physical, verbal/nonverbal cueing, setup/clean-up)? No. WHEEL 50 FEET WITH TWO TURNS - STEP 2: Does the patient need only setup/clean-up assistance from one helper? Yes. 1. [id number] ADMISSION PERFORMANCE: Setup or clean-up assistance CODE: 05 INDICATE THE TYPE OF WHEELCHAIR/SCOOTER USED: RR1. INDICATE THE TYPE OF WHEELCHAIR/SCOOTER USED.: Manual CODE: 1 WHEEL 150 FEET: WHEEL 150 FEET - STEP 1: Does the patient complete the activity by him/herself with no assistance (physical, verbal/nonverbal cueing, setup/clean-up)? No. WHEEL 150 FEET - STEP 2: Does the patient need only setup/clean-up assistance from one helper? Yes. 1. [id number] ADMISSION PERFORMANCE: Setup or clean-up assistance CODE: 05 INDICATE THE TYPE OF WHEELCHAIR/SCOOTER USED: SS1. INDICATE THE TYPE OF WHEELCHAIR/SCOOTER USED.: Manual CODE: 1 BLADDER AND BOWEL: CODE: EXPR CODE: EXPR SIGNATURE PANEL: The following modified sections: 1. [id number] Admission Performance, 1. [id number] Admission Performance, 1. HF0618T Admission Performance, 1. PB0761E Admission Performance, 1. [id number] Admission Performance, 1. AV8933B Admission Performance, 1. GJ5188M Admission Performance, 1. UZ8843P Admission Performance , 1. WU6310F Admission Performance, 1. ZU1871Q Admission Performance, 1. DZ7320K Admission Performanc e, 1. JN3157H Admission Performance, 1. AX1882A Admission Performance, Q1. Does the patient use a whe elchair/scooter?, 1. LZ7532M Admission Performance, RR1. Indicate the type of wheelchair/scooter used ., 1. [id number] Admission Performance, Code, SS1. Indicate the type of wheelchair/scooter used. were [e lectronically] signed by Tracie Buckley, EX CHEF on SatJul 22 2019 13:45:50 T-0500 ([facility] Time)
--- NOTE | 2019-07-22 17:14 | FAST ---
SHIFT START DATE/TIME: 07/22/2019 07:00 (CDT) SHIFT END DATE/TIME: 07/22/2019 19:00 (CDT) NAME YAMILKA GIORDANO DATE OF : 1935 DATE OF ADMISSION: 07/09/2019 18:23 (CDT) PHONE: AGE: 84 N# [id number] GENDER: Female ENCOUNTER PHYSICIAN: Dr. Ryan Medina M.D. ADMISSION DIAGNOSIS: - Debility 16 - Debility (16) BOWEL RESECTION/BOWEL OBSTRUCTION. EATING: EATING - STEP 1: Does the patient complete the activity by him/herself with no assistance (physical, verbal/nonverbal cueing, setup/clean-up)? No. EATING - STEP 2: Does the patient need only setup/clean-up assistance from one helper? Yes. 1. [id number] ADMISSION PERFORMANCE: Setup or clean-up assistance CODE: 05 ORAL HYGIENE: ORAL HYGIENE - STEP 1: Does the patient complete the activity by him/herself with no assistance (physical, verbal/nonverbal cueing, setup/clean-up)? No. ORAL HYGIENE - STEP 2: Does the patient need only setup/clean-up assistance from one helper? Yes. 1. [id number] ADMISSION PERFORMANCE: Setup or clean-up assistance CODE: 05 TOILETING HYGIENE: TOILETING HYGIENE - STEP 1: Does the patient complete the activity by him/herself with no assistance (physical, verbal/nonverbal cueing, setup/clean-up)? No. TOILETING HYGIENE - STEP 2: Does the patient need only setup/clean-up assistance from one helper? Yes. 1. [id number] ADMISSION PERFORMANCE: Setup or clean-up assistance CODE: 05 BATHING: Not assessed/no information CODE: - DRESSING - UPPER BODY: DRESSING - UPPER BODY - STEP 1: Does the patient complete the activity by him/herself with no assistance (physical, verbal/nonverbal cueing, setup/clean-up)? No. DRESSING - UPPER BODY - STEP 2: Does the patient need only setup/clean-up assistance from one helper? Yes. 1. [id number] ADMISSION PERFORMANCE: Setup or clean-up assistance CODE: 05 DRESSING - LOWER BODY: DRESSING - LOWER BODY - STEP 1: Does the patient complete the activity by him/herself with no assistance (physical, verbal/nonverbal cueing, setup/clean-up)? No. DRESSING - LOWER BODY - STEP 2: Does the patient need only setup/clean-up assistance from one helper? No. DRESSING - LOWER BODY - STEP 3: Does the patient need only verbal/nonverbal cueing or touching/steadying/contact guard assistance fro m one helper? Yes. 1. ADMISSION PERFORMANCE: Supervision or touching assistance CODE: 04 PUTTING ON/TAKING OFF FOOTWEAR: FOOTWEAR - STEP 1: Does the patient complete the activity by him/herself with no assistance (physical, verbal/nonverbal cueing, setup/clean-up)? No. FOOTWEAR - STEP 2: Does the patient need only setup/clean-up assistance from one helper? No. FOOTWEAR - STEP 3: Does the patient need only verbal/nonverbal cueing or touching/steadying/contact guard assistance fro m one helper? Yes. 1. ADMISSION PERFORMANCE: Supervision or touching assistance CODE: 04 DOES THE PATIENT USE A WHEELCHAIR/SCOOTER? CODE: EXPR INDICATE THE TYPE OF WHEELCHAIR/SCOOTER USED: CODE: EXPR INDICATE THE TYPE OF WHEELCHAIR/SCOOTER USED: CODE: EXPR BLADDER AND BOWEL: H350. BLADDER CONTINENCE (3-DAY ASSESSMENT PERIOD): Always continent (no documented incontinence) CODE: 0 H400. BOWEL CONTINENCE (3-DAY ASSESSMENT PERIOD): Always continent CODE: 0 SIGNATURE PANEL: The following modified sections: 1. [id number] Admission Performance, 1. VT7140U Admission Performance, 1. KS2213Q Admission Performance, 1. FG7117i Admission Performance, 1. XW8462v Admission Performance, 1. XX5891u Admission Performance, 1. KM5492i Admission Performance, 1. NK8558p Admission Performance , H350. Bladder Continence (3-day assessment period), H400. Bowel Continence (3-day assessment period ) were [electronically] signed by Ankita RenaeNAndrés on SatJul 22 2019 17:13:27 GMT-0500 (Central Daylight Time)
--- NOTE | 2019-07-22 17:47 | R.PN ---
ENCOUNTER DATE AND TIME: 07/22/2019 17:41 (CDT) NAME YAMILKA GIORDANO DATE OF : 1935 DATE OF ADMISSION: 07/09/2019 18:23 (CDT) BOWEL RESECTION/BOWEL OBSTRUCTIONCHIEF COMPLAINT: Debility after bowel resection. SUBJECTIVE: Pt denied any depression. Pt denied any Shortness of Breath. WBC 5.4, Hgb 8.6, Plt 206, glucose 89, Community Service Representative 1.19, prealbumin 17.8. Therapeutic exercises done with mod erate assistance. Ambulated 750' with standby assistance, using a rolling walker. Mobilized wheelchair 250' with standb y assistance. Repeat UA done 07-20-19 shows 3+ esterase, < 20 bacteria, yeast present and 2+ protein, cultures are p ending. Cultures show < 10,000 CFU with no bacterial growth. She is now on Miconazole 2% vaginally at bedtime for 3 days. VITAL SIGNS Temperature: 98.7 F SBP/DBP: 127/63 Pulse: 81 Resp: 16 MEDICATION ALLERGIES: No Known Drug Allergies (NKDA) ENVIRONMENTAL ALLERGIES: - Substance Allergies None Known - Other Allergies None Known NURSING: - Shower allowing shower ACTIVITIES OOB only with supervision THERAPIES: - Dietary and Nutrition Adequate Nutrition. Nutritional Education. Nutritional Supplements. PHYSICAL EXAM - Gen Alert and awake Lying in bed No apparent distress Oriented to: person, time, and place - Skin No skin breakdown. Normacephalic - Eyes No abnormalities - ENMT No abnormalities - Neck No abnormalities - CVS RRR - Chest No abnormalities - Resp Clear to auscultation - Abd Soft - GI Non distended Deferred - No abnormalities - Ext No significant edema - MSK Unremarkable - Neuro No focal deficits - Psych No abnormalities ASSESSMENT: Pt. is a 84 yo Right-handed white female.On 05/25/2019 she was admitted to [facility] with diagnosis BOW EL RESECTION/BOWEL OBSTRUCTION.Her impairment category is Debility 16 - Debility (16).Pre-morbidly, Pt. was independent/mod-I in Locomotion, Transfers Control, Self-Care, and Endurance; and she had goo d Safety Awareness, Social Cognition, Sphincter Control, Communication, Endurance, and Balance.Curren tly, she has deficits of Locomotion, Balance, Transfers Control, Self-Care, Endurance, Safety Awarene ss, Social Cognition, and Sphincter Control.Pt. is now referred to [facility] for acute in-patient rehabilitation in order to maximize patient's functional independence in activit ies of daily living, strength, ROM, and mobility.- Rehab Goal Patient has realistic goal of being discharged at assistance level 6-[place]ell to reside at Home with Fam martha/Relatives. MDM/PLAN: - Physical Therapy Gait dysfunction - to improve, our physical therapists will perform initial evaluation of pt's statu s upon admission and devise an individualized program for Gait Training, and Wheel Chair mobility Inability to transfer - to improve, our physical therapists will perform initial evaluation of pt's status upon admission and devise an individualized program for Bed mobility Need for home safety evaluation - to improve, our physical therapists will perform initial evaluatio n of pt's status upon admission and devise an individualized program for Home Evaluation Need in caregiver upon discharge - to improve, our physical therapists will perform initial evaluati on of pt's status upon admission and devise an individualized program for Caregiver Training Edema - to improve, our physical therapists will perform initial evaluation of pt's status upon admi ssion and devise an individualized program for Elevation Training, and Lymphedema Therapy New precaution - to improve, our physical therapists will perform initial evaluation of pt's status upon admission and devise an individualized program for Patient precaution education Poor balance - to improve, our physical therapists will perform initial evaluation of pt's status up on admission and devise an individualized program for Balance Training Poor endurance - to improve, our physical therapists will perform initial evaluation of pt's status upon admission and devise an individualized program for Endurance Training Weakness - to improve, our physical therapists will perform initial evaluation of pt's status upon a dmission and devise an individualized program for Aquatic Therapy, Neuromuscular Reeducation, and Str engthening Achieving independence - to improve, our physical therapists will perform initial evaluation of pt's status upon admission and devise an individualized program for Community Reintegration Activities - Occupational Therapy ADL deficits - to improve, our occupation therapists will perform initial evaluation of pt's status upon admission and devise an individualized program for Bathing, Bed mobility, Community Reintegratio n, Cooking, Dressing, Eating, Fine Motor Skills, Grooming, Homemaking, Kitchen Mobility, Laundry, Pat ient Education, Safety Awareness, Splinting - Positioning, Transfers(Toilet, Tub, Shower), and Wheel Chair Management Cognitive deficits - to improve, our occupation therapists will perform initial evaluation of pt's s tatus upon admission and devise an individualized program for Cognition - orientation Need for child care centre manager - to improve, our occupation therapists will perform initial evaluation of pt's status upon admission and devise an individualized program for Caregiver Training Weakness - to improve, our occupation therapists will perform initial evaluation of pt's status upon admission and devise an individualized program for Aquatic Therapy, Balance, Endurance, UE ROM, and UE strengthening - Other See attached MAR (Medication Administration Record) - Diet Type Continue Regular - Diet - Liquid Texture Continue Regular - Tube Feed Continue N/A - Diet - Solid Texture Continue Regular - Shower allowing shower FUNCTIONAL STATUS: - Self-Care A. Eating [place] B. Grooming sup C. Bathing modA D. Dressing - [place] E. Dressing - Lower modA F. Toileting modA - Sphincter Control G. Bladder control [place] H. Bowel control [place] - Transfers Control I. Bed/Chair/Wheelchair modA J. Toilet modA K. Tub/Shower modA - Locomotion L. Walk/Wheelchair (B) modA M. Stairs Dep - Communication N. Comprehension (B) sup O. Expression (B) sup - Social Cognition P. Social Interaction [place] Q. Problem Solving modA R. Memory [place] - Endurance Fair - Balance Fair - Safety Awareness Fair QI SCORES: - Self-Care A. Eating 05-Setup or clean-up assistance B. Oral hygiene 05-Setup or clean-up assistance C. Toileting hygiene 01-Dependent E. Shower/bathe self 03-Partial/moderate assistance F. Upper body dressing 04-Supervision or touching assistance G. Lower body dressing 03-Partial/moderate assistance H. Putting on/taking off footwear 02-Substantial/maximal assistance - Mobility A. Roll left and right 04-Supervision or touching assistance B. Sit to lying 04-Supervision or touching assistance C. Lying to sitting on side of bed 04-Supervision or touching assistance D. Sit to stand 04-Supervision or touching assistance E. Chair/[id number] transfer 04-Supervision or touching assistance F. Toilet transfer 04-Supervision or touching assistance G. Car transfer 88-Not attempted due to medical condition or safety concerns I. Walk 10 feet 03-Partial/moderate assistance E. Chair/[id number] transfer 03-Partial/moderate assistance K. Walk 150 feet 88-Not attempted due to medical condition or safety concerns L. Walking 10 feet on uneven surfaces 88-Not attempted due to medical condition or safety concerns M. 1 step (curb) 88-Not attempted due to medical condition or safety concerns N. 4 steps 88-Not attempted due to medical condition or safety concerns O. 12 steps 88-Not attempted due to medical condition or safety concerns P. Picking up object 88-Not attempted due to medical condition or safety concerns R. Wheel 50 feet with two turns S. Wheel 150 feet - Bladder and Bowel Bladder continence 4-Always incontinent Bowel continence 9-Not rated - Endurance Poor - Balance Poor - Safety Awareness Poor CURRENT FUNC. DEFICITS: Self-Care, Mobility, Endurance, Balance, and Safety Awareness SIGNATURE PANEL: (CDT)
[2019-07-22] MEDS: ACETAMINOPHEN 325 MG TABLET PO PRN (19:59)
[2019-07-22] MEDS: MICONAZOLE 7 APPL/48 GM TUBE VAG SCH (19:59)
[2019-07-23] MEDS: METOPROLOL TAR 25 MG TAB PO SCH (06:00)
[2019-07-23 06:16] LABS: Albumin 2.2 g/dL (3.4-5.0); Potassium 3.9 mmol/L (3.5-5.1); Prealbumin 18.3 mg/dL (20-40)
[2019-07-23 06:23] LABS: Absolute Lymphocytes (CBC) 1.5 K/uL (0.7-4.9); Basophils % 0.6 % (0-1.3); Hematocrit 26.8 % (36.0-45.0); Lymphocytes % 27.4 % (15.3-44.8); MPV 10.2 fL (7.6-11.3); RBC Red Blood Cell Count 3.03 M/uL (3.86-4.86)
[2019-07-23] MEDS: ENSURE ENLIVE 237 ML CAN PO SCH (08:00)
[2019-07-23] MEDS: PROMOD 30 ML DOSE PO SCH (08:00)
[2019-07-23] MEDS: ENOXAPARIN 30 MG/0.3 ML SQ SCH (08:27)
[2019-07-23] MEDS: LIDOCAINE 4% PATCH TOP SCH (08:27)
[2019-07-23] MEDS: CRANBERRY FRUIT EXTRACT 200 MG CAP PO SCH (08:27)
[2019-07-23 08:28] VITALS: BP 109/58
[2019-07-23] MEDS: ASCORBIC ACID 500 MG TABLET PO SCH (08:28)
[2019-07-23] MEDS: PANTOPRAZOLE 40MG TABLET PO SCH (08:28)
[2019-07-23] MEDS: TAMSULOSIN 0.4 MG SR CAP PO SCH (08:28)
[2019-07-23] MEDS: THIAMINE HCL 100 MG TABLET PO SCH (08:28)
[2019-07-23] MEDS: LACTOBACILLUS/ACIDOPHILUS TAB PO SCH (08:28)
[2019-07-23] MEDS: VITAMIN D 5,000 UNIT CAP PO SCH (08:28)
[2019-07-23] MEDS: FE SULF/FA/VIT B COMP & C TAB PO SCH (08:29)
[2019-07-23 11:07] VITALS: TEMP 98.8
--- NOTE | 2019-07-23 15:09 | R.PN ---
ENCOUNTER DATE AND TIME: 07/23/2019 15:01 (CDT) NAME YAMILKA GIORDANO DATE OF : 1935 DATE OF ADMISSION: 07/09/2019 18:23 (CDT) BOWEL RESECTION/BOWEL OBSTRUCTIONCHIEF COMPLAINT: Debility after bowel resection. SUBJECTIVE: Pt denied any depression. Pt denied any Shortness of Breath. WBC 5.3, Hgb 8.6, Plt 223, glucose 89, [employer] Supervisor 1.07, prealbumin 18.3. Urine cultures from 07-20-19 shows m ixed jose alfredo. ESBL EColi is now NEGATIVE. Therapeutic exercises done with moderate assistance. Ambulated 750' with standby assistance, using a rolling walker. Mobilized wheelchair 250' with standb y assistance. She will be discharged to SNF today and continue physical therapy. VITAL SIGNS Temperature: 98.8 F SBP/DBP: 109/58 Pulse: 65 Resp: 14 MEDICATION ALLERGIES: No Known Drug Allergies (NKDA) ENVIRONMENTAL ALLERGIES: - Substance Allergies None Known - Other Allergies None Known NURSING: - Shower allowing shower ACTIVITIES OOB only with supervision THERAPIES: - Dietary and Nutrition Adequate Nutrition. Nutritional Education. Nutritional Supplements. PHYSICAL EXAM - Gen Alert and awake Lying in bed No apparent distress Oriented to: person, time, and place - Skin No skin breakdown. Normacephalic - Eyes No abnormalities - ENMT No abnormalities - Neck No abnormalities - CVS RRR - Chest No abnormalities - Resp Clear to auscultation - Abd Soft - GI Non distended Deferred - No abnormalities - Ext No significant edema - MSK Unremarkable - Neuro No focal deficits - Psych No abnormalities ASSESSMENT: Pt. is a 84 yo Right-handed white female.On 05/25/2019 she was admitted to [facility] with diagnosis BOW EL RESECTION/BOWEL OBSTRUCTION.Her impairment category is Debility 16 - Debility (16).Pre-morbidly, Pt. was independent/mod-I in Locomotion, Transfers Control, Self-Care, and Endurance; and she had goo d Safety Awareness, Social Cognition, Sphincter Control, Communication, Endurance, and Balance.Curren tly, she has deficits of Locomotion, Balance, Transfers Control, Self-Care, Endurance, Safety Awarene ss, Social Cognition, and Sphincter Control.Pt. is now referred to [facility] for acute in-patient rehabilitation in order to maximize patient's functional independence in activit ies of daily living, strength, ROM, and mobility.- Rehab Goal Patient has realistic goal of being discharged at assistance level 6-Odell to reside at Home with Fam martha/Relatives. MDM/PLAN: - Physical Therapy Gait dysfunction - to improve, our physical therapists will perform initial evaluation of pt's statu s upon admission and devise an individualized program for Gait Training, and Wheel Chair mobility Inability to transfer - to improve, our physical therapists will perform initial evaluation of pt's status upon admission and devise an individualized program for Bed mobility Need for home safety evaluation - to improve, our physical therapists will perform initial evaluatio n of pt's status upon admission and devise an individualized program for Home Evaluation Need in caregiver upon discharge - to improve, our physical therapists will perform initial evaluati on of pt's status upon admission and devise an individualized program for Caregiver Training Edema - to improve, our physical therapists will perform initial evaluation of pt's status upon admi ssion and devise an individualized program for Elevation Training, and Lymphedema Therapy New precaution - to improve, our physical therapists will perform initial evaluation of pt's status upon admission and devise an individualized program for Patient precaution education Poor balance - to improve, our physical therapists will perform initial evaluation of pt's status up on admission and devise an individualized program for Balance Training Poor endurance - to improve, our physical therapists will perform initial evaluation of pt's status upon admission and devise an individualized program for Endurance Training Weakness - to improve, our physical therapists will perform initial evaluation of pt's status upon a dmission and devise an individualized program for Aquatic Therapy, Neuromuscular Reeducation, and Str engthening Achieving independence - to improve, our physical therapists will perform initial evaluation of pt's status upon admission and devise an individualized program for Community Reintegration Activities - Occupational Therapy ADL deficits - to improve, our occupation therapists will perform initial evaluation of pt's status upon admission and devise an individualized program for Bathing, Bed mobility, Community Reintegratio n, Cooking, Dressing, Eating, Fine Motor Skills, Grooming, Homemaking, Kitchen Mobility, Laundry, Pat ient Education, Safety Awareness, Splinting - Positioning, Transfers(Toilet, Tub, Shower), and Wheel Chair Management Cognitive deficits - to improve, our occupation therapists will perform initial evaluation of pt's s tatus upon admission and devise an individualized program for Cognition - orientation Need for skin care technician - to improve, our occupation therapists will perform initial evaluation of pt's status upon admission and devise an individualized program for Caregiver Training Weakness - to improve, our occupation therapists will perform initial evaluation of pt's status upon admission and devise an individualized program for Aquatic Therapy, Balance, Endurance, UE ROM, and UE strengthening - Other See attached MAR (Medication Administration Record) - Diet Type Continue Regular - Diet - Liquid Texture Continue Regular - Tube Feed Continue N/A - Diet - Solid Texture Continue Regular - Shower allowing shower FUNCTIONAL STATUS: - Self-Care A. Eating [place] B. Grooming sup C. Bathing modA D. Dressing - [place] E. Dressing - Lower modA F. Toileting modA - Sphincter Control G. Bladder control [place] H. Bowel control [place] - Transfers Control I. Bed/Chair/Wheelchair modA J. Toilet modA K. Tub/Shower modA - Locomotion L. Walk/Wheelchair (B) modA M. Stairs Dep - Communication N. Comprehension (B) sup O. Expression (B) sup - Social Cognition P. Social Interaction [place] Q. Problem Solving modA R. Memory [place] - Endurance Fair - Balance Fair - Safety Awareness Fair QI SCORES: - Self-Care A. Eating 05-Setup or clean-up assistance B. Oral hygiene 05-Setup or clean-up assistance C. Toileting hygiene 01-Dependent E. Shower/bathe self 03-Partial/moderate assistance F. Upper body dressing 04-Supervision or touching assistance G. Lower body dressing 03-Partial/moderate assistance H. Putting on/taking off footwear 02-Substantial/maximal assistance - Mobility A. Roll left and right 04-Supervision or touching assistance B. Sit to lying 04-Supervision or touching assistance C. Lying to sitting on side of bed 04-Supervision or touching assistance D. Sit to stand 04-Supervision or touching assistance E. Chair/eqc-nr-holmj transfer 04-Supervision or touching assistance F. Toilet transfer 04-Supervision or touching assistance G. Car transfer 88-Not attempted due to medical condition or safety concerns I. Walk 10 feet 03-Partial/moderate assistance E. Chair/oae-fa-uuany transfer 03-Partial/moderate assistance K. Walk 150 feet 88-Not attempted due to medical condition or safety concerns L. Walking 10 feet on uneven surfaces 88-Not attempted due to medical condition or safety concerns M. 1 step (curb) 88-Not attempted due to medical condition or safety concerns N. 4 steps 88-Not attempted due to medical condition or safety concerns O. 12 steps 88-Not attempted due to medical condition or safety concerns P. Picking up object 88-Not attempted due to medical condition or safety concerns R. Wheel 50 feet with two turns S. Wheel 150 feet - Bladder and Bowel Bladder continence 4-Always incontinent Bowel continence 9-Not rated - Endurance Poor - Balance Poor - Safety Awareness Poor CURRENT FUNC. DEFICITS: Self-Care, Mobility, Endurance, Balance, and Safety Awareness SIGNATURE PANEL: (CDT)
--- NOTE | 2019-07-24 13:18 | R.DS ---
FACILITY [facility] MR# [id number] NAME YAMILKA ANDUJAR ADDRESS [address] [place] [address] [address] [id number] PHONE DATE OF 1935 AGE 84 SSN# [id number] GENDER Female DEXTERITY Right-handed MARITAL STATUS RACE White ENCOUNTER PHYSICIAN Dr. Ryan Medina M.D. REFERRING DOCTOR DR. VICKI RIVAS REFERRING FACILITY [facility] DISCHARGE DIAGNOSIS: - Debility 16 - Debility (16) BOWEL RESECTION/BOWEL OBSTRUCTION. DATE OF ADMISSION 07/09/2019 18:23 (CDT) MEDICATION ALLERGIES: No Known Drug Allergies (NKDA) ENVIRONMENTAL ALLERGIES: - Substance Allergies None Known - Other Allergies None Known DISCHARGE MEDICATIONS: Other- ContinueSee attached MAR (Medication Administration Record). NURSING: - Shower allowing shower ACTIVITIES OOB only with supervision THERAPIES: - Dietary and Nutrition Adequate Nutrition Nutritional Education Nutritional Supplements HISTORY OF PRESENT ILLNESS: Pt. is a 84 yo Right-handed white female.On 05/25/2019 she was admitted to [facility] with diagnosis BOW EL RESECTION/BOWEL OBSTRUCTION.Her impairment category is Debility 16 - Debility (16).Pre-morbidly, Pt. was independent/mod-I in Locomotion, Transfers Control, Self-Care, and Endurance; and she had goo d Safety Awareness, Social Cognition, Sphincter Control, Communication, Endurance, and Balance.Curren tly, she has deficits of Locomotion, Balance, Transfers Control, Self-Care, Endurance, Safety Awarene ss, Social Cognition, and Sphincter Control.Pt. is now referred to [facility] for acute in-patient rehabilitation in order to maximize patient's functional independence in activit ies of daily living, strength, ROM, and mobility.- Rehab Goal Patient has realistic goal of being discharged at assistance level 6-Odell to reside at Home with Fam martha/Relatives. Mrs. Yamilka Andujar is an 84 year old female who prior to her current illness lived at home, in a private one story home with no steps, independently. Mrs. Andujar was independent and active both in the community and in the household. Mrs. Andujar was also driving. Mrs. Andujar underwent a scheduled robotic low anterior bowel resection on 05/25/19 with colo-rectal anastomosis, splenic flexure mobilization, en bloc left oophorectomy, and incisional VAC placement and was taken to PACU for recovery. Mrs. Andujar was reintubated due to hypotension in PACU. Pt was extubated 05/27/19. Abdominal CT performed 05/29/19 revealed a high-grade small bowel obstruction. At that time NGT was placed and and TPN was later started 05/30. Subsequent SBFT on 05/31 showed passage of contrast into colon and NGT was removed. A repeat CTAP obtained 06/09 revealed a new large peripancreatic fluid collection and Mrs. Andujar underwent IR drainage 06/10 with positive fluid amylase consistent with pancreas leak. A percutaneous drainage catheter was placed. Mrs. Andujar was discharged to LTAC facility 06/20 to continue TPN for severe protein-caloric malnutrition. At this time Mrs. Andujar was afebrile with normal vitals, making adequate urine output via indwelling catheter, and tolerating a GI soft diet. Patient has now completed her TPN therapy, is medically stable but in need of 24-hour nursing, doctor supervision and oversight while receiving active and ongoing intensive (PT, OT and/or SPT). The patient is reasonably expected to participate in 3 hours of therapy a day/15 hours per week and receive care with intensive interdisciplinary approach. COVID-19 screening performed with nurse caring for patient at LTAC. She denies patient having any new onset of fever, cough, difficulty breathing, sore throat, body aches or non-allergy nasal congestion in the past 24 hours. Patient has not traveled outside of [place] in the past 14 days. Patient has had no contact with someone who has a confirmed diagnosis of or is under investigation for COVID-19 in the past 14 days.HOSPITAL COURSE: DIET - LIQUID TEXTURE: On 07/01/2019 Pt was upgraded to Regular Diet - Liquid Texture. DIET - SOLID TEXTURE: On 07/01/2019 Pt was upgraded to Regular Diet - Solid Texture. DIET TYPE: On 07/01/2019 Pt was upgraded to Regular Diet Type. TUBE FEED: On 07/01/2019 Pt was changed to N/A Tube Feed. DISCHARGE PHYSICAL EXAM - Gen Alert and awake Lying in bed No apparent distress Oriented to: person, time, and place - Skin No skin breakdown. Normacephalic - Eyes No abnormalities - ENMT No abnormalities - Neck No abnormalities - CVS RRR - Chest No abnormalities - Resp Clear to auscultation - Abd Soft - GI Non distended Deferred - No abnormalities - Ext No significant edema - MSK Unremarkable - Neuro No focal deficits - Psych No abnormalities FUNCTIONAL STATUS: - Self-Care A. Eating 6-Odell B. Grooming 6-Odell C. Bathing 6-Odell D. Dressing - Upper 6-Odell E. Dressing - Lower 6-Odell F. Toileting 6-Odell - Sphincter Control G. Bladder control 5-sup H. Bowel control 5-sup - Transfers Control I. Bed/Chair/Wheelchair 6-Odell J. Toilet 6-Odell K. Tub/Shower 6-Odell - Locomotion L. Walk/Wheelchair (B) 6-Odell M. Stairs 6-Odell - Communication N. Comprehension (B) 5-sup O. Expression (B) 5-sup - Social Cognition P. Social Interaction 6-Odell Q. Problem Solving 5-sup R. Memory 5-sup - Endurance Good - Balance Good - Safety Awareness Good QI SCORES: - Self-Care A. Eating 05-Setup or clean-up assistance B. Oral hygiene 05-Setup or clean-up assistance C. Toileting hygiene 01-Dependent E. Shower/bathe self 03-Partial/moderate assistance F. Upper body dressing 04-Supervision or touching assistance G. Lower body dressing 03-Partial/moderate assistance H. Putting on/taking off footwear 02-Substantial/maximal assistance - Mobility A. Roll left and right 04-Supervision or touching assistance B. Sit to lying 04-Supervision or touching assistance C. Lying to sitting on side of bed 04-Supervision or touching assistance D. Sit to stand 04-Supervision or touching assistance E. Chair/sbm-wh-xihdb transfer 04-Supervision or touching assistance F. Toilet transfer 04-Supervision or touching assistance G. Car transfer 88-Not attempted due to medical condition or safety concerns I. Walk 10 feet 03-Partial/moderate assistance E. Chair/whj-xx-zzbaf transfer 03-Partial/moderate assistance K. Walk 150 feet 88-Not attempted due to medical condition or safety concerns L. Walking 10 feet on uneven surfaces 88-Not attempted due to medical condition or safety concerns M. 1 step (curb) 88-Not attempted due to medical condition or safety concerns N. 4 steps 88-Not attempted due to medical condition or safety concerns O. 12 steps 88-Not attempted due to medical condition or safety concerns P. Picking up object 88-Not attempted due to medical condition or safety concerns R. Wheel 50 feet with two turns S. Wheel 150 feet - Bladder and Bowel Bladder continence 4-Always incontinent Bowel continence 9-Not rated - Endurance Poor - Balance Poor - Safety Awareness Poor DISCHARGE INSTRUCTIONS: - N/A Lovenox 30 mg sq daily. DISCHARGE PLAN, FOLLOW UP CARE PROVISIONS: - Estimated Length of Stay (days) 13. - Consensus on plan Discharge plan has been discussed with primary caregiver. Patient/Family is in agreement with the konstantin n. Primary caregiver is in agreement with the plan. - Patient/Family Goals Return home independently. - Planned Living Setting Upon Discharge Home, to live alone. SIGNATURE PANEL: (CDT)
== END 2019-07-23 12:05 | DRG 950 ==
LOC: 5TH 07-09 18:23
PROVIDERS: ADMIT Psychiatry & Neurology Neurology with Special Qualifications in Child Neurology; ATTEND Psychiatry & Neurology Neurology with Special Qualifications in Child Neurology
DX: Z48.815 Encounter for surgical aftercare following surgery on the digestive system (principal); I10 Essential (primary) hypertension; K21.9 Gastro-esophageal reflux disease without esophagitis; Z90.49 Acquired absence of other specified parts of digestive tract
CPT/HCPCS: 36415; 80048; 81001; 81003; 81015; 82040; 82947; 83735; 84134; 85025; 87077; 87086; 87088; 87186; 92507; 92523; 92526; 97110; 97116; 97127; 97161; 97530; J1650; J7030

== ENCOUNTER 2020-08-25 06:37 | Day surgery (SDC) | payer OTHER ==
[2020-08-25] MEDS ORDERED: TROPICAMIDE 1% OPTH 3 ML BOT ONE (07:12)
[2020-08-25] MEDS ORDERED: KETOROLAC OPTHALMIC 5 ML BOT ONE (07:13)
[2020-08-25] MEDS ORDERED: Ringers Lactate 1,000 ML IV ONE (07:13)
[2020-08-25] MEDS ORDERED: CYCLOPENTOLATE 2% OPTH 2 ML ONE (07:13)
[2020-08-25] MEDS ORDERED: PHENYLEPHRINE 2.5% OPTH 2 ML ONE (07:13)
[2020-08-25] MEDS ORDERED: MOXIFLOXACIN HCL 0.5% 3ML OPTH OPTH ONE (07:13)
[2020-08-25 07:18] VITALS: O2SAT 98
[2020-08-25] MEDS ORDERED: BSS OPTHALMIC SOL 15 ML BOT OPTH ONE (07:21)
[2020-08-25] MEDS ORDERED: TOBRADEX 0.3-0.1% OPTH OINTMENT ONE (07:21)
[2020-08-25] MEDS ORDERED: BALANCED SALT IRRIG PLAIN 500 ML BTL IRR ONE (07:21)
[2020-08-25] MEDS ORDERED: EPINEPHRINE/PF 1 MG/ML AMP ONE (07:21)
[2020-08-25] MEDS ORDERED: POVIDONE-IODINE 5% EYE DROPS ONE (07:23)
[2020-08-25] MEDS ORDERED: HYALURONATE SODIUM 14 MG/ML SYR OPTH ONE (07:23)
[2020-08-25] MEDS ORDERED: MIDAZOLAM HCL 2 MG/2 ML INJ ONE (07:34)
[2020-08-25] MEDS ORDERED: propofoL 200 MG/20 ML VIAL IV ONE (07:34)
[2020-08-25] MEDS ORDERED: LIDOCAINE 2% MPF 5 ML VIAL ONE (07:35)
[2020-08-25] MEDS ORDERED: FENTANYL CITR 100 MCG/2 ML ONE ×2 (07:35→09:21)
[2020-08-25] MEDS ORDERED: LIDOCAINE HCL/PF 3.5% OPTH GEL OPTH ONE (07:40)
[2020-08-25] MEDS ORDERED: ONDANSETRON 4 MG/2 ML VIAL ONE (07:40)
[2020-08-25] MEDS ORDERED: LIDOCAINE HCL/PF 3.5% OPTH GEL ONE (08:04)
[2020-08-25] MEDS ORDERED: LIDOCAINE 1% MPF 2 ML AMPULE ONE (08:21)
[2020-08-25] MEDS ORDERED: BUPIVACAINE 0.25% PF 10 ML VIAL ONE (08:23)
[2020-08-25] MEDS ORDERED: LIDOCAINE 2% INJ, MPF 2 ML 0 ML ONE (08:23)
[2020-08-25] MEDS: TETRACAINE HCL 0.5% 4ML OPTH ONE ×2 (08:40→08:44)
[2020-08-25] MEDS: DUOVISC 1 KIT OPTH ONE ×2 (08:43→09:03)
[2020-08-25] MEDS ORDERED: TRYPAN BLUE 0.5 ML SYR OPTH ONE (09:04)
[2020-08-25] MEDS ORDERED: GLYCOPYRROLATE 0.2 MG/ML SYR ONE (09:22)
[2020-08-25] MEDS ORDERED: ROCURONIUM 50 MG/5 ML VIAL IV ONE (09:23)
[2020-08-25] MEDS ORDERED: NEOSTIGMINE 1 MG/ML -5 ML ONE (09:24)
[2020-08-25] MEDS ORDERED: MANNITOL 20% 500 ML BAG IV ONE (09:32)
[2020-08-25] MEDS ORDERED: ACETAMINOPHEN 325 MG TABLET ONE (11:02)
[2020-08-25 11:49] VITALS: BP 125/56; TEMP 97.6
--- NOTE | 2020-08-25 20:32 | OP ---
Date of Procedure: 08/25/2020 Surgeon: Jose De Jesus Pak MD [place] Worker: None. Preoperative Diagnosis: Visually significant cataract, right eye. Postoperative Diagnosis: Visually significant cataract, right eye. Procedure Performed: Cataract extraction, right eye with placement of intraocular lens complex using intraocular hooks secondary to poor dilation. Description Of Procedure: After being properly identified in the preoperative holding area, the joanna ent was taken back to the operating room where a time-out was performed. The patient was then preppe d and draped in the normal sterile fashion. Examination of the eye underneath the operating microsco pe revealed a poorly dilated pupil requiring the use of iris retraction hooks in order to enlarge the pupil for adequate visualization. The globe was grasped with a pair of 0.12 forceps. Paracentesis wound was made at the 12 o'clock and 6 o'clock position followed by 4 additional incisions using a 1 mm blade for placement of iris hooks. The anterior chamber was instilled with preservative-free lido laura followed by Viscoat and then 4 iris hooks were placed in the aforementioned incisions, drawing the iris into a square position revealing adequate visualization for the surgery. There was a good r ed reflex present, which was a concern preoperatively, and as such, there was no need for Trypan blue , which had been anticipated. A 2.75 mm keratome was used to make a triplanar incision temporally fo r the main phaco incision wound and an anterior capsulotomy was performed using a cystotome and compl eted with the Utrata forceps. A Buck cannula was thereafter used to hydrodissect and hydrodelineate the cataract resulting in its free rotation. The phaco handpiece was then used to remove the catara ct in a standard divide and conquer technique. The cataract was particularly dense requiring over 20 seconds of CDE time and additional Viscoat was added at multiple stages throughout in order to ensur e that the endothelium was adequately coated. Once all 4 quadrants had been removed, the phaco handp iece was exchanged for bimanual irrigation and aspiration handpieces and all cortical material was re moved. While waiting for the lens, an SN60WF model power 24.0 diopters, serial #[id number] to be lo aded, a spontaneous posterior capsule hole was noted centrally. However, this did not extend to the periphery and with careful application of viscoelastic and implantation of the lens, the lens was abl e to be implanted into the capsular bag without incident. A gentle removal of viscoelastic was then carried out using a coaxial I and A handpiece. However, not all the viscoelastic may have been remov ed as I did not want to risk further enlarging the posterior capsule hold. The iris did have a tende ncy to prolapse through the main phaco incision wound at 2 different points during the procedure, and therefore the decision to place 2 interrupted 10-0 nylon sutures through the main phaco incision. _ . There was a little iris atrophy and trauma noted at that location. Additionally, there w ere iris strands that did want to protrude through the 12 o'clock paracentesis wound and m uch attention was had in order to sweep the back and both through the use of an iris sweep as well as 30-gauge cannulas. Eventually this was able to be had and a good central location of the IOL was ma intained throughout. The anterior chamber was instilled with an air bubble in order to help with any sort of pressure spikes due to retained viscoelastic, and because of this again with the posterior c apsule hold, IV mannitol was ordered and infused into the patient during her time here. She is to fo llow up with myself, Dr. Jose De Jesus Pak at the [facility] tomorrow morning. Estimated blood loss was nil. The patient tolerated the procedure extremely well, and there were no complicati ons other than noted above. VERONICA/JHONATHANL Voice ID: [id number] Report ID: [id number]
== END 2020-08-25 11:20 | disposition home or self-care (01) ==
LOC: OR 06:37
PROVIDERS: ATTEND Ophthalmology
PROC: 08RJ3JZ Replacement of Right Lens with Synthetic Substitute, Percutaneous Approach (ICD-10-PCS; principal; 2020-08-25 07:30)
DX: H26.8 Other specified cataract (principal); H53.9 Unspecified visual disturbance; Z20.822 Contact with and (suspected) exposure to COVID-19
CPT/HCPCS: 66984; U0003; J0171; J3010; J7120; J2250; J2405; J2704; J2710

== ENCOUNTER 2020-09-22 06:39 | Day surgery (SDC) | payer OTHER ==
[2020-09-22] MEDS ORDERED: KETOROLAC OPTHALMIC 5 ML BOT OPTH ONE (07:00)
[2020-09-22] MEDS ORDERED: MOXIFLOXACIN HCL 0.5% 3ML OPTH OPTH ONE ×2 (07:00→07:17)
[2020-09-22] MEDS ORDERED: TROPICAMIDE 1% OPTH 3 ML BOT OPTH ONE (07:00)
[2020-09-22] MEDS ORDERED: PHENYLEPHRINE 2.5% OPTH 2 ML OPTH ONE (07:00)
[2020-09-22] MEDS ORDERED: CYCLOPENTOLATE 2% OPTH 2 ML OPTH ONE (07:00)
[2020-09-22] MEDS ORDERED: Ringers Lactate 1,000 ML IV ONE (07:13)
[2020-09-22] MEDS ORDERED: TROPICAMIDE 1% OPTH 3 ML BOT ONE (07:16)
[2020-09-22] MEDS ORDERED: KETOROLAC OPTHALMIC 5 ML BOT ONE (07:17)
[2020-09-22] MEDS ORDERED: CYCLOPENTOLATE 2% OPTH 2 ML ONE (07:17)
[2020-09-22] MEDS ORDERED: PHENYLEPHRINE 2.5% OPTH 2 ML ONE (07:18)
[2020-09-22] MEDS ORDERED: BSS OPTHALMIC SOL 15 ML BOT OPTH ONE (07:28)
[2020-09-22] MEDS ORDERED: POVIDONE-IODINE 5% EYE DROPS ONE (07:29)
[2020-09-22] MEDS ORDERED: EPINEPHRINE/PF 1 MG/ML AMP ONE (07:29)
[2020-09-22] MEDS ORDERED: BALANCED SALT IRRIG PLAIN 500 ML BTL IRR ONE (07:29)
[2020-09-22] MEDS ORDERED: TOBRADEX 0.3-0.1% OPTH OINTMENT ONE (07:29)
[2020-09-22] MEDS ORDERED: DUOVISC 1 KIT OPTH ONE ×3 (07:30→09:29)
[2020-09-22] MEDS ORDERED: LIDOCAINE 2% MPF 5 ML VIAL ONE (07:40)
[2020-09-22] MEDS ORDERED: propofoL 200 MG/20 ML VIAL IV ONE (07:40)
[2020-09-22] MEDS ORDERED: ONDANSETRON 4 MG/2 ML VIAL ONE (07:40)
[2020-09-22] MEDS ORDERED: FENTANYL CITR 100 MCG/2 ML ONE (07:40)
[2020-09-22] MEDS ORDERED: MIDAZOLAM HCL 2 MG/2 ML INJ ONE (08:05)
[2020-09-22] MEDS ORDERED: LIDOCAINE 1% MPF 5 ML VIAL ONE (08:12)
[2020-09-22] MEDS ORDERED: TRYPAN BLUE 0.5 ML SYR OPTH ONE (08:24)
[2020-09-22] MEDS ORDERED: TETRACAINE HCL 0.5% 4ML OPTH ONE (08:26)
[2020-09-22] MEDS ORDERED: LIDOCAINE HCL/PF 3.5% OPTH GEL ONE (08:30)
[2020-09-22] MEDS ORDERED: dexAMETHasone 10 MG/ML VIAL ONE (09:50)
[2020-09-22] MEDS ORDERED: NA CHLORIDE 0.9% 50 ML ONE (09:51)
[2020-09-22 10:33] VITALS: TEMP 97.4; O2SAT 97
[2020-09-22 10:58] VITALS: BP 124/57
--- NOTE | 2020-09-26 07:49 | OP ---
Date of Procedure: 09/22/2020 Surgeon: Jose De Jesus Pak MD Instrument Technician Apprentice: None. Preoperative Diagnosis: Visually significant cataract, left eye. Postoperative Diagnosis: Visually significant cataract, left eye. Procedure Performed: Complex cataract extraction using Trypan blue and iris hooks to the poor dilati on and poor red reflex, limited anterior vitrectomy, implantation of intra-ocular lens with subsequen t explantation and placement of anterior chamber lens. Description Of Procedure: After being properly identified in the preoperative holding area, the joanna ent was taken back to the operating room where a time-out was performed. The patient was then preppe d and draped in the usual sterile fashion. Examination of the eye underneath the operating microscop e revealed a poorly dilated pupil and no red reflex with a cross between an almost solid white catara ct with extreme . The decision to place iris hooks and use trypan blue was made and the gl obe was grasped with a pair of 0.12 forceps and initial entry incision was made. The patient; siobhan lanier, was extremely sensitive to this and therefore additional anesthesia was provided. Lidocaine gel a s well as tetracaine drops were applied over a course of over 30 minutes in order to fully anesthetiz e the eye and then once this had been accomplished, we proceeded with the cataract surgery. In addit ion to the paracentesis wound, made at 6 o'clock, 4 additional incisions were made using a 1 mm blade in order to place the iris hooks and the anterior chamber was instilled with preservative-free lidoc myriam. Trypan blue was used to stain the anterior capsule and irrigated out with BSS and the anterior chamber filled with additional Viscoat, a capsulotomy was initiated using a cystotome and then conner ed over to an Ultrata forceps. After the capsulotomy had gone around 270 degrees, it did start to ru n out in the inferior direction. Additional viscoelastic was added with an attempt to rescue it. Ho wever, it continued to follow up further and therefore, we returned to the cystotome and severed the capsulotomy using a can project manager entertainment and media technique over the small amount that required connection. The anterio r capsule split did go out beyond my view of the iris, but I was unable to see if it went around furt her due to the density of the lens. The cataract was removed in a standard divide and conquer techni que with careful attention had in order to not press any additional pressure on the capsule and reduc e any manipulation and due to the density of the cataract, significant CDE time was used with frequen t re-application of Viscoat in order to protect the corneal endothelium. After 2 quarters of the cat aract was removed, it became apparent that there was a posterior capsule split as well and careful at tention was had to maneuver the pieces into place and phaco was continued until it was not safe to do so. Additional viscoelastic was added and the phaco handpiece, exchanged for a 20-gauge vitrector. The trocar system was not available and therefore, the vitrectomy was carried out slowly through the anterior chamber with an additional paracentesis wound made at 12 o'clock. The vitrectomy was perfo rmed and the residual cortex removed, but of course, this was not much as most of the lens was nuclea r in nature. Another quarter of the lens nucleus was able to be removed in this fashion. However, a nother portion of the cataract, which is estimated to be approximately 1/4 was lost into the posterio r chamber. Once the anterior vitrectomy was completed, examination of the anterior capsule did revea l anterior capsule split extending to the posterior capsulotomy, but I did feel that there was potent ially adequate support for a 3-piece IOL in the sulcus and therefore, a MA 60 AC power 23.5 diopters, serial #[id number] was placed into the sulcus and dialed into position. One of the haptics had a s mall crimp in it which made keeping it in the sulcus difficult and it kept wanting to migrate posteri or to it and ultimately I felt that there was not adequate support and that lens was explanted. It w as exchanged for an anterior chamber lens model MCA4 UO power 22.5 diopter serial #[id number] after having extended the main phaco excision to 6 mm with the MA 60 delivered through that. A Sheets glid e was placed over the iris and the anterior chamber was delivered over the sheath glide and then ena ed into the angle. The Sheets glide was thereafter removed and the phaco incision sutured with a tot al of 5 interrupted 10-0 nylon sutures. The iris, which had required iris hooks, did have a tendency to prolapse through the main phaco incision as well as even the inferior paracentesis on multiple oc casions, which has resulted in some iris transillumination and trauma and therefore, an additional __ was not placed. At the conclusion of the procedure, the wounds were hydrated and found to be watertight with no vitreous present or visible in the anterior chamber and a well-centered ACIOL opt ic over the visual axis. The cornea remained remarkably clear throughout the entire procedure. The patient and her son were informed of the nature of the complication and she will follow up with me [facility] tomorrow morning. I will have her follow up with my retina specialist . ___ on Saturday, the vitrectomy for . VERONICA/MARCIANO Voice ID: [id number] Report ID: [id number]
== END 2020-09-22 10:56 | disposition home or self-care (01) ==
LOC: OR 06:39
PROVIDERS: ATTEND Ophthalmology
PROC: 08B53ZZ Excision of Left Vitreous, Percutaneous Approach (ICD-10-PCS; 2020-09-22)
PROC: 08RK3JZ Replacement of Left Lens with Synthetic Substitute, Percutaneous Approach (ICD-10-PCS; 2020-09-22)
PROC: 085K3ZZ Destruction of Left Lens, Percutaneous Approach (ICD-10-PCS; principal; 2020-09-22 07:30)
DX: H26.9 Unspecified cataract (principal); H54.7 Unspecified visual loss
CPT/HCPCS: 66984; 67036; J0171; J2250; J3010; J1100; J7120; J2405; J2704

== ENCOUNTER 2021-06-30 02:14 | Emergency (ER) | payer OTHER ==
--- OUTSIDE RECORDS SUMMARY | 2021-06-30 02:26 | XMS REPORT | Continuity of Care Document ---
:1935 Author Organization [facility] Address [address] [place] [address] Care Team Providers Name Role Phone Alton RESTREPO Attending Clinician Heike Alicia MD Attending Clinician ALTON Attending Clinician Unavailable PRAVEEN MILES Attending Clinician Unavailable ABDULLAHI ELI Attending Clinician Unavailable ALTON Admitting Clinician Unavailable Payers Payer Name Policy Type Policy Number Effective Date Expiration Date [facility] [id number] 2020 (MEDICARE 00:00:00 REPLACEMENT HMO) Problems This patient has no known problems. Allergies, Adverse Reactions, Alerts Allergy Allergy Status Severity Reaction(s) Onset Inactive Treating Comm ents Source Name Type Date Date Clinician NO KNOWN Allergy Active [facility] Social History Social Habit Start Date Stop Date Quantity Comments Source History [facility] Alcohol Std Drinks of Med icine History [facility] Alcohol Binge of Medicine Alcohol intake 2019-07-01 2019-07-01 Lifetime [facility]ge 00:00:00 00:00:00 non-drinker of Medicine (finding) Tobacco use and 2019-03-18 2019-03-18 Never used [facility] exposure 00:00:00 00:00:00 of Medicine History [facility] 2019-03-18 2019-03-18 1 [facility] Alcohol Frequency 00:00:00 00:00:00 of Medi cine Sex [birth year] [facility] [employer] [facility] 00:00:00 00:00:00 of Medicine Smoking Status Start Date Stop Date Source Never smoker [facility] o f Medicine Medications Ordered Filled Start Stop Current Ordering Indication Dosage Frequency Signature Comments Components Source Medication Medication Date Date Medication? Clinician (SIG) Name Name losartan Yes 50mg Take 50 mg [place] (COZAAR) 50 7-06 by mouth [facility] MG tablet 15:05: daily. of 23 Medicin e pantoprazol Yes 40mg Take 40 mg [facility] e 7-06 by mouth [place] (PROTONIX) 15:05: daily. of 40 MG 23 Medicin tablet e celecoxib Yes 100mg Take 100 [place] (CELEBREX) 7-06 mg by [place] 100 MG 15:05: mouth two of capsule 23 times Medicin daily. e Ferrous Yes Take by [facility] Gluconate 7-06 mouth. [place] 239 (27 Fe) 15:05: of MG TABS 23 Medicin e calcium-vit Yes 1{tbl} Take 1 [facility] amaro D 7-06 Tablet by [place] (OSCAL 15:05: mouth of 500/200 23 daily. Medicin D-3) e 500-200 MG-UNIT per tablet TRAZODONE Yes Take by [facility] OR 7-06 mouth. [place] 15:05: of 23 Medicin e Cholecalcif Yes Take by Jose E muhammad chris 7-06 mouth. [place] (VITAMIN D) 15:05: of 10 MCG/ML 23 Medicin LIQD e amlodipine Yes [facility] (NORVASC) 7-06 [place] 10 MG 00:00: of tablet 00 Medicin e conjugated 2020-0 Yes Apply pea [facility] estrogens 4-17 size to [place] (PREMARIN) 00:00: vagina 3 x o f vaginal 00 a week Medicin cream e Cranberry 2020-0 Yes Take one [facility] (ELLURA) 4-08 po daily [place] 200 MG CAPS 00:00: of 00 Medicin e Probiotic 2020-0 Yes Take 1 po [facility] Product 4-08 qday, [place] (FLORAJEN3) 00:00: needs of CAPS 00 refrigerat Medicin ion. e losartan 2019-0 Yes 50mg Take 50 mg [place] (COZAAR) 50 2-11 by mouth [facility] MG tablet 15:59: daily. of 28 Medicin e amlodipine- 2019-0 Yes 1{tbl} Take 1 Tab [facility] atorvastata 2-11 by mouth [facility] tin 15:59: daily. of (CADUET) 28 Medicin 2.5-10 MG e per tablet pantoprazol 2020-0 Yes 40mg Take 40 mg [facility] e 2-11 by mouth College (PROTONIX) 15:59: daily. of 40 MG 28 Medicin tablet e metronidazo 2020-0 Yes 500mg Take 500 [facility] (FLAGYL) 2-11 mg by [place] 500 MG 15:59: mouth 3 of tablet 28 times Medicin daily. e losartan 2020-0 Yes 50mg Take 50 mg [place] (COZAAR) 50 2-11 by mouth [facility] MG tablet 15:59: daily. of 28 Medicin e amlodipine- 2020-0 Yes 1{tbl} Take 1 Tab Ganes[facility] atorvastata 2-11 by mouth [facility] tin 15:59: daily. of (CADUET) 28 Medicin 2.5-10 MG e per tablet pantoprazol 2020-0 Yes 40mg Take 40 mg [facility] e 2-11 by mouth College (PROTONIX) 15:59: daily. of 40 MG 28 Medicin tablet e metronidazo 2020-0 Yes 500mg Take 500 [facility] (FLAGYL) 2-11 mg by [place] 500 MG 15:59: mouth 3 of tablet 28 times Medicin daily. e losartan 2020-0 Yes 50mg Take 50 mg [place] (COZAAR) 50 2-11 by mouth [facility] MG tablet 15:59: daily. of 28 Medicin e amlodipine- 2020-0 Yes 1{tbl} Take 1 Tab Ganesh atorvastata 2-11 by mouth [place] tin 15:59: daily. of (CADUET) 28 Medicin 2.5-10 MG e per tablet pantoprazol 2020-0 Yes 40mg Take 40 mg [facility] e 2-11 by mouth [employer] (PROTONIX) 15:59: daily. of 40 MG 28 Medicin tablet e metronidazo 2020-0 Yes 500mg Take 500 [facility] (FLAGYL) 2-11 mg by [place] 500 MG 15:59: mouth 3 of tablet 28 times Medicin daily. e losartan 2020-0 Yes 50mg Take 50 mg [place] (COZAAR) 50 2-11 by mouth [facility] MG tablet 15:59: daily. of 28 Medicin e amlodipine- 2020-0 Yes 1{tbl} Take 1 Tab [facility] atorvastata 2-11 by mouth [facility] tin 15:59: daily. of (CADUET) 28 Medicin 2.5-10 MG e per tablet pantoprazol 2020-0 Yes 40mg Take 40 mg [facility] e 2-11 by mouth College (PROTONIX) 15:59: daily. of 40 MG 28 Medicin tablet e metronidazo 2020-0 Yes 500mg Take 500 [facility] (FLAGYL) 2-11 mg by [place] 500 MG 15:59: mouth 3 of tablet 28 times Medicin daily. e Acetaminoph 2020-0 Yes Take by [facility] (TYLENOL 2-11 mouth. Colleg e 8 HOUR OR) 15:58: of 28 Medicin e Acetaminoph 2020-0 Yes Take by [facility] (TYLENOL 2-11 mouth. Colleg e 8 HOUR OR) 15:58: of 28 Medicin e Acetaminoph 2020-0 Yes Take by [facility] en (TYLENOL 2-11 mouth. Colleg e 8 HOUR OR) 15:58: of 28 Medicin e Acetaminoph 2020-0 Yes Take by [facility] en (TYLENOL 2-11 mouth. Colleg e 8 HOUR OR) 15:58: of 28 Medicin e amlodipine- 2020-0 Yes 1{tbl} Take 1 Tab [facility] atorvastata 2-11 by mouth [facility] tin 09:59: daily. of (CADUET) 28 Medicin 2.5-10 MG e per tablet metronidazo 2020-0 Yes 500mg Take 500 [facility] (FLAGYL) 2-11 mg by [place] 500 MG 09:59: mouth 3 of tablet 28 times Medicin daily. e Acetaminoph 2020-0 Yes Take by [facility] (TYLENOL 2-11 mouth. Colleg e 8 HOUR OR) 09:58: of 28 Medicin e Na 2020-0 Yes [id number] Take as [facility] Sulfate-K 2-11 directed Colleg e Sulfate-Mg 00:00: of Sulf 00 Medicin (SUPREP e BOWEL PREP KIT) 17.5-3.13-1 .6 GM/177ML SOLN neomycin 2020-0 Yes [id number] Take 2 [facility] (MYCIFRADIN 2-11 tablets by Co llege ) 500 MG 00:00: mouth at of tablet 00 1:00PM, Medicin 4:00 PM, e and 7:00 PM the day prior to your surgery metronidazo 20200 Yes [id number] Take 1 [facility] le (FLAGYL) 2-11 tablet by Col lege 500 MG 00:00: mouth at of tablet 00 1:00 PM, Medicin 4:00 PM, e and 7:00 PM the day prior to your surgery Na 2019-0 Yes [id number] Take as [facility] Sulfate-K 2-11 directed [facility] e Sulfate-Mg 00:00: of Sulf 00 Medicin (SUPREP e BOWEL PREP KIT) 17.5-3.13-1 .6 GM/177ML SOLN neomycin 2020-0 Yes [id number] Take 2 [facility] (MYCIFRADIN 2-11 tablets by Co llege ) 500 MG 00:00: mouth at of tablet 00 1:00PM, Medicin 4:00 PM, e and 7:00 PM the day prior to your surgery metronidazo 20200 Yes [id number] Take 1 Ganesh le (FLAGYL) 2-11 tablet by Col [facility]ge 500 MG 00:00: mouth at of tablet 00 1:00 PM, Medicin 4:00 PM, e and 7:00 PM the day prior to your surgery Na 2019-0 Yes [id number] Take as [facility] Sulfate-K 2-11 directed [facility] e Sulfate-Mg 00:00: of Sulf 00 Medicin (SUPREP e BOWEL PREP KIT) 17.5-3.13-1 .6 GM/177ML SOLN neomycin 2020-0 Yes [id number] Take 2 [facility] (MYCIFRADIN 2-11 tablets by Co llege ) 500 MG 00:00: mouth at of tablet 00 1:00PM, Medicin 4:00 PM, e and 7:00 PM the day prior to your surgery metronidazo 2020-0 Yes [id number] Take 1 Ganesh le (FLAGYL) 2-11 tablet by Col [facility]ge 500 MG 00:00: mouth at of tablet 00 1:00 PM, Medicin 4:00 PM, e and 7:00 PM the day prior to your surgery Na 2020-0 Yes [id number] Take as [facility] Sulfate-K 2-11 directed [facility] e Sulfate-Mg 00:00: of Sulf 00 Medicin (SUPREP e BOWEL PREP KIT) 17.5-3.13-1 .6 GM/177ML SOLN neomycin 2020-0 Yes [id number] Take 2 [facility] (MYCIFRADIN 2-11 tablets by [employer] ) 500 MG 00:00: mouth at of tablet 00 1:00PM, Medicin 4:00 PM, e and 7:00 PM the day prior to your surgery metronidazo 2020-0 Yes [id number] Take 1 [facility]anesh le (FLAGYL) 2-11 tablet by Col [facility]ge 500 MG 00:00: mouth at of tablet 00 1:00 PM, Medicin 4:00 PM, e and 7:00 PM the day prior to your surgery Na 2020-0 Yes [id number] Take as [facility] Sulfate-K 2-11 directed [facility] e Sulfate-Mg 00:00: of Sulf 00 Medicin (SUPREP e BOWEL PREP KIT) 17.5-3.13-1 .6 GM/177ML SOLN neomycin 2020-0 Yes [id number] Take 2 [facility] (MYCIFRADIN 2-11 tablets by [employer] ) 500 MG 00:00: mouth at of tablet 00 1:00PM, Medicin 4:00 PM, e and 7:00 PM the day prior to your surgery metronidazo 2020-0 Yes [id number] Take 1 Ganesh le (FLAGYL) 2-11 tablet by Col [facility]ge 500 MG 00:00: mouth at of tablet 00 1:00 PM, Medicin 4:00 PM, e and 7:00 PM the day prior to your surgery ciprofloxac 2020-0 Yes TAKE 1 [facility] in (CIPRO) 1-03 TABLET BY [facility] 500 MG 00:00: MOUTH of tablet 00 TWICE Medicin DAILY FOR e 10 DAYS ciprofloxac 2020-0 Yes TAKE 1 [facility] in (CIPRO) 1-03 TABLET BY [facility] 500 MG 00:00: MOUTH of tablet 00 TWICE Medicin DAILY FOR e 10 DAYS ciprofloxac 2020-0 Yes TAKE 1 [facility] in (CIPRO) 1-03 TABLET BY [facility] 500 MG 00:00: MOUTH of tablet 00 TWICE Medicin DAILY FOR e 10 DAYS ciprofloxac Yes TAKE 1 [facility] in (CIPRO) 1-03 TABLET BY [facility] 500 MG 00:00: MOUTH of tablet 00 TWICE Medicin DAILY FOR e 10 DAYS ciprofloxac Yes TAKE 1 [facility] in (CIPRO) 1-03 TABLET BY [facility] 500 MG 00:00: MOUTH of tablet 00 TWICE Medicin DAILY FOR e 10 DAYS losartan 2018-04- No 50mg Take 50 mg [facility] (COZAAR) 50 -05-12 by mouth. Co llege MG tablet 00:00: 00:00 of 00 :00 Medicin e Na 2018-04 Yes [SUPREP] [facility] Sulfate-K 2-18 Take as College Sulfate-Mg 00:00: directed. of Sulf 00 Medicin (SUPREP e BOWEL PREP KIT) 17.5-3.13-1 .6 GM/177ML SOLN Na 2018-04 Yes [SUPREP] [facility]anes[facility] Sulfate-K 2-18 Take as College Sulfate-Mg 00:00: directed. of Sulf 00 Medicin (SUPREP e BOWEL PREP KIT) 17.5-3.13-1 .6 GM/177ML SOLN Na 2018-04 Yes [SUPREP] [facility] Sulfate-K 2-18 Take as College Sulfate-Mg 00:00: directed. of Sulf 00 Medicin (SUPREP e BOWEL PREP KIT) 17.5-3.13-1 .6 GM/177ML SOLN Na 2018-04 Yes [SUPREP] Ganesh Sulfate-K 2-18 Take as College Sulfate-Mg 00:00: directed. of Sulf 00 Medicin (SUPREP e BOWEL PREP KIT) 17.5-3.13-1 .6 GM/177ML SOLN Na 2018-04 Yes [SUPREP] [facility] Sulfate-K 2-18 Take as College Sulfate-Mg 00:00: directed. of Sulf 00 Medicin (SUPREP e BOWEL PREP KIT) 17.5-3.13-1 .6 GM/177ML SOLN Immunizations Ordered Immunization Filled Immunization Date Status Commen ts Source Name Name Tariq SARS-CoV-2 2020-07-12 Completed [facility] Vaccination 00:00:00 of Medicine Tariq SARS-CoV-2 2020-06-14 Completed [facility] Vaccination 00:00:00 of Medicine Vital Signs Vital Name Observation Time Observation Value Comments Source Body height 2020-10-04 19:53:00 157.5 cm [facility] Body weight 2020-10-04 19:53:00 43.182 kg [facility] BMI 2020-10-04 19:53:00 17.41 kg/m2 [facility] Systolic blood 2019-07-07 15:44:00 126 mm[Hg] [facility] Diastolic blood 2019-07-07 15:44:00 72 mm[Hg] [facility] Medicine Heart rate 2019-07-07 15:44:00 85 /min [facility] Body temperature 2019-07-07 15:44:00 36.11 [facility] Systolic blood 2019-07-07 15:44:00 126 mm[Hg] [facility] Diastolic blood 2019-07-07 15:44:00 72 mm[Hg] [facility] Medicine Heart rate 2019-07-07 15:44:00 85 /min [facility] Body temperature 2019-07-07 15:44:00 36.11 [facility] Systolic blood 2019-07-01 19:26:00 116 mm[Hg] [facility] Diastolic blood 2019-07-01 19:26:00 63 mm[Hg] [facility] Medicine Heart rate 2019-07-01 19:26:00 74 /min [facility] Respiratory rate 2019-07-01 19:26:00 16 /min [facility] Systolic blood 2019-07-01 19:26:00 116 mm[Hg] [facility] Medicine Diastolic blood 2019-07-01 19:26:00 63 mm[Hg] [facility] Medicine Heart rate 2019-07-01 19:26:00 74 /min [facility] Respiratory rate 2019-07-01 19:26:00 16 /min [facility] Systolic blood 2019-05-12 15:57:00 137 mm[Hg] [facility] Medicine Diastolic blood 2019-05-12 15:57:00 84 mm[Hg] [facility] Medicine Heart rate 2019-05-12 15:57:00 89 /min [facility] temperature 2019-05-12 15:57:00 36.78 [facility] Respiratory rate 2019-05-12 15:57:00 16 /min [facility] Body height 2019-05-12 15:57:00 157.5 cm [facility] Body weight 2019-05-12 15:57:00 47.809 kg [facility] BMI 2019-05-12 15:57:00 19.28 [facility] Systolic blood 2019-05-12 15:57:00 137 mm[Hg] [facility] Medicine Diastolic blood 2019-05-12 15:57:00 84 mm[Hg] [facility] Medicine Heart rate 2019-05-12 15:57:00 89 /min [facility] Body temperature 2019-05-12 15:57:00 36.78 [facility] Respiratory rate 2019-05-12 15:57:00 16 /min [facility] Body height 2019-05-12 15:57:00 157.5 cm [facility] Body weight 2019-05-12 15:57:00 47.809 kg [facility] BMI 2019-05-12 15:57:00 19.28 kg/m2 [facility] Procedures This patient has no known procedures. Plan of Care Planned Activity Planned Date Details Comments Source Future Scheduled 2020-10-12 TETANUS SHOT (ADULT) [facility] Test 11:36:31 [code = TETANUS SHOT of Medi cine (ADULT)] Future Scheduled 2020-10-12 BMI FOLLOW UP PLAN [facility] Test 11:36:31 [code = BMI FOLLOW of Medici ne UP PLAN] Future Scheduled 2020-10-12 ZOSTER VACCINE (1 of [facility] Test 11:36:31 2) [code = ZOSTER of Medicin e VACCINE (1 of 2)] Future Scheduled 2020-10-12 MEDICARE AWV [facility] Test 11:36:31 (Initial) [code = of Medicin e MEDICARE AWV (Initial)] Future Scheduled 2020-10-12 FALL SCREEN [code = [facility] [employer] Test 11:36:31 FALL SCREEN] of Medicine Future Scheduled 2020-10-12 Screening for Ganesh [facility] Test 11:36:31 osteoporosis of Medicine (procedure) [code = 139451833] Future Scheduled 2020-10-12 PNEUMOVAX >=65 [facility] Test 11:36:31 (PPSV23) [code = of Medicine PNEUMOVAX >=65 (PPSV23)] Future Scheduled 2020-10-12 FLU VACCINE > 6 [facility] C [facility] Test 11:36:31 MONTHS [code = FLU of Medici ne VACCINE > 6 MONTHS] Future Scheduled MEDICARE AWV [facility] Test (Initial) [code = of Medicin e MEDICARE AWV (Initial)] Future Scheduled FALL SCREEN [code = [facility] [employer] Test FALL SCREEN] of Medicine Future Scheduled OSTEOPOROSIS [facility] Test SCREENING [code = of Medicin e OSTEOPOROSIS SCREENING] Future Scheduled PNEUMOVAX >=65 [facility] [employer] Test (PPSV23) [code = of Medicine PNEUMOVAX >=65 (PPSV23)] Future Scheduled PREVNAR >= 65 [facility] Col [facility]ge Test (PCV13) [code = of Medicine PREVNAR >= 65 (PCV13)] Future Scheduled FLU VACCINE > 6 [facility] C [facility]lege Test MONTHS [code = FLU of Medici ne VACCINE > 6 MONTHS] Future Scheduled TETANUS SHOT (ADULT) [place] [facility] [employer] Test [code = TETANUS SHOT of Medi cine (ADULT)] Future Scheduled MEDICARE AWV [facility] Test (Initial) [code = of Medicin e MEDICARE AWV (Initial)] Future Scheduled FALL SCREEN [code = [facility] Test FALL SCREEN] of Medicine Future Scheduled OSTEOPOROSIS [facility] Test SCREENING [code = of Medicin e OSTEOPOROSIS SCREENING] Future Scheduled PNEUMOVAX >=65 [facility] Test (PPSV23) [code = of Medicine PNEUMOVAX >=65 (PPSV23)] Future Scheduled PREVNAR >= 65 [facility] Test (PCV13) [code = of Medicine PREVNAR >= 65 (PCV13)] Future Scheduled FLU VACCINE > 6 [facility] C [facility]lege Test MONTHS [code = FLU of Medici ne VACCINE > 6 MONTHS] Future Scheduled TETANUS SHOT (ADULT) [place] [facility] [employer] Test [code = TETANUS SHOT of Medi cine (ADULT)] Future Scheduled MEDICARE AWV [facility] Test (Initial) [code = of Medicin e MEDICARE AWV (Initial)] Future Scheduled FALL SCREEN [code = [facility] Test FALL SCREEN] of Medicine Future Scheduled OSTEOPOROSIS [facility] Test SCREENING [code = of Medicin e OSTEOPOROSIS SCREENING] Future Scheduled PNEUMOVAX >=65 [facility] [employer] [facility] Test (PPSV23) [code = of Medicine PNEUMOVAX >=65 (PPSV23)] Future Scheduled PREVNAR >= 65 [facility] Col [facility] Test (PCV13) [code = of Medicine PREVNAR >= 65 (PCV13)] Future Scheduled FLU VACCINE > 6 [facility] C [facility]lege Test MONTHS [code = FLU of Medici ne VACCINE > 6 MONTHS] Future Scheduled TETANUS SHOT (ADULT) [place] [facility] [employer] Test [code = TETANUS SHOT of Medi cine (ADULT)] Future Scheduled MEDICARE AWV [facility] Test (Initial) [code = of Medicin e MEDICARE AWV (Initial)] Future Scheduled FALL SCREEN [code = [employer] Test FALL SCREEN] of Medicine Future Scheduled OSTEOPOROSIS [facility] Test SCREENING [code = of Medicin e OSTEOPOROSIS SCREENING] Future Scheduled PNEUMOVAX >=65 [facility] Test (PPSV23) [code = of Medicine PNEUMOVAX >=65 (PPSV23)] Future Scheduled PREVNAR >= 65 [facility] Test (PCV13) [code = of Medicine PREVNAR >= 65 (PCV13)] Future Scheduled FLU VACCINE > 6 [facility] C [facility]lege Test MONTHS [code = FLU of Medici ne VACCINE > 6 MONTHS] Future Scheduled TETANUS SHOT (ADULT) [place] [facility] [employer] Test [code = TETANUS SHOT of Medi cine (ADULT)] Future Scheduled CT CHEST WO CONTRAST 1 Occurrences [facility] Test [code = 94634-4] starting of Medicine 05/12/2019 until 12/11/2019 Encounters Start End Encounter Admission Attending Care Care Encounter Source Date/Time Date/Time Type Type Clinicians Facility Department ID 2019-05-25 Inpatient SLE SLE [id number] SLE 05:54:00 [id number] 2020-12-07 2020-12-07 Outpatient DMG DMG [id number] [facility] 11:00:00 11:00:00 [id number] Medica l Group 2020-10-04 2020-10-04 [facility] [id number] [facility] 14:26:12 15:27:48 Visit José Miguel [id number] Co llege 0.2.7.2.686 of [id number] [facility] 510 e 2019-07-20 2019-07-20 Outpatient SLEH SLEH [id number] [facility]H 00:00:00 00:00:00 [id number] 2019-07-07 2019-07-07 Office Ravin, BCArely [id number] [place] [address] 10:11:22 10:31:22 Visit Christopher AMBULATOR [id number] [place] P Y 0.2.7.2.686 of [id number] [facility] 300 e 2019-07-07 2019-07-07 Office Ravin, BCArely [id number] 10:11:22 10:31:22 Visit Christopher AMBULATOR [id number] P Y 0.2.7.2.686 [id number] 2019-07-07 2019-07-07 [facility] [id number] [facility] 09:11:55 09:26:55 Visit José Miguel [id number] Co llege 0.2.7.2.686 of [id number] [facility] 510 e 2019-07-07 2019-07-07 [facility] [id number] 09:11:55 09:26:55 Visit José Miguel [id number] 0.2.7.2.686 [id number] 2019-07-01 2019-07-01 [facility] [id number] [facility] 14:11:46 15:44:22 Visit José Miguel [id number] Co llege 0.2.7.2.686 of [id number] [facility] 510 e 2019-07-01 2019-07-01 [facility] [id number] 14:11:46 15:44:22 Visit José Miguel [id number] 0.2.7.2.686 [id number] 2019-05-12 2019-05-12 Office [facility] [id number] [facility] 09:23:12 13:02:30 Visit José Miguel [id number] Co llege 0.2.7.2.686 of [id number] [facility] 510 e 2019-05-12 2019-05-12 Office [facility], [facility] [id number] 09:23:12 13:02:30 Visit José Miguel [id number] 0.2.7.2.686 [id number] Results Test Description Test Time Test Comments Results Result Comments Source FUNGUS CULTURE + SMEAR 2019-07-13 18:20:00 Test Item Value Reference Range Interpretation Comme nts CULTURE (BEAKER) (test code = 1095) No fungus isolated in 28 days FUNGUS SMEAR (BEAKER) (test code = 1406) No fungi seen POCT-GLUCOSE [id number] 12:33:00 Test Item Value Reference Range Interpretation Comments POC-GLUCOSE METER 134 mg/dL 70-110 H : TESTED A T [facility] 6720 (BEAKER) (test code = CELINA Partida [facility], 1538) 41548: Document Coordinator/Techni sharla ID = [id number] for PRINCESS OSORIO [id number] 06:02:00 Test Item Value Reference Range Interpretation Comments PREALBUMIN (BEAKER) (test code = 23 mg/dL 1445 586) Document Coordinator ID - SHANON [id number] 05:57:00 Test Item Value Reference Range Interpretation Comments TRIGLYCERIDES (BEAKER) (test code = 37 mg/dL 540) TRIGLYCERIDE REFERENCE RANGELow Risk <150Borderline Risk 150-199High Risk 200-499Very High Risk>=500Operator ID - SHANON [id number] 05:57:00 Test Item Value Reference Range Interpretation Comments MAGNESIUM (BEAKER) (test code = 2.2 mg/dL 1.6-2.6 627) Document Coordinator ID - PICARMEN [id number] 05:57:00 Test Item Value Reference Range Interpretation Comments PHOSPHORUS (BEAKER) (test code = 2.9 mg/dL 2.3-4.7 604) Document Coordinator ID - SHANON LBASIC METABOLIC [id number] 05:57:00 Test Item Value Reference Range Interpretation Comments SODIUM (BEAKER) 138 meq/L 136-145 (test code = 381) POTASSIUM (BEAKER) 3.5 meq/L 3.5-5.1 (test code = 379) CHLORIDE (BEAKER) 102 meq/L 98-107 (test code = 382) CO2 (BEAKER) (test 29 meq/L 22-29 code = 355) BLOOD UREA NITROGEN 71 mg/dL 7-21 H (BEAKER) (test code = 354) CREATININE (BEAKER) 0.82 mg/dL 0.57-1.25 (test code = 358) GLUCOSE RANDOM 109 mg/dL 70-105 H (BEAKER) (test code = 652) CALCIUM (BEAKER) 8.9 mg/dL 8.4-10.2 (test code = 697) EGFR (BEAKER) (test 66 mL/min/1.73 ESTIMA BLANCA GFR IS code = 1092) sq m NOT ACCURATE CREATININE CLEARANCE IN PREDICTING GLOMERULAR FILTRATION RATE . ESTIMATED GFR I S NOT APPLICABLE FOR DIALYSIS PATIEN TS. Document Coordinator ID - SHANON LHEPATIC FUNCTION [id number] 05:57:00 Test Item Value Reference Range Interpretation Comments TOTAL PROTEIN (BEAKER) (test code = 4.5 gm/dL 6.0-8.3 L 770) ALBUMIN (BEAKER) (test code = 1145) 2.2 g/dL 3.5-5.0 L BILIRUBIN TOTAL (BEAKER) (test code 0.3 mg/dL 0.2-1.2 = 377) BILIRUBIN DIRECT (BEAKER) (test 0.1 mg/dL 0.1-0.5 code = 706) ALKALINE PHOSPHATASE (BEAKER) (test 103 U/L 40-150 code = 346) AST (SGOT) (BEAKER) (test code = 12 U/L 5-34 353) ALT (SGPT) (BEAKER) (test code = 13 U/L 6-55 347) Document Coordinator ID - PICARMEN LC-REACTIVE [id number] 05:57:00 Test Item Value Reference Range Interpretation Comments C-REACTIVE PROTEIN (BEAKER) (test 1.49 mg/dL 0.00-0.50 H code = 676) Document Coordinator ID - SHANON [id number] 05:47:00 Test Item Value Reference Range Interpretation Comments PROTIME (BEAKER) (test code = 14.4 seconds 11.9-14.2 H 759) INR (BEAKER) (test code = 370) 1.2 <=5.9 PARTIAL THROMBOPLASTIN TIME 29.3 seconds 22.5-36.0 (BEAKER) (test code = 760) Effective 08/27/2018: PT Reference Range ChangeNew: 11.9-14.2 Previous: 11.7- 14.7RECOMMENDED COUMADIN/WARFARIN INR THERAPY RANGESSTANDARD DOSE: 2.0-3.0 Includes: PROPHYLAXIS for venous thrombosis, systemic embolization; TREATMENT for venous thrombosis and/or pulmonary embolus.HIGH RISK: Target INR is2.5-3.5 for patients wiht mechanical heart valves.CBC W/PLT COUNT & AUTO [id number] 05:29:00 Test Item Value Reference Range Interpretation Comments WHITE BLOOD CELL COUNT (BEAKER) 9.4 K/ L 3.5-10.5 (test code = 775) RED BLOOD CELL COUNT (BEAKER) 2.83 M/ L 3.93-5.22 L (test code = 761) HEMOGLOBIN (BEAKER) (test code = 8.2 GM/DL 11.2-15.7 L 410) HEMATOCRIT (BEAKER) (test code = 26.1 % 34.1-44.9 L 411) MEAN CORPUSCULAR VOLUME (BEAKER) 92.2 fL 79.4-94.8 (test code = 753) MEAN CORPUSCULAR HEMOGLOBIN 29.0 pg 25.6-32.2 (BEAKER) (test code = 751) MEAN CORPUSCULAR HEMOGLOBIN CONC 31.4 GM/DL 32.2-35.5 L (BEAKER) (test code = 752) RED CELL DISTRIBUTION WIDTH 15.0 % 11.7-14.4 H (BEAKER) (test code = 412) PLATELET COUNT (BEAKER) (test 272 K/CU MM 150-450 code = 756) MEAN PLATELET VOLUME (BEAKER) 12.3 fL 9.4-12.3 (test code = 754) NUCLEATED RED BLOOD CELLS 0 /100 WBC 0-0 (BEAKER) (test code = 413) NEUTROPHILS RELATIVE PERCENT 72 % (BEAKER) (test code = 429) LYMPHOCYTES RELATIVE PERCENT 11 % (BEAKER) (test code = 430) MONOCYTES RELATIVE PERCENT 9 % (BEAKER) (test code = 431) EOSINOPHILS RELATIVE PERCENT 3 % (BEAKER) (test code = 432) BASOPHILS RELATIVE PERCENT 0 % (BEAKER) (test code = 437) NEUTROPHILS ABSOLUTE COUNT 6.78 K/ L 1.56-6.13 H (BEAKER) (test code = 670) LYMPHOCYTES ABSOLUTE COUNT 1.06 K/ L 1.18-3.74 L (BEAKER) (test code = 414) MONOCYTES ABSOLUTE COUNT (BEAKER) 0.85 K/ L 0.24-0.36 H (test code = 415) EOSINOPHILS ABSOLUTE COUNT 0.27 K/ L 0.04-0.36 (BEAKER) (test code = 416) BASOPHILS ABSOLUTE COUNT (BEAKER) 0.04 K/ L 0.01-0.08 (test code = 417) IMMATURE GRANULOCYTES-RELATIVE 4 % 0-1 H PERCENT (BEAKER) (test code = 2801) POCT-GLUCOSE [id number] 05:23:00 Test Item Value Reference Range Interpretation Comments POC-GLUCOSE METER 112 mg/dL 70-110 H : TESTED A T [facility] 6720 (BEAKER) (test code = [facility], 1538) 87124: Document Coordinator/Techni sharla ID = [id number] for DA ÁLVARO, JABIER POCT-GLUCOSE [id number] 23:11:00 Test Item Value Reference Range Interpretation Comments POC-GLUCOSE METER 121 mg/dL 70-110 H : TESTED A T [facility] 6720 (BEAKER) (test code = [facility], 1538) 04903: Document Coordinator/Techni sharla ID = [id number] for DA ÁLVARO, JABIER POCT-GLUCOSE [id number] 17:33:00 Test Item Value Reference Range Interpretation Comments POC-GLUCOSE METER 136 mg/dL 70-110 H : TESTED A T [facility] 6720 (BEAKER) (test code = [facility], 1538) 36571: Document Coordinator/Techni sharla ID = [id number] for RA MOS, LAKEISHA POCT-GLUCOSE [id number] 12:24:00 Test Item Value Reference Range Interpretation Comments POC-GLUCOSE METER 119 mg/dL 70-110 H : TESTED A T [facility] 6720 (BEAKER) (test code = [place], 1538) 23117: Document Coordinator/Techni sharla ID = [id number] for RA MOS, LAKEISHA CBC W/PLT COUNT & AUTO [id number] 10:43:00 Test Item Value Reference Range Interpretation Comments WHITE BLOOD CELL COUNT (BEAKER) 10.5 K/ L 3.5-10.5 (test code = 775) RED BLOOD CELL COUNT (BEAKER) 2.78 M/ L 3.93-5.22 L (test code = 761) HEMOGLOBIN (BEAKER) (test code = 8.3 GM/DL 11.2-15.7 L 410) HEMATOCRIT (BEAKER) (test code = 25.8 % 34.1-44.9 L 411) MEAN CORPUSCULAR VOLUME (BEAKER) 92.8 fL 79.4-94.8 (test code = 753) MEAN CORPUSCULAR HEMOGLOBIN 29.9 pg 25.6-32.2 (BEAKER) (test code = 751) MEAN CORPUSCULAR HEMOGLOBIN CONC 32.2 GM/DL 32.2-35.5 (BEAKER) (test code = 752) RED CELL DISTRIBUTION WIDTH 15.0 % 11.7-14.4 H (BEAKER) (test code = 412) PLATELET COUNT (BEAKER) (test 297 K/CU MM 150-450 code = 756) MEAN PLATELET VOLUME (BEAKER) 12.5 fL 9.4-12.3 H (test code = 754) NUCLEATED RED BLOOD CELLS 0 /100 WBC 0-0 (BEAKER) (test code = 413) (CELLAVISION MANUAL DIFF)2019-06-20 10:43:00 Test Item Value Reference Range Interpretation Comments NEUTROPHILS - REL 86 % (CELLAVISION)(BEAKER) (test code = 2816) LYMPHOCYTES - REL 6 % (CELLAVISION)(BEAKER) (test code = 2817) MONOCYTES - REL 3 % (CELLAVISION)(BEAKER) (test code = 2818) EOSINOPHILS - REL 1 % (CELLAVISION)(BEAKER) (test code = 2819) BANDS - REL (CELLAVISION)(BEAKER) 4 % 0-10 (test code = 2826) NEUTROPHILS - ABS 9.03 K/ul 1.56-6.13 H (CELLAVISION)(BEAKER) (test code = 2830) LYMPHOCYTES - ABS 0.63 K/ul 1.18-3.74 L (CELLAVISION)(BEAKER) (test code = 2831) MONOCYTES - ABS 0.32 K/uL 0.24-0.36 (CELLAVISION)(BEAKER) (test code = 2832) EOSINOPHILS - ABS 0.11 K/uL 0.04-0.36 (CELLAVISION)(BEAKER) (test code = 2834) BANDS - ABS (CELLAVISION)(BEAKER) 0.42 K/uL 0.00-0.80 (test code = 2840) TOTAL COUNTED (BEAKER) (test code = 100 1351) WBC MORPHOLOGY (BEAKER) (test code Normal = 487) LARGE PLT(BEAKER) (test code = Present 2156) POLYCHROMATOPHILLIC RBCS(BEAKER) 1+ few (test code = 478) ARTIFACT (CELLAVISION)(BEAKER) Present (test code = 3432) PLATELET CONCENTRATION Adequate (CELLAVISION)(BEAKER) (test code = 3438) Document Coordinator ID - Trudi Tidwell comments: Slide comments:[id number] 05:52:00 Test Item Value Reference Range Interpretation Comments PROTIME (BEAKER) (test code = 14.3 seconds 11.9-14.2 H 759) INR (BEAKER) (test code = 370) 1.1 <=5.9 PARTIAL THROMBOPLASTIN TIME 31.1 seconds 22.5-36.0 (BEAKER) (test code = 760) Effective 08/27/2018: PT Reference Range ChangeNew: 11.9-14.2 Previous: 11.7- 14.7RECOMMENDED COUMADIN/WARFARIN INR THERAPY RANGESSTANDARD DOSE: 2.0-3.0 Includes: PROPHYLAXIS for venous thrombosis, systemic embolization; TREATMENT for venous thrombosis and/or pulmonary embolus.HIGH RISK: Target INR is2.5-3.5 for patients wiht mechanical heart valves.[id number] 05:46:00 Test Item Value Reference Range Interpretation Comments PHOSPHORUS (BEAKER) (test code = 2.8 mg/dL 2.3-4.7 604) Document Coordinator ID - YOSSI [id number] 05:46:00 Test Item Value Reference Range Interpretation Comments MAGNESIUM (BEAKER) (test code = 2.2 mg/dL 1.6-2.6 627) Document Coordinator ID - YOSSI MBASIC METABOLIC [id number] 05:46:00 Test Item Value Reference Range Interpretation Comments SODIUM (BEAKER) 137 meq/L 136-145 (test code = 381) POTASSIUM (BEAKER) 3.5 meq/L 3.5-5.1 (test code = 379) CHLORIDE (BEAKER) 102 meq/L 98-107 (test code = 382) CO2 (BEAKER) (test 29 meq/L 22-29 code = 355) BLOOD UREA NITROGEN 74 mg/dL 7-21 H (BEAKER) (test code = 354) CREATININE (BEAKER) 0.79 mg/dL 0.57-1.25 (test code = 358) GLUCOSE RANDOM 125 mg/dL 70-105 H (BEAKER) (test code = 652) CALCIUM (BEAKER) 8.7 mg/dL 8.4-10.2 (test code = 697) EGFR (BEAKER) (test 69 mL/min/1.73 ESTIMA BLANCA GFR IS code = 1092) sq m NOT ACCURATE CREATININE CLEARANCE IN PREDICTING GLOMERULAR FILTRATION RATE . ESTIMATED GFR I S NOT APPLICABLE FOR DIALYSIS PATIEN TS. Document Coordinator ID - YOSSI MPOCT-GLUCOSE [id number] 05:42:00 Test Item Value Reference Range Interpretation Comments POC-GLUCOSE METER 141 mg/dL 70-110 H : [facility] (BEAKER) (test code = [place], 1538) 13341: Document Coordinator/Techni sharla ID = [id number] for JABIER KAISER POCT-GLUCOSE [id number] 23:49:00 Test Item Value Reference Range Interpretation Comments POC-GLUCOSE METER 123 mg/dL 70-110 H : TESTED A T [facility] 6720 (BEAKER) (test code = [facility], 1538) 91095: Document Coordinator/Techni sharla ID = [id number] for JABIER KAISER POCT-GLUCOSE [id number] 16:59:00 Test Item Value Reference Range Interpretation Comments POC-GLUCOSE METER 136 mg/dL 70-110 H : TESTED A T [facility] 6720 (BEAKER) (test code = [facility], 1538) 35206: Document Coordinator/Techni sharla ID = [id number] for RAVEN LDER, BEN BLOOD [id number] 12:19:00 Test Item Value Reference Range Interpretation Comments CULTURE (BEAKER) (test No growth in 5 days code = 1095) POCT-GLUCOSE [id number] 11:29:00 Test Item Value Reference Range Interpretation Comments POC-GLUCOSE METER 110 mg/dL 70-110 : TESTED A T [facility] 6720 (BEAKER) (test code = [facility], 153) 86495: Document Coordinator/Techni sharla ID = [id number] for RAVEN LDER, BEN CBC W/PLT COUNT & AUTO [id number] 08:59:00 Test Item Value Reference Range Interpretation Comments WHITE BLOOD CELL COUNT (BEAKER) 14.4 K/ L 3.5-10.5 H (test code = 775) RED BLOOD CELL COUNT (BEAKER) 2.92 M/ L 3.93-5.22 L (test code = 761) HEMOGLOBIN (BEAKER) (test code = 8.5 GM/DL 11.2-15.7 L 410) HEMATOCRIT (BEAKER) (test code = 27.3 % 34.1-44.9 L 411) MEAN CORPUSCULAR VOLUME (BEAKER) 93.5 fL 79.4-94.8 (test code = 753) MEAN CORPUSCULAR HEMOGLOBIN 29.1 pg 25.6-32.2 (BEAKER) (test code = 751) MEAN CORPUSCULAR HEMOGLOBIN CONC 31.1 GM/DL 32.2-35.5 L (BEAKER) (test code = 752) RED CELL DISTRIBUTION WIDTH 15.1 % 11.7-14.4 H (BEAKER) (test code = 412) PLATELET COUNT (BEAKER) (test 335 K/CU MM 150-450 code = 756) MEAN PLATELET VOLUME (BEAKER) 12.6 fL 9.4-12.3 H (test code = 754) NUCLEATED RED BLOOD CELLS 0 /100 WBC 0-0 (BEAKER) (test code = 413) (CELLAVISION MANUAL DIFF)2019-06-19 08:59:00 Test Item Value Reference Range Interpretation Comments NEUTROPHILS - REL 84 % (CELLAVISION)(BEAKER) (test code = 2816) LYMPHOCYTES - REL 9 % (CELLAVISION)(BEAKER) (test code = 2817) MONOCYTES - REL 4 % (CELLAVISION)(BEAKER) (test code = 2818) EOSINOPHILS - REL 1 % (CELLAVISION)(BEAKER) (test code = 2819) METAMYELOCYTES - REL 1 % 0-0 H (CELLAVISION)(BEAKER) (test code = 2821) BANDS - REL (CELLAVISION)(BEAKER) 1 % 0-10 (test code = 2826) NEUTROPHILS - ABS 12.10 K/ul 1.56-6.13 H (CELLAVISION)(BEAKER) (test code = 2830) LYMPHOCYTES - ABS 1.30 K/ul 1.18-3.74 (CELLAVISION)(BEAKER) (test code = 2831) MONOCYTES - ABS 0.58 K/uL 0.24-0.36 H (CELLAVISION)(BEAKER) (test code = 2832) EOSINOPHILS - ABS 0.14 K/uL 0.04-0.36 (CELLAVISION)(BEAKER) (test code = 2834) METAMYELOCYTES - ABS 0.14 K/uL 0.00-0.00 H (CELLAVISION)(BEAKER) (test code = 2836) BANDS - ABS (CELLAVISION)(BEAKER) 0.14 K/uL 0.00-0.80 (test code = 2840) TOTAL COUNTED (BEAKER) (test code 100 = 1351) SMUDGE CELLS (BEAKER) (test code = Present 1371) GIANT PLATELETS (BEAKER) (test Present code = 313) ANISOCYTOSIS (BEAKER) (test code = 1+ few 961) MICROCYTES (BEAKER) (test code = 1+ few 965) PLATELET CONCENTRATION Adequate (CELLAVISION)(BEAKER) (test code = 3438) Document Coordinator ID - Julio Santos comments: Slide comments:POCT-GLUCOSE [id number] 06:10:00 Test Item Value Reference Range Interpretation Comments POC-GLUCOSE METER 134 mg/dL 70-110 H : TESTED A T [facility] 6720 (BEAKER) (test code = [place], 1538) 46300: Document Coordinator/Techni sharla ID = [id number] for JABIER KAISER [id number] 04:42:00 Test Item Value Reference Range Interpretation Comments MAGNESIUM (BEAKER) 2.1 mg/dL 1.6-2.6 Specimen slightly (test code = 627) hemolyzed Document Coordinator ID - YOSSI [id number] 04:42:00 Test Item Value Reference Range Interpretation Comments PHOSPHORUS (BEAKER) 2.7 mg/dL 2.3-4.7 Specimen slightly (test code = 604) hemolyzed Document Coordinator ID - YOSSI MBASIC METABOLIC [id number] 04:42:00 Test Item Value Reference Range Interpretation Comments SODIUM (BEAKER) 137 meq/L 136-145 (test code = 381) POTASSIUM (BEAKER) 3.9 meq/L 3.5-5.1 Specimen slightly (test code = 379) hemolyzed CHLORIDE (BEAKER) 103 meq/L 98-107 (test code = 382) CO2 (BEAKER) (test 26 meq/L 22-29 code = 355) BLOOD UREA NITROGEN 74 mg/dL 7-21 H (BEAKER) (test code = 354) CREATININE (BEAKER) 0.87 mg/dL 0.57-1.25 Specimen slightly (test code = 358) hemolyzed GLUCOSE RANDOM 109 mg/dL 70-105 H (BEAKER) (test code = 652) CALCIUM (BEAKER) 8.7 mg/dL 8.4-10.2 (test code = 697) EGFR (BEAKER) (test 62 mL/min/1.73 ESTIMA BLANCA GFR IS code = 1092) sq m NOT ACCURATE CREATININE CLEARANCE IN PREDICTING GLOMERULAR FILTRATION RATE . ESTIMATED GFR I S NOT APPLICABLE FOR DIALYSIS PATIEN TS. Document Coordinator ID - YOSSI [id number] 04:41:00 Test Item Value Reference Range Interpretation Comments PROTIME (BEAKER) (test code = 14.3 seconds 11.9-14.2 H 759) INR (BEAKER) (test code = 370) 1.1 <=5.9 PARTIAL THROMBOPLASTIN TIME 32.1 seconds 22.5-36.0 (BEAKER) (test code = 760) Effective 08/27/2018: PT Reference Range ChangeNew: 11.9-14.2 Previous: 11.7- 14.7RECOMMENDED COUMADIN/WARFARIN INR THERAPY RANGESSTANDARD DOSE: 2.0-3.0 Includes: PROPHYLAXIS for venous thrombosis, systemic embolization; TREATMENT for venous thrombosis and/or pulmonary embolus.HIGH RISK: Target INR is2.5-3.5 for patients wiht mechanical heart valves.POCT-GLUCOSE [id number] 01:13:00 Test Item Value Reference Range Interpretation Comments POC-GLUCOSE METER 141 mg/dL 70-110 H : TESTED A T [facility] 6720 ([employer]) (test code = [facility], 1538) 18988: Document Coordinator/Techni sharla ID = [id number] for JABIER KAISER POCT-GLUCOSE [id number] 18:19:00 Test Item Value Reference Range Interpretation Comments POC-GLUCOSE METER 130 mg/dL 70-110 H : TESTED A T [facility] 6720 ([employer]) (test code = [facility], 1538) 00511: Document Coordinator/Techni sharla ID = [id number] for RA GORMAN LAKEISHA CT, ABDOMEN - PELVIS, PANCREAS [id number] 13:25:00Anesthesia:->None FINAL REPORT ABDOMINAL AND PELVIS CT [...] MDReport Verified Date/Time: 06/18/2019 13:25:11 Reading Location: [address] Body Reading Room -GLUCOSE [id number] 12:13:00 Test Item Value Reference Range Interpretation Comments POC-GLUCOSE METER 181 mg/dL 70-110 H : TESTED A T [facility] 6720 ([facility]) (test code = [facility] Part[facility], 1538) 09997: Document Coordinator/Techni sharla ID = [id number] for RA MOS, LAKEISHA CBC W/PLT COUNT & AUTO [id number] 10:15:00 Test Item Value Reference Range Interpretation Comments WHITE BLOOD CELL COUNT (BEAKER) 13.7 K/ L 3.5-10.5 H (test code = 775) RED BLOOD CELL COUNT (BEAKER) 3.11 M/ L 3.93-5.22 L (test code = 761) HEMOGLOBIN (BEAKER) (test code = 8.8 GM/DL 11.2-15.7 L 410) HEMATOCRIT (BEAKER) (test code = 28.5 % 34.1-44.9 L 411) MEAN CORPUSCULAR VOLUME (BEAKER) 91.6 fL 79.4-94.8 (test code = 753) MEAN CORPUSCULAR HEMOGLOBIN 28.3 pg 25.6-32.2 (BEAKER) (test code = 751) MEAN CORPUSCULAR HEMOGLOBIN CONC 30.9 GM/DL 32.2-35.5 L (BEAKER) (test code = 752) RED CELL DISTRIBUTION WIDTH 15.1 % 11.7-14.4 H (BEAKER) (test code = 412) PLATELET COUNT (BEAKER) (test 356 K/CU MM 150-450 code = 756) MEAN PLATELET VOLUME (BEAKER) 12.0 fL 9.4-12.3 (test code = 754) NUCLEATED RED BLOOD CELLS 0 /100 WBC 0-0 (BEAKER) (test code = 413) (CELLAVISION MANUAL DIFF)2019-06-18 10:15:00 Test Item Value Reference Range Interpretation Comments NEUTROPHILS - REL 88 % (CELLAVISION)(BEAKER) (test code = 2816) LYMPHOCYTES - REL 5 % (CELLAVISION)(BEAKER) (test code = 2817) MONOCYTES - REL 1 % (CELLAVISION)(BEAKER) (test code = 2818) EOSINOPHILS - REL 3 % (CELLAVISION)(BEAKER) (test code = 2819) BASOPHILS - REL 1 % (CELLAVISION)(BEAKER) (test code = 2820) MYELOCYTES - REL 2 % 0-0 H (CELLAVISION)(BEAKER) (test code = 2822) NEUTROPHILS - ABS 12.06 K/ul 1.56-6.13 H (CELLAVISION)(BEAKER) (test code = 2830) LYMPHOCYTES - ABS 0.69 K/ul 1.18-3.74 L (CELLAVISION)(BEAKER) (test code = 2831) MONOCYTES - ABS 0.14 K/uL 0.24-0.36 L (CELLAVISION)(BEAKER) (test code = 2832) EOSINOPHILS - ABS 0.41 K/uL 0.04-0.36 H (CELLAVISION)(BEAKER) (test code = 2834) BASOPHILS - ABS 0.14 K/uL 0.01-0.08 H (CELLAVISION)(BEAKER) (test code = 2835) MYELOCYTES-ABS 0.27 K/uL 0.00-0.00 H (CELLAVISION)(BEAKER) (test code = 2837) TOTAL COUNTED (BEAKER) (test code 100 = 1351) PLT MORPHOLOGY (BEAKER) (test code Normal = 486) TOXIC GRANULATION (BEAKER) (test Present code = 771) HYPOCHROMIA (BEAKER) (test code = 1+ few 963) ANISOCYTOSIS (BEAKER) (test code = 1+ few 961) ARTIFACT (CELLAVISION)(BEAKER) Present (test code = 3432) PLATELET CONCENTRATION Adequate (CELLAVISION)(BEAKER) (test code = 3438) Document Coordinator ID - Yanet Huertas comments: Slide comments:[id number] 07:45:00 Test Item Value Reference Range Interpretation Comments PHOSPHORUS (BEAKER) (test code = 2.8 mg/dL 2.3-4.7 604) Document Coordinator ID - NELLIE [id number] 07:45:00 Test Item Value Reference Range Interpretation Comments MAGNESIUM (BEAKER) (test code = 2.1 mg/dL 1.6-2.6 627) Document Coordinator ID - NELLIE FBASIC METABOLIC [id number] 07:45:00 Test Item Value Reference Range Interpretation Comments SODIUM (BEAKER) 134 meq/L 136-145 L (test code = 381) POTASSIUM (BEAKER) 3.7 meq/L 3.5-5.1 (test code = 379) CHLORIDE (BEAKER) 102 meq/L 98-107 (test code = 382) CO2 (BEAKER) (test 25 meq/L 22-29 code = 355) BLOOD UREA NITROGEN 68 mg/dL 7-21 H (BEAKER) (test code = 354) CREATININE (BEAKER) 0.79 mg/dL 0.57-1.25 (test code = 358) GLUCOSE RANDOM 150 mg/dL 70-105 H (BEAKER) (test code = 652) CALCIUM (BEAKER) 8.6 mg/dL 8.4-10.2 (test code = 697) EGFR (BEAKER) (test 69 mL/min/1.73 ESTIMA BLANCA GFR IS code = 1092) sq m NOT ACCURATE CREATININE CLEARANCE IN PREDICTING GLOMERULAR FILTRATION RATE . ESTIMATED GFR I S NOT APPLICABLE FOR DIALYSIS PATIEN TS. Document Coordinator ID - NELLIE FPT/[id number] 06:24:00 Test Item Value Reference Range Interpretation Comments PROTIME (BEAKER) (test code = 14.6 seconds 11.9-14.2 H 759) INR (BEAKER) (test code = 370) 1.2 <=5.9 PARTIAL THROMBOPLASTIN TIME 31.2 seconds 22.5-36.0 (BEAKER) (test code = 760) Effective 08/27/2018: PT Reference Range ChangeNew: 11.9-14.2 Previous: 11.7- 14.7RECOMMENDED COUMADIN/WARFARIN INR THERAPY RANGESSTANDARD DOSE: 2.0-3.0 Includes: PROPHYLAXIS for venous thrombosis, systemic embolization; TREATMENT for venous thrombosis and/or pulmonary embolus.HIGH RISK: Target INR is2.5-3.5 for patients wiht mechanical heart valves.POCT-GLUCOSE [id number] 06:16:00 Test Item Value Reference Range Interpretation Comments POC-GLUCOSE METER 143 mg/dL 70-110 H : TESTED A T [facility] 6720 (BEAKER) (test code = [facility], 1538) 25958: Document Coordinator/Techni sharla ID = [id number] for MIRIAM SINGH POCT-GLUCOSE [id number] 01:18:00 Test Item Value Reference Range Interpretation Comments POC-GLUCOSE METER 156 mg/dL 70-110 H : TESTED A T [facility] 6720 (BEAKER) (test code = [facility], 1538) 88384: Document Coordinator/Techni sharla ID = [id number] for MIRIAM SINGH ANAEROBIC [id number] 19:12:00 Test Item Value Reference Range Interpretation Comments CULTURE (BEAKER) (test No anaerobes isolated code = 1095) POCT-GLUCOSE [id number] 18:03:00 Test Item Value Reference Range Interpretation Comments POC-GLUCOSE METER 110 mg/dL 70-110 : TESTED A T [facility] 6720 (BEAKER) (test code = [facility], 1538) 24461: Document Coordinator/Techni sharla ID = [id number] for Seda Arnold POCT-GLUCOSE [id number] 12:42:00 Test Item Value Reference Range Interpretation Comments POC-GLUCOSE METER 183 mg/dL 70-110 H : TESTED A T [facility] 6720 (BEAKER) (test code = [place], 1538) 91795: Document Coordinator/Techni sharla ID = [id number] for Seda Arnold VANCOMYCIN LEVEL, [id number] 11:55:00 Test Item Value Reference Range Interpretation Comments VANCOMYCIN TROUGH (BEAKER) (test 19.4 ug/mL 10.0-20.0 code = 522) Document Coordinator ID - MARY [facility] W/PLT COUNT & AUTO [id number] 10:14:00 Test Item Value Reference Range Interpretation Comments WHITE BLOOD CELL COUNT (BEAKER) 16.5 K/ L 3.5-10.5 H (test code = 775) RED BLOOD CELL COUNT (BEAKER) 3.21 M/ L 3.93-5.22 L (test code = 761) HEMOGLOBIN (BEAKER) (test code = 9.2 GM/DL 11.2-15.7 L 410) HEMATOCRIT (BEAKER) (test code = 29.5 % 34.1-44.9 L 411) MEAN CORPUSCULAR VOLUME (BEAKER) 91.9 fL 79.4-94.8 (test code = 753) MEAN CORPUSCULAR HEMOGLOBIN 28.7 pg 25.6-32.2 (BEAKER) (test code = 751) MEAN CORPUSCULAR HEMOGLOBIN CONC 31.2 GM/DL 32.2-35.5 L (BEAKER) (test code = 752) RED CELL DISTRIBUTION WIDTH 15.2 % 11.7-14.4 H (BEAKER) (test code = 412) PLATELET COUNT (BEAKER) (test 370 K/CU MM 150-450 code = 756) MEAN PLATELET VOLUME (BEAKER) 12.0 fL 9.4-12.3 (test code = 754) NUCLEATED RED BLOOD CELLS 0 /100 WBC 0-0 (BEAKER) (test code = 413) (CELLAVISION MANUAL DIFF)2019-06-17 10:14:00 Test Item Value Reference Range Interpretation Comments NEUTROPHILS - REL 85 % (CELLAVISION)(BEAKER) (test code = 2816) LYMPHOCYTES - REL 4 % (CELLAVISION)(BEAKER) (test code = 2817) MONOCYTES - REL 6 % (CELLAVISION)(BEAKER) (test code = 2818) BASOPHILS - REL 1 % (CELLAVISION)(BEAKER) (test code = 2820) METAMYELOCYTES - REL 3 % 0-0 H (CELLAVISION)(BEAKER) (test code = 2821) MYELOCYTES - REL 1 % 0-0 H (CELLAVISION)(BEAKER) (test code = 2822) NEUTROPHILS - ABS 14.03 K/ul 1.56-6.13 H (CELLAVISION)(BEAKER) (test code = 2830) LYMPHOCYTES - ABS 0.66 K/ul 1.18-3.74 L (CELLAVISION)(BEAKER) (test code = 2831) MONOCYTES - ABS 0.99 K/uL 0.24-0.36 H (CELLAVISION)(BEAKER) (test code = 2832) BASOPHILS - ABS 0.17 K/uL 0.01-0.08 H (CELLAVISION)(BEAKER) (test code = 2835) METAMYELOCYTES - ABS 0.50 K/uL 0.00-0.00 H (CELLAVISION)(BEAKER) (test code = 2836) MYELOCYTES-ABS 0.17 K/uL 0.00-0.00 H (CELLAVISION)(BEAKER) (test code = 2837) TOTAL COUNTED (BEAKER) (test code 100 = 1351) PLT MORPHOLOGY (BEAKER) (test code Normal = 486) TOXIC GRANULATION (BEAKER) (test Present code = 771) HYPOCHROMIA (BEAKER) (test code = 1+ few 963) ANISOCYTOSIS (BEAKER) (test code = 1+ few 961) ARTIFACT (CELLAVISION)(BEAKER) Present (test code = 3432) PLATELET CONCENTRATION Adequate (CELLAVISION)(BEAKER) (test code = 3438) Document Coordinator ID - Yanet Huertas comments: Slide comments:POCT-GLUCOSE [id number] 05:38:00 Test Item Value Reference Range Interpretation Comments POC-GLUCOSE METER 150 mg/dL 70-110 H : TESTED A T [facility] 6720 (BEAKER) (test code = CELINA ARIZA, 1538) [address]: Document Coordinator/Techni sharla ID = [id number] for Be Jean gordillocibeessie [id number] 05:32:00 Test Item Value Reference Range Interpretation Comments MAGNESIUM (BEAKER) 2.0 mg/dL 1.6-2.6 Specimen slightly (test code = 627) hemolyzed Document Coordinator ID - YOSSI [id number] 05:32:00 Test Item Value Reference Range Interpretation Comments PHOSPHORUS (BEAKER) 2.5 mg/dL 2.3-4.7 Specimen slightly (test code = 604) hemolyzed Document Coordinator ID - YOSSI MBASIC METABOLIC [id number] 05:32:00 Test Item Value Reference Range Interpretation Comments SODIUM (BEAKER) 138 meq/L 136-145 (test code = 381) POTASSIUM (BEAKER) 4.1 meq/L 3.5-5.1 Specimen slightly (test code = 379) hemolyzed CHLORIDE (BEAKER) 107 meq/L 98-107 (test code = 382) CO2 (BEAKER) (test 26 meq/L 22-29 code = 355) BLOOD UREA NITROGEN 67 mg/dL 7-21 H (BEAKER) (test code = 354) CREATININE (BEAKER) 0.83 mg/dL 0.57-1.25 Specimen slightly (test code = 358) hemolyzed GLUCOSE RANDOM 112 mg/dL 70-105 H (BEAKER) (test code = 652) CALCIUM (BEAKER) 9.0 mg/dL 8.4-10.2 (test code = 697) EGFR (BEAKER) (test 65 mL/min/1.73 ESTIMA BLANCA GFR IS code = 1092) sq m NOT ACCURATE CREATININE CLEARANCE IN PREDICTING GLOMERULAR FILTRATION RATE . ESTIMATED GFR I S NOT APPLICABLE FOR DIALYSIS PATIEN TS. Document Coordinator ID - YOSSI [id number] 04:58:00 Test Item Value Reference Range Interpretation Comments PROTIME (BEAKER) (test code = 14.6 seconds 11.9-14.2 H 759) INR (BEAKER) (test code = 370) 1.2 <=5.9 PARTIAL THROMBOPLASTIN TIME 31.1 seconds 22.5-36.0 (BEAKER) (test code = 760) Effective 08/27/2018: PT Reference Range ChangeNew: 11.9-14.2 Previous: 11.7- 14.7RECOMMENDED COUMADIN/WARFARIN INR THERAPY RANGESSTANDARD DOSE: 2.0-3.0 Includes: PROPHYLAXIS for venous thrombosis, systemic embolization; TREATMENT for venous thrombosis and/or pulmonary embolus.HIGH RISK: Target INR is2.5-3.5 for patients wiht mechanical heart valves.POCT-GLUCOSE [id number] 00:03:00 Test Item Value Reference Range Interpretation Comments POC-GLUCOSE METER 149 mg/dL 70-110 H : TESTED A T [facility] 6720 (BEAKER) (test code = [facility], 1538) 877[address]: Document Coordinator/Techni sharla ID = [id number] for Aldo Cline POCT-GLUCOSE [id number] 17:50:00 Test Item Value Reference Range Interpretation Comments POC-GLUCOSE METER 158 mg/dL 70-110 H : TESTED A T [facility] 6720 (BEAKER) (test code = [facility], 1538) 21639: Document Coordinator/Techni sharla ID = [id number] for PRINCESS OSORIO POCT-GLUCOSE [id number] 13:03:00 Test Item Value Reference Range Interpretation Comments POC-GLUCOSE METER 146 mg/dL 70-110 H : TESTED A T [facility] 6720 (BEAKER) (test code = [facility], 1538) 04315: Document Coordinator/Techni sharla ID = [id number] for PRINCESS OSORIO CBC W/PLT COUNT & AUTO [id number] 09:53:00 Test Item Value Reference Range Interpretation Comments WHITE BLOOD CELL COUNT (BEAKER) 21.2 K/ L 3.5-10.5 H (test code = 775) RED BLOOD CELL COUNT (BEAKER) 3.04 M/ L 3.93-5.22 L (test code = 761) HEMOGLOBIN (BEAKER) (test code = 9.0 GM/DL 11.2-15.7 L 410) HEMATOCRIT (BEAKER) (test code = 28.2 % 34.1-44.9 L 411) MEAN CORPUSCULAR VOLUME (BEAKER) 92.8 fL 79.4-94.8 (test code = 753) MEAN CORPUSCULAR HEMOGLOBIN 29.6 pg 25.6-32.2 (BEAKER) (test code = 751) MEAN CORPUSCULAR HEMOGLOBIN CONC 31.9 GM/DL 32.2-35.5 L (BEAKER) (test code = 752) RED CELL DISTRIBUTION WIDTH 15.5 % 11.7-14.4 H (BEAKER) (test code = 412) PLATELET COUNT (BEAKER) (test 352 K/CU MM 150-450 code = 756) MEAN PLATELET VOLUME (BEAKER) 12.2 fL 9.4-12.3 (test code = 754) NUCLEATED RED BLOOD CELLS 0 /100 WBC 0-0 (BEAKER) (test code = 413) (CELLAVISION MANUAL DIFF)2019-06-16 09:53:00 Test Item Value Reference Range Interpretation Comments NEUTROPHILS - REL 84 % (CELLAVISION)(BEAKER) (test code = 2816) LYMPHOCYTES - REL 5 % (CELLAVISION)(BEAKER) (test code = 2817) MONOCYTES - REL 4 % (CELLAVISION)(BEAKER) (test code = 2818) EOSINOPHILS - REL 2 % (CELLAVISION)(BEAKER) (test code = 2819) METAMYELOCYTES - REL 2 % 0-0 H (CELLAVISION)(BEAKER) (test code = 2821) MYELOCYTES - REL 2 % 0-0 H (CELLAVISION)(BEAKER) (test code = 2822) BANDS - REL (CELLAVISION)(BEAKER) 1 % 0-10 (test code = 2826) NEUTROPHILS - ABS 17.81 K/ul 1.56-6.13 H (CELLAVISION)(BEAKER) (test code = 2830) LYMPHOCYTES - ABS 1.06 K/ul 1.18-3.74 L (CELLAVISION)(BEAKER) (test code = 2831) MONOCYTES - ABS 0.85 K/uL 0.24-0.36 H (CELLAVISION)(BEAKER) (test code = 2832) EOSINOPHILS - ABS 0.42 K/uL 0.04-0.36 H (CELLAVISION)(BEAKER) (test code = 2834) METAMYELOCYTES - ABS 0.42 K/uL 0.00-0.00 H (CELLAVISION)(BEAKER) (test code = 2836) MYELOCYTES-ABS 0.42 K/uL 0.00-0.00 H (CELLAVISION)(BEAKER) (test code = 2837) BANDS - ABS (CELLAVISION)(BEAKER) 0.21 K/uL 0.00-0.80 (test code = 2840) TOTAL COUNTED (BEAKER) (test code 100 = 1351) WBC MORPHOLOGY (BEAKER) (test code Normal = 487) GIANT PLATELETS (BEAKER) (test Present code = 313) POLYCHROMATOPHILLIC RBCS(BEAKER) 1+ few (test code = 478) HYPOCHROMIA (BEAKER) (test code = 1+ few 963) ANISOCYTOSIS (BEAKER) (test code = 1+ few 961) OVALOCYTES (BEAKER) (test code = 1+ few 477) ARTIFACT (CELLAVISION)(BEAKER) Present (test code = 3432) PLATELET CONCENTRATION Adequate (CELLAVISION)(BEAKER) (test code = 3438) Document Coordinator ID - Nellie Soto comments: Slide comments:POCT-GLUCOSE METER 2019-06-16 06:15:00 Test Item Value Reference Range Interpretation Comments POC-GLUCOSE METER 166 mg/dL 70-110 H : TESTED A T [facility] 6720 (BEAKER) (test code = [place], 1538) 78[address]: Document Coordinator/Techni sharla ID = [id number] for ANA CHAN [id number] 05:25:00 Test Item Value Reference Range Interpretation Comments PHOSPHORUS (BEAKER) (test code = 2.8 mg/dL 2.3-4.7 604) Document Coordinator ID - YOSSI [id number] 05:25:00 Test Item Value Reference Range Interpretation Comments MAGNESIUM (BEAKER) (test code = 2.2 mg/dL 1.6-2.6 627) Document Coordinator ID - YOSSI MBASIC METABOLIC [id number] 05:25:00 Test Item Value Reference Range Interpretation Comments SODIUM (BEAKER) 136 meq/L 136-145 (test code = 381) POTASSIUM (BEAKER) 3.6 meq/L 3.5-5.1 (test code = 379) CHLORIDE (BEAKER) 104 meq/L 98-107 (test code = 382) CO2 (BEAKER) (test 23 meq/L 22-29 code = 355) BLOOD UREA NITROGEN 67 mg/dL 7-21 H (BEAKER) (test code = 354) CREATININE (BEAKER) 0.83 mg/dL 0.57-1.25 (test code = 358) GLUCOSE RANDOM 165 mg/dL 70-105 H (BEAKER) (test code = 652) CALCIUM (BEAKER) 8.6 mg/dL 8.4-10.2 (test code = 697) EGFR (BEAKER) (test 65 mL/min/1.73 ESTIMA BLANCA GFR IS code = 1092) sq m NOT ACCURATE CREATININE CLEARANCE IN PREDICTING GLOMERULAR FILTRATION RATE . ESTIMATED GFR I S NOT APPLICABLE FOR DIALYSIS PATIEN TS. Document Coordinator ID - YOSSI [id number] 04:37:00 Test Item Value Reference Range Interpretation Comments PROTIME (BEAKER) (test code = 14.6 seconds 11.9-14.2 H 759) INR (BEAKER) (test code = 370) 1.2 <=5.9 PARTIAL THROMBOPLASTIN TIME 31.4 seconds 22.5-36.0 (BEAKER) (test code = 760) Effective 08/27/2018: PT Reference Range ChangeNew: 11.9-14.2 Previous: 11.7- 14.7RECOMMENDED COUMADIN/WARFARIN INR THERAPY RANGESSTANDARD DOSE: 2.0-3.0 Includes: PROPHYLAXIS for venous thrombosis, systemic embolization; TREATMENT for venous thrombosis and/or pulmonary embolus.HIGH RISK: Target INR is2.5-3.5 for patients wiht mechanical heart valves.POCT-GLUCOSE [id number] 23:59:00 Test Item Value Reference Range Interpretation Comments POC-GLUCOSE METER 192 mg/dL 70-110 H : TESTED A T [facility] 6720 (Shoutly) (test code = [employer] [facility], 153) 32468: Document Coordinator/Techni sharla ID = [id number] for ANA CHAN POCT-GLUCOSE [id number] 18:36:00 Test Item Value Reference Range Interpretation Comments POC-GLUCOSE METER 170 mg/dL 70-110 H : TESTED A T [facility] 6720 (Shoutly) (test code = [employer] [place], 1538) 78394: Document Coordinator/Techni sharla ID = [id number] for PRINCESS OSORIO POCT-GLUCOSE [id number] 12:08:00 Test Item Value Reference Range Interpretation Comments POC-GLUCOSE METER 171 mg/dL 70-110 H : TESTED A T [facility] 6720 (BEAKER) (test code = [place], 1538) 24531: Document Coordinator/Techni sharla ID = [id number] for PRINCESS OSORIO CBC W/PLT COUNT & AUTO [id number] 10:15:00 Test Item Value Reference Range Interpretation Comments WHITE BLOOD CELL COUNT (BEAKER) 20.5 K/ L 3.5-10.5 H (test code = 775) RED BLOOD CELL COUNT (BEAKER) 3.32 M/ L 3.93-5.22 L (test code = 761) HEMOGLOBIN (BEAKER) (test code = 9.2 GM/DL 11.2-15.7 L 410) HEMATOCRIT (BEAKER) (test code = 30.3 % 34.1-44.9 L 411) MEAN CORPUSCULAR VOLUME (BEAKER) 91.3 fL 79.4-94.8 (test code = 753) MEAN CORPUSCULAR HEMOGLOBIN 27.7 pg 25.6-32.2 (BEAKER) (test code = 751) MEAN CORPUSCULAR HEMOGLOBIN CONC 30.4 GM/DL 32.2-35.5 L (BEAKER) (test code = 752) RED CELL DISTRIBUTION WIDTH 15.7 % 11.7-14.4 H (BEAKER) (test code = 412) PLATELET COUNT (BEAKER) (test 402 K/CU MM 150-450 code = 756) MEAN PLATELET VOLUME (BEAKER) 12.3 fL 9.4-12.3 (test code = 754) NUCLEATED RED BLOOD CELLS 0 /100 WBC 0-0 (BEAKER) (test code = 413) (CELLAVISION MANUAL DIFF)2019-06-15 10:15:00 Test Item Value Reference Range Interpretation Comments NEUTROPHILS - REL 90 % (CELLAVISION)(BEAKER) (test code = 2816) LYMPHOCYTES - REL 2 % (CELLAVISION)(BEAKER) (test code = 2817) MONOCYTES - REL 3 % (CELLAVISION)(BEAKER) (test code = 2818) MYELOCYTES - REL 1 % 0-0 H (CELLAVISION)(BEAKER) (test code = 2822) BANDS - REL (CELLAVISION)(BEAKER) 2 % 0-10 (test code = 2826) ATYPICAL LYMPHOCYTES - REL 2 % 0-0 H (CELLAVISION)(BEAKER) (test code = 2829) NEUTROPHILS - ABS 18.45 K/ul 1.56-6.13 H (CELLAVISION)(BEAKER) (test code = 2830) LYMPHOCYTES - ABS 0.41 K/ul 1.18-3.74 L (CELLAVISION)(BEAKER) (test code = 2831) MONOCYTES - ABS 0.62 K/uL 0.24-0.36 H (CELLAVISION)(BEAKER) (test code = 2832) MYELOCYTES-ABS 0.21 K/uL 0.00-0.00 H (CELLAVISION)(BEAKER) (test code = 2837) BANDS - ABS (CELLAVISION)(BEAKER) 0.41 K/uL 0.00-0.80 (test code = 2840) ATYPICAL LYMPHOCYTES - ABS 0.41 K/uL 0.00-0.00 H (CELLAVISION)(BEAKER) (test code = 2858) TOTAL COUNTED (BEAKER) (test code 100 = 1351) RBC MORPHOLOGY (BEAKER) (test code Normal = 762) WBC MORPHOLOGY (BEAKER) (test code Normal = 487) PLT MORPHOLOGY (BEAKER) (test code Normal = 486) ANISOCYTOSIS (BEAKER) (test code = 1+ few 961) MICROCYTES (BEAKER) (test code = 1+ few 965) ARTIFACT (CELLAVISION)(BEAKER) Present (test code = 3432) PLATELET CONCENTRATION Adequate (CELLAVISION)(BEAKER) (test code = 3438) Document Coordinator ID - Rosario OverholtUser comments: Slide comments:[id number] 07:03:00 Test Item Value Reference Range Interpretation Comments MAGNESIUM (BEAKER) 2.3 mg/dL 1.6-2.6 Specimen slightly (test code = 627) hemolyzed Document Coordinator ID - NELLIE [id number] 07:03:00 Test Item Value Reference Range Interpretation Comments PHOSPHORUS (BEAKER) 3.2 mg/dL 2.3-4.7 Specimen slightly (test code = 604) hemolyzed Document Coordinator ID - NELLIE FBASIC METABOLIC [id number] 07:03:00 Test Item Value Reference Range Interpretation Comments SODIUM (BEAKER) 134 meq/L 136-145 L (test code = 381) POTASSIUM (BEAKER) 3.8 meq/L 3.5-5.1 Specimen slightly (test code = 379) hemolyzed CHLORIDE (BEAKER) 102 meq/L 98-107 (test code = 382) CO2 (BEAKER) (test 23 meq/L 22-29 code = 355) BLOOD UREA NITROGEN 60 mg/dL 7-21 H (BEAKER) (test code = 354) CREATININE (BEAKER) 0.83 mg/dL 0.57-1.25 Specimen slightly (test code = 358) hemolyzed GLUCOSE RANDOM 195 mg/dL 70-105 H (BEAKER) (test code = 652) CALCIUM (BEAKER) 8.8 mg/dL 8.4-10.2 (test code = 697) EGFR (BEAKER) (test 65 mL/min/1.73 ESTIMA BLANCA GFR IS code = 1092) sq m NOT ACCURATE CREATININE CLEARANCE IN PREDICTING GLOMERULAR FILTRATION RATE . ESTIMATED GFR I S NOT APPLICABLE FOR DIALYSIS PATIEN TS. Document Coordinator JUAN GOULD FVANCOMYCIN LEVEL, [id number] 06:33:00 Test Item Value Reference Range Interpretation Comments VANCOMYCIN RANDOM (BEAKER) (test 18.2 ug/mL code = 523) Reference Range: No NormalsOperator JUAN GOULD [id number] 06:32:00 Test Item Value Reference Range Interpretation Comments PROTIME (BEAKER) (test code = 14.5 seconds 11.9-14.2 H 759) INR (BEAKER) (test code = 370) 1.2 <=5.9 PARTIAL THROMBOPLASTIN TIME 31.2 seconds 22.5-36.0 (BEAKER) (test code = 760) Effective 08/27/2018: PT Reference Range ChangeNew: 11.9-14.2 Previous: 11.7- 14.7RECOMMENDED COUMADIN/WARFARIN INR THERAPY RANGESSTANDARD DOSE: 2.0-3.0 Includes: PROPHYLAXIS for venous thrombosis, systemic embolization; TREATMENT for venous thrombosis and/or pulmonary embolus.HIGH RISK: Target INR is2.5-3.5 for patients wiht mechanical heart valves.POCT-GLUCOSE [id number] 06:22:00 Test Item Value Reference Range Interpretation Comments POC-GLUCOSE METER 182 mg/dL 70-110 H : TESTED A T [facility] 6720 (BEAKER) (test code = [facility], 153) 07489: Document Coordinator/Techni sharla ID = [id number] for ALAN IGHT, ANA POCT-GLUCOSE [id number] 00:16:00 Test Item Value Reference Range Interpretation Comments POC-GLUCOSE METER 183 mg/dL 70-110 H : TESTED A T [facility] 6720 (BEAKER) (test code = [facility], 153) 43246: Document Coordinator/Techni sharla ID = [id number] for ALAN IGHT, ANA BLOOD [id number] 19:00:00 Test Item Value Reference Range Interpretation Comments CULTURE (BEAKER) (test No growth in 5 days code = 1095) POCT-GLUCOSE [id number] 17:50:00 Test Item Value Reference Range Interpretation Comments POC-GLUCOSE METER 151 mg/dL 70-110 H : TESTED A T [facility] 6720 (BEAKER) (test code = [facility], 153) 85071: Document Coordinator/Techni sharla ID = [id number] for LAZARO SALMONPRINCESS PHI BODY FLUID CULTURE + GRAM [id number] 14:34:00 Test Item Value Reference Range Interpretation Comments CULTURE (BEAKER) (test No growth code = 1095) GRAM STAIN RESULT No White blood cells (BEAKER) (test code = seen 1123) GRAM STAIN RESULT No organisms seen (BEAKER) (test code = 81993) POCT-GLUCOSE [id number] 13:21:00 Test Item Value Reference Range Interpretation Comments POC-GLUCOSE METER 143 mg/dL 70-110 H : TESTED A T [facility] 6720 (BEAKER) (test code = [facility], 153) 56813: Document Coordinator/Techni sharla ID = [id number] for PA RKERPRINCESS CBC W/PLT COUNT & AUTO [id number] 08:06:00 Test Item Value Reference Range Interpretation Comments WHITE BLOOD CELL COUNT (BEAKER) 22.6 K/ L 3.5-10.5 H (test code = 775) RED BLOOD CELL COUNT (BEAKER) 3.24 M/ L 3.93-5.22 L (test code = 761) HEMOGLOBIN (BEAKER) (test code = 9.5 GM/DL 11.2-15.7 L 410) HEMATOCRIT (BEAKER) (test code = 29.1 % 34.1-44.9 L 411) MEAN CORPUSCULAR VOLUME (BEAKER) 89.8 fL 79.4-94.8 (test code = 753) MEAN CORPUSCULAR HEMOGLOBIN 29.3 pg 25.6-32.2 (BEAKER) (test code = 751) MEAN CORPUSCULAR HEMOGLOBIN CONC 32.6 GM/DL 32.2-35.5 (BEAKER) (test code = 752) RED CELL DISTRIBUTION WIDTH 16.1 % 11.7-14.4 H (BEAKER) (test code = 412) PLATELET COUNT (BEAKER) (test 408 K/CU MM 150-450 code = 756) MEAN PLATELET VOLUME (BEAKER) 12.3 fL 9.4-12.3 (test code = 754) NUCLEATED RED BLOOD CELLS 0 /100 WBC 0-0 (BEAKER) (test code = 413) (CELLAVISION MANUAL DIFF)2019-06-14 08:06:00 Test Item Value Reference Range Interpretation Comments NEUTROPHILS - REL 78 % (CELLAVISION)(BEAKER) (test code = 2816) LYMPHOCYTES - REL 6 % (CELLAVISION)(BEAKER) (test code = 2817) MONOCYTES - REL 5 % (CELLAVISION)(BEAKER) (test code = 2818) METAMYELOCYTES - REL 6 % 0-0 H (CELLAVISION)(BEAKER) (test code = 2821) MYELOCYTES - REL 1 % 0-0 H (CELLAVISION)(BEAKER) (test code = 2822) PROMYELOCYTES - REL 1 % 0-0 H (CELLAVSION)(BEAKER) (test code = 2825) BANDS - REL (CELLAVISION)(BEAKER) 2 % 0-10 (test code = 2826) ATYPICAL LYMPHOCYTES - REL 1 % 0-0 H (CELLAVISION)(BEAKER) (test code = 2829) NEUTROPHILS - ABS 17.63 K/ul 1.56-6.13 H (CELLAVISION)(BEAKER) (test code = 2830) LYMPHOCYTES - ABS 1.36 K/ul 1.18-3.74 (CELLAVISION)(BEAKER) (test code = 2831) MONOCYTES - ABS 1.13 K/uL 0.24-0.36 H (CELLAVISION)(BEAKER) (test code = 2832) METAMYELOCYTES - ABS 1.36 K/uL 0.00-0.00 H (CELLAVISION)(BEAKER) (test code = 2836) MYELOCYTES-ABS 0.23 K/uL 0.00-0.00 H (CELLAVISION)(BEAKER) (test code = 2837) PROMYELOCYTES - ABS 0.23 K/uL 0.00-0.00 H (CELLAVISION)(BEAKER) (test code = 2838) BANDS - ABS (CELLAVISION)(BEAKER) 0.45 K/uL 0.00-0.80 (test code = 2840) ATYPICAL LYMPHOCYTES - ABS 0.23 K/uL 0.00-0.00 H (CELLAVISION)(BEAKER) (test code = 2858) TOTAL COUNTED (BEAKER) (test code 100 = 1351) SMUDGE CELLS (BEAKER) (test code Present = 1371) GIANT PLATELETS (BEAKER) (test Present code = 313) POLYCHROMATOPHILLIC RBCS(BEAKER) 1+ few (test code = 478) ANISOCYTOSIS (BEAKER) (test code 1+ few = 961) POIKILOCYTES (BEAKER) (test code 2+ moderate = 966) CHOLO CELLS (BEAKER) (test code = 1+ few 474) PLATELET CONCENTRATION Adequate (CELLAVISION)(BEAKER) (test code = 3438) Document Coordinator ID - Gaby Ashley comments: Slide comments:[id number] 05:45:00 Test Item Value Reference Range Interpretation Comments PREALBUMIN (BEAKER) (test code = 14 mg/dL 1445 586) Document Coordinator ID - YOSSI [id number] 05:41:00 Test Item Value Reference Range Interpretation Comments TRIGLYCERIDES (BEAKER) (test code = 75 mg/dL 540) TRIGLYCERIDE REFERENCE RANGELow Risk <150Borderline Risk 150-199High Risk 200-499Very High Risk>=500Operator ID - YOSSI [id number] 05:41:00 Test Item Value Reference Range Interpretation Comments MAGNESIUM (BEAKER) (test code = 2.4 mg/dL 1.6-2.6 627) Document Coordinator ID - YOSSI [id number] 05:41:00 Test Item Value Reference Range Interpretation Comments PHOSPHORUS (BEAKER) (test code = 2.6 mg/dL 2.3-4.7 604) Document Coordinator ID - YOSSI MBASIC METABOLIC [id number] 05:41:00 Test Item Value Reference Range Interpretation Comments SODIUM (BEAKER) 133 meq/L 136-145 L (test code = 381) POTASSIUM (BEAKER) 3.5 meq/L 3.5-5.1 (test code = 379) CHLORIDE (BEAKER) 102 meq/L 98-107 (test code = 382) CO2 (BEAKER) (test 21 meq/L 22-29 L code = 355) BLOOD UREA NITROGEN 53 mg/dL 7-21 H (BEAKER) (test code = 354) CREATININE (BEAKER) 0.78 mg/dL 0.57-1.25 (test code = 358) GLUCOSE RANDOM 152 mg/dL 70-105 H (BEAKER) (test code = 652) CALCIUM (BEAKER) 8.6 mg/dL 8.4-10.2 (test code = 697) EGFR (BEAKER) (test 70 mL/min/1.73 ESTIMA BLANCA GFR IS code = 1092) sq m NOT ACCURATE CREATININE CLEARANCE IN PREDICTING GLOMERULAR FILTRATION RATE . ESTIMATED GFR I S NOT APPLICABLE FOR DIALYSIS PATIEN TS. Document Coordinator ID - YOSSI MHEPATIC FUNCTION [id number] 05:41:00 Test Item Value Reference Range Interpretation Comments TOTAL PROTEIN (BEAKER) (test code = 4.7 gm/dL 6.0-8.3 L 770) ALBUMIN (BEAKER) (test code = 1145) 2.1 g/dL 3.5-5.0 L BILIRUBIN TOTAL (BEAKER) (test code 0.5 mg/dL 0.2-1.2 = 377) BILIRUBIN DIRECT (BEAKER) (test 0.2 mg/dL 0.1-0.5 code = 706) ALKALINE PHOSPHATASE (BEAKER) (test 130 U/L 40-150 code = 346) AST (SGOT) (BEAKER) (test code = 26 U/L 5-34 353) ALT (SGPT) (BEAKER) (test code = 42 U/L 6-55 347) Document Coordinator ID - YOSSI MC-REACTIVE [id number] 05:41:00 Test Item Value Reference Range Interpretation Comments C-REACTIVE PROTEIN (BEAKER) (test 9.67 mg/dL 0.00-0.50 H code = 676) Document Coordinator ID - YOSSI [id number] 05:26:00 Test Item Value Reference Range Interpretation Comments PROTIME (BEAKER) (test code = 14.8 seconds 11.9-14.2 H 759) INR (BEAKER) (test code = 370) 1.2 <=5.9 PARTIAL THROMBOPLASTIN TIME 32.8 seconds 22.5-36.0 (BEAKER) (test code = 760) Effective 08/27/2018: PT Reference Range ChangeNew: 11.9-14.2 Previous: 11.7- 14.7RECOMMENDED COUMADIN/WARFARIN INR THERAPY RANGESSTANDARD DOSE: 2.0-3.0 Includes: PROPHYLAXIS for venous thrombosis, systemic embolization; TREATMENT for venous thrombosis and/or pulmonary embolus.HIGH RISK: Target INR is2.5-3.5 for patients wiht mechanical heart valves.VANCOMYCIN LEVEL, [id number] 23:10:00 Test Item Value Reference Range Interpretation Comments VANCOMYCIN TROUGH (BEAKER) (test 30.2 ug/mL 10.0-20.0 HH code = 522) Document Coordinator ID - JORDYN EPOCT-GLUCOSE [id number] 18:33:00 Test Item Value Reference Range Interpretation Comments POC-GLUCOSE METER 171 mg/dL 70-110 H : [facility] (BEAKER) (test code = [place], 1538) 12021: Document Coordinator/Techni sharla ID = [id number] for Georgia Mejia POCT-GLUCOSE [id number] 12:56:00 Test Item Value Reference Range Interpretation Comments POC-GLUCOSE METER 163 mg/dL 70-110 H : TESTED A T [facility] 6720 (BEAKER) (test code = [place], 1538) 493[address]: Document Coordinator/Techni sharla ID = [id number] for Georgia Mejia CBC W/PLT COUNT & AUTO [id number] 09:40:00 Test Item Value Reference Range Interpretation Comments WHITE BLOOD CELL COUNT (BEAKER) 22.5 K/ L 3.5-10.5 H (test code = 775) RED BLOOD CELL COUNT (BEAKER) 3.31 M/ L 3.93-5.22 L (test code = 761) HEMOGLOBIN (BEAKER) (test code = 9.5 GM/DL 11.2-15.7 L 410) HEMATOCRIT (BEAKER) (test code = 29.1 % 34.1-44.9 L 411) MEAN CORPUSCULAR VOLUME (BEAKER) 87.9 fL 79.4-94.8 (test code = 753) MEAN CORPUSCULAR HEMOGLOBIN 28.7 pg 25.6-32.2 (BEAKER) (test code = 751) MEAN CORPUSCULAR HEMOGLOBIN CONC 32.6 GM/DL 32.2-35.5 (BEAKER) (test code = 752) RED CELL DISTRIBUTION WIDTH 16.1 % 11.7-14.4 H (BEAKER) (test code = 412) PLATELET COUNT (BEAKER) (test 428 K/CU MM 150-450 code = 756) MEAN PLATELET VOLUME (BEAKER) 12.0 fL 9.4-12.3 (test code = 754) NUCLEATED RED BLOOD CELLS 0 /100 WBC 0-0 (BEAKER) (test code = 413) (CELLAVISION MANUAL DIFF)2019-06-13 09:40:00 Test Item Value Reference Range Interpretation Comments NEUTROPHILS - REL 81 % (CELLAVISION)(BEAKER) (test code = 2816) LYMPHOCYTES - REL 2 % (CELLAVISION)(BEAKER) (test code = 2817) MONOCYTES - REL 5 % (CELLAVISION)(BEAKER) (test code = 2818) EOSINOPHILS - REL 1 % (CELLAVISION)(BEAKER) (test code = 2819) METAMYELOCYTES - REL 5 % 0-0 H (CELLAVISION)(BEAKER) (test code = 2821) MYELOCYTES - REL 3 % 0-0 H (CELLAVISION)(BEAKER) (test code = 2822) BANDS - REL (CELLAVISION)(BEAKER) 2 % 0-10 (test code = 2826) ATYPICAL LYMPHOCYTES - REL 1 % 0-0 H (CELLAVISION)(BEAKER) (test code = 2829) NEUTROPHILS - ABS 18.23 K/ul 1.56-6.13 H (CELLAVISION)(BEAKER) (test code = 2830) LYMPHOCYTES - ABS 0.45 K/ul 1.18-3.74 L (CELLAVISION)(BEAKER) (test code = 2831) MONOCYTES - ABS 1.13 K/uL 0.24-0.36 H (CELLAVISION)(BEAKER) (test code = 2832) EOSINOPHILS - ABS 0.23 K/uL 0.04-0.36 (CELLAVISION)(BEAKER) (test code = 2834) METAMYELOCYTES - ABS 1.13 K/uL 0.00-0.00 H (CELLAVISION)(BEAKER) (test code = 2836) MYELOCYTES-ABS 0.68 K/uL 0.00-0.00 H (CELLAVISION)(BEAKER) (test code = 2837) BANDS - ABS (CELLAVISION)(BEAKER) 0.45 K/uL 0.00-0.80 (test code = 2840) ATYPICAL LYMPHOCYTES - ABS 0.23 K/uL 0.00-0.00 H (CELLAVISION)(BEAKER) (test code = 7348) TOTAL COUNTED (BEAKER) (test code 100 = 1351) PLT MORPHOLOGY (BEAKER) (test code Normal = 486) TOXIC GRANULATION (BEAKER) (test Present code = 771) POLYCHROMATOPHILLIC RBCS(BEAKER) 1+ few (test code = 478) ANISOCYTOSIS (BEAKER) (test code = 1+ few 961) ARTIFACT (CELLAVISION)(BEAKER) Present (test code = 3432) PLATELET CONCENTRATION Adequate (CELLAVISION)(BEAKER) (test code = 3438) Document Coordinator ID - Yanet Huertas comments: Slide comments:POCT-GLUCOSE [id number] 07:07:00 Test Item Value Reference Range Interpretation Comments POC-GLUCOSE METER 162 mg/dL 70-110 H : TESTED A T [facility] 6720 (BEAKER) (test code = [place], 1538) [address]: Document Coordinator/Techni sharla ID = [id number] for MIRIAM SINGH [id number] 05:35:00 Test Item Value Reference Range Interpretation Comments PHOSPHORUS (BEAKER) (test code = 2.5 mg/dL 2.3-4.7 604) Document Coordinator ID - YOSSI [id number] 05:35:00 Test Item Value Reference Range Interpretation Comments MAGNESIUM (BEAKER) (test code = 2.0 mg/dL 1.6-2.6 627) Document Coordinator ID - YOSSI MBASIC METABOLIC [id number] 05:35:00 Test Item Value Reference Range Interpretation Comments SODIUM (BEAKER) 135 meq/L 136-145 L (test code = 381) POTASSIUM (BEAKER) 3.6 meq/L 3.5-5.1 (test code = 379) CHLORIDE (BEAKER) 107 meq/L 98-107 (test code = 382) CO2 (BEAKER) (test 20 meq/L 22-29 L code = 355) BLOOD UREA NITROGEN 52 mg/dL 7-21 H (BEAKER) (test code = 354) CREATININE (BEAKER) 0.79 mg/dL 0.57-1.25 (test code = 358) GLUCOSE RANDOM 165 mg/dL 70-105 H (BEAKER) (test code = 652) CALCIUM (BEAKER) 8.4 mg/dL 8.4-10.2 (test code = 697) EGFR (BEAKER) (test 69 mL/min/1.73 ESTIMA BLANCA GFR IS code = 1092) sq m NOT ACCURATE CREATININE CLEARANCE IN PREDICTING GLOMERULAR FILTRATION RATE . ESTIMATED GFR I S NOT APPLICABLE FOR DIALYSIS PATIEN TS. Document Coordinator ID - YOSSI [id number] 05:32:00 Test Item Value Reference Range Interpretation Comments PROTIME (BEAKER) (test code = 14.9 seconds 11.9-14.2 H 759) INR (BEAKER) (test code = 370) 1.2 <=5.9 PARTIAL THROMBOPLASTIN TIME 30.6 seconds 22.5-36.0 (BEAKER) (test code = 760) Effective 08/27/2018: PT Reference Range ChangeNew: 11.9-14.2 Previous: 11.7- 14.7RECOMMENDED COUMADIN/WARFARIN INR THERAPY RANGESSTANDARD DOSE: 2.0-3.0 Includes: PROPHYLAXIS for venous thrombosis, systemic embolization; TREATMENT for venous thrombosis and/or pulmonary embolus.HIGH RISK: Target INR is2.5-3.5 for patients wiht mechanical heart valves.POCT-GLUCOSE [id number] 23:54:00 Test Item Value Reference Range Interpretation Comments POC-GLUCOSE METER 175 mg/dL 70-110 H : TESTED A T [facility] 6720 (BEAKER) (test code = [facility], 1538) [address]: Document Coordinator/Techni sharla ID = [id number] for [place] MIRIAM ZAMAN POCT-GLUCOSE [id number] 18:25:00 Test Item Value Reference Range Interpretation Comments POC-GLUCOSE METER 182 mg/dL 70-110 H : TESTED A T [facility] 6720 (BEAKER) (test code = [facility], 1538) 27980: Document Coordinator/Techni sharla ID = [id number] for RA MOS, LAKEISHA POCT-GLUCOSE [id number] 13:26:00 Test Item Value Reference Range Interpretation Comments POC-GLUCOSE METER 176 mg/dL 70-110 H : TESTED A T [facility] 6720 (BEAKER) (test code = [facility], 1538) 43674: Document Coordinator/Techni sharla ID = [id number] for FE LDER, BEN CBC W/PLT COUNT & AUTO [id number] 12:41:00 Test Item Value Reference Range Interpretation Comments WHITE BLOOD CELL COUNT (BEAKER) 23.4 K/ L 3.5-10.5 H (test code = 775) RED BLOOD CELL COUNT (BEAKER) 2.33 M/ L 3.93-5.22 L (test code = 761) HEMOGLOBIN (BEAKER) (test code = 6.7 GM/DL 11.2-15.7 L 410) HEMATOCRIT (BEAKER) (test code = 21.3 % 34.1-44.9 L 411) MEAN CORPUSCULAR VOLUME (BEAKER) 91.4 fL 79.4-94.8 (test code = 753) MEAN CORPUSCULAR HEMOGLOBIN 28.8 pg 25.6-32.2 (BEAKER) (test code = 751) MEAN CORPUSCULAR HEMOGLOBIN CONC 31.5 GM/DL 32.2-35.5 L (BEAKER) (test code = 752) RED CELL DISTRIBUTION WIDTH 17.1 % 11.7-14.4 H (BEAKER) (test code = 412) PLATELET COUNT (BEAKER) (test 401 K/CU MM 150-450 code = 756) MEAN PLATELET VOLUME (BEAKER) 12.2 fL 9.4-12.3 (test code = 754) NUCLEATED RED BLOOD CELLS 0 /100 WBC 0-0 (BEAKER) (test code = 413) (CELLAVISION MANUAL DIFF)2019-06-12 12:41:00 Test Item Value Reference Range Interpretation Comments NEUTROPHILS - REL 80 % (CELLAVISION)(BEAKER) (test code = 2816) LYMPHOCYTES - REL 2 % (CELLAVISION)(BEAKER) (test code = 2817) MONOCYTES - REL 7 % (CELLAVISION)(BEAKER) (test code = 2818) EOSINOPHILS - REL 1 % (CELLAVISION)(BEAKER) (test code = 2819) METAMYELOCYTES - REL 2 % 0-0 H (CELLAVISION)(BEAKER) (test code = 2821) MYELOCYTES - REL 6 % 0-0 H (CELLAVISION)(BEAKER) (test code = 2822) BANDS - REL (CELLAVISION)(BEAKER) 2 % 0-10 (test code = 2826) NEUTROPHILS - ABS 18.72 K/ul 1.56-6.13 H (CELLAVISION)(BEAKER) (test code = 2830) LYMPHOCYTES - ABS 0.47 K/ul 1.18-3.74 L (CELLAVISION)(BEAKER) (test code = 2831) MONOCYTES - ABS 1.64 K/uL 0.24-0.36 H (CELLAVISION)(BEAKER) (test code = 2832) EOSINOPHILS - ABS 0.23 K/uL 0.04-0.36 (CELLAVISION)(BEAKER) (test code = 2834) METAMYELOCYTES - ABS 0.47 K/uL 0.00-0.00 H (CELLAVISION)(BEAKER) (test code = 2836) MYELOCYTES-ABS 1.40 K/uL 0.00-0.00 H (CELLAVISION)(BEAKER) (test code = 2837) BANDS - ABS (CELLAVISION)(BEAKER) 0.47 K/uL 0.00-0.80 (test code = 2840) TOTAL COUNTED (BEAKER) (test code 100 = 1351) RBC MORPHOLOGY (BEAKER) (test code Normal = 762) SMUDGE CELLS (BEAKER) (test code = Present 1371) GIANT PLATELETS (BEAKER) (test Present code = 313) ARTIFACT (CELLAVISION)(BEAKER) Present (test code = 3432) PLATELET CONCENTRATION Adequate (CELLAVISION)(BEAKER) (test code = 3438) Document Coordinator ID - Gaby Ashley comments: Slide comments:[id number] 06:07:00 Test Item Value Reference Range Interpretation Comments PHOSPHORUS (BEAKER) (test code = 3.1 mg/dL 2.3-4.7 604) Document Coordinator ID - YOSSI [id number] 06:07:00 Test Item Value Reference Range Interpretation Comments MAGNESIUM (BEAKER) (test code = 2.3 mg/dL 1.6-2.6 627) Document Coordinator ID - YOSSI MBASIC METABOLIC [id number] 06:07:00 Test Item Value Reference Range Interpretation Comments SODIUM (BEAKER) 136 meq/L 136-145 (test code = 381) POTASSIUM (BEAKER) 4.0 meq/L 3.5-5.1 (test code = 379) CHLORIDE (BEAKER) 108 meq/L 98-107 H (test code = 382) CO2 (BEAKER) (test 21 meq/L 22-29 L code = 355) BLOOD UREA NITROGEN 55 mg/dL 7-21 H (BEAKER) (test code = 354) CREATININE (BEAKER) 0.88 mg/dL 0.57-1.25 (test code = 358) GLUCOSE RANDOM 193 mg/dL 70-105 H (BEAKER) (test code = 652) CALCIUM (BEAKER) 8.2 mg/dL 8.4-10.2 L (test code = 697) EGFR (BEAKER) (test 61 mL/min/1.73 ESTIMA BLANCA GFR IS code = 1092) sq m NOT ACCURATE CREATININE CLEARANCE IN PREDICTING GLOMERULAR FILTRATION RATE . ESTIMATED GFR I S NOT APPLICABLE FOR DIALYSIS PATIEN TS. Document Coordinator ID - YOSSI MPT/[id number] 05:57:00 Test Item Value Reference Range Interpretation Comments PROTIME (BEAKER) (test code = 15.2 seconds 11.9-14.2 H 759) INR (BEAKER) (test code = 370) 1.2 <=5.9 PARTIAL THROMBOPLASTIN TIME 31.6 seconds 22.5-36.0 (BEAKER) (test code = 760) Effective 08/27/2018: PT Reference Range ChangeNew: 11.9-14.2 Previous: 11.7- 14.7RECOMMENDED COUMADIN/WARFARIN INR THERAPY RANGESSTANDARD DOSE: 2.0-3.0 Includes: PROPHYLAXIS for venous thrombosis, systemic embolization; TREATMENT for venous thrombosis and/or pulmonary embolus.HIGH RISK: Target INR is2.5-3.5 for patients wiht mechanical heart valves.POCT-GLUCOSE [id number] 05:04:00 Test Item Value Reference Range Interpretation Comments POC-GLUCOSE METER 178 mg/dL 70-110 H : TESTED A T [facility] 6720 (Shoutly) (test code = [employer] [facility], 1538) 86575: Document Coordinator/Techni sharla ID = [id number] for JABIER KAISER POCT-GLUCOSE [id number] 00:19:00 Test Item Value Reference Range Interpretation Comments POC-GLUCOSE METER 197 mg/dL 70-110 H : TESTED A T [facility] 6720 (Shoutly) (test code = [employer] [facility], 1538) 00013: Document Coordinator/Techni shalra ID = [id number] for CHRIS KAISERA CT, DRAINAGE W/ CATH [id number] 20:01:00Please send fluid for cultures and drain amylase (ordered). Thank you!Reason for exam:->peripancreatic fluid collectionAnesthesia:->NoneFINAL REPORT CT- guided drainage catheter placement dated 06/11/2019 Name of practitioner performing procedure:Daphne Alford M.D. Names of multimedia assistant:None Procedure: Drainage catheter placement into the peripancreatic [...] was dilated with a 6 and 8 Kazakh dilators. An 8 Kazakh drainage catheter was placed. This catheter was left in place, secured skin with suture, and connected to bulb suction. Impression: Successful CT-guided drainage placement into the mid abdominal peripancreatic pseudocyst. Signed: Daphne Alford [facility] Verified Date/Time: 06/11/2019 20:01:30 Reading Location: [facility] C013Y CT Body Reading Room AMYLASE, BODY [id number] 18:57:00 Test Item Value Reference Range Interpretation Comments AMYLASE FLUID (BEAKER) (test code = > U/L 350) Absence of reference range indicates that normals have not been defined.Assay performance has not been validated for this type of specimen.POCT-GLUCOSE METER 2019-06-11 12:40:00 Test Item Value Reference Range Interpretation Comments POC-GLUCOSE METER 197 mg/dL 70-110 H : TESTED A T [facility] 6720 (BEAKER) (test code = [facility] [place], 1538) 79410: Document Coordinator/Techni sharla ID = [id number] for FE LDER, BEN CBC W/PLT COUNT & AUTO [id number] 10:41:00 Test Item Value Reference Range Interpretation Comments WHITE BLOOD CELL COUNT (BEAKER) 28.7 K/ L 3.5-10.5 H (test code = 775) RED BLOOD CELL COUNT (BEAKER) 2.51 M/ L 3.93-5.22 L (test code = 761) HEMOGLOBIN (BEAKER) (test code = 7.1 GM/DL 11.2-15.7 L 410) HEMATOCRIT (BEAKER) (test code = 22.8 % 34.1-44.9 L 411) MEAN CORPUSCULAR VOLUME (BEAKER) 90.8 fL 79.4-94.8 (test code = 753) MEAN CORPUSCULAR HEMOGLOBIN 28.3 pg 25.6-32.2 (BEAKER) (test code = 751) MEAN CORPUSCULAR HEMOGLOBIN CONC 31.1 GM/DL 32.2-35.5 L (BEAKER) (test code = 752) RED CELL DISTRIBUTION WIDTH 17.2 % 11.7-14.4 H (BEAKER) (test code = 412) PLATELET COUNT (BEAKER) (test 445 K/CU MM 150-450 code = 756) MEAN PLATELET VOLUME (BEAKER) 11.7 fL 9.4-12.3 (test code = 754) NUCLEATED RED BLOOD CELLS 0 /100 WBC 0-0 (BEAKER) (test code = 413) (CELLAVISION MANUAL DIFF)2019-06-11 10:41:00 Test Item Value Reference Range Interpretation Comments NEUTROPHILS - REL 78 % (CELLAVISION)(BEAKER) (test code = 2816) LYMPHOCYTES - REL 3 % (CELLAVISION)(BEAKER) (test code = 2817) MONOCYTES - REL 8 % (CELLAVISION)(BEAKER) (test code = 2818) METAMYELOCYTES - REL 3 % 0-0 H (CELLAVISION)(BEAKER) (test code = 2821) MYELOCYTES - REL 4 % 0-0 H (CELLAVISION)(BEAKER) (test code = 2822) PROMYELOCYTES - REL 1 % 0-0 H (CELLAVSION)(BEAKER) (test code = 2825) BANDS - REL (CELLAVISION)(BEAKER) 3 % 0-10 (test code = 2826) NEUTROPHILS - ABS 22.39 K/ul 1.56-6.13 H (CELLAVISION)(BEAKER) (test code = 2830) LYMPHOCYTES - ABS 0.86 K/ul 1.18-3.74 L (CELLAVISION)(BEAKER) (test code = 2831) MONOCYTES - ABS 2.30 K/uL 0.24-0.36 H (CELLAVISION)(BEAKER) (test code = 2832) METAMYELOCYTES - ABS 0.86 K/uL 0.00-0.00 H (CELLAVISION)(BEAKER) (test code = 2836) MYELOCYTES-ABS 1.15 K/uL 0.00-0.00 H (CELLAVISION)(BEAKER) (test code = 2837) PROMYELOCYTES - ABS 0.29 K/uL 0.00-0.00 H (CELLAVISION)(BEAKER) (test code = 2838) BANDS - ABS (CELLAVISION)(BEAKER) 0.86 K/uL 0.00-0.80 H (test code = 2840) TOTAL COUNTED (BEAKER) (test code 100 = 1351) PLT MORPHOLOGY (BEAKER) (test code Normal = 486) TOXIC GRANULATION (BEAKER) (test Present code = 771) HYPOCHROMIA (BEAKER) (test code = 1+ few 963) ANISOCYTOSIS (BEAKER) (test code = 1+ few 961) ARTIFACT (CELLAVISION)(BEAKER) Present (test code = 3432) PLATELET CONCENTRATION Adequate (CELLAVISION)(BEAKER) (test code = 3438) Document Coordinator ID - Yanet Huertas comments: Slide comments:[id number] 06:38:00 Test Item Value Reference Range Interpretation Comments PHOSPHORUS (BEAKER) (test code = 3.2 mg/dL 2.3-4.7 604) Document Coordinator ID - AVERY [id number] 06:38:00 Test Item Value Reference Range Interpretation Comments MAGNESIUM (BEAKER) (test code = 2.3 mg/dL 1.6-2.6 627) Document Coordinator ID - AVERY WBASIC METABOLIC [id number] 06:38:00 Test Item Value Reference Range Interpretation Comments SODIUM (BEAKER) 137 meq/L 136-145 (test code = 381) POTASSIUM (BEAKER) 4.4 meq/L 3.5-5.1 (test code = 379) CHLORIDE (BEAKER) 108 meq/L 98-107 H (test code = 382) CO2 (BEAKER) (test 19 meq/L 22-29 L code = 355) BLOOD UREA NITROGEN 53 mg/dL 7-21 H (BEAKER) (test code = 354) CREATININE (BEAKER) 0.95 mg/dL 0.57-1.25 (test code = 358) GLUCOSE RANDOM 182 mg/dL 70-105 H (BEAKER) (test code = 652) CALCIUM (BEAKER) 8.3 mg/dL 8.4-10.2 L (test code = 697) EGFR (BEAKER) (test 56 mL/min/1.73 ESTIMA BLANCA GFR IS code = 1092) sq m NOT ACCURATE CREATININE CLEARANCE IN PREDICTING GLOMERULAR FILTRATION RATE . ESTIMATED GFR I S NOT APPLICABLE FOR DIALYSIS PATIEN TS. Document Coordinator ID - AVERY WPOCT-GLUCOSE [id number] 05:47:00 Test Item Value Reference Range Interpretation Comments POC-GLUCOSE METER 177 mg/dL 70-110 H : TESTED A T [facility] 6720 (BEAKER) (test code = [facility] [place], 1538) 61113: Document Coordinator/Techni sharla ID = [id number] for JABIER KAISER PT/[id number] 05:14:00 Test Item Value Reference Range Interpretation Comments PROTIME (BEAKER) (test code = 16.4 seconds 11.9-14.2 H 759) INR (BEAKER) (test code = 370) 1.4 <=5.9 PARTIAL THROMBOPLASTIN TIME 31.7 seconds 22.5-36.0 (BEAKER) (test code = 760) Effective 08/27/2018: PT Reference Range ChangeNew: 11.9-14.2 Previous: 11.7- 14.7RECOMMENDED COUMADIN/WARFARIN INR THERAPY RANGESSTANDARD DOSE: 2.0-3.0 Includes: PROPHYLAXIS for venous thrombosis, systemic embolization; TREATMENT for venous thrombosis and/or pulmonary embolus.HIGH RISK: Target INR is2.5-3.5 for patients wiht mechanical heart valves.POCT-GLUCOSE [id number] 23:51:00 Test Item Value Reference Range Interpretation Comments POC-GLUCOSE METER 185 mg/dL 70-110 H : TESTED Carlos [place] [facility] 6720 (AFIA) (test code = [facility] [place], 1538) 19654: Document Coordinator/Techni sharla ID = [id number] for JABIER KAISER CT, [id number] 21:27:00PO contrast pleaseFINAL REPORT TECHNIQUE: CT of [...] pleural effusions with bilateral atelectasis. Signed: Brenda Menendez MDReportVerified Date/Time: 06/10/2019 21:27:15 Reading Location: [address] Consult Reading Room Zohra ctronically signed by: BRENDA MENENDEZ MD on 06/10/2019 09:27 PMBASI METABOLIC [id number] 21:01:00 Test Item Value Reference Range Interpretation Comments SODIUM (BEAKER) 137 meq/L 136-145 (test code = 381) POTASSIUM (BEAKER) 4.7 meq/L 3.5-5.1 (test code = 379) CHLORIDE (BEAKER) 107 meq/L 98-107 (test code = 382) CO2 (BEAKER) (test 25 meq/L 22-29 code = 355) BLOOD UREA NITROGEN 53 mg/dL 7-21 H (BEAKER) (test code = 354) CREATININE (BEAKER) 0.98 mg/dL 0.57-1.25 (test code = 358) GLUCOSE RANDOM 191 mg/dL 70-105 H (BEAKER) (test code = 652) CALCIUM (BEAKER) 8.2 mg/dL 8.4-10.2 L (test code = 697) EGFR (BEAKER) (test 54 mL/min/1.73 ESTIMA BLANCA GFR IS code = 1092) sq m NOT ACCURATE CREATININE CLEARANCE IN PREDICTING GLOMERULAR FILTRATION RATE . ESTIMATED GFR I S NOT APPLICABLE FOR DIALYSIS PATIEN TS. Document Coordinator ID - DBPROTHROMBIN TIME/[id number] 20:49:00 Test Item Value Reference Range Interpretation Comments PROTIME (BEAKER) (test code = 17.0 seconds 11.9-14.2 H 759) INR (BEAKER) (test code = 370) 1.4 <=5.9 Effective 08/27/2018: PT Reference Range ChangeNew: 11.9-14.2 Previous: 11.7- 14.7RECOMMENDED COUMADIN/WARFARIN INR THERAPY RANGESSTANDARD DOSE: 2.0-3.0 Includes: PROPHYLAXIS for venous thrombosis, systemic embolization; TREATMENT for venous thrombosis and/or pulmonary embolus.HIGH RISK: Target INR is2.5-3.5 for patients wiht mechanical heart valves.POCT-GLUCOSE [id number] 17:30:00 Test Item Value Reference Range Interpretation Comments POC-GLUCOSE METER 158 mg/dL 70-110 H : TESTED A T [facility] 6720 (BEAKER) (test code = [facility] [place], 1538) 72016: Document Coordinator/Techni sharla ID = [id number] for WINSTON RAYMUNDO BASIC METABOLIC [id number] 12:29:00 Test Item Value Reference Range Interpretation Comments SODIUM (BEAKER) 139 meq/L 136-145 (test code = 381) POTASSIUM (BEAKER) 4.8 meq/L 3.5-5.1 Specimen slightly (test code = 379) hemolyzed CHLORIDE (BEAKER) 108 meq/L 98-107 H (test code = 382) CO2 (BEAKER) (test 24 meq/L 22-29 code = 355) BLOOD UREA NITROGEN 52 mg/dL 7-21 H (BEAKER) (test code = 354) CREATININE (BEAKER) 1.03 mg/dL 0.57-1.25 Specimen slightly (test code = 358) hemolyzed GLUCOSE RANDOM 199 mg/dL 70-105 H (BEAKER) (test code = 652) CALCIUM (BEAKER) 8.1 mg/dL 8.4-10.2 L (test code = 697) EGFR (BEAKER) (test 51 mL/min/1.73 ESTIMA BLANCA GFR IS code = 1092) sq m NOT ACCURATE CREATININE CLEARANCE IN PREDICTING GLOMERULAR FILTRATION RATE . ESTIMATED GFR I S NOT APPLICABLE FOR DIALYSIS GIOVANY TS. Document Coordinator ID - YOSSI MPOCT-GLUCOSE [id number] 10:57:00 Test Item Value Reference Range Interpretation Comments POC-GLUCOSE METER 233 mg/dL 70-110 H : TESTED A T [facility] 6720 (BEAKER) (test code = [facility] [place], 1538) 15054: Document Coordinator/Techni sharla ID = [id number] for WINSTON RAYMUNDO CBC W/PLT COUNT & AUTO [id number] 08:38:00 Test Item Value Reference Range Interpretation Comments WHITE BLOOD CELL COUNT (BEAKER) 28.5 K/ L 3.5-10.5 H (test code = 775) RED BLOOD CELL COUNT (BEAKER) 2.64 M/ L 3.93-5.22 L (test code = 761) HEMOGLOBIN (BEAKER) (test code = 7.7 GM/DL 11.2-15.7 L 410) HEMATOCRIT (BEAKER) (test code = 23.4 % 34.1-44.9 L 411) MEAN CORPUSCULAR VOLUME (BEAKER) 88.6 fL 79.4-94.8 (test code = 753) MEAN CORPUSCULAR HEMOGLOBIN 29.2 pg 25.6-32.2 (BEAKER) (test code = 751) MEAN CORPUSCULAR HEMOGLOBIN CONC 32.9 GM/DL 32.2-35.5 (BEAKER) (test code = 752) RED CELL DISTRIBUTION WIDTH 17.4 % 11.7-14.4 H (BEAKER) (test code = 412) PLATELET COUNT (BEAKER) (test 430 K/CU MM 150-450 code = 756) MEAN PLATELET VOLUME (BEAKER) 11.7 fL 9.4-12.3 (test code = 754) NUCLEATED RED BLOOD CELLS 0 /100 WBC 0-0 (BEAKER) (test code = 413) (CELLAVISION MANUAL DIFF)2019-06-10 08:38:00 Test Item Value Reference Range Interpretation Comments NEUTROPHILS - REL 80 % (CELLAVISION)(BEAKER) (test code = 2816) LYMPHOCYTES - REL 3 % (CELLAVISION)(BEAKER) (test code = 2817) MONOCYTES - REL 6 % (CELLAVISION)(BEAKER) (test code = 2818) METAMYELOCYTES - REL 2 % 0-0 H (CELLAVISION)(BEAKER) (test code = 2821) MYELOCYTES - REL 3 % 0-0 H (CELLAVISION)(BEAKER) (test code = 2822) PROMYELOCYTES - REL 1 % 0-0 H (CELLAVSION)(BEAKER) (test code = 2825) BANDS - REL (CELLAVISION)(BEAKER) 3 % 0-10 (test code = 2826) ATYPICAL LYMPHOCYTES - REL 2 % 0-0 H (CELLAVISION)(BEAKER) (test code = 2829) NEUTROPHILS - ABS 22.80 K/ul 1.56-6.13 H (CELLAVISION)(BEAKER) (test code = 2830) LYMPHOCYTES - ABS 0.86 K/ul 1.18-3.74 L (CELLAVISION)(BEAKER) (test code = 2831) MONOCYTES - ABS 1.71 K/uL 0.24-0.36 H (CELLAVISION)(BEAKER) (test code = 2832) METAMYELOCYTES - ABS 0.57 K/uL 0.00-0.00 H (CELLAVISION)(BEAKER) (test code = 2836) MYELOCYTES-ABS 0.86 K/uL 0.00-0.00 H (CELLAVISION)(BEAKER) (test code = 2837) PROMYELOCYTES - ABS 0.29 K/uL 0.00-0.00 H (CELLAVISION)(BEAKER) (test code = 2838) BANDS - ABS (CELLAVISION)(BEAKER) 0.86 K/uL 0.00-0.80 H (test code = 2840) ATYPICAL LYMPHOCYTES - ABS 0.57 K/uL 0.00-0.00 H (CELLAVISION)(BEAKER) (test code = 2858) TOTAL COUNTED (BEAKER) (test code 100 = 1351) RBC MORPHOLOGY (BEAKER) (test code Normal = 762) WBC MORPHOLOGY (BEAKER) (test code Normal = 487) PLT MORPHOLOGY (BEAKER) (test code Normal = 486) ARTIFACT (CELLAVISION)(BEAKER) Present (test code = 3432) PLATELET CONCENTRATION Adequate (CELLAVISION)(BEAKER) (test code = 3438) Document Coordinator ID - Rosario OverholtUser comments: Slide comments:RAD, CHEST, 1 VIEW, NON [id number] 08:00:00Reason for exam:->evaluate for pulmonary edemaShould this [...] contours. Stable surgical changes.Additionalfindings: None. Signed: Belinda Castaneda Verified Date/Time: 06/10/2019 08:00:14 Reading Location: [facility] Radiology Reading Room POCT-GLUCOSE METER 2019-06-10 05:43:00 Test Item Value Reference Range Interpretation Comments POC-GLUCOSE METER 114 mg/dL 70-110 H : TESTED A T [facility] 6720 (BEAKER) (test code = CELINA Part[place] [facility], 1538) 70701: Document Coordinator/Techni sharla ID = [id number] for [place] GREEN [id number] 03:51:00 Test Item Value Reference Range Interpretation Comments PHOSPHORUS (BEAKER) (test code = 3.9 mg/dL 2.3-4.7 604) Document Coordinator ID - YOSSI [id number] 03:51:00 Test Item Value Reference Range Interpretation Comments MAGNESIUM (BEAKER) (test code = 2.2 mg/dL 1.6-2.6 627) Document Coordinator ID - YOSSI MBASIC METABOLIC [id number] 03:51:00 Test Item Value Reference Range Interpretation Comments SODIUM (BEAKER) 139 meq/L 136-145 (test code = 381) POTASSIUM (BEAKER) 4.8 meq/L 3.5-5.1 (test code = 379) CHLORIDE (BEAKER) 109 meq/L 98-107 H (test code = 382) CO2 (BEAKER) (test 24 meq/L 22-29 code = 355) BLOOD UREA NITROGEN 48 mg/dL 7-21 H (BEAKER) (test code = 354) CREATININE (BEAKER) 0.91 mg/dL 0.57-1.25 (test code = 358) GLUCOSE RANDOM 133 mg/dL 70-105 H (BEAKER) (test code = 652) CALCIUM (BEAKER) 8.3 mg/dL 8.4-10.2 L (test code = 697) EGFR (BEAKER) (test 59 mL/min/1.73 ESTIMA BLANCA GFR IS code = 1092) sq m NOT ACCURATE CREATININE CLEARANCE IN PREDICTING GLOMERULAR FILTRATION RATE . ESTIMATED GFR I S NOT APPLICABLE FOR DIALYSIS PATIEN TS. Document Coordinator ID - YOSSI MPT/[id number] 03:43:00 Test Item Value Reference Range Interpretation Comments PROTIME (BEAKER) (test code = 15.8 seconds 11.9-14.2 H 759) INR (BEAKER) (test code = 370) 1.3 <=5.9 PARTIAL THROMBOPLASTIN TIME 30.0 seconds 22.5-36.0 (BEAKER) (test code = 760) Effective 08/27/2018: PT Reference Range ChangeNew: 11.9-14.2 Previous: 11.7- 14.7RECOMMENDED COUMADIN/WARFARIN INR THERAPY RANGESSTANDARD DOSE: 2.0-3.0 Includes: PROPHYLAXIS for venous thrombosis, systemic embolization; TREATMENT for venous thrombosis and/or pulmonary embolus.HIGH RISK: Target INR is2.5-3.5 for patients wiht mechanical heart valves.POCT-GLUCOSE [id number] 02:42:00 Test Item Value Reference Range Interpretation Comments POC-GLUCOSE METER 177 mg/dL 70-110 H : TESTED A T [facility] 6720 (Shoutly) (test code = [facility], 1538) 78509: Document Coordinator/Techni sharla ID = [id number] for [place] GREEN POCT-GLUCOSE [id number] 00:56:00 Test Item Value Reference Range Interpretation Comments POC-GLUCOSE METER 130 mg/dL 70-110 H : TESTED A T [facility] 6720 (Shoutly) (test code = [facility], 1538) 27468: Document Coordinator/Techni sharla ID = [id number] for TRENT [place] BROOKS BASIC METABOLIC [id number] 22:14:00 Test Item Value Reference Range Interpretation Comments SODIUM (BEAKER) 139 meq/L 136-145 (test code = 381) POTASSIUM (BEAKER) 5.3 meq/L 3.5-5.1 H (test code = 379) CHLORIDE (BEAKER) 109 meq/L 98-107 H (test code = 382) CO2 (BEAKER) (test 23 meq/L 22-29 code = 355) BLOOD UREA NITROGEN 50 mg/dL 7-21 H (BEAKER) (test code = 354) CREATININE (BEAKER) 0.95 mg/dL 0.57-1.25 (test code = 358) GLUCOSE RANDOM 136 mg/dL 70-105 H (BEAKER) (test code = 652) CALCIUM (BEAKER) 8.0 mg/dL 8.4-10.2 L (test code = 697) EGFR (BEAKER) (test 56 mL/min/1.73 ESTIMA BLANCA GFR IS code = 1092) sq m NOT ACCURATE CREATININE CLEARANCE IN PREDICTING GLOMERULAR FILTRATION RATE . ESTIMATED GFR I S NOT APPLICABLE FOR DIALYSIS PATIEN TS. Document Coordinator ID - DBBLOOD [id number] 20:00:00 Test Item Value Reference Range Interpretation Comments CULTURE (BEAKER) (test No growth in 5 days code = 1095) BLOOD [id number] 20:00:00 Test Item Value Reference Range Interpretation Comments CULTURE (BEAKER) (test No growth in 5 days code = 1095) VANCOMYCIN LEVEL, [id number] 19:44:00 Test Item Value Reference Range Interpretation Comments VANCOMYCIN TROUGH (BEAKER) (test 11.6 ug/mL 10.0-20.0 code = 522) Document Coordinator ID - [id number] 18:57:00 Test Item Value Reference Range Interpretation Comments HAPTOGLOBIN (BEAKER) (test code = 421 mg/dL 14-258 H 366) Document Coordinator ID - DBPOCT-GLUCOSE [id number] 18:28:00 Test Item Value Reference Range Interpretation Comments POC-GLUCOSE METER 193 mg/dL 70-110 H : TESTED A T [facility] [id number] (BEAKER) (test code = CEL[place] JONES [place], 1538) [id number]: Document Coordinator/Techni sharla ID = [id number] for GE ORGE, TIMOTHY URINALYSIS W/ REFLEX URINE [id number] 17:28:00 Test Item Value Reference Range Interpretation Comments COLOR (BEAKER) (test code = 470) Light Yellow CLARITY (BEAKER) (test code = Clear 469) SPECIFIC GRAVITY UA (BEAKER) 1.011 1.001-1.035 (test code = 468) PH UA (BEAKER) (test code = 467) 6.5 5.0-8.0 PROTEIN UA (BEAKER) (test code = 50 mg/dL Negative A 464) GLUCOSE UA (BEAKER) (test code = 150 mg/dL Negative A 365) KETONES UA (BEAKER) (test code = Negative Negative 371) BILIRUBIN UA (BEAKER) (test code Negative Negative = 462) BLOOD UA (BEAKER) (test code = Small Negative A 461) NITRITE UA (BEAKER) (test code = Negative Negative 465) LEUKOCYTE ESTERASE UA (BEAKER) Negative Negative (test code = 466) UROBILINOGEN UA (BEAKER) (test 0.2 mg/dL 0.2-1.0 code = 463) RBC UA (BEAKER) (test code = 19 /HPF 519) WBC UA (BEAKER) (test code = 3 /HPF 520) SQUAMOUS EPITHELIAL (BEAKER) < /HPF (test code = 516) YEAST (BEAKER) (test code = Moderate 1585) SOURCE(BEAKER) (test code = 2134) Document Coordinator ID - [auto]Document Coordinator ID - techBASIC METABOLIC [id number] 16:34:00 Test Item Value Reference Range Interpretation Comments SODIUM (BEAKER) 139 meq/L 136-145 (test code = 381) POTASSIUM (BEAKER) 5.6 meq/L 3.5-5.1 H Specimen slightly (test code = 379) hemolyzed CHLORIDE (BEAKER) 109 meq/L 98-107 H (test code = 382) CO2 (BEAKER) (test 25 meq/L 22-29 code = 355) BLOOD UREA NITROGEN 49 mg/dL 7-21 H (BEAKER) (test code = 354) CREATININE (BEAKER) 0.98 mg/dL 0.57-1.25 Specimen slightly (test code = 358) hemolyzed GLUCOSE RANDOM 170 mg/dL 70-105 H (BEAKER) (test code = 652) CALCIUM (BEAKER) 8.0 mg/dL 8.4-10.2 L (test code = 697) EGFR (BEAKER) (test 54 mL/min/1.73 ESTIMA BLANCA GFR IS code = 1092) sq m NOT ACCURATE CREATININE CLEARANCE IN PREDICTING GLOMERULAR FILTRATION RATE . ESTIMATED GFR I S NOT APPLICABLE FOR DIALYSIS PATIEN TS. Document Coordinator ID - BSLACTATE DEHYDROGENASE (LDH)2019-06-09 16:00:00 Test Item Value Reference Range Interpretation Comments LACTATE DEHYDROGENASE 426 U/L 125-220 H Specim en slightly (BEAKER) (test code = hemoly zed 635) Document Coordinator ID - BS(CELLAVISION MANUAL DIFF)2019-06-09 15:14:00 Test Item Value Reference Range Interpretation Comments NEUTROPHILS - REL 64 % (CELLAVISION)(BEAKER) (test code = 2816) LYMPHOCYTES - REL 5 % (CELLAVISION)(BEAKER) (test code = 2817) MONOCYTES - REL 9 % (CELLAVISION)(BEAKER) (test code = 2818) METAMYELOCYTES - REL 8 % 0-0 H (CELLAVISION)(BEAKER) (test code = 2821) MYELOCYTES - REL 3 % 0-0 H (CELLAVISION)(BEAKER) (test code = 2822) BANDS - REL (CELLAVISION)(BEAKER) 10 % 0-10 (test code = 2826) NEUTROPHILS - ABS 16.51 K/ul 1.56-6.13 H (CELLAVISION)(BEAKER) (test code = 2830) LYMPHOCYTES - ABS 1.29 K/ul 1.18-3.74 (CELLAVISION)(BEAKER) (test code = 2831) MONOCYTES - ABS 2.32 K/uL 0.24-0.36 H (CELLAVISION)(BEAKER) (test code = 2832) METAMYELOCYTES - ABS 2.06 K/uL 0.00-0.00 H (CELLAVISION)(BEAKER) (test code = 2836) MYELOCYTES-ABS 0.77 K/uL 0.00-0.00 H (CELLAVISION)(BEAKER) (test code = 2837) BANDS - ABS (CELLAVISION)(BEAKER) 2.58 K/uL 0.00-0.80 H (test code = 2840) TOTAL COUNTED (BEAKER) (test code 100 = 1351) RBC MORPHOLOGY (BEAKER) (test code Normal = 762) GIANT PLATELETS (BEAKER) (test Present code = 313) VACUOLATED NEUTROPHILS (BEAKER) Present (test code = 483) ARTIFACT (CELLAVISION)(BEAKER) Present (test code = 3432) PLATELET CONCENTRATION Increased (CELLAVISION)(BEAKER) (test code = 3438) Document Coordinator ID - MazinPaulette comments: Slide comments:CBC W/PLT COUNT & AUTO [id number] 15:14:00 Test Item Value Reference Range Interpretation Comments WHITE BLOOD CELL COUNT (BEAKER) 25.8 K/ L 3.5-10.5 H (test code = 775) RED BLOOD CELL COUNT (BEAKER) 2.54 M/ L 3.93-5.22 L (test code = 761) HEMOGLOBIN (BEAKER) (test code = 8.0 GM/DL 11.2-15.7 L 410) HEMATOCRIT (BEAKER) (test code = 23.3 % 34.1-44.9 L 411) MEAN CORPUSCULAR VOLUME (BEAKER) 91.7 fL 79.4-94.8 (test code = 753) MEAN CORPUSCULAR HEMOGLOBIN 31.5 pg 25.6-32.2 (BEAKER) (test code = 751) MEAN CORPUSCULAR HEMOGLOBIN CONC 34.3 GM/DL 32.2-35.5 (BEAKER) (test code = 752) RED CELL DISTRIBUTION WIDTH 18.3 % 11.7-14.4 H (BEAKER) (test code = 412) PLATELET COUNT (BEAKER) (test 423 K/CU MM 150-450 code = 756) MEAN PLATELET VOLUME (BEAKER) 12.4 fL 9.4-12.3 H (test code = 754) NUCLEATED RED BLOOD CELLS 0 /100 WBC 0-0 (BEAKER) (test code = 413) POCT-GLUCOSE [id number] 12:21:00 Test Item Value Reference Range Interpretation Comments POC-GLUCOSE METER 201 mg/dL 70-110 H : TESTED [place] [facility] 6720 (BEAKER) (test code = [place], 1538) [address]: Document Coordinator/Techni sharla ID = [id number] for TIMOTHY ROY CBC W/PLT COUNT & AUTO [id number] 07:10:00 Test Item Value Reference Range Interpretation Comments WHITE BLOOD CELL COUNT (BEAKER) 27.2 K/ L 3.5-10.5 H (test code = 775) RED BLOOD CELL COUNT (BEAKER) 2.29 M/ L 3.93-5.22 L (test code = 761) HEMOGLOBIN (BEAKER) (test code = 6.7 GM/DL 11.2-15.7 L 410) HEMATOCRIT (BEAKER) (test code = 21.2 % 34.1-44.9 L 411) MEAN CORPUSCULAR VOLUME (BEAKER) 92.6 fL 79.4-94.8 (test code = 753) MEAN CORPUSCULAR HEMOGLOBIN 29.3 pg 25.6-32.2 (BEAKER) (test code = 751) MEAN CORPUSCULAR HEMOGLOBIN CONC 31.6 GM/DL 32.2-35.5 L (BEAKER) (test code = 752) RED CELL DISTRIBUTION WIDTH 16.2 % 11.7-14.4 H (BEAKER) (test code = 412) PLATELET COUNT (BEAKER) (test 425 K/CU MM 150-450 code = 756) MEAN PLATELET VOLUME (BEAKER) 12.4 fL 9.4-12.3 H (test code = 754) NUCLEATED RED BLOOD CELLS 0 /100 WBC 0-0 (BEAKER) (test code = 413) (CELLAVISION MANUAL DIFF)2019-06-09 07:10:00 Test Item Value Reference Range Interpretation Comments NEUTROPHILS - REL 72 % (CELLAVISION)(BEAKER) (test code = 2816) LYMPHOCYTES - REL 7 % (CELLAVISION)(BEAKER) (test code = 2817) MONOCYTES - REL 13 % (CELLAVISION)(BEAKER) (test code = 2818) METAMYELOCYTES - REL 4 % 0-0 H (CELLAVISION)(BEAKER) (test code = 2821) MYELOCYTES - REL 2 % 0-0 H (CELLAVISION)(BEAKER) (test code = 2822) PROMYELOCYTES - REL 2 % 0-0 H (CELLAVSION)(BEAKER) (test code = 2825) NEUTROPHILS - ABS 19.58 K/ul 1.56-6.13 H (CELLAVISION)(BEAKER) (test code = 2830) LYMPHOCYTES - ABS 1.90 K/ul 1.18-3.74 (CELLAVISION)(BEAKER) (test code = 2831) MONOCYTES - ABS 3.54 K/uL 0.24-0.36 H (CELLAVISION)(BEAKER) (test code = 2832) METAMYELOCYTES - ABS 1.09 K/uL 0.00-0.00 H (CELLAVISION)(BEAKER) (test code = 2836) MYELOCYTES-ABS 0.54 K/uL 0.00-0.00 H (CELLAVISION)(BEAKER) (test code = 2837) PROMYELOCYTES - ABS 0.54 K/uL 0.00-0.00 H (CELLAVISION)(BEAKER) (test code = 2838) TOTAL COUNTED (BEAKER) (test code 100 = 1351) SMUDGE CELLS (BEAKER) (test code Present = 1371) GIANT PLATELETS (BEAKER) (test Present code = 313) POLYCHROMATOPHILLIC RBCS(BEAKER) 1+ few (test code = 478) HYPOCHROMIA (BEAKER) (test code = 2+ moderate 963) ANISOCYTOSIS (BEAKER) (test code 1+ few = 961) POIKILOCYTES (BEAKER) (test code 1+ few = 966) ELLIPTOCYTES (BEAKER) (test code 1+ few = 962) OVALOCYTES (BEAKER) (test code = 1+ few 477) CHOLO CELLS (BEAKER) (test code = 2+ moderate 474) PLATELET CONCENTRATION Increased (CELLAVISION)(BEAKER) (test code = 3438) Document Coordinator ID - Nellie Soto comments: Slide comments:RAD, CHEST, 1 VIEW, NON [id number] 05:14:00Reason for exam:->evaluate for pulmonary edemaShould this be performed at the bedside?->YesFINAL REPORT RAD, CHEST, 1 VIEW, NON DEPT INDICATION: evaluate for pulmonary edema COMPARISON: Prior day's exam FINDINGS: Portable frontal view of the chest. IMPRESSION: Support Lines: Stable right PICC Lungs and pleura: Unchanged airspace and pleural opacities. No pneumothorax.Heart and mediastinum: Stable contours. Additional findings: None. Signed: Daphne Gardnerepjevon Verified Date/Time: 06/09/2019 05:14:59 [id number] 04:35:00 Test Item Value Reference Range Interpretation Comments PHOSPHORUS (BEAKER) (test code = 4.2 mg/dL 2.3-4.7 604) Document Coordinator ID - YOSSI [id number] 04:35:00 Test Item Value Reference Range Interpretation Comments MAGNESIUM (BEAKER) (test code = 2.3 mg/dL 1.6-2.6 627) Document Coordinator ID - YOSSI MBASIC METABOLIC [id number] 04:35:00 Test Item Value Reference Range Interpretation Comments SODIUM (BEAKER) 141 meq/L 136-145 (test code = 381) POTASSIUM (BEAKER) 5.1 meq/L 3.5-5.1 (test code = 379) CHLORIDE (BEAKER) 110 meq/L 98-107 H (test code = 382) CO2 (BEAKER) (test 23 meq/L 22-29 code = 355) BLOOD UREA NITROGEN 49 mg/dL 7-21 H (BEAKER) (test code = 354) CREATININE (BEAKER) 0.97 mg/dL 0.57-1.25 (test code = 358) GLUCOSE RANDOM 176 mg/dL 70-105 H (BEAKER) (test code = 652) CALCIUM (BEAKER) 8.6 mg/dL 8.4-10.2 (test code = 697) EGFR (BEAKER) (test 55 mL/min/1.73 ESTIMA BLANCA GFR IS code = 1092) sq m NOT ACCURATE CREATININE CLEARANCE IN PREDICTING GLOMERULAR FILTRATION RATE . ESTIMATED GFR I S NOT APPLICABLE FOR DIALYSIS PATIEN TS. Document Coordinator ID - YOSSI [id number] 04:26:00 Test Item Value Reference Range Interpretation Comments PROTIME (BEAKER) (test code = 15.9 seconds 11.9-14.2 H 759) INR (BEAKER) (test code = 370) 1.3 <=5.9 PARTIAL THROMBOPLASTIN TIME 29.9 seconds 22.5-36.0 (BEAKER) (test code = 760) Effective 08/27/2018: PT Reference Range ChangeNew: 11.9-14.2 Previous: 11.7- 14.7RECOMMENDED COUMADIN/WARFARIN INR THERAPY RANGESSTANDARD DOSE: 2.0-3.0 Includes: PROPHYLAXIS for venous thrombosis, systemic embolization; TREATMENT for venous thrombosis and/or pulmonary embolus.HIGH RISK: Target INR is2.5-3.5 for patients wiht mechanical heart valves.CALCIUM, [id number] 03:50:00 Test Item Value Reference Range Interpretation Comments CALCIUM IONIZED (BEAKER) (test 1.19 mmol/L 1.12-1.27 code = 698) PH, BLOOD (BEAKER) (test code = 7.47 1810) POCT-GLUCOSE [id number] 00:40:00 Test Item Value Reference Range Interpretation Comments POC-GLUCOSE METER 167 mg/dL 70-110 H : TESTED A T [facility] 6720 (BEAKER) (test code = [place], 1538) [id number]: Document Coordinator/Techni sharla ID = [id number] for [facility], [place] BASIC METABOLIC [id number] 21:58:00 Test Item Value Reference Range Interpretation Comments SODIUM (BEAKER) 144 meq/L 136-145 (test code = 381) POTASSIUM (BEAKER) 4.4 meq/L 3.5-5.1 (test code = 379) CHLORIDE (BEAKER) 116 meq/L 98-107 H (test code = 382) CO2 (BEAKER) (test 21 meq/L 22-29 L code = 355) BLOOD UREA NITROGEN 43 mg/dL 7-21 H (BEAKER) (test code = 354) CREATININE (BEAKER) 0.78 mg/dL 0.57-1.25 (test code = 358) GLUCOSE RANDOM 133 mg/dL 70-105 H (BEAKER) (test code = 652) CALCIUM (BEAKER) 6.6 mg/dL 8.4-10.2 L (test code = 697) EGFR (BEAKER) (test 70 mL/min/1.73 ESTIMA BLANCA GFR IS code = 1092) sq m NOT ACCURATE CREATININE CLEARANCE IN PREDICTING GLOMERULAR FILTRATION RATE . ESTIMATED GFR I S NOT APPLICABLE FOR DIALYSIS PATIEN TS. Document Coordinator ID - BSBASIC METABOLIC [id number] 18:46:00 Test Item Value Reference Range Interpretation Comments SODIUM (BEAKER) 140 meq/L 136-145 (test code = 381) POTASSIUM (BEAKER) 5.1 meq/L 3.5-5.1 (test code = 379) CHLORIDE (BEAKER) 110 meq/L 98-107 H (test code = 382) CO2 (BEAKER) (test 23 meq/L 22-29 code = 355) BLOOD UREA NITROGEN 49 mg/dL 7-21 H (BEAKER) (test code = 354) CREATININE (BEAKER) 0.99 mg/dL 0.57-1.25 (test code = 358) GLUCOSE RANDOM 200 mg/dL 70-105 H (BEAKER) (test code = 652) CALCIUM (BEAKER) 7.7 mg/dL 8.4-10.2 L (test code = 697) EGFR (BEAKER) (test 53 mL/min/1.73 ESTIMA BLANCA GFR IS code = 1092) sq m NOT ACCURATE CREATININE CLEARANCE IN PREDICTING GLOMERULAR FILTRATION RATE . ESTIMATED GFR I S NOT APPLICABLE FOR DIALYSIS PATIEN TS. Document Coordinator ID - BSPOCT-GLUCOSE [id number] 18:06:00 Test Item Value Reference Range Interpretation Comments POC-GLUCOSE METER 203 mg/dL 70-110 H : TESTED A T [facility] [address] [facility] (test code = [facility] Hel[place] [facility], 1538) [address]: Document Coordinator/Techni sharla ID = [id number] for WILLIAMS SILVERMARISABEL MERLINE POCT-GLUCOSE [id number] 11:43:00 Test Item Value Reference Range Interpretation Comments POC-GLUCOSE METER 172 mg/dL 70-110 H : Notified RN/MD: (AFIA) (test code = TESTED AT [facility] 6720 1538) [facility], [id number]: Document Coordinator/Techni sharla ID = [id number] for WILLIAMS SILVERMARISABELMERLINE CBC W/PLT COUNT & AUTO [id number] 10:50:00 Test Item Value Reference Range Interpretation Comments WHITE BLOOD CELL COUNT (BEAKER) 25.7 K/ L 3.5-10.5 H (test code = 775) RED BLOOD CELL COUNT (BEAKER) 2.46 M/ L 3.93-5.22 L (test code = 761) HEMOGLOBIN (BEAKER) (test code = 7.3 GM/DL 11.2-15.7 L 410) HEMATOCRIT (BEAKER) (test code = 22.6 % 34.1-44.9 L 411) MEAN CORPUSCULAR VOLUME (BEAKER) 91.9 fL 79.4-94.8 (test code = 753) MEAN CORPUSCULAR HEMOGLOBIN 29.7 pg 25.6-32.2 (BEAKER) (test code = 751) MEAN CORPUSCULAR HEMOGLOBIN CONC 32.3 GM/DL 32.2-35.5 (BEAKER) (test code = 752) RED CELL DISTRIBUTION WIDTH 15.9 % 11.7-14.4 H (BEAKER) (test code = 412) PLATELET COUNT (BEAKER) (test 361 K/CU MM 150-450 code = 756) MEAN PLATELET VOLUME (BEAKER) 12.3 fL 9.4-12.3 (test code = 754) NUCLEATED RED BLOOD CELLS 0 /100 WBC 0-0 (BEAKER) (test code = 413) (CELLAVISION MANUAL DIFF)2019-06-08 10:50:00 Test Item Value Reference Range Interpretation Comments NEUTROPHILS - REL 77 % (CELLAVISION)(BEAKER) (test code = 2816) LYMPHOCYTES - REL 1 % (CELLAVISION)(BEAKER) (test code = 2817) MONOCYTES - REL 8 % (CELLAVISION)(BEAKER) (test code = 2818) EOSINOPHILS - REL 2 % (CELLAVISION)(BEAKER) (test code = 2819) METAMYELOCYTES - REL 4 % 0-0 H (CELLAVISION)(BEAKER) (test code = 2821) MYELOCYTES - REL 3 % 0-0 H (CELLAVISION)(BEAKER) (test code = 2822) BANDS - REL (CELLAVISION)(BEAKER) 5 % 0-10 (test code = 2826) NEUTROPHILS - ABS 19.79 K/ul 1.56-6.13 H (CELLAVISION)(BEAKER) (test code = 2830) LYMPHOCYTES - ABS 0.26 K/ul 1.18-3.74 L (CELLAVISION)(BEAKER) (test code = 2831) MONOCYTES - ABS 2.06 K/uL 0.24-0.36 H (CELLAVISION)(BEAKER) (test code = 2832) EOSINOPHILS - ABS 0.51 K/uL 0.04-0.36 H (CELLAVISION)(BEAKER) (test code = 2834) METAMYELOCYTES - ABS 1.03 K/uL 0.00-0.00 H (CELLAVISION)(BEAKER) (test code = 2836) MYELOCYTES-ABS 0.77 K/uL 0.00-0.00 H (CELLAVISION)(BEAKER) (test code = 2837) BANDS - ABS (CELLAVISION)(BEAKER) 1.29 K/uL 0.00-0.80 H (test code = 2840) TOTAL COUNTED (BEAKER) (test code 100 = 1351) RBC MORPHOLOGY (BEAKER) (test code Normal = 762) WBC MORPHOLOGY (BEAKER) (test code Normal = 487) PLT MORPHOLOGY (BEAKER) (test code Normal = 486) ARTIFACT (CELLAVISION)(BEAKER) Present (test code = 3432) PLATELET CONCENTRATION Adequate (CELLAVISION)(BEAKER) (test code = 3438) Document Coordinator ID - Rosario OverholtUser comments: Slide comments:C. DIFFICILE GDH TOXIN 2019-06-08 10:35:00 Test Item Value Reference Range Interpretation Comments CDT TOXIN (test code Negative Negative = [id number]) CDT GDH ANTIGEN (test Negative Negative No ind ication of code = [id number]) Clostridi um difficile infection and n o colonization. Discontinue ent eveline isolation and t herapy. Testing performed by [employer] Rapid Cassette Assay. For GDH, published sensitivity of the assay is 98.7% compared to cytotoxicity testing. For Toxin AB, published sensitivity is 87.8% and specificity 99.4% compared to cytotoxicity testing.Verification of kit performance was done by the [facility] Microbiology Lab prior to clinical use.POCT-GLUCOSE [id number] 06:20:00 Test Item Value Reference Range Interpretation Comments POC-GLUCOSE METER 178 mg/dL 70-110 H : TESTED A T [facility] 6720 (BEAKER) (test code = [place], 1538) [address]: Document Coordinator/Techni sharla ID = [id number] for PRETTY FRIEDMAN BASIC METABOLIC [id number] 06:01:00 Test Item Value Reference Range Interpretation Comments SODIUM (BEAKER) 142 meq/L 136-145 (test code = 381) POTASSIUM (BEAKER) 5.0 meq/L 3.5-5.1 (test code = 379) CHLORIDE (BEAKER) 112 meq/L 98-107 H (test code = 382) CO2 (BEAKER) (test 22 meq/L 22-29 code = 355) BLOOD UREA NITROGEN 52 mg/dL 7-21 H (BEAKER) (test code = 354) CREATININE (BEAKER) 0.99 mg/dL 0.57-1.25 (test code = 358) GLUCOSE RANDOM 159 mg/dL 70-105 H (BEAKER) (test code = 652) CALCIUM (BEAKER) 7.9 mg/dL 8.4-10.2 L (test code = 697) EGFR (BEAKER) (test 53 mL/min/1.73 ESTIMA BLANCA GFR IS code = 1092) sq m NOT ACCURATE CREATININE CLEARANCE IN PREDICTING GLOMERULAR FILTRATION RATE . ESTIMATED GFR I S NOT APPLICABLE FOR DIALYSIS PATIEN TS. Document Coordinator ID - PICARMEN [id number] 05:56:00 Test Item Value Reference Range Interpretation Comments PHOSPHORUS (BEAKER) (test code = 4.2 mg/dL 2.3-4.7 604) Document Coordinator ID - SHANON [id number] 05:56:00 Test Item Value Reference Range Interpretation Comments MAGNESIUM (BEAKER) (test code = 2.5 mg/dL 1.6-2.6 627) Document Coordinator ID - SHANON LRAD, CHEST, 1 VIEW, NON [id number] 05:14:00Reason for exam:->evaluate for pulmonary edemaShould this [...] mediastinum: Stable contours. Additional findings: None. Signed: Jj, Daphne MDReport Verified Date/Time: 06/08/2019 05:14:39 PT/APTT 2019-06-08 04:39:00 Test Item Value Reference Range Interpretation Comments PROTIME (BEAKER) (test code = 15.6 seconds 11.9-14.2 H 759) INR (BEAKER) (test code = 370) 1.3 <=5.9 PARTIAL THROMBOPLASTIN TIME 27.6 seconds 22.5-36.0 (BEAKER) (test code = 760) Effective 08/27/2018: PT Reference Range ChangeNew: 11.9-14.2 Previous: 11.7- 14.7RECOMMENDED COUMADIN/WARFARIN INR THERAPY RANGESSTANDARD DOSE: 2.0-3.0 Includes: PROPHYLAXIS for venous thrombosis, systemic embolization; TREATMENT for venous thrombosis and/or pulmonary embolus.HIGH RISK: Target INR is2.5-3.5 for patients wiht mechanical heart valves.POCT-GLUCOSE [id number] 00:12:00 Test Item Value Reference Range Interpretation Comments POC-GLUCOSE METER 205 mg/dL 70-110 H : TESTED A T [facility] 6720 (BEAKER) (test code = [place], 1538) [address]: Document Coordinator/Techni sharla ID = [id number] for PRETTY FRIEDMAN BASIC METABOLIC [id number] 21:51:00 Test Item Value Reference Range Interpretation Comments SODIUM (BEAKER) 139 meq/L 136-145 (test code = 381) POTASSIUM (BEAKER) 4.6 meq/L 3.5-5.1 (test code = 379) CHLORIDE (BEAKER) 111 meq/L 98-107 H (test code = 382) CO2 (BEAKER) (test 21 meq/L 22-29 L code = 355) BLOOD UREA NITROGEN 52 mg/dL 7-21 H (BEAKER) (test code = 354) CREATININE (BEAKER) 1.02 mg/dL 0.57-1.25 (test code = 358) GLUCOSE RANDOM 211 mg/dL 70-105 H (BEAKER) (test code = 652) CALCIUM (BEAKER) 7.8 mg/dL 8.4-10.2 L (test code = 697) EGFR (BEAKER) (test 52 mL/min/1.73 ESTIMA BLANCA GFR IS code = 1092) sq m NOT ACCURATE CREATININE CLEARANCE IN PREDICTING GLOMERULAR FILTRATION RATE . ESTIMATED GFR I S NOT APPLICABLE FOR DIALYSIS PATIEN TS. Document Coordinator ID - DBPOCT-GLUCOSE [id number] 18:32:00 Test Item Value Reference Range Interpretation Comments POC-GLUCOSE METER 194 mg/dL 70-110 H : TESTED A T [facility] 67[address] (BEAKER) (test code = [place]AN[place]YSSES [place], 1538) [address]: Document Coordinator/Techni sharla ID = [id number] for SHAHRZAD AYERS BASIC METABOLIC [id number] 15:14:00 Test Item Value Reference Range Interpretation Comments SODIUM (BEAKER) 141 meq/L 136-145 (test code = 381) POTASSIUM (BEAKER) 4.6 meq/L 3.5-5.1 (test code = 379) CHLORIDE (BEAKER) 112 meq/L 98-107 H (test code = 382) CO2 (BEAKER) (test 21 meq/L 22-29 L code = 355) BLOOD UREA NITROGEN 51 mg/dL 7-21 H (BEAKER) (test code = 354) CREATININE (BEAKER) 0.97 mg/dL 0.57-1.25 (test code = 358) GLUCOSE RANDOM 159 mg/dL 70-105 H (BEAKER) (test code = 652) CALCIUM (BEAKER) 7.8 mg/dL 8.4-10.2 L (test code = 697) EGFR (BEAKER) (test 55 mL/min/1.73 ESTIMA BLANCA GFR IS code = 1092) sq m NOT ACCURATE CREATININE CLEARANCE IN PREDICTING GLOMERULAR FILTRATION RATE . ESTIMATED GFR I S NOT APPLICABLE FOR DIALYSIS PATIEN TS. Document Coordinator ID - PIAYA LCBC W/PLT COUNT & AUTO [id number] 14:07:00 Test Item Value Reference Range Interpretation Comments WHITE BLOOD CELL COUNT (BEAKER) 21.9 K/ L 3.5-10.5 H (test code = 775) RED BLOOD CELL COUNT (BEAKER) 2.46 M/ L 3.93-5.22 L (test code = 761) HEMOGLOBIN (BEAKER) (test code = 7.7 GM/DL 11.2-15.7 L 410) HEMATOCRIT (BEAKER) (test code = 23.4 % 34.1-44.9 L 411) MEAN CORPUSCULAR VOLUME (BEAKER) 95.1 fL 79.4-94.8 H (test code = 753) MEAN CORPUSCULAR HEMOGLOBIN 31.3 pg 25.6-32.2 (BEAKER) (test code = 751) MEAN CORPUSCULAR HEMOGLOBIN CONC 32.9 GM/DL 32.2-35.5 (BEAKER) (test code = 752) RED CELL DISTRIBUTION WIDTH 16.2 % 11.7-14.4 H (BEAKER) (test code = 412) PLATELET COUNT (BEAKER) (test 307 K/CU MM 150-450 code = 756) MEAN PLATELET VOLUME (BEAKER) 12.5 fL 9.4-12.3 H (test code = 754) NUCLEATED RED BLOOD CELLS 0 /100 WBC 0-0 (BEAKER) (test code = 413) (CELLAVISION MANUAL DIFF)2019-06-07 14:07:00 Test Item Value Reference Range Interpretation Comments NEUTROPHILS - REL 76 % (CELLAVISION)(BEAKER) (test code = 2816) LYMPHOCYTES - REL 7 % (CELLAVISION)(BEAKER) (test code = 2817) MONOCYTES - REL 7 % (CELLAVISION)(BEAKER) (test code = 2818) EOSINOPHILS - REL 1 % (CELLAVISION)(BEAKER) (test code = 2819) METAMYELOCYTES - REL 3 % 0-0 H (CELLAVISION)(BEAKER) (test code = 2821) MYELOCYTES - REL 2 % 0-0 H (CELLAVISION)(BEAKER) (test code = 2822) BANDS - REL (CELLAVISION)(BEAKER) 2 % 0-10 (test code = 2826) ATYPICAL LYMPHOCYTES - REL 2 % 0-0 H (CELLAVISION)(BEAKER) (test code = 2829) NEUTROPHILS - ABS 16.64 K/ul 1.56-6.13 H (CELLAVISION)(BEAKER) (test code = 2830) LYMPHOCYTES - ABS 1.53 K/ul 1.18-3.74 (CELLAVISION)(BEAKER) (test code = 2831) MONOCYTES - ABS 1.53 K/uL 0.24-0.36 H (CELLAVISION)(BEAKER) (test code = 2832) EOSINOPHILS - ABS 0.22 K/uL 0.04-0.36 (CELLAVISION)(BEAKER) (test code = 2834) METAMYELOCYTES - ABS 0.66 K/uL 0.00-0.00 H (CELLAVISION)(BEAKER) (test code = 2836) MYELOCYTES-ABS 0.44 K/uL 0.00-0.00 H (CELLAVISION)(BEAKER) (test code = 2837) BANDS - ABS (CELLAVISION)(BEAKER) 0.44 K/uL 0.00-0.80 (test code = 2840) ATYPICAL LYMPHOCYTES - ABS 0.44 K/uL 0.00-0.00 H (CELLAVISION)(BEAKER) (test code = 2858) TOTAL COUNTED (BEAKER) (test code 100 = 1351) RBC MORPHOLOGY (BEAKER) (test code Normal = 762) WBC MORPHOLOGY (BEAKER) (test code Normal = 487) PLT MORPHOLOGY (BEAKER) (test code Normal = 486) POCT-GLUCOSE [id number] 13:31:00 Test Item Value Reference Range Interpretation Comments POC-GLUCOSE METER 185 mg/dL 70-110 H : TESTED A T [facility] 6720 (BEAKER) (test code = CELINA Partida [facility], 1538) [address]: Document Coordinator/Techni sharla ID = [id number] for SHAHRZAD AYERS CBC W/PLT COUNT & AUTO [id number] 08:17:00 Test Item Value Reference Range Interpretation Comments WHITE BLOOD CELL COUNT (BEAKER) 22.3 K/ L 3.5-10.5 H (test code = 775) RED BLOOD CELL COUNT (BEAKER) 2.41 M/ L 3.93-5.22 L (test code = 761) HEMOGLOBIN (BEAKER) (test code = 7.1 GM/DL 11.2-15.7 L 410) HEMATOCRIT (BEAKER) (test code = 22.1 % 34.1-44.9 L 411) MEAN CORPUSCULAR VOLUME (BEAKER) 91.7 fL 79.4-94.8 (test code = 753) MEAN CORPUSCULAR HEMOGLOBIN 29.5 pg 25.6-32.2 (BEAKER) (test code = 751) MEAN CORPUSCULAR HEMOGLOBIN CONC 32.1 GM/DL 32.2-35.5 L (BEAKER) (test code = 752) RED CELL DISTRIBUTION WIDTH 15.7 % 11.7-14.4 H (BEAKER) (test code = 412) PLATELET COUNT (BEAKER) (test 272 K/CU MM 150-450 code = 756) MEAN PLATELET VOLUME (BEAKER) 12.5 fL 9.4-12.3 H (test code = 754) NUCLEATED RED BLOOD CELLS 0 /100 WBC 0-0 (BEAKER) (test code = 413) (CELLAVISION MANUAL DIFF)2019-06-07 08:17:00 Test Item Value Reference Range Interpretation Comments NEUTROPHILS - REL 87 % (CELLAVISION)(BEAKER) (test code = 2816) MONOCYTES - REL 6 % (CELLAVISION)(BEAKER) (test code = 2818) MYELOCYTES - REL 3 % 0-0 H (CELLAVISION)(BEAKER) (test code = 2822) BANDS - REL (CELLAVISION)(BEAKER) 4 % 0-10 (test code = 2826) NEUTROPHILS - ABS 19.40 K/ul 1.56-6.13 H (CELLAVISION)(BEAKER) (test code = 2830) MONOCYTES - ABS 1.34 K/uL 0.24-0.36 H (CELLAVISION)(BEAKER) (test code = 2832) MYELOCYTES-ABS 0.67 K/uL 0.00-0.00 H (CELLAVISION)(BEAKER) (test code = 2837) BANDS - ABS (CELLAVISION)(BEAKER) 0.89 K/uL 0.00-0.80 H (test code = 2840) TOTAL COUNTED (BEAKER) (test code 100 = 1351) SMUDGE CELLS (BEAKER) (test code Present = 1371) GIANT PLATELETS (BEAKER) (test Present code = 313) ANISOCYTOSIS (BEAKER) (test code 2+ moderate = 961) MACROCYTES (BEAKER) (test code = 2+ moderate 964) PLATELET CONCENTRATION Adequate (CELLAVISION)(BEAKER) (test code = 3438) Document Coordinator ID - Julio PaulJoy comments: Slide comments:[id number] 05:28:00 Test Item Value Reference Range Interpretation Comments PREALBUMIN (BEAKER) (test code = 586) 8 mg/dL 14-45 L Document Coordinator ID - SHANON LBASIC METABOLIC [id number] 05:06:00 Test Item Value Reference Range Interpretation Comments SODIUM (BEAKER) 141 meq/L 136-145 (test code = 381) POTASSIUM (BEAKER) 4.0 meq/L 3.5-5.1 (test code = 379) CHLORIDE (BEAKER) 110 meq/L 98-107 H (test code = 382) CO2 (BEAKER) (test 23 meq/L 22-29 code = 355) BLOOD UREA NITROGEN 52 mg/dL 7-21 H (BEAKER) (test code = 354) CREATININE (BEAKER) 1.05 mg/dL 0.57-1.25 (test code = 358) GLUCOSE RANDOM 171 mg/dL 70-105 H (BEAKER) (test code = 652) CALCIUM (BEAKER) 7.5 mg/dL 8.4-10.2 L (test code = 697) EGFR (BEAKER) (test 50 mL/min/1.73 ESTIMA BLANCA GFR IS code = 1092) sq m NOT ACCURATE CREATININE CLEARANCE IN PREDICTING GLOMERULAR FILTRATION RATE . ESTIMATED GFR I S NOT APPLICABLE FOR DIALYSIS PATIEN TS. Document Coordinator ID - SHANON [id number] 04:47:00 Test Item Value Reference Range Interpretation Comments TRIGLYCERIDES (BEAKER) (test code = 159 mg/dL 540) TRIGLYCERIDE REFERENCE RANGELow Risk <150Borderline Risk 150-199High Risk 200-499Very High Risk>=500Operator ID - PICARMEN [id number] 04:47:00 Test Item Value Reference Range Interpretation Comments MAGNESIUM (BEAKER) (test code = 2.4 mg/dL 1.6-2.6 627) Document Coordinator ID - SHANON [id number] 04:47:00 Test Item Value Reference Range Interpretation Comments PHOSPHORUS (BEAKER) (test code = 4.0 mg/dL 2.3-4.7 604) Document Coordinator ID - SHANON LHEPATIC FUNCTION [id number] 04:47:00 Test Item Value Reference Range Interpretation Comments TOTAL PROTEIN (BEAKER) (test code = 4.5 gm/dL 6.0-8.3 L 770) ALBUMIN (BEAKER) (test code = 1145) 2.2 g/dL 3.5-5.0 L BILIRUBIN TOTAL (BEAKER) (test code 0.4 mg/dL 0.2-1.2 = 377) BILIRUBIN DIRECT (BEAKER) (test 0.2 mg/dL 0.1-0.5 code = 706) ALKALINE PHOSPHATASE (BEAKER) (test 81 U/L 40-150 code = 346) AST (SGOT) (BEAKER) (test code = 50 U/L 5-34 H 353) ALT (SGPT) (BEAKER) (test code = 44 U/L 6-55 347) Document Coordinator ID - SHANON [id number] 04:46:00 Test Item Value Reference Range Interpretation Comments PROTIME (BEAKER) (test code = 15.7 seconds 11.9-14.2 H 759) INR (BEAKER) (test code = 370) 1.3 <=5.9 PARTIAL THROMBOPLASTIN TIME 28.6 seconds 22.5-36.0 (BEAKER) (test code = 760) Effective 08/27/2018: PT Reference Range ChangeNew: 11.9-14.2 Previous: 11.7- 14.7RECOMMENDED COUMADIN/WARFARIN INR THERAPY RANGESSTANDARD DOSE: 2.0-3.0 Includes: PROPHYLAXIS for venous thrombosis, systemic embolization; TREATMENT for venous thrombosis and/or pulmonary embolus.HIGH RISK: Target INR is2.5-3.5 for patients wiht mechanical heart valves.RAD, CHEST, 1 VIEW, NON [id number] 03:20:00Reason for exam:->evaluate for pulmonary edemaShould this [...] Gardner MDReport Verified Date/Time: 06/07/2019 03:20:09 POCT-GLUCOSE [id number] 23:59:00 Test Item Value Reference Range Interpretation Comments POC-GLUCOSE METER 167 mg/dL 70-110 H : TESTED A T [facility] 6720 (BEAKER) (test code = CELINA Partida [facility], 1538) [address]: Document Coordinator/Techni sharla ID = [id number] for [place] MS, SENOR[place] BASIC METABOLIC [id number] 21:20:00 Test Item Value Reference Range Interpretation Comments SODIUM (BEAKER) 141 meq/L 136-145 (test code = 381) POTASSIUM (BEAKER) 3.9 meq/L 3.5-5.1 (test code = 379) CHLORIDE (BEAKER) 108 meq/L 98-107 H (test code = 382) CO2 (BEAKER) (test 23 meq/L 22-29 code = 355) BLOOD UREA NITROGEN 55 mg/dL 7-21 H (BEAKER) (test code = 354) CREATININE (BEAKER) 1.07 mg/dL 0.57-1.25 (test code = 358) GLUCOSE RANDOM 169 mg/dL 70-105 H (BEAKER) (test code = 652) CALCIUM (BEAKER) 7.6 mg/dL 8.4-10.2 L (test code = 697) EGFR (BEAKER) (test 49 mL/min/1.73 ESTIMA BLANCA GFR IS code = 1092) sq m NOT ACCURATE CREATININE CLEARANCE IN PREDICTING GLOMERULAR FILTRATION RATE . ESTIMATED GFR I S NOT APPLICABLE FOR DIALYSIS PATIEN TS. Document Coordinator ID - YOSSI MC-REACTIVE [id number] 21:16:00 Test Item Value Reference Range Interpretation Comments C-REACTIVE PROTEIN (BEAKER) (test 19.41 mg/dL 0.00-0.50 H code = 676) Document Coordinator ID - YOSSI MVANCOMYCIN LEVEL, [id number] 19:05:00 Test Item Value Reference Range Interpretation Comments VANCOMYCIN TROUGH (BEAKER) (test 10.4 ug/mL 10.0-20.0 code = 522) Document Coordinator ID - YOSSI MPOCT-GLUCOSE [id number] 18:34:00 Test Item Value Reference Range Interpretation Comments POC-GLUCOSE METER 154 mg/dL 70-110 H : TESTED A T [facility] 6720 (BEAKER) (test code = CELINA JONES [place], 1538) [address]: Document Coordinator/Techni sharla ID = [id number] for SHAHRZAD AYERS OCCULT BLOOD, [id number] 17:57:00 Test Item Value Reference Range Interpretation Comments FECAL OCCULT BLOOD (BEAKER) (test Positive Negative A code = 618) [id number] 14:45:00 Test Item Value Reference Range Interpretation Comments AMYLASE (BEAKER) (test code = 349) 209 U/L 25-125 H Document Coordinator ID - [id number] 14:45:00 Test Item Value Reference Range Interpretation Comments LIPASE (BEAKER) (test code = 749) 100 U/L 8-78 H Document Coordinator ID - ROSIANGCOMPREHENSIVE METABOLIC [id number] 13:36:00 Test Item Value Reference Range Interpretation Comments TOTAL PROTEIN 4.7 gm/dL 6.0-8.3 L (BEAKER) (test code = 770) ALBUMIN (BEAKER) 2.4 g/dL 3.5-5.0 L (test code = 1145) ALKALINE PHOSPHATASE 66 U/L 40-150 (BEAKER) (test code = 346) BILIRUBIN TOTAL 0.5 mg/dL 0.2-1.2 (BEAKER) (test code = 377) SODIUM (BEAKER) (test 141 meq/L 136-145 code = 381) POTASSIUM (BEAKER) 3.9 meq/L 3.5-5.1 (test code = 379) CHLORIDE (BEAKER) 108 meq/L 98-107 H (test code = 382) CO2 (BEAKER) (test 22 meq/L 22-29 code = 355) BLOOD UREA NITROGEN 45 mg/dL 7-21 H (BEAKER) (test code = 354) CREATININE (BEAKER) 1.07 mg/dL 0.57-1.25 (test code = 358) GLUCOSE RANDOM 178 mg/dL 70-105 H (BEAKER) (test code = 652) CALCIUM (BEAKER) 7.7 mg/dL 8.4-10.2 L (test code = 697) AST (SGOT) (BEAKER) 36 U/L 5-34 H (test code = 353) ALT (SGPT) (BEAKER) 30 U/L 6-55 (test code = 347) EGFR (BEAKER) (test 49 mL/min/1.73 ESTIMA BLANCA GFR IS code = 1092) sq m NOT ACCURATE CREATININE CLEARANCE IN PREDICTING GLOMERULAR FILTRATION RATE . ESTIMATED GFR I S NOT APPLICABLE FOR DIALYSIS PATIEN TS. Document Coordinator ID - ROSIANGOperator ID - YOSSI MBASIC METABOLIC [id number] 13:12:00 Test Item Value Reference Range Interpretation Comments SODIUM (BEAKER) 140 meq/L 136-145 (test code = 381) POTASSIUM (BEAKER) 3.9 meq/L 3.5-5.1 (test code = 379) CHLORIDE (BEAKER) 108 meq/L 98-107 H (test code = 382) CO2 (BEAKER) (test 23 meq/L 22-29 code = 355) BLOOD UREA NITROGEN 43 mg/dL 7-21 H (BEAKER) (test code = 354) CREATININE (BEAKER) 1.06 mg/dL 0.57-1.25 (test code = 358) GLUCOSE RANDOM 179 mg/dL 70-105 H (BEAKER) (test code = 652) CALCIUM (BEAKER) 7.6 mg/dL 8.4-10.2 L (test code = 697) EGFR (BEAKER) (test 49 mL/min/1.73 ESTIMA BLANCA GFR IS code = 1092) sq m NOT ACCURATE CREATININE CLEARANCE IN PREDICTING GLOMERULAR FILTRATION RATE . ESTIMATED GFR I S NOT APPLICABLE FOR DIALYSIS PATIEN TS. CBC (HEMOGRAM ONLY)2019-06-06 12:38:00 Test Item Value Reference Range Interpretation Comments WHITE BLOOD CELL COUNT (BEAKER) 21.8 K/ L 3.5-10.5 H (test code = 775) RED BLOOD CELL COUNT (BEAKER) 2.71 M/ L 3.93-5.22 L (test code = 761) HEMOGLOBIN (BEAKER) (test code = 8.1 GM/DL 11.2-15.7 L 410) HEMATOCRIT (BEAKER) (test code = 25.0 % 34.1-44.9 L 411) MEAN CORPUSCULAR VOLUME (BEAKER) 92.3 fL 79.4-94.8 (test code = 753) MEAN CORPUSCULAR HEMOGLOBIN 29.9 pg 25.6-32.2 (BEAKER) (test code = 751) MEAN CORPUSCULAR HEMOGLOBIN CONC 32.4 GM/DL 32.2-35.5 (BEAKER) (test code = 752) RED CELL DISTRIBUTION WIDTH 14.8 % 11.7-14.4 H (BEAKER) (test code = 412) PLATELET COUNT (BEAKER) (test 240 K/CU MM 150-450 code = 756) MEAN PLATELET VOLUME (BEAKER) 12.4 fL 9.4-12.3 H (test code = 754) NUCLEATED RED BLOOD CELLS 0 /100 WBC 0-0 (BEAKER) (test code = 413) POCT-GLUCOSE [id number] 12:24:00 Test Item Value Reference Range Interpretation Comments POC-GLUCOSE METER 160 mg/dL 70-110 H : TESTED A T [facility] 6720 (BEAKER) (test code = CELINA JONES [place], 1538) [address]: Document Coordinator/Techni sharla ID = [id number] for SHAHRZAD AYERS CBC W/PLT COUNT & AUTO [id number] 07:10:00 Test Item Value Reference Range Interpretation Comments WHITE BLOOD CELL COUNT (BEAKER) 22.3 K/ L 3.5-10.5 H (test code = 775) RED BLOOD CELL COUNT (BEAKER) 2.09 M/ L 3.93-5.22 L (test code = 761) HEMOGLOBIN (BEAKER) (test code = 6.5 GM/DL 11.2-15.7 L 410) HEMATOCRIT (BEAKER) (test code = 19.5 % 34.1-44.9 L 411) MEAN CORPUSCULAR VOLUME (BEAKER) 93.3 fL 79.4-94.8 (test code = 753) MEAN CORPUSCULAR HEMOGLOBIN 31.1 pg 25.6-32.2 (BEAKER) (test code = 751) MEAN CORPUSCULAR HEMOGLOBIN CONC 33.3 GM/DL 32.2-35.5 (BEAKER) (test code = 752) RED CELL DISTRIBUTION WIDTH 14.5 % 11.7-14.4 H (BEAKER) (test code = 412) PLATELET COUNT (BEAKER) (test 214 K/CU MM 150-450 code = 756) MEAN PLATELET VOLUME (BEAKER) 12.6 fL 9.4-12.3 H (test code = 754) NUCLEATED RED BLOOD CELLS 0 /100 WBC 0-0 (BEAKER) (test code = 413) (CELLAVISION MANUAL DIFF)2019-06-06 07:10:00 Test Item Value Reference Range Interpretation Comments NEUTROPHILS - REL 85 % (CELLAVISION)(BEAKER) (test code = 2816) LYMPHOCYTES - REL 3 % (CELLAVISION)(BEAKER) (test code = 2817) MONOCYTES - REL 4 % (CELLAVISION)(BEAKER) (test code = 2818) METAMYELOCYTES - REL 1 % 0-0 H (CELLAVISION)(BEAKER) (test code = 2821) BANDS - REL (CELLAVISION)(BEAKER) 7 % 0-10 (test code = 2826) NEUTROPHILS - ABS 18.96 K/ul 1.56-6.13 H (CELLAVISION)(BEAKER) (test code = 2830) LYMPHOCYTES - ABS 0.67 K/ul 1.18-3.74 L (CELLAVISION)(BEAKER) (test code = 2831) MONOCYTES - ABS 0.89 K/uL 0.24-0.36 H (CELLAVISION)(BEAKER) (test code = 2832) METAMYELOCYTES - ABS 0.22 K/uL 0.00-0.00 H (CELLAVISION)(BEAKER) (test code = 2836) BANDS - ABS (CELLAVISION)(BEAKER) 1.56 K/uL 0.00-0.80 H (test code = 2840) TOTAL COUNTED (BEAKER) (test code 100 = 1351) WBC MORPHOLOGY (BEAKER) (test code Normal = 487) GIANT PLATELETS (BEAKER) (test Present code = 313) LARGE PLT(BEAKER) (test code = Present 2156) POLYCHROMATOPHILLIC RBCS(BEAKER) 1+ few (test code = 478) HYPOCHROMIA (BEAKER) (test code = 1+ few 963) ANISOCYTOSIS (BEAKER) (test code = 1+ few 961) MACROCYTES (BEAKER) (test code = 1+ few 964) POIKILOCYTES (BEAKER) (test code = 1+ few 966) OVALOCYTES (BEAKER) (test code = 1+ few 477) ARTIFACT (CELLAVISION)(BEAKER) Present (test code = 3432) PLATELET CONCENTRATION Adequate (CELLAVISION)(BEAKER) (test code = 3438) Document Coordinator ID - Juwan-Osvaldo Santos comments: Slide comments:RAD, CHEST, 1 VIEW, NON [id number] 07:06:00Reason for exam:->evaluate for pulmonary edemaShould this [...] MDReport Verified Date/Time: 06/06/2019 07:06:37 Reading Location: [address] Neuro Reading Room BASIC METABOLIC [id number] 04:12:00 Test Item Value Reference Range Interpretation Comments SODIUM (BEAKER) 140 meq/L 136-145 (test code = 381) POTASSIUM (BEAKER) 3.6 meq/L 3.5-5.1 (test code = 379) CHLORIDE (BEAKER) 106 meq/L 98-107 (test code = 382) CO2 (BEAKER) (test 26 meq/L 22-29 code = 355) BLOOD UREA NITROGEN 44 mg/dL 7-21 H (BEAKER) (test code = 354) CREATININE (BEAKER) 1.09 mg/dL 0.57-1.25 (test code = 358) GLUCOSE RANDOM 160 mg/dL 70-105 H (BEAKER) (test code = 652) CALCIUM (BEAKER) 7.5 mg/dL 8.4-10.2 L (test code = 697) EGFR (BEAKER) (test 48 mL/min/1.73 ESTIMA BLANCA GFR IS code = 1092) sq m NOT ACCURATE CREATININE CLEARANCE IN PREDICTING GLOMERULAR FILTRATION RATE . ESTIMATED GFR I S NOT APPLICABLE FOR DIALYSIS PATIEN TS. Document Coordinator ID - YOSSI [id number] 03:47:00 Test Item Value Reference Range Interpretation Comments PHOSPHORUS (BEAKER) (test code = 4.0 mg/dL 2.3-4.7 604) Document Coordinator ID - YOSSI [id number] 03:47:00 Test Item Value Reference Range Interpretation Comments MAGNESIUM (BEAKER) (test code = 2.3 mg/dL 1.6-2.6 627) Document Coordinator ID - YOSSI [id number] 03:47:00 Test Item Value Reference Range Interpretation Comments PROTIME (BEAKER) (test code = 15.9 seconds 11.9-14.2 H 759) INR (BEAKER) (test code = 370) 1.3 <=5.9 PARTIAL THROMBOPLASTIN TIME 29.7 seconds 22.5-36.0 (BEAKER) (test code = 760) Effective 08/27/2018: PT Reference Range ChangeNew: 11.9-14.2 Previous: 11.7- 14.7RECOMMENDED COUMADIN/WARFARIN INR THERAPY RANGESSTANDARD DOSE: 2.0-3.0 Includes: PROPHYLAXIS for venous thrombosis, systemic embolization; TREATMENT for venous thrombosis and/or pulmonary embolus.HIGH RISK: Target INR is2.5-3.5 for patients wiht mechanical heart valves.POCT-GLUCOSE [id number] 00:37:00 Test Item Value Reference Range Interpretation Comments POC-GLUCOSE METER 174 mg/dL 70-110 H : TESTED A T [facility] 6720 (BEAKER) (test code = CELINA [place]ON[place], 1538) [address]: Document Coordinator/Techni sharla ID = [id number] for [place] MS, [place] [id number] 20:33:00 Test Item Value Reference Range Interpretation Comments AMYLASE (BEAKER) (test 239 U/L 25-125 H Speci men slightly code = 349) hemolyzed Document Coordinator ID - JORDYN [id number] 20:33:00 Test Item Value Reference Range Interpretation Comments LIPASE (BEAKER) (test code = 749) 102 U/L 8-78 H Document Coordinator ID - JORDYN EBASIC METABOLIC [id number] 20:01:00 Test Item Value Reference Range Interpretation Comments SODIUM (BEAKER) 141 meq/L 136-145 (test code = 381) POTASSIUM (BEAKER) 3.7 meq/L 3.5-5.1 (test code = 379) CHLORIDE (BEAKER) 106 meq/L 98-107 (test code = 382) CO2 (BEAKER) (test 27 meq/L 22-29 code = 355) BLOOD UREA NITROGEN 42 mg/dL 7-21 H (BEAKER) (test code = 354) CREATININE (BEAKER) 1.12 mg/dL 0.57-1.25 (test code = 358) GLUCOSE RANDOM 192 mg/dL 70-105 H (BEAKER) (test code = 652) CALCIUM (BEAKER) 7.6 mg/dL 8.4-10.2 L (test code = 697) EGFR (BEAKER) (test 46 mL/min/1.73 ESTIMA BLANCA GFR IS code = 1092) sq m NOT ACCURATE CREATININE CLEARANCE IN PREDICTING GLOMERULAR FILTRATION RATE . ESTIMATED GFR I S NOT APPLICABLE FOR DIALYSIS PATIEN TS. Document Coordinator ID - JORDYN ERESPIRATORY PANEL [id number] 19:17:00 Test Item Value Reference Range Interpretation Comments HUMAN METAPNEUMOVIRUS Not detected Not detected, (BEAKER) (test code = 2683) Equivocal RHINOVIRUS (BEAKER) (test Not detected Not detected, code = 2684) Equivocal INFLUENZA A (BEAKER) (test Not detected Not detected, code = 2685) Equivocal INFLUENZA A (NO SUBTYPE) (test code = 3606) INFLUENZA A SUBTYPE H1 (BEAKER) (test code = 2686) INFLUENZA A SUBTYPE H3 (BEAKER) (test code = 2687) INFLUENZA A SUBTYPE H1-2009 (BEAKER) (test code = 3198) INFLUENZA B (BEAKER) (test Not detected Not detected, code = 2688) Equivocal RESPIRATORY SYNCYTIAL VIRUS Not detected Not detected, (BEAKER) (test code = 3199) Equivocal PARAINFLUENZA VIRUS 1 Not detected Not detected, (BEAKER) (test code = 2691) Equivocal PARAINFLUENZA VIRUS 2 Not detected Not detected, (BEAKER) (test code = 2692) Equivocal PARAINFLUENZA VIRUS 3 Not detected Not detected, (BEAKER) (test code = 2693) Equivocal PARAINFLUENZA VIRUS 4 Not detected Not detected, (BEAKER) (test code = 3200) Equivocal ADENOVIRUS (BEAKER) (test Not detected Not detected, code = 7191) Equivocal CORONAVIRUS 229E (BEAKER) Not detected Not detected, (test code = 3201) Equivocal CORONAVIRUS HKU1 (BEAKER) Not detected Not detected, (test code = 3202) Equivocal CORONAVIRUS NL63 (BEAKER) Not detected Not detected, (test code = 3203) Equivocal CORONAVIRUS OC43 (BEAKER) Not detected Not detected, (test code = 3204) Equivocal BORDETELLA PERTUSSIS Not detected Not detected, (BEAKER) (test code = 3205) Equivocal CHLAMYDOPHILA PNEUMONIAE Not detected Not detected, (BEAKER) (test code = 3206) Equivocal MYCOPLASMA PNEUMONIAE Not detected Not detected, (BEAKER) (test code = 3207) Equivocal Other viruses and bacteria not targeted by this PCR panel cannot be excluded; therefore clinical correlation and follow up of serology, culture results, and other molecular studies is required. The results are not intended to be used as the sole means for clinical diagnosis or patient management decisions. This sample was tested at the [facility] Molecular Diagnostics Laboratory using the Wo[employer].comArray Respiratory Panel. It is FDA cleared and has been verified and approved by the [facility] Molecular Diagnostics Laboratory for clinical use on nasopharyngeal swab specimens.The performance of the FilmArrayRP has not been established in individuals who received influenza vaccine. Recent administration ofa nasal influenza vaccine may cause false positive results for Influenza A and/orInfluenza B.RESPIRATORY PANEL [id number] 17:56:00 Test Item Value Reference Range Interpretation Comments HUMAN METAPNEUMOVIRUS Not detected Not detected, (BEAKER) (test code = 2683) Equivocal RHINOVIRUS (BEAKER) (test Not detected Not detected, code = 2684) Equivocal INFLUENZA A (BEAKER) (test Not detected Not detected, code = 2685) Equivocal INFLUENZA A (NO SUBTYPE) (test code = 3606) INFLUENZA A SUBTYPE H1 (BEAKER) (test code = 2686) INFLUENZA A SUBTYPE H3 (BEAKER) (test code = 2687) INFLUENZA A SUBTYPE H1-2009 (BEAKER) (test code = 3198) INFLUENZA B (BEAKER) (test Not detected Not detected, code = 2688) Equivocal RESPIRATORY SYNCYTIAL VIRUS Not detected Not detected, (BEAKER) (test code = 3199) Equivocal PARAINFLUENZA VIRUS 1 Not detected Not detected, (BEAKER) (test code = 2691) Equivocal PARAINFLUENZA VIRUS 2 Not detected Not detected, (BEAKER) (test code = 2692) Equivocal PARAINFLUENZA VIRUS 3 Not detected Not detected, (BEAKER) (test code = 2693) Equivocal PARAINFLUENZA VIRUS 4 Not detected Not detected, (BEAKER) (test code = 3200) Equivocal ADENOVIRUS (BEAKER) (test Not detected Not detected, code = 2694) Equivocal CORONAVIRUS 229E (BEAKER) Not detected Not detected, (test code = 3201) Equivocal CORONAVIRUS HKU1 (BEAKER) Not detected Not detected, (test code = 3202) Equivocal CORONAVIRUS NL63 (BEAKER) Not detected Not detected, (test code = 3203) Equivocal CORONAVIRUS OC43 (BEAKER) Not detected Not detected, (test code = 3204) Equivocal BORDETELLA PERTUSSIS Not detected Not detected, (BEAKER) (test code = 3205) Equivocal CHLAMYDOPHILA PNEUMONIAE Not detected Not detected, (BEAKER) (test code = 3206) Equivocal MYCOPLASMA PNEUMONIAE Not detected Not detected, (BEAKER) (test code = 3207) Equivocal Other viruses and bacteria not targeted by this PCR panel cannot be excluded; therefore clinical correlation and follow up of serology, culture results, and other molecular studies is required. The results are not intended to be used as the sole means for clinical diagnosis or patient management decisions. This sample was tested at the [facility] Molecular Diagnostics Laboratory using the Wooboard.comArray Respiratory Panel. It is FDA cleared and has been verified and approved by the [facility] Molecular Diagnostics Laboratory for clinical use on nasopharyngeal swab specimens.The performance of the FilmArrayRP has not been established in individuals who received influenza vaccine. Recent administration ofa nasal influenza vaccine may cause false positive results for Influenza A and/orInfluenza B.BASIC METABOLIC [id number] 16:34:00 Test Item Value Reference Range Interpretation Comments SODIUM (BEAKER) 140 meq/L 136-145 (test code = 381) POTASSIUM (BEAKER) 4.2 meq/L 3.5-5.1 Specimen slightly (test code = 379) hemolyzed CHLORIDE (BEAKER) 106 meq/L 98-107 (test code = 382) CO2 (BEAKER) (test 26 meq/L 22-29 code = 355) BLOOD UREA NITROGEN 40 mg/dL 7-21 H (BEAKER) (test code = 354) CREATININE (BEAKER) 1.12 mg/dL 0.57-1.25 Specimen slightly (test code = 358) hemolyzed GLUCOSE RANDOM 124 mg/dL 70-105 H (BEAKER) (test code = 652) CALCIUM (BEAKER) 8.2 mg/dL 8.4-10.2 L (test code = 697) EGFR (BEAKER) (test 46 mL/min/1.73 ESTIMA BLANCA GFR IS code = 1092) sq m NOT ACCURATE CREATININE CLEARANCE IN PREDICTING GLOMERULAR FILTRATION RATE . ESTIMATED GFR I S NOT APPLICABLE FOR DIALYSIS PATIEN TS. Document Coordinator ID - JORDYN GIORDANO INFLUENZA A&B [id number] 15:55:00 Test Item Value Reference Range Interpretation Comments RAPID INFLUENZA A AG (BEAKER) Negative Negative, Inconclusive (test code = 1622) RAPID INFLUENZA B AG (BEAKER) Negative Negative, Inconclusive (test code = 1623) CBC W/PLT COUNT & AUTO [id number] 13:43:00 Test Item Value Reference Range Interpretation Comments WHITE BLOOD CELL COUNT (BEAKER) 27.9 K/ L 3.5-10.5 H (test code = 775) RED BLOOD CELL COUNT (BEAKER) 2.43 M/ L 3.93-5.22 L (test code = 761) HEMOGLOBIN (BEAKER) (test code = 7.8 GM/DL 11.2-15.7 L 410) HEMATOCRIT (BEAKER) (test code = 23.9 % 34.1-44.9 L 411) MEAN CORPUSCULAR VOLUME (BEAKER) 98.4 fL 79.4-94.8 H (test code = 753) MEAN CORPUSCULAR HEMOGLOBIN 32.1 pg 25.6-32.2 (BEAKER) (test code = 751) MEAN CORPUSCULAR HEMOGLOBIN CONC 32.6 GM/DL 32.2-35.5 (BEAKER) (test code = 752) RED CELL DISTRIBUTION WIDTH 15.0 % 11.7-14.4 H (BEAKER) (test code = 412) PLATELET COUNT (BEAKER) (test 214 K/CU MM 150-450 code = 756) MEAN PLATELET VOLUME (BEAKER) 12.9 fL 9.4-12.3 H (test code = 754) NUCLEATED RED BLOOD CELLS 0 /100 WBC 0-0 (BEAKER) (test code = 413) POCT-GLUCOSE [id number] 13:40:00 Test Item Value Reference Range Interpretation Comments POC-GLUCOSE METER 170 mg/dL 70-110 H : TESTED A T [facility] 6720 (BEAKER) (test code = CELINA Partida [place], 1538) [address]: Document Coordinator/Techni sharla ID = [id number] for MICHELLE ALCALA BLOOD GAS, [id number] 13:21:00 Test Item Value Reference Range Interpretation Comments PH VENOUS (BEAKER) (test code = 7.33 7.32-7.42 701) PCO2 VENOUS (BEAKER) (test code = 50 mmHg 41-51 755) PO2 VENOUS (BEAKER) (test code = 42 mmHg 25-40 H 702) O2 SATURATION VENOUS (BEAKER) 72.6 % 40.0-70.0 H (test code = 703) HCO3 VENOUS (BEAKER) (test code = 26 mmol/L 21-29 705) BASE EXCESS VENOUS (BEAKER) (test -0.4 mmol/L -2.0-3.0 code = 704) PATIENT TEMPERATURE (BEAKER) 37.4 C (test code = 1818) FIO2 (BEAKER) (test code = 1819) 21.0 % TISSUE [id number] 11:49:00Surgical Pathology Report Case: [id number] Authorizing Provider: Mohsen Oro MD Collected: 05/25/2019 1124 Ordering Location: [facility] PERIOPERATIVE Received: 05/25/2019 1132 SERVICES [...] COLONIC TISSUE. Signing Pathologist Direct Phone Line: [phone] signed by Edward Iverson MD on 06/05/2019 at 11:49 [id number], [id number], [id number] and postop diagnosis: mass of colon. Procedure: [...] node displays a nodular, hemorrhagic cut surface. Adjunct Instructor In Economics sections aresubmitted.Multiple diverticula are identified throughout the specimen. Adjunct Instructor In Economics sections are submitted.Ink code:Blue-area per surgeon adhesed to pelvic wallSection code:A1, proximal margin A2, distal margin A3-A4, mesenteric margin, yellow machdao proximal, red machado distal A5, ovarian/adenxal marginA6-A7, contiguous section of lesion overlying ovary, full-thickness sectionA8-A9, contiguous full-thickness sections of hgjoqfT38, full-thickness section of rqwqefH84, full-thickness section of pbepqfB88, full-thickness section of tzumgdS30, proximal uninvolved ddgulK82, distal uninvolved vxveuF51, fulfillment representative section diverticulum A16, largest lymph node gftgcazykgczJ53, two possible lymph scydxD19, three possible lymph zrmnuH62, five possible lymph trtkmX59, six possible lymph nodesJP/ewAfter initial microscopic review, [...] blue and the specimen is radially sectioned. Adjunct Instructor In Economics sections are submitted in cassette B1. BRUNO /plShow and tell is requested by Dr. Oro. PART A1, INTRAOPERATIVE GROSS EXAM:COLON, RECTOSIGMOID, LOW ANTERIOR SECTION: - DISTAL MARGIN GROSSLY NEGATIVE FOR TUMORReported by Dr. Iverson to Dr. Oro at 11:47 a.m., on May 25, 2019.Performed.[facility], Department of Pathology,[address] [place] [address], [facility], [facility], [address] [place] [id number], [facility], [facility], [address] [place] [id number], VED, CHEST, 1 VIEW, NON DEPT 2019-06-05 08:40:00Reason [...] Stable surgical changes.Additional findings: None. Signed: Belinda Castanedaepjevon Verified Date/Time: 06/05/2019 08:40:29 Reading Location: [facility] Radiology Reading Room CBC W/PLT COUNT & AUTO [id number] 07:43:00 Test Item Value Reference Range Interpretation Comments WHITE BLOOD CELL COUNT 28.3 K/ L 3.5-10.5 H (BEAKER) (test code = 775) RED BLOOD CELL COUNT 2.40 M/ L 3.93-5.22 L (BEAKER) (test code = 761) HEMOGLOBIN (BEAKER) 7.4 GM/DL 11.2-15.7 L (test code = 410) HEMATOCRIT (BEAKER) 22.5 % 34.1-44.9 L (test code = 411) MEAN CORPUSCULAR 93.8 fL 79.4-94.8 Discordant MCV VOLUME (BEAKER) (test result s compared to code = 753) previous result s; clinical correl ation required. MEAN CORPUSCULAR 30.8 pg 25.6-32.2 HEMOGLOBIN (BEAKER) (test code = 751) MEAN CORPUSCULAR 32.9 GM/DL 32.2-35.5 HEMOGLOBIN CONC (BEAKER) (test code = 752) RED CELL DISTRIBUTION 14.5 % 11.7-14.4 H WIDTH (BEAKER) (test code = 412) PLATELET COUNT 191 K/CU MM 150-450 (BEAKER) (test code = 756) MEAN PLATELET VOLUME 12.9 fL 9.4-12.3 H (BEAKER) (test code = 754) NUCLEATED RED BLOOD 0 /100 WBC 0-0 CELLS (BEAKER) (test code = 413) (CELLAVISION MANUAL DIFF)2019-06-05 07:43:00 Test Item Value Reference Range Interpretation Comments NEUTROPHILS - REL 92 % (CELLAVISION)(BEAKER) (test code = 2816) LYMPHOCYTES - REL 1 % (CELLAVISION)(BEAKER) (test code = 2817) MONOCYTES - REL 3 % (CELLAVISION)(BEAKER) (test code = 2818) METAMYELOCYTES - REL 1 % 0-0 H (CELLAVISION)(BEAKER) (test code = 2821) BANDS - REL (CELLAVISION)(BEAKER) 3 % 0-10 (test code = 2826) NEUTROPHILS - ABS 26.04 K/ul 1.56-6.13 H (CELLAVISION)(BEAKER) (test code = 2830) LYMPHOCYTES - ABS 0.28 K/ul 1.18-3.74 L (CELLAVISION)(BEAKER) (test code = 2831) MONOCYTES - ABS 0.85 K/uL 0.24-0.36 H (CELLAVISION)(BEAKER) (test code = 2832) METAMYELOCYTES - ABS 0.28 K/uL 0.00-0.00 H (CELLAVISION)(BEAKER) (test code = 2836) BANDS - ABS (CELLAVISION)(BEAKER) 0.85 K/uL 0.00-0.80 H (test code = 2840) TOTAL COUNTED (BEAKER) (test code 100 = 1351) WBC MORPHOLOGY (BEAKER) (test code Normal = 487) PLT MORPHOLOGY (BEAKER) (test code Normal = 486) ANISOCYTOSIS (BEAKER) (test code = 1+ few 961) MICROCYTES (BEAKER) (test code = 1+ few 965) ARTIFACT (CELLAVISION)(BEAKER) Present (test code = 3432) PLATELET CONCENTRATION Adequate (CELLAVISION)(BEAKER) (test code = 3438) Document Coordinator ID - Rosario OverholtUser comments: Slide comments:[id number] 06:05:00 Test Item Value Reference Range Interpretation Comments PROTIME (BEAKER) (test code = 15.6 seconds 11.9-14.2 H 759) INR (BEAKER) (test code = 370) 1.3 <=5.9 PARTIAL THROMBOPLASTIN TIME 32.3 seconds 22.5-36.0 (BEAKER) (test code = 760) Effective 08/27/2018: PT Reference Range ChangeNew: 11.9-14.2 Previous: 11.7- 14.7RECOMMENDED COUMADIN/WARFARIN INR THERAPY RANGESSTANDARD DOSE: 2.0-3.0 Includes: PROPHYLAXIS for venous thrombosis, systemic embolization; TREATMENT for venous thrombosis and/or pulmonary embolus.HIGH RISK: Target INR is2.5-3.5 for patients wiht mechanical heart valves.BASIC METABOLIC [id number] 05:45:00 Test Item Value Reference Range Interpretation Comments SODIUM (BEAKER) 141 meq/L 136-145 (test code = 381) POTASSIUM (BEAKER) 3.4 meq/L 3.5-5.1 L (test code = 379) CHLORIDE (BEAKER) 103 meq/L 98-107 (test code = 382) CO2 (BEAKER) (test 31 meq/L 22-29 H code = 355) BLOOD UREA NITROGEN 39 mg/dL 7-21 H (BEAKER) (test code = 354) CREATININE (BEAKER) 1.08 mg/dL 0.57-1.25 (test code = 358) GLUCOSE RANDOM 134 mg/dL 70-105 H (BEAKER) (test code = 652) CALCIUM (BEAKER) 7.6 mg/dL 8.4-10.2 L (test code = 697) EGFR (BEAKER) (test 48 mL/min/1.73 ESTIMA BLANCA GFR IS code = 1092) sq m NOT ACCURATE CREATININE CLEARANCE IN PREDICTING GLOMERULAR FILTRATION RATE . ESTIMATED GFR I S NOT APPLICABLE FOR DIALYSIS PATIEN TS. Document Coordinator ID - YOSSI [id number] 05:20:00 Test Item Value Reference Range Interpretation Comments PHOSPHORUS (BEAKER) (test code = 3.5 mg/dL 2.3-4.7 604) Document Coordinator ID - YOSSI [id number] 05:20:00 Test Item Value Reference Range Interpretation Comments MAGNESIUM (BEAKER) (test code = 2.1 mg/dL 1.6-2.6 627) Document Coordinator ID - YOSSI [facility] (HEMOGRAM ONLY)2019-06-04 19:17:00 Test Item Value Reference Range Interpretation Comments WHITE BLOOD CELL COUNT (BEAKER) 28.7 K/ L 3.5-10.5 H (test code = 775) RED BLOOD CELL COUNT (BEAKER) 2.53 M/ L 3.93-5.22 L (test code = 761) HEMOGLOBIN (BEAKER) (test code = 8.2 GM/DL 11.2-15.7 L 410) HEMATOCRIT (BEAKER) (test code = 25.4 % 34.1-44.9 L 411) MEAN CORPUSCULAR VOLUME (BEAKER) 100.4 fL 79.4-94.8 H (test code = 753) MEAN CORPUSCULAR HEMOGLOBIN 32.4 pg 25.6-32.2 H (BEAKER) (test code = 751) MEAN CORPUSCULAR HEMOGLOBIN CONC 32.3 GM/DL 32.2-35.5 (BEAKER) (test code = 752) RED CELL DISTRIBUTION WIDTH 15.5 % 11.7-14.4 H (BEAKER) (test code = 412) PLATELET COUNT (BEAKER) (test 182 K/CU MM 150-450 code = 756) MEAN PLATELET VOLUME (BEAKER) 13.2 fL 9.4-12.3 H (test code = 754) NUCLEATED RED BLOOD CELLS 0 /100 WBC 0-0 (BEAKER) (test code = 413) BASIC METABOLIC [id number] 18:21:00 Test Item Value Reference Range Interpretation Comments SODIUM (BEAKER) 138 meq/L 136-145 (test code = 381) POTASSIUM (BEAKER) 3.7 meq/L 3.5-5.1 Specimen slightly (test code = 379) hemolyzed CHLORIDE (BEAKER) 100 meq/L 98-107 (test code = 382) CO2 (BEAKER) (test 28 meq/L 22-29 code = 355) BLOOD UREA NITROGEN 38 mg/dL 7-21 H (BEAKER) (test code = 354) CREATININE (BEAKER) 1.09 mg/dL 0.57-1.25 Specimen slightly (test code = 358) hemolyzed GLUCOSE RANDOM 157 mg/dL 70-105 H (BEAKER) (test code = 652) CALCIUM (BEAKER) 7.4 mg/dL 8.4-10.2 L (test code = 697) EGFR (BEAKER) (test 48 mL/min/1.73 ESTIMA BLANCA GFR IS code = 1092) sq m NOT ACCURATE CREATININE CLEARANCE IN PREDICTING GLOMERULAR FILTRATION RATE . ESTIMATED GFR I S NOT APPLICABLE FOR DIALYSIS PATIEN TS. Document Coordinator ID - BSURINALYSIS W/ REFLEX URINE [id number] 18:13:00 Test Item Value Reference Range Interpretation Comments COLOR (BEAKER) (test code = 470) Light Yellow CLARITY (BEAKER) (test code = Clear 469) SPECIFIC GRAVITY UA (BEAKER) 1.029 1.001-1.035 (test code = 468) PH UA (BEAKER) (test code = 467) 8.5 5.0-8.0 H PROTEIN UA (BEAKER) (test code = 70 mg/dL Negative A 464) GLUCOSE UA (BEAKER) (test code = Negative Negative 365) KETONES UA (BEAKER) (test code = Negative Negative 371) BILIRUBIN UA (BEAKER) (test code Negative Negative = 462) BLOOD UA (BEAKER) (test code = Moderate Negative A 461) NITRITE UA (BEAKER) (test code = Negative Negative 465) LEUKOCYTE ESTERASE UA (BEAKER) Negative Negative (test code = 466) UROBILINOGEN UA (BEAKER) (test 0.2 mg/dL 0.2-1.0 code = 463) RBC UA (BEAKER) (test code = 14 /HPF 519) WBC UA (BEAKER) (test code = 3 /HPF 520) BACTERIA (BEAKER) (test code = Rare 517) SQUAMOUS EPITHELIAL (BEAKER) < /HPF (test code = 516) SOURCE(BEAKER) (test code = 2794) Document Coordinator ID - [auto]Document Coordinator ID - techPOCT-GLUCOSE [id number] 17:31:00 Test Item Value Reference Range Interpretation Comments POC-GLUCOSE METER 131 mg/dL 70-110 H : TESTED A T [facility] 6720 (BEAKER) (test code = CELINA Partida [facility], 1538) [id number]: Document Coordinator/Techni sharla ID = [id number] for [place] WHITE CT, [id number] 17:08:00IV and PO contrastFINAL REPORT CT, CHEST, [...] lower lobe favored represent atelectasis. Scattered bilateral Rzaf-hx-yvszdjitvwrmxn airspace opacities predominantly in the right upper [...] attention on follow-up imaging. Signed: Lisa Page [facility] Verified Date/Time: 06/04/2019 17:08:30 CT, CHEST, WITH [id number] 17:08:00 Anesthesia:->NoneFINAL REPORT CT, CHEST, WITH CONTRAST, [...] lower lobe favored represent atelectasis. Scattered bilateral Ltbn-cl-illnznrohjritm airspace opacities predominantly in the right upper [...] attention on follow-up imaging. Signed: Lisa Page [facility] Verified Date/Time: 06/04/2019 17:08:30 BASI METABOLIC [id number] 15:26:00 Test Item Value Reference Range Interpretation Comments SODIUM (BEAKER) 144 meq/L 136-145 (test code = 381) POTASSIUM (BEAKER) 3.6 meq/L 3.5-5.1 (test code = 379) CHLORIDE (BEAKER) 103 meq/L 98-107 (test code = 382) CO2 (BEAKER) (test 35 meq/L 22-29 H code = 355) BLOOD UREA NITROGEN 37 mg/dL 7-21 H (BEAKER) (test code = 354) CREATININE (BEAKER) 1.18 mg/dL 0.57-1.25 (test code = 358) GLUCOSE RANDOM 140 mg/dL 70-105 H (BEAKER) (test code = 652) CALCIUM (BEAKER) 7.6 mg/dL 8.4-10.2 L (test code = 697) EGFR (BEAKER) (test 44 mL/min/1.73 ESTIMA BLANCA GFR IS code = 1092) sq m NOT ACCURATE CREATININE CLEARANCE IN PREDICTING GLOMERULAR FILTRATION RATE . ESTIMATED GFR I S NOT APPLICABLE FOR DIALYSIS PATIEN TS. Document Coordinator ID - AAHAMIDBASIC METABOLIC [id number] 13:54:00 Test Item Value Reference Range Interpretation Comments SODIUM (BEAKER) 132 meq/L 136-145 L (test code = 381) POTASSIUM (BEAKER) 6.5 meq/L 3.5-5.1 HH Specimen slightly (test code = 379) hemolyzed CHLORIDE (BEAKER) 94 meq/L 98-107 L (test code = 382) CO2 (BEAKER) (test 27 meq/L 22-29 code = 355) BLOOD UREA NITROGEN 34 mg/dL 7-21 H (BEAKER) (test code = 354) CREATININE (BEAKER) 1.47 mg/dL 0.57-1.25 H Specimen slightly (test code = 358) hemolyzed GLUCOSE RANDOM 785 mg/dL 70-105 HH (BEAKER) (test code = 652) CALCIUM (BEAKER) 6.9 mg/dL 8.4-10.2 L (test code = 697) EGFR (BEAKER) (test 34 mL/min/1.73 ESTIMA BLANCA GFR IS code = 1092) sq m NOT ACCURATE CREATININE CLEARANCE IN PREDICTING GLOMERULAR FILTRATION RATE . ESTIMATED GFR I S NOT APPLICABLE FOR DIALYSIS PATIEN TS. Document Coordinator ID - [id number] 13:48:00 Test Item Value Reference Range Interpretation Comments MAGNESIUM (BEAKER) 2.5 mg/dL 1.6-2.6 Specimen slightly (test code = 627) hemolyzed Document Coordinator ID - AAHAMIDPOCT-GLUCOSE [id number] 11:57:00 Test Item Value Reference Range Interpretation Comments POC-GLUCOSE METER 161 mg/dL 70-110 H : TESTED A T [facility] 6720 (BEAKER) (test code = [place], 1538) [id number]: Document Coordinator/Techni sharla ID = [id number] for LIN[place]N WHITE CBC (HEMOGRAM ONLY)2019-06-04 11:25:00 Test Item Value Reference Range Interpretation Comments WHITE BLOOD CELL COUNT (BEAKER) 27.8 K/ L 3.5-10.5 H (test code = 775) RED BLOOD CELL COUNT (BEAKER) 2.56 M/ L 3.93-5.22 L (test code = 761) HEMOGLOBIN (BEAKER) (test code = 8.2 GM/DL 11.2-15.7 L 410) HEMATOCRIT (BEAKER) (test code = 25.0 % 34.1-44.9 L 411) MEAN CORPUSCULAR VOLUME (BEAKER) 97.7 fL 79.4-94.8 H (test code = 753) MEAN CORPUSCULAR HEMOGLOBIN 32.0 pg 25.6-32.2 (BEAKER) (test code = 751) MEAN CORPUSCULAR HEMOGLOBIN CONC 32.8 GM/DL 32.2-35.5 (BEAKER) (test code = 752) RED CELL DISTRIBUTION WIDTH 14.8 % 11.7-14.4 H (BEAKER) (test code = 412) PLATELET COUNT (BEAKER) (test 195 K/CU MM 150-450 code = 756) MEAN PLATELET VOLUME (BEAKER) 12.7 fL 9.4-12.3 H (test code = 754) NUCLEATED RED BLOOD CELLS 0 /100 WBC 0-0 (BEAKER) (test code = 413) (CELLAVISION MANUAL DIFF)2019-06-04 07:47:00 Test Item Value Reference Range Interpretation Comments NEUTROPHILS - REL 94 % (CELLAVISION)(BEAKER) (test code = 2816) LYMPHOCYTES - REL 3 % (CELLAVISION)(BEAKER) (test code = 2817) MONOCYTES - REL 3 % (CELLAVISION)(BEAKER) (test code = 2818) NEUTROPHILS - ABS 22.94 K/ul 1.56-6.13 H (CELLAVISION)(BEAKER) (test code = 2830) LYMPHOCYTES - ABS 0.73 K/ul 1.18-3.74 L (CELLAVISION)(BEAKER) (test code = 2831) MONOCYTES - ABS 0.73 K/uL 0.24-0.36 H (CELLAVISION)(BEAKER) (test code = 2832) TOTAL COUNTED (BEAKER) (test code 100 = 1351) PLT MORPHOLOGY (BEAKER) (test code Normal = 486) TOXIC GRANULATION (BEAKER) (test Present code = 771) POLYCHROMATOPHILLIC RBCS(BEAKER) 1+ few (test code = 478) HYPOCHROMIA (BEAKER) (test code = 1+ few 963) MACROCYTES (BEAKER) (test code = 1+ few 964) ARTIFACT (CELLAVISION)(BEAKER) Present (test code = 3432) PLATELET CONCENTRATION Adequate (CELLAVISION)(BEAKER) (test code = 3438) Document Coordinator ID - [id number] ID - Yanet Mattalfredito comments: Slide comments:RAD, CHEST, 1 VIEW, NON [id number] 06:17:00Reason for exam:->evaluate for pulmonary edemaShould this [...] Gardner MDReport Verified Date/Time: 06/04/2019 06:17:19 POCT-GLUCOSE [id number] 06:13:00 Test Item Value Reference Range Interpretation Comments POC-GLUCOSE METER 160 mg/dL 70-110 H : TESTED A T [facility] 6720 (BEAKER) (test code = CELINA Partida [place], 1538) [address]: Document Coordinator/Techni sharla ID = [id number] for GB OBOH, OVIGUE BASIC METABOLIC [id number] 04:38:00 Test Item Value Reference Range Interpretation Comments SODIUM (BEAKER) 144 meq/L 136-145 (test code = 381) POTASSIUM (BEAKER) 3.1 meq/L 3.5-5.1 L (test code = 379) CHLORIDE (BEAKER) 98 meq/L 98-107 (test code = 382) CO2 (BEAKER) (test 39 meq/L 22-29 H code = 355) BLOOD UREA NITROGEN 37 mg/dL 7-21 H (BEAKER) (test code = 354) CREATININE (BEAKER) 1.20 mg/dL 0.57-1.25 (test code = 358) GLUCOSE RANDOM 173 mg/dL 70-105 H (BEAKER) (test code = 652) CALCIUM (BEAKER) 7.4 mg/dL 8.4-10.2 L (test code = 697) EGFR (BEAKER) (test 43 mL/min/1.73 ESTIMA BLANCA GFR IS code = 1092) sq m NOT ACCURATE CREATININE CLEARANCE IN PREDICTING GLOMERULAR FILTRATION RATE . ESTIMATED GFR I S NOT APPLICABLE FOR DIALYSIS PATIEN TS. Document Coordinator ID - AVERY [id number] 04:26:00 Test Item Value Reference Range Interpretation Comments PHOSPHORUS (BEAKER) (test code = 3.7 mg/dL 2.3-4.7 604) Document Coordinator ID - AVERY [id number] 04:26:00 Test Item Value Reference Range Interpretation Comments MAGNESIUM (BEAKER) (test code = 2.0 mg/dL 1.6-2.6 627) Document Coordinator ID - AVERY [id number] 04:19:00 Test Item Value Reference Range Interpretation Comments PROTIME (BEAKER) (test code = 15.3 seconds 11.9-14.2 H 759) INR (BEAKER) (test code = 370) 1.2 <=5.9 PARTIAL THROMBOPLASTIN TIME 28.8 seconds 22.5-36.0 (BEAKER) (test code = 760) Effective 08/27/2018: PT Reference Range ChangeNew: 11.9-14.2 Previous: 11.7- 14.7RECOMMENDED COUMADIN/WARFARIN INR THERAPY RANGESSTANDARD DOSE: 2.0-3.0 Includes: PROPHYLAXIS for venous thrombosis, systemic embolization; TREATMENT for venous thrombosis and/or pulmonary embolus.HIGH RISK: Target INR is2.5-3.5 for patients wiht mechanical heart valves.CBC W/PLT COUNT & AUTO [id number] 04:10:00 Test Item Value Reference Range Interpretation Comments WHITE BLOOD CELL COUNT (BEAKER) 24.1 K/ L 3.5-10.5 H (test code = 775) RED BLOOD CELL COUNT (BEAKER) 2.05 M/ L 3.93-5.22 L (test code = 761) HEMOGLOBIN (BEAKER) (test code = 6.3 GM/DL 11.2-15.7 L 410) HEMATOCRIT (BEAKER) (test code = 20.2 % 34.1-44.9 L 411) MEAN CORPUSCULAR VOLUME (BEAKER) 98.5 fL 79.4-94.8 H (test code = 753) MEAN CORPUSCULAR HEMOGLOBIN 30.7 pg 25.6-32.2 (BEAKER) (test code = 751) MEAN CORPUSCULAR HEMOGLOBIN CONC 31.2 GM/DL 32.2-35.5 L (BEAKER) (test code = 752) RED CELL DISTRIBUTION WIDTH 13.6 % 11.7-14.4 (BEAKER) (test code = 412) PLATELET COUNT (BEAKER) (test 176 K/CU MM 150-450 code = 756) MEAN PLATELET VOLUME (BEAKER) 13.1 fL 9.4-12.3 H (test code = 754) NUCLEATED RED BLOOD CELLS 0 /100 WBC 0-0 (BEAKER) (test code = 413) BASIC METABOLIC [id number] 19:15:00 Test Item Value Reference Range Interpretation Comments SODIUM (BEAKER) 145 meq/L 136-145 (test code = 381) POTASSIUM (BEAKER) 3.5 meq/L 3.5-5.1 (test code = 379) CHLORIDE (BEAKER) 97 meq/L 98-107 L (test code = 382) CO2 (BEAKER) (test 41 meq/L 22-29 HH code = 355) BLOOD UREA NITROGEN 36 mg/dL 7-21 H (BEAKER) (test code = 354) CREATININE (BEAKER) 1.16 mg/dL 0.57-1.25 (test code = 358) GLUCOSE RANDOM 170 mg/dL 70-105 H (BEAKER) (test code = 652) CALCIUM (BEAKER) 7.7 mg/dL 8.4-10.2 L (test code = 697) EGFR (BEAKER) (test 44 mL/min/1.73 ESTIMA BLANCA GFR IS code = 1092) sq m NOT ACCURATE CREATININE CLEARANCE IN PREDICTING GLOMERULAR FILTRATION RATE . ESTIMATED GFR I S NOT APPLICABLE FOR DIALYSIS PATIEN TS. Document Coordinator ID - [id number] 19:14:00 Test Item Value Reference Range Interpretation Comments PHOSPHORUS (BEAKER) (test code = 4.0 mg/dL 2.3-4.7 604) Document Coordinator ID - [id number] 19:14:00 Test Item Value Reference Range Interpretation Comments MAGNESIUM (BEAKER) (test code = 2.1 mg/dL 1.6-2.6 627) Document Coordinator ID - DBPOCT-GLUCOSE [id number] 18:38:00 Test Item Value Reference Range Interpretation Comments POC-GLUCOSE METER 160 mg/dL 70-110 H : TESTED A T [facility] 6720 (BEAKER) (test code = [place], 1538) [address]: Document Coordinator/Techni sharla ID = [id number] for SAMARA HUSTON BASIC METABOLIC [id number] 18:13:00 Test Item Value Reference Range Interpretation Comments SODIUM (BEAKER) 142 meq/L 136-145 (test code = 381) POTASSIUM (BEAKER) 5.4 meq/L 3.5-5.1 H Specimen moderately (test code = 379) hemolyzed CHLORIDE (BEAKER) 95 meq/L 98-107 L (test code = 382) CO2 (BEAKER) (test 39 meq/L 22-29 H code = 355) BLOOD UREA NITROGEN 33 mg/dL 7-21 H (BEAKER) (test code = 354) CREATININE (BEAKER) 1.28 mg/dL 0.57-1.25 H Specimen moderately (test code = 358) hemolyzed GLUCOSE RANDOM 567 mg/dL 70-105 HH (BEAKER) (test code = 652) CALCIUM (BEAKER) 7.5 mg/dL 8.4-10.2 L (test code = 697) EGFR (BEAKER) (test 40 mL/min/1.73 ESTIMA BLANCA GFR IS code = 1092) sq m NOT ACCURATE CREATININE CLEARANCE IN PREDICTING GLOMERULAR FILTRATION RATE . ESTIMATED GFR I S NOT APPLICABLE FOR DIALYSIS PATIEN TS. Document Coordinator ID - ROSCHARLESGBLOOD [id number] 18:01:00 Test Item Value Reference Range Interpretation Comments CULTURE (BEAKER) (test No growth in 5 days code = 1095) BLOOD [id number] 18:01:00 Test Item Value Reference Range Interpretation Comments CULTURE (BEAKER) (test No growth in 5 days code = 1095) URINALYSIS W/ REFLEX URINE [id number] 13:09:00 Test Item Value Reference Range Interpretation Comments COLOR (BEAKER) (test code = 470) Yellow CLARITY (BEAKER) (test code = 469) Hazy SPECIFIC GRAVITY UA (BEAKER) (test 1.015 1.001-1.035 code = 468) PH UA (BEAKER) (test code = 467) 6.5 5.0-8.0 PROTEIN UA (BEAKER) (test code = 100 mg/dL Negative A 464) GLUCOSE UA (BEAKER) (test code = 200 mg/dL Negative A 365) KETONES UA (BEAKER) (test code = Negative Negative 371) BILIRUBIN UA (BEAKER) (test code = Negative Negative 462) BLOOD UA (BEAKER) (test code = 461) Moderate Negative A NITRITE UA (BEAKER) (test code = Negative Negative 465) LEUKOCYTE ESTERASE UA (BEAKER) Negative Negative (test code = 466) UROBILINOGEN UA (BEAKER) (test code 0.2 mg/dL 0.2-1.0 = 463) RBC UA (BEAKER) (test code = 519) 3 /HPF WBC UA (BEAKER) (test code = 520) 3 /HPF SQUAMOUS EPITHELIAL (BEAKER) (test 1 /HPF code = 516) HYALINE CASTS (BEAKER) (test code = 1 /LPF 514) SOURCE(BEAKER) (test code = 5395) Document Coordinator ID - [auto]Document Coordinator ID - hankPOCT-GLUCOSE [id number] 12:43:00 Test Item Value Reference Range Interpretation Comments POC-GLUCOSE METER 229 mg/dL 70-110 H : TESTED A T [facility] 67[address] (BEAKER) (test code = [place], 1538) [address]: Document Coordinator/Techni sharla ID = [id number] for SAMARA HUSTON CBC W/PLT COUNT & AUTO [id number] 06:12:00 Test Item Value Reference Range Interpretation Comments WHITE BLOOD CELL COUNT (BEAKER) 20.8 K/ L 3.5-10.5 H (test code = 775) RED BLOOD CELL COUNT (BEAKER) 2.50 M/ L 3.93-5.22 L (test code = 761) HEMOGLOBIN (BEAKER) (test code = 7.6 GM/DL 11.2-15.7 L 410) HEMATOCRIT (BEAKER) (test code = 25.5 % 34.1-44.9 L 411) MEAN CORPUSCULAR VOLUME (BEAKER) 102.0 fL 79.4-94.8 H (test code = 753) MEAN CORPUSCULAR HEMOGLOBIN 30.4 pg 25.6-32.2 (BEAKER) (test code = 751) MEAN CORPUSCULAR HEMOGLOBIN CONC 29.8 GM/DL 32.2-35.5 L (BEAKER) (test code = 752) RED CELL DISTRIBUTION WIDTH 13.6 % 11.7-14.4 (BEAKER) (test code = 412) PLATELET COUNT (BEAKER) (test 235 K/CU MM 150-450 code = 756) MEAN PLATELET VOLUME (BEAKER) 12.6 fL 9.4-12.3 H (test code = 754) NUCLEATED RED BLOOD CELLS 0 /100 WBC 0-0 (BEAKER) (test code = 413) NEUTROPHILS RELATIVE PERCENT 85 % (BEAKER) (test code = 429) LYMPHOCYTES RELATIVE PERCENT 6 % (BEAKER) (test code = 430) MONOCYTES RELATIVE PERCENT 6 % (BEAKER) (test code = 431) EOSINOPHILS RELATIVE PERCENT 1 % (BEAKER) (test code = 432) BASOPHILS RELATIVE PERCENT 0 % (BEAKER) (test code = 437) NEUTROPHILS ABSOLUTE COUNT 17.69 K/ L 1.56-6.13 H (BEAKER) (test code = 670) LYMPHOCYTES ABSOLUTE COUNT 1.14 K/ L 1.18-3.74 L (BEAKER) (test code = 414) MONOCYTES ABSOLUTE COUNT (BEAKER) 1.18 K/ L 0.24-0.36 H (test code = 415) EOSINOPHILS ABSOLUTE COUNT 0.15 K/ L 0.04-0.36 (BEAKER) (test code = 416) BASOPHILS ABSOLUTE COUNT (BEAKER) 0.03 K/ L 0.01-0.08 (test code = 417) IMMATURE GRANULOCYTES-RELATIVE 3 % 0-1 H PERCENT (BEAKER) (test code = 2801) RAD, CHEST, 1 VIEW, NON [id number] 05:47:00Reason for exam:->evaluate for pulmonary edemaShould this [...] Stable contours. Additional findings: None. Signed: Chas Hidalgo MDReport Verified Date/Time: 06/03/2019 05:47:02 PT/APTT 2019-06-03 05:41:00 Test Item Value Reference Range Interpretation Comments PROTIME (BEAKER) (test code = 14.1 seconds 11.9-14.2 759) INR (BEAKER) (test code = 370) 1.1 <=5.9 PARTIAL THROMBOPLASTIN TIME 27.3 seconds 22.5-36.0 (BEAKER) (test code = 760) Effective 08/27/2018: PT Reference Range ChangeNew: 11.9-14.2 Previous: 11.7- 14.7RECOMMENDED COUMADIN/WARFARIN INR THERAPY RANGESSTANDARD DOSE: 2.0-3.0 Includes: PROPHYLAXIS for venous thrombosis, systemic embolization; TREATMENT for venous thrombosis and/or pulmonary embolus.HIGH RISK: Target INR is2.5-3.5 for patients wiht mechanical heart valves.BASIC METABOLIC [id number] 05:40:00 Test Item Value Reference Range Interpretation Comments SODIUM (BEAKER) 154 meq/L 136-145 H (test code = 381) POTASSIUM (BEAKER) 3.7 meq/L 3.5-5.1 Specimen slightly (test code = 379) hemolyzed CHLORIDE (BEAKER) 103 meq/L 98-107 (test code = 382) CO2 (BEAKER) (test 46 meq/L 22-29 HH code = 355) BLOOD UREA NITROGEN 29 mg/dL 7-21 H (BEAKER) (test code = 354) CREATININE (BEAKER) 1.01 mg/dL 0.57-1.25 Specimen slightly (test code = 358) hemolyzed GLUCOSE RANDOM 226 mg/dL 70-105 H (BEAKER) (test code = 652) CALCIUM (BEAKER) 8.1 mg/dL 8.4-10.2 L (test code = 697) EGFR (BEAKER) (test 52 mL/min/1.73 ESTIMA BLANCA GFR IS code = 1092) sq m NOT ACCURATE CREATININE CLEARANCE IN PREDICTING GLOMERULAR FILTRATION RATE . ESTIMATED GFR I S NOT APPLICABLE FOR DIALYSIS PATIEN TS. Document Coordinator ID Roderick VARELA [id number] 05:25:00 Test Item Value Reference Range Interpretation Comments MAGNESIUM (BEAKER) 2.0 mg/dL 1.6-2.6 Specimen slightly (test code = 627) hemolyzed Document Coordinator ID Roderick VARELA [id number] 05:25:00 Test Item Value Reference Range Interpretation Comments PHOSPHORUS (BEAKER) 3.4 mg/dL 2.3-4.7 Specimen slightly (test code = 604) hemolyzed Document Coordinator ID Roderick VARELA WBASIC METABOLIC [id number] 22:12:00 Test Item Value Reference Range Interpretation Comments SODIUM (BEAKER) 156 meq/L 136-145 H (test code = 381) POTASSIUM (BEAKER) 3.9 meq/L 3.5-5.1 (test code = 379) CHLORIDE (BEAKER) 104 meq/L 98-107 (test code = 382) CO2 (BEAKER) (test 46 meq/L 22-29 HH code = 355) BLOOD UREA NITROGEN 29 mg/dL 7-21 H (BEAKER) (test code = 354) CREATININE (BEAKER) 1.01 mg/dL 0.57-1.25 (test code = 358) GLUCOSE RANDOM 179 mg/dL 70-105 H (BEAKER) (test code = 652) CALCIUM (BEAKER) 8.1 mg/dL 8.4-10.2 L (test code = 697) EGFR (BEAKER) (test 52 mL/min/1.73 ESTIMA BLANCA GFR IS code = 1092) sq m NOT ACCURATE CREATININE CLEARANCE IN PREDICTING GLOMERULAR FILTRATION RATE . ESTIMATED GFR I S NOT APPLICABLE FOR DIALYSIS PATIEN TS. Document Coordinator ID - [id number] 21:51:00 Test Item Value Reference Range Interpretation Comments MAGNESIUM (BEAKER) (test code = 2.2 mg/dL 1.6-2.6 627) Document Coordinator ID - [id number] 21:51:00 Test Item Value Reference Range Interpretation Comments PHOSPHORUS (BEAKER) (test code = 3.2 mg/dL 2.3-4.7 604) Document Coordinator ID - BSCALCIUM, [id number] 21:38:00 Test Item Value Reference Range Interpretation Comments CALCIUM IONIZED (BEAKER) (test 0.94 mmol/L 1.12-1.27 L code = 698) PH, BLOOD (BEAKER) (test code = 7.54 1810) POCT-GLUCOSE [id number] 18:01:00 Test Item Value Reference Range Interpretation Comments POC-GLUCOSE METER 165 mg/dL 70-110 H : TESTED A T BSC 6720 (BEAKER) (test code = CELINA Partida [facility], 1538) [address]: Document Coordinator/Techni sharla ID = [id number] for KEITH SINGH [id number] 17:56:00 Test Item Value Reference Range Interpretation Comments MAGNESIUM (BEAKER) 2.1 mg/dL 1.6-2.6 Specimen slightly (test code = 627) hemolyzed Document Coordinator ID - [id number] 17:56:00 Test Item Value Reference Range Interpretation Comments PHOSPHORUS (BEAKER) 3.7 mg/dL 2.3-4.7 Specimen slightly (test code = 604) hemolyzed Document Coordinator ID - BSBASIC METABOLIC [id number] 16:52:00 Test Item Value Reference Range Interpretation Comments SODIUM (BEAKER) 159 meq/L 136-145 H (test code = 381) POTASSIUM (BEAKER) 4.4 meq/L 3.5-5.1 Specimen slightly (test code = 379) hemolyzed CHLORIDE (BEAKER) 105 meq/L 98-107 (test code = 382) CO2 (BEAKER) (test 48 meq/L 22-29 HH code = 355) BLOOD UREA NITROGEN 31 mg/dL 7-21 H (BEAKER) (test code = 354) CREATININE (BEAKER) 0.99 mg/dL 0.57-1.25 Specimen slightly (test code = 358) hemolyzed GLUCOSE RANDOM 223 mg/dL 70-105 H (BEAKER) (test code = 652) CALCIUM (BEAKER) 8.2 mg/dL 8.4-10.2 L (test code = 697) EGFR (BEAKER) (test 53 mL/min/1.73 ESTIMA BLANCA GFR IS code = 1092) sq m NOT ACCURATE CREATININE CLEARANCE IN PREDICTING GLOMERULAR FILTRATION RATE . ESTIMATED GFR I S NOT APPLICABLE FOR DIALYSIS PATIEN TS. Document Coordinator ID - BSFL, UGI, AIR CONTRAST, WITH SMALL [id number] 12:53:00 Reason for exam:->obstructionFINAL REPORT Small bowel [...] MDReport Verified Date/Time: 06/02/2019 12:53:53 Reading Location: [facility] B1 [id number] Ortho Consult Reading Room BASIC METABOLIC [id number] 12:35:00 Test Item Value Reference Range Interpretation Comments SODIUM (BEAKER) 158 meq/L 136-145 H (test code = 381) POTASSIUM (BEAKER) 4.5 meq/L 3.5-5.1 (test code = 379) CHLORIDE (BEAKER) 105 meq/L 98-107 (test code = 382) CO2 (BEAKER) (test 47 meq/L 22-29 HH code = 355) BLOOD UREA NITROGEN 30 mg/dL 7-21 H (BEAKER) (test code = 354) CREATININE (BEAKER) 0.96 mg/dL 0.57-1.25 (test code = 358) GLUCOSE RANDOM 220 mg/dL 70-105 H (BEAKER) (test code = 652) CALCIUM (BEAKER) 8.5 mg/dL 8.4-10.2 (test code = 697) EGFR (BEAKER) (test 55 mL/min/1.73 ESTIMA BLANCA GFR IS code = 1092) sq m NOT ACCURATE CREATININE CLEARANCE IN PREDICTING GLOMERULAR FILTRATION RATE . ESTIMATED GFR I S NOT APPLICABLE FOR DIALYSIS PATIEN TS. Document Coordinator ID - NTPPOCT-GLUCOSE [id number] 12:01:00 Test Item Value Reference Range Interpretation Comments POC-GLUCOSE METER 197 mg/dL 70-110 H : [facility] T [facility] (test code = CELINA Partida [facility], 1538) [address]: Document Coordinator/Techni sharla ID = [id number] for AIMEE ZAMANKRISTIKEITH RAD, CHEST, 1 VIEW, NON [id number] 08:53:00Reason for exam:->evaluate for pulmonary edemaShould this [...] thepresence of sliding hiatal hernia. Signed: JR Pan Robert MDReport Verified Date/Time: 06/02/2019 08:53:36 Reading Location: [facility] C0[facility] Neuro Reading Room POCT- GLUCOSE [id number] 06:15:00 Test Item Value Reference Range Interpretation Comments POC-GLUCOSE METER 216 mg/dL 70-110 H : TESTED A T [facility] 6720 (BEAKER) (test code = CELINA JONES [place], 1538) [address]: Document Coordinator/Techni sharla ID = [id number] for PRETTY FRIEDMAN CBC W/PLT COUNT & AUTO [id number] 05:17:00 Test Item Value Reference Range Interpretation Comments WHITE BLOOD CELL COUNT 15.1 K/ L 3.5-10.5 H (BEAKER) (test code = 775) RED BLOOD CELL COUNT 2.47 M/ L 3.93-5.22 L (BEAKER) (test code = 761) HEMOGLOBIN (BEAKER) 7.8 GM/DL 11.2-15.7 L (test code = 410) HEMATOCRIT (BEAKER) 25.4 % 34.1-44.9 L (test code = 411) MEAN CORPUSCULAR 102.8 fL 79.4-94.8 H Discordant MCV VOLUME (BEAKER) (test result s compared to code = 753) previous result s; clinical correl ation required. MEAN CORPUSCULAR 31.6 pg 25.6-32.2 HEMOGLOBIN (BEAKER) (test code = 751) MEAN CORPUSCULAR 30.7 GM/DL 32.2-35.5 L HEMOGLOBIN CONC (BEAKER) (test code = 752) RED CELL DISTRIBUTION 13.1 % 11.7-14.4 WIDTH (BEAKER) (test code = 412) PLATELET COUNT 208 K/CU MM 150-450 (BEAKER) (test code = 756) MEAN PLATELET VOLUME 12.6 fL 9.4-12.3 H (BEAKER) (test code = 754) NUCLEATED RED BLOOD 0 /100 WBC 0-0 CELLS (BEAKER) (test code = 413) NEUTROPHILS RELATIVE 86 % PERCENT (BEAKER) (test code = 429) LYMPHOCYTES RELATIVE 4 % PERCENT (BEAKER) (test code = 430) MONOCYTES RELATIVE 7 % PERCENT (BEAKER) (test code = 431) EOSINOPHILS RELATIVE 0 % PERCENT (BEAKER) (test code = 432) BASOPHILS RELATIVE 0 % PERCENT (BEAKER) (test code = 437) NEUTROPHILS ABSOLUTE 12.96 K/ L 1.56-6.13 H COUNT (BEAKER) (test code = 670) LYMPHOCYTES ABSOLUTE 0.66 K/ L 1.18-3.74 L COUNT (BEAKER) (test code = 414) MONOCYTES ABSOLUTE 1.08 K/ L 0.24-0.36 H COUNT (BEAKER) (test code = 415) EOSINOPHILS ABSOLUTE 0.03 K/ L 0.04-0.36 L COUNT (BEAKER) (test code = 416) BASOPHILS ABSOLUTE 0.02 K/ L 0.01-0.08 COUNT (BEAKER) (test code = 417) IMMATURE 2 % 0-1 H GRANULOCYTES-RELATIVE PERCENT (BEAKER) (test code = 2801) BASIC METABOLIC [id number] 05:03:00 Test Item Value Reference Range Interpretation Comments SODIUM (BEAKER) 162 meq/L 136-145 HH (test code = 381) POTASSIUM (BEAKER) 3.2 meq/L 3.5-5.1 L (test code = 379) CHLORIDE (BEAKER) 107 meq/L 98-107 (test code = 382) CO2 (BEAKER) (test 49 meq/L 22-29 HH code = 355) BLOOD UREA NITROGEN 31 mg/dL 7-21 H (BEAKER) (test code = 354) CREATININE (BEAKER) 0.99 mg/dL 0.57-1.25 (test code = 358) GLUCOSE RANDOM 294 mg/dL 70-105 H (BEAKER) (test code = 652) CALCIUM (BEAKER) 8.5 mg/dL 8.4-10.2 (test code = 697) EGFR (BEAKER) (test 53 mL/min/1.73 ESTIMA BLANCA GFR IS code = 1092) sq m NOT ACCURATE CREATININE CLEARANCE IN PREDICTING GLOMERULAR FILTRATION RATE . ESTIMATED GFR I S NOT APPLICABLE FOR DIALYSIS PATIEN TS. Document Coordinator ID - AVERY [id number] 05:03:00 Test Item Value Reference Range Interpretation Comments PHOSPHORUS (BEAKER) (test code = 1.1 mg/dL 2.3-4.7 LL 604) Document Coordinator ID - AVERY [id number] 04:55:00 Test Item Value Reference Range Interpretation Comments MAGNESIUM (BEAKER) (test code = 2.1 mg/dL 1.6-2.6 627) Document Coordinator ID - AVERY [id number] 04:49:00 Test Item Value Reference Range Interpretation Comments PROTIME (BEAKER) (test code = 14.3 seconds 11.9-14.2 H 759) INR (BEAKER) (test code = 370) 1.1 <=5.9 PARTIAL THROMBOPLASTIN TIME 28.2 seconds 22.5-36.0 (BEAKER) (test code = 760) Effective 08/27/2018: PT Reference Range ChangeNew: 11.9-14.2 Previous: 11.7- 14.7RECOMMENDED COUMADIN/WARFARIN INR THERAPY RANGESSTANDARD DOSE: 2.0-3.0 Includes: PROPHYLAXIS for venous thrombosis, systemic embolization; TREATMENT for venous thrombosis and/or pulmonary embolus.HIGH RISK: Target INR is2.5-3.5 for patients wiht mechanical heart valves.POCT-GLUCOSE [id number] 00:15:00 Test Item Value Reference Range Interpretation Comments POC-GLUCOSE METER 224 mg/dL 70-110 H : TESTED A T [facility] (BEAKER) (test code = CELINA JONES [place], 1538) [address]: Document Coordinator/Techni sharla ID = [id number] for PRETTY FRIEDMAN BASIC METABOLIC [id number] 23:24:00 Test Item Value Reference Range Interpretation Comments SODIUM (BEAKER) 164 meq/L 136-145 HH (test code = 381) POTASSIUM (BEAKER) 3.0 meq/L 3.5-5.1 L (test code = 379) CHLORIDE (BEAKER) 108 meq/L 98-107 H (test code = 382) CO2 (BEAKER) (test 43 meq/L 22-29 HH code = 355) BLOOD UREA NITROGEN 32 mg/dL 7-21 H (BEAKER) (test code = 354) CREATININE (BEAKER) 1.00 mg/dL 0.57-1.25 (test code = 358) GLUCOSE RANDOM 225 mg/dL 70-105 H (BEAKER) (test code = 652) CALCIUM (BEAKER) 9.0 mg/dL 8.4-10.2 (test code = 697) EGFR (BEAKER) (test 53 mL/min/1.73 ESTIMA BLANCA GFR IS code = 1092) sq m NOT ACCURATE CREATININE CLEARANCE IN PREDICTING GLOMERULAR FILTRATION RATE . ESTIMATED GFR I S NOT APPLICABLE FOR DIALYSIS PATIEN TS. Document Coordinator ID - DBBASIC METABOLIC [id number] 16:27:00 Test Item Value Reference Range Interpretation Comments SODIUM (BEAKER) 158 meq/L 136-145 H (test code = 381) POTASSIUM (BEAKER) 3.5 meq/L 3.5-5.1 (test code = 379) CHLORIDE (BEAKER) 105 meq/L 98-107 (test code = 382) CO2 (BEAKER) (test 47 meq/L 22-29 HH code = 355) BLOOD UREA NITROGEN 33 mg/dL 7-21 H (BEAKER) (test code = 354) CREATININE (BEAKER) 1.00 mg/dL 0.57-1.25 (test code = 358) GLUCOSE RANDOM 166 mg/dL 70-105 H (BEAKER) (test code = 652) CALCIUM (BEAKER) 8.8 mg/dL 8.4-10.2 (test code = 697) EGFR (BEAKER) (test 53 mL/min/1.73 ESTIMA BLANCA GFR IS code = 1092) sq m NOT ACCURATE CREATININE CLEARANCE IN PREDICTING GLOMERULAR FILTRATION RATE . ESTIMATED GFR I S NOT APPLICABLE FOR DIALYSIS PATIEN TS. Document Coordinator ID - BSLACTIC ACID, [id number] 16:11:00 Test Item Value Reference Range Interpretation Comments LACTATE BLOOD VENOUS (2) (BEAKER) 0.7 mmol/L 0.5-2.2 (test code = 2872) Document Coordinator ID - BSPOCT-GLUCOSE [id number] 14:15:00 Test Item Value Reference Range Interpretation Comments POC-GLUCOSE METER 114 mg/dL 70-110 H : TESTED A T [facility] 6720 (BEAKER) (test code = CELINA JONES [place], 1538) [address]: Document Coordinator/Techni sharla ID = [id number] for LINCOLN WHITE BASIC METABOLIC [id number] 05:50:00 Test Item Value Reference Range Interpretation Comments SODIUM (BEAKER) 159 meq/L 136-145 H (test code = 381) POTASSIUM (BEAKER) 3.5 meq/L 3.5-5.1 (test code = 379) CHLORIDE (BEAKER) 106 meq/L 98-107 (test code = 382) CO2 (BEAKER) (test 48 meq/L 22-29 HH code = 355) BLOOD UREA NITROGEN 37 mg/dL 7-21 H (BEAKER) (test code = 354) CREATININE (BEAKER) 1.04 mg/dL 0.57-1.25 (test code = 358) GLUCOSE RANDOM 191 mg/dL 70-105 H (BEAKER) (test code = 652) CALCIUM (BEAKER) 9.2 mg/dL 8.4-10.2 (test code = 697) EGFR (BEAKER) (test 50 mL/min/1.73 ESTIMA BLANCA GFR IS code = 1092) sq m NOT ACCURATE CREATININE CLEARANCE IN PREDICTING GLOMERULAR FILTRATION RATE . ESTIMATED GFR I S NOT APPLICABLE FOR DIALYSIS PATIEN TS. Document Coordinator ID - YOSSI [id number] 05:43:00 Test Item Value Reference Range Interpretation Comments PHOSPHORUS (BEAKER) (test code = 2.2 mg/dL 2.3-4.7 L 604) Document Coordinator ID - YOSSI [id number] 05:43:00 Test Item Value Reference Range Interpretation Comments MAGNESIUM (BEAKER) (test code = 2.1 mg/dL 1.6-2.6 627) Document Coordinator ID - YOSSI MCBC W/PLT COUNT & AUTO [id number] 05:17:00 Test Item Value Reference Range Interpretation Comments WHITE BLOOD CELL COUNT (BEAKER) 12.9 K/ L 3.5-10.5 H (test code = 775) RED BLOOD CELL COUNT (BEAKER) 2.60 M/ L 3.93-5.22 L (test code = 761) HEMOGLOBIN (BEAKER) (test code = 8.1 GM/DL 11.2-15.7 L 410) HEMATOCRIT (BEAKER) (test code = 25.6 % 34.1-44.9 L 411) MEAN CORPUSCULAR VOLUME (BEAKER) 98.5 fL 79.4-94.8 H (test code = 753) MEAN CORPUSCULAR HEMOGLOBIN 31.2 pg 25.6-32.2 (BEAKER) (test code = 751) MEAN CORPUSCULAR HEMOGLOBIN CONC 31.6 GM/DL 32.2-35.5 L (BEAKER) (test code = 752) RED CELL DISTRIBUTION WIDTH 13.1 % 11.7-14.4 (BEAKER) (test code = 412) PLATELET COUNT (BEAKER) (test 207 K/CU MM 150-450 code = 756) MEAN PLATELET VOLUME (BEAKER) 12.1 fL 9.4-12.3 (test code = 754) NUCLEATED RED BLOOD CELLS 0 /100 WBC 0-0 (BEAKER) (test code = 413) NEUTROPHILS RELATIVE PERCENT 84 % (BEAKER) (test code = 429) LYMPHOCYTES RELATIVE PERCENT 6 % (BEAKER) (test code = 430) MONOCYTES RELATIVE PERCENT 8 % (BEAKER) (test code = 431) EOSINOPHILS RELATIVE PERCENT 0 % (BEAKER) (test code = 432) BASOPHILS RELATIVE PERCENT 0 % (BEAKER) (test code = 437) NEUTROPHILS ABSOLUTE COUNT 10.85 K/ L 1.56-6.13 H (BEAKER) (test code = 670) LYMPHOCYTES ABSOLUTE COUNT 0.71 K/ L 1.18-3.74 L (BEAKER) (test code = 414) MONOCYTES ABSOLUTE COUNT (BEAKER) 0.97 K/ L 0.24-0.36 H (test code = 415) EOSINOPHILS ABSOLUTE COUNT 0.01 K/ L 0.04-0.36 L (BEAKER) (test code = 416) BASOPHILS ABSOLUTE COUNT (BEAKER) 0.02 K/ L 0.01-0.08 (test code = 417) IMMATURE GRANULOCYTES-RELATIVE 3 % 0-1 H PERCENT (BEAKER) (test code = 2801) [id number] 05:15:00 Test Item Value Reference Range Interpretation Comments PROTIME (BEAKER) (test code = 14.3 seconds 11.9-14.2 H 759) INR (BEAKER) (test code = 370) 1.1 <=5.9 PARTIAL THROMBOPLASTIN TIME 26.7 seconds 22.5-36.0 (BEAKER) (test code = 760) Effective 08/27/2018: PT Reference Range ChangeNew: 11.9-14.2 Previous: 11.7- 14.7RECOMMENDED COUMADIN/WARFARIN INR THERAPY RANGESSTANDARD DOSE: 2.0-3.0 Includes: PROPHYLAXIS for venous thrombosis, systemic embolization; TREATMENT for venous thrombosis and/or pulmonary embolus.HIGH RISK: Target INR is2.5-3.5 for patients wiht mechanical heart valves.RAD, CHEST, 1 VIEW, NON [id number] 04:37:00Reason for exam:->evaluate for pulmonary edemaShould this be performed at the bedside?->YesFINAL REPORT RAD, CHEST, 1 VIEW, NON DEPT INDICATION: evaluate for pulmonary edema COMPARISON: Prior day's exam FINDINGS: Portable frontal view of the chest. IMPRESSION: Support Lines: Stable. Lungs and pleura: Unchanged airspace and pleural opacities. No pneumothorax.Heart and mediastinum: Stable contours. Additional findings: None. Signed: Lisa Page Verified Date/Time: 06/01/2019 04:37:06 -GLUCOSE [id number] 00:38:00 Test Item Value Reference Range Interpretation Comments POC-GLUCOSE METER 139 mg/dL 70-110 H : TESTED A T [facility] 6720 (BEAKER) (test code = [facility], 1538) [address]: Document Coordinator/Techni sharla ID = [id number] for MOOK JARA POCT-GLUCOSE [id number] 18:44:00 Test Item Value Reference Range Interpretation Comments POC-GLUCOSE METER 84 mg/dL 70-110 : TESTED A T [facility] 6720 (BEAKER) (test code = [facility], 1538) [address]: Document Coordinator/Techni sharla ID = [id number] for KATIE BILLIGNS [id number] 14:05:00 Test Item Value Reference Range Interpretation Comments PHOSPHORUS (BEAKER) (test code = 2.0 mg/dL 2.3-4.7 L 604) Document Coordinator ID - GORDO [id number] 14:05:00 Test Item Value Reference Range Interpretation Comments MAGNESIUM (BEAKER) (test code = 2.1 mg/dL 1.6-2.6 627) Document Coordinator ID - GORDO CBASIC METABOLIC [id number] 14:05:00 Test Item Value Reference Range Interpretation Comments SODIUM (BEAKER) 154 meq/L 136-145 H (test code = 381) POTASSIUM (BEAKER) 3.8 meq/L 3.5-5.1 (test code = 379) CHLORIDE (BEAKER) 107 meq/L 98-107 (test code = 382) CO2 (BEAKER) (test 32 meq/L 22-29 H code = 355) BLOOD UREA NITROGEN 33 mg/dL 7-21 H (BEAKER) (test code = 354) CREATININE (BEAKER) 1.00 mg/dL 0.57-1.25 (test code = 358) GLUCOSE RANDOM 84 mg/dL 70-105 (BEAKER) (test code = 652) CALCIUM (BEAKER) 9.4 mg/dL 8.4-10.2 (test code = 697) EGFR (BEAKER) (test 53 mL/min/1.73 ESTIMA BLANCA GFR IS code = 1092) sq m NOT ACCURATE CREATININE CLEARANCE IN PREDICTING GLOMERULAR FILTRATION RATE . ESTIMATED GFR I S NOT APPLICABLE FOR DIALYSIS PATIEN TS. Document Coordinator ID - GORDO CPOCT-GLUCOSE [id number] 12:30:00 Test Item Value Reference Range Interpretation Comments POC-GLUCOSE METER 89 mg/dL 70-110 : TESTED A T [facility] 6720 (BEAKER) (test code = CELINA Partida [place], 1538) [address]: Document Coordinator/Techni sharla ID = [id number] for FERNANDEZ KATIE BERKOWITZ, CHEST, 1 VIEW, NON [id number] 10:13:00Reason for exam:->check picc placementShould this be performed at the bedside?->YesFINAL REPORT History: Pulmonary edema. FINDINGS: Compared with May 31, 2019, the heart and mediastinum are stable. As before, the heart is mildly enlarged. Uwjen-mr-kcxpzfkt bilateral pleural effusions persists. More focal opacity [...] probable moderate bilateral pleural effusions. Signed: Waleska Heaton MDReportVerified Date/Time: 05/31/2019 10:13:41 Reading Location: [facility] C013T Transitional Reading Room [id number] 08:56:00 Test Item Value Reference Range Interpretation Comments PREALBUMIN (BEAKER) (test code = 11 mg/dL 14-45 L 586) Document Coordinator ID - GORDO [id number] 07:54:00 Test Item Value Reference Range Interpretation Comments TRIGLYCERIDES (BEAKER) (test code = 105 mg/dL 540) TRIGLYCERIDE REFERENCE RANGELow Risk <150Borderline Risk 150-199High [...] chest. Mild lung edema persists. Signed: Waleska Heaton MDReport Verified Date/Time: 05/31/2019 07:25:27 Reading Location: [address] Transitional Reading Room BASIC METABOLIC [id number] 05:03:00 Test Item Value Reference Range Interpretation Comments SODIUM (BEAKER) 156 meq/L 136-145 H (test code = 381) POTASSIUM (BEAKER) 3.3 meq/L 3.5-5.1 L (test code = 379) CHLORIDE (BEAKER) 108 meq/L 98-107 H (test code = 382) CO2 (BEAKER) (test 37 meq/L 22-29 H code = 355) BLOOD UREA NITROGEN 34 mg/dL 7-21 H (BEAKER) (test code = 354) CREATININE (BEAKER) 1.08 mg/dL 0.57-1.25 (test code = 358) GLUCOSE RANDOM 100 mg/dL 70-105 (BEAKER) (test code = 652) CALCIUM (BEAKER) 9.6 mg/dL 8.4-10.2 (test code = 697) EGFR (BEAKER) (test 48 mL/min/1.73 ESTIMA BLANCA GFR IS code = 1092) sq m NOT ACCURATE CREATININE CLEARANCE IN PREDICTING GLOMERULAR FILTRATION RATE . ESTIMATED GFR I S NOT APPLICABLE FOR DIALYSIS PATIEN TS. Document Coordinator ID - YOSSI [id number] 05:01:00 Test Item Value Reference Range Interpretation Comments PHOSPHORUS (BEAKER) (test code = 2.6 mg/dL 2.3-4.7 604) Document Coordinator ID - YOSSI [id number] 05:01:00 Test Item Value Reference Range Interpretation Comments MAGNESIUM (BEAKER) (test code = 2.0 mg/dL 1.6-2.6 627) Document Coordinator ID - YOSSI MCBC W/PLT COUNT & AUTO [id number] 04:54:00 Test Item Value Reference Range Interpretation Comments WHITE BLOOD CELL COUNT (BEAKER) 11.4 K/ L 3.5-10.5 H (test code = 775) RED BLOOD CELL COUNT (BEAKER) 2.71 M/ L 3.93-5.22 L (test code = 761) HEMOGLOBIN (BEAKER) (test code = 8.4 GM/DL 11.2-15.7 L 410) HEMATOCRIT (BEAKER) (test code = 26.0 % 34.1-44.9 L 411) MEAN CORPUSCULAR VOLUME (BEAKER) 95.9 fL 79.4-94.8 H (test code = 753) MEAN CORPUSCULAR HEMOGLOBIN 31.0 pg 25.6-32.2 (BEAKER) (test code = 751) MEAN CORPUSCULAR HEMOGLOBIN CONC 32.3 GM/DL 32.2-35.5 (BEAKER) (test code = 752) RED CELL DISTRIBUTION WIDTH 13.2 % 11.7-14.4 (BEAKER) (test code = 412) PLATELET COUNT (BEAKER) (test 210 K/CU MM 150-450 code = 756) MEAN PLATELET VOLUME (BEAKER) 12.3 fL 9.4-12.3 (test code = 754) NUCLEATED RED BLOOD CELLS 0 /100 WBC 0-0 (BEAKER) (test code = 413) NEUTROPHILS RELATIVE PERCENT 84 % (BEAKER) (test code = 429) LYMPHOCYTES RELATIVE PERCENT 6 % (BEAKER) (test code = 430) MONOCYTES RELATIVE PERCENT 8 % (BEAKER) (test code = 431) EOSINOPHILS RELATIVE PERCENT 0 % (BEAKER) (test code = 432) BASOPHILS RELATIVE PERCENT 0 % (BEAKER) (test code = 437) NEUTROPHILS ABSOLUTE COUNT 9.56 K/ L 1.56-6.13 H (BEAKER) (test code = 670) LYMPHOCYTES ABSOLUTE COUNT 0.70 K/ L 1.18-3.74 L (BEAKER) (test code = 414) MONOCYTES ABSOLUTE COUNT (BEAKER) 0.90 K/ L 0.24-0.36 H (test code = 415) EOSINOPHILS ABSOLUTE COUNT 0.01 K/ L 0.04-0.36 L (BEAKER) (test code = 416) BASOPHILS ABSOLUTE COUNT (BEAKER) 0.02 K/ L 0.01-0.08 (test code = 417) IMMATURE GRANULOCYTES-RELATIVE 1 % 0-1 PERCENT (BEAKER) (test code = 2801) [id number] 04:54:00 Test Item Value Reference Range Interpretation Comments PROTIME (BEAKER) (test code = 13.9 seconds 11.9-14.2 759) INR (BEAKER) (test code = 370) 1.1 <=5.9 PARTIAL THROMBOPLASTIN TIME 30.1 seconds 22.5-36.0 (BEAKER) (test code = 760) Effective 08/27/2018: PT Reference Range ChangeNew: 11.9-14.2 Previous: 11.7- 14.7RECOMMENDED COUMADIN/WARFARIN INR THERAPY RANGESSTANDARD DOSE: 2.0-3.0 Includes: PROPHYLAXIS for venous thrombosis, systemic embolization; TREATMENT for venous thrombosis and/or pulmonary embolus.HIGH RISK: Target INR is2.5-3.5 for patients wiht mechanical heart valves.POCT-GLUCOSE [id number] 22:18:00 Test Item Value Reference Range Interpretation Comments POC-GLUCOSE METER 91 mg/dL 70-110 : TESTED A T [facility] 6720 (Shoutly) (test code = CELINA [place], 1538) [address]: Document Coordinator/Techni sharla ID = [id number] for Margarita Casarez POCT-GLUCOSE [id number] 18:42:00 Test Item Value Reference Range Interpretation Comments POC-GLUCOSE METER 84 mg/dL 70-110 : TESTED A T [facility] 6720 (AFIA) (test code = CELINA Partida [facility], 1538) 53[address]: Document Coordinator/Techni sharla ID = [id number] for KATIE BILLINGS POCT-GLUCOSE [id number] 13:13:00 Test Item Value Reference Range Interpretation Comments POC-GLUCOSE METER 99 mg/dL 70-110 : TESTED A T [facility] (AFIA) (test code = CELINA Partida [facility], 1538) 84[address]: Document Coordinator/Techni sharla ID = [id number] for KATIE BILLINGS RAD, CHEST, 1 VIEW, NON [id number] 12:04:00Reason for exam:->evaluate for pulmonary edemaShould this be performed at the bedside?->YesFINAL REPORT Technique: Single view of the chest COMPARISON: 05/29/2019 FINDINGS: Increased interstitial markings bilateral may represent vascular congestion. Small to moderate pleural effusions, left greater than right. No pneumothorax. Interval placement of a nasogastric tube which projects below the diaphragm. Cardiac silhouette is prominent. No acute skeletal abnormality. Sig megan: Eric Snow MDReport Verified Date/Time: 05/30/2019 12:04:45 Reading Location: [address] Transitional Reading Room RAD, ABDOMEN/KUB, 1 VIEW [id number] 09:28:00Reason for exam:->evaluate bowel distension post NGT [...] of the abdomen performed yesterday. Signed: Waleska [place] Verified Date/Time: 05/30/2019 09:28:32 Reading Location: [facility] C013W Consult Reading Room [id number] 07:47:00 Test Item Value Reference Range Interpretation Comments PHOSPHORUS (BEAKER) (test code = 2.7 mg/dL 2.3-4.7 604) Document Coordinator ID - GORDO [id number] 07:47:00 Test Item Value Reference Range Interpretation Comments MAGNESIUM (BEAKER) (test code = 2.2 mg/dL 1.6-2.6 627) Document Coordinator ID - GORDO CBASIC METABOLIC [id number] 07:47:00 Test Item Value Reference Range Interpretation Comments SODIUM (BEAKER) 148 meq/L 136-145 H (test code = 381) POTASSIUM (BEAKER) 3.7 meq/L 3.5-5.1 (test code = 379) CHLORIDE (BEAKER) 109 meq/L 98-107 H (test code = 382) CO2 (BEAKER) (test 25 meq/L 22-29 code = 355) BLOOD UREA NITROGEN 30 mg/dL 7-21 H (BEAKER) (test code = 354) CREATININE (BEAKER) 1.08 mg/dL 0.57-1.25 (test code = 358) GLUCOSE RANDOM 98 mg/dL 70-105 (BEAKER) (test code = 652) CALCIUM (BEAKER) 9.6 mg/dL 8.4-10.2 (test code = 697) EGFR (BEAKER) (test 48 mL/min/1.73 ESTIMA BLANCA GFR IS code = 1092) sq m NOT ACCURATE CREATININE CLEARANCE IN PREDICTING GLOMERULAR FILTRATION RATE . ESTIMATED GFR I S NOT APPLICABLE FOR DIALYSIS PATIEN TS. Document Coordinator ID - APR [id number] 05:32:00 Test Item Value Reference Range Interpretation Comments PROTIME (BEAKER) (test code = 13.9 seconds 11.9-14.2 759) INR (BEAKER) (test code = 370) 1.1 <=5.9 PARTIAL THROMBOPLASTIN TIME 30.3 seconds 22.5-36.0 (BEAKER) (test code = 760) Effective 08/27/2018: PT Reference Range ChangeNew: 11.9-14.2 Previous: 11.7- 14.7RECOMMENDED COUMADIN/WARFARIN INR THERAPY RANGESSTANDARD DOSE: 2.0-3.0 Includes: PROPHYLAXIS for venous thrombosis, systemic embolization; TREATMENT for venous thrombosis and/or pulmonary embolus.HIGH RISK: Target INR is2.5-3.5 for patients wiht mechanical heart valves.CBC W/PLT COUNT & AUTO [id number] 05:17:00 Test Item Value Reference Range Interpretation Comments WHITE BLOOD CELL COUNT (BEAKER) 12.6 K/ L 3.5-10.5 H (test code = 775) RED BLOOD CELL COUNT (BEAKER) 2.80 M/ L 3.93-5.22 L (test code = 761) HEMOGLOBIN (BEAKER) (test code = 8.9 GM/DL 11.2-15.7 L 410) HEMATOCRIT (BEAKER) (test code = 26.8 % 34.1-44.9 L 411) MEAN CORPUSCULAR VOLUME (BEAKER) 95.7 fL 79.4-94.8 H (test code = 753) MEAN CORPUSCULAR HEMOGLOBIN 31.8 pg 25.6-32.2 (BEAKER) (test code = 751) MEAN CORPUSCULAR HEMOGLOBIN CONC 33.2 GM/DL 32.2-35.5 (BEAKER) (test code = 752) RED CELL DISTRIBUTION WIDTH 13.2 % 11.7-14.4 (BEAKER) (test code = 412) PLATELET COUNT (BEAKER) (test 250 K/CU MM 150-450 code = 756) MEAN PLATELET VOLUME (BEAKER) 11.7 fL 9.4-12.3 (test code = 754) NUCLEATED RED BLOOD CELLS 0 /100 WBC 0-0 (BEAKER) (test code = 413) NEUTROPHILS RELATIVE PERCENT 86 % (BEAKER) (test code = 429) LYMPHOCYTES RELATIVE PERCENT 5 % (BEAKER) (test code = 430) MONOCYTES RELATIVE PERCENT 8 % (BEAKER) (test code = 431) EOSINOPHILS RELATIVE PERCENT 0 % (BEAKER) (test code = 432) BASOPHILS RELATIVE PERCENT 0 % (BEAKER) (test code = 437) NEUTROPHILS ABSOLUTE COUNT 10.85 K/ L 1.56-6.13 H (BEAKER) (test code = 670) LYMPHOCYTES ABSOLUTE COUNT 0.60 K/ L 1.18-3.74 L (BEAKER) (test code = 414) MONOCYTES ABSOLUTE COUNT (BEAKER) 1.02 K/ L 0.24-0.36 H (test code = 415) EOSINOPHILS ABSOLUTE COUNT 0.01 K/ L 0.04-0.36 L (BEAKER) (test code = 416) BASOPHILS ABSOLUTE COUNT (BEAKER) 0.03 K/ L 0.01-0.08 (test code = 417) IMMATURE GRANULOCYTES-RELATIVE 1 % 0-1 PERCENT (BEAKER) (test code = 2801) POCT-GLUCOSE [id number] 22:03:00 Test Item Value Reference Range Interpretation Comments POC-GLUCOSE METER 102 mg/dL 70-110 : TESTED A T [facility] 6720 (BEAKER) (test code = [facility], 1538) [id number]: Document Coordinator/Techni sharla ID = [id number] for Margarita Brizuela POCT-GLUCOSE [id number] 18:20:00 Test Item Value Reference Range Interpretation Comments POC-GLUCOSE METER 122 mg/dL 70-110 H : TESTED A T [facility] 6720 (BEAKER) (test code = [email or web address] [facility], 1538) [id number]: Document Coordinator/Techni sharla ID = [id number] for SAMARA HUSTON RAD, ABDOMEN/KUB, 1 VIEW [id number] 16:49:00Please note: per CT scan, partial stomach [...] Subcutaneous emphysema is again visualized. Signed: Bharti Neri Verified Date/Time: 05/29/2019 16:49:27 Reading Location: [address] Transitional Reading Room URINALYSIS W/ REFLEX URINE [id number] 15:22:00 Test Item Value Reference Range Interpretation Comments COLOR (BEAKER) (test code = 470) Yellow CLARITY (BEAKER) (test code = 469) Clear SPECIFIC GRAVITY UA (BEAKER) (test 1.041 1.001-1.035 H code = 468) PH UA (BEAKER) (test code = 467) 5.5 5.0-8.0 PROTEIN UA (BEAKER) (test code = 100 mg/dL Negative A 464) GLUCOSE UA (BEAKER) (test code = Negative Negative 365) KETONES UA (BEAKER) (test code = 80 mg/dL Negative A 371) BILIRUBIN UA (BEAKER) (test code = Negative Negative 462) BLOOD UA (BEAKER) (test code = Moderate Negative A 461) NITRITE UA (BEAKER) (test code = Negative Negative 465) LEUKOCYTE ESTERASE UA (BEAKER) Negative Negative (test code = 466) UROBILINOGEN UA (BEAKER) (test 0.2 mg/dL 0.2-1.0 code = 463) RBC UA (BEAKER) (test code = 519) 12 /HPF WBC UA (BEAKER) (test code = 520) 3 /HPF MUCUS (BEAKER) (test code = 1574) Occasional SQUAMOUS EPITHELIAL (BEAKER) (test 1 /HPF code = 516) SOURCE(BEAKER) (test code = 2795) Document Coordinator ID - [auto]Document Coordinator ID - techRAD, ABDOMEN/KUB, 1 VIEW [id number] 15:21:00Reason for exam:->NGT placementFINAL REPORT RAD, ABDOMEN/KUB, [...] at the time of dictation. Signed: JR Pan Robert MDReport V erified Date/Time: 05/29/2019 15:21:28 Reading Location: [facility] Radiology Reading Room VANCOMYCIN LEVEL, [id number] 13:13:00 Test Item Value Reference Range Interpretation Comments VANCOMYCIN TROUGH (AFIA) (test 11.1 ug/mL 10.0-20.0 code = 522) Document Coordinator ID - PIAYA LCT, CHEST WITH IV CONTRAST- PE TEST [id number] 12:56:00FINAL REPORT CT of the chest, pulmonary [...] MDReport Verified Date/Time: 05/29/2019 12:56:19 Reading Location: [address] Consult Reading Room CT, [id number] 12:56:00Rectal contrastFINAL REPORT CT of the chest, [...] or MRI when clinically appropriate. Signed: Bertram Umanzoreport Verified Date/Time: 05/29/2019 12:56:19 Reading Location: [address] Ortho Consult Reading Room POCT-GLUCOSE [id number] 12:43:00 Test Item Value Reference Range Interpretation Comments POC-GLUCOSE METER 104 mg/dL 70-110 : TESTED A T [facility] (test code = CELINA Partida [facility], 1538) [address]: Document Coordinator/Techni sharla ID = [id number] for SAMARA HUSTON BRONCHIAL CULTURE + GRAM [id number] 11:23:00 Test Item Value Reference Range Interpretation Comments CULTURE (BEAKER) (test code See comment = 1095) GRAM STAIN RESULT (BEAKER) 1+ WBCs (test code = 1123) GRAM STAIN RESULT (BEAKER) No organisms seen (test code = 77475) RAD, ABDOMEN/KUB, 1 VIEW [id number] 10:14:00Reason for exam:->evaluate for ileusFINAL REPORT Technique: [...] MDReport Verified Date/Time: 05/29/2019 10:14:44 Reading Location: [facility] C0[facility] [[email or web address]] Transitional Reading Room POCT-GLUCOSE [id number] 10:05:00 Test Item Value Reference Range Interpretation Comments POC-GLUCOSE METER 108 mg/dL 70-110 : TESTED A T [facility] 6720 (BEAKER) (test code = CELINA Partida [facility], 1538) [address]: Document Coordinator/Techni sharla ID = [id number] for SAMARA HUSTON TROPONIN [id number] 09:47:00 Test Item Value Reference Range Interpretation Comments TROPONIN I (BEAKER) (test code = 0.04 ng/mL 0.00-0.03 H 397) Troponin I (TnI) levels must be interpreted [...] failure, acidosis, acute neurological disease, and persistent tachyarrhythmia.Document Coordinator ID - PIAYA LRAD, CHEST, 1 VIEW, NON [id number] 07:41:00Reason for exam:->intubatedShould this be performed at [...] MDReport Verified Date/Time: 05/29/2019 07:41:28 Reading Location: [facility] Radiology Reading Room BLOOD GAS, [id number] 05:24:00 Test Item Value Reference Range Interpretation Comments PH VENOUS (BEAKER) (test code = 7.40 7.32-7.42 701) PCO2 VENOUS (BEAKER) (test code = 37 mmHg 41-51 L 755) PO2 VENOUS (BEAKER) (test code = 74 mmHg 25-40 H 702) O2 SATURATION VENOUS (BEAKER) 95.0 % 40.0-70.0 H (test code = 703) HCO3 VENOUS (BEAKER) (test code = 22 mmol/L 21-29 705) BASE EXCESS VENOUS (BEAKER) (test -2.0 mmol/L -2.0-3.0 code = 704) PATIENT TEMPERATURE (BEAKER) 37.0 C (test code = 1818) FIO2 (BEAKER) (test code = 1819) 100.0 % [id number] 04:54:00 Test Item Value Reference Range Interpretation Comments MAGNESIUM (BEAKER) 2.1 mg/dL 1.6-2.6 Specimen slightly (test code = 627) hemolyzed Document Coordinator ID - PIAYA [id number] 04:54:00 Test Item Value Reference Range Interpretation Comments PHOSPHORUS (BEAKER) 2.7 mg/dL 2.3-4.7 Specimen slightly (test code = 604) hemolyzed Document Coordinator ID - PIAYA LBASIC METABOLIC [id number] 04:54:00 Test Item Value Reference Range Interpretation Comments SODIUM (BEAKER) 143 meq/L 136-145 (test code = 381) POTASSIUM (BEAKER) 4.1 meq/L 3.5-5.1 Specimen slightly (test code = 379) hemolyzed CHLORIDE (BEAKER) 109 meq/L 98-107 H (test code = 382) CO2 (BEAKER) (test 21 meq/L 22-29 L code = 355) BLOOD UREA NITROGEN 21 mg/dL 7-21 (BEAKER) (test code = 354) CREATININE (BEAKER) 0.89 mg/dL 0.57-1.25 Specimen slightly (test code = 358) hemolyzed GLUCOSE RANDOM 105 mg/dL 70-105 (BEAKER) (test code = 652) CALCIUM (BEAKER) 9.5 mg/dL 8.4-10.2 (test code = 697) EGFR (BEAKER) (test 60 mL/min/1.73 ESTIMA BLANCA GFR IS code = 1092) sq m NOT ACCURATE CREATININE CLEARANCE IN PREDICTING GLOMERULAR FILTRATION RATE . ESTIMATED GFR I S NOT APPLICABLE FOR DIALYSIS PATIEN TS. Document Coordinator ID - PIAYA LCBC W/PLT COUNT & AUTO [id number] 04:39:00 Test Item Value Reference Range Interpretation Comments WHITE BLOOD CELL COUNT (BEAKER) 15.7 K/ L 3.5-10.5 H (test code = 775) RED BLOOD CELL COUNT (BEAKER) 2.96 M/ L 3.93-5.22 L (test code = 761) HEMOGLOBIN (BEAKER) (test code = 9.3 GM/DL 11.2-15.7 L 410) HEMATOCRIT (BEAKER) (test code = 28.8 % 34.1-44.9 L 411) MEAN CORPUSCULAR VOLUME (BEAKER) 97.3 fL 79.4-94.8 H (test code = 753) MEAN CORPUSCULAR HEMOGLOBIN 31.4 pg 25.6-32.2 (BEAKER) (test code = 751) MEAN CORPUSCULAR HEMOGLOBIN CONC 32.3 GM/DL 32.2-35.5 (BEAKER) (test code = 752) RED CELL DISTRIBUTION WIDTH 13.2 % 11.7-14.4 (BEAKER) (test code = 412) PLATELET COUNT (BEAKER) (test 159 K/CU MM 150-450 code = 756) MEAN PLATELET VOLUME (BEAKER) 12.5 fL 9.4-12.3 H (test code = 754) NUCLEATED RED BLOOD CELLS 0 /100 WBC 0-0 (BEAKER) (test code = 413) NEUTROPHILS RELATIVE PERCENT 93 % (BEAKER) (test code = 429) LYMPHOCYTES RELATIVE PERCENT 2 % (BEAKER) (test code = 430) MONOCYTES RELATIVE PERCENT 4 % (BEAKER) (test code = 431) EOSINOPHILS RELATIVE PERCENT 0 % (BEAKER) (test code = 432) BASOPHILS RELATIVE PERCENT 0 % (BEAKER) (test code = 437) NEUTROPHILS ABSOLUTE COUNT 14.50 K/ L 1.56-6.13 H (BEAKER) (test code = 670) LYMPHOCYTES ABSOLUTE COUNT 0.37 K/ L 1.18-3.74 L (BEAKER) (test code = 414) MONOCYTES ABSOLUTE COUNT (BEAKER) 0.64 K/ L 0.24-0.36 H (test code = 415) EOSINOPHILS ABSOLUTE COUNT 0.00 K/ L 0.04-0.36 L (BEAKER) (test code = 416) BASOPHILS ABSOLUTE COUNT (BEAKER) 0.03 K/ L 0.01-0.08 (test code = 417) IMMATURE GRANULOCYTES-RELATIVE 1 % 0-1 PERCENT (BEAKER) (test code = 2801) [id number] 04:37:00 Test Item Value Reference Range Interpretation Comments PROTIME (BEAKER) (test code = 14.0 seconds 11.9-14.2 759) INR (BEAKER) (test code = 370) 1.1 <=5.9 PARTIAL THROMBOPLASTIN TIME 33.1 seconds 22.5-36.0 (BEAKER) (test code = 760) Effective 08/27/2018: PT Reference Range ChangeNew: 11.9-14.2 Previous: 11.7- 14.7RECOMMENDED COUMADIN/WARFARIN INR THERAPY RANGESSTANDARD DOSE: 2.0-3.0 Includes: PROPHYLAXIS for venous thrombosis, systemic embolization; TREATMENT for venous thrombosis and/or pulmonary embolus.HIGH RISK: Target INR is2.5-3.5 for patients wiht mechanical heart valves.POCT-GLUCOSE [id number] 01:37:00 Test Item Value Reference Range Interpretation Comments POC-GLUCOSE METER 95 mg/dL 70-110 : TESTED A T [facility] 6720 ([place]) (test code = [facility], 1538) [address]: Document Coordinator/Techni sharla ID = [id number] for Giorgio Scott pate POCT-GLUCOSE [id number] 17:55:00 Test Item Value Reference Range Interpretation Comments POC-GLUCOSE METER 100 mg/dL 70-110 : TESTED A T [facility] 6720 ([place]) (test code = [facility], 1538) [address]: Document Coordinator/Techni sharla ID = [id number] for LINCOLN WHITE POCT-GLUCOSE [id number] 15:11:00 Test Item Value Reference Range Interpretation Comments POC-GLUCOSE METER 117 mg/dL 70-110 H : TESTED A T [facility] 6720 (BEAKER) (test code = [facility], 1538) [address]: Document Coordinator/Techni sharla ID = [id number] for LINCOLN WHITE POCT-GLUCOSE [id number] 11:56:00 Test Item Value Reference Range Interpretation Comments POC-GLUCOSE METER 63 mg/dL 70-110 L : TESTED A T [facility] 6720 (BEAKER) (test code = [facility], 1538) 25[address]: Document Coordinator/Techni sharla ID = [id number] for LINCOLN CEBALLOS POCT-GLUCOSE [id number] 09:28:00 Test Item Value Reference Range Interpretation Comments POC-GLUCOSE METER 66 mg/dL 70-110 L : TESTED A T [facility] 6720 (BEAKER) (test code = [facility], 1538) [address]: Document Coordinator/Techni sharla ID = [id number] for Scott Lafleur, CHEST, 1 VIEW, NON [id number] 08:47:00Reason for exam:- >intubatedShould this be performed at the bedside?->YesFINAL REPORT Comparison: 05/27/2019 TECHNIQUE: Single view of the chest FINDINGS: Interval removal of endotracheal tube and nasogastric tube. Left internal jugular central line isstable. Bilateral interstitial and airspace opacities and pleural effusions are stable. There is subcutaneous emphysema. Cardiac silhouette is enlarged. No acute skeletal abnormality. Signed: Eric Snow MDReptwo rivers [facility] Verified Date/Time: 05/28/2019 08:47:01 Reading Location: [facility] Radiology Reading Room [id number] 04:25:00 Test Item Value Reference Range Interpretation Comments PHOSPHORUS (BEAKER) (test code = 3.0 mg/dL 2.3-4.7 604) Document Coordinator ID - SHANON [id number] 04:25:00 Test Item Value Reference Range Interpretation Comments MAGNESIUM (BEAKER) (test code = 2.2 mg/dL 1.6-2.6 627) Document Coordinator ID - SHANON LBASIC METABOLIC [id number] 04:25:00 Test Item Value Reference Range Interpretation Comments SODIUM (BEAKER) 142 meq/L 136-145 (test code = 381) POTASSIUM (BEAKER) 4.0 meq/L 3.5-5.1 (test code = 379) CHLORIDE (BEAKER) 113 meq/L 98-107 H (test code = 382) CO2 (BEAKER) (test 22 meq/L 22-29 code = 355) BLOOD UREA NITROGEN 20 mg/dL 7-21 (BEAKER) (test code = 354) CREATININE (BEAKER) 0.76 mg/dL 0.57-1.25 (test code = 358) GLUCOSE RANDOM 68 mg/dL 70-105 L (BEAKER) (test code = 652) CALCIUM (BEAKER) 8.5 mg/dL 8.4-10.2 (test code = 697) EGFR (BEAKER) (test 72 mL/min/1.73 ESTIMA BLANCA GFR IS code = 1092) sq m NOT ACCURATE CREATININE CLEARANCE IN PREDICTING GLOMERULAR FILTRATION RATE . ESTIMATED GFR I S NOT APPLICABLE FOR DIALYSIS PATIEN TS. Document Coordinator ID - SHANON [id number] 04:25:00 Test Item Value Reference Range Interpretation Comments AMYLASE (BEAKER) (test code = 349) 146 U/L 25-125 H Document Coordinator ID - SHANON [id number] 04:25:00 Test Item Value Reference Range Interpretation Comments LIPASE (BEAKER) (test code = 749) 102 U/L 8-78 H Document Coordinator ID - SHANON [id number] 03:54:00 Test Item Value Reference Range Interpretation Comments PROTIME (BEAKER) (test code = 14.5 seconds 11.9-14.2 H 759) INR (BEAKER) (test code = 370) 1.2 <=5.9 PARTIAL THROMBOPLASTIN TIME 35.3 seconds 22.5-36.0 (BEAKER) (test code = 760) Effective 08/27/2018: PT Reference Range ChangeNew: 11.9-14.2 Previous: 11.7- 14.7RECOMMENDED COUMADIN/WARFARIN INR THERAPY RANGESSTANDARD DOSE: 2.0-3.0 Includes: PROPHYLAXIS for venous thrombosis, systemic embolization; TREATMENT for venous thrombosis and/or pulmonary embolus.HIGH RISK: Target INR is2.5-3.5 for patients wiht mechanical heart valves.CBC W/PLT COUNT & AUTO [id number] 03:54:00 Test Item Value Reference Range Interpretation Comments WHITE BLOOD CELL COUNT (BEAKER) 12.2 K/ L 3.5-10.5 H (test code = 775) RED BLOOD CELL COUNT (BEAKER) 2.66 M/ L 3.93-5.22 L (test code = 761) HEMOGLOBIN (BEAKER) (test code = 8.2 GM/DL 11.2-15.7 L 410) HEMATOCRIT (BEAKER) (test code = 25.9 % 34.1-44.9 L 411) MEAN CORPUSCULAR VOLUME (BEAKER) 97.4 fL 79.4-94.8 H (test code = 753) MEAN CORPUSCULAR HEMOGLOBIN 30.8 pg 25.6-32.2 (BEAKER) (test code = 751) MEAN CORPUSCULAR HEMOGLOBIN CONC 31.7 GM/DL 32.2-35.5 L (BEAKER) (test code = 752) RED CELL DISTRIBUTION WIDTH 13.2 % 11.7-14.4 (BEAKER) (test code = 412) PLATELET COUNT (BEAKER) (test 160 K/CU MM 150-450 code = 756) MEAN PLATELET VOLUME (BEAKER) 12.1 fL 9.4-12.3 (test code = 754) NUCLEATED RED BLOOD CELLS 0 /100 WBC 0-0 (BEAKER) (test code = 413) NEUTROPHILS RELATIVE PERCENT 88 % (BEAKER) (test code = 429) LYMPHOCYTES RELATIVE PERCENT 5 % (BEAKER) (test code = 430) MONOCYTES RELATIVE PERCENT 5 % (BEAKER) (test code = 431) EOSINOPHILS RELATIVE PERCENT 0 % (BEAKER) (test code = 432) BASOPHILS RELATIVE PERCENT 0 % (BEAKER) (test code = 437) NEUTROPHILS ABSOLUTE COUNT 10.75 K/ L 1.56-6.13 H (BEAKER) (test code = 670) LYMPHOCYTES ABSOLUTE COUNT 0.61 K/ L 1.18-3.74 L (BEAKER) (test code = 414) MONOCYTES ABSOLUTE COUNT (BEAKER) 0.66 K/ L 0.24-0.36 H (test code = 415) EOSINOPHILS ABSOLUTE COUNT 0.03 K/ L 0.04-0.36 L (BEAKER) (test code = 416) BASOPHILS ABSOLUTE COUNT (BEAKER) 0.04 K/ L 0.01-0.08 (test code = 417) IMMATURE GRANULOCYTES-RELATIVE 1 % 0-1 PERCENT (BEAKER) (test code = 2801) POCT-GLUCOSE [id number] 18:59:00 Test Item Value Reference Range Interpretation Comments POC-GLUCOSE METER 87 mg/dL 70-110 : TESTED A T [facility] 6720 (BEAKER) (test code = CELINA Partida [facility], 1538) [address]: Document Coordinator/Techni sharla ID = [id number] for NOEL WHITE CBC W/PLT COUNT & AUTO [id number] 12:08:00 Test Item Value Reference Range Interpretation Comments WHITE BLOOD CELL COUNT (BEAKER) 9.0 K/ L 3.5-10.5 (test code = 775) RED BLOOD CELL COUNT (BEAKER) 2.61 M/ L 3.93-5.22 L (test code = 761) HEMOGLOBIN (BEAKER) (test code = 8.0 GM/DL 11.2-15.7 L 410) HEMATOCRIT (BEAKER) (test code = 25.2 % 34.1-44.9 L 411) MEAN CORPUSCULAR VOLUME (BEAKER) 96.6 fL 79.4-94.8 H (test code = 753) MEAN CORPUSCULAR HEMOGLOBIN 30.7 pg 25.6-32.2 (BEAKER) (test code = 751) MEAN CORPUSCULAR HEMOGLOBIN CONC 31.7 GM/DL 32.2-35.5 L (BEAKER) (test code = 752) RED CELL DISTRIBUTION WIDTH 13.3 % 11.7-14.4 (BEAKER) (test code = 412) PLATELET COUNT (BEAKER) (test 174 K/CU MM 150-450 code = 756) MEAN PLATELET VOLUME (BEAKER) 11.5 fL 9.4-12.3 (test code = 754) NUCLEATED RED BLOOD CELLS 0 /100 WBC 0-0 (BEAKER) (test code = 413) NEUTROPHILS RELATIVE PERCENT 86 % (BEAKER) (test code = 429) LYMPHOCYTES RELATIVE PERCENT 6 % (BEAKER) (test code = 430) MONOCYTES RELATIVE PERCENT 7 % (BEAKER) (test code = 431) EOSINOPHILS RELATIVE PERCENT 0 % (BEAKER) (test code = 432) BASOPHILS RELATIVE PERCENT 0 % (BEAKER) (test code = 437) NEUTROPHILS ABSOLUTE COUNT 7.75 K/ L 1.56-6.13 H (BEAKER) (test code = 670) LYMPHOCYTES ABSOLUTE COUNT 0.52 K/ L 1.18-3.74 L (BEAKER) (test code = 414) MONOCYTES ABSOLUTE COUNT (BEAKER) 0.67 K/ L 0.24-0.36 H (test code = 415) EOSINOPHILS ABSOLUTE COUNT 0.01 K/ L 0.04-0.36 L (BEAKER) (test code = 416) BASOPHILS ABSOLUTE COUNT (BEAKER) 0.03 K/ L 0.01-0.08 (test code = 417) IMMATURE GRANULOCYTES-RELATIVE 1 % 0-1 PERCENT (BEAKER) (test code = 2801) POCT-GLUCOSE [id number] 12:03:00 Test Item Value Reference Range Interpretation Comments POC-GLUCOSE METER 77 mg/dL 70-110 : TESTED A T [facility] 6720 (BEAKER) (test code = CELINA Partida [facility], 1538) [address]: Document Coordinator/Techni sharla ID = [id number] for NOEL WHITE RAD, CHEST, 1 VIEW, NON [id number] 09:12:00Reason for exam:- >intubatedShould this be performed [...] MDReport Verified Date/Time: 05/27/2019 09:12:00 Reading Location: [facility] Radiology Reading Room POCT-GLUCOSE [id number] 06:00:00 Test Item Value Reference Range Interpretation Comments POC-GLUCOSE METER 83 mg/dL 70-110 : TESTED Carlos T [facility] 6720 (BEAKER) (test code = [place], 1538) [address]: Document Coordinator/Techni sharla ID = [id number] for CHRISTIANE ELLIS CBC W/PLT COUNT & AUTO [id number] 04:16:00 Test Item Value Reference Range Interpretation Comments WHITE BLOOD CELL COUNT (BEAKER) 10.1 K/ L 3.5-10.5 (test code = 775) RED BLOOD CELL COUNT (BEAKER) 2.38 M/ L 3.93-5.22 L (test code = 761) HEMOGLOBIN (BEAKER) (test code = 7.5 GM/DL 11.2-15.7 L 410) HEMATOCRIT (BEAKER) (test code = 23.2 % 34.1-44.9 L 411) MEAN CORPUSCULAR VOLUME (BEAKER) 97.5 fL 79.4-94.8 H (test code = 753) MEAN CORPUSCULAR HEMOGLOBIN 31.5 pg 25.6-32.2 (BEAKER) (test code = 751) MEAN CORPUSCULAR HEMOGLOBIN CONC 32.3 GM/DL 32.2-35.5 (BEAKER) (test code = 752) RED CELL DISTRIBUTION WIDTH 13.3 % 11.7-14.4 (BEAKER) (test code = 412) PLATELET COUNT (BEAKER) (test 192 K/CU MM 150-450 code = 756) MEAN PLATELET VOLUME (BEAKER) 12.0 fL 9.4-12.3 (test code = 754) NUCLEATED RED BLOOD CELLS 0 /100 WBC 0-0 (BEAKER) (test code = 413) NEUTROPHILS RELATIVE PERCENT 82 % (BEAKER) (test code = 429) LYMPHOCYTES RELATIVE PERCENT 10 % (BEAKER) (test code = 430) MONOCYTES RELATIVE PERCENT 7 % (BEAKER) (test code = 431) EOSINOPHILS RELATIVE PERCENT 0 % (BEAKER) (test code = 432) BASOPHILS RELATIVE PERCENT 0 % (BEAKER) (test code = 437) NEUTROPHILS ABSOLUTE COUNT 8.24 K/ L 1.56-6.13 H (BEAKER) (test code = 670) LYMPHOCYTES ABSOLUTE COUNT 1.04 K/ L 1.18-3.74 L (BEAKER) (test code = 414) MONOCYTES ABSOLUTE COUNT (BEAKER) 0.74 K/ L 0.24-0.36 H (test code = 415) EOSINOPHILS ABSOLUTE COUNT 0.01 K/ L 0.04-0.36 L (BEAKER) (test code = 416) BASOPHILS ABSOLUTE COUNT (BEAKER) 0.03 K/ L 0.01-0.08 (test code = 417) IMMATURE GRANULOCYTES-RELATIVE 0 % 0-1 PERCENT (BEAKER) (test code = 2801) [id number] 04:03:00 Test Item Value Reference Range Interpretation Comments PHOSPHORUS (BEAKER) (test code = 2.0 mg/dL 2.3-4.7 L 604) Document Coordinator ID - YOSSI [id number] 04:03:00 Test Item Value Reference Range Interpretation Comments MAGNESIUM (BEAKER) (test code = 1.9 mg/dL 1.6-2.6 627) Document Coordinator ID - YOSSI MBASIC METABOLIC [id number] 04:03:00 Test Item Value Reference Range Interpretation Comments SODIUM (BEAKER) 145 meq/L 136-145 (test code = 381) POTASSIUM (BEAKER) 3.8 meq/L 3.5-5.1 (test code = 379) CHLORIDE (BEAKER) 116 meq/L 98-107 H (test code = 382) CO2 (BEAKER) (test 25 meq/L 22-29 code = 355) BLOOD UREA NITROGEN 20 mg/dL 7-21 (BEAKER) (test code = 354) CREATININE (BEAKER) 0.82 mg/dL 0.57-1.25 (test code = 358) GLUCOSE RANDOM 94 mg/dL 70-105 (BEAKER) (test code = 652) CALCIUM (BEAKER) 8.4 mg/dL 8.4-10.2 (test code = 697) EGFR (BEAKER) (test 66 mL/min/1.73 ESTIMA BLANCA GFR IS code = 1092) sq m NOT ACCURATE CREATININE CLEARANCE IN PREDICTING GLOMERULAR FILTRATION RATE . ESTIMATED GFR I S NOT APPLICABLE FOR DIALYSIS PATIEN TS. Document Coordinator ID - YOSSI [id number] 03:54:00 Test Item Value Reference Range Interpretation Comments PROTIME (BEAKER) (test code = 15.3 seconds 11.9-14.2 H 759) INR (BEAKER) (test code = 370) 1.2 <=5.9 PARTIAL THROMBOPLASTIN TIME 33.3 seconds 22.5-36.0 (BEAKER) (test code = 760) Effective 08/27/2018: PT Reference Range ChangeNew: 11.9-14.2 Previous: 11.7- 14.7RECOMMENDED COUMADIN/WARFARIN INR THERAPY RANGESSTANDARD DOSE: 2.0-3.0 Includes: PROPHYLAXIS for venous thrombosis, systemic embolization; TREATMENT for venous thrombosis and/or pulmonary embolus.HIGH RISK: Target INR is2.5-3.5 for patients wiht mechanical heart valves.BLOOD GAS, [id number] 03:52:00 Test Item Value Reference Range Interpretation Comments PH VENOUS (BEAKER) (test code = 7.39 7.32-7.42 701) PCO2 VENOUS (BEAKER) (test code = 44 mmHg 41-51 755) PO2 VENOUS (BEAKER) (test code = 68 mmHg 25-40 H 702) O2 SATURATION VENOUS (BEAKER) 93.4 % 40.0-70.0 H (test code = 703) HCO3 VENOUS (BEAKER) (test code = 26 mmol/L 21-29 705) BASE EXCESS VENOUS (BEAKER) (test 0.8 mmol/L -2.0-3.0 code = 704) PATIENT TEMPERATURE (BEAKER) (test 37.0 C code = 1818) POCT-GLUCOSE [id number] 00:14:00 Test Item Value Reference Range Interpretation Comments POC-GLUCOSE METER 89 mg/dL 70-110 : TESTED A T [facility] 6720 (BEAKER) (test code = CELINA Partida [facility], 1538) [address]: Document Coordinator/Techni sharla ID = [id number] for GEOR[place]IA MCGILL [id number] 23:52:00 Test Item Value Reference Range Interpretation Comments PHOSPHORUS (BEAKER) (test code = 2.3 mg/dL 2.3-4.7 604) Document Coordinator ID - [id number] 23:52:00 Test Item Value Reference Range Interpretation Comments MAGNESIUM (BEAKER) (test code = 2.0 mg/dL 1.6-2.6 627) Document Coordinator ID - DBBASIC METABOLIC [id number] 23:52:00 Test Item Value Reference Range Interpretation Comments SODIUM (BEAKER) 144 meq/L 136-145 (test code = 381) POTASSIUM (BEAKER) 3.7 meq/L 3.5-5.1 (test code = 379) CHLORIDE (BEAKER) 116 meq/L 98-107 H (test code = 382) CO2 (BEAKER) (test 22 meq/L 22-29 code = 355) BLOOD UREA NITROGEN 20 mg/dL 7-21 (BEAKER) (test code = 354) CREATININE (BEAKER) 0.79 mg/dL 0.57-1.25 (test code = 358) GLUCOSE RANDOM 99 mg/dL 70-105 (BEAKER) (test code = 652) CALCIUM (BEAKER) 8.2 mg/dL 8.4-10.2 L (test code = 697) EGFR (BEAKER) (test 69 mL/min/1.73 ESTIMA BLANCA GFR IS code = 1092) sq m NOT ACCURATE CREATININE CLEARANCE IN PREDICTING GLOMERULAR FILTRATION RATE . ESTIMATED GFR I S NOT APPLICABLE FOR DIALYSIS PATIEN TS. Document Coordinator ID - DBHEMOGLOBIN AND [id number] 23:18:00 Test Item Value Reference Range Interpretation Comments HEMOGLOBIN (BEAKER) (test code = 7.7 GM/DL 11.2-15.7 L 410) HEMATOCRIT (BEAKER) (test code = 23.6 % 34.1-44.9 L 411) Document Coordinator ID - [id number], [id number] 23:09:00 Test Item Value Reference Range Interpretation Comments CALCIUM IONIZED (BEAKER) (test 1.17 mmol/L 1.12-1.27 code = 698) PH, BLOOD (BEAKER) (test code = 7.40 1810) POCT-GLUCOSE [id number] 18:40:00 Test Item Value Reference Range Interpretation Comments POC-GLUCOSE METER 92 mg/dL 70-110 : [facility] (BEAKER) (test code = [place], 1538) [address]: Document Coordinator/Techni sharla ID = [id number] for KATIE BILLINGS POCT-GLUCOSE [id number] 13:08:00 Test Item Value Reference Range Interpretation Comments POC-GLUCOSE METER 93 mg/dL 70-110 : [facility] (BEAKER) (test code = [place], 1538) [address]: Document Coordinator/Techni sharla ID = [id number] for KATIE BILLINGS RAD, CHEST, 1 VIEW, NON [id number] 10:19:00Reason for exam:- >intubatedShould this be performed [...] recent abdominal surgical intervention advised. Signed: JR Pan Robert MDReport Verified Date/Time: 05/26/2019 10:19:35 Reading Location: [facility] Room [id number] 03:59:00 Test Item Value Reference Range Interpretation Comments PHOSPHORUS (BEAKER) (test code = 3.7 mg/dL 2.3-4.7 604) Document Coordinator ID - YOSSI [id number] 03:59:00 Test Item Value Reference Range Interpretation Comments MAGNESIUM (BEAKER) (test code = 2.2 mg/dL 1.6-2.6 627) Document Coordinator ID - YOSSI MBASIC METABOLIC [id number] 03:59:00 Test Item Value Reference Range Interpretation Comments SODIUM (BEAKER) 146 meq/L 136-145 H (test code = 381) POTASSIUM (BEAKER) 4.0 meq/L 3.5-5.1 (test code = 379) CHLORIDE (BEAKER) 115 meq/L 98-107 H (test code = 382) CO2 (BEAKER) (test 23 meq/L 22-29 code = 355) BLOOD UREA NITROGEN 21 mg/dL 7-21 (BEAKER) (test code = 354) CREATININE (BEAKER) 0.80 mg/dL 0.57-1.25 (test code = 358) GLUCOSE RANDOM 113 mg/dL 70-105 H (BEAKER) (test code = 652) CALCIUM (BEAKER) 8.5 mg/dL 8.4-10.2 (test code = 697) EGFR (BEAKER) (test 68 mL/min/1.73 ESTIMA BLANCA GFR IS code = 1092) sq m NOT ACCURATE CREATININE CLEARANCE IN PREDICTING GLOMERULAR FILTRATION RATE . ESTIMATED GFR I S NOT APPLICABLE FOR DIALYSIS PATIEN TS. Document Coordinator ID - YOSSI [id number] 03:59:00 Test Item Value Reference Range Interpretation Comments AMYLASE (BEAKER) (test code = 349) 148 U/L 25-125 H Document Coordinator ID - YOSSI [id number] 03:59:00 Test Item Value Reference Range Interpretation Comments LIPASE (BEAKER) (test code = 749) 153 U/L 8-78 H Document Coordinator ID - YOSSI MTROPONIN [id number] 03:59:00 Test Item Value Reference Range Interpretation Comments TROPONIN I (BEAKER) (test code = 0.05 ng/mL 0.00-0.03 H 397) Troponin I (TnI) levels must be interpreted [...] failure, acidosis, acute neurological disease, and persistent tachyarrhythmia.Document Coordinator ID - YOSSI [id number] 03:52:00 Test Item Value Reference Range Interpretation Comments PROTIME (BEAKER) (test code = 14.4 seconds 11.9-14.2 H 759) INR (BEAKER) (test code = 370) 1.2 <=5.9 PARTIAL THROMBOPLASTIN TIME 27.5 seconds 22.5-36.0 (BEAKER) (test code = 760) Effective 08/27/2018: PT Reference Range ChangeNew: 11.9-14.2 Previous: 11.7- 14.7RECOMMENDED COUMADIN/WARFARIN INR THERAPY RANGESSTANDARD DOSE: 2.0-3.0 Includes: PROPHYLAXIS for venous thrombosis, systemic embolization; TREATMENT for venous thrombosis and/or pulmonary embolus.HIGH RISK: Target INR is2.5-3.5 for patients wiht mechanical heart valves.BLOOD GAS, [id number] 03:40:00 Test Item Value Reference Range Interpretation Comments PH ARTERIAL (BEAKER) (test code = 7.37 7.35-7.45 383) PCO2 ARTERIAL (BEAKER) (test code 44 mmHg 35-45 = 384) PO2 ARTERIAL (BEAKER) (test code 114 mmHg 80-90 H = 385) O2 SATURATION ARTERIAL (BEAKER) 98.1 % 96.0-97.0 H (test code = 386) HCO3 ARTERIAL (BEAKER) (test code 25 mmol/L 21-29 = 388) BASE EXCESS ARTERIAL (BEAKER) -0.7 mmol/L -2.0-3.0 (test code = 387) PATIENT TEMPERATURE (BEAKER) 36.5 C (test code = 1818) FIO2 (BEAKER) (test code = 1819) 60.0 % CBC W/PLT COUNT & AUTO [id number] 03:38:00 Test Item Value Reference Range Interpretation Comments WHITE BLOOD CELL COUNT (BEAKER) 7.9 K/ L 3.5-10.5 (test code = 775) RED BLOOD CELL COUNT (BEAKER) 2.88 M/ L 3.93-5.22 L (test code = 761) HEMOGLOBIN (BEAKER) (test code = 9.0 GM/DL 11.2-15.7 L 410) HEMATOCRIT (BEAKER) (test code = 27.9 % 34.1-44.9 L 411) MEAN CORPUSCULAR VOLUME (BEAKER) 96.9 fL 79.4-94.8 H (test code = 753) MEAN CORPUSCULAR HEMOGLOBIN 31.3 pg 25.6-32.2 (BEAKER) (test code = 751) MEAN CORPUSCULAR HEMOGLOBIN CONC 32.3 GM/DL 32.2-35.5 (BEAKER) (test code = 752) RED CELL DISTRIBUTION WIDTH 12.7 % 11.7-14.4 (BEAKER) (test code = 412) PLATELET COUNT (BEAKER) (test 191 K/CU MM 150-450 code = 756) MEAN PLATELET VOLUME (BEAKER) 11.6 fL 9.4-12.3 (test code = 754) NUCLEATED RED BLOOD CELLS 0 /100 WBC 0-0 (BEAKER) (test code = 413) NEUTROPHILS RELATIVE PERCENT 90 % (BEAKER) (test code = 429) LYMPHOCYTES RELATIVE PERCENT 7 % (BEAKER) (test code = 430) MONOCYTES RELATIVE PERCENT 4 % (BEAKER) (test code = 431) EOSINOPHILS RELATIVE PERCENT 0 % (BEAKER) (test code = 432) BASOPHILS RELATIVE PERCENT 0 % (BEAKER) (test code = 437) NEUTROPHILS ABSOLUTE COUNT 7.02 K/ L 1.56-6.13 H (BEAKER) (test code = 670) LYMPHOCYTES ABSOLUTE COUNT 0.51 K/ L 1.18-3.74 L (BEAKER) (test code = 414) MONOCYTES ABSOLUTE COUNT (BEAKER) 0.30 K/ L 0.24-0.36 (test code = 415) EOSINOPHILS ABSOLUTE COUNT 0.00 K/ L 0.04-0.36 L (BEAKER) (test code = 416) BASOPHILS ABSOLUTE COUNT (BEAKER) 0.01 K/ L 0.01-0.08 (test code = 417) IMMATURE GRANULOCYTES-RELATIVE 0 % 0-1 PERCENT (BEAKER) (test code = 2801) POCT-GLUCOSE [id number] 00:01:00 Test Item Value Reference Range Interpretation Comments POC-GLUCOSE METER 105 mg/dL 70-110 : TESTED A T [facility] 6720 (BEAKER) (test code = [place], 1538) [address]: Document Coordinator/Techni sharla ID = [id number] for Segundo Blevins [id number] 23:26:00 Test Item Value Reference Range Interpretation Comments PHOSPHORUS (BEAKER) (test code = 4.0 mg/dL 2.3-4.7 604) Document Coordinator ID - [id number] 23:26:00 Test Item Value Reference Range Interpretation Comments MAGNESIUM (BEAKER) (test code = 1.6 mg/dL 1.6-2.6 627) Document Coordinator ID - BSBASIC METABOLIC [id number] 23:26:00 Test Item Value Reference Range Interpretation Comments SODIUM (BEAKER) 146 meq/L 136-145 H (test code = 381) POTASSIUM (BEAKER) 3.8 meq/L 3.5-5.1 (test code = 379) CHLORIDE (BEAKER) 115 meq/L 98-107 H (test code = 382) CO2 (BEAKER) (test 23 meq/L 22-29 code = 355) BLOOD UREA NITROGEN 23 mg/dL 7-21 H (BEAKER) (test code = 354) CREATININE (BEAKER) 0.84 mg/dL 0.57-1.25 (test code = 358) GLUCOSE RANDOM 135 mg/dL 70-105 H (BEAKER) (test code = 652) CALCIUM (BEAKER) 8.4 mg/dL 8.4-10.2 (test code = 697) EGFR (BEAKER) (test 64 mL/min/1.73 ESTIMA BLANCA GFR IS code = 1092) sq m NOT ACCURATE CREATININE CLEARANCE IN PREDICTING GLOMERULAR FILTRATION RATE . ESTIMATED GFR I S NOT APPLICABLE FOR DIALYSIS PATIEN TS. Document Coordinator ID - BSLACTIC ACID, [id number] 23:23:00 Test Item Value Reference Range Interpretation Comments LACTATE BLOOD ARTERIAL (2) 0.8 mmol/L 0.5-2.2 (BEAKER) (test code = 2874) Document Coordinator ID - BSHEMOGLOBIN AND [id number] 23:05:00 Test Item Value Reference Range Interpretation Comments HEMOGLOBIN (BEAKER) (test code = 8.9 GM/DL 11.2-15.7 L 410) HEMATOCRIT (BEAKER) (test code = 27.0 % 34.1-44.9 L 411) Document Coordinator ID - [id number] GAS, [id number] 23:03:00 Test Item Value Reference Range Interpretation Comments PH ARTERIAL (BEAKER) (test code = 7.34 7.35-7.45 L 383) PCO2 ARTERIAL (BEAKER) (test code 45 mmHg 35-45 = 384) PO2 ARTERIAL (BEAKER) (test code 206 mmHg 80-90 H = 385) O2 SATURATION ARTERIAL (BEAKER) 99.3 % 96.0-97.0 H (test code = 386) HCO3 ARTERIAL (BEAKER) (test code 24 mmol/L 21-29 = 388) BASE EXCESS ARTERIAL (BEAKER) -2.0 mmol/L -2.0-3.0 (test code = 387) PATIENT TEMPERATURE (BEAKER) 36.5 C (test code = 1818) FIO2 (BEAKER) (test code = 1819) 60.0 % TROPONIN [id number] 19:33:00 Test Item Value Reference Range Interpretation Comments TROPONIN I (BEAKER) (test code = 0.04 ng/mL 0.00-0.03 H 397) Troponin I (TnI) levels must be interpreted [...] failure, acidosis, acute neurological disease, and persistent tachyarrhythmia.Document Coordinator ID - JORDYN EBASIC METABOLIC [id number] 19:25:00 Test Item Value Reference Range Interpretation Comments SODIUM (BEAKER) 146 meq/L 136-145 H (test code = 381) POTASSIUM (BEAKER) 3.8 meq/L 3.5-5.1 (test code = 379) CHLORIDE (BEAKER) 114 meq/L 98-107 H (test code = 382) CO2 (BEAKER) (test 21 meq/L 22-29 L code = 355) BLOOD UREA NITROGEN 23 mg/dL 7-21 H (BEAKER) (test code = 354) CREATININE (BEAKER) 1.06 mg/dL 0.57-1.25 (test code = 358) GLUCOSE RANDOM 164 mg/dL 70-105 H (BEAKER) (test code = 652) CALCIUM (BEAKER) 8.8 mg/dL 8.4-10.2 (test code = 697) EGFR (BEAKER) (test 49 mL/min/1.73 ESTIMA BLANCA GFR IS code = 1092) sq m NOT ACCURATE CREATININE CLEARANCE IN PREDICTING GLOMERULAR FILTRATION RATE . ESTIMATED GFR I S NOT APPLICABLE FOR DIALYSIS PATIEN TS. Document Coordinator ID - JORDYN [id number] 19:24:00 Test Item Value Reference Range Interpretation Comments MAGNESIUM (BEAKER) 1.5 mg/dL 1.6-2.6 L Specimen moderately (test code = 627) hemolyzed Document Coordinator ID - JORDYN [id number] 19:24:00 Test Item Value Reference Range Interpretation Comments PHOSPHORUS (BEAKER) 3.8 mg/dL 2.3-4.7 Specimen moderately (test code = 604) hemolyzed Document Coordinator ID - JORDYN EPROTHROMBIN [id number] 19:21:00 Test Item Value Reference Range Interpretation Comments PROTIME (BEAKER) (test code = 14.6 seconds 11.9-14.2 H 759) INR (BEAKER) (test code = 370) 1.2 <=5.9 Effective 08/27/2018: PT Reference Range ChangeNew: 11.9-14.2 Previous: 11.7- 14.7RECOMMENDED COUMADIN/WARFARIN INR THERAPY RANGESSTANDARD DOSE: 2.0-3.0 Includes: PROPHYLAXIS for venous thrombosis, systemic embolization; TREATMENT for venous thrombosis and/or pulmonary embolus.HIGH RISK: Target INR is2.5-3.5 for patients wiht mechanical heart valves.CBC (HEMOGRAM ONLY)[id number] 19:13:00 Test Item Value Reference Range Interpretation Comments WHITE BLOOD CELL COUNT (BEAKER) 14.0 K/ L 3.5-10.5 H (test code = 775) RED BLOOD CELL COUNT (BEAKER) 3.06 M/ L 3.93-5.22 L (test code = 761) HEMOGLOBIN (BEAKER) (test code = 9.6 GM/DL 11.2-15.7 L 410) HEMATOCRIT (BEAKER) (test code = 29.2 % 34.1-44.9 L 411) MEAN CORPUSCULAR VOLUME (BEAKER) 95.4 fL 79.4-94.8 H (test code = 753) MEAN CORPUSCULAR HEMOGLOBIN 31.4 pg 25.6-32.2 (BEAKER) (test code = 751) MEAN CORPUSCULAR HEMOGLOBIN CONC 32.9 GM/DL 32.2-35.5 (BEAKER) (test code = 752) RED CELL DISTRIBUTION WIDTH 12.6 % 11.7-14.4 (BEAKER) (test code = 412) PLATELET COUNT (BEAKER) (test 212 K/CU MM 150-450 code = 756) MEAN PLATELET VOLUME (BEAKER) 11.3 fL 9.4-12.3 (test code = 754) NUCLEATED RED BLOOD CELLS 0 /100 WBC 0-0 (BEAKER) (test code = 413) BLOOD GAS, [id number] 19:10:00 Test Item Value Reference Range Interpretation Comments PH ARTERIAL (BEAKER) (test code = 7.32 7.35-7.45 L 383) PCO2 ARTERIAL (BEAKER) (test code 45 mmHg 35-45 = 384) PO2 ARTERIAL (BEAKER) (test code 150 mmHg 80-90 H = 385) O2 SATURATION ARTERIAL (BEAKER) 98.8 % 96.0-97.0 H (test code = 386) HCO3 ARTERIAL (BEAKER) (test code 22 mmol/L 21-29 = 388) BASE EXCESS ARTERIAL (BEAKER) -3.8 mmol/L -2.0-3.0 L (test code = 387) PATIENT TEMPERATURE (BEAKER) 36.5 C (test code = 1818) FIO2 (BEAKER) (test code = 1819) 60.0 % BLOOD GAS, [id number] 17:31:00 Test Item Value Reference Range Interpretation Comments PH ARTERIAL (BEAKER) (test code = 7.31 7.35-7.45 L 383) PCO2 ARTERIAL (BEAKER) (test code 46 mmHg 35-45 H = 384) PO2 ARTERIAL (BEAKER) (test code 188 mmHg 80-90 H = 385) O2 SATURATION ARTERIAL (BEAKER) 99.2 % 96.0-97.0 H (test code = 386) HCO3 ARTERIAL (BEAKER) (test code 23 mmol/L 21-29 = 388) BASE EXCESS ARTERIAL (BEAKER) -3.8 mmol/L -2.0-3.0 L (test code = 387) PATIENT TEMPERATURE (BEAKER) 36.4 C (test code = 1818) FIO2 (BEAKER) (test code = 1819) 50.0 % RAD, CHEST, 1 VIEW, NON [id number] 16:26:00Reason for exam:->central line insertionShould this be [...] MDReport Verified Date/Time: 05/25/2019 16:26:34 Reading Location: [facility] Radiology Reading Room TROPONIN [id number] 15:47:00 Test Item Value Reference Range Interpretation Comments TROPONIN I (BEAKER) (test code = [...] failure, acidosis, acute neurological disease, and persistent tachyarrhythmia.Document Coordinator ID - JORDYN ECOMPREHENSIVE METABOLIC [id number] 15:41:00 Test Item Value Reference Range Interpretation Comments TOTAL PROTEIN 5.0 gm/dL 6.0-8.3 L Specimen moder ately (BEAKER) (test code = hemoly zed 770) ALBUMIN (BEAKER) 3.6 g/dL 3.5-5.0 Specimen mo derately (test code = 1145) hemolyzed ALKALINE PHOSPHATASE 38 U/L 40-150 L (BEAKER) (test code = 346) BILIRUBIN TOTAL 0.5 mg/dL 0.2-1.2 Specimen mod erately (BEAKER) (test code = hemoly zed 377) SODIUM (BEAKER) (test 147 meq/L 136-145 H code = 381) POTASSIUM (BEAKER) 3.6 meq/L 3.5-5.1 Specimen moderately (test code = 379) hemolyzed CHLORIDE (BEAKER) 113 meq/L 98-107 H (test code = 382) CO2 (BEAKER) (test 24 meq/L 22-29 code = 355) BLOOD UREA NITROGEN 24 mg/dL 7-21 H (BEAKER) (test code = 354) CREATININE (BEAKER) 1.35 mg/dL 0.57-1.25 H Specimen moderately (test code = 358) hemolyzed GLUCOSE RANDOM 127 mg/dL 70-105 H (BEAKER) (test code = 652) CALCIUM (BEAKER) 8.5 mg/dL 8.4-10.2 (test code = 697) AST (SGOT) (BEAKER) 16 U/L 5-34 Specimen moderately (test code = 353) hemolyzed ALT (SGPT) (BEAKER) 10 U/L 6-55 Specimen moderately (test code = 347) hemolyzed EGFR (BEAKER) (test 37 mL/min/1.73 ESTIMA BLANCA GFR IS code = 1092) sq m NOT ACCURATE CREATININE CLEARANCE IN PREDICTING GLOMERULAR FILTRATION RATE . ESTIMATED GFR I S NOT APPLICABLE FOR DIALYSIS PATIEN TS. Document Coordinator ID - JORDYN ECBC W/PLT COUNT & AUTO [id number] 15:23:00 Test Item Value Reference Range Interpretation Comments WHITE BLOOD CELL COUNT (BEAKER) 9.6 K/ L 3.5-10.5 (test code = 775) RED BLOOD CELL COUNT (BEAKER) 2.58 M/ L 3.93-5.22 L (test code = 761) HEMOGLOBIN (BEAKER) (test code = 8.0 GM/DL 11.2-15.7 L 410) HEMATOCRIT (BEAKER) (test code = 24.6 % 34.1-44.9 L 411) MEAN CORPUSCULAR VOLUME (BEAKER) 95.3 fL 79.4-94.8 H (test code = 753) MEAN CORPUSCULAR HEMOGLOBIN 31.0 pg 25.6-32.2 (BEAKER) (test code = 751) MEAN CORPUSCULAR HEMOGLOBIN CONC 32.5 GM/DL 32.2-35.5 (BEAKER) (test code = 752) RED CELL DISTRIBUTION WIDTH 12.4 % 11.7-14.4 (BEAKER) (test code = 412) PLATELET COUNT (BEAKER) (test 167 K/CU MM 150-450 code = 756) MEAN PLATELET VOLUME (BEAKER) 11.4 fL 9.4-12.3 (test code = 754) NUCLEATED RED BLOOD CELLS 0 /100 WBC 0-0 (BEAKER) (test code = 413) NEUTROPHILS RELATIVE PERCENT 92 % (BEAKER) (test code = 429) LYMPHOCYTES RELATIVE PERCENT 3 % (BEAKER) (test code = 430) MONOCYTES RELATIVE PERCENT 4 % (BEAKER) (test code = 431) EOSINOPHILS RELATIVE PERCENT 0 % (BEAKER) (test code = 432) BASOPHILS RELATIVE PERCENT 0 % (BEAKER) (test code = 437) NEUTROPHILS ABSOLUTE COUNT 8.84 K/ L 1.56-6.13 H (BEAKER) (test code = 670) LYMPHOCYTES ABSOLUTE COUNT 0.33 K/ L 1.18-3.74 L (BEAKER) (test code = 414) MONOCYTES ABSOLUTE COUNT (BEAKER) 0.38 K/ L 0.24-0.36 H (test code = 415) EOSINOPHILS ABSOLUTE COUNT 0.00 K/ L 0.04-0.36 L (BEAKER) (test code = 416) BASOPHILS ABSOLUTE COUNT (BEAKER) 0.02 K/ L 0.01-0.08 (test code = 417) IMMATURE GRANULOCYTES-RELATIVE 0 % 0-1 PERCENT (BEAKER) (test code = 2801) BLOOD GAS, [id number] 15:12:00 Test Item Value Reference Range Interpretation Comments PH ARTERIAL (BEAKER) (test code = 7.28 7.35-7.45 L 383) PCO2 ARTERIAL (BEAKER) (test code 54 mmHg 35-45 H = 384) PO2 ARTERIAL (BEAKER) (test code 166 mmHg 80-90 H = 385) O2 SATURATION ARTERIAL (BEAKER) 98.9 % 96.0-97.0 H (test code = 386) HCO3 ARTERIAL (BEAKER) (test code 25 mmol/L 21-29 = 388) BASE EXCESS ARTERIAL (BEAKER) -1.9 mmol/L -2.0-3.0 (test code = 387) PATIENT TEMPERATURE (BEAKER) 37.0 C (test code = 1818) FIO2 (BEAKER) (test code = 1819) 100.0 % POCT-GLUCOSE [id number] 14:47:00 Test Item Value Reference Range Interpretation Comments POC-GLUCOSE METER 116 mg/dL 70-110 H : Notified RN/MD: (BEAKER) (test code = TESTED AT [facility] 6202 [id number]) [facility], [address]: Document Coordinator/Techni sharla ID = [id number] for GUY PALMA BLOOD GAS, [id number] 14:39:00 Test Item Value Reference Range Interpretation Comments PH ARTERIAL (BEAKER) (test code = 7.27 7.35-7.45 L 383) PCO2 ARTERIAL (BEAKER) (test code 49 mmHg 35-45 H = 384) PO2 ARTERIAL (BEAKER) (test code 206 mmHg 80-90 H = 385) O2 SATURATION ARTERIAL (BEAKER) 99.3 % 96.0-97.0 H (test code = 386) HCO3 ARTERIAL (BEAKER) (test code 22 mmol/L 21-29 = 388) BASE EXCESS ARTERIAL (BEAKER) -4.9 mmol/L -2.0-3.0 L (test code = 387) PATIENT TEMPERATURE (BEAKER) 35.5 C (test code = 1818) FIO2 (BEAKER) (test code = 1819) 40.0 % CBC W/PLT COUNT & AUTO [id number] 14:20:00 Test Item Value Reference Range Interpretation Comments WHITE BLOOD CELL COUNT (BEAKER) 11.3 K/ L 3.5-10.5 H (test code = 775) RED BLOOD CELL COUNT (BEAKER) 2.60 M/ L 3.93-5.22 L (test code = 761) HEMOGLOBIN (BEAKER) (test code = 8.3 GM/DL 11.2-15.7 L 410) HEMATOCRIT (BEAKER) (test code = 25.1 % 34.1-44.9 L 411) MEAN CORPUSCULAR VOLUME (BEAKER) 96.5 fL 79.4-94.8 H (test code = 753) MEAN CORPUSCULAR HEMOGLOBIN 31.9 pg 25.6-32.2 (BEAKER) (test code = 751) MEAN CORPUSCULAR HEMOGLOBIN CONC 33.1 GM/DL 32.2-35.5 (BEAKER) (test code = 752) RED CELL DISTRIBUTION WIDTH 12.4 % 11.7-14.4 (BEAKER) (test code = 412) PLATELET COUNT (BEAKER) (test 156 K/CU MM 150-450 code = 756) MEAN PLATELET VOLUME (BEAKER) 10.5 fL 9.4-12.3 (test code = 754) NUCLEATED RED BLOOD CELLS 0 /100 WBC 0-0 (BEAKER) (test code = 413) NEUTROPHILS RELATIVE PERCENT 92 % (BEAKER) (test code = 429) LYMPHOCYTES RELATIVE PERCENT 4 % (BEAKER) (test code = 430) MONOCYTES RELATIVE PERCENT 3 % (BEAKER) (test code = 431) EOSINOPHILS RELATIVE PERCENT 0 % (BEAKER) (test code = 432) BASOPHILS RELATIVE PERCENT 0 % (BEAKER) (test code = 437) NEUTROPHILS ABSOLUTE COUNT 10.35 K/ L 1.56-6.13 H (BEAKER) (test code = 670) LYMPHOCYTES ABSOLUTE COUNT 0.48 K/ L 1.18-3.74 L (BEAKER) (test code = 414) MONOCYTES ABSOLUTE COUNT (BEAKER) 0.37 K/ L 0.24-0.36 H (test code = 415) EOSINOPHILS ABSOLUTE COUNT 0.01 K/ L 0.04-0.36 L (BEAKER) (test code = 416) BASOPHILS ABSOLUTE COUNT (BEAKER) 0.02 K/ L 0.01-0.08 (test code = 417) IMMATURE GRANULOCYTES-RELATIVE 0 % 0-1 PERCENT (BEAKER) (test code = 2801) BLOOD GAS, [id number] 12:07:00 Test Item Value Reference Range Interpretation Comments PH ARTERIAL (BEAKER) (test code = 7.33 7.35-7.45 L 383) PCO2 ARTERIAL (BEAKER) (test code 45 mmHg 35-45 = 384) PO2 ARTERIAL (BEAKER) (test code 197 mmHg 80-90 H = 385) O2 SATURATION ARTERIAL (BEAKER) 99.3 % 96.0-97.0 H (test code = 386) HCO3 ARTERIAL (BEAKER) (test code 24 mmol/L 21-29 = 388) BASE EXCESS ARTERIAL (BEAKER) -2.4 mmol/L -2.0-3.0 L (test code = 387) PATIENT TEMPERATURE (BEAKER) 37.0 C (test code = 1818) FIO2 (BEAKER) (test code = 1819) 50.0 % POTASSIUM-STAT [id number] 12:07:00 Test Item Value Reference Range Interpretation Comments POTASSIUM (BEAKER) (test code = 3.2 meq/L 3.6-5.5 L 379) GLUCOSE-STAT [id number] 12:07:00 Test Item Value Reference Range Interpretation Comments GLUCOSE RANDOM (BEAKER) (test code 148 mg/dL 70-110 H = 652) HGB/HCT (H&H) - STAT [id number] 12:07:00 Test Item Value Reference Range Interpretation Comments HEMOGLOBIN (BEAKER) (test code = 10.1 g/dL 12.0-15.0 L 410) HEMATOCRIT (BEAKER) (test code = 30.0 % 36.0-45.0 L 411) PH, [id number] 12:07:00 Test Item Value Reference Range Interpretation Comments PH ARTERIAL (BEAKER) (test code = 383) 7.33 7.35-7.45 L SODIUM NA-STAT [id number] 12:06:00 Test Item Value Reference Range Interpretation Comments SODIUM (BEAKER) (test code = 381) 143 meq/L 135-148 CALCIUM, [id number] 11:40:00 Test Item Value Reference Range Interpretation Comments CALCIUM IONIZED (BEAKER) (test 1.10 mmol/L 1.12-1.27 L code = 698) PH, BLOOD (BEAKER) (test code = 7.19 1810) CALCIUM, [id number] 11:37:00 Test Item Value Reference Range Interpretation Comments CALCIUM IONIZED (BEAKER) (test 1.10 mmol/L 1.12-1.27 L code = 698) PH, BLOOD (BEAKER) (test code = 7.19 1810) BLOOD GAS, [id number] 11:14:00 Test Item Value Reference Range Interpretation Comments PH ARTERIAL (BEAKER) (test code = 7.19 7.35-7.45 LL 383) PCO2 ARTERIAL (BEAKER) (test code 60 mmHg 35-45 H = 384) PO2 ARTERIAL (BEAKER) (test code 229 mmHg 80-90 H = 385) O2 SATURATION ARTERIAL (BEAKER) 99.3 % 96.0-97.0 H (test code = 386) HCO3 ARTERIAL (BEAKER) (test code 23 mmol/L 21-29 = 388) BASE EXCESS ARTERIAL (BEAKER) -6.1 mmol/L -2.0-3.0 L (test code = 387) PATIENT TEMPERATURE (BEAKER) 37.0 C (test code = 1818) FIO2 (BEAKER) (test code = 1819) 50.0 % PH, [id number] 11:13:00 Test Item Value Reference Range Interpretation Comments PH ARTERIAL (BEAKER) (test code = 383) 7.19 7.35-7.45 LL POTASSIUM-STAT [id number] 11:12:00 Test Item Value Reference Range Interpretation Comments POTASSIUM (BEAKER) (test code = 3.3 meq/L 3.6-5.5 L 379) GLUCOSE-STAT [id number] 11:12:00 Test Item Value Reference Range Interpretation Comments GLUCOSE RANDOM (BEAKER) (test code 130 mg/dL 70-110 H = 652) HGB/HCT (H&H) - STAT [id number] 11:12:00 Test Item Value Reference Range Interpretation Comments HEMOGLOBIN (BEAKER) (test code = 10.9 g/dL 12.0-15.0 L 410) HEMATOCRIT (BEAKER) (test code = 32.0 % 36.0-45.0 L 411) SODIUM NA-STAT [id number] 11:05:00 Test Item Value Reference Range Interpretation Comments SODIUM (BEAKER) (test code = 381) 140 meq/L 135-148 TISSUE [id number] 15:12:00Surgical Pathology Report Case: [id number] Authorizing Provider: Darwin Miles Collected: 05/07/2019 1442 MD Michelle Ordering Location: [facility] [place] Endoscopy Received: 05/08/2019 0821 Services Pathologist: Juanita Norman MD Specimen: Large Intestine, Colon - Left/Descending, biopsy of mass COLON, LEFT/DESCENDING, BIOPSIES OF MASS- COLON MUCOSA WITH LOW GRADE DYSPLASIA- see comment Signing Pathologist Dire ct Phone Line: [phone] signed by Juanita Norman MD on 05/12/2019 [...] could just be a large tubular adenoma. [id number] and postop diagnosis: Adenomatous polyp of sigmoid [...] 2019-05-07 19:31:00 Test Item Value Reference Range Interpretation Comments CARCINOEMBRYONIC ANTIGEN (BEAKER) 3.6 ng/mL 0.0-5.0 (test code = 685) Document Coordinator ID - JORDYN [id number] 17:04:00 Test Item Value Reference Range Interpretation Comments MAGNESIUM (BEAKER) (test code = 1.9 mg/dL 1.6-2.6 627) Document Coordinator ID - BSBASIC METABOLIC [id number] 17:04:00 Test Item Value Reference Range Interpretation Comments SODIUM (BEAKER) 147 meq/L 136-145 H (test code = 381) POTASSIUM (BEAKER) 3.7 meq/L 3.5-5.1 (test code = 379) CHLORIDE (BEAKER) 109 meq/L 98-107 H (test code = 382) CO2 (BEAKER) (test 25 meq/L 22-29 code = 355) BLOOD UREA NITROGEN 31 mg/dL 7-21 H (BEAKER) (test code = 354) CREATININE (BEAKER) 1.05 mg/dL 0.57-1.25 (test code = 358) GLUCOSE RANDOM 84 mg/dL 70-105 (BEAKER) (test code = 652) CALCIUM (BEAKER) 9.1 mg/dL 8.4-10.2 (test code = 697) EGFR (BEAKER) (test 50 mL/min/1.73 ESTIMA BLANCA GFR IS code = 1092) sq m NOT ACCURATE CREATININE CLEARANCE IN PREDICTING GLOMERULAR FILTRATION RATE . ESTIMATED GFR I S NOT APPLICABLE FOR DIALYSIS PATIEN TS. Document Coordinator ID - BSHEPATIC FUNCTION [id number] 17:04:00 Test Item Value Reference Range Interpretation Comments TOTAL PROTEIN (BEAKER) (test code = 5.7 gm/dL 6.0-8.3 L 770) ALBUMIN (BEAKER) (test code = 1145) 3.6 g/dL 3.5-5.0 BILIRUBIN TOTAL (BEAKER) (test code 0.5 mg/dL 0.2-1.2 = 377) BILIRUBIN DIRECT (BEAKER) (test 0.2 mg/dL 0.1-0.5 code = 706) ALKALINE PHOSPHATASE (BEAKER) (test 73 U/L 40-150 code = 346) AST (SGOT) (BEAKER) (test code = 14 U/L 5-34 353) ALT (SGPT) (BEAKER) (test code = 11 U/L 6-55 347) Document Coordinator ID - BSPROTHROMBIN [id number] 16:56:00 Test Item Value Reference Range Interpretation Comments PROTIME (BEAKER) (test code = 13.9 seconds 11.9-14.2 759) INR (BEAKER) (test code = 370) 1.1 <=5.9 Effective 08/27/2018: PT Reference Range ChangeNew: 11.9-14.2 Previous: 11.7- 14.7RECOMMENDED COUMADIN/WARFARIN INR THERAPY RANGESSTANDARD DOSE: 2.0-3.0 Includes: PROPHYLAXIS for venous thrombosis, systemic embolization; TREATMENT for venous thrombosis and/or pulmonary embolus.HIGH RISK: Target INR is2.5-3.5 for patients wiht mechanical heart valves.[id number] 16:56:00 Test Item Value Reference Range Interpretation Comments PARTIAL THROMBOPLASTIN TIME 26.1 seconds 22.5-36.0 (BEAKER) (test code = 760) CBC W/PLT COUNT & AUTO [id number] 16:43:00 Test Item Value Reference Range Interpretation Comments WHITE BLOOD CELL COUNT (BEAKER) 7.8 K/ L 3.5-10.5 (test code = 775) RED BLOOD CELL COUNT (BEAKER) 3.61 M/ L 3.93-5.22 L (test code = 761) HEMOGLOBIN (BEAKER) (test code = 11.2 GM/DL 11.2-15.7 410) HEMATOCRIT (BEAKER) (test code = 33.5 % 34.1-44.9 L 411) MEAN CORPUSCULAR VOLUME (BEAKER) 92.8 fL 79.4-94.8 (test code = 753) MEAN CORPUSCULAR HEMOGLOBIN 31.0 pg 25.6-32.2 (BEAKER) (test code = 751) MEAN CORPUSCULAR HEMOGLOBIN CONC 33.4 GM/DL 32.2-35.5 (BEAKER) (test code = 752) RED CELL DISTRIBUTION WIDTH 12.1 % 11.7-14.4 (BEAKER) (test code = 412) PLATELET COUNT (BEAKER) (test 212 K/CU MM 150-450 code = 756) MEAN PLATELET VOLUME (BEAKER) 11.7 fL 9.4-12.3 (test code = 754) NUCLEATED RED BLOOD CELLS 0 /100 WBC 0-0 (BEAKER) (test code = 413) NEUTROPHILS RELATIVE PERCENT 77 % (BEAKER) (test code = 429) LYMPHOCYTES RELATIVE PERCENT 16 % (BEAKER) (test code = 430) MONOCYTES RELATIVE PERCENT 6 % (BEAKER) (test code = 431) EOSINOPHILS RELATIVE PERCENT 0 % (BEAKER) (test code = 432) BASOPHILS RELATIVE PERCENT 1 % (BEAKER) (test code = 437) NEUTROPHILS ABSOLUTE COUNT 6.01 K/ L 1.56-6.13 (BEAKER) (test code = 670) LYMPHOCYTES ABSOLUTE COUNT 1.24 K/ L 1.18-3.74 (BEAKER) (test code = 414) MONOCYTES ABSOLUTE COUNT (BEAKER) 0.46 K/ L 0.24-0.36 H (test code = 415) EOSINOPHILS ABSOLUTE COUNT 0.03 K/ L 0.04-0.36 L (BEAKER) (test code = 416) BASOPHILS ABSOLUTE COUNT (BEAKER) 0.04 K/ L 0.01-0.08 (test code = 417) IMMATURE GRANULOCYTES-RELATIVE 1 % 0-1 PERCENT (BEAKER) (test code = 2801) CBC W/PLT COUNT & AUTO [id number] 14:26:00 Test Item Value Reference Range Interpretation Comments WHITE BLOOD CELL COUNT (BEAKER) 9.0 K/ L 3.5-10.5 (test code = 775) RED BLOOD CELL COUNT (BEAKER) 4.23 M/ L 3.93-5.22 (test code = 761) HEMOGLOBIN (BEAKER) (test code = 13.3 GM/DL 11.2-15.7 410) HEMATOCRIT (BEAKER) (test code = 40.1 % 34.1-44.9 411) MEAN CORPUSCULAR VOLUME (BEAKER) 94.8 fL 79.4-94.8 (test code = 753) MEAN CORPUSCULAR HEMOGLOBIN 31.4 pg 25.6-32.2 (BEAKER) (test code = 751) MEAN CORPUSCULAR HEMOGLOBIN CONC 33.2 GM/DL 32.2-35.5 (BEAKER) (test code = 752) RED CELL DISTRIBUTION WIDTH 12.3 % 11.7-14.4 (BEAKER) (test code = 412) PLATELET COUNT (BEAKER) (test 294 K/CU MM 150-450 code = 756) MEAN PLATELET VOLUME (BEAKER) 11.4 fL 9.4-12.3 (test code = 754) NUCLEATED RED BLOOD CELLS 0 /100 WBC 0-0 (BEAKER) (test code = 413) NEUTROPHILS RELATIVE PERCENT 72 % (BEAKER) (test code = 429) LYMPHOCYTES RELATIVE PERCENT 19 % (BEAKER) (test code = 430) MONOCYTES RELATIVE PERCENT 7 % (BEAKER) (test code = 431) EOSINOPHILS RELATIVE PERCENT 1 % (BEAKER) (test code = 432) BASOPHILS RELATIVE PERCENT 1 % (BEAKER) (test code = 437) NEUTROPHILS ABSOLUTE COUNT 6.53 K/ L 1.56-6.13 H (BEAKER) (test code = 670) LYMPHOCYTES ABSOLUTE COUNT 1.70 K/ L 1.18-3.74 (BEAKER) (test code = 414) MONOCYTES ABSOLUTE COUNT (BEAKER) 0.65 K/ L 0.24-0.36 H (test code = 415) EOSINOPHILS ABSOLUTE COUNT 0.05 K/ L 0.04-0.36 (BEAKER) (test code = 416) BASOPHILS ABSOLUTE COUNT (BEAKER) 0.05 K/ L 0.01-0.08 (test code = 417) IMMATURE GRANULOCYTES-RELATIVE 0 % 0-1 PERCENT (BEAKER) (test code = 2801) HEPATIC FUNCTION [id number] 11:28:00 Test Item Value Reference Range Interpretation Comments TOTAL PROTEIN (BEAKER) (test code = 7.0 gm/dL 6.0-8.3 770) ALBUMIN (BEAKER) (test code = 1145) 4.1 g/dL 3.5-5.0 BILIRUBIN TOTAL (BEAKER) (test code 0.7 mg/dL 0.2-1.2 = 377) BILIRUBIN DIRECT (BEAKER) (test 0.2 mg/dL 0.1-0.5 code = 706) ALKALINE PHOSPHATASE (BEAKER) (test 86 U/L 40-150 code = 346) AST (SGOT) (BEAKER) (test code = 21 U/L 5-34 353) ALT (SGPT) (BEAKER) (test code = 13 U/L 6-55 347) [id number] 11:28:00 Test Item Value Reference Range Interpretation Comments LIPASE (BEAKER) (test code = 749) 153 U/L 8-78 H BASIC METABOLIC [id number] 11:27:00 Test Item Value Reference Range Interpretation Comments SODIUM (BEAKER) 142 meq/L 136-145 (test code = 381) POTASSIUM (BEAKER) 4.6 meq/L 3.5-5.1 (test code = 379) CHLORIDE (BEAKER) 104 meq/L 98-107 (test code = 382) CO2 (BEAKER) (test 28 meq/L 22-29 code = 355) BLOOD UREA NITROGEN 27 mg/dL 7-21 H (BEAKER) (test code = 354) CREATININE (BEAKER) 1.10 mg/dL 0.57-1.25 (test code = 358) GLUCOSE RANDOM 109 mg/dL 70-105 H (BEAKER) (test code = 652) CALCIUM (BEAKER) 10.1 mg/dL 8.4-10.2 (test code = 697) EGFR (BEAKER) (test 47 mL/min/1.73 INSUFF ICIENT CLINICAL code = 1092) sq m DATA TO CALCULA TE ESTIMATED GFR. [id number] 11:19:00 Test Item Value Reference Range Interpretation Comments PROTIME (BEAKER) (test code = 12.4 seconds 11.9-14.2 759) INR (BEAKER) (test code = 370) 1.0 <=5.9 PARTIAL THROMBOPLASTIN TIME 27.3 seconds 22.5-36.0 (BEAKER) (test code = 760) Effective 08/27/2018: PT Reference Range ChangeNew: 11.9-14.2 Previous: 11.7- 14.7RECOMMENDED COUMADIN/WARFARIN INR THERAPY RANGESSTANDARD DOSE: 2.0-3.0 Includes: PROPHYLAXIS for venous thrombosis, systemic embolization; TREATMENT for venous thrombosis and/or pulmonary embolus.HIGH RISK: Target INR is2.5-3.5 for patients wiht mechanical heart valves.RAD, ABDOMEN SERIES W/ UPRIGHT PA [id number] 10:43:00Reason for exam:->ABDOMINAL PAINReason for exam:- >RECTAL [...] MDReport Verified Date/Time: 03/30/2019 10:43:48 Reading Location: [facility] Radiology Reading Room
[2021-06-30] MEDS ORDERED: CIPROFLOXACIN 400mg IV 400 MG/200 ML BAG IV ONE (04:37)
[2021-06-30] MEDS ORDERED: NA CHLORIDE 0.9% 1,000 ML ONE (04:37)
[2021-06-30] MEDS ORDERED: METRONIDAZOLE 500mg IVPB 500 MG/100 ML BAG IV ONE (04:37)
[2021-06-30 04:49] LABS: Hematocrit 37.7 % (36.0-45.0); Lymphocytes % 16.6 % (15.3-44.8); MPV 10.5 fL (7.6-11.3); RBC Red Blood Cell Count 4.02 M/uL (3.86-4.86)
[2021-06-30 04:53] LABS: Protime INR 0.91
[2021-06-30 05:09] LABS: Albumin 3.7 g/dL (3.4-5.0); Bilirubin Direct 0.1 mg/dL (0-0.2); Bilirubin Total 0.4 mg/dL (0.2-1.0); Magnesium 2.4 mg/dL (1.8-2.4); Potassium 4.7 mmol/L (3.5-5.1); Protein, Total 6.7 g/dL (6.4-8.2); Troponin High Sensitivity 13.7 pg/mL (<58.9)
--- NOTE | 2021-06-30 05:58 | EDPHYS ---
Physician Documentation [facility] Name: Kevin Andujar Age: 86 yrs Sex: Female : 1935 Arrival Date: 06/30/2021 Time: 02:30 Bed 9 Private MD: ED Physician Sylvain Mattson HPI: 06/30 05:48 This 86 yrs old Female presents to ER via Wheelchair with complaints of GI stevenson Bleeding. 05:48 The patient presents to the emergency department with rectal bleeding, bright red blood stevenson with bowel movement. Onset: The symptoms/episode began/occurred yesterday. Abdominal pain: none is appreciated. Modifying factors: The symptoms are alleviated by nothing, the symptoms are aggravated by nothing. Associated signs and symptoms: The patient has no apparent associated signs or symptoms. Severity of symptoms: At their worst the symptoms were moderate in the emergency department the symptoms are unchanged. The patient has not experienced similar symptoms in the past. Historical: - Allergies: 02:44 No Known Allergies; tw5 - Home Meds: 02:44 omeprazole 40 mg Oral cpDR 1 cap once daily [Active]; amlodipine 10 mg tab 1 tab once tw5 daily for Hypertension [Active]; ferrous gluconate 324 mg (36 mg iron) Oral tab [Active]; celecoxib 50 mg Oral cap 1 cap 2 times per day [Active]; losartan 50 mg oral tab 1 tab once daily [Active]; trazodone 50 mg Oral tab 1 tab once daily [Active]; - PMHx: 02:44 Diverticulitis; hemorrhoids; Hypertension; Urolithiasis; tw5 - PSHx: 02:44 bladder suspension; Tonsillectomy; Total abdominal hysterectomy; polp removal in colon; tw5 - Immunization history:: Pneumococcal vaccine is up to date, Flu vaccine is up to date. - Social history:: Smoking status: Patient denies any tobacco usage or history of. ROS: 05:49 Constitutional: Negative for fever, chills, and weight loss, Eyes: Negative for injury, stevenson pain, redness, and discharge, ENT: Negative for injury, pain, and discharge, Neck: Negative for injury, pain, and swelling, Cardiovascular: Negative for chest pain, palpitations, and edema, Respiratory: Negative for shortness of breath, cough, wheezing, and pleuritic chest pain, Back: Negative for injury and pain, : Negative for injury, bleeding, discharge, and swelling, MS/Extremity: Negative for injury and deformity, Skin: Negative for injury, rash, and discoloration, Neuro: Negative for headache, weakness, numbness, tingling, and seizure, Psych: Negative for depression, anxiety, suicide ideation, homicidal ideation, and hallucinations, Allergy/Immunology: Negative for hives, rash, and allergies, Endocrine: Negative for neck swelling, polydipsia, polyuria, polyphagia, and marked weight changes, Hematologic/Lymphatic: Negative for swollen nodes, abnormal bleeding, and unusual bruising. 05:49 Abdomen/GI: Positive for nausea, rectal bleeding. Exam: 05:49 Constitutional: This is a well developed, well nourished patient who is awake, alert, stevenson and in no acute distress. Head/Face: Normocephalic, atraumatic. Eyes: Pupils equal round and reactive to light, extra-ocular motions intact. Lids and lashes normal. Conjunctiva and sclera are non-icteric and not injected. Cornea within normal limits. Periorbital areas with no swelling, redness, or edema. ENT: Nares patent. No nasal discharge, no septal abnormalities noted. Tympanic membranes are normal and external auditory canals are clear. Oropharynx with no redness, swelling, or masses, exudates, or evidence of obstruction, uvula midline. Mucous membranes moist. Neck: Trachea midline, no thyromegaly or masses palpated, and no cervical lymphadenopathy. Supple, full range of motion without nuchal rigidity, or vertebral point tenderness. No Meningismus. Chest/axilla: Normal chest wall appearance and motion. Nontender with no deformity. No lesions are appreciated. Cardiovascular: Regular rate and rhythm with a normal S1 and S2. No gallops, murmurs, or rubs. Normal PMI, no JVD. No pulse deficits. Respiratory: Lungs have equal breath sounds bilaterally, clear to auscultation and percussion. No rales, rhonchi or wheezes noted. No increased work of breathing, no retractions or nasal flaring. Back: No spinal tenderness. No costovertebral tenderness. Full range of motion. Female : Normal external genitalia. Skin: Warm, dry with normal turgor. Normal color with no rashes, no lesions, and no evidence of cellulitis. MS/ Extremity: Pulses equal, no cyanosis. Neurovascular intact. Full, normal range of motion. Neuro: Awake and alert, GCS 15, oriented to person, place, time, and situation. Cranial nerves II-XII grossly intact. Motor strength 5/5 in all extremities. Sensory grossly intact. Cerebellar exam normal. Normal gait. Psych: Awake, alert, with orientation to person, place and time. Behavior, mood, and affect are within normal limits. 05:49 Abdomen/GI: Inspection: abdomen appears normal, Bowel sounds: normal, Palpation: abdomen is soft and non-tender, Rectal exam: rectal tone normal, Stool: normal, hemorrhoid(s), are not appreciated, mass, is not appreciated, swelling, is not appreciated, tenderness, is not appreciated, fecal impaction, is not appreciated, Liver: no appreciated palpable abnormalities, Hernia: not appreciated. 06:00 ECG was reviewed by the Attending Physician. [facility] Vital Signs: 02:41 Pulse 93; Resp 18; Temp 98.5; Pulse Ox 98% on R/A; Weight 39.46 kg; Height 5 ft. 2 in. tw5 (157.48 cm); Pain 10/10; 02:41 BP 139 / 97; tw5 05:00 BP 133 / 85 LA Supine (auto/reg); Pulse 90 MON; Resp 20 S; Pulse Ox 98% on R/A; Pain tk1 0/10; 06:52 BP 122 / 92 LA Supine (auto/reg); Pulse 85 MON; Resp 18; Temp 98(O); Pulse Ox 99% on tk1 R/A; Pain 0/10; 02:41 Body Mass Index 15.91 (39.46 kg, 157.48 cm) 5 02:41 "The only pain is in my knees, they are killing me." tw5 MDM: 03:52 Patient medically screened. [facility] 05:53 Differential diagnosis: gastritis, diverticulitis, hemorrhoids, varices. Data reviewed: [facility] vital signs, nurses notes, lab test result(s), EKG, radiologic studies, CT scan, plain films. Data interpreted: playground monitor: rate is 93 beats/min, rhythm is regular, Pulse oximetry: on room air is 98 %. Test interpretation: by ED physician or midlevel provider: ECG. Counseling: I had a detailed discussion with the patient and/or guardian regarding: the historical points, exam findings, and any diagnostic results supporting the discharge/admit diagnosis, lab results, radiology results, the need to transfer to another facility, for higher level of care, [facility] does not immediately have the required specialist. 06/30 03:56 Order name: Basic Metabolic Panel; Complete Time: 05:26 stevenson 06/30 03:56 Order name: CBC with Diff; Complete Time: 05:02 stevenson 06/30 03:56 Order name: LFT's; Complete Time: 05:26 stevenson 06/30 03:56 Order name: Magnesium; Complete Time: 05:26 stevenson 06/30 03:56 Order name: NT PRO-BNP; Complete Time: 05:26 stevenson 06/30 03:56 Order name: PT-INR; Complete Time: 05:02 stevenson 06/30 03:56 Order name: Troponin HS; Complete Time: 05:26 stevenson 06/30 03:56 Order name: XRAY Chest (1 view) [facility] 06/30 03:56 Order name: CT Abd/Pelvis - IV Contrast Only [facility] 06/30 03:56 Order name: SARS-COV-2 RT PCR (Document "Date of Onset" if Symptomatic); Complete Time: stevenson 05:56 06/30 03:56 Order name: Urine Culture [facility] 06/30 03:56 Order name: Type And Screen; Complete Time: 05:56 [facility] 06/30 06:22 Order name: Urine Dipstick-Ancillary [facility] 06/30 03:56 Order name: EKG; Complete Time: 04:00 [facility] 06/30 03:56 Order name: Cardiac monitoring; Complete Time: 04:48 stevenson 06/30 03:56 Order name: EKG - Nurse/Tech; Complete Time: 04:48 [facility] 06/30 03:56 Order name: IV Saline Lock; Complete Time: 04:19 stevenson 06/30 03:56 Order name: Labs collected and sent; Complete Time: 04:48 stevenson 06/30 03:56 Order name: O2 Per Protocol; Complete Time: 04:18 stevenson 06/30 03:56 Order name: O2 Sat Monitoring; Complete Time: 04:19 stevenson 06/30 03:56 Order name: IV Saline Lock - Large Bore; Complete Time: 04:19 stevenson 06/30 03:56 Order name: Urine Dipstick-Ancillary (obtain specimen); Complete Time: 06:44 stevenson EC:00 Rate is 92 beats/min. Rhythm is regular. QRS [place] is Normal. SC interval is normal. QRS stevenson interval is normal. QT interval is normal. No Q waves. T waves are Normal. No ST changes noted. Clinical impression: Normal ECG and No evidence of ischemia. Interpreted by me. Reviewed by me. Administered Medications: 04:47 Drug: NS 0.9% 500 ml Route: IV; Rate: bolus; Infused Over: 30 mins; Site: right tk1 forearm; Delivery: Primary tubing; 06:45 Follow up: Response: No adverse reaction; IV Status: Completed infusion; IV Intake: tk1 500ml 04:47 Drug: Flagyl (metroNIDAZOLE) 500 mg Volume: 100 ml; Route: IVPB; Rate: 200 ml/hr; tk1 Infused Over: 30 mins; Site: right forearm; Delivery: Primary tubing; 06:44 Follow up: Response: No adverse reaction; IV Status: Completed infusion; IV Intake: tk1 100ml 05:30 Drug: NS 0.9% 1000 ml Route: IV; Rate: 125 ml/hr; Site: right antecubital; Delivery: tk1 Primary tubing; 06:26 CANCELLED (Duplicate Order): Aspirin 81 mg PO once stevenson 06:44 Drug: Cipro (ciprofloxacin) 400 mg Volume: 200 ml; Route: IVPB; Rate: 200 ml/hr; tk1 Infused Over: 60 mins; Site: right antecubital; Delivery: Primary tubing; 07:00 Drug: ProTONIX (pantoprazole) 40 mg Route: IVP; Rate: 20 mg/min; Infused Over: 2 mins; tk1 Site: right antecubital; Disposition Summary: 06/30/21 05:58 Transfer Ordered Transfer Location: [facility] stevenson Reason: Higher level of care stevenson Condition: Fair stevenson Problem: new stevenson Symptoms: have improved stevenson Accepting Physician: to [facility](06/30/21 07:20) iw Diagnosis - GI Bleed/ Gastrointestinal hemorrhage, unspecified - lower stevenson Discharge Instructions: - Discharge Summary Sheet cs9 Forms: - Medication Reconciliation Form stevenson - SBAR form cs9 Signatures: Dispatcher [employer] Sylvain Boggs MD MD cha Williams, Irene, RN RN iw Wood, Tiffany tw5 Olga Waterman tk1 Corrections: (The following items were deleted from the chart) 06:25 06:09 D-DIMER+COAG.LAB.BRZ ordered. EDMS EDMS 06:26 06:08 Aspirin 81 mg PO once ordered. stevenson gamino 06:43 06:09 Extrem Venous W Compression [place]+US.RAD.BRZ ordered. EDMS EDMS 07:20 05:58 to [facility] stevenson iw
--- NOTE | 2021-06-30 05:58 | ER ---
Nurse's Notes [facility] Name: Kevin Andujar Age: 86 yrs Sex: Female : 1935 Arrival Date: 06/30/2021 Time: 02:30 Bed 9 Private MD: Diagnosis: GI Bleed/ Gastrointestinal hemorrhage, unspecified-lower Presentation: 06/30 02:41 Chief complaint: Patient states: "The rectal bleeding was bad tonight. I woke up and tw5 went to the bathroom and the blood was just pouring out. Bright red blood.". Coronavirus screen: Vaccine status: Patient reports receiving the 2nd dose of the covid vaccine. "I have had all three, Moderna.". Ebola Screen: Patient negative for fever greater than or equal to 101.5 degrees Fahrenheit, and additional compatible Ebola Virus Disease symptoms Patient denies exposure to infectious person. Patient denies travel to an Ebola-affected area in the 21 days before illness onset. Initial Sepsis Screen: Does the patient meet any 2 criteria? No. Patient's initial sepsis screen is negative. Does the patient have a suspected source of infection? No. Patient's initial sepsis screen is negative. Risk Assessment: Do you want to hurt yourself or someone else? Patient reports no desire to harm self or others. Onset of symptoms was June 28, 2021. 02:41 Method Of Arrival: Wheelchair tw5 02:41 Acuity: NOE 3 tw5 Triage Assessment: 02:44 General: Appears in no apparent distress. Behavior is calm, cooperative, appropriate tw5 for age. Pain: Complains of pain in right knee and left knee Pain currently is 10 out of 10 on a pain scale. Historical: - Allergies: 02:44 No Known Allergies; tw5 - Home Meds: 02:44 omeprazole 40 mg Oral cpDR 1 cap once daily [Active]; amlodipine 10 mg tab 1 tab once tw5 daily for Hypertension [Active]; ferrous gluconate 324 mg (36 mg iron) Oral tab [Active]; celecoxib 50 mg Oral cap 1 cap 2 times per day [Active]; losartan 50 mg oral tab 1 tab once daily [Active]; trazodone 50 mg Oral tab 1 tab once daily [Active]; - PMHx: 02:44 Diverticulitis; hemorrhoids; Hypertension; Urolithiasis; tw5 - PSHx: 02:44 bladder suspension; Tonsillectomy; Total abdominal hysterectomy; polp removal in colon; tw5 - Immunization history:: Pneumococcal vaccine is up to date, Flu vaccine is up to date. - Social history:: Smoking status: Patient denies any tobacco usage or history of. Screenin:50 Abuse screen: Denies threats or abuse. Denies injuries from another. Nutritional tk1 screening: No deficits noted. Tuberculosis screening: No symptoms or risk factors identified. Fall Risk None identified. Assessment: 04:17 General: Appears comfortable, slender, well groomed, well developed, well nourished. tk1 Vital Signs: 02:41 Pulse 93; Resp 18; Temp 98.5; Pulse Ox 98% on R/A; Weight 39.46 kg; Height 5 ft. 2 in. tw5 (157.48 cm); Pain 10/10; 02:41 BP 139 / 97; tw5 05:00 BP 133 / 85 LA Supine (auto/reg); Pulse 90 MON; Resp 20 S; Pulse Ox 98% on R/A; Pain tk1 0/10; 06:52 BP 122 / 92 LA Supine (auto/reg); Pulse 85 MON; Resp 18; Temp 98(O); Pulse Ox 99% on tk1 R/A; Pain 0/10; 02:41 Body Mass Index 15.91 (39.46 kg, 157.48 cm) tw5 02:41 "The only pain is in my knees, they are killing me." tw5 ED Course: 02:30 Patient arrived in ED. kc5 02:44 Triage completed. tw5 02:44 Arm band placed on right wrist. Patient notified of wait time. tw5 03:52 Sylvain Mattson MD is Attending Physician. [facility] 04:17 Olga Waterman is Primary Nurse. tk1 04:19 Basic Metabolic Panel Sent. tk1 04:19 CBC with Diff Sent. tk1 04:19 LFT's Sent. tk1 04:19 SARS-COV-2 RT PCR (Document "Date of Onset" if Symptomatic) Sent. tk1 04:19 Type And Screen Sent. tk1 04:29 Inserted saline lock: 20 gauge in right forearm, using aseptic technique. Blood tk1 collected. 04:46 XRAY Chest (1 view) In Process Unspecified. EDMS 04:48 Basic Metabolic Panel Sent. tk1 04:48 CBC with Diff Sent. tk1 04:48 LFT's Sent. tk1 04:48 Magnesium Sent. tk1 04:48 NT PRO-BNP Sent. tk1 04:48 PT-INR Sent. tk1 04:48 Troponin HS Sent. tk1 04:49 No provider procedures requiring assistance completed. tk1 06:02 CT Abd/Pelvis - IV Contrast Only In Process Unspecified. EDMS 06:50 Patient transferred, IV remains in place. tk1 Administered Medications: 04:47 Drug: NS 0.9% 500 ml Route: IV; Rate: bolus; Infused Over: 30 mins; Site: right tk1 forearm; Delivery: Primary tubing; 06:45 Follow up: Response: No adverse reaction; IV Status: Completed infusion; IV Intake: tk1 500ml 04:47 Drug: Flagyl (metroNIDAZOLE) 500 mg Volume: 100 ml; Route: IVPB; Rate: 200 ml/hr; tk1 Infused Over: 30 mins; Site: right forearm; Delivery: Primary tubing; 06:44 Follow up: Response: No adverse reaction; IV Status: Completed infusion; IV Intake: tk1 100ml 05:30 Drug: NS 0.9% 1000 ml Route: IV; Rate: 125 ml/hr; Site: right antecubital; Delivery: tk1 Primary tubing; 06:26 CANCELLED (Duplicate Order): Aspirin 81 mg PO once stevenson 06:44 Drug: Cipro (ciprofloxacin) 400 mg Volume: 200 ml; Route: IVPB; Rate: 200 ml/hr; tk1 Infused Over: 60 mins; Site: right antecubital; Delivery: Primary tubing; 07:00 Drug: ProTONIX (pantoprazole) 40 mg Route: IVP; Rate: 20 mg/min; Infused Over: 2 mins; tk1 Site: right antecubital; Intake: 06:44 IV: 100ml; Total: 100ml. tk1 06:45 IV: 500ml; Total: 600ml. tk1 Outcome: 05:58 ER care complete, transfer ordered by MD. gamino 06:50 Transferred to [facility] [place] form completed. tk1 06:50 Condition: stable 06:50 Instructed on the need for transfer. 07:20 Patient left the ED. iw Signatures: Dispatcher [employer] EDMS Srinivasan, Sylvain, MD MD stevenson Cole, Brandi, RN RN Maryan Aguilar tw5 Elaine Radford kc5 Olga Waterman tk1
[2021-06-30 06:22] LABS: Urine Blood 2+ (Negative); Urine Glucose Negative (Negative); Urine Protein 2+ (Negative)
[2021-06-30] MEDS ORDERED: PANTOPRAZOLE 40 MG INJ ONE (07:05)
[2021-06-30 08:12] VITALS: BP 122/92; TEMP 98; O2SAT 99
--- NOTE | 2021-06-30 09:11 | RAD REPORT ---
EXAM DESCRIPTION: CT - Abdomen Pelvis W Contrast - 06/30/2021 6:01 am CLINICAL HISTORY: Abdominal pain COMPARISON: 2019 TECHNIQUE: Computed axial tomography of the abdomen pelvis was obtained. 100 cc Isovue-300 was admin istered intravenously. Oral contrast was not requested which limits evaluation of bowel. All CT scans are performed using dose optimization technique as appropriate and may include automated exposure control or mA/KV adjustment according to patient size. FINDINGS: Large hiatal hernia. The liver, pancreas and adrenals appear unremarkable. Small bilateral renal cysts. Splenic granulomata. Post surgical changes involve the colon. Large amount stool is present throughout the colon. There is no evidence of diverticulitis. Bilateral inguinal hernias contain nondilated bowel Old pelvic fractures IMPRESSION: Large amount of stool throughout colon
--- NOTE | 2021-06-30 14:24 | RAD REPORT ---
EXAM DESCRIPTION: RAD - Chest Single View - 06/30/2021 4:45 am COMPARISON: None. CLINICAL HISTORY: [facility] MAIN ABDOMINAL DISTENTION FINDINGS: A single AP view of the chest demonstrates a normal cardiomediastinal silhouette. No pneumothorax or pleural effusion. Mild perihilar opacities. Emphysema. Osseous structures are intact. IMPRESSION: Emphysema. Perihilar opacities may represent fibrosis or mild edema. Electronically signed by: Jcarlos Magaña MD 06/30/2021 6:00 AM CDT Due to temporary technical issues with the PACS/Fluency reporting system, reports are being signed by the in house radiologist without review as a courtesy to ensure prompt reporting. The interpreting r adiologist is fully responsible for the content of the report.
--- NOTE | 2021-07-03 11:22 | EKG ---
Test Date: 2021-06-30 Test Time: 04:36:20 Network Operations Lead: JO MEASUREMENT RESULTS: Intervals: Rate: 92 WY: 188 QRSD: 78 QT: 346 QTc: 427 [place]: P: 83 WY: 188 QRS: 66 T: 48 INTERPRETIVE STATEMENTS: Normal sinus rhythm with sinus arrhythmia Normal ECG Compared to ECG 12/27/2018 17:12:36 No significant changes Electronically Signed On 07-03-21 11:13:43 CDT by Tee Alvarez
== END 2021-06-30 07:20 | disposition short-term general hospital (02) ==
LOC: ER 02:14
DX: K92.2 Gastrointestinal hemorrhage, unspecified (principal); R11.0 Nausea; I10 Essential (primary) hypertension; Z20.822 Contact with and (suspected) exposure to COVID-19
CPT/HCPCS: 96365; 93005; 87088; 85025; 87086; 80048; 36415; 86900; 83735; 86850; 85610; 86901; 80076; 81003; 84484; 83880; 74177; 71045; 96375; 99285; 96366; U0003; Q9967; C9113; J7030; J0744